=== PATIENT | male | born 1965 | race African-American/Black ===

== ENCOUNTER 2016-07-08 12:35 | Emergency (ER) | payer MEDICARE, MEDICAID ==
[2016-07-08 15:40] LABS: Hematocrit 45 % (42-52); Hemoglobin 14.4 g/dl (14.0-18.0); Mean Corpuscular HGB Conc 32 g/dl (31-36); Mean Corpuscular Hemoglobin 27 pg (27-31); Mean Corpuscular Volume 84 fL (80-94); Mean Platelet Volume 8 um3 (7.4-10.4); Red Blood Count 5.35 10^6/ul (4.0-5.4); Red Cell Distribution Width 15 % (10.5-15); White Blood Count 6.1 10^3/ul (3.5-10.8)
--- NOTE | 2016-07-08 15:45 | RAD ---
HISTORY: Palpitation COMPARISONS: May 09, 2016 VIEWS:1: Single frontal portable view of the chest at 3:21 PM FINDINGS: LINES AND TUBES: None. CARDIOMEDIASTINAL SILHOUETTE: The cardiomediastinal silhouette is normal for portable technique. PLEURA: The costophrenic angles are sharp. No pleural abnormalities are noted. LUNG PARENCHYMA: The lungs are clear. ABDOMEN: The upper abdomen is clear. There is no subphrenic gas. BONES AND SOFT TISSUES: No bone or soft tissue abnormalities are noted. IMPRESSION: NO ACTIVE CARDIOPULMONARY DISEASE.
[2016-07-08] MEDS ORDERED: Ketorolac INJ* 30 MG/ML 1 ML VIAL IV ONE (15:58)
[2016-07-08 16:01] LABS: ALT 31 U/L (7-52); Albumin 4.1 g/dL (3.2-5.2); Alkaline Phosphatase 113 U/L (34-104); BUN/Creatinine Ratio 12.8 (8-20); Blood Urea Nitrogen 15 mg/dL (6-24); C Reactive Protein 5.93 mg/L (< 5.00); CO2 Carbon Dioxide 28 mmol/L (22-32); Calcium 9.4 mg/dL (8.6-10.3); Chloride 106 mmol/L (101-111); Creatine Kinase 224 U/L (10-223); EGFR African American 84.2 (>60); EGFR Non-African American 65.5 (>60); Globulin 3.3 g/dL (2-4); Glucose 70 mg/dL (70-100); Lipase 21 U/L (11.0-82.0); Sodium 138 mmol/L (133-145); Total Protein 7.4 g/dL (6.4-8.9)
[2016-07-08 16:03] LABS: Troponin I 0.01 ng/mL (<0.04)
[2016-07-08 16:23] LABS: TSH (Thyroid Stimulating Horm) 1.97 mcIU/mL (0.34-5.60)
--- NOTE | 2016-07-08 16:24 | RAD ---
CLINICAL HISTORY: Left flank pain COMPARISON: April 16, 2015 TECHNIQUE: Multiple contiguous axial CT scans were obtained of the abdomen and pelvis, without intravenous contrast enhancement. Coronal and sagittal multiplanar reformations are submitted for review. Oral contrast was not administered. FINDINGS: The study is limited by the lack of intravenous contrast. This limits evaluation of the solid organs and vasculature. LUNG BASES: The lung bases are clear. LIVER: The liver is diffusely low in attenuation compared to the spleen. There are no focal hepatic parenchymal masses. The liver is mildly enlarged measuring 19.5 cm. BILE DUCTS: There is no intrahepatic or extrahepatic biliary dilatation. GALLBLADDER: The gallbladder is normal, without pericholecystic inflammatory change. PANCREAS: The pancreas is normal, without mass or ductal dilatation. SPLEEN: Normal in size and appearance. UPPER GI TRACT: Evaluation of the gastrointestinal tract is limited by incomplete gastric distention. The upper GI tract is unremarkable. SMALL BOWEL AND MESENTERY: The small bowel is normal in contour, course, and caliber. There is no obstruction or dilatation. COLON: The colon is normal in contour, course, caliber. There is no pericolonic inflammatory change. ADRENALS: Normal bilaterally. KIDNEYS: Renal cysts are noted. There is no appreciable hydronephrosis or nephrolithiasis. BLADDER: The bladder is smooth in contour. PELVIC ORGANS: The prostate gland is normal. The seminal vesicles are symmetric. AORTA: The aorta is normal. IVC: Unremarkable LYMPH NODES: There is no lymphadenopathy by size criteria. ABDOMINAL WALL: There is a fat-containing umbilical hernia. BONES AND SOFT TISSUES: There are mild diffuse degenerative changes. OTHER: None IMPRESSION: 1. HEPATOMEGALY WITH FATTY INFILTRATION OF LIVER. 2. NO APPRECIABLE HYDRONEPHROSIS OR NEPHROLITHIASIS
[2016-07-08 17:04] VITALS: BP 153/91
--- NOTE | 2016-07-08 22:00 | ED ---
Shemar Kim Matthew, scribed for Zhao Cadet MD on 07/08/16 at 1559 . Abdominal Pain/Male - HPI Summary HPI Summary: A 50 y/o male presents to the ED with diffuse abdominal pain since today. The pain is worse in the LUQ and radiates into the LLQ. Associated symptoms include nausea. The patient denies urinary symptoms and fever. He had normal BM this morning. The pain is unaffected by breathing and worsens when sitting up. He's also c/o of sinus congestion, which he states is secondary to seasonal allergies. No medications [employer]. PMHx includes CAD and 3 stents. - History of Current Complaint Chief Complaint: EDChestPainROMI Stated Complaint: JUST NOT FEELING Time Seen by Provider: 07/08/16 15:15 Hx Obtained From: Patient Onset/Duration: Gradual Onset, Lasting Hours, Still Present Timing: Constant Severity Initially: Moderate Severity Currently: Moderate Pain Intensity: 10 Pain Scale Used: 0-10 Numeric Location: Diffuse - worse in the LUQ Radiates: Yes Radiates to: Other - LLQ Aggravating Factor(s): Movement - Sitting up Alleviating Factor(s): Nothing Associated Signs And Symptoms: Positive: Nausea. Negative: Fever, Urinary Symptoms - Allergies/Home Medications Allergies/Adverse Reactions: Allergies Allergy/AdvReac Type Severity Reaction Status Date / Time Penicillins Allergy Severe Anaphylatic Verified 05/09/16 01:50 Shock Amoxicillin Allergy Unknown Swelling Verified 05/09/16 01:50 [From Augmentin XR] Clavulanic Acid Allergy Unknown Swelling Verified 05/09/16 01:50 [From Augmentin XR] VINEGAR Allergy Intermediate Hives Uncoded 05/09/16 01:50 MUSHROOMS Allergy Unknown Rash Uncoded 05/09/16 01:50 PMH/Surg Hx/FS Hx/Imm Hx Endocrine/Hematology History: Reports: Hx Anticoagulant Therapy - plavix Denies: Hx Diabetes, Hx Sickle Cell Disease, Hx Thyroid Disease Cardiovascular History: Reports: Hx Angina, Hx Coronary Artery Disease - STENTS X3 2011, Hx Hypercholesterolemia, Hx Hypertension, Hx Myocardial Infarction, Other Cardiovascular Problems/Disorders - HEART DISEASE, TIA'S, MORBID OBESITY Denies: Hx Congestive Heart Failure, Hx Pacemaker/ICD, Hx Valvular Heart Disease Respiratory History: Reports: Hx Sleep Apnea Denies: Hx Asthma, Hx Chronic Obstructive Pulmonary Disease (COPD) GI History: Reports: Hx Gastroesophageal Reflux Disease - WELL CONTROLLED Denies: Hx Ulcer History: Reports: Hx Renal Disease - cysts, Other Problems/Disorders - bilat cyst on kidneys Musculoskeletal History: Reports: Hx Arthritis - "all over", Hx Back Problems, Other Musculoskeletal History - RANDEE Denies: Hx Scoliosis Sensory History: Reports: Hx Cataracts - right eye, Hx Contacts or Glasses - glasses, Hx Hearing Aid - RIGHT EAR, Hx Hearing Problem - LEFT EAR HEARING AID Opthamlomology History: Reports: Hx Cataracts - right eye, Hx Contacts or Glasses - glasses Neurological History: Reports: Hx Transient Ischemic Attacks (TIA) Denies: Hx Dementia, Hx Headaches, Hx Seizures, Other Neuro Impairments/ Disorders Psychiatric History: Reports: Hx Depression Denies: Hx Panic Disorder - Cancer History Hx Chemotherapy: No - Surgical History Surgery Procedure, Year, and Place: APR 2004 sinus [facility] [place] ;. 2007 left knee arthroscopy [facility] [place] ;. 2012 left tympanoplasty WITH STAPES IMPLANT ([facility] MALLEOUS HEAD SERIAL # [id number] - PER [employer] INFORMATION SENT TO MRI ON ; IMPLANT IS STAINLESS STEEL STATES SOME DEGREE OF MAGNETISM TESTED MRI SAFE AT 1.5T ONLY - DR ANAYA APPROVED THIS INFORMATION FOR 1.5T ONLY). [facility] [place] ;. 2014 LEFT REVISION TYMPANOPLASTY/ MASTOIDECTOMY [facility] ;. 2011 HEART CATH - NO STENTS ;. 2010 HEART CATH WITH cardiac stents x 4 (PROMUS DRUG-ELUTING STENT OKAY IN NORMAL MODE ONLY, MAX 720 GAUSS/CM @ 1.5T) [facility] ; Hx Anesthesia Reactions: Yes - SEIZURE LIKE ACTIVITY; REINTUBATION AFTER LEFT EAR 2012 - Immunization History Date of Tetanus Vaccine: unknown Date of Influenza Vaccine: Fall 2011 Infectious Disease History: No Infectious Disease History: Denies: Hx Clostridium Difficile, Hx Hepatitis, Hx Human Immunodeficiency Virus (HIV), Hx of Known/Suspected MRSA, Hx Shingles, Hx Tuberculosis, Hx Known/ Suspected VRE, Hx Known/Suspected VRSA, History Other Infectious Disease, Traveled Outside the [place] in Last 30 Days - Family History Known Family History: Positive: Cardiac Disease, Hypertension, Diabetes - Social History Alcohol Use: None Hx Substance Use: No Substance Use Type: Reports: None Hx Tobacco Use: Yes Smoking Status (MU): Former Smoker Type: Cigarettes Length of Time of Smoking/Using Tobacco: 10-12 YRS Have You Smoked in the Last Year: No Review of Systems Constitutional: Negative Negative: Fever Eyes: Negative ENT: Negative Cardiovascular: Negative Respiratory: Negative Positive: Abdominal Pain - Diffuse worse in the LUQ , Nausea Genitourinary: Negative Musculoskeletal: Negative Skin: Negative Neurological: Negative Psychological: Normal All Other Systems Reviewed And Are Negative: Yes Physical Exam Triage Information Reviewed: Yes Vital Signs On Initial Exam: Initial Vitals Temp Pulse Resp BP Pulse Ox 97.8 F 66 20 175/92 100 07/08/16 12:42 07/08/16 12:42 07/08/16 12:42 07/08/16 12:42 07/08/16 12:42 Vital Signs Reviewed: Yes Appearance: Positive: Well-Appearing, No Pain Distress, Obese Skin: Positive: Warm, Skin Color Reflects Adequate Perfusion, Dry Head/Face: Positive: Normal Head/Face Inspection Eyes: Positive: Normal ENT: Positive: Normal ENT inspection Neck: Positive: Supple, Nontender Respiratory/Lung Sounds: Positive: Clear to Auscultation, Breath Sounds Present Cardiovascular: Positive: RRR Abdomen Description: Positive: Nontender, Soft Bowel Sounds: Positive: Present Musculoskeletal: Positive: Normal Neurological: Positive: Normal Psychiatric: Positive: Normal, Affect/Mood Appropriate - [place] Coma Scale Coma Scale Total: 15 Diagnostics - Vital Signs Vital Signs Temp Pulse Resp BP Pulse Ox 07/08/16 14:49 65 99 07/08/16 14:47 165/93 07/08/16 13:39 97.8 F 73 20 140/94 98 07/08/16 12:42 97.8 F 66 20 175/92 100 - Laboratory Lab Results: Lab Results 07/08/16 Range/Units 15:30 WBC 6.1 (3.5-10.8) 10^3/ul RBC 5.35 (4.0-5.4) 10^6/ul Hgb 14.4 (14.0-18.0) g/dl Hct 45 (42-52) % MCV 84 (80-94) fL MCH 27 (27-31) pg MCHC 32 (31-36) g/dl RDW 15 (10.5-15) % Plt Count 195 (150-450) 10^3/ul MPV 8 (7.4-10.4) um3 Neut % (Auto) 55.5 (38-83) % Lymph % (Auto) 30.5 (25-47) % [place] % (Auto) 11.0 H (1-9) % Eos % (Auto) 2.2 (0-6) % Baso % (Auto) 0.8 (0-2) % Absolute Neuts (auto) 3.4 (1.5-7.7) 10^3/ul Absolute Lymphs (auto) 1.9 (1.0-4.8) 10^3/ul Absolute Monos (auto) 0.7 (0-0.8) 10^3/ul Absolute Eos (auto) 0.1 (0-0.6) 10^3/ul Absolute Basos (auto) 0 (0-0.2) 10^3/ul Absolute Nucleated RBC 0.01 10^3/ul Nucleated RBC % 0.1 Result Diagrams: 07/08/16 15:30 07/08/16 15:30 Lab Statement: Any lab studies that have been ordered have been reviewed, and results considered in the medical decision making process. - Radiology CXR Xray Interpretation: No Acute Changes - IMPRESSION: NO ACTIVE CARDIOPULMONARY DISEASE. Radiology Interpretation Completed By: Radiologist - CT Abd/Pelvis CT CT Interpretation: Positive (See Comments) - IMPRESSION: 1. HEPATOMEGALY WITH FATTY INFILTRATION OF LIVER. 2. NO APPRECIABLE HYDRONEPHROSIS OR NEPHROLITHIASIS CT Interpretation Completed By: Radiologist - EKG 12:45 Cardiac Rate: NL - 65 bpm EKG Rhythm: Sinus Rhythm ST Segment: Non-Specific Abdominal Pain Fem Course/Dx - Course Assessment/Plan: A 50 y/o male presents to the ED with diffuse abdominal pain since today. Labs were reviewed. CXR shows no active cardiopulmonary disease. A/ P CT shows hepatomegaly with fatty infiltration of liver. EKG is NSR at 65 bpm with non-specific ST changes. The patient will be discharged home and follow-up with his PCP. - Diagnoses Provider Diagnoses: Abdominal pain Discharge - Discharge Plan Condition: Stable Disposition: HOME Patient Education Materials: Abdominal Pain (ED) Referrals: Carlin Chu MD [Primary Care Provider] - 2 Days Additional Instructions: Please follow-up with your primary care physician. The documentation as recorded by the Shemar brown Matthew accurately reflects the service I personally performed and the decisions made by , Zhao Cadet MD.
== END 2016-07-08 19:37 | disposition home or self-care (01) ==
LOC: ED 12:35
DX: R10.32 Left lower quadrant pain (principal); R10.12 Left upper quadrant pain; K76.0 Fatty (change of) liver, not elsewhere classified; R16.0 Hepatomegaly, not elsewhere classified; Z87.891 Personal history of nicotine dependence; Z79.02 Long term (current) use of antithrombotics/antiplatelets; I25.10 Atherosclerotic heart disease of native coronary artery without angina pectoris; I20.9 Angina pectoris, unspecified; Z88.1 Allergy status to other antibiotic agents; E78.00 Pure hypercholesterolemia, unspecified; I10 Essential (primary) hypertension; I25.2 Old myocardial infarction; Z86.73 Personal history of transient ischemic attack (TIA), and cerebral infarction without residual deficits; K21.9 Gastro-esophageal reflux disease without esophagitis; E66.01 Morbid (severe) obesity due to excess calories; Z88.0 Allergy status to penicillin; Z68.42 Body mass index [BMI] 45.0-49.9, adult
CPT/HCPCS: 36415; 71010; 74176; 80053; 82550; 82553; 83605; 83690; 83880; 84443; 84484; 85025; 85610; 85730; 86140; 93005; 96374; 99284; J1885

== ENCOUNTER 2016-08-10 09:52 | Emergency (ER) | payer MEDICARE, MEDICAID ==
[2016-08-10] MEDS ORDERED: Ondansetron INJ* 2 MG/ML VIAL IV ONE (10:25)
[2016-08-10] MEDS ORDERED: NS 0.9% 1000 ML* 1,000 ML IV ONE (10:25)
[2016-08-10] MEDS ORDERED: HYDROmorphone* 1 MG/ML 1 ML SYR IV ONE (10:25)
[2016-08-10 11:03] LABS: Hematocrit 42 % (42-52); Hemoglobin 13.8 g/dl (14.0-18.0); Mean Corpuscular HGB Conc 33 g/dl (31-36); Mean Corpuscular Hemoglobin 28 pg (27-31); Mean Corpuscular Volume 84 fL (80-94); Mean Platelet Volume 9 um3 (7.4-10.4); Red Cell Distribution Width 15 % (10.5-15); White Blood Count 5.4 10^3/ul (3.5-10.8)
[2016-08-10 11:26] LABS: Albumin 3.9 g/dL (3.2-5.2); BUN/Creatinine Ratio 13.3 (8-20); Calcium 9.3 mg/dL (8.6-10.3); EGFR African American 95.4 (>60); EGFR Non-African American 74.2 (>60); Globulin 2.9 g/dL (2-4); Total Bilirubin 0.4 mg/dL (0.2-1.0); Total Protein 6.8 g/dL (6.4-8.9)
[2016-08-10] MEDS ORDERED: Iohexol 350* (CONTRAST) 500 ML MDV IV ONE (11:33)
[2016-08-10 11:53] LABS: Erythrocyte Sed Rate 21 mm/Hr (0-20)
--- NOTE | 2016-08-10 12:39 | RAD ---
HISTORY: Headache, neck pain COMPARISONS: October 30, 2015 TECHNIQUE: Multiple contiguous axial CT scans were obtained of the head and neck After the administration of nonionic intravenous contrast timed to the systemic arterial phase of contrast enhancement. Coronal and sagittal multiplanar reformations are submitted for review. Multiple 3-D maximum intensity projection reconstructions are also submitted for review. FINDINGS: The study is limited by patient body habitus. CTA NECK: AORTIC ARCH: There is a normal three-vessel branching pattern of the aortic arch. There is no ostial or proximal stenosis of the cephalic great vessels. RIGHT VERTEBRAL ARTERY: The right vertebral artery is patent along its course, without stenosis. LEFT VERTEBRAL ARTERY: The left vertebral artery is patent along its course, without stenosis. DOMINANCE: The vertebral arteries are codominant. RIGHT COMMON CAROTID ARTERY: The right common carotid artery is patent. The right carotid bifurcation occurs at C3-C4 RIGHT INTERNAL CAROTID ARTERY: There is no right internal carotid artery stenosis by NASCET criteria. RIGHT EXTERNAL CAROTID ARTERY: The right external carotid artery is unremarkable. LEFT COMMON CAROTID ARTERY: The left common carotid artery is patent. The left carotid bifurcation occurs at C3-C4 LEFT INTERNAL CAROTID ARTERY: There is no left internal carotid artery stenosis by NASCET criteria. LEFT EXTERNAL CAROTID ARTERY: The left external carotid artery is unremarkable. VENOUS CIRCULATION: The venous system is unremarkable. SALIVARY GLANDS: The parotid glands, submandibular glands, sublingual glands are normal. NASAL CAVITY/NASOPHARYNX: The nasal cavity and nasopharynx are normal. ORAL CAVITY/OROPHARYNX: The oral cavity is obscured by streak artifact from dental amalgam. The visualized oral cavity and oropharynx are unremarkable. LARYNGEAL APPARATUS/HYPOPHARYNX: The laryngeal apparatus and hypopharynx are normal. UPPER AIRWAY/UPPER ESOPHAGUS: The visualized upper airway and esophagus are normal. LUNG APICES: The lung apices are clear. THYROID GLAND: The thyroid gland is normal. LYMPH NODES: There is no lymphadenopathy by size criteria. BONES AND SOFT TISSUES: There is elongation of the styloid processes bilaterally with ossification along the stylohyoid ligament CTA HEAD: INTRACRANIAL CIRCULATION: There is no aneurysm, vascular malformation, occlusion, or stenosis of the visualized intracranial circulation. The anterior communicating artery complex is clear. Bilateral posterior communicating arteries are identified. VENOUS CIRCULATION: The venous system is unremarkable. PERFUSION: There is no obvious parenchymal perfusion deficit. HEMORRHAGE/INFARCT: There is no hemorrhage or acute infarct. MASSES/SHIFT: There is no mass or shift. EXTRA-AXIAL SPACES: There are no extra-axial fluid collections. SULCI AND VENTRICLES: The sulci and ventricles are normal in size and position for the patient's stated age. CEREBRUM: There are no focal parenchymal abnormalities. BRAINSTEM: There are no focal parenchymal abnormalities. CEREBELLUM: There are no focal parenchymal abnormalities. PARANASAL SINUSES: There are-fluid levels within the maxillary sinuses bilaterally. There is mucosal thickening of ethmoid air cells and maxillary sinuses and sphenoid sinus ORBITS: The orbits are unremarkable. BONES AND SOFT TISSUE: Surgical clips are noted in the left infratemporal fossa. OTHER: The pulmonary artery is enlarged compared to the aorta IMPRESSION: 1. NO INTERNAL CAROTID ARTERY STENOSIS BY NASCET CRITERIA. 2. NO ANEURYSM, VASCULAR MALFORMATION, OCCLUSION, OR STENOSIS OF THE VISUALIZED INTRACRANIAL CIRCULATION. ELONGATION OF THE STYLOID PROCESSES BILATERALLY, WHICH CAN BE ASSOCIATED WITH [place] SYNDROME IN THE CORRECT CLINICAL SETTING. 3. MODERATE SINUS MUCOSAL INFLAMMATORY DISEASE, WITH AIR-FLUID LEVELS IN THE MAXILLARY SINUSES BILATERALLY. IN THE CORRECT CLINICAL SETTING, THIS MAY REPRESENT ACUTE SINUSITIS. 4. THERE IS ENLARGEMENT OF THE PULMONARY ARTERY WITH RESPECT TO THE AORTA, SUGGESTIVE OF PULMONARY ARTERIAL HYPERTENSION CPT II Codes: 3100F
[2016-08-10 12:40] LABS: Urine Bacteria Absent (Absent); Urine Bilirubin Negative (Negative); Urine Glucose Negative (Negative); Urine Nitrite Negative (Negative)
--- NOTE | 2016-08-10 13:20 | ED ---
Eunice Kim Anna, scribed for Cynthia Ortiz MD on 08/10/16 at 1022 . Headache - HPI Summary HPI Summary: Patient is a 50 y/o male coming to [facility] presenting with a left-sided GAMING that began two days ago. It became worse yesterday at 1230. He describes the severity of the pain as starting at 9/10 but progressing to 10/10 now. The pain extends from the top of his head on the left side and extends down to the left side of his neck and through his left arm. He states he can feel something move in his arm when he puts his arm down. He could not go back to sleep this morning. He has some left-sided weakness and bilateral leg edema at baseline. Denies difficulty speaking or tenderness on the back of his neck. His history is significant for HTN, STEMI, and a hernia. He doesnt normally get headaches. - History Of Current Complaint Chief Complaint: EDHeadache Stated Complaint: LEFT SIDE HEADACHE, LEFT ARM PAIN Time Seen by Provider: 08/10/16 10:10 Hx Obtained From: Patient - Allergies/Home Medications Allergies/Adverse Reactions: Allergies Allergy/AdvReac Type Severity Reaction Status Date / Time Penicillins Allergy Severe Anaphylatic Verified 08/10/16 09:55 Shock Amoxicillin Allergy Unknown Swelling Verified 08/10/16 09:55 [From Augmentin XR] Clavulanic Acid Allergy Unknown Swelling Verified 08/10/16 09:55 [From Augmentin XR] VINEGAR Allergy Intermediate Hives Uncoded 08/10/16 09:55 MUSHROOMS Allergy Unknown Rash Uncoded 08/10/16 09:55 PMH/Surg Hx/FS Hx/Imm Hx Endocrine/Hematology History: Reports: Hx Anticoagulant Therapy - plavix Denies: Hx Diabetes, Hx Sickle Cell Disease, Hx Thyroid Disease Cardiovascular History: Reports: Hx Angina, Hx Coronary Artery Disease - STENTS X3 2011, Hx Hypercholesterolemia, Hx Hypertension, Hx Myocardial Infarction, Other Cardiovascular Problems/Disorders - HEART DISEASE, TIA'S, MORBID OBESITY Denies: Hx Congestive Heart Failure, Hx Pacemaker/ICD, Hx Valvular Heart Disease Respiratory History: Reports: Hx Sleep Apnea Denies: Hx Asthma, Hx Chronic Obstructive Pulmonary Disease (COPD) GI History: Reports: Hx Gastroesophageal Reflux Disease - WELL CONTROLLED Denies: Hx Ulcer History: Reports: Hx Renal Disease - cysts, Other Problems/Disorders - bilat cyst on kidneys Musculoskeletal History: Reports: Hx Arthritis - "all over", Hx Back Problems, Other Musculoskeletal History - RANDEE Denies: Hx Scoliosis Sensory History: Reports: Hx Cataracts - right eye, Hx Contacts or Glasses - glasses, Hx Hearing Aid - RIGHT EAR, Hx Hearing Problem - LEFT EAR HEARING AID Opthamlomology History: Reports: Hx Cataracts - right eye, Hx Contacts or Glasses - glasses Neurological History: Reports: Hx Transient Ischemic Attacks (TIA) Denies: Hx Dementia, Hx Headaches, Hx Seizures, Other Neuro Impairments/ Disorders Psychiatric History: Reports: Hx Depression Denies: Hx Panic Disorder - Cancer History Hx Chemotherapy: No - Surgical History Surgery Procedure, Year, and Place: APR 2004 sinus [facility] ;. 2007 left knee arthroscopy [facility] ;. 2012 left tympanoplasty WITH STAPES IMPLANT ([employer] MALLEOUS HEAD SERIAL # [id number] - PER [employer] INFORMATION SENT TO MRI ON ; IMPLANT IS STAINLESS STEEL STATES SOME DEGREE OF MAGNETISM TESTED MRI SAFE AT 1.5T ONLY - DR ANAYA APPROVED THIS INFORMATION FOR 1.5T ONLY). [facility] [place] ;. 2014 LEFT REVISION TYMPANOPLASTY/ MASTOIDECTOMY [facility] ;. 2011 HEART CATH - NO STENTS ;. 2010 HEART CATH WITH cardiac stents x 4 (PROMUS DRUG-ELUTING STENT OKAY IN NORMAL MODE ONLY, MAX 720 GAUSS/CM @ 1.5T) [facility] ; Hx Anesthesia Reactions: Yes - SEIZURE LIKE ACTIVITY; REINTUBATION AFTER LEFT EAR 2012 - Immunization History Date of Tetanus Vaccine: unknown Date of Influenza Vaccine: Fall 2011 Infectious Disease History: No Infectious Disease History: Denies: Hx Clostridium Difficile, Hx Hepatitis, Hx Human Immunodeficiency Virus (HIV), Hx of Known/Suspected MRSA, Hx Shingles, Hx Tuberculosis, Hx Known/ Suspected VRE, Hx Known/Suspected VRSA, History Other Infectious Disease, Traveled Outside the [place] in Last 30 Days - Family History Known Family History: Positive: Cardiac Disease, Hypertension, Diabetes - Social History Lives: Alone Alcohol Use: None Hx Substance Use: No Substance Use Type: Reports: None Hx Tobacco Use: Yes Smoking Status (MU): Former Smoker Type: Cigarettes Length of Time of Smoking/Using Tobacco: 10-12 YRS Have You Smoked in the Last Year: No Review of Systems Positive: Arthralgia, Edema - bilateral legs, baseline Positive: Headache, Weakness - left-sided, baseline. Negative: Slurred Speech All Other Systems Reviewed And Are Negative: Yes Physical Exam Triage Information Reviewed: Yes Vital Signs On Initial Exam: Initial Vitals Temp Pulse Resp BP Pulse Ox 97.1 F 70 18 157/102 100 08/10/16 09:55 08/10/16 09:55 08/10/16 09:55 08/10/16 09:55 08/10/16 09:55 Vital Signs Reviewed: Yes Appearance: Positive: Well-Appearing, No Pain Distress Skin: Positive: Warm, Skin Color Reflects Adequate Perfusion, Dry Eyes: Positive: EOMI, SOLO ENT: Positive: Pharynx normal, TMs normal Neck: Positive: Supple, Tenderness @ - left side Respiratory/Lung Sounds: Positive: Clear to Auscultation, Breath Sounds Present Cardiovascular: Positive: RRR. Negative: Murmur, Rub, Other - gallop Abdomen Description: Positive: Nontender, Soft. Negative: Distended, Guarding, Other: - rebound Bowel Sounds: Positive: Present Musculoskeletal: Positive: Strength/ROM Intact, Edema Left - 2+, Edema Right - 2 + Neurological: Positive: Alert, Oriented to Person Place, Time, CN Intact II-III - II-XII Diagnostics - Vital Signs Vital Signs Temp Pulse Resp BP Pulse Ox 08/10/16 09:55 97.1 F 70 18 157/102 100 - Laboratory Lab Results: Lab Results 08/10/16 08/10/16 08/10/16 Range/Units 10:41 10:45 10:45 WBC 5.4 (3.5-10.8) 10^3/ul RBC 5.00 (4.0-5.4) 10^6/ul Hgb 13.8 L (14.0-18.0) g/dl Hct 42 (42-52) % MCV 84 (80-94) fL MCH 28 (27-31) pg MCHC 33 (31-36) g/dl RDW 15 (10.5-15) % Plt Count 177 (150-450) 10^3/ul MPV 9 (7.4-10.4) um3 Neut % (Auto) 63.7 (38-83) % Lymph % (Auto) 22.8 L (25-47) % Todd % (Auto) 9.8 H (1-9) % Eos % (Auto) 2.8 (0-6) % Baso % (Auto) 0.9 (0-2) % Absolute Neuts (auto) 3.5 (1.5-7.7) 10^3/ul Absolute Lymphs (auto) 1.2 (1.0-4.8) 10^3/ul Absolute Monos (auto) 0.5 (0-0.8) 10^3/ul Absolute Eos (auto) 0.1 (0-0.6) 10^3/ul Absolute Basos (auto) 0 (0-0.2) 10^3/ul Absolute Nucleated RBC 0.01 10^3/ul Nucleated RBC % 0.1 ESR 21 H (0-20) mm/Hr Carbon Monoxide Screen (<3.5) % Sodium 138 (133-145) mmol/L Potassium 4.0 (3.5-5.0) mmol/L Chloride 106 (101-111) mmol/L Carbon Dioxide 26 (22-32) mmol/L Anion Gap 6 (2-11) mmol/L BUN 14 (6-24) mg/dL Creatinine 1.05 (0.67-1.17) mg/dL Est GFR ( Amer) 95.4 (>60) Est GFR (Non-Af Amer) 74.2 (>60) BUN/Creatinine Ratio 13.3 (8-20) Glucose 119 H (70-100) mg/dL Lactic Acid 1.3 (0.5-2.0) mmol/L Calcium 9.3 (8.6-10.3) mg/dL Total Bilirubin 0.40 (0.2-1.0) mg/dL AST 16 (13-39) U/L ALT 24 (7-52) U/L Alkaline Phosphatase 100 (34-104) U/L Total Protein 6.8 (6.4-8.9) g/dL Albumin 3.9 (3.2-5.2) g/dL Globulin 2.9 (2-4) g/dL Albumin/Globulin Ratio 1.3 (1-3) Urine Color Urine Appearance Urine pH (5-9) Ur Specific [place] (1.010-1.030) Urine Protein (Negative) Urine Ketones (Negative) Urine Blood (Negative) Urine Nitrate (Negative) Urine Bilirubin (Negative) Urine Urobilinogen (Negative) Ur Leukocyte Esterase (Negative) Urine WBC (Auto) (Absent) Urine RBC (Auto) (Absent) Ur Squamous Epith Cells (Absent) Urine Bacteria (Absent) Urine Glucose (Negative) 08/10/16 08/10/16 Range/Units 11:22 12:15 WBC (3.5-10.8) 10^3/ul RBC (4.0-5.4) 10^6/ul Hgb (14.0-18.0) g/dl Hct (42-52) % MCV (80-94) fL MCH (27-31) pg MCHC (31-36) g/dl RDW (10.5-15) % Plt Count (150-450) 10^3/ul MPV (7.4-10.4) um3 Neut % (Auto) (38-83) % Lymph % (Auto) (25-47) % Todd % (Auto) (1-9) % Eos % (Auto) (0-6) % Baso % (Auto) (0-2) % Absolute Neuts (auto) (1.5-7.7) 10^3/ul Absolute Lymphs (auto) (1.0-4.8) 10^3/ul Absolute Monos (auto) (0-0.8) 10^3/ul Absolute Eos (auto) (0-0.6) 10^3/ul Absolute Basos (auto) (0-0.2) 10^3/ul Absolute Nucleated RBC 10^3/ul Nucleated RBC % ESR (0-20) mm/Hr Carbon Monoxide Screen <3.5 (<3.5) % Sodium (133-145) mmol/L Potassium (3.5-5.0) mmol/L Chloride (101-111) mmol/L Carbon Dioxide (22-32) mmol/L Anion Gap (2-11) mmol/L BUN (6-24) mg/dL Creatinine (0.67-1.17) mg/dL Est GFR ( Amer) (>60) Est GFR (Non-Af Amer) (>60) BUN/Creatinine Ratio (8-20) Glucose (70-100) mg/dL Lactic Acid (0.5-2.0) mmol/L Calcium (8.6-10.3) mg/dL Total Bilirubin (0.2-1.0) mg/dL AST (13-39) U/L ALT (7-52) U/L Alkaline Phosphatase (34-104) U/L Total Protein (6.4-8.9) g/dL Albumin (3.2-5.2) g/dL Globulin (2-4) g/dL Albumin/Globulin Ratio (1-3) Urine Color Yellow Urine Appearance Clear Urine pH 7.0 (5-9) Ur Specific [place] 1.021 (1.010-1.030) Urine Protein Negative (Negative) Urine Ketones Negative (Negative) Urine Blood 1+ H (Negative) Urine Nitrate Negative (Negative) Urine Bilirubin Negative (Negative) Urine Urobilinogen Negative (Negative) Ur Leukocyte Esterase Negative (Negative) Urine WBC (Auto) Trace(0-5/hpf) (Absent) Urine RBC (Auto) 2+(6-10/hpf) H (Absent) Ur Squamous Epith Cells Present H (Absent) Urine Bacteria Absent (Absent) Urine Glucose Negative (Negative) Result Diagrams: 08/10/16 10:41 08/10/16 10:45 Lab Statement: Any lab studies that have been ordered have been reviewed, and results considered in the medical decision making process. - CT Head CTA CT Interpretation: Positive (See Comments) CT Interpretation Completed By: Radiologist - IMPRESSION: 1. NO INTERNAL CAROTID ARTERY STENOSIS BY NASCET CRITERIA. 2. NO ANEURYSM, VASCULAR MALFORMATION, OCCLUSION, OR STENOSIS OF THE VISUALIZED INTRACRANIAL CIRCULATION. ELONGATION OF THE STYLOID PROCESSES BILATERALLY, WHICH CAN BE ASSOCIATED WITH LEVELOCK SYNDROME IN THE CORRECT CLINICAL SETTING. 3. MODERATE SINUS MUCOSAL INFLAMMATORY DISEASE, WITH AIR-FLUID LEVELS IN THE MAXILLARY SINUSES BILATERALLY. IN THE CORRECT CLINICAL SETTING, THIS MAY REPRESENT ACUTE SINUSITIS. 4. THERE IS ENLARGEMENT OF THE PULMONARY ARTERY WITH RESPECT TO THE AORTA, SUGGESTIVE OF PULMONARY ARTERIAL HYPERTENSION - EKG 1013 Cardiac Rate: NL - 66 bpm EKG Rhythm: Sinus Rhythm EKG Interpretation: Non-specific T-wave changes lateral lead National Institutes Of Health - NIH Scale Level of Consciousness: Alert/Keenly Responsive Ask Patient the Month and His/Her Age: Both Correct Ask Pt to Open/Close Eyes and Doctor Of Audiology/Release Non-Paretic Hand: Both Correctly Best Gaze (Only Horizontal Eye Movement): Normal Visual Field Testing: No Visual Loss Facial Paresis-Pt to Smile & Close Eyes or Grimace Symmetry: Normal/Symmetrical Motor Function - Right Arm: No Drift-Holds 10 Seconds Motor Function - Left Arm: No Drift-Holds 10 Seconds Motor Function - Right Leg: No Drift-Holds 10 Seconds Motor Function - Left Leg: No Drift-Holds 10 Seconds Limb Ataxia-Must be out of Proportion to Weakness Present: Absent Sensory (Use Pinprick to Test Arms/Legs/Trunk/Face): Pinprick Less on Affected Best Language (Describe Picture, Name Items): No Aphasia Dysarthria (Read Several Words): Normal Extinction and Inattention: No Abnormality Total Score: 1 Re-Evaluation - Re-Evaluation First Eval Re-Evaluation Time: 13:07 Comment: Discussed results and plan of care with patient. Patient agrees with plan. Headache Course/Dx - Course Course Of Treatment: 50 yo male with multiple medical problems with left sided gaming radiating down neck to arm, cta head and neck neg except for sinusitis. Of note he had a mastoidectomy on that left side. Pt will be treated for sinusitis and given pain meds close f/u pmd. I doubt sah, nih scale negative - Diagnoses Provider Diagnoses: Headache, Sinusitis Discharge - Discharge Plan Condition: Critical Disposition: HOME Prescriptions: Levofloxacin TAB* [Levaquin TAB*] 750 mg PO DAILY #10 tab oxyCODONE/Acetamin 5/325 MG* [Percocet 5/325 TAB*] 1 tab PO Q8H PRN #14 tab MDD 3 PRN Reason: Pain The documentation as recorded by the Eunice brown Anna accurately reflects the service I personally performed and the decisions made by me, Cynthia Ortiz MD.
[2016-08-10 13:47] VITALS: BP 135/85
== END 2016-08-10 13:46 | disposition home or self-care (01) ==
LOC: ED 09:52
DX: J32.9 Chronic sinusitis, unspecified (principal); R51 Headache; Z87.891 Personal history of nicotine dependence
CPT/HCPCS: 36415; 70496; 70498; 80053; 81003; 81015; 82375; 83605; 85025; 85652; 93005; 96374; 96375; 99282; J1170; J2405; Q9967

== ENCOUNTER 2016-09-20 10:20 | Observation (INO) | payer MEDICARE, MEDICAID ==
[2016-09-20] MEDS ORDERED: Nitroglycerin TAB 0.4 MG* 0.4 MG TAB SL ONE (11:16)
[2016-09-20] MEDS ORDERED: Aspirin Low Dose CHEW TAB* 81 MG PO ONE (11:16)
[2016-09-20 11:26] LABS: Hematocrit 47 % (42-52); Mean Corpuscular HGB Conc 32 g/dl (31-36); Mean Corpuscular Hemoglobin 27 pg (27-31); Mean Corpuscular Volume 84 fL (80-94); Mean Platelet Volume 9 um3 (7.4-10.4); Red Blood Count 5.57 10^6/ul (4.0-5.4); Red Cell Distribution Width 15 % (10.5-15); White Blood Count 6.5 10^3/ul (3.5-10.8)
[2016-09-20] MEDS ORDERED: Morphine INJ* 4 MG/ML 1 ML SYRINGE IV ONE (11:33)
[2016-09-20] MEDS ORDERED: Ondansetron INJ* 2 MG/ML VIAL IV ONE (11:33)
[2016-09-20 11:38] LABS: Albumin 4.4 g/dL (3.2-5.2); BUN/Creatinine Ratio 12.5 (8-20); Calcium 9.7 mg/dL (8.6-10.3); EGFR African American 81.8 (>60); EGFR Non-African American 63.6 (>60); Globulin 3.2 g/dL (2-4); Potassium 3.8 mmol/L (3.5-5.0); Total Bilirubin 0.5 mg/dL (0.2-1.0); Total Protein 7.6 g/dL (6.4-8.9)
[2016-09-20 11:40] LABS: Troponin I 0.01 ng/mL (<0.04)
[2016-09-20] MEDS ORDERED: Ondansetron INJ* 2 MG/ML VIAL IV PRN (13:11)
[2016-09-20] MEDS ORDERED: Albuterol 2.5 MG/3 ML NEB.SOL* (0.083%) INH PRN (13:16)
[2016-09-20] MEDS ORDERED: Potassium Chlor TAB* 20 MEQ TAB.ER PO ONE (13:24)
[2016-09-20 13:41] LABS: Magnesium 2.1 mg/dL (1.9-2.7)
[2016-09-20] MEDS: Acetaminophen TAB* 325 MG PO PRN ×2 (14:52→21:29)
[2016-09-20] MEDS: Heparin VIAL(*) 5000 UNITS/ML VIAL (FIVE THOUSAND) SUBCUT SCH ×2 (14:54→21:29)
--- NOTE | 2016-09-20 16:00 | HP ---
HISTORY AND PHYSICAL: DATE OF ADMISSION: 09/20/16 PRIMARY CARE PROVIDER: Carlin Chu MD. ATTENDING PHYSICIAN WHILE IN THE HOSPITAL: Renaldo Pacheco MD * (report dictated by Justin Bains NP). CHIEF COMPLAINT: Chest pain. HISTORY OF PRESENT ILLNESS: Mr. Glaser is a 50-year-old male patient who comes into the ER today with complaints of chest discomfort on the right side described as, in his words, a nudge. He says it does not feel like a sharp pain , but he does state that it gets worse with taking a deep breath in the office and states the pain was going down his right arm. He noticed the pain last night. He did not seek attention for it. He was supposed to go to a primary care provider appointment today. The patient explained to them that he had been having chest pain. He actually woke up again at 5:30 this morning, had right-sided chest pain again, worse with taking a deep breath and also going down the right arm. He said that he felt very warm when he came into the ER and he felt nauseous. He was having this constant right-sided chest discomfort. It got worse with taking a deep breath. He said he also was having some frequent palpitations, he says like when he was having palpitations in his chest. He denied having any recent cough, fevers, chills, no alleviating factors. He took an aspirin, but he has not taken a nitro. He states that he has not had any fevers and there has been no change in medications and no URI-type symptoms. He had associated nausea with this, but no vomiting. He came to the ER, he was evaluated here and there was concern because the patient had a significant cardiac history with history of CAD, MT, PVCs, hypertension, he has had a stroke in the past and he is a former smoker. Because of these risk factors and he has a family history, the hospitalist service was asked to evaluate for admission. PAST MEDICAL HISTORY: Significant for: 1. History of MT. 2. CAD. 3. RANDEE. 4. PVCs. 5. History of a run of V-tach on Holter monitor. 6. Venous insufficiency. 7. Arthritis. 8. Asthma. 9. Hypertension. 10. History of CVA with no residual deficits. PAST SURGICAL HISTORY: He has had a cardiac catheterization. He has had 3 stents. He has had inner ear surgery and he has had knee arthroscopies. HOME MEDICATIONS: According to an office note from his primary benefits coordinator includes: 1. Potassium chloride 80 mEq by mouth alternating with 2 tablets a day. 2. ProAir 2 puffs 4 times a day as needed. 3. Lipitor 40 mg at bedtime. 4. Nitro 0.4 mg sublingual every 5 minutes as needed for chest pain x3 doses. 5. Triamterene with hydrochlorothiazide 1 tablet p.o. daily, but he has been out of this medication for a while and this was in May. 6. Aspirin 325 mg p.o. daily. 7. Plavix 75 mg p.o. daily. 8. Bystolic 5 mg daily. 9. Advair 250/50 mcg 1 inhaler every 12 hours. 10. Albuterol nebulizer 1 neb every 6 hours as needed. ALLERGIES TO MEDICATIONS: INCLUDE PENICILLIN, VINEGAR, and MUSHROOMS. FAMILY HISTORY: Both his parents had CHF. He did have a brother who of a sudden cardiac event. SOCIAL HISTORY: He does not smoke anymore. He use to be a pack a day smoker. He does not drink alcohol. Surrogate decision maker is his sister, Valarie. REVIEW OF SYSTEMS: There is no documented fever. He denied having any significant weight change. There was no double vision. There is no ear discharge. He denies having any rhinorrhea, no sore throat, no thyroid enlargement. Chest pain per my HPI. No orthopnea. No nocturnal dyspnea. There is no abdominal pain. No nausea, no vomiting. No dysuria, no frequency, no seizure. No loss of consciousness. No pruritus. No skin ulcerations. Review of 14 systems completed, all others negative. PHYSICAL EXAMINATION GENERAL: At this time, Mr. Glaser is a 50-year-old male patient. He is morbidly obese. He is sitting in the ER stretcher. He does not appear to be in any acute distress. VITAL SIGNS: Blood pressure 118/89, pulse 63, respirations 18, O2 sat 99%, temperature 96.9. HEENT: Head is atraumatic, normocephalic. Eyes: EOMs are intact. Sclerae anicteric and not pale. Throat: Oral mucosa appears to be moist. No oropharyngeal erythema. NECK: Supple. LUNGS: Clear to auscultation bilaterally. No wheezes, rales, or rhonchi. HEART: Sounds S1, S2. Regular rate and rhythm. No murmurs, rubs, or gallops were appreciated. ABDOMEN: Soft, flat, nontender. Bowel sounds present. EXTREMITIES: Pulses 2+ throughout. He does have chronic venous insufficiency, but no ulcers. He did have +1 pitting edema bilaterally. NEUROLOGICALLY: He is awake. He is alert. He is oriented x3. Tongue midline. Acting Instructor are equal. No gross focal deficits. SKIN: Grossly intact. DIAGNOSTIC STUDIES/LAB DATA: The labs today revealed a WBC of 6.5, RBC of 5.57 , hemoglobin of 15.0, hematocrit of 47, platelet count of 197. Sodium 138, potassium 3.8, chloride 106, bicarb 26, BUN 15, creatinine 1.20, glucose 92, lactate 1.1. AST 18, ALT 29, alk phos 112, troponin 0.01. He had an EKG obtained today, which revealed a normal sinus rhythm with PVC, he had inverted T-waves in lead I and aVL, which he has had in the past. No significant changes with the exception of PVCs. He had a chest x-ray obtained today which on my impression, I do not appreciate any acute infiltrates or effusions. Report is pending. No pulmonary edema. Old medical records were reviewed. ASSESSMENT AND PLAN: Mr. Glaser is a 50-year-old male patient with well- documented history of coronary artery disease and history of MT, coming into the ER today with complaints of chest pain. He will be admitted under observation status for: 1. Chest pain. His symptoms are atypical, but he has significant risk factors for acute coronary syndrome. I would like to go ahead and check a D-dimer, place him on telemetry, cycle his troponins, get a lipid panel and A1c in the morning. He will continue with aspirin, statin, beta-angelo and Plavix for the time being, cycle his troponins, and obtain Cardiology input, but I do think he needs a stress test. He has not had one in a year according to Dr. Alcaraz's notes and that was normal about a year ago, so I think a repeat stress test is appropriate. 2. History of coronary artery disease. Continue medications as prescribed and continue the aspirin, statin, and Plavix. 3. Obstructive sleep apnea. Continue his meds as prescribed. 4. History of premature ventricular contractions. We will try to keep his potassium right around 4 and keep his mag again around 2. His potassium was 3.8 , so I am going to go ahead and give him 20 mEq potassium today. We will add on a magnesium. He does have a history of ventricular tachycardia, again we will try to keep his electrolytes, his mag around 2 and his potassium around 4. 5. Hyperlipidemia. Continue statin therapy. 6. History of asthma. Continue p.r.n. albuterol and Advair. 7. Hypertension. Continue meds as prescribed. 8. History of cerebrovascular accident. Continue secondary prevention. 9. Arthritis. P.r.n. Tylenol as available. Follow up with primary. 10. Venous insufficiency. He will continue with elevating the lower extremities. 11. DVT prophylaxis. He is high risk, we will place him on heparin subcu. 12. Fluids, electrolytes, and nutrition. He can have a heart healthy diet and will be n.p.o. after midnight. 13. Code status is full code. TIME SPENT: On this admission 60 minutes, greater than half the time was spent [id number] with the patient obtaining my history and physical; other half the time was spent going over the plan of care with the patient and implementing the plan of care. I did discuss the plan of care with my attending, Dr. Pacheco. He is in agreement. JUSTIN BAINS NP CC: Carlin Chu MD * [id number]/[facility] #: [id number] MEDHAT
[2016-09-20] MEDS: Mometasone/Formoter 200/5 MDI INH SCH (21:47)
[2016-09-21] MEDS: Heparin VIAL(*) 5000 UNITS/ML VIAL (FIVE THOUSAND) SUBCUT SCH ×3 (05:26→20:16)
[2016-09-21 06:14] LABS: Hematocrit 43 % (42-52); Hemoglobin 13.8 g/dl (14.0-18.0); Mean Corpuscular HGB Conc 32 g/dl (31-36); Mean Corpuscular Hemoglobin 27 pg (27-31); Mean Corpuscular Volume 85 fL (80-94); Mean Platelet Volume 8 um3 (7.4-10.4); Red Blood Count 5.06 10^6/ul (4.0-5.4); Red Cell Distribution Width 15 % (10.5-15); White Blood Count 4.6 10^3/ul (3.5-10.8)
[2016-09-21 06:35] LABS: BUN/Creatinine Ratio 10.3 (8-20); Calcium 9.2 mg/dL (8.6-10.3); EGFR African American 84.2 (>60); EGFR Non-African American 65.5 (>60); HDL Cholesterol 31.1 mg/dL; Potassium 3.6 mmol/L (3.5-5.0)
[2016-09-21] MEDS: Clopidogrel TAB* 75 MG PO SCH (08:16)
[2016-09-21] MEDS: Atorvastatin* 40 MG TAB PO SCH (08:16)
[2016-09-21] MEDS ORDERED: NEBIVOLOL 5 MG PO SCH (09:00)
[2016-09-21] MEDS: Mometasone/Formoter 200/5 MDI INH SCH ×2 (09:01→19:45)
--- NOTE | 2016-09-21 09:21 | RAD ---
INDICATION: Chest pain. COMPARISON: Comparison is made with a prior chest x-ray study from July 08, 2016. TECHNIQUE: A portable view of the chest was obtained. FINDINGS: Cardiac and mediastinal contours appear to be within normal limits. The lungs are clear. No pleural effusion is seen. IMPRESSION: NO EVIDENCE FOR ACUTE DISEASE.
[2016-09-21] MEDS ORDERED: Regadenoson* 0.4 MG/5 ML SYRINGE ONE (10:34)
--- NOTE | 2016-09-21 13:51 | PN ---
Subjective Date of Service: 09/21/16 Interval History: No more chest pain since admission. He wasn't sure if his chest pain yesterday was cardiac, so he didn't take a NTG. No new c/o. Objective Active Medications: Acetaminophen (Tylenol Tab*) 650 mg PO Q4H PRN PRN Reason: FEVER/PAIN Last Admin: 09/20/16 21:29 Dose: 650 mg Albuterol (Ventolin 2.5 Mg/3 Ml Neb.Alem*) 2.5 mg INH Q2H PRN PRN Reason: SOB/WHEEZING Atorvastatin Calcium (Lipitor*) 40 mg PO DAILY [facility] Last Admin: 09/21/16 08:16 Dose: 40 mg Clopidogrel Bisulfate (Plavix Tab*) 75 mg PO DAILY [facility] Last Admin: 09/21/16 08:16 Dose: 75 mg Heparin Sodium (Porcine) (Heparin Vial(*)) 5,000 units SUBCUT Q8HR [facility] Last Admin: 09/21/16 05:26 Dose: 5,000 units Mometasone Furoate/Formoterol Fumar (Dulera 200/5 Mdi*) 2 puff INH BID [facility] Last Admin: 09/21/16 09:01 Dose: 2 puff Nebivolol (Bystolic Tab (Nf)) 5 mg PO DAILY [facility] Ondansetron HCl (Zofran Inj*) 4 mg IV Q6H PRN PRN Reason: NAUSEA Vital Signs 09/20/16 09/20/16 09/20/16 13:56 14:00 14:28 Temperature 97.1 F 97.8 F Pulse Rate 63 58 61 Respiratory 16 15 18 Rate Blood Pressure 149/87 130/83 147/99 (mmHg) O2 Sat by Pulse 96 97 Oximetry 09/20/16 09/20/16 09/20/16 15:27 19:17 20:00 Temperature 97.6 F 97.9 F Pulse Rate 56 57 51 Respiratory 18 18 16 Rate Blood Pressure 136/76 140/86 (mmHg) O2 Sat by Pulse 100 98 97 Oximetry 09/20/16 09/21/16 09/21/16 23:55 03:35 07:31 Temperature 97.5 F 98.4 F Pulse Rate 59 58 58 Respiratory 12 16 16 Rate Blood Pressure 159/111 152/106 135/81 (mmHg) O2 Sat by Pulse 98 98 98 Oximetry 09/21/16 09:02 Temperature Pulse Rate 86 Respiratory Rate Blood Pressure (mmHg) O2 Sat by Pulse 96 Oximetry Oxygen Devices in Use Now: CPAP/BiPAP Appearance: Partly up in bed. He was sleeping with his own CPAP in place. Eyes: No Scleral Icterus Neck: NL Appearance and Movements; NL JVP, No Thyroid Enlargement, Masses Respiratory: Symmetrical Chest Expansion and Respiratory Effort, Clear to Auscultation, Clear to Percussion Cardiovascular: NL Sounds; No Murmurs; No JVD, RRR, No Edema, - Extremities: No Edema, No Clubbing, Cyanosis, - Skin: No Rash or Ulcers, No Nodules or Sclerosis, - Neurological: Alert and Oriented x 3, NL Sensation Result Diagrams: 09/21/16 05:35 09/21/16 05:35 Assess/Plan/Problems-Billing Assessment: - Patient Problems (1) CAD (coronary artery disease) Current Visit: Yes Status: Acute Code(s): I25.10 - ATHSCL HEART DISEASE OF [place] CORONARY ARTERY W/O ANG PCTRS SNOMED Code(s): 93357473 Comment: [place], 3 stents 2010. Second part of chemical nuclear stress 09/22. (2) RANDEE (obstructive sleep apnea) Current Visit: No Status: Chronic Priority: Medium Code(s): G47.33 - OBSTRUCTIVE SLEEP APNEA (ADULT) (PEDIATRIC) SNOMED Code(s): 18109654 Comment: Pt brought his own CPAP, seems to like to use it. (3) HTN (hypertension) Current Visit: No Status: Acute Priority: Medium Code(s): I10 - ESSENTIAL (PRIMARY) HYPERTENSION SNOMED Code(s): 30305884 Comment: Continue nebivolol. (4) Morbid obesity Current Visit: Yes Status: Acute Code(s): E66.01 - MORBID (SEVERE) OBESITY DUE TO EXCESS CALORIES SNOMED Code(s): 314748227 Comment: BMI 49.4. (5) CVA (cerebral vascular accident) Current Visit: No Status: Acute Priority: Medium Code(s): I63.9 - CEREBRAL INFARCTION, UNSPECIFIED SNOMED Code(s): 993003747 Comment: S/p TPA 2016 MRI brain on 10/31/15 unremarkable Echo 10/30/15: EF 55%, mod LVH
[2016-09-22] MEDS: Heparin VIAL(*) 5000 UNITS/ML VIAL (FIVE THOUSAND) SUBCUT SCH (05:51)
[2016-09-22 07:58] VITALS: BP 148/80
[2016-09-22] MEDS: Mometasone/Formoter 200/5 MDI INH SCH (08:02)
[2016-09-22] MEDS: Atorvastatin* 40 MG TAB PO SCH (08:26)
[2016-09-22] MEDS: Clopidogrel TAB* 75 MG PO SCH (08:26)
[2016-09-22] MEDS ORDERED: Nebivolol TAB (NF) 2.5 MG TAB PO SCH (09:00)
--- NOTE | 2016-09-22 10:43 | RAD ---
Edited for charges. INDICATION: Chest pain with multiple risk factors for coronary artery disease. COMPARISON: Most recent similar examination is dated July 14, 2012 that demonstrated a large fixed defect in the inferior lateral left ventricular wall. TECHNIQUE: SPECT imaging was performed. Stress images only were acquired after the injection of 25 millicuries of technetium 99m tetrofosmin. The patient received intravenous Lexiscan prior to the stress image acquisition. FINDINGS: The dynamic images reveal paradoxical wall motion at the anteroseptal left ventricular wall similar in appearance to the previous cardiac scan. Again noted is a fixed defect involving the inferior lateral ventricular wall. This appearance is similar to the previous cardiac scan. The ejection fraction is measured at 54%. IMPRESSION: There is scintigraphic evidence for a fixed defect involving the inferior lateral left ventricular wall similar in appearance to the July 14, 2012 examination. ASSESSMENT: Intermediate to high risk. Based on imaging criteria from ACC/AHA 2002 Guideline Update for the Management of Patients With Chronic Stable Angina Table 23. Noninvasive Risk Stratification. MTDD
--- NOTE | 2016-09-22 11:12 | DCNOTE ---
Subjective Date of Service: 09/22/16 Interval History: No more chest discomforta. No new c/o. Objective Active Medications: Acetaminophen (Tylenol Tab*) 650 mg PO Q4H PRN PRN Reason: FEVER/PAIN Last Admin: 09/20/16 21:29 Dose: 650 mg Albuterol (Ventolin 2.5 Mg/3 Ml Neb.Alem*) 2.5 mg INH Q2H PRN PRN Reason: SOB/WHEEZING Aspirin (Ecotrin Ec Tab*) 325 mg PO DAILY [facility] Atorvastatin Calcium (Lipitor*) 40 mg PO DAILY [facility] Last Admin: 09/22/16 08:26 Dose: 40 mg Clopidogrel Bisulfate (Plavix Tab*) 75 mg PO DAILY [facility] Last Admin: 09/22/16 08:26 Dose: 75 mg Heparin Sodium (Porcine) (Heparin Vial(*)) 5,000 units SUBCUT Q8HR [facility] Last Admin: 09/22/16 05:51 Dose: 5,000 units Mometasone Furoate/Formoterol Fumar (Dulera 200/5 Mdi*) 2 puff INH BID [facility] Last Admin: 09/22/16 08:02 Dose: 2 puff Nebivolol (Bystolic Tab (Nf)) 5 mg PO DAILY [facility] Last Admin: 09/22/16 10:15 Dose: 5 mg Ondansetron HCl (Zofran Inj*) 4 mg IV Q6H PRN PRN Reason: NAUSEA Vital Signs 09/21/16 09/21/16 09/21/16 15:31 19:42 19:48 Temperature 97.3 F 97.8 F Pulse Rate 62 64 68 Respiratory 20 16 18 Rate Blood Pressure 156/110 133/65 (mmHg) O2 Sat by Pulse 99 99 95 Oximetry 09/21/16 09/21/16 09/22/16 23:29 23:40 00:50 Temperature 97.8 F Pulse Rate 58 59 Respiratory 16 Rate Blood Pressure 165/106 139/84 (mmHg) O2 Sat by Pulse 97 96 Oximetry 09/22/16 09/22/16 09/22/16 03:18 07:42 08:00 Temperature 97.3 F 98.4 F Pulse Rate 59 58 Respiratory 16 16 17 Rate Blood Pressure 134/80 148/80 (mmHg) O2 Sat by Pulse 97 99 Oximetry 09/22/16 08:03 Temperature Pulse Rate 59 Respiratory 17 Rate Blood Pressure (mmHg) O2 Sat by Pulse 97 Oximetry Oxygen Devices in Use Now: None Appearance: Alert, sitting on the edge of his bed. In good spirits. Looks comfortable. Eyes: No Scleral Icterus Neurological: Alert and Oriented x 3, NL Sensation Result Diagrams: 09/21/16 05:35 09/21/16 05:35 Assess/Plan/Problems-Billing Assessment: - Patient Problems (1) CAD (coronary artery disease) Current Visit: Yes Status: Acute Code(s): I25.10 - ATHSCL HEART DISEASE OF [place] CORONARY ARTERY W/O ANG PCTRS SNOMED Code(s): 65057980 Comment: [place], 3 stents 2010. Chemical nuclear stress showed old IVMI, nl LVEF , no reversible defects, unchanged c/w 07/14/12. Pt will take his ASA when he gets home. (2) RANDEE (obstructive sleep apnea) Current Visit: No Status: Chronic Priority: Medium Code(s): G47.33 - OBSTRUCTIVE SLEEP APNEA (ADULT) (PEDIATRIC) SNOMED Code(s): 05919802 Comment: Pt brought his own CPAP, seems to like to use it. (3) HTN (hypertension) Current Visit: No Status: Acute Priority: Medium Code(s): I10 - ESSENTIAL (PRIMARY) HYPERTENSION SNOMED Code(s): 92546190 Comment: Continue nebivolol. (4) Morbid obesity Current Visit: Yes Status: Acute Code(s): E66.01 - MORBID (SEVERE) OBESITY DUE TO EXCESS CALORIES SNOMED Code(s): 020548183 Comment: BMI 49.4. (5) CVA (cerebral vascular accident) Current Visit: No Status: Acute Priority: Medium Code(s): I63.9 - CEREBRAL INFARCTION, UNSPECIFIED SNOMED Code(s): 453670704 Comment: S/p TPA 2016 MRI brain on 10/31/15 unremarkable Echo 10/30/15: EF 55%, mod LVH Status and Disposition: Discharge now. Fup Dr. Chu.
--- NOTE | 2016-09-23 02:50 | DS ---
CC: Carlin Chu MD DISCHARGE SUMMARY: DATE OF ADMISSION: DATE OF DISCHARGE: 09/22/16 HOSPITAL COURSE: This 51-year-old man presented with chest pain. It was a right- sided pain, went down his right arm. It is not related to exertion. I note he has had quite a number of evaluations in the emergency room as well as admissions for chest pain, all with normal troponin levels, actual ly over 100 normal troponin levels. He did, however, have an inferior wall MD in 2010 with 3 stents . Rest of the history is detailed in the admission note. The patient was admitted to the telemetry unit. He had 3 troponin levels, all of which were normal. He underwent a chemical stress tests, which showed an LVEF of 54%. There was an old inferior wall MD, unchanged in appearance from 07/14/12. There was no reversible defects. The patient was discharged with no change in his medication. He will take his daily aspirin when he gets home on the day of discharge. FINAL DIAGNOSES: 1. Atypical chest pain. 2. Coronary artery disease. 3. Obstructive sleep apnea. 4. Hypertension. 5. Morbid obesity. 6. History of cerebrovascular accident. DISCHARGE MEDICATIONS: 1. Aspirin 325 mg daily. 2. Calcium carbonate 500 mg p.r.n. 3. Atorvastatin 40 mg daily. 4. Nebivolol 5 mg daily. 5. Clopidogrel 75 mg daily. 6. Fluticasone/salmeterol 250/50 mcg 1 puff b.i.d. 7. Albuterol 2.5 mg by inhalation q.i.d. p.r.n. 8. Nitroglycerin 0.4 mg sublingual every 5 minutes p.r.n. 9. Albuterol inhaler 2 puffs 4 times a day p.r.n. [id number]/[facility] #: [id number]
[2016-09-23] MEDS ORDERED: Aspirin EC TAB* 325 MG PO SCH (09:00)
== END 2016-09-22 12:00 | disposition home or self-care (01) ==
LOC: ED 10:20 → MEDTELE 13:10
PROVIDERS: ADMIT Internal Medicine; ATTEND Internal Medicine
DX: R07.89 Other chest pain (principal); I25.10 Atherosclerotic heart disease of native coronary artery without angina pectoris; I10 Essential (primary) hypertension; G47.33 Obstructive sleep apnea (adult) (pediatric); E66.01 Morbid (severe) obesity due to excess calories; I25.2 Old myocardial infarction; J45.909 Unspecified asthma, uncomplicated; I49.3 Ventricular premature depolarization; R94.31 Abnormal electrocardiogram [ECG] [EKG]; Z86.73 Personal history of transient ischemic attack (TIA), and cerebral infarction without residual deficits; Z79.82 Long term (current) use of aspirin; Z79.899 Other long term (current) drug therapy; Z88.0 Allergy status to penicillin; Z88.8 Allergy status to other drugs, medicaments and biological substances; Z87.891 Personal history of nicotine dependence
CPT/HCPCS: 36415; 71010; 78452; 80048; 80053; 80061; 83036; 83605; 83735; 84484; 85025; 85379; 85610; 93005; 93017; 94640; 94760; 96372; 96374; 96375; 99284; A9270-GY; A9502; G0378; J1644; J2270; J2405; J2785

== ENCOUNTER 2016-10-30 09:38 | Emergency (ER) | payer MEDICARE, MEDICAID ==
[2016-10-30] MEDS ORDERED: Aspirin Low Dose CHEW TAB* 81 MG PO ONE (09:50)
[2016-10-30 10:14] LABS: Hematocrit 42 % (42-52); Hemoglobin 13.6 g/dl (14.0-18.0); Mean Corpuscular HGB Conc 32 g/dl (31-36); Mean Corpuscular Hemoglobin 27 pg (27-31); Mean Corpuscular Volume 85 fL (80-94); Mean Platelet Volume 8 um3 (7.4-10.4); Red Blood Count 5.02 10^6/ul (4.0-5.4); Red Cell Distribution Width 15 % (10.5-15); White Blood Count 5.2 10^3/ul (3.5-10.8)
[2016-10-30 10:31] LABS: Albumin 3.7 g/dL (3.2-5.2); BUN/Creatinine Ratio 12.4 (8-20); Calcium 9.1 mg/dL (8.6-10.3); EGFR African American 87.3 (>60); EGFR Non-African American 67.9 (>60); Globulin 2.8 g/dL (2-4); Potassium 3.6 mmol/L (3.5-5.0); Total Bilirubin 0.5 mg/dL (0.2-1.0); Total Protein 6.5 g/dL (6.4-8.9)
[2016-10-30 10:33] LABS: Troponin I 0.01 ng/mL (<0.04)
--- NOTE | 2016-10-30 11:08 | RAD ---
Indication: Chest pain. Single frontal view of the chest performed at 1038 hours was reviewed. Comparison is made with previous exam dated September 30, 2016. No mediastinal shift is noted. Heart is of normal size and configuration. Lung alves appear clear. IMPRESSION: NO ACTIVE CARDIOPULMONARY DISEASE IS NOTED.
[2016-10-30] MEDS ORDERED: Nitroglycerin TAB 0.4 MG* 0.4 MG TAB SL ONE (11:11)
[2016-10-30 11:12] LABS: T4 6.65 mcg/mL (6.09-12.23)
[2016-10-30 11:13] LABS: TSH (Thyroid Stimulating Horm) 2.27 mcIU/mL (0.34-5.60)
[2016-10-30] MEDS ORDERED: Ketorolac INJ* 30 MG/ML 1 ML VIAL IM ONE (13:58)
[2016-10-30 14:11] VITALS: BP 130/74
--- NOTE | 2016-10-30 18:56 | ED ---
Herrera Kim Thomas, scribed for Carlin Pardo MD on 10/30/16 at 1120 . HPI Chest Pain - HPI Summary HPI Summary: Pt is a 51 y/o male presenting to the ED c/o CP that began this morning when he woke up. The pain is located in the left anterior chest without radiation. Pt reports that pain is severe, ranked 9/10 in the room and moderately severe, 6/10 , at triage. The pain is intermittent and pt reports that it pauses and then starts" with the pain being characterized as sharp. Aggravated and alleviated by nothing. Additionally complains of palpitations, SOB, and diaphoresis. Denies N/V, fevers, chills, cough. - History of Current Complaint Chief Complaint: EDChestPainROMI Time Seen by Provider: 10/30/16 09:51 Hx Obtained From: Patient Onset/Duration: Started Hours Ago - this morning when he woke up, Still Present Timing: Intermittent, Lasting Hours Initial Severity: Severe Current Severity: Severe Pain Intensity: 6 Pain Scale Used: 0-10 Numeric Chest Pain Location: Left Anterior Chest Pain Radiates: No Character: Sharp/Stabbing Aggravating Factor(s): Nothing Alleviating Factor(s): Nothing Associated Signs and Symptoms: Positive: Shortness of Breath, Diaphoresis, Palpitations. Negative: Fever, Chills, Nausea, Cough, Vomiting - Additional Pertinent History Primary Care Physician: [id number] - Allergy/Home Medications Allergies/Adverse Reactions: Allergies Allergy/AdvReac Type Severity Reaction Status Date / Time Penicillins Allergy Severe Anaphylatic Verified 10/30/16 09:47 Shock Amoxicillin Allergy Unknown Swelling Verified 10/30/16 09:47 [From Augmentin XR] Clavulanic Acid Allergy Unknown Swelling Verified 10/30/16 09:47 [From Augmentin XR] VINEGAR Allergy Intermediate Hives Uncoded 10/30/16 09:47 MUSHROOMS Allergy Unknown Rash Uncoded 10/30/16 09:47 PMH/Surg Hx/FS Hx/Imm Hx Endocrine/Hematology History: Reports: Hx Anticoagulant Therapy - plavix Denies: Hx Diabetes, Hx Sickle Cell Disease, Hx Thyroid Disease Cardiovascular History: Reports: Hx Angina, Hx Coronary Artery Disease, Hx Hypercholesterolemia, Hx Hypertension, Hx Myocardial Infarction, Other Cardiovascular Problems/Disorders - HEART DISEASE, CARDIAC EVENT MONITOR IMPLANTED Denies: Hx Congestive Heart Failure, Hx Pacemaker/ICD, Hx Valvular Heart Disease Respiratory History: Reports: Hx Asthma, Hx Sleep Apnea Denies: Hx Chronic Obstructive Pulmonary Disease (COPD) GI History: Reports: Hx Gastroesophageal Reflux Disease Denies: Hx Ulcer History: Reports: Hx Renal Disease - cysts, Other Problems/Disorders - bilat cyst on kidneys Musculoskeletal History: Reports: Hx Arthritis, Hx Back Problems, Other Musculoskeletal History - RANDEE Denies: Hx Scoliosis Sensory History: Reports: Hx Cataracts - right eye, Hx Hearing Problem - LEFT EAR HEARING AID Denies: Hx Contacts or Glasses, Hx Hearing Aid Opthamlomology History: Reports: Hx Cataracts - right eye Denies: Hx Contacts or Glasses Neurological History: Reports: Hx Transient Ischemic Attacks (TIA) Denies: Hx Dementia, Hx Headaches, Hx Seizures, Other Neuro Impairments/ Disorders Psychiatric History: Reports: Hx Depression Denies: Hx Panic Disorder - Cancer History Hx Chemotherapy: No - Surgical History Surgery Procedure, Year, and Place: APR 2004 sinus [facility] ;. 2007 left knee arthroscopy [facility] ;. 2012 left tympanoplasty WITH STAPES IMPLANT (L2C MALLEOUS HEAD SERIAL # [id number] - PER L2C INFORMATION SENT TO MRI ON ; IMPLANT IS STAINLESS STEEL STATES SOME DEGREE OF MAGNETISM TESTED MRI SAFE AT 1.5T ONLY - DR ANAYA APPROVED THIS INFORMATION FOR 1.5T ONLY). [facility] [place] ;. 2014 LEFT REVISION TYMPANOPLASTY/ MASTOIDECTOMY [facility] ;. 2011 HEART CATH - NO STENTS ;. 2010 HEART CATH WITH cardiac stents x 4 (PROMUS DRUG-ELUTING STENT OKAY IN NORMAL MODE ONLY, MAX 720 GAUSS/CM @ 1.5T) [facility] ; Hx Anesthesia Reactions: Yes - SEIZURE LIKE ACTIVITY; REINTUBATION AFTER LEFT EAR 2012 - Immunization History Date of Tetanus Vaccine: unknown Date of Influenza Vaccine: Fall 2011 Infectious Disease History: No Infectious Disease History: Denies: Hx Clostridium Difficile, Hx Hepatitis, Hx Human Immunodeficiency Virus (HIV), Hx of Known/Suspected MRSA, Hx Shingles, Hx Tuberculosis, Hx Known/ Suspected VRE, Hx Known/Suspected VRSA, History Other Infectious Disease, Traveled Outside the [place] in Last 30 Days - Family History Known Family History: Positive: Cardiac Disease, Hypertension, Diabetes - Social History Alcohol Use: None Hx Substance Use: No Substance Use Type: Reports: None Hx Tobacco Use: Yes Smoking Status (MU): Former Smoker Type: Cigarettes Length of Time of Smoking/Using Tobacco: 10-12 YRS Have You Smoked in the Last Year: No Review of Systems Positive: Skin Diaphoresis. Negative: Fever, Chills Positive: Palpitations, Chest Pain Positive: Shortness Of Breath. Negative: Cough Negative: Vomiting, Nausea All Other Systems Reviewed And Are Negative: Yes Physical Exam - Summary Physical Exam Summary: VITAL SIGNS: Reviewed. GENERAL: Patient is an obese male who is lying comfortably in the stretcher. NAD. HEAD AND FACE: No signs of trauma. No ecchymosis, hematomas or skull depressions. No sinus tenderness. EYES: PERRLA, EOMI x 2, No injected conjunctiva, no nystagmus. EARS: Hearing grossly intact. Ear canals and tympanic membranes are within normal limits. MOUTH: Oropharynx within normal limits. NECK: Supple, trachea is midline, no adenopathy, no JVD, no carotid bruit, no c- spine tenderness, neck with full ROM. CHEST: Symmetric, no tenderness at palpation LUNGS: Clear to auscultation bilaterally. No wheezing or crackles. CVS: Regular rate and rhythm, S1 and S2 present, no murmurs or gallops appreciated. ABDOMEN: Soft, non-tender. No signs of distention. No rebound no guarding, and no masses palpated. Bowel sounds are normal. EXTREMITIES: FROM in all major joints, no edema, no cyanosis or clubbing. NEURO: Alert and oriented x 3. No acute neurological deficits. Speech is normal and follows commands. SKIN: Dry and warm Triage Information Reviewed: Yes Vital Signs On Initial Exam: Initial Vitals Temp Pulse Resp BP Pulse Ox 97.3 F 73 20 136/85 96 10/30/16 09:40 10/30/16 09:40 10/30/16 09:40 10/30/16 09:40 10/30/16 09:40 Vital Signs Reviewed: Yes - [place] Coma Scale Coma Scale Total: 15 Diagnostics - Vital Signs Vital Signs Temp Pulse Resp BP Pulse Ox 10/30/16 11:00 60 17 96 10/30/16 10:00 65 17 97 10/30/16 09:53 96 10/30/16 09:45 74 16 95 10/30/16 09:44 97.3 F 69 18 136/85 96 10/30/16 09:40 97.3 F 73 20 136/85 96 - Laboratory Lab Results: Lab Results 10/30/16 10/30/16 10/30/16 Range/Units 09:57 09:57 09:57 WBC 5.2 (3.5-10.8) 10^3/ul RBC 5.02 (4.0-5.4) 10^6/ul Hgb 13.6 L (14.0-18.0) g/dl Hct 42 (42-52) % MCV 85 (80-94) fL MCH 27 (27-31) pg MCHC 32 (31-36) g/dl RDW 15 (10.5-15) % Plt Count 179 (150-450) 10^3/ul MPV 8 (7.4-10.4) um3 Neut % (Auto) 56.9 (38-83) % Lymph % (Auto) 29.3 (25-47) % Elk % (Auto) 9.2 H (1-9) % Eos % (Auto) 3.8 (0-6) % Baso % (Auto) 0.8 (0-2) % Absolute Neuts (auto) 3.0 (1.5-7.7) 10^3/ul Absolute Lymphs (auto) 1.5 (1.0-4.8) 10^3/ul Absolute Monos (auto) 0.5 (0-0.8) 10^3/ul Absolute Eos (auto) 0.2 (0-0.6) 10^3/ul Absolute Basos (auto) 0 (0-0.2) 10^3/ul Absolute Nucleated RBC 0 10^3/ul Nucleated RBC % 0.1 Sodium 139 (133-145) mmol/L Potassium 3.6 (3.5-5.0) mmol/L Chloride 107 (101-111) mmol/L Carbon Dioxide 27 (22-32) mmol/L Anion Gap 5 (2-11) mmol/L BUN 14 (6-24) mg/dL Creatinine 1.13 (0.67-1.17) mg/dL Est GFR ( Amer) 87.3 (>60) Est GFR (Non-Af Amer) 67.9 (>60) BUN/Creatinine Ratio 12.4 (8-20) Glucose 141 H (70-100) mg/dL Lactic Acid 1.5 (0.5-2.0) mmol/L Calcium 9.1 (8.6-10.3) mg/dL Magnesium 2.0 (1.9-2.7) mg/dL Total Bilirubin 0.50 (0.2-1.0) mg/dL AST 22 (13-39) U/L ALT 35 (7-52) U/L Alkaline Phosphatase 99 (34-104) U/L Total Creatine Kinase 179 (10-223) U/L CK-MB (CK-2) 1.8 (0.6-6.3) ng/mL Troponin I 0.01 (<0.04) ng/mL B-Natriuretic Peptide ( - 100) pg/mL Total Protein 6.5 (6.4-8.9) g/dL Albumin 3.7 (3.2-5.2) g/dL Globulin 2.8 (2-4) g/dL Albumin/Globulin Ratio 1.3 (1-3) TSH Pending Thyroxine (T4) 6.65 (6.09-12.23) mcg/mL 10/30/16 Range/Units 09:57 WBC (3.5-10.8) 10^3/ul RBC (4.0-5.4) 10^6/ul Hgb (14.0-18.0) g/dl Hct (42-52) % MCV (80-94) fL MCH (27-31) pg MCHC (31-36) g/dl RDW (10.5-15) % Plt Count (150-450) 10^3/ul MPV (7.4-10.4) um3 Neut % (Auto) (38-83) % Lymph % (Auto) (25-47) % Elk % (Auto) (1-9) % Eos % (Auto) (0-6) % Baso % (Auto) (0-2) % Absolute Neuts (auto) (1.5-7.7) 10^3/ul Absolute Lymphs (auto) (1.0-4.8) 10^3/ul Absolute Monos (auto) (0-0.8) 10^3/ul Absolute Eos (auto) (0-0.6) 10^3/ul Absolute Basos (auto) (0-0.2) 10^3/ul Absolute Nucleated RBC 10^3/ul Nucleated RBC % Sodium (133-145) mmol/L Potassium (3.5-5.0) mmol/L Chloride (101-111) mmol/L Carbon Dioxide (22-32) mmol/L Anion Gap (2-11) mmol/L BUN (6-24) mg/dL Creatinine (0.67-1.17) mg/dL Est GFR ( Amer) (>60) Est GFR (Non-Af Amer) (>60) BUN/Creatinine Ratio (8-20) Glucose (70-100) mg/dL Lactic Acid (0.5-2.0) mmol/L Calcium (8.6-10.3) mg/dL Magnesium (1.9-2.7) mg/dL Total Bilirubin (0.2-1.0) mg/dL AST (13-39) U/L ALT (7-52) U/L Alkaline Phosphatase (34-104) U/L Total Creatine Kinase (10-223) U/L CK-MB (CK-2) (0.6-6.3) ng/mL Troponin I (<0.04) ng/mL B-Natriuretic Peptide 18 ( - 100) pg/mL Total Protein (6.4-8.9) g/dL Albumin (3.2-5.2) g/dL Globulin (2-4) g/dL Albumin/Globulin Ratio (1-3) TSH Thyroxine (T4) (6.09-12.23) mcg/mL Result Diagrams: 10/30/16 09:57 10/30/16 09:57 Lab Statement: Any lab studies that have been ordered have been reviewed, and results considered in the medical decision making process. - Radiology CXR Xray Interpretation: No Acute Changes - NO ACTIVE CARDIOPULMONARY DISEASE IS NOTED. 10:38. Radiology Interpretation Completed By: Radiologist - EKG 09:43 Cardiac Rate: NL - 60 bpm EKG Rhythm: Sinus Rhythm EKG Interpretation: No ST elevation. T-wave inversions on V5, V6, and aVL. EKG Comparison: No Significant Change Chest Pain Course/Dx - Course Course Of Treatment: Pt is a 51 y/o male presenting to the ED c/o CP that began this morning when he woke up. The pain is located in the left anterior chest without radiation. Pt reports that pain is severe, ranked 9/10 in the room and moderately severe, 6/10, at triage. The pain is intermittent and pt reports that it pauses and then starts" with the pain being characterized as sharp. Aggravated and alleviated by nothing. Additionally complains of palpitations, SOB, and diaphoresis. Denies N/V, fevers, chills, cough. Test results were within normal limits. The troponin #1 was 0.01. Four hours later, the troponin # 2 was 0.01. He was given NTG with no symptom improvement. He was given Toradol and symtoms were resolved. At this point, patient is asymptomatic. There is low suspicion for ACS becuase the troponin is negative and the chest pain resolved with Toradol. There is no suspicion of pulmonary embolism because the patient is not tachycardic and not hypoxic. The patient was discharged home to follow up with primary care provider. He was recommended to return if he developes any other chest pain, SOB, N/V. He understands and agrees. He is hemodynamically stable and A&Ox3. - Chest Pain Differential Diagnosis/HQI/PQRI: Acute ID, ACS, Angina, CHF, Chest Wall, GI Disease, Lower Respiratory Infection - Diagnoses Provider Diagnoses: Chest pain Discharge - Discharge Plan Condition: Stable Disposition: HOME Patient Education Materials: Chest Pain (ED) Referrals: Carlin Chu MD [Primary Care Provider] - 3 Days The documentation as recorded by the eHrrera brown Thomas accurately reflects the service I personally performed and the decisions made by , Carlin Pardo MD.
== END 2016-10-30 14:14 | disposition home or self-care (01) ==
LOC: ED 09:38
DX: R07.9 Chest pain, unspecified (principal); R06.02 Shortness of breath; R00.2 Palpitations; Z87.891 Personal history of nicotine dependence
CPT/HCPCS: 36415; 71010; 80053; 82550; 82553; 83605; 83735; 83880; 84436; 84443; 84484; 85025; 93005; 96372; 99283; A9270-GY; J1885

== ENCOUNTER 2016-11-21 08:36 | Emergency (ER) | payer MEDICARE, MEDICAID ==
[2016-11-21] MEDS ORDERED: Ondansetron INJ* 2 MG/ML VIAL IV ONE (10:36)
[2016-11-21] MEDS ORDERED: Ketorolac INJ* 30 MG/ML 1 ML VIAL IV ONE (10:36)
[2016-11-21] MEDS: NS 0.9% 1000 ML* 2,000 ML IV ONE (11:04)
[2016-11-21 11:32] LABS: Hematocrit 45 % (42-52); Hemoglobin 14.7 g/dl (14.0-18.0); Mean Corpuscular HGB Conc 33 g/dl (31-36); Mean Corpuscular Hemoglobin 28 pg (27-31); Mean Corpuscular Volume 85 fL (80-94); Mean Platelet Volume 8 um3 (7.4-10.4); Red Cell Distribution Width 15 % (10.5-15); White Blood Count 4.8 10^3/ul (3.5-10.8)
[2016-11-21 11:54] LABS: Albumin 3.8 g/dL (3.2-5.2); BUN/Creatinine Ratio 10.7 (8-20); C Reactive Protein 8.04 mg/L (< 5.00); Calcium 9.3 mg/dL (8.6-10.3); EGFR African American 79.9 (>60); EGFR Non-African American 62.1 (>60); Globulin 3.2 g/dL (2-4); Potassium 4.1 mmol/L (3.5-5.0)
[2016-11-21] MEDS ORDERED: Iohexol 300* (CONTRAST) 10 ML SDV IV ONE (12:10)
[2016-11-21 12:15] LABS: Total Bilirubin 0.5 mg/dL (0.2-1.0)
[2016-11-21 12:18] LABS: Urine Bacteria Absent (Absent); Urine Bilirubin Negative (Negative); Urine Glucose Negative (Negative); Urine Nitrite Negative (Negative)
--- NOTE | 2016-11-21 13:39 | RAD ---
CLINICAL HISTORY: Left lower quadrant pain, left flank pain COMPARISON: July 08, 2016 TECHNIQUE: Multiple contiguous axial CT scans were obtained of the abdomen and pelvis after the administration of intravenous contrast. Coronal and sagittal multiplanar reformations are submitted for review. Oral contrast was administered. Delayed images were obtained through the abdomen and pelvis. FINDINGS: LUNG BASES: The lung bases are clear. LIVER: The liver is enlarged measuring 20 cm in long axis. The liver is diffusely low in attenuation. BILE DUCTS: There is no intrahepatic or extrahepatic biliary dilatation. GALLBLADDER: The gallbladder is normal, without pericholecystic inflammatory change. PANCREAS: The pancreas is normal, without mass or ductal dilatation. SPLEEN: Normal in size and appearance. UPPER GI TRACT: Evaluation of the gastrointestinal tract is limited by incomplete gastric distention. The upper GI tract is unremarkable. SMALL BOWEL AND MESENTERY: The small bowel is normal in contour, course, and caliber. There is no obstruction or dilatation. COLON: The colon is normal in contour, course, caliber. There is no pericolonic inflammatory change. ADRENALS: Normal bilaterally. KIDNEYS: Bilateral renal cysts are noted. BLADDER: The bladder is smooth in contour. PELVIC ORGANS: The prostate gland is normal. The seminal vesicles are symmetric. AORTA: The aorta is normal. IVC: Unremarkable LYMPH NODES: There is no lymphadenopathy by size criteria. ABDOMINAL WALL: There is no evidence for abdominal wall hernia. BONES AND SOFT TISSUES: There are mild diffuse degenerative changes. OTHER: None IMPRESSION: 1. HEPATOMEGALY WITH FATTY INFILTRATION OF LIVER. 2. NO ACUTE CT PATHOLOGY OF THE VISUALIZED ABDOMEN OR PELVIS
[2016-11-21] MEDS ORDERED: Morphine INJ* 4 MG/ML 1 ML SYRINGE IV ONE (14:39)
--- NOTE | 2016-11-21 15:49 | RAD ---
HISTORY: Left testicular and inguinal pain COMPARISONS: May 01, 2013 TECHNIQUE: Multiple transverse and longitudinal ultrasound images were obtained of the scrotum, using grayscale, color Doppler, and spectral Doppler imaging. FINDINGS: RIGHT: RIGHT TESTICLE: The right testicle measures 3.7 x 2.4 x 2.9 cm. The right testicle is homogeneous in echotexture, without testicular parenchymal mass. A hyperechoic area is felt to represent the rete testis.. Normal arterial and venous waveforms are identified within the right testicle on spectral Doppler imaging. RIGHT EPIDIDYMIS: The right epididymis measures 1.3 cm at the head. An appendix epididymis is noted. RIGHT SCROTUM: There is large right hydrocele with minimal echogenic debris. LEFT: LEFT TESTICLE: The left testicle measures 3.5 x 2.2 x 2.7 cm. The left testicle is homogeneous in echotexture, without testicular parenchymal mass. Normal arterial and venous waveforms are identified within the left testicle on spectral Doppler imaging. LEFT EPIDIDYMIS: The left epididymis measures 1.8 cm at the head. An appendix epididymis is noted. LEFT SCROTUM: There is large left hydrocele with internal echogenic debris. OTHER: Directed images of the left inguinal region in the area of pain demonstrate no sonographic abnormality. IMPRESSION: 1. NO SONOGRAPHIC FEATURES OF TORSION. PLEASE NOTE THAT PARTIAL OR INTERMITTENT TORSION MAY BE SONOGRAPHICALLY NORMAL. 2. NO TESTICULAR PARENCHYMAL MASS. 3. LARGE BILATERAL HYDROCELES. 4. NO SONOGRAPHIC ABNORMALITY IN THE AREA OF PAIN OF THE LEFT INGUINAL REGION.
--- NOTE | 2016-11-21 16:47 | ED ---
Nila Kim Alfonso, scribed for Jeffery John MD on 11/21/16 at 1022 . Abdominal Pain/Male - HPI Summary HPI Summary: This patient is a 51 year old male presenting to [facility] c/o sharp left-sided flank pain since yesterday. The pain has become worse and is now in his back and groin. He reports experiencing a similar pain in the past. Last BM this morning. He rates the pain 8/10 in severity. Sx aggravated and alleviated by nothing. He denies testicular pain, urinary symptoms, fever, chills and melena. No abdominal PSHx reported. - History of Current Complaint Chief Complaint: EDFlankPain Stated Complaint: LT SIDE FLANK PAIN Time Seen by Provider: 11/21/16 10:14 Hx Obtained From: Patient Onset/Duration: Sudden Onset, Lasting Days - Yesterday, Worse Since Timing: Constant Severity Initially: Severe Severity Currently: Severe Pain Intensity: 8 Pain Scale Used: 0-10 Numeric Location: Flank - Left Radiates: Yes Radiates to: Back, Other - Groin Character: Sharp Aggravating Factor(s): Nothing Alleviating Factor(s): Nothing Associated Signs And Symptoms: Positive: Other - Negative testicular pain, urinary symptoms, fever, chills and melena. - Allergies/Home Medications Allergies/Adverse Reactions: Allergies Allergy/AdvReac Type Severity Reaction Status Date / Time Penicillins Allergy Severe Anaphylatic Verified 11/21/16 08:45 Shock Amoxicillin Allergy Unknown Swelling Verified 11/21/16 08:45 [From Augmentin XR] Clavulanic Acid Allergy Unknown Swelling Verified 11/21/16 08:45 [From Augmentin XR] VINEGAR Allergy Intermediate Hives Uncoded 11/21/16 08:45 MUSHROOMS Allergy Unknown Rash Uncoded 11/21/16 08:45 PMH/Surg Hx/FS Hx/Imm Hx Endocrine/Hematology History: Reports: Hx Anticoagulant Therapy - plavix Denies: Hx Diabetes, Hx Sickle Cell Disease, Hx Thyroid Disease Cardiovascular History: Reports: Hx Angina, Hx Coronary Artery Disease, Hx Hypercholesterolemia, Hx Hypertension, Hx Myocardial Infarction, Other Cardiovascular Problems/Disorders - HEART DISEASE, CARDIAC EVENT MONITOR IMPLANTED Denies: Hx Congestive Heart Failure, Hx Pacemaker/ICD, Hx Valvular Heart Disease Respiratory History: Reports: Hx Asthma, Hx Sleep Apnea Denies: Hx Chronic Obstructive Pulmonary Disease (COPD) GI History: Reports: Hx Gastroesophageal Reflux Disease Denies: Hx Ulcer History: Reports: Hx Renal Disease - cysts, Other Problems/Disorders - bilat cyst on kidneys Musculoskeletal History: Reports: Hx Arthritis, Hx Back Problems, Other Musculoskeletal History - RANDEE Denies: Hx Scoliosis Sensory History: Reports: Hx Cataracts - right eye, Hx Hearing Problem - LEFT EAR HEARING AID Denies: Hx Contacts or Glasses, Hx Hearing Aid Opthamlomology History: Reports: Hx Cataracts - right eye Denies: Hx Contacts or Glasses Neurological History: Reports: Hx Transient Ischemic Attacks (TIA) Denies: Hx Dementia, Hx Headaches, Hx Seizures, Other Neuro Impairments/ Disorders Psychiatric History: Reports: Hx Depression Denies: Hx Panic Disorder - Cancer History Hx Chemotherapy: No - Surgical History Surgery Procedure, Year, and Place: APR 2004 sinus [facility] ;. 2007 left knee arthroscopy [facility] ;. 2012 left tympanoplasty WITH STAPES IMPLANT ([facility] MALLEOUS HEAD SERIAL # [id number] - PER [facility] INFORMATION SENT TO MRI ON ; IMPLANT IS STAINLESS STEEL STATES SOME DEGREE OF MAGNETISM TESTED MRI SAFE AT 1.5T ONLY - DR ANAYA APPROVED THIS INFORMATION FOR 1.5T ONLY). [facility] ;. 2014 LEFT REVISION TYMPANOPLASTY/ MASTOIDECTOMY [facility] ;. 2011 HEART CATH - NO STENTS ;. 2010 HEART CATH WITH cardiac stents x 4 (PROMUS DRUG-ELUTING STENT OKAY IN NORMAL MODE ONLY, MAX 720 GAUSS/CM @ 1.5T) [facility] ; Hx Anesthesia Reactions: Yes - SEIZURE LIKE ACTIVITY; REINTUBATION AFTER LEFT EAR 2012 - Immunization History Date of Tetanus Vaccine: unknown Date of Influenza Vaccine: Fall 2011 Infectious Disease History: No Infectious Disease History: Denies: Hx Clostridium Difficile, Hx Hepatitis, Hx Human Immunodeficiency Virus (HIV), Hx of Known/Suspected MRSA, Hx Shingles, Hx Tuberculosis, Hx Known/ Suspected VRE, Hx Known/Suspected VRSA, History Other Infectious Disease, Traveled Outside the [place] in Last 30 Days - Family History Known Family History: Positive: Cardiac Disease, Hypertension, Diabetes - Social History Alcohol Use: None Hx Substance Use: No Substance Use Type: Reports: None Hx Tobacco Use: Yes Smoking Status (MU): Former Smoker Type: Cigarettes Length of Time of Smoking/Using Tobacco: 10-12 YRS Have You Smoked in the Last Year: No Review of Systems Negative: Fever, Chills Positive: Other - Negative melena Positive: flank pain - sharp left-sided flank pain that is now also in his back and groin., other - Negative testicular pain, urinary symptoms All Other Systems Reviewed And Are Negative: Yes Physical Exam Triage Information Reviewed: Yes Vital Signs On Initial Exam: Initial Vitals Temp Pulse Resp BP Pulse Ox 97.1 F 61 18 148/96 98 11/21/16 08:40 11/21/16 08:40 11/21/16 08:40 11/21/16 08:40 11/21/16 08:40 Vital Signs Reviewed: Yes Appearance: Positive: Well-Appearing, Pain Distress - Moderate Skin: Positive: Warm, Skin Color Reflects Adequate Perfusion, Dry Head/Face: Positive: Normal Head/Face Inspection Eyes: Positive: EOMI, SOLO ENT: Positive: Normal ENT inspection Neck: Positive: Supple, Nontender Respiratory/Lung Sounds: Positive: Clear to Auscultation, Breath Sounds Present Cardiovascular: Positive: RRR Abdomen Description: Positive: Soft, Other: - Tender LLQ and left inguinal area Bowel Sounds: Positive: Present Musculoskeletal: Positive: Normal, Strength/ROM Intact Neurological: Positive: Normal, Sensory/Motor Intact, Alert, Oriented to Person Place, Time Psychiatric: Positive: Affect/Mood Appropriate - Sayra Coma Scale Coma Scale Total: 15 Diagnostics - Vital Signs Vital Signs Temp Pulse Resp BP Pulse Ox 11/21/16 10:00 63 13 98 11/21/16 09:58 64 148/85 98 11/21/16 08:40 97.1 F 61 18 148/96 98 - Laboratory Lab Results: Lab Results 11/21/16 11/21/16 11/21/16 Range/Units 11:10 11:10 11:10 WBC 4.8 (3.5-10.8) 10^3/ul RBC 5.30 (4.0-5.4) 10^6/ul Hgb 14.7 (14.0-18.0) g/dl Hct 45 (42-52) % MCV 85 (80-94) fL MCH 28 (27-31) pg MCHC 33 (31-36) g/dl RDW 15 (10.5-15) % Plt Count 179 (150-450) 10^3/ul MPV 8 (7.4-10.4) um3 Neut % (Auto) 59.6 (38-83) % Lymph % (Auto) 27.9 (25-47) % [place] % (Auto) 8.2 (1-9) % Eos % (Auto) 3.7 (0-6) % Baso % (Auto) 0.6 (0-2) % Absolute Neuts (auto) 2.9 (1.5-7.7) 10^3/ul Absolute Lymphs (auto) 1.3 (1.0-4.8) 10^3/ul Absolute Monos (auto) 0.4 (0-0.8) 10^3/ul Absolute Eos (auto) 0.2 (0-0.6) 10^3/ul Absolute Basos (auto) 0 (0-0.2) 10^3/ul Absolute Nucleated RBC 0.01 10^3/ul Nucleated RBC % 0.1 INR (Anticoag Therapy) 0.95 (0.89-1.11) APTT 37.2 H (26.0-36.3) seconds Sodium 138 (133-145) mmol/L Potassium 4.1 (3.5-5.0) mmol/L Chloride 105 (101-111) mmol/L Carbon Dioxide 27 (22-32) mmol/L Anion Gap 6 (2-11) mmol/L BUN 13 (6-24) mg/dL Creatinine 1.22 H (0.67-1.17) mg/dL Est GFR ( Amer) 79.9 (>60) Est GFR (Non-Af Amer) 62.1 (>60) BUN/Creatinine Ratio 10.7 (8-20) Glucose 97 (70-100) mg/dL Lactic Acid (0.5-2.0) mmol/L Calcium 9.3 (8.6-10.3) mg/dL Total Bilirubin 0.50 (0.2-1.0) mg/dL AST 19 (13-39) U/L ALT 26 (7-52) U/L Alkaline Phosphatase 108 H (34-104) U/L C-Reactive Protein 8.04 H (< 5.00) mg/L Total Protein 7.0 (6.4-8.9) g/dL Albumin 3.8 (3.2-5.2) g/dL Globulin 3.2 (2-4) g/dL Albumin/Globulin Ratio 1.2 (1-3) Lipase 23 (11.0-82.0) U/L Urine Color Urine Appearance Urine pH (5-9) Ur Specific [place] (1.010-1.030) Urine Protein (Negative) Urine Ketones (Negative) Urine Blood (Negative) Urine Nitrate (Negative) Urine Bilirubin (Negative) Urine Urobilinogen (Negative) Ur Leukocyte Esterase (Negative) Urine WBC (Auto) (Absent) Urine RBC (Auto) (Absent) Urine Bacteria (Absent) Urine Glucose (Negative) 11/21/16 11/21/16 Range/Units 11:10 11:55 WBC (3.5-10.8) 10^3/ul RBC (4.0-5.4) 10^6/ul Hgb (14.0-18.0) g/dl Hct (42-52) % MCV (80-94) fL MCH (27-31) pg MCHC (31-36) g/dl RDW (10.5-15) % Plt Count (150-450) 10^3/ul MPV (7.4-10.4) um3 Neut % (Auto) (38-83) % Lymph % (Auto) (25-47) % Gentry % (Auto) (1-9) % Eos % (Auto) (0-6) % Baso % (Auto) (0-2) % Absolute Neuts (auto) (1.5-7.7) 10^3/ul Absolute Lymphs (auto) (1.0-4.8) 10^3/ul Absolute Monos (auto) (0-0.8) 10^3/ul Absolute Eos (auto) (0-0.6) 10^3/ul Absolute Basos (auto) (0-0.2) 10^3/ul Absolute Nucleated RBC 10^3/ul Nucleated RBC % INR (Anticoag Therapy) (0.89-1.11) APTT (26.0-36.3) seconds Sodium (133-145) mmol/L Potassium (3.5-5.0) mmol/L Chloride (101-111) mmol/L Carbon Dioxide (22-32) mmol/L Anion Gap (2-11) mmol/L BUN (6-24) mg/dL Creatinine (0.67-1.17) mg/dL Est GFR ( Amer) (>60) Est GFR (Non-Af Amer) (>60) BUN/Creatinine Ratio (8-20) Glucose (70-100) mg/dL Lactic Acid 1.2 (0.5-2.0) mmol/L Calcium (8.6-10.3) mg/dL Total Bilirubin (0.2-1.0) mg/dL AST (13-39) U/L ALT (7-52) U/L Alkaline Phosphatase (34-104) U/L C-Reactive Protein (< 5.00) mg/L Total Protein (6.4-8.9) g/dL Albumin (3.2-5.2) g/dL Globulin (2-4) g/dL Albumin/Globulin Ratio (1-3) Lipase (11.0-82.0) U/L Urine Color Yellow Urine Appearance Clear Urine pH 5.0 (5-9) Ur Specific [place] 1.016 (1.010-1.030) Urine Protein Negative (Negative) Urine Ketones Negative (Negative) Urine Blood 1+ H (Negative) Urine Nitrate Negative (Negative) Urine Bilirubin Negative (Negative) Urine Urobilinogen Negative (Negative) Ur Leukocyte Esterase Negative (Negative) Urine WBC (Auto) Trace(0-5/hpf) (Absent) Urine RBC (Auto) 1+(3-5/hpf) H (Absent) Urine Bacteria Absent (Absent) Urine Glucose Negative (Negative) Result Diagrams: 11/21/16 11:10 11/21/16 11:10 Lab Statement: Any lab studies that have been ordered have been reviewed, and results considered in the medical decision making process. - CT CT A/P CT Interpretation Completed By: Radiologist - 1. HEPATOMEGALY WITH FATTY INFILTRATION OF LIVER. 2. NO ACUTE CT PATHOLOGY OF THE VISUALIZED ABDOMEN OR PELVIS - Additional Comments Diagnostic Additional Comments: Testicular US : 1. NO SONOGRAPHIC FEATURES OF TORSION. PLEASE NOTE THAT PARTIAL OR INTERMITTENT TORSION MAY BE SONOGRAPHICALLY NORMAL. 2. NO TESTICULAR PARENCHYMAL MASS. 3. LARGE BILATERAL HYDROCELES. 4. NO SONOGRAPHIC ABNORMALITY IN THE AREA OF PAIN OF THE LEFT INGUINAL REGION. Abdominal Pain Fem Course/Dx - Course Course Of Treatment: NO CRITICAL CARE TIME. DISCUSSED RESULTS WITH PATIENT. PAIN REMAINS AFTER PAIN MEDICATION IN ED. ADMIT HOSPITALIST STABLE. - Diagnoses Provider Diagnoses: Intractable abdominal pain - Provider Notifications Discussed Care Of Patient With: Nimisha Bates Time Discussed With Above Provider: 16:20 Instructed by Provider To: Other - Consulted Dr. Bates (Hospitalist) who agrees to admit. Discharge - Discharge Plan Condition: Stable Disposition: ADMITTED TO [facility] Referrals: Carlin Chu MD [Primary Care Provider] - The documentation as recorded by the Nila brown Alfonso accurately reflects the service I personally performed and the decisions made by me, Jeffery John MD.
[2016-11-21] MEDS ORDERED: oxyCODONE TAB* 5 MG TAB PO ONE (16:48)
--- NOTE | 2016-11-21 17:43 | RAD ---
Indication: Flank pain, pneumonia. Single frontal view of the chest performed at 1652 hours was reviewed. Comparison is made with previous exam dated October 30, 2016. No mediastinal shift is noted. Cardiomegaly is noted. No pleural fluid, pneumonia or pneumothorax is noted. IMPRESSION: NO ACTIVE CARDIOPULMONARY DISEASE IS NOTED. CARDIOMEGALY.
--- NOTE | 2016-11-21 18:25 | RAD ---
Indication: Left flank pain. Real-time sonography of the left kidney was performed. The left kidney measures 10.9 x 5.2 x 5.3 cm. A cyst is noted in the upper pole of left kidney measuring 5.0 x 4.4 x 6.5 cm. Additional cyst is noted measuring 1.5 x 1.2 x 1.6 cm. No hydronephrosis is noted. IMPRESSION: Left renal cyst. No hydronephrosis is noted.
[2016-11-21 19:03] VITALS: BP 125/69
--- NOTE | 2016-11-21 23:20 | CONS ---
CC: Dr. Chu; Dr. Alcaraz * CONSULTATION REPORT: DATE OF CONSULTATION: 11/21/16 - EMERGENCY DEPT PRIMARY CARE PROVIDER: Dr. Chu. CHIEF COMPLAINT: Left flank pain for 3 days. HISTORY OF PRESENT ILLNESS: Cas Glaser is a 51-year-old morbidly obese male with history of coronary artery disease, who presented to the hospital complaining of left flank pain for the past 3 days. He has no other associated factors. He stated that his appetite had been fine. He denies nausea, vomiting. He denies constipation. He denies urinary symptoms. The pain is localized at the left lung radiating to the front of his left abdomen and to his groin. He did have evaluation with Dr. Villarreal earlier on this year for microscopic hematuria, which was nonconclusive. At that point, he was noted to have small renal cysts and no nephrolithiasis. Here, he had a CT of the abdomen obtained, which was unremarkable. His C-reactive protein is not markedly elevated, but noted at 8. He has no leukocytosis. He denies any fevers. He stated that the pain gets worse when he lies down and when he moves to a sitting position. It is better when he is walking. Consultation was requested for the intractable pain by the ED physician, Dr. John. PAST MEDICAL HISTORY: 1. History of frequent evaluations for chest pains in the past. Most recent evaluation was noted to be an overnight hospitalization in September 2016 when at that point, cardiac stress test was performed and noted an area of known infarct. There were no new changes noted. 2. History of coronary artery disease status post stenting in the past, under the care of Dr. Alcaraz. 3. History of morbid obesity with a BMI of 47. 4. Obstructive sleep apnea, on CPAP. 5. History of palpitations with Holter, noted to have frequent PVCs in 2016. 6. Dyslipidemia. 7. Asthma. 8. History of peripheral venous insufficiency. 9. History of chronic osteoarthritis and pain in the left leg. 10. Hypertension. 11. History of an episode of 7 beats of V-tach during Holter monitoring in May 2015. 12. Status post knee arthroplasty. 13. History of inner ear surgery and sinus surgery. MEDICATIONS AT HOME: Include: 1. Nitroglycerin on a p.r.n. basis. 2. Bystolic 5 mg daily. 3. Advair Diskus 1 puff inhalation b.i.d. 4. Plavix 75 mg daily. 5. TUMS on a p.r.n. basis. 6. Lipitor 40 mg daily. 7. Aspirin 325 mg daily. 8. Albuterol inhaler on a p.r.n. basis. 9. Nebulizers with albuterol on a p.r.n. basis. ALLERGIES: Include PENICILLIN, AMOXICILLIN, CLAVULANIC ACID, VINEGAR, and MUSHROOMS. FAMILY HISTORY: Positive for a brother, who of sudden cardiac at the age of 53. Mother with history of heart and kidney disease. SOCIAL HISTORY: The patient is single, lives alone. His surrogate decision maker is his sister, Valarie Huff. The patient has a history of one pack per day smoking for 10 years including 1995. He denies any alcohol use. He is independent with his activities of daily living. REVIEW OF SYSTEMS: Please see history of present illness. In addition to the above mentioned, the patient stated that he had been trying to lose weight and doing fine with that. He lost approximately 8 pounds in the past month. He has history of chronic bilateral lower extremity edema. He stated that due to his coronary artery disease, he is not supposed to lift too heavy things. He had been ambulating without chest pain or shortness of breath apart from the recent evaluation in September 2016. All the remaining 14 systems were reviewed with the patient and were otherwise negative. PHYSICAL EXAMINATION: Blood pressure of 129/87, heart rate of 58 and regular, respiratory rate 16, oxygen saturation 97% on room air, temperature of 97.1. General: The patient is a pleasant 51-year-old male with a BMI of 47. The patient is in no acute distress. Alert, awake and oriented x3. HEENT: Head atraumatic, normocephalic. Eyes: Pupils are equal, reactive to light and accommodation. Oropharynx clear. Mucosa moist. Neck: Supple. No JVD, no bruits bilaterally. Respiratory: Clear to auscultation bilaterally. Cardiovascular: Regular rate and rhythm. No murmur. Abdomen: Soft, nontender. Bowel sounds present in all 4 quadrants. Back: On evaluation of the patient's back, the patient has point tenderness in the area of the mid left lung. The area is approximately 5 cm in diameter. He is actually very superficially tender in the area. There is no evidence of shingles on skin evaluation. On palpation of the thoracic and lumbar spine, there is no tenderness on palpation of the vertebral bodies. Skin: On evaluation of the patient's skin, patient has multiple scars from what appears to be excoriations about the lower extremities. There are no rashes or active infections noted. On neuro evaluation, the patient is clear. Cranial nerves II through XII are grossly intact. Motor strength is 5/5 bilaterally. Extremities: On evaluation of the lower extremities, there is bilateral known pitting +1 pedal edema. Pulses 2+ bilaterally. There is no clubbing or cyanosis. DIAGNOSTIC STUDIES/LAB DATA: Showed white blood count of 4.8, hemoglobin of 14.7, hematocrit of 45, and platelets of 179. Sodium was 138, potassium 4.1, chloride 105, carbon dioxide 27, BUN 13, creatinine 1.22. Liver function tests were unremarkable. C-reactive protein of 8.04. INR was 0.95, lipase was 23. Urinalysis showed +[address] of the abdomen and pelvis obtained today, impression: "Hepatomegaly and fatty infiltration of the liver, no acute pathology of the visualized abdomen and pelvis." Testicular ultrasound impression: "No sonographic features of torsion. Please note that the partial or intermittent torsion may be sonographically normal. No testicular parenchymal mass. Large bilateral hydroceles. No significant ___ __ abnormality in the area of region." Portable chest x-ray reviewed by myself shows mild vascular congestion. The Radiology report is still pending. ASSESSMENT AND PLAN: A 51-year-old morbidly obese male with history of coronary artery disease who presents with left flank pain. The pain is positional, worse when lying down and sitting up, better when standing up. It appears to be following a dermatome and is most likely radiculopathy and musculoskeletal related. It could also be shingles related, although the patient does not appear to have any shingles eruptions noted on the skin. At this point, since the patient's CT was with IV contrast and that could mask renal stone, I will obtain a limited left kidney ultrasound to rule out hydronephrosis or nephrolithiasis on the left side. If that is negative, the patient most likely has musculoskeletal pain and will be discharged home. He had been using hydrocodone at home and he can continue using it. He is also asked to see his primary care provider with recommendations to follow up with outpatient physical therapy. In regards to his chronic medical problem, there is no indication of acute cardiac problems, respiratory issues, and he is advised to continue to take his outpatient medications. The case was discussed with Dr. John, who agrees with the recommendations. TIME SPENT: Approximately 62 minutes were spent on consultation of this patient. More than half of that time was spent face to face with the patient in counseling and management of care. [id number] #: [id number] MEDHAT
== END 2016-11-21 19:03 | disposition home or self-care (01) ==
LOC: ED 08:36
DX: R10.84 Generalized abdominal pain (principal); Z87.891 Personal history of nicotine dependence
CPT/HCPCS: 36415; 71010; 74177; 76775; 76870; 80053; 81003; 81015; 83605; 83690; 85025; 85610; 85730; 86140; 96374; 96375; 99285; A9270-GY; J1885; J2270; J2405; Q9967

== ENCOUNTER 2016-11-25 01:48 | Emergency (ER) | payer MEDICARE, MEDICAID ==
[2016-11-25] MEDS ORDERED: Ondansetron INJ* 2 MG/ML VIAL IV ONE (02:26)
[2016-11-25] MEDS ORDERED: Morphine INJ* 4 MG/ML 1 ML SYRINGE IV ONE ×2 (02:26→04:59)
[2016-11-25] MEDS ORDERED: NS 0.9% 1000 ML* 1,000 ML IV SCH (02:30)
[2016-11-25 03:09] LABS: Hematocrit 44 % (42-52); Hemoglobin 14.4 g/dl (14.0-18.0); Mean Corpuscular HGB Conc 33 g/dl (31-36); Mean Corpuscular Hemoglobin 28 pg (27-31); Mean Corpuscular Volume 85 fL (80-94); Mean Platelet Volume 8 um3 (7.4-10.4); Red Blood Count 5.17 10^6/ul (4.0-5.4); Red Cell Distribution Width 15 % (10.5-15); White Blood Count 5.5 10^3/ul (3.5-10.8)
[2016-11-25 03:22] LABS: BUN/Creatinine Ratio 12.5 (8-20); C Reactive Protein 7.32 mg/L (< 5.00); Calcium 9.4 mg/dL (8.6-10.3); EGFR African American 81.4 (>60); EGFR Non-African American 63.3 (>60); Globulin 3.3 g/dL (2-4); Potassium 3.5 mmol/L (3.5-5.0); Total Bilirubin 0.5 mg/dL (0.2-1.0); Total Protein 7.3 g/dL (6.4-8.9)
[2016-11-25] MEDS ORDERED: Ketorolac INJ* 30 MG/ML 1 ML VIAL IV ONE (04:59)
--- NOTE | 2016-11-25 06:53 | ED ---
Olivia Kim Rebecca, scribed for Jeffery John MD on 11/25/16 at 0625 . GI/ HPI - HPI Summary HPI Summary: Pt is a 51 y/o M who presents to ED c/o worsening inguinal and testicular pain. Pain began 5 days ago and has been constant since onset, slightly improving 4 days ago, then worsening again. Pain is in the inguinal region and L testicle and is currently severe, ranked 10/10. Pain is characterized as burning and pulling. Sx aggravated by palpation and movement, alleviated by nothing. Additionally notes L testicular swelling and the sensation that there is a "pimple" on the testicle. Denies decreased appetite, constipation, dysuria, fever and chills. No PSHx on the abdomen. Has seen Dr. Villarreal before. "father up on the top it feels like ther eis a pimple" "feels like a head or something there" 3 L groin pain, went away for a little bit, saw seen on 11/21/2016 after wich the pain resolved for a little while, then it returned afterwards, was prescribed pain medication which did not help sx much same pain as before, but it gets worse and the L testicle is swollen and is very sensitive to touch additionally L flank pain with radiaiton to the inguinal region, aggravate dby laying on L side burning/pulling pain sx aggravated by movement c/o urgency yesterday - had a lot of pressure but cannot come out like its supposed to - did ont think much of it denies decreased appetite, constipation, dysuria, fever, chills "felt liek somebody moved" earlier befor ehe came in - History of Current Complaint Chief Complaint: EDUrogenitalProblems Time Seen by Provider: 11/25/16 05:55 Stated Complaint: MIDDLE GROIN PAIN Hx Obtained From: Patient Onset/Duration: Started Days Ago - 5 days ago, Still Present Timing: Constant Pain Intensity: 10 Location of Pain: Groin Additional Locations for Males: Testicles - Left Pain Characteristics: Burning, Other: - Pulling Associated Signs and Symptoms: Positive: Other: - L testicular swelling and a "pimple" on the testicle. Negative: Fever, Dysuria, Change in Appetite, Chills Aggravating Factor(s): Palpation, Movement Alleviating Factor(s): Nothing - Additional Pertinent History Primary Care Physician: [id number] - Allergy/Home Medications Allergies/Adverse Reactions: Allergies Allergy/AdvReac Type Severity Reaction Status Date / Time Penicillins Allergy Severe Anaphylatic Verified 11/25/16 02:26 Shock Amoxicillin Allergy Unknown Swelling Verified 11/25/16 02:26 [From Augmentin XR] Clavulanic Acid Allergy Unknown Swelling Verified 11/25/16 02:26 [From Augmentin XR] VINEGAR Allergy Intermediate Hives Uncoded 11/25/16 02:26 MUSHROOMS Allergy Unknown Rash Uncoded 11/25/16 02:26 PMH/Surg Hx/FS Hx/Imm Hx Endocrine/Hematology History: Reports: Hx Anticoagulant Therapy - plavix Denies: Hx Diabetes, Hx Sickle Cell Disease, Hx Thyroid Disease Cardiovascular History: Reports: Hx Angina, Hx Coronary Artery Disease, Hx Hypercholesterolemia, Hx Hypertension, Hx Myocardial Infarction, Other Cardiovascular Problems/Disorders - HEART DISEASE, CARDIAC EVENT MONITOR IMPLANTED Denies: Hx Congestive Heart Failure, Hx Pacemaker/ICD, Hx Valvular Heart Disease Respiratory History: Reports: Hx Asthma, Hx Sleep Apnea Denies: Hx Chronic Obstructive Pulmonary Disease (COPD) GI History: Reports: Hx Gastroesophageal Reflux Disease Denies: Hx Ulcer History: Reports: Hx Renal Disease - cysts, Other Problems/Disorders - bilat cyst on kidneys Musculoskeletal History: Reports: Hx Arthritis, Hx Back Problems, Other Musculoskeletal History - RANDEE Denies: Hx Scoliosis Sensory History: Reports: Hx Cataracts - right eye, Hx Hearing Problem - LEFT EAR HEARING AID Denies: Hx Contacts or Glasses, Hx Hearing Aid Opthamlomology History: Reports: Hx Cataracts - right eye Denies: Hx Contacts or Glasses Neurological History: Reports: Hx Transient Ischemic Attacks (TIA) Denies: Hx Dementia, Hx Headaches, Hx Seizures, Other Neuro Impairments/ Disorders Psychiatric History: Reports: Hx Depression Denies: Hx Panic Disorder - Cancer History Hx Chemotherapy: No - Surgical History Surgery Procedure, Year, and Place: APR 2004 sinus [facility] ;. 2007 left knee arthroscopy [facility] ;. 2012 left tympanoplasty WITH STAPES IMPLANT ([employer] HEAD SERIAL # [id number] - PER [employer] INFORMATION SENT TO MRI ON ; IMPLANT IS STAINLESS STEEL STATES SOME DEGREE OF MAGNETISM TESTED MRI SAFE AT 1.5T ONLY - DR ANAYA APPROVED THIS INFORMATION FOR 1.5T ONLY). [facility] ;. 2014 LEFT REVISION TYMPANOPLASTY/ MASTOIDECTOMY [facility] ;. 2011 HEART CATH - NO STENTS ;. 2010 HEART CATH WITH cardiac stents x 4 (PROMUS DRUG-ELUTING STENT OKAY IN NORMAL MODE ONLY, MAX 720 GAUSS/CM @ 1.5T) [facility] ; Hx Anesthesia Reactions: Yes - SEIZURE LIKE ACTIVITY; REINTUBATION AFTER LEFT EAR 2012 - Immunization History Date of Tetanus Vaccine: unknown Date of Influenza Vaccine: Fall 2011 Infectious Disease History: No Infectious Disease History: Denies: Hx Clostridium Difficile, Hx Hepatitis, Hx Human Immunodeficiency Virus (HIV), Hx of Known/Suspected MRSA, Hx Shingles, Hx Tuberculosis, Hx Known/ Suspected VRE, Hx Known/Suspected VRSA, History Other Infectious Disease, Traveled Outside the [place] in Last 30 Days - Family History Known Family History: Positive: Cardiac Disease, Hypertension, Diabetes - Social History Alcohol Use: None Hx Substance Use: No Substance Use Type: Reports: None Hx Tobacco Use: Yes Smoking Status (MU): Former Smoker Type: Cigarettes Length of Time of Smoking/Using Tobacco: 10-12 YRS Have You Smoked in the Last Year: No Review of Systems Negative: Fever, Chills Positive: Other - Denies constipation and decreased appetite Positive: pain - L testicular and inguinal pain; L testicular swelling. Negative: dysuria Positive: Other - a "pimple" on the testicle All Other Systems Reviewed And Are Negative: Yes Physical Exam - Summary Physical Exam Summary: General: well-appearing, moderate pain distress with any movement of the L leg Skin: warm, color reflects adequate perfusion, dry Head: normal Eyes: EOMI, SOLO ENT: normal Neck: supple, nontender Respiratory: CTA, breath sounds present Cardiovascular: RRR Abdomen: soft, tender in the L inguinal area and the L testicle, the L testicle does not feel swollen Bowel: present Musculoskeletal: normal, strength/ROM intact Neurological: normal, sensory/motor intact, A&O x3 Psychological: affect/mood appropriate Triage Information Reviewed: Yes Vital Signs On Initial Exam: Initial Vitals Temp Pulse Resp BP Pulse Ox 97.3 F 72 20 161/107 98 11/25/16 01:50 11/25/16 01:50 11/25/16 01:50 11/25/16 01:50 11/25/16 01:50 Vital Signs Reviewed: Yes - Louisa Coma Scale Coma Scale Total: 15 Diagnostics - Vital Signs Vital Signs Temp Pulse Resp BP Pulse Ox 11/25/16 05:10 18 11/25/16 03:01 20 11/25/16 02:21 97.3 F 72 20 161/107 98 11/25/16 01:50 97.3 F 72 20 161/107 98 - Laboratory Lab Results: Lab Results 11/25/16 11/25/16 11/25/16 Range/Units 03:00 03:00 03:00 WBC 5.5 (3.5-10.8) 10^3/ul RBC 5.17 (4.0-5.4) 10^6/ul Hgb 14.4 (14.0-18.0) g/dl Hct 44 (42-52) % MCV 85 (80-94) fL MCH 28 (27-31) pg MCHC 33 (31-36) g/dl RDW 15 (10.5-15) % Plt Count 186 (150-450) 10^3/ul MPV 8 (7.4-10.4) um3 Neut % (Auto) 60.4 (38-83) % Lymph % (Auto) 24.8 L (25-47) % [place] % (Auto) 9.5 H (1-9) % Eos % (Auto) 4.1 (0-6) % Baso % (Auto) 1.2 (0-2) % Absolute Neuts (auto) 3.3 (1.5-7.7) 10^3/ul Absolute Lymphs (auto) 1.4 (1.0-4.8) 10^3/ul Absolute Monos (auto) 0.5 (0-0.8) 10^3/ul Absolute Eos (auto) 0.2 (0-0.6) 10^3/ul Absolute Basos (auto) 0.1 (0-0.2) 10^3/ul Absolute Nucleated RBC 0 10^3/ul Nucleated RBC % 0.1 INR (Anticoag Therapy) 0.97 (0.89-1.11) APTT 41.6 H (26.0-36.3) seconds Sodium 135 (133-145) mmol/L Potassium 3.5 (3.5-5.0) mmol/L Chloride 103 (101-111) mmol/L Carbon Dioxide 26 (22-32) mmol/L Anion Gap 6 (2-11) mmol/L BUN 15 (6-24) mg/dL Creatinine 1.20 H (0.67-1.17) mg/dL Est GFR ( Amer) 81.4 (>60) Est GFR (Non-Af Amer) 63.3 (>60) BUN/Creatinine Ratio 12.5 (8-20) Glucose 116 H (70-100) mg/dL Lactic Acid (0.5-2.0) mmol/L Calcium 9.4 (8.6-10.3) mg/dL Total Bilirubin 0.50 (0.2-1.0) mg/dL AST 26 (13-39) U/L ALT 32 (7-52) U/L Alkaline Phosphatase 105 H (34-104) U/L C-Reactive Protein 7.32 H (< 5.00) mg/L Total Protein 7.3 (6.4-8.9) g/dL Albumin 4.0 (3.2-5.2) g/dL Globulin 3.3 (2-4) g/dL Albumin/Globulin Ratio 1.2 (1-3) Lipase 21 (11.0-82.0) U/L 11/25/16 Range/Units 03:00 WBC (3.5-10.8) 10^3/ul RBC (4.0-5.4) 10^6/ul Hgb (14.0-18.0) g/dl Hct (42-52) % MCV (80-94) fL MCH (27-31) pg MCHC (31-36) g/dl RDW (10.5-15) % Plt Count (150-450) 10^3/ul MPV (7.4-10.4) um3 Neut % (Auto) (38-83) % Lymph % (Auto) (25-47) % [place] % (Auto) (1-9) % Eos % (Auto) (0-6) % Baso % (Auto) (0-2) % Absolute Neuts (auto) (1.5-7.7) 10^3/ul Absolute Lymphs (auto) (1.0-4.8) 10^3/ul Absolute Monos (auto) (0-0.8) 10^3/ul Absolute Eos (auto) (0-0.6) 10^3/ul Absolute Basos (auto) (0-0.2) 10^3/ul Absolute Nucleated RBC 10^3/ul Nucleated RBC % INR (Anticoag Therapy) (0.89-1.11) APTT (26.0-36.3) seconds Sodium (133-145) mmol/L Potassium (3.5-5.0) mmol/L Chloride (101-111) mmol/L Carbon Dioxide (22-32) mmol/L Anion Gap (2-11) mmol/L BUN (6-24) mg/dL Creatinine (0.67-1.17) mg/dL Est GFR ( Amer) (>60) Est GFR (Non-Af Amer) (>60) BUN/Creatinine Ratio (8-20) Glucose (70-100) mg/dL Lactic Acid 1.5 (0.5-2.0) mmol/L Calcium (8.6-10.3) mg/dL Total Bilirubin (0.2-1.0) mg/dL AST (13-39) U/L ALT (7-52) U/L Alkaline Phosphatase (34-104) U/L C-Reactive Protein (< 5.00) mg/L Total Protein (6.4-8.9) g/dL Albumin (3.2-5.2) g/dL Globulin (2-4) g/dL Albumin/Globulin Ratio (1-3) Lipase (11.0-82.0) U/L Result Diagrams: 11/25/16 03:00 11/25/16 03:00 Lab Statement: Any lab studies that have been ordered have been reviewed, and results considered in the medical decision making process. GIGU Course/Dx - Course Course Of Treatment: NO CRITICAL CARE TIME. US/DISPOSITION PENDING AT SHIFT CHANGE. - Diagnoses Provider Diagnoses: Left inguinal pain, Scrotal pain Discharge - Discharge Plan Condition: Stable Disposition: OTHER Discharge Disposition Comment: . Referrals: Carlin Chu MD [Primary Care Provider] - The documentation as recorded by the Olivia brown Rebecca accurately reflects the service I personally performed and the decisions made by me, Jeffery John MD.
[2016-11-25] MEDS ORDERED: NS 0.9% 1000 ML* 1,000 ML IV ONE (07:08)
[2016-11-25 07:48] VITALS: BP 130/68
--- NOTE | 2016-11-25 08:18 | RAD ---
HISTORY: Hematuria, flank pain COMPARISONS: November 21, 2016 TECHNIQUE: Multiple transverse and longitudinal ultrasound images were obtained of the left kidney using grayscale and color Doppler imaging. FINDINGS: RIGHT KIDNEY: No images are submitted of the right kidney LEFT KIDNEY: Again noted is a simple cyst of the upper pole of left kidney measuring 5.9 cm. There is no hydronephrosis or nephrolithiasis. The left kidney measures 17.6 x 6.1 x 5.9 cm. BLADDER: No images are submitted of the bladder. AORTA AND IVC: No images are submitted of the vasculature. RETROPERITONEUM: Unremarkable. OTHER: None. IMPRESSION: LEFT RENAL CYST. NO HYDRONEPHROSIS OR NEPHROLITHIASIS.
--- NOTE | 2016-11-25 08:20 | RAD ---
HISTORY: Left testicular pain COMPARISONS: None TECHNIQUE: Multiple transverse and longitudinal ultrasound images were obtained of the scrotum, using grayscale, color Doppler, and spectral Doppler imaging. FINDINGS: RIGHT: RIGHT TESTICLE: The right testicle measures 3.8 x 2.7 x 2.8 cm. The right testicle is homogeneous in echotexture, without testicular parenchymal mass. Normal arterial and venous waveforms are identified within the right testicle on spectral Doppler imaging. RIGHT EPIDIDYMIS: The right epididymis measures 1.2 cm at the head. There is a moderate right hydrocele. RIGHT SCROTUM: There is no hydrocele or varicocele. LEFT: LEFT TESTICLE: The left testicle measures 3.9 x 2.6 x 2.7 cm. The left testicle is homogeneous in echotexture, without testicular parenchymal mass. Normal arterial and venous waveforms are identified within the left testicle on spectral Doppler imaging. An appendix testis is noted. Flow is noted within the neck of the appendix testis without flow noted in the head. LEFT EPIDIDYMIS: The left epididymis measures 1.6 cm at the head. LEFT SCROTUM: There is a small to moderate left hydrocele. OTHER: None IMPRESSION: 1. NO TESTICULAR PARENCHYMAL MASS. 2. NO SONOGRAPHIC FEATURES OF TESTICULAR TORSION. PLEASE NOTE THAT PARTIAL OR INTERMITTENT TORSION MAY BE SONOGRAPHICALLY NORMAL. 3. BILATERAL HYDROCELES. 4. THERE IS AN APPENDIX TESTIS NOTED ON THE LEFT. THERE IS RELATIVE HYPOPERFUSION OF THE APPENDIX TESTIS CYST MAY INDICATE TORSION OF THE APPENDIX TESTIS..
== END 2016-11-25 09:32 | disposition home or self-care (01) ==
LOC: ED 01:48
DX: R10.30 Lower abdominal pain, unspecified (principal); N50.82 Scrotal pain; I25.119 Atherosclerotic heart disease of native coronary artery with unspecified angina pectoris; I25.2 Old myocardial infarction; I10 Essential (primary) hypertension; Z95.5 Presence of coronary angioplasty implant and graft; E78.00 Pure hypercholesterolemia, unspecified; Z79.01 Long term (current) use of anticoagulants; J45.909 Unspecified asthma, uncomplicated; K21.9 Gastro-esophageal reflux disease without esophagitis; N28.9 Disorder of kidney and ureter, unspecified; F32.9 Major depressive disorder, single episode, unspecified; Z88.1 Allergy status to other antibiotic agents; Z88.0 Allergy status to penicillin; Z87.891 Personal history of nicotine dependence
CPT/HCPCS: 36415; 76775; 76870; 80053; 83605; 83690; 85025; 85610; 85730; 86140; 96361; 96374; 96375; 96376; 99283; J1885; J2270; J2405

== ENCOUNTER 2017-03-12 14:38 | Emergency (ER) | payer MEDICARE, MEDICAID ==
--- NOTE | 2017-03-12 17:48 | RAD ---
INDICATION: Recurrent Left-sided weakness COMPARISON: CT brain October 30, 2015 TECHNIQUE: Noncontrast axial source images were acquired from the skull base to the vertex. FINDINGS: Ventricles/sulci: The ventricles and cisterns are normal in size and configuration for age. Brain parenchyma: There is no focal parenchymal finding, evidence of intracranial mass, or intracranial mass effect. Intracranial hemorrhage:None. Extra-axial spaces: There are no abnormal extra axial fluid collections or evidence of extra-axial mass. Calvarium: There is no calvarial fracture or other calvarial abnormality. Scalp: There is no evidence of scalp or extracalvarial soft tissue abnormality. Paranasal sinuses/mastoid: There is mild left posterior ethmoid sinusitis. Other: None. IMPRESSION: No acute intracranial findings. Findings of mild left ethmoid sinusitis.
[2017-03-12 17:56] LABS: Urine Bacteria Absent (Absent); Urine Bilirubin Negative (Negative); Urine Glucose Negative (Negative); Urine Nitrite Negative (Negative)
[2017-03-12 17:58] LABS: Hematocrit 45 % (42-52); Hemoglobin 14.7 g/dl (14.0-18.0); Mean Corpuscular HGB Conc 33 g/dl (31-36); Mean Corpuscular Hemoglobin 28 pg (27-31); Mean Corpuscular Volume 86 fL (80-94); Mean Platelet Volume 8 um3 (7.4-10.4); Red Blood Count 5.21 10^6/ul (4.0-5.4); Red Cell Distribution Width 15 % (10.5-15); White Blood Count 5.5 10^3/ul (3.5-10.8)
[2017-03-12 18:18] LABS: Troponin I 0.01 ng/mL (<0.04)
[2017-03-12 18:20] LABS: Albumin 4.2 g/dL (3.2-5.2); BUN/Creatinine Ratio 10.7 (8-20); Calcium 9.7 mg/dL (8.6-10.3); EGFR African American 80.7 (>60); EGFR Non-African American 62.7 (>60); Globulin 3.3 g/dL (2-4); Potassium 3.5 mmol/L (3.5-5.0); Total Bilirubin 0.6 mg/dL (0.2-1.0); Total Protein 7.5 g/dL (6.4-8.9)
[2017-03-12 18:45] VITALS: BP 128/71
--- NOTE | 2017-03-14 07:19 | ED ---
Ariel Kim Benjamin, scribed for Carlin Pardo MD on 03/12/17 at 1729 . Neurological HPI - HPI Summary HPI Summary: 51yo male with prior hx of CVA presents to ED today with left anterior sided numbness and dull pain from left head/face to groin. Pt also reports intermittent tingling on his left side as well. Pt states that he wasn't able to move his left side in his prior CVA and that today's symptoms feel different. - History of Current Complaint Chief Complaint: EDGeneral Stated Complaint: LT SIDE HEAD & BODY PAIN Time Seen by Provider: 03/12/17 16:41 Hx Obtained From: Patient Onset/Duration: Gradual Onset, Started days ago, Still Present Timing: Constant Onset Severity: Mild Current Severity: Mild Neurological Deficit Location: Facial - left, LUE Pain Intensity: 0 Character: Numbness/Tingling - left side of his body - Additional Pertinent History Primary Care Physician: [facility] - Allergy/Home Medications Allergies/Adverse Reactions: Allergies Allergy/AdvReac Type Severity Reaction Status Date / Time Penicillins Allergy Severe Anaphylatic Verified 11/25/16 02:26 Shock Amoxicillin Allergy Unknown Swelling Verified 11/25/16 02:26 [From Augmentin XR] Clavulanic Acid Allergy Unknown Swelling Verified 11/25/16 02:26 [From Augmentin XR] VINEGAR Allergy Intermediate Hives Uncoded 11/25/16 02:26 MUSHROOMS Allergy Unknown Rash Uncoded 11/25/16 02:26 PMH/Surg Hx/FS Hx/Imm Hx Endocrine/Hematology History: Reports: Hx Anticoagulant Therapy - plavix Denies: Hx Diabetes, Hx Sickle Cell Disease, Hx Thyroid Disease Cardiovascular History: Reports: Hx Angina, Hx Coronary Artery Disease, Hx Hypercholesterolemia, Hx Hypertension, Hx Myocardial Infarction, Other Cardiovascular Problems/Disorders - HEART DISEASE, CARDIAC EVENT MONITOR IMPLANTED Denies: Hx Congestive Heart Failure, Hx Pacemaker/ICD, Hx Valvular Heart Disease Respiratory History: Reports: Hx Asthma, Hx Sleep Apnea Denies: Hx Chronic Obstructive Pulmonary Disease (COPD) GI History: Reports: Hx Gastroesophageal Reflux Disease Denies: Hx Ulcer History: Reports: Hx Renal Disease - cysts, Other Problems/Disorders - bilat cyst on kidneys Musculoskeletal History: Reports: Hx Arthritis, Hx Back Problems, Other Musculoskeletal History - RANDEE Denies: Hx Scoliosis Sensory History: Reports: Hx Cataracts - right eye, Hx Hearing Problem - LEFT EAR HEARING AID Denies: Hx Contacts or Glasses, Hx Hearing Aid Opthamlomology History: Reports: Hx Cataracts - right eye Denies: Hx Contacts or Glasses Neurological History: Reports: Hx Transient Ischemic Attacks (TIA) Denies: Hx Dementia, Hx Headaches, Hx Seizures, Other Neuro Impairments/ Disorders Psychiatric History: Reports: Hx Depression Denies: Hx Panic Disorder - Cancer History Hx Chemotherapy: No - Surgical History Surgery Procedure, Year, and Place: APR 2004 sinus [facility] [place] ;. 2007 left knee arthroscopy [facility] ;. 2012 left tympanoplasty WITH STAPES IMPLANT ([employer]elks[employer] MALLEOUS HEAD SERIAL # [id number] - PER [employer] INFORMATION SENT TO MRI ON ; IMPLANT IS STAINLESS STEEL STATES SOME DEGREE OF MAGNETISM TESTED MRI SAFE AT 1.5T ONLY - DR ANAYA APPROVED THIS INFORMATION FOR 1.5T ONLY). [facility] [place] ;. 2014 LEFT REVISION TYMPANOPLASTY/ MASTOIDECTOMY [facility] [place] ;. 2011 HEART CATH - NO STENTS ;. 2010 HEART CATH WITH cardiac stents x 4 (PROMUS DRUG-ELUTING STENT OKAY IN NORMAL MODE ONLY, MAX 720 GAUSS/CM @ 1.5T) [facility] ; Hx Anesthesia Reactions: Yes - SEIZURE LIKE ACTIVITY; REINTUBATION AFTER LEFT EAR 2012 - Immunization History Date of Tetanus Vaccine: unknown Date of Influenza Vaccine: Fall 2011 Infectious Disease History: No Infectious Disease History: Denies: Hx Clostridium Difficile, Hx Hepatitis, Hx Human Immunodeficiency Virus (HIV), Hx of Known/Suspected MRSA, Hx Shingles, Hx Tuberculosis, Hx Known/ Suspected VRE, Hx Known/Suspected VRSA, History Other Infectious Disease, Traveled Outside the [place] in Last 30 Days - Family History Known Family History: Positive: Cardiac Disease, Hypertension, Diabetes - Social History Alcohol Use: None Hx Substance Use: No Substance Use Type: Reports: None Hx Tobacco Use: Yes Smoking Status (MU): Former Smoker Type: Cigarettes Length of Time of Smoking/Using Tobacco: 10-12 YRS Have You Smoked in the Last Year: No Review of Systems Constitutional: Negative Eyes: Negative ENT: Negative Cardiovascular: Negative Respiratory: Negative Gastrointestinal: Negative Genitourinary: Negative Musculoskeletal: Negative Skin: Negative Positive: Numbness - left sided Psychological: Normal All Other Systems Reviewed And Are Negative: Yes Physical Exam - Summary Physical Exam Summary: VITAL SIGNS: Reviewed. GENERAL: Patient is a well-developed and nourished male who is lying comfortable in the stretcher. Patient is not in any acute respiratory distress. HEAD AND FACE: No signs of trauma. No ecchymosis, hematomas or skull depressions. No sinus tenderness. EYES: PERRLA, EOMI x 2, No injected conjunctiva, no nystagmus. EARS: Hearing grossly intact. Ear canals and tympanic membranes are within normal limits. MOUTH: Oropharynx within normal limits. NECK: Supple, trachea is midline, no adenopathy, no JVD, no carotid bruit, no c- spine tenderness, neck with full ROM. CHEST: Symmetric, no tenderness at palpation LUNGS: Clear to auscultation bilaterally. No wheezing or crackles. CVS: Regular rate and rhythm, S1 and S2 present, no murmurs or gallops appreciated. ABDOMEN: Soft, non-tender. No signs of distention. No rebound no guarding, and no masses palpated. Bowel sounds are normal. EXTREMITIES: FROM in all major joints, no edema, no cyanosis or clubbing. NEURO: Alert and oriented x 3. No acute neurological deficits. Speech is normal and follows commands. SKIN: Dry and warm Triage Information Reviewed: Yes Vital Signs On Initial Exam: Initial Vitals Temp Pulse Resp BP Pulse Ox 96.6 F 71 20 163/108 97 03/12/17 14:41 03/12/17 14:41 03/12/17 14:41 03/12/17 14:41 03/12/17 14:41 Vital Signs Reviewed: Yes - [place] Coma Scale Coma Scale Total: 15 Diagnostics - Vital Signs Vital Signs Temp Pulse Resp BP Pulse Ox 03/12/17 17:00 63 12 137/77 98 03/12/17 16:42 67 17 96 03/12/17 16:41 135/79 03/12/17 14:41 96.6 F 71 20 163/108 97 - Laboratory Lab Results: Lab Results 03/12/17 03/12/17 03/12/17 Range/Units 17:10 17:48 17:48 WBC 5.5 (3.5-10.8) 10^3/ul RBC 5.21 (4.0-5.4) 10^6/ul Hgb 14.7 (14.0-18.0) g/dl Hct 45 (42-52) % MCV 86 (80-94) fL MCH 28 (27-31) pg MCHC 33 (31-36) g/dl RDW 15 (10.5-15) % Plt Count 217 (150-450) 10^3/ul MPV 8 (7.4-10.4) um3 Neut % (Auto) 58.1 (38-83) % Lymph % (Auto) 29.0 (25-47) % [place] % (Auto) 8.8 (1-9) % Eos % (Auto) 3.2 (0-6) % Baso % (Auto) 0.9 (0-2) % Absolute Neuts (auto) 3.2 (1.5-7.7) 10^3/ul Absolute Lymphs (auto) 1.6 (1.0-4.8) 10^3/ul Absolute Monos (auto) 0.5 (0-0.8) 10^3/ul Absolute Eos (auto) 0.2 (0-0.6) 10^3/ul Absolute Basos (auto) 0.1 (0-0.2) 10^3/ul Absolute Nucleated RBC 0.01 10^3/ul Nucleated RBC % 0.2 INR (Anticoag Therapy) (0.89-1.11) APTT (26.0-36.3) seconds Sodium 141 (133-145) mmol/L Potassium 3.5 (3.5-5.0) mmol/L Chloride 106 (101-111) mmol/L Carbon Dioxide 30 (22-32) mmol/L Anion Gap 5 (2-11) mmol/L BUN 13 (6-24) mg/dL Creatinine 1.21 H (0.67-1.17) mg/dL Est GFR ( Amer) 80.7 (>60) Est GFR (Non-Af Amer) 62.7 (>60) BUN/Creatinine Ratio 10.7 (8-20) Glucose 87 (70-100) mg/dL Lactic Acid (0.5-2.0) mmol/L Calcium 9.7 (8.6-10.3) mg/dL Total Bilirubin 0.60 (0.2-1.0) mg/dL AST 17 (13-39) U/L ALT 29 (7-52) U/L Alkaline Phosphatase 99 (34-104) U/L Troponin I 0.01 (<0.04) ng/mL Total Protein 7.5 (6.4-8.9) g/dL Albumin 4.2 (3.2-5.2) g/dL Globulin 3.3 (2-4) g/dL Albumin/Globulin Ratio 1.3 (1-3) Urine Color Yellow Urine Appearance Clear Urine pH 5.0 (5-9) Ur Specific [place] 1.018 (1.010-1.030) Urine Protein Negative (Negative) Urine Ketones Negative (Negative) Urine Blood 1+ H (Negative) Urine Nitrate Negative (Negative) Urine Bilirubin Negative (Negative) Urine Urobilinogen Negative (Negative) Ur Leukocyte Esterase Negative (Negative) Urine WBC (Auto) Trace(0-5/hpf) (Absent) Urine RBC (Auto) 1+(3-5/hpf) H (Absent) Urine Bacteria Absent (Absent) Urine Glucose Negative (Negative) Urine Ascorbic Acid * H (Negative) Blood Type Antibody Screen 03/12/17 03/12/17 03/12/17 Range/Units 17:48 17:48 17:48 WBC (3.5-10.8) 10^3/ul RBC (4.0-5.4) 10^6/ul Hgb (14.0-18.0) g/dl Hct (42-52) % MCV (80-94) fL MCH (27-31) pg MCHC (31-36) g/dl RDW (10.5-15) % Plt Count (150-450) 10^3/ul MPV (7.4-10.4) um3 Neut % (Auto) (38-83) % Lymph % (Auto) (25-47) % [place] % (Auto) (1-9) % Eos % (Auto) (0-6) % Baso % (Auto) (0-2) % Absolute Neuts (auto) (1.5-7.7) 10^3/ul Absolute Lymphs (auto) (1.0-4.8) 10^3/ul Absolute Monos (auto) (0-0.8) 10^3/ul Absolute Eos (auto) (0-0.6) 10^3/ul Absolute Basos (auto) (0-0.2) 10^3/ul Absolute Nucleated RBC 10^3/ul Nucleated RBC % INR (Anticoag Therapy) 1.03 (0.89-1.11) APTT 40.3 H (26.0-36.3) seconds Sodium (133-145) mmol/L Potassium (3.5-5.0) mmol/L Chloride (101-111) mmol/L Carbon Dioxide (22-32) mmol/L Anion Gap (2-11) mmol/L BUN (6-24) mg/dL Creatinine (0.67-1.17) mg/dL Est GFR ( Amer) (>60) Est GFR (Non-Af Amer) (>60) BUN/Creatinine Ratio (8-20) Glucose (70-100) mg/dL Lactic Acid 1.9 (0.5-2.0) mmol/L Calcium (8.6-10.3) mg/dL Total Bilirubin (0.2-1.0) mg/dL AST (13-39) U/L ALT (7-52) U/L Alkaline Phosphatase (34-104) U/L Troponin I (<0.04) ng/mL Total Protein (6.4-8.9) g/dL Albumin (3.2-5.2) g/dL Globulin (2-4) g/dL Albumin/Globulin Ratio (1-3) Urine Color Urine Appearance Urine pH (5-9) Ur Specific [place] (1.010-1.030) Urine Protein (Negative) Urine Ketones (Negative) Urine Blood (Negative) Urine Nitrate (Negative) Urine Bilirubin (Negative) Urine Urobilinogen (Negative) Ur Leukocyte Esterase (Negative) Urine WBC (Auto) (Absent) Urine RBC (Auto) (Absent) Urine Bacteria (Absent) Urine Glucose (Negative) Urine Ascorbic Acid (Negative) Blood Type O Positive Antibody Screen Negative Result Diagrams: 03/12/17 17:48 03/12/17 17:48 Lab Statement: Any lab studies that have been ordered have been reviewed, and results considered in the medical decision making process. - CT CT Brain CT Interpretation: No Acute Changes - IMPRESSION: No acute intracranial findings. Findings of mild left ethmoid sinusitis. CT Interpretation Completed By: Radiologist - ED physician has reviewed this radiology report and agrees. - EKG 1753. Cardiac Rate: NL - 61bpm EKG Rhythm: Sinus Rhythm ST Segment: Normal Ectopy: None Course/Dx - Course Course Of Treatment: Test results are without any significant abnormalities. CT Brain IMPRESSION: No acute intracranial findings. Findings of mild left ethmoid sinusitis. I believe his symptoms are secondary to neuropathy. Therefore, pt will be discharged with Follow up plans with his PCP. I discussed all the findings and test results with the patient. Patient was instructed to return to the emergency room immediately if any of the symptoms return or worsens. Plan of care was discussed with the patient and understands and agrees. All questions were answered at patient satisfaction. There were no further complaints or concerns. Lung exam before discharge: CTA B/L. Good air exchange. No wheezing or crackles heard. CVS: S1 and S2 present. No murmurs appreciated. Patient is alert and oriented x 3. Patient is hemodynamically stable. Patient will be discharged home with follow up PCP in the next 2-3 days - Diagnoses Provider Diagnoses: Neuropathy Discharge - Discharge Plan Condition: Stable Disposition: HOME Patient Education Materials: Peripheral Neuropathy (ED) Referrals: Carlin Chu MD [Primary Care Provider] - The documentation as recorded by the Ariel brown Benjamin accurately reflects the service I personally performed and the decisions made by me, Carlin Pardo MD.
== END 2017-03-12 18:52 | disposition home or self-care (01) ==
LOC: ED 14:38
DX: R20.0 Anesthesia of skin (principal); Z87.891 Personal history of nicotine dependence; G62.9 Polyneuropathy, unspecified
CPT/HCPCS: 36415; 70450; 80053; 81003; 81015; 83605; 84484; 85025; 85610; 85730; 86850; 86900; 86901; 93005; 99282

== ENCOUNTER 2017-04-05 13:14 | Observation (INO) | payer MEDICARE, MEDICAID ==
[2017-04-05] MEDS ORDERED: Aspirin Low Dose CHEW TAB* 81 MG PO ONE (13:45)
--- NOTE | 2017-04-05 14:13 | RAD ---
INDICATION: Chest pain. COMPARISON: Comparison is made with a prior chest x-ray study from October 30, 2016. TECHNIQUE: A portable view of the chest was obtained. FINDINGS: Cardiac and mediastinal contours appear to be within normal limits. The lungs are clear. No pleural effusion is seen. There is a electronic device which projects overlying the cardiac apex. IMPRESSION: NO EVIDENCE FOR ACUTE DISEASE.
[2017-04-05] MEDS: Nitroglycerin TAB 0.4 MG* 0.4 MG TAB SL ONE ×3 (14:18→14:31)
[2017-04-05 14:30] LABS: Hematocrit 44 % (42-52); Hemoglobin 14.4 g/dl (14.0-18.0); Mean Corpuscular HGB Conc 33 g/dl (31-36); Mean Corpuscular Hemoglobin 28 pg (27-31); Mean Corpuscular Volume 86 fL (80-94); Mean Platelet Volume 8 um3 (7.4-10.4); Red Blood Count 5.14 10^6/ul (4.0-5.4); Red Cell Distribution Width 15 % (10.5-15); White Blood Count 5.7 10^3/ul (3.5-10.8)
[2017-04-05] MEDS ORDERED: Morphine INJ* 4 MG/ML 1 ML CARPUJECT IV ONE ×2 (14:40→15:30)
[2017-04-05] MEDS ORDERED: Ondansetron INJ* 2 MG/ML VIAL IV ONE (14:40)
[2017-04-05 14:41] LABS: Albumin 4.3 g/dL (3.2-5.2); BUN/Creatinine Ratio 16.1 (8-20); Calcium 9.8 mg/dL (8.6-10.3); EGFR African American 88.2 (>60); EGFR Non-African American 68.6 (>60); Globulin 3.1 g/dL (2-4); Potassium 3.9 mmol/L (3.5-5.0); Total Bilirubin 0.5 mg/dL (0.2-1.0); Total Protein 7.4 g/dL (6.4-8.9)
[2017-04-05 14:43] LABS: Troponin I 0.01 ng/mL (<0.04)
[2017-04-05] MEDS ORDERED: Morphine INJ* 4 MG/ML 1 ML CARPUJECT ONE ×2 (15:34→15:38)
[2017-04-05] MEDS ORDERED: Iohexol 350* (CONTRAST) 500 ML MDV IV ONE (16:08)
[2017-04-05] MEDS ORDERED: Ketorolac INJ* 30 MG/ML 1 ML VIAL IV PUSH ONE (17:07)
--- NOTE | 2017-04-05 17:27 | RAD ---
INDICATION: Chest pain, dizziness. Coronary artery disease with stents. COMPARISON: April 05, 2017 chest radiograph and May 19, 2013 CT. TECHNIQUE: Multidetector CT images were obtained from the lung apices to the upper abdomen with 80 mL Omnipaque 350 IV contrast. Pulmonary angiogram protocol. Multiplanar reformation including with maximum intensity projection. REPORT: Respiratory motion artifact degrades image quality. Minimal bibasilar atelectasis. No pulmonary infiltrate, focal pulmonary lesion, pleural effusion, pneumothorax. Negative for thoracic lymphadenopathy. Upper normal heart size. Negative for pericardial effusion. Normal diameter thoracic aorta. Negative for aortic dissection. Prominent main pulmonary artery measuring up to 5.0 cm diameter in the cephalocaudal dimension without gross change compared with the [address] pulmonary angiogram is mildly limited due to respiratory motion artifact. No filling defects are identified from the main to the subsegmental pulmonary arteries to indicate presence of a pulmonary embolism. Images through the upper abdomen are remarkable for partially visualized cortical cyst at the upper poles of the kidneys with interval enlargement compared with the 2013 exam. IMPRESSION: 1. Mildly limited CT pulmonary angiogram due to margin artifact without compelling evidence for pulmonary embolism. 2. Prominent main pulmonary artery measuring up to 5.0 cm diameter in the cephalocaudal dimension without gross change compared with the 2013 exam. This may reflect aneurysm and may be sequela of pulmonary arterial hypertension.
[2017-04-05] MEDS ORDERED: Acetaminophen TAB* 325 MG PO PRN (17:56)
[2017-04-05] MEDS ORDERED: Albuterol HFA INHALER* 8 gm MDI INH PRN (18:00)
--- NOTE | 2017-04-05 18:56 | ED ---
Nicholas Kim Angela, scribed for Osvaldo Daniels MD on 04/05/17 at 1408 . HPI Chest Pain - HPI Summary HPI Summary: This pt is a 51 y/o male presenting to [facility] c/o chest pain today. Pt reports he was supposed to have an appointment today with orthopedics but it was rescheduled for next week. He was supposed to be seen today for a possible full knee replacement. Pt notes both of his legs are always swollen. Today, pt c/o back pain, SOB, and left arm pain and discomfort. Pt notes his chest pain feels like pressure. He denies any PMHc of blood clots. PMHx includes HTN, high cholesterol, MO. Pt has had 3 cardiac stents and his coffee brewer is Dr. Alcaraz. His last stress test was last year. Pt notes his chest pain today feels like a past heart attack. - History of Current Complaint Chief Complaint: EDChestPainROMI Time Seen by Provider: 04/05/17 13:44 Hx Obtained From: Patient Onset/Duration: Started Hours Ago, Still Present Timing: Lasting Hours Current Severity: Severe Pain Intensity: 10 Pain Scale Used: 0-10 Numeric Chest Pain Location: Diffuse Chest Pain Radiates: Yes Chest Pain Radiates To:: Back Character: Pressure/Squeezing Associated Signs and Symptoms: Positive: Chest Pain, Shortness of Breath, Back Pain, Calf Pain/Swelling, Other: - left arm pain - Additional Pertinent History Primary Care Physician: ZURI - Allergy/Home Medications Allergies/Adverse Reactions: Allergies Allergy/AdvReac Type Severity Reaction Status Date / Time Penicillins Allergy Severe Anaphylatic Verified 11/25/16 02:26 Shock Amoxicillin Allergy Unknown Swelling Verified 11/25/16 02:26 [From Augmentin XR] Clavulanic Acid Allergy Unknown Swelling Verified 11/25/16 02:26 [From Augmentin XR] VINEGAR Allergy Intermediate Hives Uncoded 11/25/16 02:26 MUSHROOMS Allergy Unknown Rash Uncoded 11/25/16 02:26 PMH/Surg Hx/FS Hx/Imm Hx Endocrine/Hematology History: Reports: Hx Anticoagulant Therapy - plavix Denies: Hx Diabetes, Hx Sickle Cell Disease, Hx Thyroid Disease Cardiovascular History: Reports: Hx Angina, Hx Coronary Artery Disease, Hx Hypercholesterolemia, Hx Hypertension, Hx Myocardial Infarction, Other Cardiovascular Problems/Disorders - HEART DISEASE, CARDIAC EVENT MONITOR IMPLANTED Denies: Hx Congestive Heart Failure, Hx Pacemaker/ICD, Hx Valvular Heart Disease Respiratory History: Reports: Hx Asthma, Hx Sleep Apnea Denies: Hx Chronic Obstructive Pulmonary Disease (COPD) GI History: Reports: Hx Gastroesophageal Reflux Disease Denies: Hx Ulcer History: Reports: Hx Renal Disease - cysts, Other Problems/Disorders - bilat cyst on kidneys Musculoskeletal History: Reports: Hx Arthritis, Hx Back Problems, Other Musculoskeletal History - RANDEE Denies: Hx Scoliosis Sensory History: Reports: Hx Cataracts - right eye, Hx Hearing Problem - LEFT EAR HEARING AID Denies: Hx Contacts or Glasses, Hx Hearing Aid Opthamlomology History: Reports: Hx Cataracts - right eye Denies: Hx Contacts or Glasses Neurological History: Reports: Hx Transient Ischemic Attacks (TIA) Denies: Hx Dementia, Hx Headaches, Hx Seizures, Other Neuro Impairments/ Disorders Psychiatric History: Reports: Hx Depression Denies: Hx Panic Disorder - Cancer History Hx Chemotherapy: No - Surgical History Surgery Procedure, Year, and Place: APR 2004 [place] [facility] [place]. 2007 [place] knee arthrosc[place] [facility] [place] ;. 2012 left tympanoplasty WITH STAPES IMPLANT ([employer] MALLEOUS HEAD SERIAL # [id number] - PER [employer] INFORMATION SENT TO MRI ON ; IMPLANT IS STAINLESS STEEL STATES SOME DEGREE OF MAGNETISM TESTED MRI SAFE AT 1.5T ONLY - DR ANAYA APPROVED THIS INFORMATION FOR 1.5T ONLY). [facility] [place]. [place] LEFT REVISION TYMPANOPLASTY/ MASTOIDECTOMY [facility] [place] ;. 2011 HEART CATH - NO STENTS ;. 2010 HEART CATH WITH cardiac stents x 4 (PROMUS DRUG-ELUTING STENT OKAY IN NORMAL MODE ONLY, MAX 720 GAUSS/CM @ 1.5T) [facility] [place] ; Hx Anesthesia Reactions: Yes - SEIZURE LIKE ACTIVITY; REINTUBATION AFTER LEFT EAR 2012 - Immunization History Date of Tetanus Vaccine: unknown Date of Influenza Vaccine: Fall 2011 Infectious Disease History: No Infectious Disease History: Denies: Hx Clostridium Difficile, Hx Hepatitis, Hx Human Immunodeficiency Virus (HIV), Hx of Known/Suspected MRSA, Hx Shingles, Hx Tuberculosis, Hx Known/ Suspected VRE, Hx Known/Suspected VRSA, History Other Infectious Disease, Traveled Outside the [place] in Last 30 Days - Family History Known Family History: Positive: Cardiac Disease, Hypertension, Diabetes - Social History Alcohol Use: None Hx Substance Use: No Substance Use Type: Reports: None Hx Tobacco Use: Yes Smoking Status (MU): Former Smoker Type: Cigarettes Length of Time of Smoking/Using Tobacco: 10-12 YRS Have You Smoked in the Last Year: No Review of Systems Negative: Fever, Chills Negative: Erythema Negative: Sore Throat Positive: Chest Pain Positive: Shortness Of Breath. Negative: Cough Negative: Abdominal Pain, Vomiting, Nausea Negative: dysuria, hematuria Musculoskeletal: Other - back pain, left arm pain Positive: Edema - both legs. Negative: Myalgia Negative: Rash Neurological: Negative - dizziness All Other Systems Reviewed And Are Negative: Yes Physical Exam - Summary Physical Exam Summary: Constitutional: Well-developed, Well-nourished, Alert. (-) Distressed Skin: Warm, Dry HENT: Normocephalic; Atraumatic Eyes: Conjunctiva normal Neck: Musculoskeletal ROM normal neck. (-) JVD, (-) Stridor, (-) Tracheal deviation Cardio: Rhythm regular, rate normal, Heart sounds normal; Intact distal pulses; The pedal pulses are 2+ and symmetric. Radial pulses are 2+ and symmetric. (-) Murmur Pulmonary/Chest wall: Effort normal. (-) Respiratory distress, (-) Wheezes, (-) Rales. No reproducible chest pain. Abd: Soft, (-) Tenderness, (-) Distension, (-) Guarding, (-) Rebound Musculoskeletal: (-) Edema Lymph: (-) Cervical adenopathy Neuro: Alert, Oriented x3 Psych: Mood and affect Normal Triage Information Reviewed: Yes Vital Signs On Initial Exam: Initial Vitals Temp Pulse Resp BP Pulse Ox 96.7 F 67 20 134/82 97 04/05/17 13:17 04/05/17 13:17 04/05/17 13:17 04/05/17 13:17 04/05/17 13:17 Vital Signs Reviewed: Yes Diagnostics - Vital Signs Vital Signs Temp Pulse Resp BP Pulse Ox 04/05/17 13:17 96.7 F 67 20 134/82 97 - Laboratory Lab Results: Lab Results 04/05/17 04/05/17 04/05/17 Range/Units 14:16 14:16 14:16 WBC 5.7 (3.5-10.8) 10^3/ul RBC 5.14 (4.0-5.4) 10^6/ul Hgb 14.4 (14.0-18.0) g/dl Hct 44 (42-52) % MCV 86 (80-94) fL MCH 28 (27-31) pg MCHC 33 (31-36) g/dl RDW 15 (10.5-15) % Plt Count 211 (150-450) 10^3/ul MPV 8 (7.4-10.4) um3 Neut % (Auto) 59.4 (38-83) % Lymph % (Auto) 28.5 (25-47) % [place] % (Auto) 9.5 H (1-9) % Eos % (Auto) 1.8 (0-6) % Baso % (Auto) 0.8 (0-2) % Absolute Neuts (auto) 3.4 (1.5-7.7) 10^3/ul Absolute Lymphs (auto) 1.6 (1.0-4.8) 10^3/ul Absolute Monos (auto) 0.5 (0-0.8) 10^3/ul Absolute Eos (auto) 0.1 (0-0.6) 10^3/ul Absolute Basos (auto) 0 (0-0.2) 10^3/ul Absolute Nucleated RBC 0 10^3/ul Nucleated RBC % 0 Sodium 138 (133-145) mmol/L Potassium 3.9 (3.5-5.0) mmol/L Chloride 103 (101-111) mmol/L Carbon Dioxide 30 (22-32) mmol/L Anion Gap 5 (2-11) mmol/L BUN 18 (6-24) mg/dL Creatinine 1.12 (0.67-1.17) mg/dL Est GFR ( Amer) 88.2 (>60) Est GFR (Non-Af Amer) 68.6 (>60) BUN/Creatinine Ratio 16.1 (8-20) Glucose 109 H (70-100) mg/dL Lactic Acid 1.3 (0.5-2.0) mmol/L Calcium 9.8 (8.6-10.3) mg/dL Total Bilirubin 0.50 (0.2-1.0) mg/dL AST 20 (13-39) U/L ALT 33 (7-52) U/L Alkaline Phosphatase 113 H (34-104) U/L Troponin I 0.01 (<0.04) ng/mL Total Protein 7.4 (6.4-8.9) g/dL Albumin 4.3 (3.2-5.2) g/dL Globulin 3.1 (2-4) g/dL Albumin/Globulin Ratio 1.4 (1-3) 04/05/17 Range/Units 16:46 WBC (3.5-10.8) 10^3/ul RBC (4.0-5.4) 10^6/ul Hgb (14.0-18.0) g/dl Hct (42-52) % MCV (80-94) fL MCH (27-31) pg MCHC (31-36) g/dl RDW (10.5-15) % Plt Count (150-450) 10^3/ul MPV (7.4-10.4) um3 Neut % (Auto) (38-83) % Lymph % (Auto) (25-47) % [place] % (Auto) (1-9) % Eos % (Auto) (0-6) % Baso % (Auto) (0-2) % Absolute Neuts (auto) (1.5-7.7) 10^3/ul Absolute Lymphs (auto) (1.0-4.8) 10^3/ul Absolute Monos (auto) (0-0.8) 10^3/ul Absolute Eos (auto) (0-0.6) 10^3/ul Absolute Basos (auto) (0-0.2) 10^3/ul Absolute Nucleated RBC 10^3/ul Nucleated RBC % Sodium (133-145) mmol/L Potassium (3.5-5.0) mmol/L Chloride (101-111) mmol/L Carbon Dioxide (22-32) mmol/L Anion Gap (2-11) mmol/L BUN (6-24) mg/dL Creatinine (0.67-1.17) mg/dL Est GFR ( Amer) (>60) Est GFR (Non-Af Amer) (>60) BUN/Creatinine Ratio (8-20) Glucose (70-100) mg/dL Lactic Acid (0.5-2.0) mmol/L Calcium (8.6-10.3) mg/dL Total Bilirubin (0.2-1.0) mg/dL AST (13-39) U/L ALT (7-52) U/L Alkaline Phosphatase (34-104) U/L Troponin I 0.01 (<0.04) ng/mL Total Protein (6.4-8.9) g/dL Albumin (3.2-5.2) g/dL Globulin (2-4) g/dL Albumin/Globulin Ratio (1-3) Result Diagrams: 04/05/17 14:16 04/05/17 14:16 Lab Statement: Any lab studies that have been ordered have been reviewed, and results considered in the medical decision making process. - Radiology Chest XR Xray Interpretation: No Acute Changes - IMPRESSION: No evidence for acute disease. ED physician has reviewed this radiology report and agrees. Radiology Interpretation Completed By: Radiologist - CT CTA Chest CT Interpretation: Positive (See Comments) - IMPRESSION: 1. Mildly limited CT pulmonary angiogram due to margin artifact without compelling evidence for pulmonary embolism. 2. Prominent main pulmonary artery measuring up to 5.0 cm diameter in the cephalocaudal dimension without gross change compared with the 2013 exam. This may reflect aneurysm and may be sequela of pulmonary arterial hypertension. ED physician has reviewed this radiology report and agrees. CT Interpretation Completed By: Radiologist - EKG 1331 Cardiac Rate: NL EKG Rhythm: Sinus Rhythm - at 63 bpm EKG Interpretation: No STEMI. T wave inversion in V5 and V6. 1539 Cardiac Rate: NL EKG Rhythm: Sinus Rhythm - at 61 bpm EKG Interpretation: No STEMI Chest Pain Course/Dx - Course Assessment/Plan: This pt is a 51 y/o male presenting to [facility] c/o chest pain today. Pt reports he was supposed to have an appointment today with orthopedics but it was rescheduled for next week. He was supposed to be seen today for a possible full knee replacement. Pt notes both of his legs are always swollen. Today, pt c/o back pain, SOB, and left arm pain and discomfort. Pt notes his chest pain feels like pressure. He denies any PMHc of blood clots. PMHx includes HTN, high cholesterol, MO. Pt has had 3 cardiac stents and his coffee brewer is Dr. Alcaraz. His last stress test was last year. Pt notes his chest pain today feels like a past heart attack. Lab work, EKG, chest XR, and CTA chest were ordered. Labs show glucose of 109. Chest XR is negative for acute disease. EKG shows T wave inversions in V5 and V6. CTA chest reveals 1. Mildly limited CT pulmonary angiogram due to margin artifact without compelling evidence for pulmonary embolism. 2. Prominent main pulmonary artery measuring up to 5.0 cm diameter in the cephalocaudal dimension without gross change compared with the 2013 exam. This may reflect aneurysm and may be sequela of pulmonary arterial hypertension. In the ED course, the pt was given aspirin, morphine, nitroglycerin, toradol, and Zofran. I discussed pt care with Dr. Matthews, who has agreed to admit the pt. - Diagnoses Provider Diagnoses: Chest pain - Provider Notifications Discussed Care Of Patient With: Juan Carlos Matthews Time Discussed With Above Provider: 16:30 Instructed by Provider To: Other - I discussed pt care with Dr. Matthews, who has agreed to admit the pt. Discharge - Discharge Plan Condition: Stable Disposition: ADMITTED TO [facility] The documentation as recorded by the Nicholas brown Angela accurately reflects the service I personally performed and the decisions made by , Osvaldo Daniels MD.
[2017-04-05] MEDS ORDERED: Morphine INJ* 4 MG/ML 1 ML CARPUJECT IV PRN (21:15)
[2017-04-05] MEDS: Potassium Chlor TAB* 20 MEQ TAB.ER PO SCH (21:50)
[2017-04-05] MEDS: Heparin VIAL(*) 5000 UNITS/ML VIAL (FIVE THOUSAND) SUBCUT SCH (21:50)
[2017-04-05] MEDS: Mometasone/Formoter 200/5 MDI INH SCH (22:06)
--- NOTE | 2017-04-06 01:35 | HP ---
CC: Dr. Chu HISTORY AND PHYSICAL: DATE OF ADMISSION: 04/05/17 PRIMARY CARE PHYSICIAN: Dr. Chu. CHIEF COMPLAINT: Chest pain. HISTORY OF PRESENT ILLNESS: Mr. Glaser is a 51-year-old male with a past medical history of hypertens ion, hyperlipidemia, RANDEE on CPAP, morbid obesity, CAD status post stent placement, asthma, peripheral vascular disease and repeated trips to the hospital for chest pain who presents to the hospital with chest pain that began earlier today. The patient states he woke up with some slight soreness in the middle of his left back. He states he had a doctor's appointment today, so he began to get ready an d headed down to the bus around 12:45. When he got downstairs, he stated that he had some "flutterin g" associated with some chest soreness that he reports is in the midsternal area. It is nonradiating , not associated with any nausea, vomiting or diaphoresis. He states that these episodes are flutter ing, kind of come and go on throughout the day, lasting for a few minutes and then resolving and then coming back again. The chest soreness/pressure seems to be more persistent. He denies any fever, c hills, URI symptoms, abdominal pain, dysuria, hematuria, blood in the stool. He follows up with Dr. Alcaraz. He cannot recall the last time he saw him, but thinks it was sometime this year. On review of the patient's chart, it seems that he has been worked up for chest pain numerous times i n the past. He was last admitted for this in September of this past year and he underwent a nuclear cardia c stress test that did not show any acute areas of ischemia. He subsequently presented to the ED a m onth later with chest pain and was sent home after he responded to Toradol. Looking back in our syst em, we probably have nearly a 100 troponin draws on the patient, all of which have been negative. PAST MEDICAL HISTORY: 1. CAD, status post stent placement. 2. Morbid obesity. 3. RANDEE, on CPAP. 4. Palpitations. 5. Hyperlipidemia. 6. Asthma. 7. Peripheral vascular disease. 8. Hypertension. PAST SURGICAL HISTORY: 1. Status post TKA. 2. Inner ear surgery. 3. Sinus surgery. HOME MEDICATIONS: 1. Potassium chloride 20 mEq 3 times daily. 2. Plavix 75 mg by mouth daily. 3. Aspirin 325 mg by mouth daily. 4. Advair 1 puff inhaled 2 times daily. 5. Atorvastatin 20 mg by mouth daily. 6. Bystolic 10 mg by mouth daily. 7. Toprol 50 mg by mouth daily. 8. Dyazide 37.5/25 mg by mouth 1 capsule daily. 9. Albuterol 2 puffs inhaled 4 times daily as needed for shortness of breath or wheezing. ALLERGIES: PENICILLIN, AMOXICILLIN, AUGMENTIN, VINEGAR, and MUSHROOMS. FAMILY HISTORY: Significant for mother with CHF, father with CHF, brother with cardiac event who pas sed away. SOCIAL HISTORY: The patient denies tobacco or alcohol abuse. No illicit drug use. REVIEW OF SYSTEMS: A 12-point review of systems is negative except for that as noted in the HPI. PHYSICAL EXAMINATION GENERAL: The patient is a middle aged obese Afrian-[place] man lying in bed, in no apparent distres s. VITAL SIGNS: On admission: Temperature 96.7, heart rate 67, respiratory rate 20, O2 saturation 97% on room air, blood pressure 134/82. HEENT: Head normocephalic, atraumatic. Eyes: Pupils equal, round, reactive to light and accommodat ion. Anicteric sclerae. ENT: Moist mucous membranes. NECK: No cervical adenopathy. LUNGS: Clear to auscultation bilaterally. No wheezes, rales or rhonchi. CARDIOVASCULAR: Regular rate and rhythm. S1, S2 present. No murmurs, gallops, or rubs. ABDOMEN: Soft, nontender, nondistended. Bowel sounds positive. EXTREMITIES: No cyanosis, clubbing or edema. Left knee brace in place. NEUROLOGIC: The patient is alert and oriented x3. No focal neurologic deficits. LABS AND DIAGNOSTICS: White blood cell count 5.7, hematocrit 44, platelets 211,000. Sodium 138, po tassium 3.9, chloride 103, carbon dioxide 30, BUN 18, creatinine 1.12, glucose 109, alk phos of 113. Remainder of LFTs within normal limits. Troponins negative x2. Chest x-ray, impression: Review shows no acute disease. CTA of the chest done shows mildly limited CT angiogram due to margin artifact without compelling evidence for pulmonary embolism. Prominent ma in pulmonary artery measuring up to 5 cm in diameter in the cephalocaudal dimension without gross geovanna nge compared to the 2013 exam. This may reflect aneurysm and may be sequelae of pulmonary arterial h ypertension. EKG personally reviewed shows normal sinus rhythm, first degree AV block, chronic T-wav e changes. ASSESSMENT AND PLAN: Chest pain and palpitations in a 51-year-old male with a past medical history o f hypertension, hyperlipidemia, coronary artery disease, morbid obesity, obstructive sleep apnea on C PAP. 1. Chest pain and palpitations. The patient has presented similarly a number of times. I feel this is most likely not cardiac. I gave a dose of Toradol in the ED as he seemed to respond to this in t he past. We will continue to trend the patient's troponins. We will monitor him on telemetry. If t roponins remain negative, we will likely discharge tomorrow and consider outpatient stress test. 2. Hypertension. Continue home triamterene HCTZ and metoprolol. 3. Coronary artery disease. Continue home aspirin, Plavix, statin, and beta- angelo. 4. Obstructive sleep apnea, CPAP q.h.s. 5. Peripheral vascular disease. Continue aspirin and Plavix. 6. DVT prophylaxis, heparin subcu. 7. Code status. The patient is a full code. TIME SPENT: Total time spent on this admission, 45 minutes with over half the time spent face-to-fac e with the patient in counseling and coordinating care. [id number]/[facility] #: [id number]
[2017-04-06] MEDS: Heparin VIAL(*) 5000 UNITS/ML VIAL (FIVE THOUSAND) SUBCUT SCH (06:01)
[2017-04-06] MEDS: Mometasone/Formoter 200/5 MDI INH SCH (08:29)
[2017-04-06] MEDS: Potassium Chlor TAB* 20 MEQ TAB.ER PO SCH (08:59)
[2017-04-06] MEDS: Atorvastatin* 20 MG TAB PO SCH ×2 (08:59→09:09)
[2017-04-06] MEDS ORDERED: Triamterene/HCTZ 37.5-25 MG* CAP PO SCH (09:00)
[2017-04-06] MEDS ORDERED: Clopidogrel TAB* 75 MG PO SCH (09:00)
[2017-04-06] MEDS ORDERED: Aspirin TAB* 325 MG PO SCH (09:00)
[2017-04-06] MEDS: CMCS Nebivolol TAB (NF) 2.5 MG TAB PO SCH ×2 (09:01→09:57)
[2017-04-06] MEDS: Metoprolol Succinate XL TAB* 50 MG PO SCH ×2 (09:01→09:53)
--- NOTE | 2017-04-06 09:03 | PN ---
Subjective Date of Service: 04/06/17 Interval History: On tele this AM patient noted to have 3 episodes of dropped QRS complexes, appears to be Mobitz Type 1 Patient seen this morning. Continues to complain of chest pain that has been constant overnight but overall seems to be slightly improved, now an 8/10 instead of 9-10. Continues to have intermittent episodes of "fluttering" that has gone on throughout the night as well, reports they last about 3 minutes and then resolve. Does not report any worsening with laying flat or after meals, no worse with deep breathing. States he takes Metoprolol and Bystolic at home, outpatient pharmacist had double checked with Dr. Alcaraz. Family History: Unchanged from Admission Social History: Unchanged from Admission Past Medical History: Unchanged from Admission Objective Active Medications: Acetaminophen (Tylenol Tab*) 650 mg PO Q4H PRN Albuterol (Ventolin Hfa Inhaler*) 2 puff INH QID PRN Aspirin (Aspirin Tab*) 325 mg PO DAILY [facility] Atorvastatin Calcium (Lipitor*) 20 mg PO DAILY [facility] Clopidogrel Bisulfate (Plavix Tab*) 75 mg PO DAILY [facility] Heparin Sodium (Porcine) (Heparin Vial(*)) 5,000 units SUBCUT Q8HR [facility] Metoprolol Succinate (Toprol Xl Tab*) 50 mg PO DAILY [facility] Mometasone Furoate/Formoterol Fumar (Dulera 200/5 Mdi*) 2 puff INH BID [facility] Morphine Sulfate (Morphine Inj (Syringe)*) 4 mg IV Q4H PRN Nebivolol (Bystolic Tab (Nf)) 10 mg PO DAILY [facility] Potassium Chloride (Klor Con Er Tab*) 20 meq PO TID [facility] Triamterene/HCTZ (Dyazide Cap*) 1 cap PO DAILY [facility] Vital Signs 04/05/17 04/05/17 04/05/17 18:00 19:00 19:50 Temperature Pulse Rate 57 56 56 Respiratory 14 20 21 Rate Blood Pressure 135/68 (mmHg) O2 Sat by Pulse 94 96 94 Oximetry 04/05/17 04/06/17 04/06/17 23:08 00:05 03:17 Temperature 97.5 F 98.0 F Pulse Rate 54 55 Respiratory 14 16 16 Rate Blood Pressure 120/60 143/64 (mmHg) O2 Sat by Pulse 97 100 Oximetry 04/06/17 07:28 Temperature 97.5 F Pulse Rate 58 Respiratory 16 Rate Blood Pressure 139/79 (mmHg) O2 Sat by Pulse 98 Oximetry Oxygen Devices in Use Now: None Appearance: Middle-aged, obese, AAM, sitting in bed in NAD Eyes: No Scleral Icterus Ears/Nose/Mouth/Throat: Mucous Membranes Moist Neck: NL Appearance and Movements; NL JVP Respiratory: Symmetrical Chest Expansion and Respiratory Effort, Clear to Auscultation Cardiovascular: NL Sounds; No Murmurs; No JVD, RRR Abdominal: NL Sounds; No Tenderness; No Distention Lymphatic: No Cervical Adenopathy Extremities: No Edema Skin: No Rash or Ulcers Neurological: Alert and Oriented x 3 Result Diagrams: 04/05/17 14:16 04/05/17 14:16 Assess/Plan/Problems-Billing Assessment: Chest pain and "fluttering" in a 51 yo M with hx of HTN, HLD, CAD s/p PCI, hx of VTach, PVD, RANDEE on CPAP - Patient Problems (1) Chest pain Current Visit: No Comment: Troponins have remained negative x 3, unlikely to be cardiac etiology. Continues this morning but slightly improved. Reports Toradol in ED "took the edge off". Has been declining tylenol because it won't work. Will trial H2 angelo.
[2017-04-06] MEDS ORDERED: Al Hydrox/Mg Hydrox/Simet LIQ* 30 ML UDC PO ONE (09:13)
[2017-04-06] MEDS ORDERED: Lidocaine 2% VISCOUS* 15 ML UDC PO ONE (09:13)
[2017-04-06] MEDS ORDERED: Famotidine TAB* 20 MG PO ONE (09:15)
[2017-04-06 10:13] LABS: BUN/Creatinine Ratio 16.7 (8-20); Calcium 9.5 mg/dL (8.6-10.3); EGFR Non-African American 71.5 (>60); Magnesium 1.9 mg/dL (1.9-2.7); Potassium 3.6 mmol/L (3.5-5.0)
[2017-04-06 11:25] VITALS: BP 127/66
[2017-04-06] MEDS ORDERED: Potassium Chlor TAB* 20 MEQ TAB.ER PO ONE (12:18)
[2017-04-06] MEDS ORDERED: Magnesium Oxide TAB* 400 MG PO ONE (12:18)
--- NOTE | 2017-04-06 12:21 | DCNOTE ---
Patient seen this morning. Continued to complain of chest pressure but it is slightly improved. Also reports intermittent "fluttering". On tele patient had 3 episodes of dropped QRS with previous LA prolongation c/w Mobitz type one 2nd degree AV block. Occasional PVCs but nothing persistent. On exam, obese, middle-aged AAM, sitting in bed in NAD, RRR, s1 and s2 present, no m/g/r, abd obese, soft, NTND, BS+, no LE edema Seems that chest pain is unlikely to be cardiac and "fluttering" patient is feeling is not corresponding to tele monitoring. Spoke with Dr. Abdi regarding Mobitz Type I AV Block, she will set up holter monitor for the patient. Will not make any medication changes at this time, will continue on Metoprolol and Bystolic. Patient had some slight improvement with toradol and slight improvement with GI cocktail. Will continue on Ranitidine and prn tylenol, I suspect this pain should resolve over the next days.
[2017-04-06] MEDS ORDERED: Atorvastatin* 20 MG TAB PO SCH (17:00)
== END 2017-04-06 13:35 | disposition home or self-care (01) ==
LOC: ED 13:14 → MEDTELE 17:56
PROVIDERS: ADMIT Hospitalist; ATTEND Hospitalist
DX: R07.9 Chest pain, unspecified (principal); I25.119 Atherosclerotic heart disease of native coronary artery with unspecified angina pectoris; Z95.5 Presence of coronary angioplasty implant and graft; E78.5 Hyperlipidemia, unspecified; I73.9 Peripheral vascular disease, unspecified; I10 Essential (primary) hypertension; E66.01 Morbid (severe) obesity due to excess calories; J45.909 Unspecified asthma, uncomplicated; Z79.899 Other long term (current) drug therapy; Z79.82 Long term (current) use of aspirin; Z88.0 Allergy status to penicillin; Z88.2 Allergy status to sulfonamides; Z79.01 Long term (current) use of anticoagulants; Z87.891 Personal history of nicotine dependence; R94.31 Abnormal electrocardiogram [ECG] [EKG]
CPT/HCPCS: 36415; 71010; 71275; 80048; 80053; 83605; 83735; 84484; 85025; 93005; 94640; 94660; 96374; 96375; 96376; 99285; A9270-GY; G0378; J1644; J1885; J2270; J2405; Q9967

== ENCOUNTER 2017-06-06 13:36 | Inpatient (IN) | payer MEDICARE, MEDICAID ==
[2017-06-06] MEDS ORDERED: LORazepam INJ* 2 MG/ML 1 ML VIAL IV ONE (13:46)
[2017-06-06] MEDS ORDERED: NS 0.9% 1000 ML* 1,000 ML IV ONE (13:48)
[2017-06-06 14:20] LABS: ABS Basophils 0.1 10^3/ul (0-0.2); ABS Eosinophils 0.1 10^3/ul (0-0.6); ABS Lymphocytes 1.3 10^3/ul (1.0-4.8); ABS Monocytes 0.5 10^3/ul (0-0.8); ABS Neutrophils 3.6 10^3/ul (1.5-7.7); ABS Nucleated RBC 0 10^3/ul; Eosinophil % 1.8 % (0-6); Hematocrit 45 % (42-52); Hemoglobin 14.9 g/dl (14.0-18.0); Lymphocyte % 22.9 % (25-47); Mean Corpuscular HGB Conc 33 g/dl (31-36); Mean Corpuscular Hemoglobin 28 pg (27-31); Mean Corpuscular Volume 85 fL (80-94); Mean Platelet Volume 8 um3 (7.4-10.4); Nucleated Red Blood Cells % 0; Platelet Count 196 10^3/ul (150-450); Red Blood Count 5.28 10^6/ul (4.0-5.4); Red Cell Distribution Width 15 % (10.5-15); White Blood Count 5.6 10^3/ul (3.5-10.8)
[2017-06-06 14:32] LABS: EGFR Non-African American 77.3 (>60)
[2017-06-06 14:36] LABS: INR 0.98 (0.77-1.02)
--- NOTE | 2017-06-06 14:44 | RAD ---
HISTORY: Altered mental status COMPARISONS: March 12, 2017 TECHNIQUE: Multiple contiguous axial CT scans were obtained of the head without intravenous contrast. FINDINGS: HEMORRHAGE/INFARCT: There is no hemorrhage or acute infarct. MASSES/SHIFT: There is no mass or shift. EXTRA-AXIAL SPACES: There are no extra-axial fluid collections. SULCI AND VENTRICLES: The sulci and ventricles are normal in size and position for the patient's stated age. CEREBRUM: There are no focal parenchymal abnormalities. BRAINSTEM: There are no focal parenchymal abnormalities. CEREBELLUM: There are no focal parenchymal abnormalities. VESSELS: The vessels are grossly normal. PARANASAL SINUSES: There is a mucous retention cyst of the left maxillary sinus. ORBITS: The orbits are unremarkable. BONES AND SOFT TISSUE: No bone or soft tissue abnormalities are noted. OTHER: None IMPRESSION: NO ACUTE INTRACRANIAL PATHOLOGY.
[2017-06-06] MEDS ORDERED: Acetaminophen TAB* 325 MG PO PRN (16:10)
[2017-06-06] MEDS ORDERED: Ondansetron INJ* 2 MG/ML VIAL IV PRN (16:10)
[2017-06-06] MEDS ORDERED: Albuterol 2.5 MG/3 ML NEB.SOL* (0.083%) INH PRN (16:36)
--- NOTE | 2017-06-06 16:37 | ED ---
Herrera Kim Thomas, scribed for Jeffery John MD on 06/06/17 at 1437 . Altered Mental Status - HPI Summary HPI Summary: LEVEL 5 CAVEAT: HPI LIMITED BY AMS The patient is a 51 year old male who came into the emergency room with body trembling. He did not respond to questioning, but he did nod his head saying that he is in pain. The exam has not been taken yet. - History Of Current Complaint Chief Complaint: EDAltMentalStatus Stated Complaint: CHEST PAIN Time Seen by Provider: 06/06/17 13:42 Hx From Patient Unobtainable Due To: Altered Mental Status Onset/Duration: Unknown - Allergies/Home Medications Allergies/Adverse Reactions: Allergies Allergy/AdvReac Type Severity Reaction Status Date / Time Penicillins Allergy Severe Anaphylatic Verified 11/25/16 02:26 Shock Amoxicillin Allergy Unknown Swelling Verified 11/25/16 02:26 [From Augmentin XR] Clavulanic Acid Allergy Unknown Swelling Verified 11/25/16 02:26 [From Augmentin XR] VINEGAR Allergy Intermediate Hives Uncoded 11/25/16 02:26 MUSHROOMS Allergy Unknown Rash Uncoded 11/25/16 02:26 Home Medications: Home Medications Nitroglycerin TAB 0.4 MG* 0.4 mg SL Q5M PRN 06/06/17 [History Confirmed 06/06/17 ] Potassium Chlor TAB* [Klor Con ER TAB*] 2 tab PO EVERY OTHER DAY 06/06/17 [ History Confirmed 06/06/17] Potassium Chlor TAB* [Klor Con ER TAB*] 4 tab PO EVERY OTHER DAY 06/06/17 [ History Confirmed 06/06/17] PMH/Surg Hx/FS Hx/Imm Hx Previously Healthy: No - LEVEL 5 CAVEAT: PMH LIMITED BY AMS Endocrine/Hematology History: Reports: Hx Anticoagulant Therapy - plavix Denies: Hx Diabetes, Hx Sickle Cell Disease, Hx Thyroid Disease Cardiovascular History: Reports: Hx Angina, Hx Cardiac Arrest, Hx Coronary Artery Disease, Hx Hypercholesterolemia, Hx Hypertension, Hx Myocardial Infarction, Other Cardiovascular Problems/Disorders - HEART DISEASE, CARDIAC EVENT MONITOR IMPLANTED Denies: Hx Congestive Heart Failure, Hx Pacemaker/ICD, Hx Valvular Heart Disease Respiratory History: Reports: Hx Asthma, Hx Sleep Apnea Denies: Hx Chronic Obstructive Pulmonary Disease (COPD) GI History: Reports: Hx Gastroesophageal Reflux Disease Denies: Hx Ulcer History: Reports: Hx Renal Disease - cysts, Other Problems/Disorders - bilat cyst on kidneys Musculoskeletal History: Reports: Hx Arthritis, Hx Back Problems, Other Musculoskeletal History - RANDEE Denies: Hx Scoliosis Sensory History: Reports: Hx Cataracts - right eye, Hx Contacts or Glasses - not with patient Denies: Hx Hearing Aid, Hx Hearing Problem Opthamlomology History: Reports: Hx Cataracts - right eye, Hx Contacts or Glasses - not with patient Neurological History: Reports: Hx Transient Ischemic Attacks (TIA) Denies: Hx Dementia, Hx Headaches, Hx Seizures, Other Neuro Impairments/ Disorders Psychiatric History: Reports: Hx Depression Denies: Hx Panic Disorder - Cancer History Hx Chemotherapy: No - Surgical History Surgery Procedure, Year, and Place[place] [facility] [place] [facility] ;. 2012 left tympanoplasty WITH STAPES IMPLANT ([employer] MALLEOUS HEAD SERIAL # [id number] - PER [employer] INFORMATION SENT TO MRI ON ; IMPLANT IS STAINLESS STEEL STATES SOME DEGREE OF MAGNETISM TESTED MRI SAFE AT 1.5T ONLY - DR ANAYA APPROVED THIS INFORMATION FOR 1.5T ONLY[place] [facility] [place]. [place]ION [place]MPANOPLASTY/ MASTOIDECTOMY [facility] [place]. 2011 HEART CATH - NO STENTS ;. 2010 HEART CATH WITH cardiac stents x 4 ([employer]US DRUG-ELUTING STENT OKAY IN NORMAL MODE ONLY, MAX 720 GAUSS/CM @ 1.5T) [facility] ; Hx Anesthesia Reactions: Yes - SEIZURE LIKE ACTIVITY; REINTUBATION AFTER LEFT EAR 2012 - Immunization History Date of Tetanus Vaccine: unknown Date of Influenza Vaccine: Fall 2011 Infectious Disease History: Denies: Hx Clostridium Difficile, Hx Hepatitis, Hx Human Immunodeficiency Virus (HIV), Hx of Known/Suspected MRSA, Hx Shingles, Hx Tuberculosis, Hx Known/ Suspected VRE, Hx Known/Suspected VRSA, History Other Infectious Disease, Traveled Outside the [place] in Last 30 Days - Family History Known Family History: Positive: Cardiac Disease, Hypertension, Diabetes - Social History Alcohol Use: None Hx Substance Use: No Substance Use Type: Reports: None Hx Tobacco Use: Yes Smoking Status (MU): Former Smoker Type: Cigarettes Length of Time of Smoking/Using Tobacco: 10-12 YRS Have You Smoked in the Last Year: No Review of Systems - ROS Summary Review of Systems Summary: LEVEL 5 CAVEAT: ROS LIMITED BY AMS Positive: Chest Pain Neurological: Other - Unresponsive All Other Systems Reviewed And Are Negative: No Physical Exam - Summary Physical Exam Summary: LEVEL 5 CAVEAT: PHYSICAL EXAM LIMITED BY AMS General: well-appearing, no pain distress Skin: warm, color reflects adequate perfusion, dry Head: normal Eyes: EOMI, SOLO ENT: normal Neck: supple, nontender Respiratory: CTA, breath sounds present Cardiovascular: RRR Abdomen: soft, nontender Bowel: present Musculoskeletal: normal, strength/ROM intact Neurological: normal, sensory/motor intact, A&O x3 Psychological: affect/mood appropriate Triage Information Reviewed: Yes Vital Signs On Initial Exam: Initial Vitals Resp 22 06/06/17 14:09 Vital Signs Reviewed: Yes Diagnostics - Vital Signs Vital Signs Resp 06/06/17 14:09 22 - Laboratory Lab Results: Lab Results 06/06/17 06/06/17 06/06/17 Range/Units 14:07 14:07 14:07 WBC 5.6 (3.5-10.8) 10^3/ul RBC 5.28 (4.0-5.4) 10^6/ul Hgb 14.9 (14.0-18.0) g/dl Hct 45 (42-52) % MCV 85 (80-94) fL MCH 28 (27-31) pg MCHC 33 (31-36) g/dl RDW 15 (10.5-15) % Plt Count 196 (150-450) 10^3/ul MPV 8 (7.4-10.4) um3 Neut % (Auto) 65.2 (38-83) % Lymph % (Auto) 22.9 L (25-47) % Mcpherson % (Auto) 9.2 H (1-9) % Eos % (Auto) 1.8 (0-6) % Baso % (Auto) 0.9 (0-2) % Absolute Neuts (auto) 3.6 (1.5-7.7) 10^3/ul Absolute Lymphs (auto) 1.3 (1.0-4.8) 10^3/ul Absolute Monos (auto) 0.5 (0-0.8) 10^3/ul Absolute Eos (auto) 0.1 (0-0.6) 10^3/ul Absolute Basos (auto) 0.1 (0-0.2) 10^3/ul Absolute Nucleated RBC 0 10^3/ul Nucleated RBC % 0 INR (Anticoag Therapy) 0.98 (0.77-1.02) APTT 38.3 H (26.0-36.3) seconds Sodium 136 (133-145) mmol/L Potassium 3.6 (3.5-5.0) mmol/L Chloride 104 (101-111) mmol/L Carbon Dioxide 25 (22-32) mmol/L Anion Gap 7 (2-11) mmol/L BUN 13 (6-24) mg/dL Creatinine 1.01 (0.67-1.17) mg/dL Est GFR ( Amer) 99.4 (>60) Est GFR (Non-Af Amer) 77.3 (>60) BUN/Creatinine Ratio 12.9 (8-20) Glucose 105 H (70-100) mg/dL Lactic Acid (0.5-2.0) mmol/L Calcium 9.6 (8.6-10.3) mg/dL Magnesium 1.9 (1.9-2.7) mg/dL Total Bilirubin 0.60 (0.2-1.0) mg/dL AST 21 (13-39) U/L ALT 33 (7-52) U/L Alkaline Phosphatase 117 H (34-104) U/L Total Creatine Kinase 324 H (10-223) U/L CK-MB (CK-2) 2.5 (0.6-6.3) ng/mL Troponin I 0.01 (<0.04) ng/mL C-Reactive Protein 5.83 H (< 5.00) mg/L Total Protein 7.2 (6.4-8.9) g/dL Albumin 4.2 (3.2-5.2) g/dL Globulin 3.0 (2-4) g/dL Albumin/Globulin Ratio 1.4 (1-3) Serum Alcohol < 10 (<10) mg/dL 06/06/17 Range/Units 14:07 WBC (3.5-10.8) 10^3/ul RBC (4.0-5.4) 10^6/ul Hgb (14.0-18.0) g/dl Hct (42-52) % MCV (80-94) fL MCH (27-31) pg MCHC (31-36) g/dl RDW (10.5-15) % Plt Count (150-450) 10^3/ul MPV (7.4-10.4) um3 Neut % (Auto) (38-83) % Lymph % (Auto) (25-47) % Mcpherson % (Auto) (1-9) % Eos % (Auto) (0-6) % Baso % (Auto) (0-2) % Absolute Neuts (auto) (1.5-7.7) 10^3/ul Absolute Lymphs (auto) (1.0-4.8) 10^3/ul Absolute Monos (auto) (0-0.8) 10^3/ul Absolute Eos (auto) (0-0.6) 10^3/ul Absolute Basos (auto) (0-0.2) 10^3/ul Absolute Nucleated RBC 10^3/ul Nucleated RBC % INR (Anticoag Therapy) (0.77-1.02) APTT (26.0-36.3) seconds Sodium (133-145) mmol/L Potassium (3.5-5.0) mmol/L Chloride (101-111) mmol/L Carbon Dioxide (22-32) mmol/L Anion Gap (2-11) mmol/L BUN (6-24) mg/dL Creatinine (0.67-1.17) mg/dL Est GFR ( Amer) (>60) Est GFR (Non-Af Amer) (>60) BUN/Creatinine Ratio (8-20) Glucose (70-100) mg/dL Lactic Acid 2.1 H* (0.5-2.0) mmol/L Calcium (8.6-10.3) mg/dL Magnesium (1.9-2.7) mg/dL Total Bilirubin (0.2-1.0) mg/dL AST (13-39) U/L ALT (7-52) U/L Alkaline Phosphatase (34-104) U/L Total Creatine Kinase (10-223) U/L CK-MB (CK-2) (0.6-6.3) ng/mL Troponin I (<0.04) ng/mL C-Reactive Protein (< 5.00) mg/L Total Protein (6.4-8.9) g/dL Albumin (3.2-5.2) g/dL Globulin (2-4) g/dL Albumin/Globulin Ratio (1-3) Serum Alcohol (<10) mg/dL Result Diagrams: 06/06/17 14:07 06/06/17 14:07 Lab Statement: Any lab studies that have been ordered have been reviewed, and results considered in the medical decision making process. - CT CT Brain CT Interpretation: No Acute Changes - No acute intracranial pathology. Dr. John has reviewed this report. CT Interpretation Completed By: Radiologist - EKG 14:01 Cardiac Rate: NL EKG Rhythm: Sinus Rhythm - at 75 BPM EKG Interpretation: Flipped T in lateral leads. No ectopy. Altered Mental Statu Course/Dx - Course Course Of Treatment: ADMIT HOSPITALIST. - Diagnoses Discharge Diagnoses: Altered mental state - Critical Care Time Critical Care Time: 30-74 min Discharge - Discharge Plan Condition: Stable Disposition: ADMITTED TO [facility] Referrals: Carlin Chu MD [Primary Care Provider] - The documentation as recorded by the Herrera brown Thomas accurately reflects the service I personally performed and the decisions made by Alvaro arroyo William, MD.
[2017-06-06 18:08] LABS: Urine Appearance Clear; Urine Blood 1+ (Negative); Urine Color Yellow; Urine Ketones Negative (Negative); Urine Protein Negative (Negative); Urine Specific Gravity 1.015 (1.010-1.030); Urine Urobilinogen Negative (Negative)
--- NOTE | 2017-06-06 19:17 | RAD ---
Indication: Confusion, seizures. Image sequences: Sagittal and axial T1, axial T2, FLAIR, diffusion and susceptibility weighted images of the brain were obtained. Comparison is made with previous exam dated October 31, 2015. Ventricular structures are midline. No midline shift is noted. The extra-axial spaces are unremarkable. There is no evidence of intracranial mass or hemorrhage. No other high or low signal lesions identified. No vasogenic edema is noted. No restriction of diffusion is identified. The FLAIR images demonstrates no evidence of vasogenic edema. The posterior fossa demonstrates no focal masses in the cerebellopontine angle. The brainstem is otherwise unremarkable. There is a fatty lipoma in the scalp. Mucous retention cyst is noted in the maxillary sinuses and ethmoid air cells. IMPRESSION: No intracranial mass or hemorrhage is noted. Chronic sinusitis as described above. Overall no changes noted since October 31, 2015.
[2017-06-06] MEDS ORDERED: LORazepam INJ* 2 MG/ML 1 ML VIAL ONE ×2 (19:52→19:56)
[2017-06-06] MEDS ORDERED: levETIRAcetam IV* 1,000 MG in NS 100 mL IVPB ONE (20:00)
--- NOTE | 2017-06-06 20:07 | HP ---
CC: Dr. Chu; Dr. Loaiza * HISTORY AND PHYSICAL: DATE OF ADMISSION: 06/06/17 PRIMARY CARE PROVIDER: Dr. Chu. ATTENDING PHYSICIAN WHILE IN THE HOSPITAL: Renaldo Pacheco MD * (report dictated by Justin Bains NP). CHIEF COMPLAINT: 1. Altered mental status. 2. Chest pain. HISTORY OF PRESENT ILLNESS: Mr. Glaser is a 51-year-old male patient. He has a history of cryptogenic stroke in the past, history of CAD, obesity, RANDEE, palpitations, hyperlipidemia, asthma, history of MO, hypertension, and peripheral vascular disease. He comes in to our ER today, he says that he just finished the [employer] appointment. He was feeling funny. He was feeling off. He does not really elaborate how he was feeling. He says he thought maybe he was hungry, so he actually went to [email or web address], he sat down, had a meal. He basically ate, felt a little bit better, but then he wanted to go home. He caught the bus, while going to the bus and getting on the bus, he started having chest discomfort, 02/26. He got off the bus at the first stop and went to department of renal social worker. According to the patient, he went in and asked them to call 911 and they called 911. Ambulance reports that when they were hooking up for monitors they noticed that he started shaking, he was having lip smacking. He was moving his right foot and hand. He became unresponsive. They gave him 5 of Versed and he slowly started to come back to his baseline. I guess when he got here into the ER, he had another similar episode like this. The last thing he recalls was the ambulance arriving and then he recalls showing up here in the ER. He does not really remember the ambulance ride according to him. He denied any loss of incontinence. He denies having any chest pain currently. He said he did have a chest pain while getting on the bus. He described it as a sharp stabbing pain that was in both sides of his chest and he says he really could not take a deep breath because it hurt. He denies any recent URI symptoms. He said yesterday, he was feeling well. He denied feeling nauseated. He denied having any abdominal discomfort and he says that he was not vomiting. He again was concerned because of the chest pain and his altered mental status, he came in to the ED, he was evaluated. We were asked to evaluate for admission. PAST MEDICAL HISTORY: Significant for: 1. CAD. 2. Obesity. 3. RANDEE. 4. Palpitations. 5. Hyperlipidemia. 6. Asthma. 7. PVD. 8. History of cryptogenic CVA. 9. Hypertension. 10. History of MO. PAST SURGICAL HISTORY: 1. The patient has had inner ear surgery. 2. He has had sinus surgery. 3. Cardiac catheterization. MEDICATIONS: Home meds according to the list that was provided, includes: 1. Potassium 2 tablets every other day. 2. Nitro 0.4 mg sublingual q.5 minutes x3 for chest pain. 3. Lipitor 20 mg daily. 4. Aspirin 325 mg daily. 5. Dyazide 1 capsule p.o. daily. 6. Bystolic 10 mg daily. 7. Plavix 75 mg daily. 8. Potassium 4 tablets p.o. every other day. ALLERGIES TO MEDICATIONS: Include AUGMENTIN and PENICILLIN. FAMILY HISTORY: Both his parents had a history of heart failure. SOCIAL HISTORY: He does not smoke. Denied alcohol abuse. Surrogate decision maker is his sister, Valarie. REVIEW OF SYSTEMS: There is no documented fever. He denied having any significant weight change. There was no double vision. There was no ear discharge. He denied having any rhinorrhea. There was no sore throat. There was no thyroid enlargement. There was chest pain per my HPI. No orthopnea. No nocturnal dyspnea. There was no abdominal pain. No nausea. No vomiting. No dysuria. No frequency. There was question of a seizure-like activity. Review of 14 systems completed, all others negative. PHYSICAL EXAMINATION GENERAL: At this time, Mr. Glaser is a 51-year-old male patient. He appears to be well nourished, well developed. He does not appear to be in any acute distress. VITAL SIGNS: Blood pressure 123/75, pulse 70, respirations 20, O2 sat 99%, temperature 97.5. HEENT: Head is atraumatic. Eyes: Sclerae anicteric, not pale. Throat: Oral mucosa appears to be dry. No oropharyngeal erythema. NECK: Supple. LUNGS: Clear to auscultation. No wheezes, rales, or rhonchi. HEART: Sounds S1, S2. Regular rate and rhythm. No murmurs, rubs, or gallops. ABDOMEN: Soft, it was flat, nontender. Bowel sounds were present. EXTREMITIES: Pulses were 2+ throughout. He can move all 4 extremities. He had no peripheral edema. NEUROLOGICAL: He is drowsy, but he does awaken to his name. He follows commands. [id number] intact bilaterally. Yxkw-os-[id number] intact bilaterally. He had no double vision reported now, he did report this to the nurses earlier. His visual acuity was intact. Cranial nerves II through XII were intact. He had no gross focal deficits. He did certainly appear to be overall drowsy, but no focal neurological deficits were noted on my exam. SKIN: Intact. DIAGNOSTIC STUDIES/LAB DATA: WBC of 5.6, RBC of 5.28, hemoglobin of 14.9, hematocrit of 45, platelet count 196,000. His INR was 0.98. PTT was 38.3. His sodium was 136, potassium 3.6, chloride of 104, bicarb 25, BUN 13, creatinine 1.01, glucose 105, lactate 2.1, calcium 9.6, mag 1.9, total bili 0.6. AST 21, ALT 33, alk phos 117. CK 324, CK-MB 2.5. Troponin 0.01. Albumin of 4.2. He had a brain CT obtained today, impression: No acute intracranial pathology. He had an EKG obtained today, which showed sinus rhythm, inverted T-waves in lead I and aVL, which he has had previously. No ST elevations were noted. Old medical records were reviewed. ASSESSMENT AND PLAN: Mr. Glaser is a 51-year-old male patient with multiple medical problems, coming in to the ED today with complaints of altered mental status and chest discomfort. He will be admitted under observation status for: 1. Altered mental status. At this point, I am concerned that he may have had a seizure. I did discuss the case with Dr. Loaiza, who evaluated the patient. We will order seizure precautions and EEG has been ordered. We will get an MRI of the brain. CT of the brain was negative and we will follow him closely with frequent neuro checks. I am not starting antiepileptics at this point. I will wait to see if he has any other event, if he does then we will load him with Keppra. We will continue to follow. 2. Coronary artery disease. We will continue his aspirin, statin, and beta- angelo therapy. He is also on Plavix. 3. Obstructive sleep apnea. I did order a CPAP. 4. History of palpitations. He will be placed on telemetry. 5. Hyperlipidemia. Continue statin therapy. 6. History of asthma. I will order p.r.n. albuterol. 7. History of cerebrovascular accident. Continue with secondary prevention. 8. Hypertension. Continue meds as prescribed. 9. Chest pain. At this point, until I know for sure the patient had seizure- like activity, I would like to go ahead and hold off on doing a stress test, but I will cycle his troponins. He had a stress test in September of last year, which was read as no changes from the 2013 exam, but we will follow him closely. 10. DVT prophylaxis. He will be placed on heparin subcu. 11. Code status. Full code. 12. Fluids, electrolytes, and nutrition. He can have a heart-healthy diet. TIME SPENT: On this admission was 60 minutes, greater than half the time was spent [id number] with the patient obtaining my history and physical; other half the time was spent going over the plan of care with the patient and implementing the plan of care. I did discuss the plan of care with my attending , Dr. Pacheco, he is in agreement. JUSTIN BAINS NP [id number]/CPS #: [id number] MED[facility]AT
[2017-06-06] MEDS ORDERED: levETIRAcetam IV* 1,000 MG in NS 0.9% 100 ML* 100 ML IVPB ONE (20:11)
[2017-06-06] MEDS: Heparin VIAL(*) 5000 UNITS/ML VIAL (FIVE THOUSAND) SUBCUT SCH (21:52)
[2017-06-06] MEDS: Atorvastatin* 20 MG TAB PO SCH (21:57)
--- NOTE | 2017-06-06 22:30 | CONS ---
CC: Carlin Chu MD * CONSULTATION REPORT: DATE OF CONSULTATION: 06/06/17 LOCATION: Currently in the ED bed 14. PRIMARY CARE PROVIDER: Carlin Chu MD REASON FOR CONSULTATION: Seizure-like activity. HISTORY OF PRESENT ILLNESS: Mr. Glaser is a 51-year-old gentleman who has a history of a prior stroke, a history of a prior KS, status post stenting, history of V-tach in the past, coronary artery disease, obstructive sleep apnea , arthritis, asthma, hypertension. Per the patient, he had a stroke several years ago in 2016, but did not have any residual from that. I did review the notes at the time of his stroke. He came in to the hospital in October 2015 and at that time was complaining of some chest pain and subsequent left leg and arm numbness and weakness. He had a NIH stroke scale of 5 at the time and was given tPA. Subsequent MRI showed no evidence of any lasting effect from the stroke and stroke workup indicated a 33% stenosis involving left internal carotid artery, diminutive middle cerebral arteries. Apparently, he did well, was sent home on Lipitor, aspirin, blood pressure medications. He has been seen in the hospital several times since that time for chest pain symptoms. Review of prior notes also showed that he has had a temporal artery biopsy in the past. Most recently he was admitted on 04/05/17, at that time he came in with chest pain Mobitz type I second degree AV block. He was to be scheduled for a Holter monitor as an outpatient. It was thought that the chest pain could possibly be GI or musculoskeletal in origin. He was discharged home on ranitidine in addition to his other medications. Today, he was not feeling well when he got up, he walked to [employer] to get something to eat. Afterwards, he states that he felt started to feel worse, started to have some chest pain described as substernal, severe in nature, 02/26. He got on the bus and initially got off at the [employer], but the door was locked, so he got back on the bus and subsequently he was let off at the [facility] [employer] where an ambulance was eventually called. The ambulance was called. The ambulance came and the EMS reported that he was having chest pain. He did take a nitroglycerin. He started to develop shaking in his upper extremities. The patient does not have much recall of this event. The EMS felt that he was having seizure-like activity, he had a blank stare. There was no bladder or bowel incontinence per the patient. No tongue biting. He was given Versed 5 mg in the field and subsequently had more shaking in the ER and given Ativan, was somnolent afterwards, but at the time that I saw him, he was more awake and answering questions. He denies any prior history of seizures. No family history of seizures. No history of head trauma or surgery. No history of meningitis. No febrile seizures as a child. When asked about a stroke, he said that he did not have any residual from the stroke. He does have significant disability, has morbid obesity and has a history of repeated chest pain with workups in the past. Since he was brought to the ER and received Ativan, he has had no further episodes of shaking. He is somewhat of a poor historian. I was able to get some information from the EMS records from his admitting provider. Currently he denies any pain. He does have some baseline shortness of breath. He is not having any chest pain currently. He denies any nausea, vomiting, diarrhea, constipation. He does note "feeling bad." No reported fevers or chills. No recent illnesses. PAST MEDICAL HISTORY: Extensive and includes as noted above, also peripheral vascular disease. PAST SURGICAL HISTORY: Includes TKA, inner ear surgery and sinus surgery as well as stenting. CURRENT MEDICATIONS: Include: 1. Dyazide 1 cap p.o. daily. 2. Potassium chloride. 3. Nitroglycerin p.r.n. 4. Nebivolol 10 mg daily. 5. Plavix 75 mg daily. 6. Lipitor 20 mg q.p.m. 7. Aspirin 325 mg daily. ALLERGIES: PENICILLIN, AMOXICILLIN, AUGMENTIN, VINEGAR and MUSHROOMS. FAMILY HISTORY: Significant for mother with CHF, father CHF, brother with KS. SOCIAL HISTORY: Denies tobacco, alcohol or drug use. REVIEW OF SYSTEMS: A 14 organ systems was attempted. It is difficult to get complete answers, but as noted in the HPI, otherwise negative. PHYSICAL EXAMINATION: Vital Signs: Blood pressure 161/96 to 123/75, pulse 70, respiratory rate in the 20s, pulse ox 98% to 99%. In general, he is a well- nourished, well-developed obese gentleman lying in his hospital bed. EEG is currently being performed, but was paused. HEENT: Normocephalic, atraumatic. Sclerae anicteric. Mucous membranes are moist. Oropharynx is clear. Poor dentition. Neck is . No obvious carotid bruits. Chest: Clear to auscultation bilaterally. Cardiovascular: Regular rate and rhythm without murmurs. Abdomen is obese, nontender. Extremities: No clubbing. No obvious cyanosis. He does have changes of vascular disease in his legs to his knees with significant nonpitting edema bilaterally. Neurologic exam, he is somnolent , but awakens, he does answer questions appropriately. His speech is soft, but fluent. No dysarthria. Cranial Nerves: Pupils are equal round and reactive to light. Extraocular muscles are intact. Visual alves are full. Face is symmetric. Sensation is intact. Tongue is midline. Palate raises symmetrically. Hearing is intact bilaterally grossly. He spontaneously moves all extremities antigravity, but has poor effort. There is no obvious drift in the upper and lower extremities. Sensation is diminished to light touch and pinprick in the feet to the knees and bilaterally preserved in the hands and arms. DTRs were 1+ and symmetric at the patella, trace at the ankles, downgoing Babinski's, 1+ at the biceps, brachioradialis and triceps. Finger-to- nose and rapid alternating movements were slow. There was no dysdiadochokinesia. No obvious tremors. No resting tremors noted. Gait was not tested at this time. DIAGNOSTIC STUDIES/LAB DATA: He did have a CT scan, I reviewed the images, shows no acute abnormalities. Lab work includes a CBC with diff, this was essentially normal. Lymphocyte percent of 22.9, monocyte percent of 9.2. INR of 0.98, PTT of 38.3. Complete metabolic profile significant for glucose of 105, lactic acid of 2.1, alk phos of 117, creatine kinase of 324, CK-MB of 2.5, troponin I of 0.01, C-reactive protein of 5.83. Serum alcohol is less than 10. ASSESSMENT AND PLAN: Mr. Glaser is a 51-year-old gentleman who has a history of multiple medical issues as noted above, history of prior stroke with no residual , status post tPA in the past, history of coronary artery disease with myocardial infarction, status post stenting, a history of obstructive sleep apnea, hypertension and hyperlipidemia. Denies any history of seizures and has no seizure risk factors that we are aware of. He presents to the hospital with acute onset of chest pain and subsequently some shaking, possible loss of consciousness. No bladder or bowel incontinence, no tongue biting. Versed was given in the field and he subsequently received 2 more of Ativan in the ER with no further seizure-like activity. He is somnolent likely related to the medication, possibly postictal. The plan is to admit him for observation. I would not start him on any medication at this point as the semiology is very unclear. I am not convinced that this was a seizure. We will get an MRI of his brain to look for any intracranial abnormalities, get an EEG to look for underlying seizure epileptogenic activity, which could change coordinator, put him on seizure precautions and monitor him closely on telemetry as well. He will also be worked up for any cardiac ischemia, although his first set of enzymes is negative. I will continue to follow him closely and make further recommendations as necessary. Thank you for the opportunity to participate in the care of this very interesting patient. [id number]/[facility] #: [id number] MEDHAT
[2017-06-07 05:38] LABS: ABS Basophils 0 10^3/ul (0-0.2); ABS Eosinophils 0.1 10^3/ul (0-0.6); ABS Lymphocytes 1.5 10^3/ul (1.0-4.8); ABS Monocytes 0.5 10^3/ul (0-0.8); ABS Nucleated RBC 0 10^3/ul; Eosinophil % 2.5 % (0-6); Hematocrit 41 % (42-52); Hemoglobin 13.7 g/dl (14.0-18.0); Lymphocyte % 29.6 % (25-47); Mean Corpuscular HGB Conc 33 g/dl (31-36); Mean Corpuscular Hemoglobin 28 pg (27-31); Mean Corpuscular Volume 85 fL (80-94); Mean Platelet Volume 8 um3 (7.4-10.4); Nucleated Red Blood Cells % 0.1; Platelet Count 182 10^3/ul (150-450); Red Blood Count 4.87 10^6/ul (4.0-5.4); Red Cell Distribution Width 14 % (10.5-15); White Blood Count 5.2 10^3/ul (3.5-10.8)
[2017-06-07 05:52] LABS: EGFR Non-African American 79.1 (>60)
--- NOTE | 2017-06-07 08:33 | PN ---
Subjective Date of Service: 06/07/17 Interval History: I received a call last night from hospitalist around 7:30. The patient had another event. He was complaining of chest pain when he suddenly started shaking, some reported tonic-clonic movements, unresponsive during episode. Received a total of 5mg Ativan and activity resolved after several minutes. He was post-ictal/sedated afterwards. I had the hospitalist load him on Keppra 1000mg IV and start 750mg IV q 12 hours. I did speak with Dr. Loredo and from earlier showed no seizure like activity. Since last night, he has had no further seizure like activity. I spoke with nurse who got report from the night nurse. The patient was awake and appropriately responsive this am although sleepy. When I saw him this am, he was sleeping but aroused easily and appropriately responsive. Denies an current pain, denies remembering the seizure. Poor historian states that he has had shaking spells for some time but unclear how long and cannot remember the last one prior to admission yesterday. No risk factors for seizures, no family history of seizures. Objective Active Medications: Acetaminophen (Tylenol Tab*) 650 mg PO Q4H PRN PRN Reason: FEVER/PAIN Albuterol (Ventolin 2.5 Mg/3 Ml Neb.Alem*) 2.5 mg INH Q2H PRN PRN Reason: SOB/WHEEZING Aspirin (Aspirin Tab*) 325 mg PO DAILY [facility] Atorvastatin Calcium (Lipitor*) 20 mg PO QPM [facility] Last Admin: 06/06/17 21:57 Dose: 20 mg Clopidogrel Bisulfate (Plavix Tab*) 75 mg PO DAILY [facility] Heparin Sodium (Porcine) (Heparin Vial(*)) 5,000 units SUBCUT Q12HR [facility] Last Admin: 06/06/17 21:52 Dose: 5,000 units Levetiracetam (Keppra Iv Premix*) 750 mg in 150 mls @ 600 mls/hr IVPB Q12H [facility] Nebivolol (Bystolic Tab (Nf)) 10 mg PO DAILY [facility] Ondansetron HCl (Zofran Inj*) 4 mg IV Q6H PRN PRN Reason: NAUSEA Triamterene/HCTZ (Dyazide Cap*) 1 cap PO DAILY [facility] Vital Signs 06/06/17 06/06/17 06/06/17 16:30 17:00 17:25 Temperature Pulse Rate 67 67 71 Respiratory 15 15 16 Rate Blood Pressure 147/69 (mmHg) O2 Sat by Pulse 99 99 100 Oximetry 06/06/17 06/06/17 06/06/17 17:30 19:00 19:15 Temperature 98.2 F Pulse Rate 67 68 66 Respiratory 16 21 Rate Blood Pressure 140/90 176/112 (mmHg) O2 Sat by Pulse 100 100 99 Oximetry 06/06/17 06/06/17 06/06/17 19:44 19:55 20:00 Temperature 98.0 F Pulse Rate 99 78 74 Respiratory 22 22 Rate Blood Pressure 147/69 152/98 137/92 (mmHg) O2 Sat by Pulse 96 100 100 Oximetry 06/06/17 06/06/17 06/06/17 20:08 20:09 20:11 Temperature Pulse Rate 72 Respiratory 22 21 21 Rate Blood Pressure 148/90 (mmHg) O2 Sat by Pulse 100 Oximetry 06/06/17 06/06/17 06/07/17 22:29 23:42 00:00 Temperature 98.0 F Pulse Rate 70 Respiratory 18 20 Rate Blood Pressure 151/77 (mmHg) O2 Sat by Pulse 97 97 Oximetry 06/07/17 06/07/17 03:13 07:18 Temperature 98.2 F 98.4 F Pulse Rate 68 59 Respiratory 20 20 Rate Blood Pressure 150/78 143/87 (mmHg) O2 Sat by Pulse 100 100 Oximetry Oxygen Devices in Use Now: Nasal Cannula Neurology Exam: General: HEENT: Normocephelic/atraumstic, sclera anicteric, mucous membranes moist Habitus: Morbidly obses Neck: Supple Chest: Clear to auscultation bilaterally Cardiovascular: Regular rate and rhythm without murmurs, rubs, gallops Abdomen: Obese, NT Extremities: Changes of chronic vascular disease in the legs bilaterally Neurological Findings: Awakens, somnolent but appropriate, oriented X 3 Speech: fluent without dysarthria Cranial Nerve: PEERL, EOM intact, VFF, no nystagmus, face symmetric bilaterally , facial sensation intact, hearing intact to finger rub bilaterally, palate elevates symmetrically, tongue midline Motor: Moving all extremities, good effort and resistance 5/5 throughout, normal tone Sensation: Reduced to all modalities in the legs bilaterally Deep Tendon Reflex: 2+ symmetric in the upper/lower extremities, Babinski - upgoing No tremors, finger to nose intact Gait: was able to ambulate with assist this am Result Diagrams: 06/07/17 05:33 06/07/17 05:33 Additional Lab and Data: Lab Results 06/06/17 06/06/17 06/06/17 Range/Units 14:07 14:07 14:07 WBC 5.6 (3.5-10.8) 10^3/ul RBC 5.28 (4.0-5.4) 10^6/ul Hgb 14.9 (14.0-18.0) g/dl Hct 45 (42-52) % MCV 85 (80-94) fL MCH 28 (27-31) pg MCHC 33 (31-36) g/dl RDW 15 (10.5-15) % Plt Count 196 (150-450) 10^3/ul MPV 8 (7.4-10.4) um3 Neut % (Auto) 65.2 (38-83) % Lymph % (Auto) 22.9 L (25-47) % [place] % (Auto) 9.2 H (1-9) % Eos % (Auto) 1.8 (0-6) % Baso % (Auto) 0.9 (0-2) % Absolute Neuts (auto) 3.6 (1.5-7.7) 10^3/ul Absolute Lymphs (auto) 1.3 (1.0-4.8) 10^3/ul Absolute Monos (auto) 0.5 (0-0.8) 10^3/ul Absolute Eos (auto) 0.1 (0-0.6) 10^3/ul Absolute Basos (auto) 0.1 (0-0.2) 10^3/ul Absolute Nucleated RBC 0 10^3/ul Nucleated RBC % 0 INR (Anticoag Therapy) 0.98 (0.77-1.02) APTT 38.3 H (26.0-36.3) seconds Sodium 136 (133-145) mmol/L Potassium 3.6 (3.5-5.0) mmol/L Chloride 104 (101-111) mmol/L Carbon Dioxide 25 (22-32) mmol/L Anion Gap 7 (2-11) mmol/L BUN 13 (6-24) mg/dL Creatinine 1.01 (0.67-1.17) mg/dL Est GFR ( Amer) 99.4 (>60) Est GFR (Non-Af Amer) 77.3 (>60) BUN/Creatinine Ratio 12.9 (8-20) Glucose 105 H (70-100) mg/dL Lactic Acid (0.5-2.0) mmol/L Calcium 9.6 (8.6-10.3) mg/dL Magnesium 1.9 (1.9-2.7) mg/dL Total Bilirubin 0.60 (0.2-1.0) mg/dL AST 21 (13-39) U/L ALT 33 (7-52) U/L Alkaline Phosphatase 117 H (34-104) U/L Total Creatine Kinase 324 H (10-223) U/L CK-MB (CK-2) 2.5 (0.6-6.3) ng/mL Troponin I 0.01 (<0.04) ng/mL C-Reactive Protein 5.83 H (< 5.00) mg/L Total Protein 7.2 (6.4-8.9) g/dL Albumin 4.2 (3.2-5.2) g/dL Globulin 3.0 (2-4) g/dL Albumin/Globulin Ratio 1.4 (1-3) Serum Alcohol < 10 (<10) mg/dL 06/06/17 Range/Units 14:07 WBC (3.5-10.8) 10^3/ul RBC (4.0-5.4) 10^6/ul Hgb (14.0-18.0) g/dl Hct (42-52) % MCV (80-94) fL MCH (27-31) pg MCHC (31-36) g/dl RDW (10.5-15) % Plt Count (150-450) 10^3/ul MPV (7.4-10.4) um3 Neut % (Auto) (38-83) % Lymph % (Auto) (25-47) % [place] % (Auto) (1-9) % Eos % (Auto) (0-6) % Baso % (Auto) (0-2) % Absolute Neuts (auto) (1.5-7.7) 10^3/ul Absolute Lymphs (auto) (1.0-4.8) 10^3/ul Absolute Monos (auto) (0-0.8) 10^3/ul Absolute Eos (auto) (0-0.6) 10^3/ul Absolute Basos (auto) (0-0.2) 10^3/ul Absolute Nucleated RBC 10^3/ul Nucleated RBC % INR (Anticoag Therapy) (0.77-1.02) APTT (26.0-36.3) seconds Sodium (133-145) mmol/L Potassium (3.5-5.0) mmol/L Chloride (101-111) mmol/L Carbon Dioxide (22-32) mmol/L Anion Gap (2-11) mmol/L BUN (6-24) mg/dL Creatinine (0.67-1.17) mg/dL Est GFR ( Amer) (>60) Est GFR (Non-Af Amer) (>60) BUN/Creatinine Ratio (8-20) Glucose (70-100) mg/dL Lactic Acid 2.1 H* (0.5-2.0) mmol/L Calcium (8.6-10.3) mg/dL Magnesium (1.9-2.7) mg/dL Total Bilirubin (0.2-1.0) mg/dL AST (13-39) U/L ALT (7-52) U/L Alkaline Phosphatase (34-104) U/L Total Creatine Kinase (10-223) U/L CK-MB (CK-2) (0.6-6.3) ng/mL Troponin I (<0.04) ng/mL C-Reactive Protein (< 5.00) mg/L Total Protein (6.4-8.9) g/dL Albumin (3.2-5.2) g/dL Globulin (2-4) g/dL Albumin/Globulin Ratio (1-3) Serum Alcohol (<10) mg/dL Assessment/Plan 51 year old with a history of HTN, CAD with reported stroke in past, no deficits , PVD, RANDEE, mobid obesity, presented yesterday after developing chest pain, subsequent "shaking" and seizure like activity receiving Versed in the field and Ativan in ER, post-ictal/sedated afterwards. EEG in ER showed no epileptiform activity. MRI was personally reviewed and showed no acute changes. Had another event last night on the floor, received Ativan and was started on Keppra, loaded with 1000mg and started 750mg BID. No risk factors for seizures. Has a history of "shaking" spells but poor historian and cannot give specific information. 1. New onset seizures. Unclear etiology but he may have been having these for quite some time given his history. EEG and MRI showed no obvious abnormalities although he does report a history of stroke in the past. His events seem to be associated with chest pain as well, which raises the possibility of a non- epileptic type events. 2. While the semiology is atypical, given the nature of the events, history of CAD (do not want to stress his heart) and now multiple episodes with possible episodes in the past, I am inclined to continue him on Keppra: 750mg BID. Can switch to PO once he is stable and taking PO safely. 3. Should he have another event in house, will consider continuous monitoring, otherwise, I would like to see him back as an outpatient and consider 5 day video EEG in the hopes we can capture an episode. 4. Continue Seizure precautions in house, with Ativan as necessary for seizure activity 5. Needs continued monitoring as an outpatient for his RANDEE, CPAP 6. Cardiac workup per hospitalist. PVCs on tele but no major events. Troponins are negative. 7. If he improves to baseline and is stable today, I am ok with discharge later today or tomorrow on Keppra 750mg po bid. Please arrange follow up in my clinic in 4 weeks 8. Patient should be instructed not to drive for now, avoid heights, heavy machinery, open flames, swimming alone and should take only showers and no baths.
[2017-06-07] MEDS: IVPREMIX IVPB SCH ×2 (09:03→21:43)
[2017-06-07] MEDS: Heparin VIAL(*) 5000 UNITS/ML VIAL (FIVE THOUSAND) SUBCUT SCH ×2 (09:03→21:33)
[2017-06-07] MEDS: Aspirin TAB* 325 MG PO SCH (09:03)
[2017-06-07] MEDS: Clopidogrel TAB* 75 MG PO SCH (09:03)
[2017-06-07] MEDS: Triamterene/HCTZ 37.5-25 MG* CAP PO SCH (09:03)
[2017-06-07] MEDS: CMCS Nebivolol TAB (NF) 2.5 MG TAB PO SCH (09:03)
[2017-06-07] MEDS: LEVETIRACETAM 500 MG IVPB SCH ×2 (09:03→21:43)
--- NOTE | 2017-06-07 15:09 | PN ---
Subjective Date of Service: 06/07/17 Interval History: C/O weak legs. He denies loosing concoiousness during his shaking spells. Objective Active Medications: Acetaminophen (Tylenol Tab*) 650 mg PO Q4H PRN PRN Reason: FEVER/PAIN Albuterol (Ventolin 2.5 Mg/3 Ml Neb.Alem*) 2.5 mg INH Q2H PRN PRN Reason: SOB/WHEEZING Aspirin (Aspirin Tab*) 325 mg PO DAILY [facility] Last Admin: 06/07/17 09:03 Dose: 325 mg Atorvastatin Calcium (Lipitor*) 20 mg PO QPM [facility] Last Admin: 06/06/17 21:57 Dose: 20 mg Clopidogrel Bisulfate (Plavix Tab*) 75 mg PO DAILY [facility] Last Admin: 06/07/17 09:03 Dose: 75 mg Heparin Sodium (Porcine) (Heparin Vial(*)) 5,000 units SUBCUT Q12HR [facility] Last Admin: 06/07/17 09:03 Dose: 5,000 units Levetiracetam (Keppra Iv Premix*) 750 mg in 150 mls @ 600 mls/hr IVPB Q12H [facility] Last Admin: 06/07/17 09:03 Dose: 600 mls/hr Nebivolol (Bystolic Tab (Nf)) 10 mg PO DAILY [facility] Last Admin: 06/07/17 09:03 Dose: 10 mg Ondansetron HCl (Zofran Inj*) 4 mg IV Q6H PRN PRN Reason: NAUSEA Triamterene/HCTZ (Dyazide Cap*) 1 cap PO DAILY [facility] Last Admin: 06/07/17 09:03 Dose: 1 cap Vital Signs - 8 hr 06/07/17 06/07/17 06/07/17 07:18 10:37 10:54 Temperature 98.4 F 98.1 F Pulse Rate 59 68 64 Respiratory 20 18 20 Rate Blood Pressure 143/87 141/79 (mmHg) O2 Sat by Pulse 100 100 98 Oximetry Oxygen Devices in Use Now: Nasal Cannula Appearance: Alert, partly up in bed. Neutral affect. Looks comfortable. Eyes: No Scleral Icterus Ears/Nose/Mouth/Throat: Clear Oropharnyx, Mucous Membranes Moist, - - His uvula is slightly prominent, sl red, not clearly abnormal. Neck: NL Appearance and Movements; NL JVP, No Thyroid Enlargement, Masses Respiratory: Symmetrical Chest Expansion and Respiratory Effort, Clear to Auscultation, Clear to Percussion Cardiovascular: NL Sounds; No Murmurs; No JVD, RRR, No Edema, - Extremities: No Clubbing, Cyanosis, - - Tr to 1+ edema BL Skin: No Rash or Ulcers, No Nodules or Sclerosis, - Neurological: Alert and Oriented x 3, NL Sensation Result Diagrams: 06/07/17 05:33 06/07/17 05:33 Additional Lab and Data: Lab Results 06/06/17 06/06/17 06/06/17 Range/Units 14:07 14:07 14:07 WBC 5.6 (3.5-10.8) 10^3/ul RBC 5.28 (4.0-5.4) 10^6/ul Hgb 14.9 (14.0-18.0) g/dl Hct 45 (42-52) % MCV 85 (80-94) fL MCH 28 (27-31) pg MCHC 33 (31-36) g/dl RDW 15 (10.5-15) % Plt Count 196 (150-450) 10^3/ul MPV 8 (7.4-10.4) um3 Neut % (Auto) 65.2 (38-83) % Lymph % (Auto) 22.9 L (25-47) % [place] % (Auto) 9.2 H (1-9) % Eos % (Auto) 1.8 (0-6) % Baso % (Auto) 0.9 (0-2) % Absolute Neuts (auto) 3.6 (1.5-7.7) 10^3/ul Absolute Lymphs (auto) 1.3 (1.0-4.8) 10^3/ul Absolute Monos (auto) 0.5 (0-0.8) 10^3/ul Absolute Eos (auto) 0.1 (0-0.6) 10^3/ul Absolute Basos (auto) 0.1 (0-0.2) 10^3/ul Absolute Nucleated RBC 0 10^3/ul Nucleated RBC % 0 INR (Anticoag Therapy) 0.98 (0.77-1.02) APTT 38.3 H (26.0-36.3) seconds Sodium 136 (133-145) mmol/L Potassium 3.6 (3.5-5.0) mmol/L Chloride 104 (101-111) mmol/L Carbon Dioxide 25 (22-32) mmol/L Anion Gap 7 (2-11) mmol/L BUN 13 (6-24) mg/dL Creatinine 1.01 (0.67-1.17) mg/dL Est GFR ( Amer) 99.4 (>60) Est GFR (Non-Af Amer) 77.3 (>60) BUN/Creatinine Ratio 12.9 (8-20) Glucose 105 H (70-100) mg/dL Lactic Acid (0.5-2.0) mmol/L Calcium 9.6 (8.6-10.3) mg/dL Magnesium 1.9 (1.9-2.7) mg/dL Total Bilirubin 0.60 (0.2-1.0) mg/dL AST 21 (13-39) U/L ALT 33 (7-52) U/L Alkaline Phosphatase 117 H (34-104) U/L Total Creatine Kinase 324 H (10-223) U/L CK-MB (CK-2) 2.5 (0.6-6.3) ng/mL Troponin I 0.01 (<0.04) ng/mL C-Reactive Protein 5.83 H (< 5.00) mg/L Total Protein 7.2 (6.4-8.9) g/dL Albumin 4.2 (3.2-5.2) g/dL Globulin 3.0 (2-4) g/dL Albumin/Globulin Ratio 1.4 (1-3) Serum Alcohol < 10 (<10) mg/dL 06/06/17 Range/Units 14:07 WBC (3.5-10.8) 10^3/ul RBC (4.0-5.4) 10^6/ul Hgb (14.0-18.0) g/dl Hct (42-52) % MCV (80-94) fL MCH (27-31) pg MCHC (31-36) g/dl RDW (10.5-15) % Plt Count (150-450) 10^3/ul MPV (7.4-10.4) um3 Neut % (Auto) (38-83) % Lymph % (Auto) (25-47) % [place] % (Auto) (1-9) % Eos % (Auto) (0-6) % Baso % (Auto) (0-2) % Absolute Neuts (auto) (1.5-7.7) 10^3/ul Absolute Lymphs (auto) (1.0-4.8) 10^3/ul Absolute Monos (auto) (0-0.8) 10^3/ul Absolute Eos (auto) (0-0.6) 10^3/ul Absolute Basos (auto) (0-0.2) 10^3/ul Absolute Nucleated RBC 10^3/ul Nucleated RBC % INR (Anticoag Therapy) (0.77-1.02) APTT (26.0-36.3) seconds Sodium (133-145) mmol/L Potassium (3.5-5.0) mmol/L Chloride (101-111) mmol/L Carbon Dioxide (22-32) mmol/L Anion Gap (2-11) mmol/L BUN (6-24) mg/dL Creatinine (0.67-1.17) mg/dL Est GFR ( Amer) (>60) Est GFR (Non-Af Amer) (>60) BUN/Creatinine Ratio (8-20) Glucose (70-100) mg/dL Lactic Acid 2.1 H* (0.5-2.0) mmol/L Calcium (8.6-10.3) mg/dL Magnesium (1.9-2.7) mg/dL Total Bilirubin (0.2-1.0) mg/dL AST (13-39) U/L ALT (7-52) U/L Alkaline Phosphatase (34-104) U/L Total Creatine Kinase (10-223) U/L CK-MB (CK-2) (0.6-6.3) ng/mL Troponin I (<0.04) ng/mL C-Reactive Protein (< 5.00) mg/L Total Protein (6.4-8.9) g/dL Albumin (3.2-5.2) g/dL Globulin (2-4) g/dL Albumin/Globulin Ratio (1-3) Serum Alcohol (<10) mg/dL Assess/Plan/Problems-Billing 51 year old with a history of HTN, CAD with reported stroke in past, no deficits , PVD, RANDEE, mobid obesity, presented yesterday after developing chest pain, subsequent "shaking" and seizure like activity receiving Versed in the field and Ativan in ER, post-ictal/sedated afterwards. EEG in ER showed no epileptiform activity. MRI was personally reviewed and showed no acute changes. Had another event last night on the floor, received Ativan and was started on Keppra, loaded with 1000mg and started 750mg BID. No risk factors for seizures. Has a history of "shaking" spells but poor historian and cannot give specific information. 1. New onset seizures. Unclear etiology but he may have been having these for quite some time given his history. EEG and MRI showed no obvious abnormalities although he does report a history of stroke in the past. His events seem to be associated with chest pain as well, which raises the possibility of a non- epileptic type events. 2. While the semiology is atypical, given the nature of the events, history of CAD (do not want to stress his heart) and now multiple episodes with possible episodes in the past, I am inclined to continue him on Keppra: 750mg BID. Can switch to PO once he is stable and taking PO safely. 3. Should he have another event in house, will consider continuous monitoring, otherwise, I would like to see him back as an outpatient and consider 5 day video EEG in the hopes we can capture an episode. 4. Continue Seizure precautions in house, with Ativan as necessary for seizure activity 5. Needs continued monitoring as an outpatient for his RANDEE, CPAP 6. Cardiac workup per hospitalist. PVCs on tele but no major events. Troponins are negative. 7. If he improves to baseline and is stable today, I am ok with discharge later today or tomorrow on Keppra 750mg po bid. Please arrange follow up in my clinic in 4 weeks 8. Patient should be instructed not to drive for now, avoid heights, heavy machinery, open flames, swimming alone and should take only showers and no baths. - Patient Problems (1) Chest pain Current Visit: No Status: Acute Priority: Medium Onset Date: 01/31/14 Code(s): R07.9 - CHEST PAIN, UNSPECIFIED SNOMED Code(s): 30924215 Comment: Atypical chest pain, some residual "pressure" 06/07/17. Doubt cardiac etiology. Continue ASA, clopidogrel, BB, statin. History of [place]. (2) Sleep apnea Current Visit: Yes Status: Acute Code(s): G47.30 - SLEEP APNEA, UNSPECIFIED SNOMED Code(s): 78151112 Comment: O2 sat 96% on RA by me. I asked family to bring in his CPAP. (3) Episode of shaking Current Visit: Yes Status: Acute Code(s): R25.1 - TREMOR, UNSPECIFIED SNOMED Code(s): 30546702 Comment: Multiple episodes. Doubt seizure as no LOC. EEG report pending. MRI unremarkable. (4) Morbid obesity Current Visit: No Status: Acute Code(s): E66.01 - MORBID (SEVERE) OBESITY DUE TO EXCESS CALORIES SNOMED Code(s): 832868536 Comment: BMI 49.5.
[2017-06-07] MEDS: Atorvastatin* 20 MG TAB PO SCH (17:32)
[2017-06-07] MEDS ORDERED: LORazepam INJ* 2 MG/ML 1 ML VIAL IV PUSH ONE ×3 (21:16→22:00)
[2017-06-07] MEDS ORDERED: LORazepam INJ* 2 MG/ML 1 ML VIAL ONE (21:18)
[2017-06-07] MEDS ORDERED: levETIRAcetam IV* 250 MG in NS 0.9% 100 ML* 100 ML IVPB ONE (22:00)
--- NOTE | 2017-06-07 23:51 | EEG ---
ELECTROENCEPHALOGRAPHY: DATE OF STUDY: 06/06/17 LOCATION: The patient was in the emergency room. ORDERING PROVIDER: Justin Bains NP CLINICAL PROBLEM: This is a 51-year-old man, who came into the ER after an episode of 10/10 chest pa in associated with difficulty breathing. EMS was called and upon their arrival, he apparently had an episode of seizure-like activity with his eyes open associated with jaw, head, arm, and leg jerking movements. He would inconsistently follow EMS commands during this. On arrival to the hospital, he had additional seizure-like activity. He was reportedly not able to speak, but was able to follow so me simple commands. He received 2 mg of Ativan prior to this recording. Just prior to the start of this recording, he apparently had another episode witnessed by the nurse in the emergency department. EEG is requested to evaluate for epileptiform abnormalities. MEDICATIONS: Only recently acutely given medications were listed including Ativan 2 mg and Versed 5 mg. REPORT: The waking background showed appropriate organization with clearly defined anterior to poste rior voltage and frequency gradients. There was a well-defined posterior dominant rhythm of 10 Hz, w hich was symmetrical and showed normal reactivity. Anteriorly, there is an expected pattern of lower voltage, irregular, mixed faster frequencies. Hyperventilation and photic stimulation were not performed. Attenuation of the occipital rhythm accompanied drowsiness, but there were no well- developed sleep s pindles to indicate the transition to stage 2 sleep. There was excess beta activity noted, consisten t with recently administered medications. Throughout the recording, there were no epileptiform discharges, focal features, paroxysmal features, or a significant interhemispheric asymmetries. I note that the technologist made mention of brief r ight facial twitching as well as some head twitching, which lasted for approximately 20 seconds durin g the recording. These movements were not associated with any changes in the EEG. IMPRESSION: This is a normal waking and drowsy EEG. There are no epileptiform abnormalities. Exces s beta activity is an expected finding in the setting of recent benzodiazepine use. [id number]/[facility] #: [id number]
--- NOTE | 2017-06-08 08:56 | PN ---
Subjective Date of Service: 06/08/17 Interval History: C/O chest pain, same as before. Objective Active Medications: Acetaminophen (Tylenol Tab*) 650 mg PO Q4H PRN PRN Reason: FEVER/PAIN Albuterol (Ventolin 2.5 Mg/3 Ml Neb.Alem*) 2.5 mg INH Q2H PRN PRN Reason: SOB/WHEEZING Aspirin (Aspirin Tab*) 325 mg PO DAILY [facility] Last Admin: 06/07/17 09:03 Dose: 325 mg Atorvastatin Calcium (Lipitor*) 20 mg PO QPM [facility] Last Admin: 06/07/17 17:32 Dose: 20 mg Clopidogrel Bisulfate (Plavix Tab*) 75 mg PO DAILY [facility] Last Admin: 06/07/17 09:03 Dose: 75 mg Heparin Sodium (Porcine) (Heparin Vial(*)) 5,000 units SUBCUT Q12HR [facility] Last Admin: 06/07/17 21:33 Dose: 5,000 units Levetiracetam 1,000 mg/ Sodium (Chloride) 110 mls @ 440 mls/hr IVPB Q12H [facility] Last Admin: 06/08/17 08:42 Dose: 440 mls/hr Nebivolol (Bystolic Tab (Nf)) 10 mg PO DAILY [facility] Last Admin: 06/07/17 09:03 Dose: 10 mg Ondansetron HCl (Zofran Inj*) 4 mg IV Q6H PRN PRN Reason: NAUSEA Triamterene/HCTZ (Dyazide Cap*) 1 cap PO DAILY [facility] Last Admin: 06/07/17 09:03 Dose: 1 cap Vital Signs - 8 hr 06/08/17 06/08/17 06/08/17 01:00 01:01 01:30 Pulse Rate 61 61 58 Respiratory 13 20 17 Rate Blood Pressure 124/84 (mmHg) O2 Sat by Pulse 98 98 98 Oximetry 06/08/17 06/08/17 06/08/17 02:00 02:01 02:30 Pulse Rate 67 68 62 Respiratory 18 18 21 Rate Blood Pressure 130/91 (mmHg) O2 Sat by Pulse 96 94 97 Oximetry 06/08/17 06/08/17 06/08/17 03:00 03:13 03:30 Pulse Rate 61 60 61 Respiratory 23 18 15 Rate Blood Pressure 140/94 (mmHg) O2 Sat by Pulse 96 97 98 Oximetry 06/08/17 06/08/17 06/08/17 04:00 04:30 05:00 Pulse Rate 62 60 59 Respiratory 24 20 15 Rate Blood Pressure 124/91 137/100 (mmHg) O2 Sat by Pulse 96 98 98 Oximetry 06/08/17 06/08/17 06/08/17 05:30 06:00 08:00 Pulse Rate 58 Respiratory 25 25 15 Rate Blood Pressure (mmHg) O2 Sat by Pulse 97 Oximetry Oxygen Devices in Use Now: Nasal Cannula Appearance: Alert, supine on ICU bed. Neutral affect. Looks comfortable. Eyes: No Scleral Icterus Neck: NL Appearance and Movements; NL JVP, No Thyroid Enlargement, Masses Respiratory: Symmetrical Chest Expansion and Respiratory Effort, Clear to Auscultation, Clear to Percussion Cardiovascular: NL Sounds; No Murmurs; No JVD, RRR, No Edema, - Extremities: No Edema, No Clubbing, Cyanosis, - Skin: No Rash or Ulcers, No Nodules or Sclerosis, - Neurological: Alert and Oriented x 3, NL Sensation Result Diagrams: 06/07/17 05:33 06/07/17 05:33 Additional Lab and Data: Lab Results 06/06/17 06/06/17 06/06/17 Range/Units 14:07 14:07 14:07 WBC 5.6 (3.5-10.8) 10^3/ul RBC 5.28 (4.0-5.4) 10^6/ul Hgb 14.9 (14.0-18.0) g/dl Hct 45 (42-52) % MCV 85 (80-94) fL MCH 28 (27-31) pg MCHC 33 (31-36) g/dl RDW 15 (10.5-15) % Plt Count 196 (150-450) 10^3/ul MPV 8 (7.4-10.4) um3 Neut % (Auto) 65.2 (38-83) % Lymph % (Auto) 22.9 L (25-47) % [place] % (Auto) 9.2 H (1-9) % Eos % (Auto) 1.8 (0-6) % Baso % (Auto) 0.9 (0-2) % Absolute Neuts (auto) 3.6 (1.5-7.7) 10^3/ul Absolute Lymphs (auto) 1.3 (1.0-4.8) 10^3/ul Absolute Monos (auto) 0.5 (0-0.8) 10^3/ul Absolute Eos (auto) 0.1 (0-0.6) 10^3/ul Absolute Basos (auto) 0.1 (0-0.2) 10^3/ul Absolute Nucleated RBC 0 10^3/ul Nucleated RBC % 0 INR (Anticoag Therapy) 0.98 (0.77-1.02) APTT 38.3 H (26.0-36.3) seconds Sodium 136 (133-145) mmol/L Potassium 3.6 (3.5-5.0) mmol/L Chloride 104 (101-111) mmol/L Carbon Dioxide 25 (22-32) mmol/L Anion Gap 7 (2-11) mmol/L BUN 13 (6-24) mg/dL Creatinine 1.01 (0.67-1.17) mg/dL Est GFR ( Amer) 99.4 (>60) Est GFR (Non-Af Amer) 77.3 (>60) BUN/Creatinine Ratio 12.9 (8-20) Glucose 105 H (70-100) mg/dL Lactic Acid (0.5-2.0) mmol/L Calcium 9.6 (8.6-10.3) mg/dL Magnesium 1.9 (1.9-2.7) mg/dL Total Bilirubin 0.60 (0.2-1.0) mg/dL AST 21 (13-39) U/L ALT 33 (7-52) U/L Alkaline Phosphatase 117 H (34-104) U/L Total Creatine Kinase 324 H (10-223) U/L CK-MB (CK-2) 2.5 (0.6-6.3) ng/mL Troponin I 0.01 (<0.04) ng/mL C-Reactive Protein 5.83 H (< 5.00) mg/L Total Protein 7.2 (6.4-8.9) g/dL Albumin 4.2 (3.2-5.2) g/dL Globulin 3.0 (2-4) g/dL Albumin/Globulin Ratio 1.4 (1-3) Serum Alcohol < 10 (<10) mg/dL 06/06/17 Range/Units 14:07 WBC (3.5-10.8) 10^3/ul RBC (4.0-5.4) 10^6/ul Hgb (14.0-18.0) g/dl Hct (42-52) % MCV (80-94) fL MCH (27-31) pg MCHC (31-36) g/dl RDW (10.5-15) % Plt Count (150-450) 10^3/ul MPV (7.4-10.4) um3 Neut % (Auto) (38-83) % Lymph % (Auto) (25-47) % [place] % (Auto) (1-9) % Eos % (Auto) (0-6) % Baso % (Auto) (0-2) % Absolute Neuts (auto) (1.5-7.7) 10^3/ul Absolute Lymphs (auto) (1.0-4.8) 10^3/ul Absolute Monos (auto) (0-0.8) 10^3/ul Absolute Eos (auto) (0-0.6) 10^3/ul Absolute Basos (auto) (0-0.2) 10^3/ul Absolute Nucleated RBC 10^3/ul Nucleated RBC % INR (Anticoag Therapy) (0.77-1.02) APTT (26.0-36.3) seconds Sodium (133-145) mmol/L Potassium (3.5-5.0) mmol/L Chloride (101-111) mmol/L Carbon Dioxide (22-32) mmol/L Anion Gap (2-11) mmol/L BUN (6-24) mg/dL Creatinine (0.67-1.17) mg/dL Est GFR ( Amer) (>60) Est GFR (Non-Af Amer) (>60) BUN/Creatinine Ratio (8-20) Glucose (70-100) mg/dL Lactic Acid 2.1 H* (0.5-2.0) mmol/L Calcium (8.6-10.3) mg/dL Magnesium (1.9-2.7) mg/dL Total Bilirubin (0.2-1.0) mg/dL AST (13-39) U/L ALT (7-52) U/L Alkaline Phosphatase (34-104) U/L Total Creatine Kinase (10-223) U/L CK-MB (CK-2) (0.6-6.3) ng/mL Troponin I (<0.04) ng/mL C-Reactive Protein (< 5.00) mg/L Total Protein (6.4-8.9) g/dL Albumin (3.2-5.2) g/dL Globulin (2-4) g/dL Albumin/Globulin Ratio (1-3) Serum Alcohol (<10) mg/dL Microbiology and Other Data: Microbiology 06/07/17 22:31 Nasal Screen MRSA (PCR)([facility]) - Final Nasal Mrsa Negative Assess/Plan/Problems-Billing 51 year old with a history of HTN, CAD with reported stroke in past, no deficits , PVD, RANDEE, mobid obesity, presented yesterday after developing chest pain, subsequent "shaking" and seizure like activity receiving Versed in the field and Ativan in ER, post-ictal/sedated afterwards. EEG in ER showed no epileptiform activity. MRI was personally reviewed and showed no acute changes. Had another event last night on the floor, received Ativan and was started on Keppra, loaded with 1000mg and started 750mg BID. No risk factors for seizures. Has a history of "shaking" spells but poor historian and cannot give specific information. 1. New onset seizures. Unclear etiology but he may have been having these for quite some time given his history. EEG and MRI showed no obvious abnormalities although he does report a history of stroke in the past. His events seem to be associated with chest pain as well, which raises the possibility of a non- epileptic type events. 2. While the semiology is atypical, given the nature of the events, history of CAD (do not want to stress his heart) and now multiple episodes with possible episodes in the past, I am inclined to continue him on Keppra: 750mg BID. Can switch to PO once he is stable and taking PO safely. 3. Should he have another event in house, will consider continuous monitoring, otherwise, I would like to see him back as an outpatient and consider 5 day video EEG in the hopes we can capture an episode. 4. Continue Seizure precautions in house, with Ativan as necessary for seizure activity 5. Needs continued monitoring as an outpatient for his RANDEE, CPAP 6. Cardiac workup per hospitalist. PVCs on tele but no major events. Troponins are negative. 7. If he improves to baseline and is stable today, I am ok with discharge later today or tomorrow on Keppra 750mg po bid. Please arrange follow up in my clinic in 4 weeks 8. Patient should be instructed not to drive for now, avoid heights, heavy machinery, open flames, swimming alone and should take only showers and no baths. - Patient Problems (1) Chest pain Current Visit: No Status: Acute Priority: Medium Onset Date: 01/31/14 Code(s): R07.9 - CHEST PAIN, UNSPECIFIED SNOMED Code(s): 34822100 Comment: Atypical chest pain, some residual "pressure" 06/07/17. Doubt cardiac etiology. Continue ASA, clopidogrel, BB, statin. History of [place], stent. Discussed with Dr. Ocampo, his primary breaker layer. Chest pain is a very frequent c/o for this patient. (2) Sleep apnea Current Visit: Yes Status: Acute Code(s): G47.30 - SLEEP APNEA, UNSPECIFIED SNOMED Code(s): 90031270 Comment: O2 sat 96% on RA by me. I asked family to bring in his CPAP. Pt tolerated hospital CPAP night of 06/07. (3) Episode of shaking Current Visit: Yes Status: Acute Code(s): R25.1 - TREMOR, UNSPECIFIED SNOMED Code(s): 96043556 Comment: Multiple episodes. Doubt seizure as no LOC. EEG report pending. MRI unremarkable. Another episode of unresponsiveness noted on 4S, pt transferred to ICU and levetiracetam started. I will discuss with the neurologist. (4) Morbid obesity Current Visit: No Status: Acute Code(s): E66.01 - MORBID (SEVERE) OBESITY DUE TO EXCESS CALORIES SNOMED Code(s): 573403284 Comment: BMI 49.5.
[2017-06-08] MEDS ORDERED: levETIRAcetam IV* 1,000 MG in NS 0.9% 100 ML* 100 ML IVPB SCH (09:00)
[2017-06-08] MEDS: Clopidogrel TAB* 75 MG PO SCH (09:05)
[2017-06-08] MEDS: Aspirin TAB* 325 MG PO SCH (09:05)
[2017-06-08] MEDS: CMCS Nebivolol TAB (NF) 2.5 MG TAB PO SCH (09:05)
[2017-06-08] MEDS: Heparin VIAL(*) 5000 UNITS/ML VIAL (FIVE THOUSAND) SUBCUT SCH ×2 (09:05→20:08)
[2017-06-08] MEDS: Triamterene/HCTZ 37.5-25 MG* CAP PO SCH (09:39)
[2017-06-08] MEDS ORDERED: Benzocaine/Menthol LOZ* 1 LOZENGE PO PRN (12:22)
[2017-06-08] MEDS: Atorvastatin* 20 MG TAB PO SCH (16:53)
[2017-06-08] MEDS: levETIRAcetam TAB* 500 MG PO SCH (20:08)
--- NOTE | 2017-06-09 01:28 | PN ---
NEUROLOGICAL FOLLOWUP NOTE: DATE OF SERVICE: 06/08/17 PATIENT OF: Dr. Pacheco. HISTORY: Cas is a 51-year-old man who I was called last night about for a brief seizure. We increased his Keppra at that time to 1000 mg and increased his dose to 1000 mg twice a day. He has had no further spells or seizures since then. This spell was described as a staring spell with bilateral leg jerking. Some of these events seem to be associated with chest pain. He also denies any history of depression. MEDICATIONS: 1. Keppra 1000 mg b.i.d. 2. Dyazide 1 cap a day. 3. Ventolin 2.5 mg inhaler p.r.n. 4. Aspirin 325 mg daily. 5. Lipitor 20 mg daily. 6. Plavix 75 mg daily. 7. Bystolic 10 mg daily. PHYSICAL EXAMINATION: Temp 97.7, pulse 58, respirations 18, blood pressure 137/ 100. He is alert and oriented with normal speech and comprehension. Cranial nerves II through XII are intact. Motor exam revealed normal tone and strength. Chest: Clear. Cardiovascular: Regular rate and rhythm. Abdomen: Soft, positive bowel sounds. He is obese. ASSESSMENT AND PLAN: Mr. Glaser had another event which was witnessed and thought to be a seizure. We have increased his Keppra, which should be within therapeutic range and he is a big man. I reviewed with him the side effects of Keppra including depression. I discussed with the hospitalist that if he has further events in house, we will consider video EEG monitoring to determine whether they are truly secondary to epileptiform discharges or whether these would represent a pseudoseizure picture. If he has no further spells, then he can go home in the near future. He will need followup with Dr. Loaiza in 4 to 6 weeks with the Keppra level before that. Thank you for sharing his case. [id number]/[facility] #: [id number] [facility]
[2017-06-09] MEDS: Triamterene/HCTZ 37.5-25 MG* CAP PO SCH (08:48)
[2017-06-09] MEDS: levETIRAcetam TAB* 500 MG PO SCH ×2 (08:48→20:57)
[2017-06-09] MEDS: CMCS Nebivolol TAB (NF) 2.5 MG TAB PO SCH (08:48)
[2017-06-09] MEDS: Aspirin TAB* 325 MG PO SCH (08:48)
[2017-06-09] MEDS: Clopidogrel TAB* 75 MG PO SCH (08:48)
[2017-06-09] MEDS: Heparin VIAL(*) 5000 UNITS/ML VIAL (FIVE THOUSAND) SUBCUT SCH ×2 (08:49→20:56)
--- NOTE | 2017-06-09 12:04 | PN ---
Subjective Date of Service: 06/09/17 Interval History: No more episodes of LOC. No new c/o. Pt uncertain how well he could walk today. Objective Active Medications: Acetaminophen (Tylenol Tab*) 650 mg PO Q4H PRN PRN Reason: FEVER/PAIN Last Admin: 06/08/17 17:34 Dose: 650 mg Albuterol (Ventolin 2.5 Mg/3 Ml Neb.Alem*) 2.5 mg INH Q2H PRN PRN Reason: SOB/WHEEZING Aspirin (Aspirin Tab*) 325 mg PO DAILY [facility] Last Admin: 06/09/17 08:48 Dose: 325 mg Atorvastatin Calcium (Lipitor*) 20 mg PO QPM [facility] Last Admin: 06/08/17 16:53 Dose: 20 mg Clopidogrel Bisulfate (Plavix Tab*) 75 mg PO DAILY [facility] Last Admin: 06/09/17 08:48 Dose: 75 mg Heparin Sodium (Porcine) (Heparin Vial(*)) 5,000 units SUBCUT Q12HR [facility] Last Admin: 06/09/17 08:49 Dose: 5,000 units Levetiracetam (Keppra Tab*) 1,000 mg PO BID [facility] Last Admin: 06/09/17 08:48 Dose: 1,000 mg Nebivolol (Bystolic Tab (Nf)) 10 mg PO DAILY [facility] Last Admin: 06/09/17 08:48 Dose: 10 mg Ondansetron HCl (Zofran Inj*) 4 mg IV Q6H PRN PRN Reason: NAUSEA Throat Lozenges (Chloraseptic Letha*) 1 letha PO Q6H PRN PRN Reason: SORE THROAT Last Admin: 06/08/17 13:09 Dose: 1 letha Triamterene/HCTZ (Dyazide Cap*) 1 cap PO DAILY [facility] Last Admin: 06/09/17 08:48 Dose: 1 cap Vital Signs - 8 hr 06/09/17 06/09/17 06/09/17 08:00 08:04 08:43 Temperature 98.0 F Pulse Rate 65 62 Respiratory 18 16 16 Rate Blood Pressure 155/67 (mmHg) O2 Sat by Pulse 97 97 Oximetry Oxygen Devices in Use Now: None Appearance: Alert, sitting on the edge o f his bed. In good spirits. Looks comfortable. Eyes: No Scleral Icterus Respiratory: Symmetrical Chest Expansion and Respiratory Effort, Clear to Auscultation, Clear to Percussion Cardiovascular: NL Sounds; No Murmurs; No JVD, RRR, No Edema, - Extremities: No Edema, No Clubbing, Cyanosis, - Skin: No Rash or Ulcers, No Nodules or Sclerosis, - Neurological: Alert and Oriented x 3, NL Sensation Result Diagrams: 06/07/17 05:33 06/07/17 05:33 Additional Lab and Data: Lab Results 06/06/17 06/06/17 06/06/17 Range/Units 14:07 14:07 14:07 WBC 5.6 (3.5-10.8) 10^3/ul RBC 5.28 (4.0-5.4) 10^6/ul Hgb 14.9 (14.0-18.0) g/dl Hct 45 (42-52) % MCV 85 (80-94) fL MCH 28 (27-31) pg MCHC 33 (31-36) g/dl RDW 15 (10.5-15) % Plt Count 196 (150-450) 10^3/ul MPV 8 (7.4-10.4) um3 Neut % (Auto) 65.2 (38-83) % Lymph % (Auto) 22.9 L (25-47) % [place] % (Auto) 9.2 H (1-9) % Eos % (Auto) 1.8 (0-6) % Baso % (Auto) 0.9 (0-2) % Absolute Neuts (auto) 3.6 (1.5-7.7) 10^3/ul Absolute Lymphs (auto) 1.3 (1.0-4.8) 10^3/ul Absolute Monos (auto) 0.5 (0-0.8) 10^3/ul Absolute Eos (auto) 0.1 (0-0.6) 10^3/ul Absolute Basos (auto) 0.1 (0-0.2) 10^3/ul Absolute Nucleated RBC 0 10^3/ul Nucleated RBC % 0 INR (Anticoag Therapy) 0.98 (0.77-1.02) APTT 38.3 H (26.0-36.3) seconds Sodium 136 (133-145) mmol/L Potassium 3.6 (3.5-5.0) mmol/L Chloride 104 (101-111) mmol/L Carbon Dioxide 25 (22-32) mmol/L Anion Gap 7 (2-11) mmol/L BUN 13 (6-24) mg/dL Creatinine 1.01 (0.67-1.17) mg/dL Est GFR ( Amer) 99.4 (>60) Est GFR (Non-Af Amer) 77.3 (>60) BUN/Creatinine Ratio 12.9 (8-20) Glucose 105 H (70-100) mg/dL Lactic Acid (0.5-2.0) mmol/L Calcium 9.6 (8.6-10.3) mg/dL Magnesium 1.9 (1.9-2.7) mg/dL Total Bilirubin 0.60 (0.2-1.0) mg/dL AST 21 (13-39) U/L ALT 33 (7-52) U/L Alkaline Phosphatase 117 H (34-104) U/L Total Creatine Kinase 324 H (10-223) U/L CK-MB (CK-2) 2.5 (0.6-6.3) ng/mL Troponin I 0.01 (<0.04) ng/mL C-Reactive Protein 5.83 H (< 5.00) mg/L Total Protein 7.2 (6.4-8.9) g/dL Albumin 4.2 (3.2-5.2) g/dL Globulin 3.0 (2-4) g/dL Albumin/Globulin Ratio 1.4 (1-3) Serum Alcohol < 10 (<10) mg/dL 06/06/17 Range/Units 14:07 WBC (3.5-10.8) 10^3/ul RBC (4.0-5.4) 10^6/ul Hgb (14.0-18.0) g/dl Hct (42-52) % MCV (80-94) fL MCH (27-31) pg MCHC (31-36) g/dl RDW (10.5-15) % Plt Count (150-450) 10^3/ul MPV (7.4-10.4) um3 Neut % (Auto) (38-83) % Lymph % (Auto) (25-47) % [place] % (Auto) (1-9) % Eos % (Auto) (0-6) % Baso % (Auto) (0-2) % Absolute Neuts (auto) (1.5-7.7) 10^3/ul Absolute Lymphs (auto) (1.0-4.8) 10^3/ul Absolute Monos (auto) (0-0.8) 10^3/ul Absolute Eos (auto) (0-0.6) 10^3/ul Absolute Basos (auto) (0-0.2) 10^3/ul Absolute Nucleated RBC 10^3/ul Nucleated RBC % INR (Anticoag Therapy) (0.77-1.02) APTT (26.0-36.3) seconds Sodium (133-145) mmol/L Potassium (3.5-5.0) mmol/L Chloride (101-111) mmol/L Carbon Dioxide (22-32) mmol/L Anion Gap (2-11) mmol/L BUN (6-24) mg/dL Creatinine (0.67-1.17) mg/dL Est GFR ( Amer) (>60) Est GFR (Non-Af Amer) (>60) BUN/Creatinine Ratio (8-20) Glucose (70-100) mg/dL Lactic Acid 2.1 H* (0.5-2.0) mmol/L Calcium (8.6-10.3) mg/dL Magnesium (1.9-2.7) mg/dL Total Bilirubin (0.2-1.0) mg/dL AST (13-39) U/L ALT (7-52) U/L Alkaline Phosphatase (34-104) U/L Total Creatine Kinase (10-223) U/L CK-MB (CK-2) (0.6-6.3) ng/mL Troponin I (<0.04) ng/mL C-Reactive Protein (< 5.00) mg/L Total Protein (6.4-8.9) g/dL Albumin (3.2-5.2) g/dL Globulin (2-4) g/dL Albumin/Globulin Ratio (1-3) Serum Alcohol (<10) mg/dL Microbiology and Other Data: Microbiology 06/07/17 22:31 Nasal Screen MRSA (PCR)(ALEXYS) - Final Nasal Mrsa Negative Assess/Plan/Problems-Billing 51 year old with a history of HTN, CAD with reported stroke in past, no deficits , PVD, RANDEE, mobid obesity, presented yesterday after developing chest pain, subsequent "shaking" and seizure like activity receiving Versed in the field and Ativan in ER, post-ictal/sedated afterwards. EEG in ER showed no epileptiform activity. MRI was personally reviewed and showed no acute changes. Had another event last night on the floor, received Ativan and was started on Keppra, loaded with 1000mg and started 750mg BID. No risk factors for seizures. Has a history of "shaking" spells but poor historian and cannot give specific information. 1. New onset seizures. Unclear etiology but he may have been having these for quite some time given his history. EEG and MRI showed no obvious abnormalities although he does report a history of stroke in the past. His events seem to be associated with chest pain as well, which raises the possibility of a non- epileptic type events. 2. While the semiology is atypical, given the nature of the events, history of CAD (do not want to stress his heart) and now multiple episodes with possible episodes in the past, I am inclined to continue him on Keppra: 750mg BID. Can switch to PO once he is stable and taking PO safely. 3. Should he have another event in house, will consider continuous monitoring, otherwise, I would like to see him back as an outpatient and consider 5 day video EEG in the hopes we can capture an episode. 4. Continue Seizure precautions in house, with Ativan as necessary for seizure activity 5. Needs continued monitoring as an outpatient for his RANDEE, CPAP 6. Cardiac workup per hospitalist. PVCs on tele but no major events. Troponins are negative. 7. If he improves to baseline and is stable today, I am ok with discharge later today or tomorrow on Keppra 750mg po bid. Please arrange follow up in my clinic in 4 weeks 8. Patient should be instructed not to drive for now, avoid heights, heavy machinery, open flames, swimming alone and should take only showers and no baths. - Patient Problems (1) Chest pain Current Visit: No Status: Acute Priority: Medium Onset Date: 01/31/14 Code(s): R07.9 - CHEST PAIN, UNSPECIFIED SNOMED Code(s): 61914605 Comment: Atypical chest pain, some residual "pressure" 06/07/17. Doubt cardiac etiology. Continue ASA, clopidogrel, BB, statin. History of CO, stent. Discussed with Dr. Ocampo, his primary land leasing examiner. Chest pain is a very frequent c/o for this patient. (2) Sleep apnea Current Visit: Yes Status: Acute Code(s): G47.30 - SLEEP APNEA, UNSPECIFIED SNOMED Code(s): 72875454 Comment: O2 sat 96% on RA by me. I asked family to bring in his CPAP. Pt tolerated hospital CPAP night of 06/07. (3) Episode of shaking Current Visit: Yes Status: Acute Code(s): R25.1 - TREMOR, UNSPECIFIED SNOMED Code(s): 48432849 Comment: Multiple episodes. Doubt seizure as no LOC. EEG report pending. MRI unremarkable. Another episode of unresponsiveness noted on 4S, pt transferred to ICU and levetiracetam started. Plan is to continue levetiracetam 1000 mg bid, fup with Dr. Loaiza in 4-6 weeks with a levetiracetam level before his visit. (4) Morbid obesity Current Visit: No Status: Acute Code(s): E66.01 - MORBID (SEVERE) OBESITY DUE TO EXCESS CALORIES SNOMED Code(s): 197984174 Comment: BMI 49.5.
[2017-06-09] MEDS: Atorvastatin* 20 MG TAB PO SCH (16:42)
--- NOTE | 2017-06-10 05:33 | PN ---
NEUROLOGICAL FOLLOWUP NOTE: DATE OF SERVICE: 06/09/17 PATIENT OF: Dr. Pacheco HISTORY: This is a 51-year-old man who was started on Keppra for possible seizures. He has had no further events since Saturday night. He has no complaints. He has been up and out of bed to go to bathroom. He is walking without trouble. He will get lightheaded when he gets up too quickly, but that happens to him at home as well. MEDICATIONS: His medications are unchanged. 1. Albuterol 2.5 mg q.2 hours p.r.n. 2. Aspirin 325 mg daily. 3. Lipitor 20 mg daily. 4. Plavix 75 daily. 5. Heparin subcu. 6. Keppra 1000 mg b.i.d. 7. Bystolic 10 mg daily. 8. Zofran p.r.n. 9. Dyazide 1 cap daily. PHYSICAL EXAMINATION: Temp 98, pulse 63, respirations 20, blood pressure 136/ 68. He is alert and oriented, with normal speech and comprehension. Cranial nerves II through XII are intact. Motor exam revealed normal tone and strength. Coordination and gait, sensation intact grossly to the light touch. Chest: Clear. Cardiovascular: Regular rate and rhythm. Abdomen: Soft. ASSESSMENT AND PLAN: Mr. Glaser has had no further spells of seizures and he is on Keppra. Followup would be through Dr. Loaiza from a neurological point of view and he should see him in the next 4 to 6 weeks' time and have a Keppra level checked before. If he continues to have frequent spells, we will need to monitor him to see if these are functional versus electrographic seizures from what the hospitalist witnessed. He thought it was most likely seizures and he is being treated for that at this point. Thank you for sharing his case. [id number]/[facility] #: [id number] [facility]
[2017-06-10] MEDS: Clopidogrel TAB* 75 MG PO SCH (08:41)
[2017-06-10] MEDS: CMCS Nebivolol TAB (NF) 2.5 MG TAB PO SCH (08:41)
[2017-06-10] MEDS: levETIRAcetam TAB* 500 MG PO SCH (08:41)
[2017-06-10] MEDS: Triamterene/HCTZ 37.5-25 MG* CAP PO SCH (08:41)
[2017-06-10] MEDS: Heparin VIAL(*) 5000 UNITS/ML VIAL (FIVE THOUSAND) SUBCUT SCH (08:41)
[2017-06-10] MEDS: Aspirin TAB* 325 MG PO SCH (08:41)
--- NOTE | 2017-06-10 08:44 | PN ---
Progress Note - Progress Note Date of Service: 06/10/17 Note: Time spent on discharge 50 minutes.
[2017-06-10 09:03] VITALS: BP 130/71
--- NOTE | 2017-06-10 11:41 | DS ---
CC: Dr. Chu; Dr. Alcaraz; Dr. Loaiza * DATE OF ADMISSION: 06/07/2017. DATE OF DISCHARGE: 06/10/2017. HISTORY: This 51-year-old man initially complained of chest pain. He has some odd spells with shaking, lip smacking, unresponsiveness. The patient says he was not really completely unconscious during any of these spells. He had some episodes at home, some in the emergency room, and a number during his hospital stay. He was seen in consultation by Dr. Loaiza. He had an EEG which was unremarkable. He had a CT scan and an MRI of the brain which also did not show any significant findings. He was started on Levetiracetam. Following that, I do not think he had any more episodes. He tolerated it well up until now. The patient will have a Levetiracetam level in two weeks and follow-up with Dr. Loaiza in four weeks. FINAL DIAGNOSES: 1. Possible seizure disorder. 2. Chronic chest pain, known coronary artery disease. 3. Sleep apnea. 4. Morbid obesity. DISCHARGE MEDICATIONS: 1. Levetiracetam 1,000 mg b.i.d. 2. Nebivolol 10 mg daily. 3. Clopidogrel 75 mg daily. 4. Aspirin 325 mg daily. 5. Atorvastatin 20 mg at bedtime. 6. Triamterene Hydrochlorothiazide 37.5/25 one daily. 7. Nitroglycerin 0.4 mg sublingual every 5 minutes prn. 8. Potassium Chloride two tablets every other day alternating with four tablets every other day. [id number]/[facility] #: [id number] [facility]
== END 2017-06-10 12:15 | disposition home or self-care (01) | DRG 101 ==
LOC: ED 13:36 → MEDTELE 16:19 → OBSVTOIN 06-07 14:59 → ICU 06-07 22:04 → MEDTELE 06-08 15:13
PROVIDERS: ADMIT Internal Medicine; ATTEND Internal Medicine
PROC: 5A09357 Assistance with Respiratory Ventilation, Less than 24 Consecutive Hours, Continuous Positive Airway Pressure (ICD-10-PCS; principal; 2017-06-07)
DX: G40.909 Epilepsy, unspecified, not intractable, without status epilepticus (principal); E66.01 Morbid (severe) obesity due to excess calories; I11.9 Hypertensive heart disease without heart failure; Z68.42 Body mass index [BMI] 45.0-49.9, adult; R07.9 Chest pain, unspecified; I25.10 Atherosclerotic heart disease of native coronary artery without angina pectoris; G47.33 Obstructive sleep apnea (adult) (pediatric); E78.5 Hyperlipidemia, unspecified; J45.909 Unspecified asthma, uncomplicated; I73.9 Peripheral vascular disease, unspecified; I44.1 Atrioventricular block, second degree; I25.2 Old myocardial infarction; Z79.82 Long term (current) use of aspirin; Z79.899 Other long term (current) drug therapy; Z88.0 Allergy status to penicillin; Z88.8 Allergy status to other drugs, medicaments and biological substances; Z82.49 Family history of ischemic heart disease and other diseases of the circulatory system; Z86.73 Personal history of transient ischemic attack (TIA), and cerebral infarction without residual deficits
CPT/HCPCS: 36415; 70450; 70551; 80048; 80053; 80061; 80307; 80320; 81003; 81015; 82550; 82553; 83036; 83605; 83735; 84484; 85025; 85610; 85730; 86140; 87641; 93005; 94660; 94760; 95816; A9270-GY; G0378; G0480; G8978-GP-CI; G8979-GP-CH; G8980-GP-CH; J1644; J2060

== ENCOUNTER 2017-06-27 11:20 | Emergency (ER) | payer MEDICARE, MEDICAID ==
[2017-06-27] MEDS ORDERED: Albuterol HFA INHALER* 8 gm MDI INH ONE ×2 (11:53→13:00)
--- NOTE | 2017-06-27 11:55 | ED ---
Shortness of Breath - HPI Summary HPI Summary: Patient is an obese 51-year-old male with a history of CAD, hypertension, seizures, and hyperlipidemia presents to the ED with chief complaint of "body aches all over." He also endorses shortness of breath. Denies any recent illness or sick contacts. Denies travel. Nonsmoker. Symptoms began 1 week ago and have remained persistent. Denies any previous history of shortness of breath or any pulmonary diagnoses. Significant cardiac history and continues to take daily medications. Recently diagnosed with seizures and began taking Keppra. He also had a CVA last year. Denies fevers, sweats, chills. Denies chest pain. Endorses generalized weakness. Endorses sinus congestion and mild cough without production. He has not taken any medications for relief. Chief complaint is "pain all over." - History of Current Complaint Chief Complaint: EDGeneral Time Seen by Provider: 06/27/17 11:37 Hx Obtained From: Patient Onset/Duration: Gradual Onset Timing: Constant Current Severity: Mild Dyspnea At: Rest Associated Signs & Symptoms: Cough (Nonproductive), Nasal Congestion Related History: Obesity - Risk Factors Pulmonary Embolism: Negative Cardiac: CAD, Elevated lipids, Hypertension, Family History Pseudomonas: Negative Tuberculosis: Negative - Allergy/Home Medications Allergies/Adverse Reactions: Allergies Allergy/AdvReac Type Severity Reaction Status Date / Time MS Penicillins [Penicillins] Allergy Severe Anaphylatic Verified 11/25/16 02:26 Shock MS Amoxicillin Allergy Unknown Swelling Verified 11/25/16 02:26 [From Augmentin XR] MS Clavulanic Acid Allergy Unknown Swelling Verified 11/25/16 02:26 [From Augmentin XR] VINEGAR Allergy Intermediate Hives Uncoded 11/25/16 02:26 MUSHROOMS Allergy Unknown Rash Uncoded 11/25/16 02:26 PMH/Surg Hx/FS Hx/Imm Hx Previously Healthy: No - see below Endocrine/Hematology History: Reports: Hx Anticoagulant Therapy - plavix Denies: Hx Diabetes, Hx Sickle Cell Disease, Hx Thyroid Disease Cardiovascular History: Reports: Hx Angina, Hx Cardiac Arrest, Hx Coronary Artery Disease, Hx Hypercholesterolemia, Hx Hypertension, Hx Myocardial Infarction, Other Cardiovascular Problems/Disorders - HEART DISEASE, CARDIAC EVENT MONITOR IMPLANTED Denies: Hx Congestive Heart Failure, Hx Pacemaker/ICD, Hx Valvular Heart Disease Respiratory History: Reports: Hx Asthma, Hx Sleep Apnea Denies: Hx Chronic Obstructive Pulmonary Disease (COPD) GI History: Reports: Hx Gastroesophageal Reflux Disease Denies: Hx Ulcer History: Reports: Hx Renal Disease - cysts, Other Problems/Disorders - bilat cyst on kidneys Musculoskeletal History: Reports: Hx Arthritis, Hx Back Problems, Other Musculoskeletal History - RANDEE Denies: Hx Scoliosis Sensory History: Reports: Hx Cataracts - right eye, Hx Contacts or Glasses, Hx Hearing Aid Denies: Hx Hearing Problem Opthamlomology History: Reports: Hx Cataracts - right eye, Hx Contacts or Glasses Neurological History: Reports: Hx Seizures, Hx Transient Ischemic Attacks (TIA) Denies: Hx Dementia, Hx Headaches, Other Neuro Impairments/Disorders Psychiatric History: Reports: Hx Depression Denies: Hx Panic Disorder - Cancer History Hx Chemotherapy: No - Surgical History Surgery Procedure, Year, and Place: APR 2004 sinus [facility] [place] ;. 2007 left knee arthroscopy [facility] [place] ;. 2012 left tympanoplasty WITH STAPES IMPLANT ([employer] MALLEOUS HEAD SERIAL # [id number] - PER [employer] INFORMATION SENT TO MRI ON ; IMPLANT IS STAINLESS STEEL STATES SOME DEGREE OF MAGNETISM TESTED MRI SAFE AT 1.5T ONLY - DR ANAYA APPROVED THIS INFORMATION FOR 1.5T ONLY). [facility] [place] ;. 2014 LEFT REVISION TYMPANOPLASTY/ MASTOIDECTOMY [facility] [place] ;. 2011 HEART CATH - NO STENTS ;. 2010 HEART CATH WITH cardiac stents x 4 ([employer] DRUG-ELUTING STENT OKAY IN NORMAL MODE ONLY, MAX 720 GAUSS/CM @ 1.5T) [facility] [place] ;. REVEAL LINQ EVENT MONITOR PLACED- 12/15/15- ED CAME OVER W/ [employer] MACHINE & DID A DOWNLOAD SO THAT NOTHING WOULD BE ERASED Hx Anesthesia Reactions: Yes - SEIZURE LIKE ACTIVITY; REINTUBATION AFTER LEFT EAR 2012 - Immunization History Date of Tetanus Vaccine: UTD Date of Influenza Vaccine: UTD Infectious Disease History: No Infectious Disease History: Denies: Hx Clostridium Difficile, Hx Hepatitis, Hx Human Immunodeficiency Virus (HIV), Hx of Known/Suspected MRSA, Hx Shingles, Hx Tuberculosis, Hx Known/ Suspected VRE, Hx Known/Suspected VRSA, History Other Infectious Disease, Traveled Outside the [place] in Last 30 Days - Family History Known Family History: Positive: Cardiac Disease, Hypertension, Diabetes - Social History Occupation: Unemployed Lives: With Family Alcohol Use: Occasionally Hx Substance Use: No Substance Use Type: Reports: None Hx Tobacco Use: Yes Smoking Status (MU): Former Smoker Type: Cigarettes Length of Time of Smoking/Using Tobacco: 10-12 YRS Have You Smoked in the Last Year: No Review of Systems - ROS Summary Review of Systems Summary: Constitutional: The patient denies fever, GAMING, sweats or chills. HEENT: Head: The patient denies headaches or dizziness. Eyes: The patient denies diplopia, blurry vision, eye pain, eye discharge, photophobia. Throat: The patient denies sore throats or hoarseness. Cardiovascular: The patient denies chest pain, palpitations, syncope, night cramps, or orthostasis. Respiratory: The patient denies cough, sputum production, hemoptysis, or wheezing. Endorses dyspnea at rest. Gastrointestinal: The patient denies odynophagia, dysphagia, hematemesis, melenemesis. Denies abdominal pain, nausea or vomiting. Denies constipation or diarrhea. Genitourinary: Patient denies dysuria, hematuria, or pyuria. Patient denies back pain. Muscles: The patient endorses diffuse myalgias. Joints: The patient denies arthralgia and/or arthritis. Neurologic: The patient denies headache, loss of consciousness, or seizure. Constitutional: Negative Negative: Fever, Chills, Fatigue Eyes: Negative Positive: Other - nasal congestion Cardiovascular: Negative Negative: Palpitations, Chest Pain Positive: Shortness Of Breath, Cough Negative: Abdominal Pain, Vomiting, Diarrhea, Nausea Genitourinary: Negative Positive: no symptoms reported, see HPI Positive: Myalgia - diffuse Negative: Rash, Bruising Positive: Weakness Psychological: Normal All Other Systems Reviewed And Are Negative: Yes Physical Exam - Summary Physical Exam Summary: Appearance: WDW, comfortable, Patient appears very fatigued. Skin: Soft dry skin, no lesions. Nailbeds pink with no cyanosis or clubbing. No petechia noted. Eyes: Conjunctiva pink with no redness or exudates. Myosis, nonreactive to light. Mouth: Dentition without lesions. Moist mucosa Neck: Full range of motion. Palpable thyroid. Trachea at midline. No lymphadenopathy. Pulm: Chest symmetrical expansion. No deformities on posterior chest wall. Lungs clear to auscultation and percussion, without adventitious sounds. Breath sounds decreased bilaterally. Likely due to body habitus. CV: No JVD. No deformities on anterior chest wall. Heart sounds. RRR. Normal S1 and single S2. No S3, S4, rubs, or murmurs. Carotids 2+ bilaterally without bruits. . exam not performed GI: Bowel sounds WNL in all 4 quadrants. No pain on deep palpation of all 4 quadrants. Musculoskeletal: Flexion and extension of neck without limitations. ROM WNL in all extremities. No deformities noted. Pulses +2 bilaterally. Neuro: Motor strength is 5/5 in upper and lower extremities bilaterally. A&OX3 Psych: Logical, coherent Triage Information Reviewed: Yes Vital Signs On Initial Exam: Initial Vitals Temp Pulse Resp BP Pulse Ox 97.1 F 68 20 158/92 97 06/27/17 11:26 06/27/17 11:26 06/27/17 11:26 06/27/17 11:26 06/27/17 11:26 Vital Signs Reviewed: Yes Appearance: Positive: Well-Appearing, No Pain Distress, Well-Nourished Skin: Positive: Warm, Skin Color Reflects Adequate Perfusion Head/Face: Positive: Normal Head/Face Inspection Eyes: Positive: Other: - Myosis, nonreactive to light Neck: Positive: Supple, Nontender, No Lymphadenopathy Respiratory/Lung Sounds: Positive: Clear to Auscultation, Decreased Breath Sounds Cardiovascular: Positive: RRR, Pulses are Symmetrical in both Upper and Lower Extremities Musculoskeletal: Positive: Normal, Strength/ROM Intact Neurological: Positive: Speech Normal Psychiatric: Positive: Normal, Affect/Mood Appropriate AVPU Assessment: Alert Diagnostics - Vital Signs Vital Signs Temp Pulse Resp BP Pulse Ox 06/27/17 11:26 97.1 F 68 20 158/92 97 - Laboratory Result Diagrams: 06/27/17 12:20 06/27/17 12:20 Lab Statement: Any lab studies that have been ordered have been reviewed, and results considered in the medical decision making process. Course/Dx - Course Course Of Treatment: During the course of treatment the patient was evaluated for shortness of breath and possible upper respiratory infection due to sinus congestion and body aches. Influenza swab obtained. Chest x-ray obtained. Labs obtained including a BNP. BNP 18. Other labs unremarkable. On physical exam, bilateral maxillary sinus tenderness on light palpation, frontal sinuses without pain. Endorses nasal discharge, although nothing on physical exam. He is prescribed doxycycline 100 mg twice a day 5 days for sinusitis. No other findings on chest x-ray. Influenza negative. He is okay for discharge at this time. I have encouraged the rescue inhaler as well as his nebulizer treatments at home for any shortness of breath and he will follow up with his PCP regarding any shortness of breath. He will return to the ED for any worsening or changing symptoms and he voices no concerns at this time. - Diagnoses Differential Diagnosis/HQI/PQRI: Positive: Other - Upper respiratory infection, diffuse myalgias, viral illness Provider Diagnoses: Sinusitis Discharge - Discharge Plan Condition: Stable Disposition: HOME Prescriptions: DOXYcycline CAP(*) [DOXYcycline 100MG CAP(*)] 100 mg PO BID #10 cap Patient Education Materials: Sinusitis (ED) Referrals: Carlin Chu MD [Primary Care Provider] - Additional Instructions: Doxycycline twice daily for 5 days Drink plenty of fluids Humidifier in the home will help Albuterol inhaler or nebulizer treatment for any shortness of breath Please follow up with your PCP within 5 days If you develop any worsening shortness of breath, or worsening symptoms including fever, sweats, chills, please return to the ED immediately
[2017-06-27 12:37] LABS: ABS Basophils 0.1 10^3/ul (0-0.2); ABS Eosinophils 0.2 10^3/ul (0-0.6); ABS Lymphocytes 1.4 10^3/ul (1.0-4.8); ABS Monocytes 0.5 10^3/ul (0-0.8); ABS Nucleated RBC 0 10^3/ul; Eosinophil % 3.3 % (0-6); Hematocrit 44 % (42-52); Hemoglobin 14.7 g/dl (14.0-18.0); Lymphocyte % 26.9 % (25-47); Mean Corpuscular HGB Conc 34 g/dl (31-36); Mean Corpuscular Hemoglobin 28 pg (27-31); Mean Corpuscular Volume 84 fL (80-94); Mean Platelet Volume 8 um3 (7.4-10.4); Nucleated Red Blood Cells % 0.1; Platelet Count 189 10^3/ul (150-450); Red Blood Count 5.22 10^6/ul (4.0-5.4); Red Cell Distribution Width 15 % (10.5-15); White Blood Count 5.2 10^3/ul (3.5-10.8)
[2017-06-27 12:59] LABS: EGFR Non-African American 67.2 (>60)
--- NOTE | 2017-06-27 13:41 | RAD ---
HISTORY: Shortness of breath COMPARISONS: April 05, 2017 VIEWS: 2: Frontal and lateral views of the chest. FINDINGS: CARDIOMEDIASTINAL SILHOUETTE: The cardiomediastinal silhouette is normal. MIGUE: The migue are normal. PLEURA: The costophrenic angles are sharp. No pleural abnormalities are noted. LUNG PARENCHYMA: The lungs are clear. ABDOMEN: The upper abdomen is clear. There is no subphrenic gas. BONES AND SOFT TISSUES: Degenerative changes are noted. OTHER: An implantable cardiac monitoring device is noted. IMPRESSION: NO ACTIVE CARDIOPULMONARY DISEASE.
[2017-06-27 14:27] VITALS: BP 146/79
== END 2017-06-27 14:20 | disposition home or self-care (01) ==
LOC: ED 11:20
DX: J32.9 Chronic sinusitis, unspecified (principal); G40.909 Epilepsy, unspecified, not intractable, without status epilepticus; Z87.891 Personal history of nicotine dependence; Z79.02 Long term (current) use of antithrombotics/antiplatelets; Z86.73 Personal history of transient ischemic attack (TIA), and cerebral infarction without residual deficits
CPT/HCPCS: 36415; 71046; 80053; 83605; 83880; 85025; 87502; 94640; 99282; A9270-GY

== ENCOUNTER 2017-07-03 13:31 | Emergency (ER) | payer MEDICARE, MEDICAID ==
--- OUTSIDE RECORDS SUMMARY | 2017-07-03 14:30 | XMS REPORT ---
:1965 External Reference #:[id number] Author Organization [facility] Address [address] [place] [address] Phone [phone] Care Team Providers Name Role Phone Carlin Chu MD Care Team Information Tag Stringer Unavailable Carlin Chu MD Primary Care Physician Unavailable Payers Type Date Identification Numbers Payment Provider Subscriber Medicare Primary Effective: Policy Number: [place] 1997 [id number] Govn SRVS PayID: [id number] [address] [place] [address] Medigap Part B Policy Number: [id number] Medicaid/[place] Group Number: [id number] Medicare Primary Group Name: [id number] PayID: [id number] [place] [address] Problems Date Description Provider Status Onset: 02/23/2011 Acute pharyngitis Cezar Guerra MD Active Onset: 02/23/2011 Perforation of tympanic membrane Cezar Guerra MD Active Onset: 02/23/2011 Dysfunction of eustachian tube Cezar Guerra MD Active Onset: 02/23/2011 Middle ear conductive hearing loss Cezar Guerra MD Active Onset: 02/23/2011 Sensorineural hearing loss Cezar Guerra MD Active Onset: 02/23/2011 Disorder of nasal cavity Mikala Cordova [employer]ISH CLE[employer]ER Active Onset: 02/23/2011 Gastroesophageal reflux disease Mikala Cordova [employer] Active Onset: 02/23/2011 Extrinsic asthma without status Mikala Cordova [employer] Active asthmaticus Onset: 02/23/2011 Peptic reflux disease Mikala Cordova [employer] Active Onset: 02/23/2011 Allergic rhinitis Mikala Cordova [employer] Active Family History Date Family Member(s) Problem(s) Comments Mother Non Insulin Dependent Diabetes Social History Type Date Description Comments 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 Cigarette Use Former Cigarette Smoker Packs Daily 1 for 25 years Cigars has never smoked cigars Pipe has never smoked a pipe Smokeless Tobacco has never used smokeless tobacco ETOH Use Current Alcohol Use Occasionally Recreational Drug Use denies drug use Smoking Patient is a former smoker Allergies, Adverse Reactions, Alerts Date Description Reaction Status Severity Comments 05/04/2008 Augmentin XR active 07/23/2012 Penicillins neck, tongue swells active 09/13/2004 NKDA inactive Medications Medication Date Status Form Strength Qnty SIG Indications Ordering Provider Mupirocin 04/26 Active Ointment 2% 22gm apply to both nostril Eddie Guerra twice a day Triamcinolone 05/25 Active Cream 0.1% 15gm Apply to Cezar Acetonide left ear Eddie Guerra twice daily for 1 week Percocet 05/04 Active Tablets 5-325mg 30tab 1-2 tabs by s mouth every Eddie Guerra, 4-6 hours as MD needed for pain Levofloxacin 05/04 Active Tablets 500mg 10tab 1 by mouth s every day Eddie Guerra MD Ciprodex 09/11 Active Suspension 0.3-0.1% 1Bott 4 drops to le left ears Eddie Guerra twice a day MD apply rebate rx bin: [id number] rxpcn: alberto rxgrp:[id number] 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 needed for pain Ipratropium 11/18 Active Solution 0.06% 6unit 2 to 4 J31.0 Julio Swift [place] s sprays in Strominge each nostril r, M.D. 4 times a day as needed for rhinitis Omeprazole 11/[address] 40mg 60cap 40mg po bid 530.81 Julio Ernst. s for 1 month Tani akbar M.D. esophagitis Fluticasone 09/20 Active 50mcg 1unit 2 sprays Cezar Nasal [place] /2010 s each side vanita Fernando MD Astbubba Nasal 09/16 Active 0.15% 205 1unit 2 sprays Julio N. [place] /2009 mcg s once a day Tani akbar M.D. Singulair 11/21 Active Tabs 10mg 30tab 1qd - Take 477.0 Cezar s One Tablet Eddie Guerra By Mouth Every Day Advair Hfa 10/22 Active Aerosol 115/21 1unit 2 Puffs bid 478.19 Julio NSandie s With Spacer Tani akbar M.D. Please Provide Spacer Albuterol Active Aerosol 90mcg/Dos 2unit 2 Puffs Q4H Cezar Inhalation / e s prn Eddie Guerra MD Clopidrogel Active Tablets 75mg Unknown Isosorbide Active 60mg 1 po qd Unknown Dinitrate Bystolic Active 5mg qd Simvastatin Active ?mg oen po qd Kimberley, Carlin SANTIAGO Sertraline HCL Active ?mg one po qd Kimberley, Carlin SANTIAGO Aspirin Active Tablets DR 325mg Triamterene/Hyd Active Unknown rochlorothiazid e Nitroglycerin Active ?mg prn Only Kimberley, Carlin SANTIAGO Ranexa Active Tablets ER 500mg 1 po bid Unknown 12HR Atorvastatin Active Tablets 40mg 1 po qd Unknown Calcium Klor-Con M20 Active Tablets ER 20Meq Stefek,Pa / ul M.D. Metoprolol Active Tablets ER 50mg Unknown Succinate ER 24HR Clopidogrel Active Tablets 75mg Stefek,Pa Bisulfate ul M.D. Triamterene/Hyd Active Capsules 37.5-25mg jaelyn Chulorothiazid Carlin SANTIAGO e Advair Diskus Active Aerosol 250-50mcg Kimberley, /0000 /Dose Carlin SANTIAGO Proair HFA Active Aerosol 108(90Bas Kimberley, /0000 e) Carlin SANTIAGO mcg/Act Fluticasone Active Suspension 50mcg/Act Unknown Propionate Atorvastatin Active Tablets 20mg StefeshermanPa Calcium / ul MSandieDSandie Famotidine Active Tablets 20mg Unknown Ofloxacin 12/17 Hx Solution 0.3% 1unit 4 drops to Julio N. s affected ear Strominge - daily Jacobo akbar 03/12 Ciprodex 12/15 Hx Suspension 0.3-0.1% 2unit 4 drops Julio N. s infected ear Strominge - bid apply Jacobo akbar 03/12 rxbin: [id number] rxpcn: loyalty rxgrp: [id number] shoe lay out planner: ([id number]) id: [id number] Ciprodex 08/28 Hx Suspension 0.3-0.1% 2unit 4 drops 385.32 Julio N. s infected ear Strominge - bid apply Jacobo akbar 12/02ate rxbin: [id number] rxpcn: loyalty rxgrp: [id number] shoe lay out planner: ([id number]) id: [id number] Levofloxacin 07/23 Hx Tablets 500mg 10tab 1 po qd s Eddie Guerra, - 12/02 Oxycodone/Aceta 07/23 Hx Tablets 5-325mg 30tab 1-2 tabs by Cezar s mouth every Eddie Guerra, - 4-6 hours as 12/02 needed for pain Ciprodex 03/04 Hx Suspension 0.3-0.1% 2unit 4 drops 381.3 s infected ear Eddie Guerra, - bid x 14 07/23 days apply rebate rxbin: [id number] rxpcn: loyalty rxgrp: [id number] shoe lay out planner: ([id number]) id: [id number] Bacitracin 11/18 Hx 1Tube apply to rim 472.0 Julio NSandie Ointment of nose both Strominge - sides in the Jacobo akbar 12/02 am and pm. Flovent HFA 09/17 Hx Aerosol 110mcg/Ac 1unit 2 puff bid 493.01 Julio Swift t zeferino akbar M.D. 12/02 Omnaris 09/19 Hx Suspension 50mcg/Act 90day 2 sprays Julio Swift s each nostril Tani - debora akbar M.D. 09/17 Percocet 06/30 Hx Tablets 5-325mg 30tab 1-2 tabs by Cezar s mouth every Eddie Guerra - 4-6 hours as 01/07 needed pain Ciprofloxacin 06/30 Hx Tablets 500mg 14tab 1 tablet Cezar BOWSER s twice a day Eddie Guerra, - for 7 days 10/10 Aciphex 04/[address] 20mg 30tab 1 po Daily Julio Swift s Tani akbar M.D. 05/24 Mucinex DM 03/10 Hx Tablets ER 60-1200 5Days 1 op qd 478.1-4 Cezar Maximum 12HR Eddie Guerra, Strength - 09/30 Fexofenadine 12/28 Hx Tabs 180mg 30tab 1qd - Take Cezar BOWSER s One Tablet Eddie Guerra - By Mouth 05/24 Every Medrol Dosepak 07/28 Hx Tablets 4mg 1Pack Take as 350.2 Directed Pipe Fernando MD 05/24 Prednisone 05/04 Hx Tablets 20mg 5Days 3 PO qd With Julio Swift Jade akbar M.D. 12/28 Augmentin 04/26 Hx Tablets 875mg 14Day 1 po bid 473.0 Julio Swift s with jade akbar M.D. 05/04 Aciphex 12/[address] 20mg 60tab 1 po bid 530.81 Cezar s Pipe Fernando MD 09/30 Fexofenadine 12/03 Hx Tablets 180mg 30tab 1 po qd 477.8 Julio BOWSER s Tani akbar M.D. 12/28 Zyrtec 11/03 Hx Tablets 10mg 30tab 1 PO qd Julio NSandie /2007 zeferino akbar M.D. 12/28 Fluticasone 04/02 Hx Suspension 50mcg/Act 1mont 2 sprays 471.8 Cezar Propionate h each nostril Eddie Guerra - daily 05/04 Prednisone 01/31 Hx Tablets 10mg 40tab 4 Tabs PO 471.8 Cezar /2006 s Every Day X4 ESandie Guerra - D, Then 3 MD 03/03 Tabs PO /2006 Every Day X 4D, Then 2 Tab PO Daily X4D, Then 1 Tab PO Daily X4D Nasacort Aq 04/24 Hx Suspension 55mcg/Act 1unit 2 Sprays 471.8 Cezar Intranasal /2005 uation s Each Nostril Jeffy Fernando - qd 05/04 Levaquin 04/24 Hx Tablets 500mg 10tab 1 Tablet By 471.8 Cezar s Mouth Daily ESandie Guerra - Until 03/03 Finished Nexium 10/24 Hx Unknown /2005 - 05/04 Singulair 07/11 Hx Tablets 10mg 30tab 1 PO qd 471.8 Cezar /2005 s Pipe Fernando MD 11/03 Nasacort Aq 09/13 Hx Suspension 55McG/Act 1unit 2 sprays 473.2 Cezar Intranasal /2004 uation s each nostril Jeffy Fernando - qd 12/02 Lisinopril Hx Unknown /0000 - 12/02 Pepcid ac Ez Hx Unknown Chews Maximum /0000 Strength - 12/02 Immunizations CPT Code Status Date Vaccine Lot # [id number] Ordered 02/17/2015 Influenza Virus Vaccine, 3 Years Of Age And Above, Intramuscular 74980 Given Unknown Influenza Virus Vaccine, 3 Years Of Age And Above, Intramuscular Vital Signs Date Vital Result Comment 06/06/2017 BP Systolic 159 mmHg BP Diastolic 94 mmHg Heart Rate 74 /min Respiratory Rate 17 /min Weight 335.00 lb Weight in kg's 151.956 Height 68.50 inches 5'8.50" Height in cm's 174.0 cm BMI (Body Mass Index) 50.2 kg/m2 08/28/2016 BP Systolic 155 mmHg BP Diastolic 88 mmHg Heart Rate 77 /min Weight 335.00 lb Weight in kg's 151.956 Height 68.50 inches 5'8.50" Height in cm's 174.0 cm BMI (Body Mass Index) 50.2 kg/m2 04/26/2016 BP Systolic 165 mmHg BP Diastolic 99 mmHg Heart Rate 78 /min Respiratory Rate 16 /min Weight 335.00 lb Weight in kg's 151.956 Height 68.50 inches 5'8.50" Height in cm's 174.0 cm BMI (Body Mass Index) 50.2 kg/m2 12/30/2015 BP Systolic 114 mmHg BP Diastolic 89 mmHg Heart Rate 64 /min Respiratory Rate 17 /min Weight 335.00 lb Weight in kg's 151.956 Height 68.50 inches 5'8.50" Height in cm's 174.0 cm BMI (Body Mass Index) 50.2 kg/m2 06/02/2015 BP Systolic 107 mmHg BP Diastolic 82 mmHg Heart Rate 78 /min Respiratory Rate 17 /min Weight 335.00 lb Weight in kg's 151.956 Height 68.50 inches 5'8.50" Height in cm's 174.0 cm BMI (Body Mass Index) 50.2 kg/m2 05/04/2015 BP Systolic 142 mmHg BP Diastolic 105 mmHg Heart Rate 76 /min Respiratory Rate 17 /min Weight 335.00 lb Weight in kg's 151.956 Height 68.50 inches 5'8.50" Height in cm's 174.0 cm BMI (Body Mass Index) 50.2 kg/m2 03/24/2015 BP Systolic 134 mmHg BP Diastolic 86 mmHg Heart Rate 72 /min Respiratory Rate 17 /min Weight 335.00 lb Weight in kg's 151.956 Height 68.50 inches 5'8.50" Height in cm's 174.0 cm BMI (Body Mass Index) 50.2 kg/m2 03/17/2015 BP Systolic 132 mmHg BP Diastolic 92 mmHg Heart Rate 91 /min Respiratory Rate 18 /min Weight 335.00 lb Weight in kg's 151.956 Height 68.50 inches 5'8.50" Height in cm's 174.0 cm BMI (Body Mass Index) 50.2 kg/m2 12/31/2014 Respiratory Rate 17 /min Weight 335.00 lb Weight in kg's 151.956 Height 68.50 inches 5'8.50" Height in cm's 174.0 cm BMI (Body Mass Index) 50.2 kg/m2 10/28/2014 BP Systolic 97 mmHg BP Diastolic 61 mmHg Heart Rate 78 /min Respiratory Rate 16 /min Weight 335.00 lb Weight in kg's 151.956 Height 68.50 inches 5'8.50" Height in cm's 174.0 cm BMI (Body Mass Index) 50.2 kg/m2 04/01/2014 BP Systolic 131 mmHg BP Diastolic 84 mmHg Heart Rate 67 /min Respiratory Rate 18 /min Weight 335.00 lb Weight in kg's 151.956 Height 68.50 inches 5'8.50" Height in cm's 174.0 cm BMI (Body Mass Index) 50.2 kg/m2 01/28/2014 BP Systolic 109 mmHg BP Diastolic 68 mmHg Heart Rate 68 /min Respiratory Rate 17 /min Weight 328.00 lb Weight in kg's 148.781 Height 68.50 inches 5'8.50" Height in cm's 174.0 cm BMI (Body Mass Index) 49.1 kg/m2 11/04/2013 BP Systolic 121 mmHg BP Diastolic 79 mmHg Heart Rate 77 /min Respiratory Rate 16 /min Weight 325.00 lb Weight in kg's 147.420 Height 68.50 inches 5'8.50" Height in cm's 174.0 cm BMI (Body Mass Index) 48.7 kg/m2 09/29/2013 BP Systolic 138 mmHg BP Diastolic 76 mmHg Heart Rate 73 /min Respiratory Rate 16 /min Weight 325.00 lb Weight in kg's 147.420 Height 68.50 inches 5'8.50" Height in cm's 174.0 cm BMI (Body Mass Index) 48.7 kg/m2 09/17/2013 BP Systolic 128 mmHg BP Diastolic 80 mmHg Heart Rate 65 /min Respiratory Rate 16 /min Weight 325.00 lb Weight in kg's 147.420 Height 68.50 inches 5'8.50" Height in cm's 174.0 cm BMI (Body Mass Index) 48.7 kg/m2 09/11/2013 Respiratory Rate 17 /min Weight 325.00 lb Weight in kg's 147.420 Height 68.50 inches 5'8.50" Height in cm's 174.0 cm BMI (Body Mass Index) 48.7 kg/m2 07/23/2013 BP Systolic 129 mmHg BP Diastolic 82 mmHg Heart Rate 87 /min Respiratory Rate 17 /min Weight 325.00 lb Weight in kg's 147.420 Height 68.50 inches 5'8.50" Height in cm's 174.0 cm BMI (Body Mass Index) 48.7 kg/m2 04/09/2013 BP Systolic 131 mmHg BP Diastolic 83 mmHg Heart Rate 75 /min Respiratory Rate 16 /min Weight 325.00 lb Weight in kg's 147.420 Height 68.50 inches 5'8.50" Height in cm's 174.0 cm BMI (Body Mass Index) 48.7 kg/m2 03/12/2013 BP Systolic 132 mmHg BP Diastolic 84 mmHg Heart Rate 61 /min Respiratory Rate 17 /min Weight 325.00 lb Weight in kg's 147.420 Height 68.50 inches 5'8.50" Height in cm's 174.0 cm BMI (Body Mass Index) 48.7 kg/m2 01/29/2013 BP Systolic 126 mmHg BP Diastolic 81 mmHg Heart Rate 73 /min Respiratory Rate 17 /min Weight 325.00 lb Weight in kg's 147.420 Height 68.50 inches 5'8.50" Height in cm's 174.0 cm BMI (Body Mass Index) 48.7 kg/m2 01/21/2013 Weight 325.00 lb Weight in kg's 147.420 Height 68.50 inches 5'8.50" Height in cm's 174.0 cm BMI (Body Mass Index) 48.7 kg/m2 01/07/2013 Weight 325.00 lb Weight in kg's 147.420 Height 68.50 inches 5'8.50" Height in cm's 174.0 cm BMI (Body Mass Index) 48.7 kg/m2 12/17/2012 BP Systolic 108 mmHg BP Diastolic 73 mmHg Heart Rate 77 /min Respiratory Rate 16 /min Weight 325.00 lb Weight in kg's 147.420 Height 68.50 inches 5'8.50" Height in cm's 174.0 cm BMI (Body Mass Index) 48.7 kg/m2 12/15/2012 BP Systolic 99 mmHg BP Diastolic 72 mmHg Heart Rate 62 /min Respiratory Rate 16 /min Weight 325.00 lb Weight in kg's 147.420 Height 68.50 inches 5'8.50" Height in cm's 174.0 cm BMI (Body Mass Index) 48.7 kg/m2 12/03/2012 BP Systolic 123 mmHg BP Diastolic 88 mmHg Heart Rate 66 /min Respiratory Rate 16 /min Weight 325.94 lb Weight in kg's 147.84 Height 68.50 inches 5'8.50" Height in cm's 174.0 cm BMI (Body Mass Index) 48.8 kg/m2 07/23/2012 BP Systolic 122 mmHg BP Diastolic 84 mmHg Heart Rate 64 /min Respiratory Rate 16 /min Weight 305.00 lb Weight in kg's 138.348 Height 69.02 inches 5'9.02" Height in cm's 175.3 cm BMI (Body Mass Index) 45.0 kg/m2 03/13/2012 Weight 288.00 lb Weight in kg's 130.637 Height 69.02 inches 5'9" Height in cm's 175.3 cm BMI (Body Mass Index) 42.5 kg/m2 03/04/2012 BP Systolic 150 mmHg BP Diastolic 90 mmHg Heart Rate 66 /min Respiratory Rate 20 /min Weight 208.00 lb Weight in kg's 94.349 Height 69 inches 5'9" Height in cm's 175.3 cm BMI (Body Mass Index) 30.7 kg/m2 02/22/2011 BP Systolic 152 mmHg BP Diastolic 100 mmHg Heart Rate 62 /min Respiratory Rate 16 /min Weight 280.00 lb Weight in kg's 127.008 Height 69 inches 5'9" Height in cm's 175.3 cm BMI (Body Mass Index) 41.3 kg/m2 06/30/2010 BP Systolic 143 mmHg BP Diastolic 95 mmHg Heart Rate 75 /min Respiratory Rate 17 /min 07/28/2008 Heart Rate 64 /min Respiratory Rate 16 /min Weight 321.00 lb Weight in kg's 145.606 05/04/2008 BP Systolic 170 mmHg Taken with LG BP cuff BP Diastolic 106 mmHg Taken with LG BP cuff Heart Rate 79 /min Respiratory Rate 18 /min 04/26/2008 BP Systolic 159 mmHg BP Diastolic 114 mmHg Heart Rate 79 /min Respiratory Rate 16 /min 03/11/2008 BP Systolic 157 mmHg BP Diastolic 107 mmHg Heart Rate 77 /min Respiratory Rate 16 /min 02/16/2008 BP Systolic 133 mmHg BP Diastolic 100 mmHg Heart Rate 75 /min Respiratory Rate 16 /min 01/15/2008 BP Systolic 160 mmHg BP Diastolic 109 mmHg Heart Rate 74 /min Respiratory Rate 16 /min 12/04/2007 BP Systolic 137 mmHg BP Diastolic 85 mmHg Heart Rate 75 /min Respiratory Rate 16 /min 11/04/2007 BP Systolic 139 mmHg BP Diastolic 88 mmHg Heart Rate 85 /min Respiratory Rate 12 /min 10/23/2007 BP Systolic 138 mmHg BP Diastolic 87 mmHg Heart Rate 82 /min Respiratory Rate 16 /min 07/31/2007 BP Systolic 148 mmHg BP Diastolic 86 mmHg 07/11/2007 BP Systolic 148 mmHg BP Diastolic 92 mmHg Heart Rate 80 /min Respiratory Rate 14 /min 12/02/2006 BP Systolic 119 mmHg BP Diastolic 76 mmHg Heart Rate 75 /min Respiratory Rate 16 /min 04/24/2006 BP Systolic 176 mmHg BP Diastolic 73 mmHg Heart Rate 80 /min Respiratory Rate 16 /min 04/06/2005 BP Systolic 146 mmHg BP Diastolic 82 mmHg Heart Rate 80 /min Respiratory Rate 16 /min Results Test Date Test Result H/L Range Note CBC No Diff 05/04/2015 White Blood Count 5.2 10^3/uL 3.5-10.8 1 Red Blood Count 5.43 10^6/uL High 4.0-5.4 1 Hemoglobin 15.1 g/dL 14.0-18.0 1 Hematocrit 47 % 42-52 1 Mean Corpuscular Volume 87 fL 80-94 1 Mean Corpuscular Hemoglobin 28 pg 27-31 1 Mean Corpuscular HGB Conc 32 g/dL 31-36 1 Red Cell Distribution Width 15 % 10.5-15 1 Platelet Count 232 10^3/uL 150-450 1 Mean Platelet Volume 8 um3 7.4-10.4 1 Inr/Protime 05/04/2015 Inr 1.05 0.89-1.11 1 Laboratory test finding 05/04/2015 Partial Thrombo 45.0 seconds High 26.0- 36.3 1, 2 Time PTT Basic Metabolic Panel 05/04/2015 Sodium 141 mmol/L 133-145 1 Potassium 3.8 mmol/L 3.5-5.0 1 Chloride 106 mmol/L 101-111 1 Co2 Carbon Dioxide 28 mmol/L 22-32 1 Anion Gap 7 mmol/L 2-11 1 Glucose 91 mg/dL 70-100 1 Blood Urea Nitrogen 14 mg/dL 6-24 1 Creatinine 1.15 mg/dL 0.67-1.17 1 BUN/Creatinine Ratio 12.2 8-20 1 Calcium 9.9 mg/dL 8.6-10.3 1 Egfr Non- 67.0 >60 1 Egfr 86.2 >60 1, 3 Laboratory test finding 12/06/2012 Inr 0.96 0.87-0.97 4 Activated Partial Thrombo Time 44.1 seconds High 22.18-37.18 5 Basic Metabolic Panel 12/02/2012 Sodium 140 mmol/L 133-145 Potassium 4.3 mmol/L 3.5-5.0 Chloride 104 mmol/L 101-111 Co2 Carbon Dioxide 30.0 mmol/L 22-32 Anion Gap 6.0 mmol/L 2-11 Glucose 111 mg/dL High 70-100 Blood Urea Nitrogen 14 mg/dL 6-24 Creatinine 1.30 mg/dL 0.50-1.40 BUN/Creatinine Ratio 10.8 8-20 Calcium 9.7 mg/dL 8.1-9.9 Egfr Non- 58.7 >60 Egfr 75.5 >60 6 CBC Auto Diff 07/23/2012 White Blood Count 4.0 10^3/uL Low 4.8-10.8 Red Blood Count 4.93 10^6/uL 4.0-5.4 Hemoglobin 14.3 g/dL 14.0-18.0 Hematocrit 43 % 42-52 Mean Corpuscular Volume 87 fL 80-94 Mean Corpuscular Hemoglobin 29 pg 27-31 Mean Corpuscular HGB Conc 33 g/dL 31-36 Red Cell Distribution Width 14 % 10.5-15 Platelet Count 184 10^3/uL 150-450 Mean Platelet Volume 8 um3 7.4-10.4 Abs Neutrophils 2.2 10^3/uL 1.5-7.7 Abs Lymphocytes 1.3 10^3/uL 1.0-4.8 Abs Monocytes 0.4 10^3/uL 0-0.8 Abs Eosinophils 0.1 10^3/uL 0-0.6 Abs Basophils 0 10^3/uL 0-0.2 Abs Nucleated RBC 0.01 10^3/uL Granulocyte % 54.0 % 38-83 Lymphocyte % 32.6 % 25-47 Monocyte % 9.7 % High 1-9 Eosinophil % 3.1 % 0-6 Basophil % 0.6 % 0-2 Nucleated Red Blood Cells % 0.2 Basic Metabolic Panel 07/23/2012 Sodium 135 mmol/L 133-145 Potassium 3.6 mmol/L 3.5-5.0 Chloride 102 mmol/L 101-111 Co2 Carbon Dioxide 30.0 mmol/L 22-32 Anion Gap 3.0 mmol/L 2-11 Glucose 80 mg/dL 70-100 Blood Urea Nitrogen 11 mg/dL 6-24 Creatinine 1.10 mg/dL 0.50-1.40 BUN/Creatinine Ratio 10.0 8-20 Calcium 9.0 mg/dL 8.1-9.9 Egfr Non- 71.4 >60 Egfr 91.9 >60 7 Laboratory test finding 04/28/2008 Troponin-I (TnI) 0.04 NG/ML 0-0.06 8 Stat CMP 04/28/2008 Sodium 136 mmol/L 135-145 Potassium 3.9 mmol/L 3.5-5.0 Chloride 104 mmol/L 101-111 Co2 (Carbon Dioxide) 25.0 mmol/L 22-32 Anion Gap 7.0 mmol/L 2-11 9 Glucose 98 mg/dL 70-100 10 BUN 15 mg/dL 6-24 Creatinine 1.20 mg/dL 0.50-1.40 One Over Creatinine 0.80 BUN/Creatinine Ratio 12.5 8-20 Calcium 9.3 mg/dL 8.1-9.9 11 Total Protein 6.9 GM/DL 6.2-8.1 Albumin 3.9 GM/DL 3.6-5.4 Globulin 3.0 GM/DL 2-4 Albumin/Globulin Ratio 1.3 1-3 Bilirubin Total 0.5 mg/dL 0.4-1.5 Alkaline Phosphatase 112 U/L 39-117 Alt (SGPT) 53 U/L 17-63 Ast (Sgot) 31 U/L 12-42 CBC With Electronic Diff Stat 04/28/2008 White Blood Count 6.7 CUMM 4.8- 10.8 Red Cell Count 5.28 CUMM 4.6-6.2 Hemoglobin 15.2 g/dL 14.0-18.0 Hematocrit 44 % 42-52 Mean Corpuscular Volume 83 um3 80-94 Mean Corpuscular Hemoglob 29 pg 27-31 Mean Corpuscular HGB Cone 35 g/dL 32-36 Redcell Distribution WDTH 14 % 10.5-15 Platelet Count 254 CUMM 150-450 Mean Platelet Volume 7.6 um3 7.4-10.4 Gran % 60.3 % 38-83 Lymph % 28.8 % 25-47 Mononuclear % 7.4 % 1-9 Eosinophil % 3.0 % 0-6 Basophil % 0.5 % 0-2 Abs Lymphs 1.9 1.0-4.8 Abs Mononuclear 0.5 0-0.8 Absolute Neutrophil Count 4.0 1.5-7.7 Abs Eosinophils 0.2 0-0.6 Abs Basophils 0 0-0.2 Laboratory test finding 04/26/2008 Culture Sensitivity FEW COLONIES OF 12 <SEE NOTE> 1 SDS 05/11 2 SDS 05/11 3 Because ethnic data is not always readily available, this report includes an eGFR for both -Americans and non- Americans. The National Kidney Disease Education Program (NKDEP) does not endorse the use of the MDRD equation for patients that are not between the ages of 18 and 70, are , have extremes of body size, muscle mass, or nutritional status, or are non- or non-. According to the National Kidney Foundation, irrespective of diagnosis, the stage of the disease is based on the level of kidney function: Stage Description GFR(mL/min/1.73 m(2)) 1 Kidney damage with normal or decreased GFR 90 2 Kidney damage with mild decrease in GFR 60-89 3 Moderate decrease in GFR 30-59 4 Severe decrease in GFR 15-29 5 Kidney failure <15 (or dialysis) 4 SDS 12/09/12 5 SDS 12/09/12 6 Because ethnic data is not always readily available, this report includes an eGFR for both -Americans and non- Americans. The National Kidney Disease Education Program (NKDEP) does not endorse the use of the MDRD equation for patients that are not between the ages of 18 and 70, are , have extremes of body size, muscle mass, or nutritional status, or are non- or non-. According to the National Kidney Foundation, irrespective of diagnosis, the stage of the disease is based on the level of kidney function: Stage Description GFR(mL/min/1.73 m(2)) 1 Kidney damage with normal or decreased GFR 90 2 Kidney damage with mild decrease in GFR 60-89 3 Moderate decrease in GFR 30-59 4 Severe decrease in GFR 15-29 5 Kidney failure <15 (or dialysis) 7 Because ethnic data is not always readily available, this report includes an eGFR for both -Americans and non- Americans. The National Kidney Disease Education Program (NKDEP) does not endorse the use of the MDRD equation for patients that are not between the ages of 18 and 70, are , have extremes of body size, muscle mass, or nutritional status, or are non- or non-. According to the National Kidney Foundation, irrespective of diagnosis, the stage of the disease is based on the level of kidney function: Stage Description GFR(mL/min/1.73 m(2)) 1 Kidney damage with normal or decreased GFR 90 2 Kidney damage with mild decrease in GFR 60-89 3 Moderate decrease in GFR 30-59 4 Severe decrease in GFR 15-29 5 Kidney failure <15 (or dialysis) 8 New Reference Range and Interpretation effective 02/20/02 TnI (ng/ml) INTERPRETATION <0.06 ng/ml NOT SUPPORTIVE OF DIAGNOSIS OF NM 0.06 - 0.50 ng/ml INDETERMINATE: SUGGEST SERIAL STUDIES IF CLINICALLY INDICATED. > 0.5 ng/ml CONSISTENT WITH DIAGNOSIS OF NM . 9 Anion gap measurement may be of limited value in the presence of any alkalosis, especially in a combined acid base disorder. . 10 Note change in reference range as of 01/08/08. The change was based on recommendations from the [place] [employer]. 11 Please note change in reference range effective 07 . 12 FEW COLONIES OF NORMAL RESPIRATORY MARY BETH Procedures Date CPT Code Description Status 03/21/2016 97980 Nasal Endoscopy, Diagnostic Completed 05/11/2015 68277 Revision Mastoidectomy Resulting In Modified Radical Completed Mastoidctomy 01/28/2014 85121 Fiberoptic Laryngoscopy Completed 09/29/2013 36135 Tympanometry Completed 09/29/2013 22723 Comprehensive Audiogram Completed 03/12/2013 13965 Tympanometry Completed 03/12/2013 73240 Comprehensive Audiogram Completed 01/21/2013 45516 Binocular Microscopy Completed 12/09/2012 55083 Tympanomastoidectomy W/Ossicular Chain Completed 09/25/2012 41679 Medical Records Completed 08/28/2012 03424 Tympanometry Completed 08/28/2012 17950 Comprehensive Audiogram Completed 06/05/2012 18924 Tympanometry Completed 06/05/2012 23903 Comprehensive Audiogram Completed 03/04/2012 68578 Binocular Microscopy Completed 11/19/2011 06699 Nasal Endoscopy, Diagnostic Completed 07/06/2011 78070 Tympanometry Completed 07/06/2011 66336 Comprehensive Audiogram Completed 07/03/2011 26825 Tympanometry Completed 07/03/2011 13253 Binocular Microscopy Completed 11/03/2010 67315 Fiberoptic Laryngoscopy Completed 09/19/2010 67979 Tympanometry Completed 05/24/2010 80984 Tympanometry Completed 05/24/2010 12872 Comprehensive Audiogram Completed 11/09/2009 47178 Tympanometry Completed 04/07/2009 24064 Tympanometry Completed 03/30/2009 83305 Binocular Microscopy Completed 03/10/2009 02352 Tympanometry Completed 03/10/2009 37130 Comprehensive Audiogram Completed 04/26/2008 06450 Nasal Endoscopy, Diagnostic Completed 01/15/2008 65892 Fiberoptic Laryngoscopy Completed 01/05/2008 41964 No Show Fee Completed 11/04/2007 64621 Demonstration/Eval. Of Patient Utilization Of Completed Spacer/Nebulizer 11/04/2007 96599 Respiratory Flow Volume Loop Completed 11/04/2007 90294 Bronchospasm Evaluation Completed 07/24/2007 60682 Prick Test Completed 07/24/2007 37474 Prick Test Completed 07/11/2007 61592 Nasal Endoscopy, Diagnostic Completed 04/02/2007 32394 Nasopharyngoscopy Completed 01/31/2007 08381 Tympanometry Completed 01/31/2007 31761 Tympanometry Completed 01/31/2007 15822 Comprehensive Audiogram Completed 01/31/2007 76979 Comprehensive Audiogram Completed 01/31/2007 79365 Nasal Endoscopy, Diagnostic Completed 12/24/2006 75500 Tympanostomy W/Tube Local Or Topical Anes. Completed 12/02/2006 02581 Tympanometry Completed 12/02/2006 10318 Tympanometry Completed 12/02/2006 01046 Comprehensive Audiogram Completed 12/02/2006 13206 Comprehensive Audiogram Completed 10/26/2005 67361 Nasal Endoscopy, Diagnostic Completed 04/06/2005 42412 Nasal Endoscopy, Diagnostic Completed 09/13/2004 31395 Nasal Endoscopy W/ Debridement Completed 05/24/2004 98882 Nasal Endoscopy W/ Debridement Completed 05/02/2004 74232 Nasal Endoscopy W/Maxllary Antrostomy W/Excision Of Completed Poylp 05/02/2004 13332 Nasal Endoscopy With Ethmoidectomy, Partial Completed 04/28/2004 95736 Nasal Endoscopy, Diagnostic Completed 03/27/2004 67101 Nasal Endoscopy, Diagnostic Completed 03/01/2004 58258 Nasal Endoscopy, Diagnostic Completed 07/01/2003 60757 No Show Fee Completed Encounters Type Date Location Provider CPT E/M Dx Office Visit 06/06/2017 11:15a [place] 05/20/07 Cezar Guerra 56636 H71.12 MD Office Visit 02/15/2017 11:00a [place],After 05/20/07 Cezar Guerra 73585 H71.12 H72.2x1 Office Visit 08/28/2016 10:30a [place],After 05/20/07 [place] [address] H71.12 Office Visit 04/26/2016 2:45p [place],After 05/20/07 [place] [address] J31.0 H71.12 Office Visit 12/30/2015 11:00a [place],After 05/20/07 [place] [address] H71.12 H60.11 Office Visit 09/29/2015 11:00a [place],After 05/20/07 [place] [address] H71.12 Office Visit 05/25/2015 3:45p [place],After 05/20/07 [place] [address] L23.3 Office Visit 03/24/2015 11:30a [place],After 05/20/07 [place] [address] H71.12 Office Visit 03/17/2015 10:30a [place],After 05/20/07 [place] [address] H71.12 Office Visit 03/03/2015 11:00a [place],After 05/20/07 [place] [address] H65.32 H71.12 Office Visit 12/31/2014 10:15a [place],After 05/20/07 [place] [address] 381.29 385.32 Office Visit 10/28/2014 3:45p [place],After 05/20/07 [place] [address] 381.29 385.32 Office Visit 04/01/2014 9:45a [place],After 05/20/07 [place] [address] 381.29 Office Visit 01/28/2014 10:45a [place],After 05/20/07 [place] [address] 381.29 787.20 Office Visit 11/04/2013 10:15a [place],After 05/20/07 [place] [address] 786.2 787.20 493.00 Office Visit 09/29/2013 10:00a [place],After 05/20/07 [place] [address] 389.03 389.10 462-2 Office Visit 09/17/2013 10:30a [place],After 05/20/07 [place] [address] 380.10 389.03 Office Visit 09/11/2013 10:30a [place],After 05/20/07 [place] [address] 380.10 381.29 Office Visit 07/23/2013 9:45a [place],After 05/20/07 [place] [address] 385.32 Office Visit 04/09/2013 11:00a [place],After 05/20/07 [place] [address] 472.0 385.32 Office Visit 03/12/2013 10:30a [place],After 05/20/07 [place] [address] 385.32 389.03 389.10 477.8 Office Visit 01/21/2013 4:00p [place],After 05/20/07 [place] [address] 385.32 381.29 Office Visit 12/03/2012 1:45p [place],After 05/20/07 [place] [address] 385.32 381.29 389.03 Office Visit 08/28/2012 2:15p [place],After 05/20/07 Mikala Cordova [employer] 34485 385.32 381.29 Office Visit 06/05/2012 1:30p [place],After 05/20/07 [place] [address] 385.32 381.29 389.03 389.10 Office Visit 05/21/2012 11:30a [place],After 05/20/07 [place] [address] 385.32 Office Visit 05/07/2012 11:15a [place],After 05/20/07 [place] [address] 381.29 Office Visit 03/13/2012 3:15p [place],After 05/20/07 [place] [address] 381.29 Office Visit 03/04/2012 9:30a [place]After 05/20/07 Mikala Cordova [employer] 33406 381.3 Office Visit 11/19/2011 2:45p [place],After 05/20/07 Mikala Cordova [employer] 74858 350.2 472.0 Office Visit 09/18/2011 3:30p [place],After 05/20/07 Mikala Cordova [employer] 87199 477.8 493.01 Office Visit 09/05/2011 11:15a [place],After 05/20/07 [place] [address] 389.03 389.10 384.82 Office Visit 07/03/2011 4:00p [place],After 05/20/07 Mikala Cordova [employer] 29979 384.82 Office Visit 02/22/2011 1:45p [place],After 05/20/07 [place] [address] 462 384.20 381.81 389.03 389.10 Office Visit 11/03/2010 9:30a [place],After 05/20/07 Mikala Cordova [employer] 48437 478.19 530.81 493.00 530.11 Office Visit 10/10/2010 2:00p [place],After 05/20/07 Mikala Cordova [employer] 27515 384.20 477.8 493.00 Office Visit 09/19/2010 1:30p [place],After 05/20/07 Mikala Cordova [employer] 14891 384.20 381.81 Office Visit 05/24/2010 2:00p [place],After 05/20/07 [place] [address] 389.03 389.10 381.81 384.20 Office Visit 11/09/2009 11:30a [place],After 05/20/07 Mikala Cordova [employer] 35925 384.20 381.81 350.2 Office Visit 10/19/2009 1:30p [place],After 05/20/07 [place] [address] 477.8 384.20 381.81 Office Visit 09/30/2009 10:00a [place],After 05/20/07 [place] [address] 477.8 493.00 384.20 389.03 Office Visit 04/07/2009 3:45p [place],After 05/20/07 [place] [address] 384.20 388.71 381.81 Office Visit 03/30/2009 2:30p [place],After 05/20/07 [place] [address] 384.20 388.71 Office Visit 03/10/2009 1:45p [place],After 05/20/07 [place] [address] 388.31 478.1-4 Office Visit 12/28/2008 4:00p [place],After 05/20/07 [place] [address] 478.19 478.1-4 477.8 493.00 Office Visit 07/28/2008 3:15p [place],After 05/20/07 [place] [address] 350.2 473.0 473.2 471.8 Office Visit 05/04/2008 2:45p [place],After 05/20/07 Julio Arreola, 31394 493.01 M.D. 530.81 780.57 278.01 429.3 Office Visit 04/28/2008 1:48p [place],After 05/20/07 Julio Arreola, 16329 493.00 M.D. Office Visit 04/26/2008 9:30a [place],After 05/20/07 [place] [address] 473.0 530.81 Office Visit 03/11/2008 4:00p [place],After 05/20/07 [place] [address] 780.57 381.81 389.03 Office Visit 02/16/2008 10:15a [place],After 05/20/07 [place] [address] 780.57 530.11 Office Visit 12/04/2007 3:30p [place],After 05/20/07 Mikala Cordova [employer] 82204 530.81 477.8 493.90 Office Visit 11/04/2007 10:15a [place],After 05/20/07 Mikala Cordova [employer] 33457 478.19 478.1-4 477.8 Office Visit 10/23/2007 3:00p [place],After 05/20/07 Mikala Cordova FIN[employer] 61824 478.1-4 381.3 493.00 477.0 477.8 Office Visit 07/31/2007 10:00a [place],After 05/20/07 Mikala Cordova [employer] 84210 477.8 477.0 Office Visit 07/11/2007 3:30p [place],After 05/20/07 [place] [address] 477.8 478.19 478.1-4 Office Visit 05/15/2007 9:00a [place],After 05/20/07 [place] [address] 477.8 Office Visit 04/02/2007 2:15p [place],After 05/20/07 [place] [address] 477.8 471.8 389.2 381.81 474.12 Office Visit 03/03/2007 2:45p [place],After 05/20/07 [place] [address] 473.0 474.12 381.81 Office Visit 01/31/2007 3:15p [place],After 05/20/07 [place] [address] 381.81 389.2 471.8 474.12 Office Visit 12/02/2006 2:30p [place],After 05/20/07 [place] [address] 381.81 389.2 Office Visit 04/24/2006 9:45a [place],After 05/20/07 [place] [address] 471.8 473.0 461.0 Office Visit 07/11/2005 1:30p [place],After 05/20/07 [place] [address] 471.8 780.57 493.0 Office Visit 04/06/2005 1:30p [place],After 05/20/07 [place] [address] 473.2 471.8 389.03 Office Visit 05/09/2004 9:30a [place],After 05/20/07 Julio Arreola, 29027 473.2 M.D. 471.8 Office Visit 02/04/2004 9:45a [place],After 05/20/07 Dank Pat, 85875 780.57 M.D. Office Visit 05/28/2003 11:15a [place]After 05/20/07 Dank Pat, 86118 478.1 M.D. 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
--- NOTE | 2017-07-03 15:20 | RAD ---
INDICATION: Chest pain and shortness of breath COMPARISON: Chest x-ray dated June 27, 2017 TECHNIQUE: PA and lateral views of the chest were obtained. FINDINGS: Again seen is an implantable monitor tech device. The heart and mediastinum are normal in size and contour. The lungs are grossly clear. There is no evidence of large pleural effusion. Visualized bones are normal for the patient's age. There is no radiographic evidence of free air beneath the diaphragm IMPRESSION: No radiographic evidence of acute cardiopulmonary disease.
[2017-07-03 15:22] LABS: ABS Basophils 0 10^3/ul (0-0.2); ABS Eosinophils 0.2 10^3/ul (0-0.6); ABS Lymphocytes 1.7 10^3/ul (1.0-4.8); ABS Monocytes 0.7 10^3/ul (0-0.8); ABS Neutrophils 3.7 10^3/ul (1.5-7.7); ABS Nucleated RBC 0 10^3/ul; Eosinophil % 3.2 % (0-6); Hematocrit 45 % (42-52); Lymphocyte % 27.2 % (25-47); Mean Corpuscular HGB Conc 33 g/dl (31-36); Mean Corpuscular Hemoglobin 28 pg (27-31); Mean Corpuscular Volume 85 fL (80-94); Mean Platelet Volume 8 um3 (7.4-10.4); Nucleated Red Blood Cells % 0.1; Platelet Count 208 10^3/ul (150-450); Red Cell Distribution Width 15 % (10.5-15); White Blood Count 6.3 10^3/ul (3.5-10.8)
[2017-07-03 15:30] LABS: INR 0.98 (0.77-1.02)
[2017-07-03 15:38] LABS: EGFR Non-African American 64.6 (>60)
[2017-07-03 18:19] VITALS: BP 130/78
--- NOTE | 2017-07-03 21:08 | ED ---
Anais Kim Gabriel, scribed for Zhao Cadet MD on 07/03/17 at 1420 . Complex/Multi-Sys Presentation - HPI Summary HPI Summary: This patient is a 51 year old M presenting to [facility] with a chief complaint of a general illness that began 3 weeks ago. The patient rates the pain 10/10 in severity. Patient reports decreased appetite, asthma exacerbation, CP, upper extremity pain, and SOB. Symptoms aggravated by breathing. Pt has a sinus infection and he believes that this is causing the pain that radiates from his head to his waist. Pt just finished abx for sinus infection - History Of Current Complaint Chief Complaint: EDShortnessOfBreath Time Seen by Provider: 07/03/17 13:46 Hx Obtained From: Patient Onset/Duration: Lasting Weeks, Still Present Timing: Constant Severity Currently: Severe Severity Initially: Severe Associated Signs And Symptoms: Positive: Other - decreased appetite, asthma exacerbation, CP, upper extremity pain, and SOB - Allergies/Home Medications Allergies/Adverse Reactions: Allergies Allergy/AdvReac Type Severity Reaction Status Date / Time MS Penicillins [Penicillins] Allergy Severe Anaphylatic Verified 07/03/17 13:39 Shock MS Amoxicillin Allergy Unknown Swelling Verified 07/03/17 13:39 [From Augmentin XR] MS Clavulanic Acid Allergy Unknown Swelling Verified 07/03/17 13:39 [From Augmentin XR] VINEGAR Allergy Intermediate Hives Uncoded 07/03/17 13:39 MUSHROOMS Allergy Unknown Rash Uncoded 07/03/17 13:39 PMH/Surg Hx/FS Hx/Imm Hx Endocrine/Hematology History: Reports: Hx Anticoagulant Therapy - plavix Denies: Hx Diabetes, Hx Sickle Cell Disease, Hx Thyroid Disease Cardiovascular History: Reports: Hx Angina, Hx Cardiac Arrest, Hx Coronary Artery Disease, Hx Hypercholesterolemia, Hx Hypertension, Hx Myocardial Infarction, Other Cardiovascular Problems/Disorders - HEART DISEASE, CARDIAC EVENT MONITOR IMPLANTED Denies: Hx Congestive Heart Failure, Hx Pacemaker/ICD, Hx Valvular Heart Disease Respiratory History: Reports: Hx Asthma, Hx Sleep Apnea Denies: Hx Chronic Obstructive Pulmonary Disease (COPD) GI History: Reports: Hx Gastroesophageal Reflux Disease Denies: Hx Ulcer History: Reports: Hx Renal Disease - cysts, Other Problems/Disorders - bilat cyst on kidneys Musculoskeletal History: Reports: Hx Arthritis, Hx Back Problems, Other Musculoskeletal History - RANDEE Denies: Hx Scoliosis Sensory History: Reports: Hx Cataracts - right eye, Hx Contacts or Glasses, Hx Hearing Aid Denies: Hx Hearing Problem Opthamlomology History: Reports: Hx Cataracts - right eye, Hx Contacts or Glasses Neurological History: Reports: Hx Seizures, Hx Transient Ischemic Attacks (TIA) Denies: Hx Dementia, Hx Headaches, Other Neuro Impairments/Disorders Psychiatric History: Reports: Hx Depression Denies: Hx Panic Disorder - Cancer History Hx Chemotherapy: No - Surgical History Surgery Procedure, Year, and Place[place] [facility] [place] [facility] [place]. [place] left tympanoplasty WITH STAPES IMPLANT ([employer] MALLEOUS HEAD SERIAL # [id number] - PER [employer] INFORMATION SENT TO MRI ON ; IMPLANT IS STAINLESS STEEL STATES SOME DEGREE OF MAGNETISM TESTED MRI SAFE AT 1.5T ONLY - DR ANAYA APPROVED THIS INFORMATION FOR 1.5T ONLY). [facility] [place]. [place]VISION TYMPANOPLASTY/ MASTOIDECTOMY [facility] [place] ;. 2011 HEART CATH - NO STENTS ;. 2010 HEART CATH WITH cardiac stents x 4 (PROMUS DRUG-ELUTING STENT OKAY IN NORMAL MODE ONLY, MAX 720 GAUSS/CM @ 1.5T) [facility] [place] ;. REVEAL LINQ EVENT MONITOR PLACED- 12/15/15- ED CAME OVER W/ [employer] MACHINE & DID A DOWNLOAD SO THAT NOTHING WOULD BE ERASED Hx Anesthesia Reactions: Yes - SEIZURE LIKE ACTIVITY; REINTUBATION AFTER LEFT EAR 2012 - Immunization History Date of Tetanus Vaccine: UTD Date of Influenza Vaccine: 03/05 Infectious Disease History: No Infectious Disease History: Denies: Hx Clostridium Difficile, Hx Hepatitis, Hx Human Immunodeficiency Virus (HIV), Hx of Known/Suspected MRSA, Hx Shingles, Hx Tuberculosis, Hx Known/ Suspected VRE, Hx Known/Suspected VRSA, History Other Infectious Disease, Traveled Outside the [place] in Last 30 Days - Family History Known Family History: Positive: Cardiac Disease, Hypertension, Diabetes - Social History Alcohol Use: Occasionally Hx Substance Use: No Substance Use Type: Reports: None Hx Tobacco Use: Yes Smoking Status (MU): Former Smoker Type: Cigarettes Length of Time of Smoking/Using Tobacco: 10-12 YRS Have You Smoked in the Last Year: No Review of Systems Positive: Other - decreased appetite Positive: Chest Pain Positive: Shortness Of Breath, Other - asthma exacerbation Positive: Other - torso pain All Other Systems Reviewed And Are Negative: Yes Physical Exam - Summary Physical Exam Summary: Appearance: The patient is an obese male in no acute distress and in no acute pain. Skin: The skin is warm and dry and skin color reflects adequate perfusion. HEENT: The head is normocephalic and atraumatic. The pupils are equal and reactive. The conjunctivae are clear and without drainage. Nares are patent and without drainage. Mouth reveals moist mucous membranes and the throat is without erythema and exudate. The external ears are intact. The ear canals are patent and without drainage. The tympanic membranes are intact. Neck: the neck is supple with full range of motion and non-tender. There are no carotid bruits. There is no neck vein distension. Respiratory: Chest is non-tender. Lungs are clear to auscultation and breath sounds are symmetrical and equal. Cardiovascular: Heart is regular rate and rhythm. There is no murmur or rub auscultated. There is no peripheral edema and pulses are symmetrical and equal. Abdomen: The abdomen is soft and non-tender. There are normal bowel sounds heard in all four quadrants and there is no organomegaly palpated. Musculoskeletal: There is no back tenderness noted. Extremities are non-tender with full range of motion. There is good capillary refill. There is no peripheral edema or calf tenderness elicited. Neurological: Patient is alert and oriented to person, place and time. The patient has symmetrical motor strength in all four extremities. Cranial nerves are grossly intact. Deep tendon reflexes are symmetrical and equal in all four extremities. Psychiatric: The patient has an appropriate affect and does not exhibit any anxiety or depression. Triage Information Reviewed: Yes Vital Signs On Initial Exam: Initial Vitals Temp Pulse Resp BP Pulse Ox 97.3 F 68 20 134/74 99 07/03/17 13:32 07/03/17 13:32 07/03/17 13:32 07/03/17 13:32 07/03/17 13:32 Vital Signs Reviewed: Yes Diagnostics - Vital Signs Vital Signs Temp Pulse Resp BP Pulse Ox 07/03/17 14:00 66 14 98 07/03/17 13:54 67 16 97 07/03/17 13:51 97 F 66 15 133/77 97 07/03/17 13:32 97.3 F 68 20 134/74 99 - Laboratory Lab Results: Lab Results 02/14/18 02/14/18 02/14/18 Range/Units 14:55 14:55 14:55 WBC 6.3 (3.5-10.8) 10^3/ul RBC 5.30 (4.0-5.4) 10^6/ul Hgb 15.0 (14.0-18.0) g/dl Hct 45 (42-52) % MCV 85 (80-94) fL MCH 28 (27-31) pg MCHC 33 (31-36) g/dl RDW 15 (10.5-15) % Plt Count 208 (150-450) 10^3/ul MPV 8 (7.4-10.4) um3 Neut % (Auto) 57.8 (38-83) % Lymph % (Auto) 27.2 (25-47) % [place] % (Auto) 11.0 H (1-9) % Eos % (Auto) 3.2 (0-6) % Baso % (Auto) 0.8 (0-2) % Absolute Neuts (auto) 3.7 (1.5-7.7) 10^3/ul Absolute Lymphs (auto) 1.7 (1.0-4.8) 10^3/ul Absolute Monos (auto) 0.7 (0-0.8) 10^3/ul Absolute Eos (auto) 0.2 (0-0.6) 10^3/ul Absolute Basos (auto) 0 (0-0.2) 10^3/ul Absolute Nucleated RBC 0 10^3/ul Nucleated RBC % 0.1 INR (Anticoag Therapy) 0.98 (0.77-1.02) D-Dimer, Quantitative < 200 (Less Than 230) ng/mL Sodium 136 (133-145) mmol/L Potassium 3.7 (3.5-5.0) mmol/L Chloride 101 (101-111) mmol/L Carbon Dioxide 29 (22-32) mmol/L Anion Gap 6 (2-11) mmol/L BUN 10 (6-24) mg/dL Creatinine 1.18 H (0.67-1.17) mg/dL Est GFR ( Amer) 83.0 (>60) Est GFR (Non-Af Amer) 64.6 (>60) BUN/Creatinine Ratio 8.5 (8-20) Glucose 81 (70-100) mg/dL Lactic Acid (0.5-2.0) mmol/L Calcium 9.7 (8.6-10.3) mg/dL Total Bilirubin 0.60 (0.2-1.0) mg/dL AST 30 (13-39) U/L ALT 51 (7-52) U/L Alkaline Phosphatase 116 H (34-104) U/L Troponin I 0.00 (<0.04) ng/mL Total Protein 7.5 (6.4-8.9) g/dL Albumin 4.2 (3.2-5.2) g/dL Globulin 3.3 (2-4) g/dL Albumin/Globulin Ratio 1.3 (1-3) 07/03/17 07/03/17 Range/Units 14:55 17:20 WBC (3.5-10.8) 10^3/ul RBC (4.0-5.4) 10^6/ul Hgb (14.0-18.0) g/dl Hct (42-52) % MCV (80-94) fL MCH (27-31) pg MCHC (31-36) g/dl RDW (10.5-15) % Plt Count (150-450) 10^3/ul MPV (7.4-10.4) um3 Neut % (Auto) (38-83) % Lymph % (Auto) (25-47) % [place] % (Auto) (1-9) % Eos % (Auto) (0-6) % Baso % (Auto) (0-2) % Absolute Neuts (auto) (1.5-7.7) 10^3/ul Absolute Lymphs (auto) (1.0-4.8) 10^3/ul Absolute Monos (auto) (0-0.8) 10^3/ul Absolute Eos (auto) (0-0.6) 10^3/ul Absolute Basos (auto) (0-0.2) 10^3/ul Absolute Nucleated RBC 10^3/ul Nucleated RBC % INR (Anticoag Therapy) (0.77-1.02) D-Dimer, Quantitative (Less Than 230) ng/mL Sodium (133-145) mmol/L Potassium (3.5-5.0) mmol/L Chloride (101-111) mmol/L Carbon Dioxide (22-32) mmol/L Anion Gap (2-11) mmol/L BUN (6-24) mg/dL Creatinine (0.67-1.17) mg/dL Est GFR ( Amer) (>60) Est GFR (Non-Af Amer) (>60) BUN/Creatinine Ratio (8-20) Glucose (70-100) mg/dL Lactic Acid 1.7 (0.5-2.0) mmol/L Calcium (8.6-10.3) mg/dL Total Bilirubin (0.2-1.0) mg/dL AST (13-39) U/L ALT (7-52) U/L Alkaline Phosphatase (34-104) U/L Troponin I 0.00 (<0.04) ng/mL Total Protein (6.4-8.9) g/dL Albumin (3.2-5.2) g/dL Globulin (2-4) g/dL Albumin/Globulin Ratio (1-3) Result Diagrams: 07/03/17 14:55 07/03/17 14:55 Lab Statement: Any lab studies that have been ordered have been reviewed, and results considered in the medical decision making process. - Radiology CXR Radiology Interpretation Completed By: Radiologist - No radiographic evidence of acute cardiopulmonary disease. ED physician has reviewed this radiology report. - EKG 14:43 Cardiac Rate: NL EKG Rhythm: Sinus Rhythm - at 65 BPM EKG Comparison: No Significant Change - in comparison to EKG from 06/07/17 Complex Multi-Symp Course/Dx Course Of Treatment: Mr. Glaser presented with a myriad of complaints which seemed to boil down to pleuritic CP that he has continued to have since being treated with an antibiotic for bronchitis about a week ago. He wasn't visibly SOB and his W/U was normal. I'm not sure what more to do for him except time. - Diagnoses Provider Diagnoses: Chest pain, Viral URI Discharge - Discharge Plan Condition: Stable Disposition: HOME Patient Education Materials: Chest Pain (ED), Viral Syndrome (ED) Referrals: Carlin Chu MD [Primary Care Provider] - 4 Days Additional Instructions: RETURN TO EMERGENCY DEPARTMENT FOR ANY NEW OR WORSENING SYMPTOMS The documentation as recorded by the Anais brown Gabriel accurately reflects the service I personally performed and the decisions made by me, Zhao Cadet MD.
== END 2017-07-03 18:16 | disposition home or self-care (01) ==
LOC: ED 13:31
DX: R07.9 Chest pain, unspecified (principal); J06.9 Acute upper respiratory infection, unspecified; Z88.3 Allergy status to other anti-infective agents; Z88.0 Allergy status to penicillin
CPT/HCPCS: 36415; 71046; 80053; 83605; 84484; 85025; 85379; 85610; 93005; 99283

== ENCOUNTER 2017-07-22 14:08 | Emergency (ER) | payer MEDICARE, MEDICAID ==
--- NOTE | 2017-07-22 17:02 | RAD ---
Indication: Nasal obstruction. CT of the sinuses was obtained in the axial plane. Coronal and sagittal reconstructed images were obtained. There is mucosal thickening of the maxillary sinuses with air-fluid levels in the left maxillary sinus. There appears to BE postoperative changes with antrectomy in the right maxillary sinus. There is mucosal thickening of the ethmoid air cells. Mucus retention cyst is noted in the sphenoid sinus. No evidence of nasal obstruction is noted. The frontal sinuses are clear. No evidence of paradoxical turbinates are noted. IMPRESSION: Mucosal thickening of the maxillary sinuses with air-fluid level. Ethmoid sinusitis is noted. Patient is status post right medial antrectomy. No evidence of nasal obstruction is identified.
[2017-07-22 17:51] VITALS: BP 153/66
--- NOTE | 2017-07-22 18:40 | ED ---
Throat Pain/Nasal Congestion - HPI Summary HPI Summary: Patient presents for the third time with a chief complaint of tenderness to the sinuses. He states he has been on 2 rounds of antibiotics and continues to have a difficult time breathing. He states the majority had this pain and what he considers occlusive symptoms is directly between the eyes and also affecting the bilateral maxillary sinuses. History of sinus infections. Recently placed on 2 courses of doxycycline. He states this continues to become worse. Endorses postnasal drip and nasal drainage. Endorses 8 out of 10 pain to the area between the eyes most notably over the ethmoid sinuses and a 3 out of 10 pain over the maxillary sinuses. Denies any fevers, sweats, chills. Denies any other recent illness. Denies flu or other sick contacts. - History of Current Complaint Chief Complaint: EDGeneral Time Seen by Provider: 07/22/17 15:01 Hx Obtained From: Patient Onset/Duration: Gradual Onset Severity: Moderate Associated Signs And Symptoms: Positive: Dysphagia - Epiglottits Risk Factors Epiglottis Risk Factors: Negative - Allergies/Home Medications Allergies/Adverse Reactions: Allergies Allergy/AdvReac Type Severity Reaction Status Date / Time amoxicillin [From Augmentin] Allergy Swelling Verified 07/22/17 14:56 clavulanic acid Allergy Swelling Verified 07/22/17 14:56 [From Augmentin] Penicillins Allergy Anaphylatic Verified 07/22/17 14:56 Shock VINEGAR Allergy Intermediate Hives Uncoded 07/22/17 14:56 MUSHROOMS Allergy Unknown Rash Uncoded 07/22/17 14:56 PMH/Surg Hx/FS Hx/Imm Hx Previously Healthy: Yes Endocrine/Hematology History: Reports: Hx Anticoagulant Therapy - plavix Denies: Hx Diabetes, Hx Sickle Cell Disease, Hx Thyroid Disease Cardiovascular History: Reports: Hx Angina, Hx Cardiac Arrest, Hx Coronary Artery Disease, Hx Hypercholesterolemia, Hx Hypertension, Hx Myocardial Infarction, Other Cardiovascular Problems/Disorders - HEART DISEASE, CARDIAC EVENT MONITOR IMPLANTED Denies: Hx Congestive Heart Failure, Hx Pacemaker/ICD, Hx Valvular Heart Disease Respiratory History: Reports: Hx Asthma, Hx Sleep Apnea Denies: Hx Chronic Obstructive Pulmonary Disease (COPD) GI History: Reports: Hx Gastroesophageal Reflux Disease Denies: Hx Ulcer History: Reports: Hx Renal Disease - cysts, Other Problems/Disorders - bilat cyst on kidneys Musculoskeletal History: Reports: Hx Arthritis, Hx Back Problems, Other Musculoskeletal History - RANDEE Denies: Hx Scoliosis Sensory History: Reports: Hx Cataracts - right eye, Hx Contacts or Glasses, Hx Hearing Aid Denies: Hx Hearing Problem Opthamlomology History: Reports: Hx Cataracts - right eye, Hx Contacts or Glasses Neurological History: Reports: Hx Seizures, Hx Transient Ischemic Attacks (TIA) Denies: Hx Dementia, Hx Headaches, Other Neuro Impairments/Disorders Psychiatric History: Reports: Hx Depression Denies: Hx Panic Disorder - Cancer History Hx Chemotherapy: No - Surgical History Surgery Procedure, Year, and Place: APR 2004 sinus [facility] [place] [facility] [place] ;. 2007 [place] knee arthrosc[place] [facility] [place] [facility] [place] ;. 2012 left tympanoplasty WITH STAPES IMPLANT ([employer] MALLEOUS HEAD SERIAL # [id number] - PER [facility] INFORMATION SENT TO MRI ON ; IMPLANT IS STAINLESS STEEL STATES SOME DEGREE OF MAGNETISM TESTED MRI SAFE AT 1.5T ONLY - DR ANAYA APPROVED THIS INFORMATION FOR 1.5T ONLY). [facility] [facility] [place] ;. 2014 LEFT REVISION TYMPANOPLASTY/ MASTOIDECTOMY [facility] [place] ;. 2011 HEART CATH - NO STENTS ;. 2010 HEART CATH WITH cardiac stents x 4 (PROMUS DRUG-ELUTING STENT OKAY IN NORMAL MODE ONLY, MAX 720 GAUSS/CM @ 1.5T) [facility] [place] ;. REVEAL LINQ EVENT MONITOR PLACED- 12/15/15- ED CAME OVER [employer]/ [facility] MACHINE & DID A DOWNLOAD SO THAT NOTHING WOULD BE ERASED Hx Anesthesia Reactions: Yes - SEIZURE LIKE ACTIVITY; REINTUBATION AFTER LEFT EAR 2012 - Immunization History Date of Tetanus Vaccine: UTD Date of Influenza Vaccine: 03/05 Infectious Disease History: No Infectious Disease History: Denies: Hx Clostridium Difficile, Hx Hepatitis, Hx Human Immunodeficiency Virus (HIV), Hx of Known/Suspected MRSA, Hx Shingles, Hx Tuberculosis, Hx Known/ Suspected VRE, Hx Known/Suspected VRSA, History Other Infectious Disease, Traveled Outside the [place] in Last 30 Days - Family History Known Family History: Positive: Cardiac Disease, Hypertension, Diabetes - Social History Occupation: Unemployed Lives: With Family Alcohol Use: Occasionally Hx Substance Use: No Substance Use Type: Reports: None Hx Tobacco Use: Yes Smoking Status (MU): Former Smoker Type: Cigarettes Length of Time of Smoking/Using Tobacco: 10-12 YRS Have You Smoked in the Last Year: No Review of Systems Constitutional: Negative Negative: Fever, Chills, Fatigue, Skin Diaphoresis Eyes: Negative Positive: Nasal Discharge, Other - frontal, ethmoid, maxillary sinus tenderness Cardiovascular: Negative Respiratory: Negative Negative: Abdominal Pain, Vomiting, Diarrhea, Nausea Genitourinary: Negative Positive: no symptoms reported, see HPI Skin: Negative Neurological: Negative Psychological: Normal All Other Systems Reviewed And Are Negative: Yes Physical Exam Triage Information Reviewed: Yes Vital Signs On Initial Exam: Initial Vitals Temp Pulse Resp BP Pulse Ox 98.3 F 63 16 158/71 98 07/22/17 14:24 07/22/17 14:24 07/22/17 14:24 07/22/17 14:24 07/22/17 14:24 Vital Signs Reviewed: Yes Appearance: Positive: Well-Appearing, Well-Nourished Skin: Positive: Warm, Skin Color Reflects Adequate Perfusion Head/Face: Positive: Normal Head/Face Inspection Eyes: Positive: EOMI, SOLO, Conjunctiva Clear ENT: Positive: Nasal congestion, Nasal drainage, Sinus tenderness - Most notably over the ethmoid sinus cavities Neck: Positive: Supple, No Lymphadenopathy Respiratory/Lung Sounds: Positive: Clear to Auscultation, Breath Sounds Present Cardiovascular: Positive: RRR, Pulses are Symmetrical in both Upper and Lower Extremities Musculoskeletal: Positive: Normal, Strength/ROM Intact Neurological: Positive: Speech Normal Psychiatric: Positive: Normal, Affect/Mood Appropriate AVPU Assessment: Alert Diagnostics - Vital Signs Vital Signs Temp Pulse Resp BP Pulse Ox 07/22/17 17:50 98.3 F 61 15 153/66 98 07/22/17 14:24 98.3 F 63 16 158/71 98 - Laboratory Lab Statement: Any lab studies that have been ordered have been reviewed, and results considered in the medical decision making process. EENT Course/Dx - Course Course Of Treatment: During the course treatment, the patient is evaluated for sinus pressure and possible infection. He has been treated here for similar symptoms 2. He's been treated with doxycycline without good effect. CT maxillary sinus obtained which show mucosal thickening of the maxillary sinuses with air-fluid levels. Ethmoid sinusitis is noted. Patient is status post right medial antrectomy. No evidence of nasal obstruction is identified. I have given him Levaquin for antibiotic resistant bacterial sinusitis and referral to Dr. Guerra. He states he is seen Dr. Guerra in the past. - Diagnoses Provider Diagnoses: Sinusitis Discharge - Discharge Plan Condition: Stable Disposition: HOME Prescriptions: Levofloxacin TAB* [Levaquin TAB*] 500 mg PO DAILY #7 tab Patient Education Materials: Sinusitis (ED) Referrals: Cezar Guerra MD [Medical Doctor] - Carlin Chu MD [Primary Care Provider] - Additional Instructions: Take 1 tab Levaquin daily 7 days Please follow-up with Dr. Guerra regarding your chronic sinusitis
== END 2017-07-22 17:50 | disposition home or self-care (01) ==
LOC: ED 14:08
DX: J32.2 Chronic ethmoidal sinusitis (principal); Z87.891 Personal history of nicotine dependence; Z98.890 Other specified postprocedural states; Z88.1 Allergy status to other antibiotic agents; Z88.0 Allergy status to penicillin
CPT/HCPCS: 70486; 99282

== ENCOUNTER 2017-10-20 11:48 | Emergency (ER) | payer MEDICARE, MEDICAID ==
--- OUTSIDE RECORDS SUMMARY | 2017-10-20 12:12 | XMS REPORT ---
:1965 External Reference #:[id number] Author Organization [facility] Address [address] [place] [address] Phone [phone] Care Team Providers Name Role Phone Carlin Chu MD Care Team Information Ice Bag Assembler Unavailable Carlin Chu MD Primary Care Physician Unavailable Payers Type Date Identification Numbers Payment Provider Subscriber Medicare Primary Effective: Policy Number: Medicare-[place] 1997 [id number] Govn SRVS PayID: [id number] [address] [place] [address] Medigap Part B Policy Number: [id number] Medicaid/C Cas [place] Group Number: [id number] Medicare Primary Group Name: [id number] [address] PayID: [id number] [place] [address] Problems Date Description Provider Status Onset: 02/23/2011 Acute pharyngitis Cezar Guerra MD Active Onset: 02/23/2011 Perforation of tympanic membrane Cezar Guerra MD Active Onset: 02/23/2011 Dysfunction of eustachian tube Cezar Guerra MD Active Onset: 02/23/2011 Middle ear conductive hearing loss Cezar Guerra MD Active Onset: 02/23/2011 Sensorineural hearing loss Cezar Guerra MD Active Onset: 02/23/2011 Disorder of nasal cavity Mikala Cordova ELECTRICAL ENGINEER MEP Active Onset: 02/23/2011 Gastroesophageal reflux disease Mikala Cordova ELECTRICAL ENGINEER MEP Active Onset: 02/23/2011 Extrinsic asthma without status Mikala Cordova ELECTRICAL ENGINEER MEP Active asthmaticus Onset: 02/23/2011 Peptic reflux disease Mikala Cordova ELECTRICAL ENGINEER MEP Active Onset: 02/23/2011 Allergic rhinitis Mikala Cordova ELECTRICAL ENGINEER MEP Active Family History Date Family Member(s) Problem(s) [...] Form Strength Qnty SIG Indications Ordering Provider Ciprodex 09/05 Active Suspension 0.3-0.1% 7.500 4 drops ml left ear Eddie Guerra twice a MD day for 10 days Methylprednisolon 08/13 Active TBPK 4mg 1pack take as directed Eddie Guerra MD Mupirocin 04/26 Active Ointment 2% 22gm apply to both Eddie Guerra nostril twice a day Triamcinolone 05/25 Active Cream 0.1% 15gm Apply to left ear Eddie Guerra twice MD daily for 1 week Percocet 05/04 Active Tablets 5-325mg 30tab 1-2 tabs s by mouth Eddie Guerra every 4-6 MD hours as needed for pain Levofloxacin 05/04 Active Tablets 500mg 10tab 1 by mouth s every day Eddie Guerra MD Ciprodex 09/11 Active Suspension 0.3-0.1% 1Bott 4 drops to le left ears Eddie Guerra, twice a MD day apply rebate rx bin: [id number] rxpcn: loyalty rxgrp:[id number] front services agent: ([id number]) id#[id number] 25 Oxycodone/Acetami 12/03 Active Tablets 5-325mg 30tab 1-2 tabs Julio chacon s by mouth Strominge every 4-6 r, M.D. hours as needed for pain Ipratropium 11/18 Active Solution 0.06% 6unit 2 to 4 J31.0 Julio N. Lemitar s sprays in [facility] each Jacobo akbar nostril 4 times a day as needed for rhinitis Omeprazole 11/[address] 40mg 60cap 40mg po 530.81 Julio N. /2010 s bid for 1 Stromcardinal [facility] month for Jacobo akbar esophagiti s Fluticasone Nasal 09/20 Active 50mcg 1unit 2 sprays Cezar [place] /2010 s each side Eddie Guerra, bid Astepromie Nasal 09/16 Active 0.15% 205 1unit 2 sprays Julio N. [place] /2009 mcg s once a day [facility] Jacobo akbar Singulair 11/21 Active Tabs 10mg 30tab 1qd - Take 477.0 Cezar s One Tablet Eddie Guerra By Mouth Every Day Advair Hfa 10/22 Active Aerosol 115/21 1unit 2 Puffs 478.19 Julio NSandie s bid With [facility] Spacer Jacobo akbar Please Provide Spacer Albuterol Active Aerosol 90mcg/Dos 2unit 2 Puffs Cezar Inhalation e s Q4H prn Eddie Guerra MD Clopidrogel Active Tablets 75mg Isosorbide Active 60mg 1 po qd Unknown Dinitrate Bystolic Active 5mg qd Simvastatin Active ?mg oen po qd Kimberley Carlin SANTIAGO Sertraline HCL Active ?mg one po qd Kimberley, Cariln SANTIAGO Aspirin Active Tablets DR 325mg Triamterene/Savanna Active Unknown chlorothiazide Nitroglycerin Active ?mg prn Only Kimberley Carlin SANTIAGO Ranexa Active Tablets ER 500mg 1 po bid 12HR Atorvastatin Active Tablets 40mg 1 po qd Unknown Calcium Klor-Con M20 Active Tablets ER 20Meq Stefek,Pa john Centeno Metoprolol Active Tablets ER 50mg Unknown Succinate 24HR Clopidogrel Active Tablets 75mg Stefek,Pa Bisulfate /0000 ul M.DSandie Triamterene/Savanna Active Capsules 37.5-25mg Kimberley, chlorothiazide /0000 Carlin SANTIAGO Advair Diskus Active Aerosol 250-50mcg Kimberley, /0000 /Dose Carlin SANTIAGO Proair HFA Active Aerosol 108(90Bas Kimberley, /0000 e) Carlin SANTIAGO mcg/Act Fluticasone Active Suspension 50mcg/Act Unknown Propionate Atorvastatin Active Tablets 20mg StefekPa Calcium /0000 ul M.DSandie Famotidine Active Tablets 20mg Unknown /0000 Ofloxacin 12/17 Hx Solution 0.3% 1unit 4 drops to Julio Swift s affected Strominge - ear daily Jacobo akbar 03/12 Ciprodex 12/15 Hx Suspension 0.3-0.1% 2unit 4 drops Julio Swift s infected Strominge - ear bid Jacobo akbar 03/12 rebate rxbin: [id number] rxpcn: loyalty rxgrp: [id number] front services agent: ([id number]) id: [id number] Ciprodex 08/28 Hx Suspension 0.3-0.1% 2unit 4 drops 385.32 Julio NSandie s infected Strominge - ear bid Jacobo akbar 12/02 rebate rxbin: [id number] rxpcn: loyalty rxgrp: [id number] front services agent: ([id number]) id: [id number] Levofloxacin 07/23 Hx Tablets 500mg 10tab 1 po qd s Eddie Guerra, - 12/02 Oxycodone/Acetami 07/23 Hx Tablets 5-325mg 30tab 1-2 tabs Cezar s by mouth Eddie Guerra, - every 4-6 12/02 hours needed for pain Ciprodex 03/04 Hx Suspension 0.3-0.1% 2unit 4 drops 381.3 s infected Eddie Guerra - ear bid x 07/23 14 days /2012 apply rebate rxbin: [id number] rxpcn: loyalty rxgrp: [id number] front services agent: [id number]) id: [id number] Bacitracin 11/18 Hx 1Tube apply to 472.0 Julio Swift Oint rim of Tani - nose both Jacobo akbar 12/02 sides in the am and the pm. Flovent HFA 09/17 Hx Aerosol 110mcg/Ac 1unit 2 puff bid 493.01 Julio Swift t s Tani akbar M.D. 12/02 Omnaris 09/19 Hx Suspension 50mcg/Act 90day 2 sprays Julio Swift s each Tani - nostril Jacobo akbar 09/17 Percocet 06/30 Hx Tablets 5-325mg 30tab 1-2 tabs s by mouth Pipe Fernando every 4-6 01/07 hours needed for pain Ciprofloxacin HCL 06/30 Hx Tablets 500mg 14tab 1 tablet s twice a Pipe Fernando day for 7 Aciphex 04/[address] 20mg 30tab 1 po Daily Julio Jamison s Tani akbar M.D. 05/24 Mucinex DM 03/10 Hx Tablets ER 60-1200 5Days 1 op qd 478.1-[facility] Fernando MD 09/30 Fexofenadine HCL 12/28 Hx Tabs 180mg 30tab 1qd - Take s One Tablet Pipe Fernando By Mouth 05/24 Every Medrol Dosepak 07/28 Hx Tablets 4mg 1Pack Take as 350.2 Directed Pipe Fernando MD 05/24 Prednisone 05/04 Hx Tablets 20mg 5Days 3 PO qd Julio Swift With Food Tani akbar M.D. 12/28 Augmentin 04/26 Hx Tablets 875mg 14Day 1 po bid 473.0 Julio Swift s with food Tani akbar M.D. 05/04 Aciphex 12/[address] 20mg 60tab 1 po bid 530.81 s Eddie Guerra, - 09/30 Fexofenadine HCL 12/03 Hx Tablets 180mg 30tab 1 po qd 477.8 Julio N. zeferino akbar M.D. 12/28 Zyrtec 11/03 Hx Tablets 10mg 30tab 1 PO qd Julio N. zeferino akbar M.D. 12/28 Fluticasone 04/02 Hx Suspension 50mcg/Act 1mont 2 sprays 471.8 Cezar h each Eddie Guerra - nostril 05/04 daily /2007 Prednisone 01/31 Hx Tablets 10mg 40tab 4 Tabs PO 471.8 s Every Day Eddie Guerra - X4 D, Then 03/03 3 Tabs PO /2006 Every Day X 4D, Then 2 Tab PO Daily X4D, Then 1 Tab PO Daily X4D Nasacort Aq 04/24 Hx Suspension 55mcg/Act 1unit 2 Sprays 471.8 Cezar Intranasal [place] /2005 uation s Each Eddie Guerra, - Nostril qd 05/04 Levaquin 04/24 Hx Tablets 500mg 10tab 1 Tablet 471.8 Cezar s By Mouth Eddie Guerra, - Daily 03/03 Until Finished Nexium 10/24 Hx Unknown /2005 - 05/04 Singulair 07/11 Hx Tablets 10mg 30tab 1 PO qd 471.8 Cezar s Pipe Fernando MD 11/03 Nasacort Aq 09/13 Hx Suspension 55McG/Act 1unit 2 sprays 473.2 Cezar Intranasal [place] /2004 uation s each Eddie Guerra - nostril qd 12/02 Lisinopril 00 Hx Unknown /0000 - 12/02 Pepcid ac Ez Hx Unknown Chews Maximum /0000 Strength - 12/02 Immunizations CPT Code Status Date Vaccine Lot # [id number] Ordered 02/17/2015 Influenza Virus Vaccine, 3 Years Of Age And Above, Intramuscular 07147 Given Unknown Influenza Virus Vaccine, 3 Years Of Age And Above, Intramuscular Vital Signs Date Vital Result Comment 08/13/2017 Weight 335.00 lb Weight in kg's 151.956 Height 68.50 inches 5'8.50" Height in cm's 174.0 cm BMI (Body Mass Index) 50.2 kg/m2 06/06/2017 BP Systolic 159 mmHg BP Diastolic [...] <0.06 ng/ml NOT SUPPORTIVE OF DIAGNOSIS OF [place] 0.06 - 0.50 ng/ml INDETERMINATE: SUGGEST SERIAL STUDIES IF CLINICALLY INDICATED. > 0.5 ng/ml CONSISTENT WITH DIAGNOSIS OF [place] . 9 Anion gap measurement may be of limited value in the presence of any alkalosis, especially in a combined acid base disorder. . 10 Note change in reference range as of 01/08/08. The change was based on recommendations from the [place] [employer]. 11 Please note change in reference range effective 07 . 12 FEW COLONIES OF NORMAL RESPIRATORY MARY BETH Procedures Date CPT Code Description Status 08/13/2017 10090 Nasal Endoscopy, Diagnostic Completed 03/21/2016 97435 Nasal Endoscopy, Diagnostic Completed 05/11/2015 57030 Revision Mastoidectomy Resulting In Modified Radical Completed Mastoidctomy 01/28/2014 88266 Fiberoptic Laryngoscopy Completed 09/29/2013 47461 Tympanometry Completed 09/29/2013 87596 Comprehensive Audiogram Completed 03/12/2013 37097 Tympanometry Completed 03/12/2013 67268 Comprehensive Audiogram Completed 01/21/2013 61688 Binocular Microscopy Completed 12/09/2012 30447 Tympanomastoidectomy W/Ossicular Chain Completed 09/25/2012 80211 Medical Records Completed 08/28/2012 88722 Tympanometry Completed 08/28/2012 16003 Comprehensive Audiogram Completed 06/05/2012 27812 Tympanometry Completed 06/05/2012 65712 Comprehensive Audiogram Completed 03/04/2012 40480 Binocular Microscopy Completed 11/19/2011 89039 Nasal Endoscopy, Diagnostic Completed 07/06/2011 74862 Tympanometry Completed 07/06/2011 45268 Comprehensive Audiogram Completed 07/03/2011 82506 Tympanometry Completed 07/03/2011 02511 Binocular Microscopy Completed 11/03/2010 22813 Fiberoptic Laryngoscopy Completed 09/19/2010 09317 Tympanometry Completed 05/24/2010 12631 Tympanometry Completed 05/24/2010 38042 Comprehensive Audiogram Completed 11/09/2009 55829 Tympanometry Completed 04/07/2009 61778 Tympanometry Completed 03/30/2009 70019 Binocular Microscopy Completed 03/10/2009 58807 Tympanometry Completed 03/10/2009 74167 Comprehensive Audiogram Completed 04/26/2008 96170 Nasal Endoscopy, Diagnostic Completed 01/15/2008 62274 Fiberoptic Laryngoscopy Completed 01/05/2008 35283 No Show Fee Completed 11/04/2007 68869 Demonstration/Eval. Of Patient Utilization Of Completed Spacer/Nebulizer 11/04/2007 74378 Respiratory Flow Volume Loop Completed 11/04/2007 54755 Bronchospasm Evaluation Completed 07/24/2007 79003 Prick Test Completed 07/24/2007 56510 Prick Test Completed 07/11/2007 72329 Nasal Endoscopy, Diagnostic Completed 04/02/2007 41609 Nasopharyngoscopy Completed 01/31/2007 25851 Tympanometry Completed 01/31/2007 92121 Tympanometry Completed 01/31/2007 02775 Comprehensive Audiogram Completed 01/31/2007 17779 Comprehensive Audiogram Completed 01/31/2007 24875 Nasal Endoscopy, Diagnostic Completed 12/24/2006 57945 Tympanostomy W/Tube Local Or Topical Anes. Completed 12/02/2006 17374 Tympanometry Completed 12/02/2006 88815 Tympanometry Completed 12/02/2006 97758 Comprehensive Audiogram Completed 12/02/2006 91405 Comprehensive Audiogram Completed 10/26/2005 99885 Nasal Endoscopy, Diagnostic Completed 04/06/2005 50424 Nasal Endoscopy, Diagnostic Completed 09/13/2004 31032 Nasal Endoscopy W/ Debridement Completed 05/24/2004 80991 Nasal Endoscopy W/ Debridement Completed 05/02/2004 52177 Nasal Endoscopy W/Maxllary Antrostomy W/Excision Of Completed Poylp 05/02/2004 79981 Nasal Endoscopy With Ethmoidectomy, Partial Completed 04/28/2004 56053 Nasal Endoscopy, Diagnostic Completed 03/27/2004 68187 Nasal Endoscopy, Diagnostic Completed 03/01/2004 03403 Nasal Endoscopy, Diagnostic Completed 07/01/2003 34297 No Show Fee Completed Encounters Type Date Location Provider CPT E/M Dx Office Visit 10/04/2017 10:00a [place],After 05/20/07 Cezar Guerra 54206 H71.12 Office Visit 06/06/2017 11:15a [place],After 05/20/07 Cezar Guerra 57541 H71.12 Office Visit 02/15/2017 11:00a [place],After 05/20/07 Cezar Guerra 84181 H71.12 H72.2x1 Office Visit 08/28/2016 10:30a [place],After 05/20/07 [place] [address] H71.12 Office Visit 04/26/2016 2:45p [place],After 05/20/07 [place] [address] J31.0 H71.12 Office Visit 12/30/2015 11:00a [place],After 05/20/07 [place] [address] H71.12 H60.11 Office Visit 09/29/2015 11:00a [place],After 05/20/07 [place] [address] H71.12 Office Visit 05/25/2015 3:45p [place],After 05/20/07 [place] [address] L23.3 Office Visit 03/24/2015 11:30a [place],After 05/20/07 [place] [address] H71.12 Office Visit 03/17/2015 10:30a [place],After 05/20/07 [place] [address] H71.12 Office Visit 03/03/2015 11:00a [place],After 05/20/07 [place] [address] H65.32 H71.12 Office Visit 12/31/2014 10:15a [place],After 05/20/07 [place] [address] 381.29 385.32 Office Visit 10/28/2014 3:45p [place],After 05/20/07 [place] [address] 381.29 385.32 Office Visit 04/01/2014 9:45a [place],After 05/20/07 [place] [address] 381.29 Office Visit 01/28/2014 10:45a [place],After 05/20/07 [place] [address] 381.29 787.20 Office Visit 11/04/2013 10:15a [place],After 05/20/07 [place] [address] 786.2 787.20 493.00 Office Visit 09/29/2013 10:00a [place],After 05/20/07 [place] [address] 389.03 389.10 462-2 Office Visit 09/17/2013 10:30a [place],After 05/20/07 [place] [address] 380.10 389.03 Office Visit 09/11/2013 10:30a [place],After 05/20/07 [place] [address] 380.10 381.29 Office Visit 07/23/2013 9:45a [place],After 05/20/07 [place] [address] 385.32 Office Visit 04/09/2013 11:00a [place],After 05/20/07 [place] [address] 472.0 385.32 Office Visit 03/12/2013 10:30a [place],After 05/20/07 [place] [address] 385.32 389.03 389.10 477.8 Office Visit 01/21/2013 4:00p [place],After 05/20/07 Mikala Cordova ELECTRICAL ENGINEER MEP 15139 385.32 381.29 Office Visit 12/03/2012 1:45p [place],After 05/20/07 [place] [address] 385.32 381.29 389.03 Office Visit 08/28/2012 2:15p [place],After 05/20/07 Mikala Cordova ELECTRICAL ENGINEER MEP 38036 385.32 381.29 Office Visit 06/05/2012 1:30p [place],After 05/20/07 [place] [address] 385.32 381.29 389.03 389.10 Office Visit 05/21/2012 11:30a [place],After 05/20/07 [place] [address] 385.32 Office Visit 05/07/2012 11:15a [place],After 05/20/07 [place] [address] 381.29 Office Visit 03/13/2012 3:15p [place],After 05/20/07 [place] [address] 381.29 Office Visit 03/04/2012 9:30a [place],After 05/20/07 Mikala Cordova ELECTRICAL ENGINEER MEP 31643 381.3 Office Visit 11/19/2011 2:45p [place],After 05/20/07 Mikala Cordova ELECTRICAL ENGINEER MEP 45153 350.2 472.0 Office Visit 09/18/2011 3:30p [place],After 05/20/07 Mikala Cordova ELECTRICAL ENGINEER MEP 34643 477.8 493.01 Office Visit 09/05/2011 11:15a [place],After 05/20/07 [place] [address] 389.03 389.10 384.82 Office Visit 07/03/2011 4:00p [place],After 05/20/07 Mikala Cordova ELECTRICAL ENGINEER MEP 26784 384.82 Office Visit 02/22/2011 1:45p [place],After 05/20/07 [place] [address] 462 384.20 381.81 389.03 389.10 Office Visit 11/03/2010 9:30a [place],After 05/20/07 Mikala Cordova ELECTRICAL ENGINEER MEP 17368 478.19 530.81 493.00 530.11 Office Visit 10/10/2010 2:00p [place],After 05/20/07 Mikala Cordova ELECTRICAL ENGINEER MEP 19679 384.20 477.8 493.00 Office Visit 09/19/2010 1:30p [place],After 05/20/07 Mikala Cordova ELECTRICAL ENGINEER MEP 28767 384.20 381.81 Office Visit 05/24/2010 2:00p [place],After 05/20/07 [place] [address] 389.03 389.10 381.81 384.20 Office Visit 11/09/2009 11:30a [place],After 05/20/07 Mikala Cordova ELECTRICAL ENGINEER MEP 25675 384.20 381.81 350.2 Office Visit 10/19/2009 1:30p [place],After 05/20/07 [place] [address] 477.8 384.20 381.81 Office Visit 09/30/2009 10:00a [place],After 05/20/07 [place] [address] 477.8 493.00 384.20 389.03 Office Visit 04/07/2009 3:45p [place],After 05/20/07 [place] [address] 384.20 388.71 381.81 Office Visit 03/30/2009 2:30p [place],After 05/20/07 [place] [address] 384.20 388.71 Office Visit 03/10/2009 1:45p [place],After 05/20/07 [place] [address] 388.31 478.1-4 Office Visit 12/28/2008 4:00p [place],After 05/20/07 [place] [address] 478.19 478.1-4 477.8 493.00 Office Visit 07/28/2008 3:15p [place],After 05/20/07 [place] [address] 350.2 473.0 473.2 471.8 Office Visit 05/04/2008 2:45p [place],After 05/20/07 Julio Arreola, 60932 493.01 M.D. 530.81 780.57 278.01 429.3 Office Visit 04/28/2008 1:48p [place],After 05/20/07 Julio Arreola, 63644 493.00 M.D. Office Visit 04/26/2008 9:30a [place],After 05/20/07 [place] [address] 473.0 530.81 Office Visit 03/11/2008 4:00p [place],After 05/20/07 [place] [address] 780.57 381.81 389.03 Office Visit 02/16/2008 10:15a [place],After 05/20/07 [place] [address] 780.57 530.11 Office Visit 12/04/2007 3:30p [place],After 05/20/07 [place] [address] 530.81 477.8 493.90 Office Visit 11/04/2007 10:15a [place],After 05/20/07 [place] [address] 478.19 478.1-4 477.8 Office Visit 10/23/2007 3:00p [place],After 05/20/07 [place] [address] 478.1-4 381.3 493.00 477.0 477.8 Office Visit 07/31/2007 10:00a [place],After 05/20/07 [place] [address] 477.8 477.0 Office Visit 07/11/2007 3:30p [place],After 05/20/07 [place] [address] 477.8 478.19 478.1-4 Office Visit 05/15/2007 9:00a [place],After 05/20/07 [place] [address] 477.8 Office Visit 04/02/2007 2:15p [place],After 05/20/07 [place] [address] 477.8 471.8 389.2 381.81 474.12 Office Visit 03/03/2007 2:45p [place],After 05/20/07 [place] [address] 473.0 474.12 381.81 Office Visit 01/31/2007 3:15p [place],After 05/20/07 [place] [address] 381.81 389.2 471.8 474.12 Office Visit 12/02/2006 2:30p [place],After 05/20/07 [place] [address] 381.81 389.2 Office Visit 04/24/2006 9:45a [place],After 05/20/07 [place] [address] 471.8 473.0 461.0 Office Visit 07/11/2005 1:30p [place],After 05/20/07 [place] [address] 471.8 780.57 493.0 Office Visit 04/06/2005 1:30p [place],After 05/20/07 [place] [address] 473.2 471.8 389.03 Office Visit 05/09/2004 9:30a [place],After 05/20/07 Julio Arreola 96651 473.2 M.D. 471.8 Office Visit 02/04/2004 9:45a [place],After 05/20/07 Dank Pat, 37525 780.57 M.D. Office Visit 05/28/2003 11:15a [place],After 05/20/07 Dank Pat, 89126 478.1 M.D. Plan of Care Future Appointment(s):01/07/2018 10:30 am - Cezar Guerra MD at [place], After 05/20/804 - Cezar Guerra 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
[2017-10-20 14:18] LABS: ABS Basophils 0.1 10^3/ul (0-0.2); ABS Eosinophils 0.1 10^3/ul (0-0.6); ABS Lymphocytes 1.3 10^3/ul (1.0-4.8); ABS Monocytes 0.5 10^3/ul (0-0.8); ABS Neutrophils 2.5 10^3/ul (1.5-7.7); ABS Nucleated RBC 0 10^3/ul; Eosinophil % 2.4 % (0-6); Hematocrit 42 % (42-52); Hemoglobin 14.2 g/dl (14.0-18.0); Lymphocyte % 28.7 % (25-47); Mean Corpuscular HGB Conc 34 g/dl (31-36); Mean Corpuscular Hemoglobin 29 pg (27-31); Mean Corpuscular Volume 85 fL (80-94); Mean Platelet Volume 7.5 um3 (7.4-10.4); Nucleated Red Blood Cells % 0.1; Platelet Count 195 10^3/ul (150-450); Red Blood Count 4.95 10^6/ul (4.0-5.4); Red Cell Distribution Width 14 % (10.5-15); White Blood Count 4.4 10^3/ul (3.5-10.8)
[2017-10-20 14:26] LABS: INR 0.99 (0.77-1.02)
[2017-10-20 14:37] LABS: EGFR Non-African American 60.2 (>60)
--- NOTE | 2017-10-20 14:40 | RAD ---
Indication: Dizziness. Comparison: June 06, 2017 and July 22, 2017 CT exam. Technique: Noncontrast CT vertex of skull through foramen magnum. Report: The sulci, ventricles, and basal cisterns are normal for age. Hartman matter white matter differentiation is preserved without evidence for edema. No intra or extra axial hemorrhage, mass, or fluid collection detected. Unremarkable visualized orbital contents. Unremarkable calvarium and skull base. Unremarkable scalp. Fluid level at the RIGHT maxillary sinus. Small volume of retained secretions/mucous retention cyst or polyps at the partially visualized LEFT maxillary and LEFT ethmoid and sphenoid sinuses. Clear hypoplastic mastoid air spaces. IMPRESSION: 1. No acute intracranial abnormality. Negative unenhanced CT of the brain. 2. Paranasal sinus disease. Fluid level at the partially visualized RIGHT maxillary sinus which may reflect acute sinusitis. Interval resolution of previous fluid level at the LEFT maxillary sinus.
[2017-10-20] MEDS ORDERED: NS 0.9% 1000 ML* 1,000 ML IV ONE (14:51)
[2017-10-20 15:17] LABS: Urine Appearance Clear; Urine Blood 2+ (Negative); Urine Color Yellow; Urine Ketones Negative (Negative); Urine Protein Negative (Negative); Urine Specific Gravity 1.018 (1.010-1.030); Urine Urobilinogen Negative (Negative)
[2017-10-20 17:15] VITALS: BP 130/87
--- NOTE | 2017-10-20 19:52 | ED ---
Chi Kim Natalie, scribed for Zhao Cadet MD on 10/20/17 at 1354 . Dizziness - HPI Summary HPI Summary: The patient is a 52 y/o M presenting to the ED c/o dizziness, lightheadedness, and blurred vision starting this morning and worsening until arrival. He was not having these symptoms yesterday, and he woke up this morning and felt alright, but his symptoms started as he was getting ready for [employer]. While at [employer], his symptoms worsened. He denies nausea and vomiting. He also states that he felt like he hasn't eaten anything, but he ate breakfast and doesn't feel hungry. This is a similar episode to one he had in May 2017, where he was admitted to [facility] [place], and it was found that he had a seizure. During this time, his glucose levels were high, but he has not been diagnosed with diabetes. The patient did not check his blood sugar [employer] EXEC[employer]. He additionally c/o edema in his bilateral lower extremities that has caused tenderness, which started when he "started having leg problems." - History Of Current Complaint Chief Complaint: EDGeneral Stated Complaint: DIZZINESS Time Seen by Provider: 10/20/17 12:49 Hx Obtained From: Patient Onset/Duration: Still Present, Suddenly Timing: Hours Severity Initially: Mild Severity Currently: Moderate Character: Lightheaded, Dizzy Aggravating Factor(s): Nothing Alleviating Factor(s): Nothing Associated Signs And Symptoms: Positive: Visual Changes - blurred vision. Negative: Nausea, Vomiting - Allergies/Home Medications Allergies/Adverse Reactions: Allergies Allergy/AdvReac Type Severity Reaction Status Date / Time amoxicillin [From Augmentin] Allergy Swelling Verified 10/20/17 12:03 clavulanic acid Allergy Swelling Verified 10/20/17 12:03 [From Augmentin] Penicillins Allergy Anaphylatic Verified 10/20/17 12:03 Shock VINEGAR Allergy Intermediate Hives Uncoded 10/20/17 12:03 MUSHROOMS Allergy Unknown Rash Uncoded 10/20/17 12:03 Home Medications: Home Medications Famotidine TAB* [Pepcid 20 MG TAB*] 20 mg PO BID 10/20/17 [History Confirmed 08/04] PMH/Surg Hx/FS Hx/Imm Hx Endocrine/Hematology History: Reports: Hx Anticoagulant Therapy - plavix Denies: Hx Diabetes, Hx Sickle Cell Disease, Hx Thyroid Disease Cardiovascular History: Reports: Hx Angina, Hx Cardiac Arrest, Hx Coronary Artery Disease, Hx Hypercholesterolemia, Hx Hypertension, Hx Myocardial Infarction, Other Cardiovascular Problems/Disorders - HEART DISEASE, CARDIAC EVENT MONITOR IMPLANTED Denies: Hx Congestive Heart Failure, Hx Pacemaker/ICD, Hx Valvular Heart Disease Respiratory History: Reports: Hx Asthma, Hx Sleep Apnea Denies: Hx Chronic Obstructive Pulmonary Disease (COPD) GI History: Reports: Hx Gastroesophageal Reflux Disease Denies: Hx Ulcer History: Reports: Hx Renal Disease - cysts, Other Problems/Disorders - bilat cyst on kidneys Musculoskeletal History: Reports: Hx Arthritis, Hx Back Problems, Other Musculoskeletal History - RANDEE Denies: Hx Scoliosis Sensory History: Reports: Hx Cataracts - right eye, Hx Contacts or Glasses Opthamlomology History: Reports: Hx Cataracts - right eye, Hx Contacts or Glasses Neurological History: Reports: Hx Seizures, Hx Transient Ischemic Attacks (TIA) Denies: Hx Dementia, Hx Headaches, Other Neuro Impairments/Disorders Psychiatric History: Reports: Hx Depression Denies: Hx Panic Disorder - Cancer History Hx Chemotherapy: No - Surgical History Surgery Procedure, Year, and Place: APR 2004 sinus [facility] [place] ;. 2007 left knee arthroscopy [facility] [place] ;. 2012 left tympanoplasty WITH STAPES IMPLANT ([facility] MALLEOUS HEAD SERIAL # [id number] - PER [facility] INFORMATION SENT TO MRI ON ; IMPLANT IS STAINLESS STEEL STATES SOME DEGREE OF MAGNETISM TESTED MRI SAFE AT 1.5T ONLY - DR ANAYA APPROVED THIS INFORMATION FOR 1.5T ONLY). [facility] [place] ;. 2014 LEFT REVISION TYMPANOPLASTY/ MASTOIDECTOMY [facility] [place] ;. 2011 HEART CATH - NO STENTS ;. 2010 HEART CATH WITH cardiac stents x 4 (PROMUS DRUG-ELUTING STENT OKAY IN NORMAL MODE ONLY, MAX 720 GAUSS/CM @ 1.5T) [facility] [place] ;. REVEAL LINQ EVENT MONITOR PLACED- 12/15/15- ED CAME OVER [employer]/ [facility] MACHINE & DID A DOWNLOAD SO THAT NOTHING WOULD BE ERASED Hx Anesthesia Reactions: Yes - SEIZURE LIKE ACTIVITY; REINTUBATION AFTER LEFT EAR 2012 - Immunization History Date of Tetanus Vaccine: UTD Date of Influenza Vaccine: 03/05 Infectious Disease History: No Infectious Disease History: Denies: Hx Clostridium Difficile, Hx Hepatitis, Hx Human Immunodeficiency Virus (HIV), Hx of Known/Suspected MRSA, Hx Shingles, Hx Tuberculosis, Hx Known/ Suspected VRE, Hx Known/Suspected VRSA, History Other Infectious Disease, Traveled Outside the [place] in Last 30 Days - Family History Known Family History: Positive: Cardiac Disease, Hypertension, Diabetes - Social History Alcohol Use: Occasionally Hx Substance Use: No Substance Use Type: Reports: None Hx Tobacco Use: Yes Smoking Status (MU): Former Smoker Type: Cigarettes Length of Time of Smoking/Using Tobacco: 10-12 YRS Have You Smoked in the Last Year: No Review of Systems Positive: Other - dizzy, lightheaded Positive: Blurred Vision All Other Systems Reviewed And Are Negative: Yes Physical Exam - Summary Physical Exam Summary: Appearance: The patient is morbidly obses in no acute distress and in no acute pain. Skin: The skin is warm and dry and skin color reflects adequate perfusion. HEENT: The head is normocephalic and atraumatic. The pupils are equal and reactive. The conjunctivae are clear and without drainage. No nystagmus. Nares are patent and without drainage. Mouth reveals moist mucous membranes and the throat is without erythema and exudate. The external ears are intact. The ear canals are patent and without drainage. The tympanic membranes are intact. Neck: The neck is supple with full range of motion and non-tender. There are no carotid bruits. There is no neck vein distension. Respiratory: Chest is non-tender. Lungs are clear to auscultation and breath sounds are symmetrical and equal. Cardiovascular: Heart is regular rate and rhythm. There is no murmur or rub auscultated. There is very slight pitting edema and pulses are symmetrical and equal. Abdomen: The abdomen is soft and non-tender. There are normal bowel sounds heard in all four quadrants and there is no organomegaly palpated. Musculoskeletal: There is no back tenderness noted. Extremities are non-tender with full range of motion. There is good capillary refill. There is very slight pitting edema and mild calf tenderness elicited. Neurological: Patient is alert and oriented to person, place and time. The patient has symmetrical motor strength in all four extremities. Cranial nerves are grossly intact. Deep tendon reflexes are symmetrical and equal in all four extremities. Psychiatric: The patient has an appropriate affect and does not exhibit any anxiety or depression. Triage Information Reviewed: Yes Vital Signs On Initial Exam: Initial Vitals Temp Pulse Resp BP Pulse Ox 97.4 F 62 22 146/86 97 10/20/17 11:59 10/20/17 11:59 10/20/17 11:59 10/20/17 11:59 10/20/17 11:59 Vital Signs Reviewed: Yes Diagnostics - Vital Signs Vital Signs Temp Pulse Resp BP Pulse Ox 10/20/17 12:35 64 15 148/92 98 10/20/17 11:59 97.4 F 62 22 146/86 97 - Laboratory Lab Results: Lab Results 10/20/17 10/20/17 10/20/17 Range/Units 14:08 14:08 14:08 WBC 4.4 (3.5-10.8) 10^3/ul RBC 4.95 (4.0-5.4) 10^6/ul Hgb 14.2 (14.0-18.0) g/dl Hct 42 (42-52) % MCV 85 (80-94) fL MCH 29 (27-31) pg MCHC 34 (31-36) g/dl RDW 14 (10.5-15) % Plt Count 195 (150-450) 10^3/ul MPV 7.5 (7.4-10.4) um3 Neut % (Auto) 56.5 (38-83) % Lymph % (Auto) 28.7 (25-47) % Gilmer % (Auto) 11.1 H (0-7) % Eos % (Auto) 2.4 (0-6) % Baso % (Auto) 1.3 (0-2) % Absolute Neuts (auto) 2.5 (1.5-7.7) 10^3/ul Absolute Lymphs (auto) 1.3 (1.0-4.8) 10^3/ul Absolute Monos (auto) 0.5 (0-0.8) 10^3/ul Absolute Eos (auto) 0.1 (0-0.6) 10^3/ul Absolute Basos (auto) 0.1 (0-0.2) 10^3/ul Absolute Nucleated RBC 0 10^3/ul Nucleated RBC % 0.1 INR (Anticoag Therapy) 0.99 (0.77-1.02) Sodium 137 L (139-145) mmol/L Potassium 3.9 (3.5-5.0) mmol/L Chloride 103 (101-111) mmol/L Carbon Dioxide 28 (22-32) mmol/L Anion Gap 6 (2-11) mmol/L BUN 13 (6-24) mg/dL Creatinine 1.25 H (0.67-1.17) mg/dL Est GFR ( Amer) 77.4 (>60) Est GFR (Non-Af Amer) 60.2 (>60) BUN/Creatinine Ratio 10.4 (8-20) Glucose 89 (70-100) mg/dL Lactic Acid (0.5-2.0) mmol/L Calcium 9.3 (8.6-10.3) mg/dL Magnesium 1.9 (1.9-2.7) mg/dL Total Bilirubin 0.70 (0.2-1.0) mg/dL AST 16 (13-39) U/L ALT 23 (7-52) U/L Alkaline Phosphatase 86 (34-104) U/L Troponin I 0.01 (<0.04) ng/mL C-Reactive Protein 8.84 H (< 5.00) mg/L B-Natriuretic Peptide ( - 100) pg/mL Total Protein 6.6 (6.4-8.9) g/dL Albumin 3.9 (3.2-5.2) g/dL Globulin 2.7 (2-4) g/dL Albumin/Globulin Ratio 1.4 (1-3) TSH 1.78 (0.34-5.60) mcIU/mL Urine Color Urine Appearance Urine pH (5-9) Ur Specific [place] (1.010-1.030) Urine Protein (Negative) Urine Ketones (Negative) Urine Blood (Negative) Urine Nitrate (Negative) Urine Bilirubin (Negative) Urine Urobilinogen (Negative) Ur Leukocyte Esterase (Negative) Urine WBC (Auto) (Absent) Urine RBC (Auto) (Absent) Urine Bacteria (Absent) Urine Glucose (Negative) 10/20/17 10/20/17 10/20/17 Range/Units 14:08 14:08 15:02 WBC (3.5-10.8) 10^3/ul RBC (4.0-5.4) 10^6/ul Hgb (14.0-18.0) g/dl Hct (42-52) % MCV (80-94) fL MCH (27-31) pg MCHC (31-36) g/dl RDW (10.5-15) % Plt Count (150-450) 10^3/ul MPV (7.4-10.4) um3 Neut % (Auto) (38-83) % Lymph % (Auto) (25-47) % Gilmer % (Auto) (0-7) % Eos % (Auto) (0-6) % Baso % (Auto) (0-2) % Absolute Neuts (auto) (1.5-7.7) 10^3/ul Absolute Lymphs (auto) (1.0-4.8) 10^3/ul Absolute Monos (auto) (0-0.8) 10^3/ul Absolute Eos (auto) (0-0.6) 10^3/ul Absolute Basos (auto) (0-0.2) 10^3/ul Absolute Nucleated RBC 10^3/ul Nucleated RBC % INR (Anticoag Therapy) (0.77-1.02) Sodium (139-145) mmol/L Potassium (3.5-5.0) mmol/L Chloride (101-111) mmol/L Carbon Dioxide (22-32) mmol/L Anion Gap (2-11) mmol/L BUN (6-24) mg/dL Creatinine (0.67-1.17) mg/dL Est GFR ( Amer) (>60) Est GFR (Non-Af Amer) (>60) BUN/Creatinine Ratio (8-20) Glucose (70-100) mg/dL Lactic Acid 1.0 (0.5-2.0) mmol/L Calcium (8.6-10.3) mg/dL Magnesium (1.9-2.7) mg/dL Total Bilirubin (0.2-1.0) mg/dL AST (13-39) U/L ALT (7-52) U/L Alkaline Phosphatase (34-104) U/L Troponin I (<0.04) ng/mL C-Reactive Protein (< 5.00) mg/L B-Natriuretic Peptide 34 ( - 100) pg/mL Total Protein (6.4-8.9) g/dL Albumin (3.2-5.2) g/dL Globulin (2-4) g/dL Albumin/Globulin Ratio (1-3) TSH (0.34-5.60) mcIU/mL Urine Color Yellow Urine Appearance Clear Urine pH 5.0 (5-9) Ur Specific [place] 1.018 (1.010-1.030) Urine Protein Negative (Negative) Urine Ketones Negative (Negative) Urine Blood 2+ A (Negative) Urine Nitrate Negative (Negative) Urine Bilirubin Negative (Negative) Urine Urobilinogen Negative (Negative) Ur Leukocyte Esterase Negative (Negative) Urine WBC (Auto) Absent (Absent) Urine RBC (Auto) 2+(6-10/hpf) A (Absent) Urine Bacteria Absent (Absent) Urine Glucose Negative (Negative) Result Diagrams: 10/20/17 14:08 10/20/17 14:08 Lab Statement: Any lab studies that have been ordered have been reviewed, and results considered in the medical decision making process. - CT Brain CT CT Interpretation: Positive (See Comments) - 1. No acute intracranial abnormality. Negative unenhanced CT of the brain. 2. Paranasal sinus disease. Fluid level at the partially visualized RIGHT maxillary sinus which may reflect acute sinusitis. Interval resolution of previous fluid level at the LEFT maxillary sinus. ED physician has reviewed this report. CT Interpretation Completed By: Radiologist - EKG 14:27 Cardiac Rate: Bradycardia EKG Rhythm: Sinus Bradycardia - 58 BPM EKG Interpretation: Prolonged PA interval. Re-Evaluation - Re-Evaluation First Eval Re-Evaluation Time: 17:00 Change: Unchanged Comment: I spoke with the patient about his imaging results. The patient will walk around to see if he's feeling better. Second Eval Re-Evaluation Time: 17:30 Change: Improved Comment: The patient is able to walk around. He will be discharged home. Dizzy Course/Dx - Course Course Of Treatment: Mr. Glaser presented with multiple vague complaints including blurred vision, not feeling right and dizziness. His workup was unremarkable and he was able to ambulate around the department without any difficulty. I recommended close follow-up with his PMD. - Diagnoses Provider Diagnoses: Weakness Discharge - Sign-Out/Discharge Documenting (check all that apply): Discharge/Admit/Transfer - Discharge Plan Condition: Stable Disposition: HOME Patient Education Materials: Weakness (ED) Referrals: Carlin Chu MD [Primary Care Provider] - 3 Days Additional Instructions: Follow up with your primary care provider in 2-3 days. Return to the emergency department for any new or worsening symptoms. - Billing Disposition and Condition Condition: STABLE Disposition: HOME The documentation as recorded by the Chi brown Natalie accurately reflects the service I personally performed and the decisions made by me, Zhao Cadet MD.
== END 2017-10-20 17:40 | disposition home or self-care (01) ==
LOC: ED 11:48
DX: R53.1 Weakness (principal); R42 Dizziness and giddiness; H53.8 Other visual disturbances; J32.9 Chronic sinusitis, unspecified; Z87.891 Personal history of nicotine dependence; Z88.3 Allergy status to other anti-infective agents; Z88.0 Allergy status to penicillin
CPT/HCPCS: 36415; 70450; 80053; 81003; 81015; 83605; 83735; 83880; 84443; 84484; 85025; 85610; 86140; 93005; 99283

== ENCOUNTER 2017-11-25 12:35 | Emergency (ER) | payer MEDICARE, MEDICAID ==
[2017-11-25 13:10] LABS: ABS Basophils 0 10^3/ul (0-0.2); ABS Eosinophils 0.1 10^3/ul (0-0.6); ABS Lymphocytes 1.4 10^3/ul (1.0-4.8); ABS Monocytes 0.6 10^3/ul (0-0.8); ABS Neutrophils 3.8 10^3/ul (1.5-7.7); ABS Nucleated RBC 0 10^3/ul; Eosinophil % 2.5 % (0-6); Hematocrit 43 % (42-52); Hemoglobin 14.1 g/dl (14.0-18.0); Lymphocyte % 23.5 % (25-47); Mean Corpuscular HGB Conc 33 g/dl (31-36); Mean Corpuscular Hemoglobin 28 pg (27-31); Mean Corpuscular Volume 85 fL (80-94); Mean Platelet Volume 7.7 um3 (7.4-10.4); Nucleated Red Blood Cells % 0.2; Platelet Count 213 10^3/ul (150-450); Red Blood Count 5.03 10^6/ul (4.00-5.40); Red Cell Distribution Width 15 % (10.5-15); White Blood Count 5.9 10^3/ul (3.5-10.8)
[2017-11-25 13:15] LABS: INR 0.93 (0.77-1.02)
[2017-11-25 13:30] LABS: EGFR Non-African American 71.3 (>60)
--- NOTE | 2017-11-25 13:56 | RAD ---
HISTORY: chest pain COMPARISONS: July 03, 2017 VIEWS: 1: frontal portable view of the chest at 1:55 PM FINDINGS: LINES AND TUBES: None. CARDIOMEDIASTINAL SILHOUETTE: The cardiomediastinal silhouette is normal for portable technique. PLEURA: The costophrenic angles are sharp. No pleural abnormalities are noted. LUNG PARENCHYMA: The lungs are clear. ABDOMEN: The upper abdomen is clear. There is no subphrenic gas. BONES AND SOFT TISSUES: No bone or soft tissue abnormalities are noted. IMPRESSION: NO ACTIVE CARDIOPULMONARY DISEASE.
[2017-11-25 16:34] VITALS: BP 128/89
--- NOTE | 2017-11-25 17:58 | ED ---
Nicholas Kim Angela, scribed for Zhao Cadet MD on 11/25/17 at 1308 . HPI Chest Pain - HPI Summary HPI Summary: This pt is a 52 y/o male presenting to [facility] c/o chset pain since this morning. Pt reports he woke up this morning with chest pain. He describes chest pain as "someone is standing on it." His pain is unchanged with movement or position change. Chest pain is aggravated with ambulation. Additionally notes arm and leg pain, headache. Headache is described as throbbing on the left side of his head. Denies neck pain. Pt is unsure if his symptoms are secondary to the heat. He states he just bought an AC a couple of days ago for his apartment. - History of Current Complaint Chief Complaint: EDChestPainROMI Time Seen by Provider: 11/25/17 12:46 Hx Obtained From: Patient Onset/Duration: Started Hours Ago, Still Present Timing: Lasting Hours Current Severity: Severe Pain Intensity: 10 Pain Scale Used: 0-10 Numeric Chest Pain Location: Diffuse Chest Pain Radiates: No Character: Heaviness Aggravating Factor(s): Other: - ambulation Alleviating Factor(s): Nothing Associated Signs and Symptoms: Positive: Chest Pain, Headaches - left side, Other: - arm and leg pain. Negative: Fever - Additional Pertinent History Primary Care Physician: ZURI - Allergy/Home Medications Allergies/Adverse Reactions: Allergies Allergy/AdvReac Type Severity Reaction Status Date / Time amoxicillin [From Augmentin] Allergy Swelling Verified 11/25/17 12:52 clavulanic acid Allergy Swelling Verified 11/25/17 12:52 [From Augmentin] Penicillins Allergy Anaphylatic Verified 11/25/17 12:52 Shock VINEGAR Allergy Intermediate Hives Uncoded 11/25/17 12:52 MUSHROOMS Allergy Unknown Rash Uncoded 11/25/17 12:52 PMH/Surg Hx/FS Hx/Imm Hx Endocrine/Hematology History: Reports: Hx Anticoagulant Therapy - plavix Denies: Hx Diabetes, Hx Sickle Cell Disease, Hx Thyroid Disease Cardiovascular History: Reports: Hx Angina, Hx Cardiac Arrest, Hx Coronary Artery Disease, Hx Hypercholesterolemia, Hx Hypertension, Hx Myocardial Infarction, Other Cardiovascular Problems/Disorders - HEART DISEASE, CARDIAC EVENT MONITOR IMPLANTED Denies: Hx Congestive Heart Failure, Hx Pacemaker/ICD, Hx Valvular Heart Disease Respiratory History: Reports: Hx Asthma, Hx Sleep Apnea Denies: Hx Chronic Obstructive Pulmonary Disease (COPD) GI History: Reports: Hx Gastroesophageal Reflux Disease Denies: Hx Ulcer History: Reports: Hx Renal Disease - cysts, Other Problems/Disorders - bilat cyst on kidneys Musculoskeletal History: Reports: Hx Arthritis, Hx Back Problems, Other Musculoskeletal History - RANDEE Denies: Hx Scoliosis Sensory History: Reports: Hx Cataracts - right eye, Hx Contacts or Glasses Opthamlomology History: Reports: Hx Cataracts - right eye, Hx Contacts or Glasses Neurological History: Reports: Hx Seizures, Hx Transient Ischemic Attacks (TIA) Denies: Hx Dementia, Hx Headaches, Other Neuro Impairments/Disorders Psychiatric History: Reports: Hx Depression Denies: Hx Panic Disorder - Cancer History Hx Chemotherapy: No - Surgical History Surgery Procedure, Year, and Place: [place] [facility] [place] [facility] [place]. [place] left tympanoplasty WITH STAPES IMPLANT ([employer] MALLEOUS HEAD SERIAL # [id number] - PER [employer] INFORMATION SENT TO MRI ON ; IMPLANT IS STAINLESS STEEL STATES SOME DEGREE OF MAGNETISM TESTED MRI SAFE AT 1.5T ONLY - DR ANAYA APPROVED THIS INFORMATION FOR 1.5T ONLY). [facility] [place]. [place]MPANOP[place] [facility] [place]. 2011 HEART CATH - NO STENTS ;. 2010 HEART CATH WITH cardiac stents x 4 (PROMUS DRUG-ELUTING STENT OKAY IN NORMAL MODE ONLY, MAX 720 GAUSS/CM @ 1.5T) [facility] [place] ;. REVEAL LINQ EVENT MONITOR PLACED- 12/15/15- ED CAME OVER W/ [employer] MACHINE & DID A DOWNLOAD SO THAT NOTHING WOULD BE ERASED Hx Anesthesia Reactions: Yes - SEIZURE LIKE ACTIVITY; REINTUBATION AFTER LEFT EAR 2012 - Immunization History Date of Tetanus Vaccine: UTD Date of Influenza Vaccine: 03/05 Infectious Disease History: No Infectious Disease History: Denies: Hx Clostridium Difficile, Hx Hepatitis, Hx Human Immunodeficiency Virus (HIV), Hx of Known/Suspected MRSA, Hx Shingles, Hx Tuberculosis, Hx Known/ Suspected VRE, Hx Known/Suspected VRSA, History Other Infectious Disease, Traveled Outside the [place] in Last 30 Days - Family History Known Family History: Positive: Cardiac Disease, Hypertension, Diabetes - Social History Alcohol Use: Occasionally Hx Substance Use: No Substance Use Type: Reports: None Hx Tobacco Use: Yes Smoking Status (MU): Former Smoker Type: Cigarettes Length of Time of Smoking/Using Tobacco: 10-12 YRS Have You Smoked in the Last Year: No Review of Systems Negative: Fever, Chills Positive: Chest Pain Musculoskeletal: Other - arm and leg pain Negative: Other - neck pain Positive: Headache All Other Systems Reviewed And Are Negative: Yes Physical Exam - Summary Physical Exam Summary: Appearance: The patient is obese. Skin: The skin is warm and dry and skin color reflects adequate perfusion. HEENT: The head is normocephalic and atraumatic. The pupils are equal and reactive. The conjunctivae are clear and without drainage. Nares are patent and without drainage. Mouth reveals moist mucous membranes and the throat is without erythema and exudate. The external ears are intact. The ear canals are patent and without drainage. The tympanic membranes are intact. Neck: the neck is supple with full range of motion and non-tender. There are no carotid bruits. There is no neck vein distension. Respiratory: Chest wall tenderness. Lungs are clear to auscultation and breath sounds are symmetrical and equal. Cardiovascular: Heart is regular rate and rhythm. There is no murmur or rub auscultated. There is a little bit of pitting edema and pulses are symmetrical and equal. Abdomen: The abdomen is soft and non-tender. There are normal bowel sounds heard in all four quadrants and there is no organomegaly palpated. Musculoskeletal: There is no back tenderness noted. Extremities are non-tender with full range of motion. There is good capillary refill. There is a little bit of pitting edema. No calf tenderness elicited. Neurological: Patient is alert and oriented to person, place and time. Psychiatric: The patient has an appropriate affect and does not exhibit any anxiety or depression. Triage Information Reviewed: Yes Vital Signs On Initial Exam: Initial Vitals Temp Pulse Resp BP Pulse Ox 96.4 F 63 18 165/144 98 11/25/17 12:35 11/25/17 12:35 11/25/17 12:35 11/25/17 12:35 11/25/17 12:35 Vital Signs Reviewed: Yes Diagnostics - Vital Signs Vital Signs Temp Pulse Resp BP Pulse Ox 11/25/17 12:35 96.4 F 63 18 165/144 98 - Laboratory Lab Results: Lab Results 11/25/17 11/25/17 11/25/17 Range/Units 12:57 12:57 12:57 WBC 5.9 (3.5-10.8) 10^3/ul RBC 5.03 (4.00-5.40) 10^6/ul Hgb 14.1 (14.0-18.0) g/dl Hct 43 (42-52) % MCV 85 (80-94) fL MCH 28 (27-31) pg MCHC 33 (31-36) g/dl RDW 15 (10.5-15) % Plt Count 213 (150-450) 10^3/ul MPV 7.7 (7.4-10.4) um3 Neut % (Auto) 63.7 (38-83) % Lymph % (Auto) 23.5 L (25-47) % Boyd % (Auto) 9.6 H (0-7) % Eos % (Auto) 2.5 (0-6) % Baso % (Auto) 0.7 (0-2) % Absolute Neuts (auto) 3.8 (1.5-7.7) 10^3/ul Absolute Lymphs (auto) 1.4 (1.0-4.8) 10^3/ul Absolute Monos (auto) 0.6 (0-0.8) 10^3/ul Absolute Eos (auto) 0.1 (0-0.6) 10^3/ul Absolute Basos (auto) 0 (0-0.2) 10^3/ul Absolute Nucleated RBC 0 10^3/ul Nucleated RBC % 0.2 INR (Anticoag Therapy) (0.77-1.02) Sodium 140 (135-145) mmol/L Potassium 3.7 (3.5-5.0) mmol/L Chloride 106 (101-111) mmol/L Carbon Dioxide 28 (22-32) mmol/L Anion Gap 6 (2-11) mmol/L BUN 12 (6-24) mg/dL Creatinine 1.08 (0.67-1.17) mg/dL Est GFR ( Amer) 86.2 (>60) Est GFR (Non-Af Amer) 71.3 (>60) BUN/Creatinine Ratio 11.1 (8-20) Glucose 124 H (70-100) mg/dL Lactic Acid 1.3 (0.5-2.0) mmol/L Calcium 9.3 (8.6-10.3) mg/dL Total Bilirubin 0.40 (0.2-1.0) mg/dL AST 18 (13-39) U/L ALT 24 (7-52) U/L Alkaline Phosphatase 111 H (34-104) U/L Troponin I 0.00 (<0.04) ng/mL B-Natriuretic Peptide ( - 100) pg/mL Total Protein 7.1 (6.4-8.9) g/dL Albumin 4.0 (3.2-5.2) g/dL Globulin 3.1 (2-4) g/dL Albumin/Globulin Ratio 1.3 (1-3) 11/25/17 11/25/17 11/25/17 Range/Units 12:57 12:57 15:22 WBC (3.5-10.8) 10^3/ul RBC (4.00-5.40) 10^6/ul Hgb (14.0-18.0) g/dl Hct (42-52) % MCV (80-94) fL MCH (27-31) pg MCHC (31-36) g/dl RDW (10.5-15) % Plt Count (150-450) 10^3/ul MPV (7.4-10.4) um3 Neut % (Auto) (38-83) % Lymph % (Auto) (25-47) % Boyd % (Auto) (0-7) % Eos % (Auto) (0-6) % Baso % (Auto) (0-2) % Absolute Neuts (auto) (1.5-7.7) 10^3/ul Absolute Lymphs (auto) (1.0-4.8) 10^3/ul Absolute Monos (auto) (0-0.8) 10^3/ul Absolute Eos (auto) (0-0.6) 10^3/ul Absolute Basos (auto) (0-0.2) 10^3/ul Absolute Nucleated RBC 10^3/ul Nucleated RBC % INR (Anticoag Therapy) 0.93 (0.77-1.02) Sodium (135-145) mmol/L Potassium (3.5-5.0) mmol/L Chloride (101-111) mmol/L Carbon Dioxide (22-32) mmol/L Anion Gap (2-11) mmol/L BUN (6-24) mg/dL Creatinine (0.67-1.17) mg/dL Est GFR ( Amer) (>60) Est GFR (Non-Af Amer) (>60) BUN/Creatinine Ratio (8-20) Glucose (70-100) mg/dL Lactic Acid (0.5-2.0) mmol/L Calcium (8.6-10.3) mg/dL Total Bilirubin (0.2-1.0) mg/dL AST (13-39) U/L ALT (7-52) U/L Alkaline Phosphatase (34-104) U/L Troponin I 0.01 (<0.04) ng/mL B-Natriuretic Peptide 82 ( - 100) pg/mL Total Protein (6.4-8.9) g/dL Albumin (3.2-5.2) g/dL Globulin (2-4) g/dL Albumin/Globulin Ratio (1-3) Result Diagrams: 11/25/17 12:57 11/25/17 12:57 Lab Statement: Any lab studies that have been ordered have been reviewed, and results considered in the medical decision making process. - Radiology Chest XR Xray Interpretation: No Acute Changes - IMPRESSION: No active cardiopulmonary disease. Dr. Cadet has reviewed this report. Radiology Interpretation Completed By: Radiologist - EKG 12:43 Cardiac Rate: NL - at 63 bpm EKG Rhythm: Sinus Rhythm EKG Interpretation: Lateral T wave inversions consistent with 10/20/17. Re-Evaluation - Re-Evaluation First Eval Re-Evaluation Time: 16:21 Comment: I reviewed lab and XR results with the pt. He will be discharged home. Chest Pain Course/Dx - Course Course Of Treatment: Mr. Glaser presented with a myriad of complaints most salient of which was chest pain. He pointed to his left upper chest where he was tender to palpation. He was fairly vague about accompanying symptoms or exacerbating/relieving factors. His workup was negative including a delayed troponin and he was discharged for symptomatic treatment. - Diagnoses Provider Diagnoses: Chest pain Discharge - Sign-Out/Discharge Documenting (check all that apply): Discharge/Admit/Transfer - Discharge - Discharge Plan Condition: Stable Disposition: HOME Prescriptions: traMADol TAB* [Ultram*] 50 mg PO Q6HR PRN #[id number] tab MDD 4 PRN Reason: Pain Patient Education Materials: Chest Pain (ED) Referrals: Carlin Chu MD [Primary Care Provider] - Additional Instructions: Please follow up with your primary care provider in 2-3 days. RETURN TO THE ED FOR ANY WORSENING SYMPTOMS. - Billing Disposition and Condition Condition: STABLE Disposition: Home The documentation as recorded by the Nicholas brown Angela accurately reflects the service I personally performed and the decisions made by me, Zhao Cadet MD.
== END 2017-11-25 16:33 | disposition home or self-care (01) ==
LOC: ED 12:35
DX: R07.9 Chest pain, unspecified (principal); R51 Headache; Z88.0 Allergy status to penicillin; Z87.891 Personal history of nicotine dependence
CPT/HCPCS: 36415; 71045; 80053; 83605; 83880; 84484; 85025; 85610; 93005; 99283

== ENCOUNTER 2018-02-02 07:56 | Observation (INO) | payer MEDICARE, MEDICAID ==
--- NOTE | 2018-02-02 08:13 | ED ---
HPI Chest Pain - HPI Summary HPI Summary: This patient is a 52 year old M BIBA to [facility] with a chief complaint of R-sided CP radiating to mid-back that woke him up, beginning at approximately 0700 today. The patient rates the pain 10/10 in severity. Symptoms aggravated by nothing. Symptoms alleviated by nothing. Patient reports edema (chronic), SOB, and headache. Patient denies nausea, vomiting, diarrhea, skin diaphoresis, double vision, blurred vision, ear ache, sore throat, abd pain, dysuria, and bruising. Pt received nitro and [employer]. Pt reports a history of cardiac stents in 2010. - History of Current Complaint Chief Complaint: EDChestPainROMI Hx Obtained From: Patient Onset/Duration: Started Hours Ago, Atraumatic, Still Present Timing: Constant, Lasting Hours Initial Severity: Severe Current Severity: Severe Pain Intensity: 10 Pain Scale Used: 0-10 Numeric Chest Pain Location: Right Lateral Chest Pain Radiates: Yes Chest Pain Radiates To:: Back Aggravating Factor(s): Nothing Alleviating Factor(s): Nothing Associated Signs and Symptoms: Positive: Other: - Positive edema (chronic), SOB , and headache. Negative nausea, vomiting, diarrhea, skin diaphoresis, double vision, blurred vision, ear ache, sore throat, abd pain, dysuria, and bruising - Additional Pertinent History Primary Care Physician: ZURI - Allergy/Home Medications Allergies/Adverse Reactions: Allergies Allergy/AdvReac Type Severity Reaction Status Date / Time amoxicillin [From Augmentin] Allergy Swelling Verified 02/02/18 08:40 clavulanic acid Allergy Swelling Verified 02/02/18 08:40 [From Augmentin] mushroom Allergy Rash Verified 02/02/18 08:41 Penicillins Allergy Anaphylatic Verified 02/02/18 08:40 Shock VINEGAR Allergy Intermediate Hives Uncoded 02/02/18 08:41 Home Medications: Home Medications Atorvastatin* [Lipitor 20 MG*] 20 mg PO DAILY 02/02/18 [History Confirmed ] Fluticasone-Salmeterol 250-50* [Advair Diskus 250-50*] 1 dose INH BID 02/02/18 [ History Confirmed 02/02/18] PMH/Surg Hx/FS Hx/Imm Hx Previously Healthy: No Endocrine/Hematology History: Reports: Hx Anticoagulant Therapy - plavix Denies: Hx Diabetes, Hx Sickle Cell Disease, Hx Thyroid Disease Cardiovascular History: Reports: Hx Angina, Hx Cardiac Arrest, Hx Coronary Artery Disease, Hx Hypercholesterolemia, Hx Hypertension, Hx Myocardial Infarction, Other Cardiovascular Problems/Disorders - HEART DISEASE, CARDIAC EVENT MONITOR IMPLANTED Denies: Hx Congestive Heart Failure, Hx Pacemaker/ICD, Hx Valvular Heart Disease Respiratory History: Reports: Hx Asthma, Hx Sleep Apnea Denies: Hx Chronic Obstructive Pulmonary Disease (COPD) GI History: Reports: Hx Gastroesophageal Reflux Disease Denies: Hx Ulcer History: Reports: Hx Renal Disease - cysts, Other Problems/Disorders - bilat cyst on kidneys Musculoskeletal History: Reports: Hx Arthritis, Hx Back Problems, Other Musculoskeletal History - RANDEE Denies: Hx Scoliosis Sensory History: Reports: Hx Cataracts - right eye, Hx Contacts or Glasses Opthamlomology History: Reports: Hx Cataracts - right eye, Hx Contacts or Glasses Neurological History: Reports: Hx Seizures, Hx Transient Ischemic Attacks (TIA) Denies: Hx Dementia, Hx Headaches, Other Neuro Impairments/Disorders Psychiatric History: Reports: Hx Depression Denies: Hx Panic Disorder - Cancer History Hx Chemotherapy: No - Surgical History Surgery Procedure, Year, and Place: APR 2004 sinus [facility] [place] ;. 2007 left knee arthroscopy [facility] ;. 2012 left tympanoplasty WITH STAPES IMPLANT ([email or web address] MALLEOUS HEAD SERIAL # [id number] - PER [email or web address] INFORMATION SENT TO MRI ON ; IMPLANT IS STAINLESS STEEL STATES SOME DEGREE OF MAGNETISM TESTED MRI SAFE AT 1.5T ONLY - DR ANAYA APPROVED THIS INFORMATION FOR 1.5T ONLY). [facility] [place] ;. 2014 LEFT REVISION TYMPANOPLASTY/ MASTOIDECTOMY [place] ;. 2011 HEART CATH - NO STENTS ;. 2010 HEART CATH WITH cardiac stents x 4 (PROMUS DRUG-ELUTING STENT OKAY IN NORMAL MODE ONLY, MAX 720 GAUSS/CM @ 1.5T) [place] ;. REVEAL LINQ EVENT MONITOR PLACED- 12/15/15- ED CAME OVER [employer]/ [email or web address] MACHINE & DID A DOWNLOAD SO THAT NOTHING WOULD BE ERASED Hx Anesthesia Reactions: Yes - SEIZURE LIKE ACTIVITY; REINTUBATION AFTER LEFT EAR 2012 - Immunization History Date of Tetanus Vaccine: UTD Date of Influenza Vaccine: 03/05 Infectious Disease History: No Infectious Disease History: Denies: Hx Clostridium Difficile, Hx Hepatitis, Hx Human Immunodeficiency Virus (HIV), Hx of Known/Suspected MRSA, Hx Shingles, Hx Tuberculosis, Hx Known/ Suspected VRE, Hx Known/Suspected VRSA, History Other Infectious Disease, Traveled Outside the [place] in Last 30 Days - Family History Known Family History: Positive: Cardiac Disease, Hypertension, Diabetes - Social History Occupation: Disabled Lives: Alone Alcohol Use: Occasionally Hx Substance Use: No Substance Use Type: Reports: None Hx Tobacco Use: Yes Smoking Status (MU): Former Smoker Type: Cigarettes Length of Time of Smoking/Using Tobacco: 10-12 YRS Have You Smoked in the Last Year: No Review of Systems Negative: Skin Diaphoresis Negative: Blurred Vision, Diplopia Negative: Sore Throat, Ear Ache Positive: Chest Pain Positive: Shortness Of Breath Negative: Abdominal Pain, Vomiting, Diarrhea, Nausea Negative: dysuria Positive: Edema Negative: Bruising Positive: Headache All Other Systems Reviewed And Are Negative: No Physical Exam - Summary Physical Exam Summary: Appearance: Alert, conversive, nontoxic appearing Skin: Warm, no mottling, no rashes, no contusions. Dry, scaly skin HEENT: EOMI, PERRL, moist mucous membranes. Partially edentulous. Neck: No masses on the neck, supple Respiratory: Clear to auscultation, no rales, no rhonchi. Diminished breath sounds. Mild wheezing throughout all lung alves. Cardiovascular: RRR, pulses are symmetrical in both lower and upper extremities Abdomen: Soft, non-tender Bowel Sounds: Present Musculoskeletal: No CVA tenderness, no obvious deformity, moving all extremities in a grossly normal manner. Mild pitting edema to bilateral lower extremities Neurological: A&Ox3, CN II-XII Intact, moving all extremities symmetrically Psychiatric: Normal affect and mood Triage Information Reviewed: Yes Vital Signs On Initial Exam: Initial Vitals Temp Pulse Resp BP Pulse Ox 97.7 F 57 15 131/85 96 02/02/18 08:02 02/02/18 08:02 02/02/18 08:02 02/02/18 08:02 02/02/18 08:02 Vital Signs Reviewed: Yes Diagnostics - Vital Signs Vital Signs Temp Pulse Resp BP Pulse Ox 02/02/18 08:02 97.7 F 57 15 131/85 96 - Laboratory Result Diagrams: 02/02/18 08:17 02/02/18 08:17 Lab Statement: Any lab studies that have been ordered have been reviewed, and results considered in the medical decision making process. - Radiology CXR Radiology Interpretation Completed By: Radiologist - CXR reveals, per radiologist, no radiographic evidence for acute cardiopulmonary abnormality on this portable chest x-ray. ED physician has reviewed this radiology report. - CT CTA Chest and Thorax CT Interpretation Completed By: Radiologist - CTA chest and thorax reveals, per radiologist, 1. Image quality is limited by suboptimal bolus timing, but there appear to be nonobstructing filling defects in segment branches of the left lower lobe pulmonary arteries consistent with a small pulmonary emboli. 2. Additional chronic and degenerative changes described in the body of the report. ED physician has reviewed this radiology report. - EKG 0758 Cardiac Rate: Bradycardia EKG Rhythm: Sinus Rhythm - 57 BPM EKG Interpretation: Slightly prolonged QRS. T wave inversion in V4, V5, V6, I, and AVL. EKG Comparison: Other - Findings are new since EKG taken on 11/22/2017 Chest Pain Course/Dx - Course Course Of Treatment: This patient is a 52 year old M BIBA to [facility] with a chief complaint of R-sided CP radiating to mid-back that woke him up, beginning at approximately 0700 today. Pt reports a history of cardiac stents in 2010. Physical Exam Findings: Mild pitting edema to bilateral lower extremities. Morbidly obese. Diminished breath sounds. Mild wheezing throughout all lung alves. Dry, scaly skin. Partially edentulous. An EKG taken at 0758 reveals sinus bradycardia at 57 BPM, slightly prolonged QRS, and T wave inversion in V4 , V5, V6, I, and AVL. CXR reveals, per radiologist, no radiographic evidence for acute cardiopulmonary abnormality on this portable chest x-ray. CTA chest and thorax reveals, per radiologist, 1. Image quality is limited by suboptimal bolus timing, but there appear to be nonobstructing filling defects in segment branches of the left lower lobe pulmonary arteries consistent with a small pulmonary emboli. 2. Additional chronic and degenerative changes described in the body of the report. Blood work UA obtained. In the ED course the patient was given morphine, contrast, and Duoneb. Consult with Dr. Michael (hospitalist) at 1118. She agrees to admit pt for further evaluation. The patient is agreeable with this plan. - Diagnoses Provider Diagnoses: Chest pain, Pulmonary embolism - Provider Notifications Discussed Care Of Patient With: Jhoana Michael Time Discussed With Above Provider: 11:18 Instructed by Provider To: Other - Consult with Dr. Michael (hospitalist) at 1118. She agrees to admit pt for further evaluation. Discharge - Sign-Out/Discharge Documenting (check all that apply): Patient Departure - Admit to [facility] - Discharge Plan Condition: Stable Disposition: ADMITTED TO [facility] - Attestation Statements Document Initiated by Scribe: Yes Documenting Scribe: Cary Harris Provider For Whom Scribe is Documenting (Include Credential): Tiffanie Easton MD Scribe Attestation: ICary, scribed for Tiffanie Easton MD on 02/02/18 at 1115.
--- OUTSIDE RECORDS SUMMARY | 2018-02-02 08:17 | XMS REPORT ---
:1965 External Reference #:[id number] Author Organization [facility] Address [address] [place] [address] Phone [phone] Care Team Providers Name Role Phone Carlin Chu MD Care Team Information Sifter And Miller Unavailable Carlin Chu MD Primary Care Physician Unavailable Payers Type Date Identification Numbers Payment Provider Subscriber Medicare Primary Effective: Policy Number: Medicare-[place] 1997 [id number] Govn SRVS PayID: [id number] [address] [place] [address] Medigap Part B Policy Number: [id number] Medicaid/[place] Group Number: [id number] Medicare Primary Group Name: [id number] [address] PayID: [id number] [place] [address] Problems Date Description Provider Status Onset: 02/23/2011 Acute pharyngitis Cezar Guerra MD Active Onset: 02/23/2011 Perforation of tympanic membrane Cezar Guerra MD Active Onset: 02/23/2011 Dysfunction of eustachian tube Cezar Guerra MD Active Onset: 02/23/2011 Middle ear conductive hearing loss Cezar Guerra MD Active Onset: 02/23/2011 Sensorineural hearing loss Cezar Guerra MD Active Onset: 02/23/2011 Disorder of nasal cavity Mikala Cordova [employer] Active Onset: 02/23/2011 Gastroesophageal reflux disease Mikala Cordova [employer] Active Onset: 02/23/2011 Extrinsic asthma without status Mikala Cordova [employer] Active asthmaticus Onset: 02/23/2011 Peptic reflux disease Mikala Cordova NP Active Onset: 02/23/2011 Allergic rhinitis Mikala Cordova [employer] Active Family History Date Family Member(s) Problem(s) [...] Form Strength Qnty SIG Indications Ordering Provider Percocet 05/04 Active Tablets 5-325mg 30tab 1-2 tabs Cezar s by mouth Eddie Guerra every 4-6 MD hours as needed for pain Oxycodone/Acetami 12/03 Active Tablets 5-325mg 30tab 1-2 tabs Julio chacon s by mouth Strominge every 4-6 r M.DSandie hours as needed for pain Ipratropium 11/18 Active Solution 0.06% 6unit 2 to 4 J31.0 Julio Swift [place] s sprays in [facility] each Tomeka akbarDSandie nostril 4 times a day as needed for rhinitis Omeprazole 11/[address] 40mg 60cap 40mg po 530.81 Julio Swift /2010 [facility] r M.DSandie esophagiti s Fluticasone Nasal 09/20 Active 50mcg 1unit 2 sprays Cezar [place] /2010 s each side Eddie Guerra, bid Astepro Nasal 09/16 Active 0.15% 205 1unit 2 sprays Julio Swift [place] mcg s once a day Tani akbar M.D. Singulair 11/21 Active Tabs 10mg 30tab 1qd - Take 477.0 Cezar s One Tablet Eddie Guerra, By Mouth Every Day Advair Hfa 10/22 Active Aerosol 115/21 1unit 2 Puffs 478.19 Julio [place] /2007 [facility] r[facility]obo Please Provide Spacer Albuterol Active Aerosol 90mcg/Dos 2unit 2 Puffs Cezar Inhalation e s Q4H prn Eddie Guerra MD Clopidrogel Active Tablets 75mg Unknown Isosorbide Active 60mg 1 po qd Unknown Dinitrate SA Bystolic Active 5mg qd Unknown Simvastatin Active ?mg oen po qd Kimberley, Carlin SANTIAGO Sertraline HCL Active ?mg one po qd Kimberley, Carlin SANTIAGO Aspirin Active Tablets DR 325mg Unknown Triamterene/[place] Active Unknown chlorothiazide Nitroglycerin Active ?mg prn Only Kimberley, Carlin SANTIAGO Ranexa Active Tablets ER 500mg 1 po bid Unknown 12HR Atorvastatin Active Tablets 40mg 1 po qd Unknown Calcium Klor-Con M20 Active Tablets ER 20Meq Stefek,Pa / ul M.D. Metoprolol Active Tablets ER 50mg Unknown Succinate ER 24HR Clopidogrel Active Tablets 75mg Stefek,Pa Bisulfate ul M.D. Triamterene/[place] Active Capsules 37.5-25mg Kimberley, chlorothiazide Carlin SANTIAGO Advair Diskus Active Aerosol 250-50mcg Kimberley, /Dose Carlin SANTIAGO Proair HFA Active Aerosol 108(90Bas Kimberley, e) Carlin SANTIAGO mcg/Act Fluticasone Active Suspension 50mcg/Act Unknown Propionate Atorvastatin Active Tablets 20mg Stefek,Pa Calcium /0000 ul M.D. Famotidine Active Tablets 20mg Unknown Ciprodex 09/05 Hx Suspension 0.3-0.1% 7.500 4 drops ml left ear Pipe Fernando twice a 01/07 day for days Methylprednisolon 08/13 Hx TBPK 4mg 1pack take as Cezar directed Pipe Fernando MD 01/07 Mupirocin 04/26 Hx Ointment 2% 22gm apply to both Eddie Guerra, - nostril 01/07 twice a day Triamcinolone 05/25 Hx Cream 0.1% 15gm Apply to left ear Eddie Guerra, - twice 01/07 daily for 1 week Levofloxacin 05/04 Hx Tablets 500mg 10tab 1 by mouth s every day Eddie Guerra - 01/07 Ciprodex 09/11 Hx Suspension 0.3-0.1% 1Bott 4 drops to le left ears Eddie Guerra, - twice a 01/07 day apply rebate rx bin: [id number] rxpcn: loyalty rxgrp:[id number] folder machine adjuster: [id number]) id#[id number] 25 Ofloxacin 12/17 Hx Solution 0.3% 1unit 4 drops to Julio N. s affected Strominge - ear daily rJacobo 03/12 Ciprodex 12/15 Hx Suspension 0.3-0.1% 2unit 4 drops Julio N. s infected Strominge - ear bid rJacobo 03/12 rebate rxbin: [id number] rxpcn: loyalty rxgrp: [id number] folder machine adjuster: ([id number]) id: [id number] Ciprodex 08/28 Hx Suspension 0.3-0.1% 2unit 4 drops 385.32 Julio N. s infected Strominge - ear bid Jacobo akbar 12/02 rebate rxbin: [id number] rxpcn: loyalty rxgrp: [id number] folder machine adjuster: ([id number]) id: [id number] Levofloxacin 07/23 Hx Tablets 500mg 10tab 1 po qd s Eddie Guerra, - 12/02 Oxycodone/Acetami 07/23 Hx Tablets 5-325mg 30tab 1-2 tabs Cezar s by mouth Eddie Guerra, - every 4-6 12/02 hours needed for pain Ciprodex 03/04 Hx Suspension 0.3-0.1% 2unit 4 drops 381.3 s infected Pipe Fernando ear bid x 07/23 14 apply areli rxbin: [id number] rxpcn: alberto rxgrp: [id number] folder machine adjuster: ([id number]) id: [id number] Bacitracin 11/18 Hx 1Tube apply to 472.0 [...] 14tab 1 tablet s twice a Pipe eFrnando day for 7 Aciphex 04/[address] 20mg 30tab 1 po Daily Julio NSandie s Tani akbar M.D. 05/24 Mucinex DM 03/10 Hx Tablets ER 60-1200 5Days 1 op qd 478.1-4 Cezar Maximum 12HR Pipe Fernando MD 09/30 Fexofenadine HCL 12/28 Hx Tabs 180mg 30tab 1qd - Take s One Tablet Pipe Fernando By Mouth 05/24 Every Day Medrol Dosepak 07/28 Hx Tablets 4mg 1Pack Take as 350.2 Directed Pipe Fernando MD 05/24 Prednisone 05/04 Hx Tablets 20mg 5Days 3 PO qd Julio Swift With Food Tani akbar M.D. 12/28 Augmentin 04/26 Hx Tablets 875mg 14Day 1 po bid 473.0 Julio Ernst. s with food Tani akbar M.D. 05/04 Aciphex 12/[address] 20mg 60tab 1 po bid 530.81 s Eddie Guerra - 09/30 Fexofenadine HCL 12/03 Hx Tablets 180mg 30tab 1 po qd 477.8 . zeferino akbar M.D. 12/28 Zyrtec 11/03 Hx Tablets 10mg 30tab 1 PO qd . zeferino akbar M.D. 12/28 Fluticasone 04/02 Hx Suspension 50mcg/Act 1mont 2 sprays 471.8 Cezar h each Eddie Guerra - nostril 05/04 Prednisone 01/31 Hx Tablets 10mg 40tab 4 Tabs PO 471.8 s Every Day Eddie Guerra - X4 D, Then 03/03 3 Tabs PO /2006 Every Day X 4D, Then 2 Tab PO Daily X4D, Then 1 Tab PO Daily X4D Nasacort Aq 04/24 Hx Suspension 55mcg/Act 1unit 2 Sprays 471.8 Cezar Intranasal [place] /2005 uation s Each Eddie Guerra, - Nostril qd 05/04 Levaquin 04/24 Hx Tablets 500mg 10tab 1 Tablet 471.8 Cezar s By Mouth Eddie Guerra - Daily 03/03 Until Finished Nexium 10/24 Hx Unknown /2005 - 05/04 Singulair 07/11 Hx Tablets 10mg 30tab 1 PO qd 471.8 Cezar s Pipe Fernando MD 11/03 Nasacort Aq 09/13 Hx Suspension 55McG/Act 1unit 2 sprays 473.2 Cezar Intranasal [place] /2004 uation s each Eddie Guerra - nostril qd 12/02 Lisinopril 00 Hx Unknown /0000 - 12/02 Pepcid ac Ez Hx Unknown Chews Maximum /0000 Strength - 12/02 Immunizations CPT Code Status Date Vaccine Lot # [id number] Ordered 02/17/2015 Influenza Virus Vaccine, 3 Years Of Age And Above, Intramuscular 78460 Given Unknown Influenza Virus Vaccine, 3 Years Of Age And Above, Intramuscular Vital Signs Date Vital Result Comment 01/07/2018 Weight 338.00 lb Weight in kg's 153.317 Height 68.50 inches 5'8.50" Height in cm's 174.0 cm BMI (Body Mass Index) 50.6 kg/m2 08/13/2017 Weight 335.00 lb Weight in kg's [...] finding 04/26/2008 Culture Sensitivity FEW COLONIES OF < SEE 12 NOTE> 1 SDS 05/11 2 SDS 05/11 [...] <0.06 ng/ml NOT SUPPORTIVE OF DIAGNOSIS OF MT 0.06 - 0.50 ng/ml INDETERMINATE: SUGGEST SERIAL STUDIES IF CLINICALLY INDICATED. > 0.5 ng/ml CONSISTENT WITH DIAGNOSIS OF MT . 9 Anion gap measurement may be of limited value in the presence of any alkalosis, especially in a combined acid base disorder. . 10 Note change in reference range as of 01/08/08. The change was based on recommendations from the [place] [employer]. 11 Please note change in reference range effective 07 . 12 FEW COLONIES OF NORMAL RESPIRATORY MARY BETH Procedures Date CPT Code Description Status 08/13/2017 72286 Nasal Endoscopy, Diagnostic Completed 03/21/2016 93746 Nasal Endoscopy, Diagnostic Completed 05/11/2015 50174 Revision Mastoidectomy Resulting In Modified Radical Completed Mastoidctomy 01/28/2014 98630 Fiberoptic Laryngoscopy Completed 09/29/2013 09423 Tympanometry Completed 09/29/2013 35048 Comprehensive Audiogram Completed 03/12/2013 05000 Tympanometry Completed 03/12/2013 29511 Comprehensive Audiogram Completed 01/21/2013 99972 Binocular Microscopy Completed 12/09/2012 24594 Tympanomastoidectomy W/Ossicular Chain Completed 09/25/2012 17808 Medical Records Completed 08/28/2012 71552 Tympanometry Completed 08/28/2012 75217 Comprehensive Audiogram Completed 06/05/2012 28672 Tympanometry Completed 06/05/2012 49346 Comprehensive Audiogram Completed 03/04/2012 67013 Binocular Microscopy Completed 11/19/2011 66819 Nasal Endoscopy, Diagnostic Completed 07/06/2011 25534 Tympanometry Completed 07/06/2011 68832 Comprehensive Audiogram Completed 07/03/2011 67037 Tympanometry Completed 07/03/2011 73517 Binocular Microscopy Completed 11/03/2010 28047 Fiberoptic Laryngoscopy Completed 09/19/2010 58407 Tympanometry Completed 05/24/2010 38049 Tympanometry Completed 05/24/2010 72328 Comprehensive Audiogram Completed 11/09/2009 21057 Tympanometry Completed 04/07/2009 84732 Tympanometry Completed 03/30/2009 56690 Binocular Microscopy Completed 03/10/2009 65953 Tympanometry Completed 03/10/2009 72115 Comprehensive Audiogram Completed 04/26/2008 83543 Nasal Endoscopy, Diagnostic Completed 01/15/2008 04207 Fiberoptic Laryngoscopy Completed 01/05/2008 27755 No Show Fee Completed 11/04/2007 32566 Demonstration/Eval. Of Patient Utilization Of Completed Spacer/Nebulizer 11/04/2007 04888 Respiratory Flow Volume Loop Completed 11/04/2007 37922 Bronchospasm Evaluation Completed 07/24/2007 74625 Prick Test Completed 07/24/2007 05772 Prick Test Completed 07/11/2007 26361 Nasal Endoscopy, Diagnostic Completed 04/02/2007 16196 Nasopharyngoscopy Completed 01/31/2007 64333 Tympanometry Completed 01/31/2007 70897 Tympanometry Completed 01/31/2007 35488 Comprehensive Audiogram Completed 01/31/2007 06689 Comprehensive Audiogram Completed 01/31/2007 63850 Nasal Endoscopy, Diagnostic Completed 12/24/2006 98604 Tympanostomy W/Tube Local Or Topical Anes. Completed 12/02/2006 51766 Tympanometry Completed 12/02/2006 14422 Tympanometry Completed 12/02/2006 46195 Comprehensive Audiogram Completed 12/02/2006 39816 Comprehensive Audiogram Completed 10/26/2005 45222 Nasal Endoscopy, Diagnostic Completed 04/06/2005 65335 Nasal Endoscopy, Diagnostic Completed 09/13/2004 78331 Nasal Endoscopy W/ Debridement Completed 05/24/2004 10679 Nasal Endoscopy W/ Debridement Completed 05/02/2004 74114 Nasal Endoscopy W/Maxllary Antrostomy W/Excision Of Completed Poylp 05/02/2004 05263 Nasal Endoscopy With Ethmoidectomy, Partial Completed 04/28/2004 84858 Nasal Endoscopy, Diagnostic Completed 03/27/2004 41557 Nasal Endoscopy, Diagnostic Completed 03/01/2004 14708 Nasal Endoscopy, Diagnostic Completed 07/01/2003 88387 No Show Fee Completed Encounters Type Date Location Provider CPT E/M Dx Office Visit 01/07/2018 10:30a [place],After 05/20/07 Cezar Guerra, 07727 H71.12 J31.0 G50.1 Office Visit 10/04/2017 10:00a [place],After 05/20/07 [place] [address] H71.12 Office Visit 06/06/2017 11:15a [place],After 05/20/07 [place] [address] H71.12 Office Visit 02/15/2017 11:00a [place],After 05/20/07 [place] [address] H71.12 H72.2x1 Office Visit 08/28/2016 10:30a [place],After 05/20/07 [place] [address] H71.12 Office Visit 04/26/2016 2:45p [place],After 05/20/07 [place] [address] J31.0 H71.12 Office Visit 12/30/2015 11:00a [place],After 05/20/07 [place] [address] H71.12 H60.11 Office Visit 09/29/2015 11:00a [place],After 05/20/07 [place] [address] H71.12 Office Visit 05/25/2015 3:45p [place],After 05/20/07 [place] [address] L23.3 Office Visit 03/24/2015 11:30a [place],After 05/20/07 [place] [address] H71.12 Office Visit 03/17/2015 10:30a [place],After 05/20/07 [place] [address] H71.12 Office Visit 03/03/2015 11:00a [place],After 05/20/07 [place] [address] H65.32 H71.12 Office Visit 12/31/2014 10:15a [place],After 05/20/07 [place] [address] 381.29 385.32 Office Visit 10/28/2014 3:45p [place],After 05/20/07 [place] [address] 381.29 385.32 Office Visit 04/01/2014 9:45a [place],After 05/20/07 [place] [address] 381.29 Office Visit 01/28/2014 10:45a [place],After 05/20/07 [place] [address] 381.29 787.20 Office Visit 11/04/2013 10:15a [place],After 05/20/07 [place] [address] 786.2 787.20 493.00 Office Visit 09/29/2013 10:00a [place],After 05/20/07 [place] [address] 389.03 389.10 462-2 Office Visit 09/17/2013 10:30a [place],After 05/20/07 [place] [address] 380.10 389.03 Office Visit 09/11/2013 10:30a [place],After 05/20/07 [place] [address] 380.10 381.29 Office Visit 07/23/2013 9:45a [place],After 05/20/07 [place] [address] 385.32 Office Visit 04/09/2013 11:00a [place],After 05/20/07 [place] [address] 472.0 385.32 Office Visit 03/12/2013 10:30a [place],After 05/20/07 [place] [address] 385.32 389.03 389.10 477.8 Office Visit 01/21/2013 4:00p [place],After 05/20/07 Mikala Cordova [employer] 42440 385.32 381.29 Office Visit 12/03/2012 1:45p [place],After 05/20/07 [place] [address] 385.32 381.29 389.03 Office Visit 08/28/2012 2:15p [place],After 05/20/07 Mikala Cordova [employer] 24650 385.32 381.29 Office Visit 06/05/2012 1:30p [place],After 05/20/07 [place] [address] 385.32 381.29 389.03 389.10 Office Visit 05/21/2012 11:30a [place],After 05/20/07 [place] [address] 385.32 Office Visit 05/07/2012 11:15a [place],After 05/20/07 [place] [address] 381.29 Office Visit 03/13/2012 3:15p [place],After 05/20/07 [place] [address] 381.29 Office Visit 03/04/2012 9:30a [place],After 05/20/07 Hillirdre [employer] 60251 381.3 Office Visit 11/19/2011 2:45p [place],After 05/20/07 Hillirdre [employer] 42401 350.2 472.0 Office Visit 09/18/2011 3:30p [place],After 05/20/07 Hillirdre [employer] 39495 477.8 493.01 Office Visit 09/05/2011 11:15a [place],After 05/20/07 [place] [address] 389.03 389.10 384.82 Office Visit 07/03/2011 4:00p [place],After 05/20/07 Hillirdre [employer] 25049 384.82 Office Visit 02/22/2011 1:45p [place],After 05/20/07 [place] [address] 462 384.20 381.81 389.03 389.10 Office Visit 11/03/2010 9:30a [place],After 05/20/07 Hillirdre [employer] 20379 478.19 530.81 493.00 530.11 Office Visit 10/10/2010 2:00p [place],After 05/20/07 Hillirdre [employer] 24611 384.20 477.8 493.00 Office Visit 09/19/2010 1:30p [place],After 05/20/07 Hillirdre [employer] 14475 384.20 381.81 Office Visit 05/24/2010 2:00p [place],After 05/20/07 [place] [address] 389.03 389.10 381.81 384.20 Office Visit 11/09/2009 11:30a [place],After 05/20/07 Hillirdre [employer] 16603 384.20 381.81 350.2 Office Visit 10/19/2009 1:30p [place],After 05/20/07 [place] [address] 477.8 384.20 381.81 Office Visit 09/30/2009 10:00a [place],After 05/20/07 [place] [address] 477.8 493.00 384.20 389.03 Office Visit 04/07/2009 3:45p [place],After 05/20/07 [place] [address] 384.20 388.71 381.81 Office Visit 03/30/2009 2:30p [place],After 05/20/07 [place] [address] 384.20 388.71 Office Visit 03/10/2009 1:45p [place],After 05/20/07 [place] [address] 388.31 478.1-4 Office Visit 12/28/2008 4:00p [place],After 05/20/07 [place] [address] 478.19 478.1-4 477.8 493.00 Office Visit 07/28/2008 3:15p [place],After 05/20/07 [place] [address] 350.2 473.0 473.2 471.8 Office Visit 05/04/2008 2:45p [place],After 05/20/07 Julio Arreola, 37748 493.01 M.D. 530.81 780.57 278.01 429.3 Office Visit 04/28/2008 1:48p [place],After 05/20/07 Julio Arreola, 26524 493.00 M.D. Office Visit 04/26/2008 9:30a [place],After 05/20/07 Mikala Cordova [employer] 02559 473.0 530.81 Office Visit 03/11/2008 4:00p [place],After 05/20/07 [place] [address] 780.57 381.81 389.03 Office Visit 02/16/2008 10:15a [place],After 05/20/07 [place] [address] 780.57 530.11 Office Visit 12/04/2007 3:30p [place],After 05/20/07 Mikala Cordova [employer] 59544 530.81 477.8 493.90 Office Visit 11/04/2007 10:15a [place],After 05/20/07 Mikala Cordova [employer] 72725 478.19 478.1-4 477.8 Office Visit 10/23/2007 3:00p [place],After 05/20/07 Mikala Cordova [employer] 61488 478.1-4 381.3 493.00 477.0 477.8 Office Visit 07/31/2007 10:00a [place]After 05/20/07 Mikala Cordova [employer] 10520 477.8 477.0 Office Visit 07/11/2007 3:30p [place],After 05/20/07 [place] [address] 477.8 478.19 478.1-4 Office Visit 05/15/2007 9:00a [place],After 05/20/07 [place] [address] 477.8 Office Visit 04/02/2007 2:15p [place],After 05/20/07 [place] [address] 477.8 471.8 389.2 381.81 474.12 Office Visit 03/03/2007 2:45p [place],After 05/20/07 [place] [address] 473.0 474.12 381.81 Office Visit 01/31/2007 3:15p [place],After 05/20/07 [place] [address] 381.81 389.2 471.8 474.12 Office Visit 12/02/2006 2:30p [place],After 05/20/07 [place] [address] 381.81 389.2 Office Visit 04/24/2006 9:45a [place],After 05/20/07 [place] [address] 471.8 473.0 461.0 Office Visit 07/11/2005 1:30p [place],After 05/20/07 [place] [address] 471.8 780.57 493.0 Office Visit 04/06/2005 1:30p [place],After 05/20/07 [place] [address] 473.2 471.8 389.03 Office Visit 05/09/2004 9:30a [place],After 05/20/07 Julio Arreola, 10359 473.2 M.DSandie 471.8 Office Visit 02/04/2004 9:45a [place],After 05/20/07 Dank Pat, 56772 780.57 MSandieD. Office Visit 05/28/2003 11:15a [place],After 05/20/07 Dank Pat, 68271 478.1 MSandieD. 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
[2018-02-02 08:28] LABS: ABS Basophils 0.1 10^3/ul (0-0.2); ABS Eosinophils 0.2 10^3/ul (0-0.6); ABS Lymphocytes 1.6 10^3/ul (1.0-4.8); ABS Monocytes 0.5 10^3/ul (0-0.8); ABS Neutrophils 2.4 10^3/ul (1.5-7.7); ABS Nucleated RBC 0 10^3/ul; Eosinophil % 3.6 % (0-6); Hematocrit 41 % (42-52); Hemoglobin 13.4 g/dl (14.0-18.0); Lymphocyte % 33.4 % (25-47); Mean Corpuscular HGB Conc 33 g/dl (31-36); Mean Corpuscular Hemoglobin 28 pg (27-31); Mean Corpuscular Volume 84 fL (80-94); Mean Platelet Volume 7.5 um3 (7.4-10.4); Nucleated Red Blood Cells % 0; Platelet Count 185 10^3/ul (150-450); Red Blood Count 4.82 10^6/ul (4.00-5.40); Red Cell Distribution Width 15 % (10.5-15); White Blood Count 4.7 10^3/ul (3.5-10.8)
[2018-02-02 08:41] LABS: INR 1.01 (0.77-1.02)
[2018-02-02] MEDS ORDERED: Morphine INJ* 2 MG/ML 1 ML SYRINGE (TWO MG - NEW SYRINGE VERSION) IV ONE (08:45)
[2018-02-02 08:46] LABS: EGFR Non-African American 64.3 (>60)
[2018-02-02] MEDS ORDERED: Albuterol/Ipratropium NEB.SOL* Albuterol 2.5 MG/Ipratropium 0.5 MG 3 ML INH ONE (08:46)
[2018-02-02] MEDS ORDERED: Iohexol 350* (CONTRAST) 500 ML MDV IV ONE (09:00)
--- NOTE | 2018-02-02 09:14 | RAD ---
INDICATION: Chest pain COMPARISON: Most recent comparison chest x-rays dated November 25, 2017 TECHNIQUE: Single AP portable view of the chest was obtained. FINDINGS: Image quality is compromised due to the relative inferiority of a portable chest x-ray. Again noted over the left chest is an implantable cardiac monitoring device. The heart and mediastinum exhibit normal size and contour. The lungs are grossly clear. There is no evidence of a large pleural effusion. Visualized bones are normal for the patient's age. IMPRESSION: No radiographic evidence for acute cardiopulmonary abnormality on this portable chest x-ray.
--- NOTE | 2018-02-02 09:59 | RAD ---
INDICATION: Chest pain radiating to the back COMPARISON: Similar CTA dated April 05, 2017 TECHNIQUE: Axial source images were acquired following the administration of 80 mL Omnipaque [address] angiographic technique. Coronal and sagittal reconstructed images were constructed and reviewed. FINDINGS: Image quality is limited by suboptimal bolus timing. The Hounsfield units overlying the right left mainstem pulmonary arteries measure 230 Hounsfield units. Only the central, lobar and proximal segmental branches are reliably evaluated. At the left lower lobe there are nonobstructing filling defects in the segmental branches (image 134 and 140 for example). There are no focal infiltrates or effusions. There are no pulmonary parenchymal masses. The heart is normal in size. There is no evidence of pericardial effusion. There is no evidence of aortic aneurysm or dissection. There is no mediastinal, hilar, or axillary lymphadenopathy. Degenerative changes of the thoracic spine includes loss of intervertebral disc height and anterior marginal osteophyte formation. Fluid density renal cysts are noted in the bilateral kidneys. IMPRESSION: 1. Image quality is limited by suboptimal bolus timing, but there appear to be nonobstructing filling defects in segmental branches of the left lower lobe pulmonary arteries consistent with small pulmonary emboli. 2. Additional chronic and degenerative changes described in the body the report.
[2018-02-02] MEDS ORDERED: Enoxaparin(*) 150 MG/ML 1 ML SYRINGE SUBCUT SCH (12:00)
[2018-02-02] MEDS ORDERED: traMADol TAB* 50 MG PO PRN (12:16)
[2018-02-02] MEDS ORDERED: Nitroglycerin TAB 0.4 MG* 0.4 MG TAB SL PRN (12:16)
[2018-02-02] MEDS ORDERED: Enoxaparin(*) 150 MG/ML 1 ML SYRINGE SUBCUT ONE (12:28)
[2018-02-02] MEDS: Morphine VIAL* 4 MG/ML VIAL (1 ml vial) IV PRN (14:55)
--- NOTE | 2018-02-02 17:23 | RAD ---
HISTORY: Bilateral lower extremity swelling TECHNIQUE: Multiple transverse and longitudinal ultrasound images were obtained of the veins of the right lower extremity using grayscale, color Doppler, and spectral Doppler imaging with and without compression and with augmentation. FINDINGS: VEINS: The common femoral vein, deep femoral vein, femoral vein and popliteal vein are compressible throughout their course, with normal flow on color Doppler imaging and normal response to augmentation on spectral Doppler imaging. SOFT TISSUES: Grossly normal. No large popliteal fossa cyst was identified. IMPRESSION: No sonographic evidence of deep vein thrombosis.
[2018-02-02] MEDS: Mometasone/Formoter 200/5 MDI INH SCH (19:29)
--- NOTE | 2018-02-02 20:11 | HP ---
CC: Dr. Chu * [facility] MEDICINE HISTORY AND PHYSICAL: DATE OF ADMISSION: 02/02/18 PRIMARY CARE PROVIDER: Dr. Chu. ATTENDING PHYSICIAN: Dr. Jhoana Luna * (dictation provided by Marguerite Grewal, VIVI ). CHIEF COMPLAINT: Chest pain. HISTORY OF PRESENT ILLNESS: Mr. Glaser is a 52-year-old male with frequent admissions and visits to emergency room for chest pain, who has a history of coronary artery disease with posterior wall CO and stent placement in 2010 as well as obstructive sleep apnea, on CPAP, morbid obesity, hypertension, hyperlipidemia, and asthma. He presents today to the hospital with concern for 10/10 chest pain. Mr. Glaser states he was feeling in his normal state of health yesterday, he had no complaints. Mr. Glaser states he was in his normal state of health yesterday, he went out to his adventism where he had a fish sanchez dinner. He was feeling well and he went to bed last night. He was awoken in the early hours this morning with 10/10 chest pain. He states that this pain is similar to his history of chest pain except this pain now is associated with radiation into the back. He states the chest feels a little bit tight, but he is not short of breath. He denies diaphoresis or nausea. He denies any recent history of pain in his calf. He has chronic bilateral lower extremity edema. He denied any fever, any cough, any nausea, vomiting, diarrhea, abdominal pain. In the emergency room, Mr. Glaser had labs, which showed a normal troponin, rest of his labs were unremarkable. His BNP was 31. He went on for chest x-ray that showed no acute process, but then a chest thorax CTA was a poor quality study that showed suggestion of small filling defects in the segmental branches of the left lower lobe consistent with a small pulmonary emboli. His vital signs are stable. He is not hypoxic. He is not tachycardiac. PAST MEDICAL HISTORY: 1. Coronary artery disease with posterior wall CO in 2010 with stent placement. 2. Question of seizure disorder earlier this year, but now off medication, managed by Dr. Loaiza. 3. Obstructive sleep apnea, with CPAP. 4. Morbid obesity. 5. Hyperlipidemia. 6. Hypertension. 7. Peripheral vascular disease. 8. Asthma. 9. History of total knee arthroplasty. 10. History of Mobitz type 1 second-degree AV block. 11. Chronic chest pain. 12. History of CVA "cryptogenic." 13. History of inner ear surgery. 14. History of sinus surgery. MEDICATIONS: Outpatient are confirmed with the patient to be: 1. Advair 250/50, 1 dose inhaled b.i.d. 2. Atorvastatin 20 mg p.o. daily. 3. Aspirin 325 mg p.o. daily. 4. Triamterene/hydrochlorothiazide 37.5/25 one cap p.o. daily. 5. Potassium chloride 20 mEq 1 tab p.o. daily. 6. Famotidine 20 mg p.o. b.i.d. 7. Tramadol 50 mg p.o. q.6 hours p.r.n. 8. Nitroglycerin tab 0.4 mg sublingually q.5 minutes p.r.n. 9. Nebivolol 10 mg p.o. daily. ALLERGIES: AMOXICILLIN, CLAVULANIC ACID, MUSHROOMS, and PENICILLIN. FAMILY HISTORY: Both his mother and father related to heart failure. SOCIAL HISTORY: The patient states he smoked briefly a very long time ago. No report of alcohol or drug use. He lives alone. He is on disability, is not currently working. He states that his sister, Camilla, will be his healthcare proxy. REVIEW OF SYSTEMS: A 14-point review of systems was completed with Mr. Glaser and all those not mentioned above were negative. PHYSICAL EXAMINATION GENERAL: Mr. Glaser is lying in the bed. He is in no acute distress. He states is in 9/10 chest pain. VITAL SIGNS: Blood pressure 138/75, heart rate 58, temperature 97.7, respiratory rate 12, O2 saturation 97% on room air. LUNGS: Clear to auscultation bilaterally today. There is no wheezing, or rhonchi appreciated. There is good aeration. No accessory muscle use. HEART: S1, S2. No murmur, rub, or gallop and regular. ABDOMEN: Soft, nontender, with bowel sounds positive x4. EXTREMITIES: No cyanosis. Positive for trace to 1+ edema. NEUROLOGIC: He is alert. He is oriented x3. He moves all extremities equally. There is no facial asymmetry or focal weakness. Extraocular movements are intact. SKIN: Intact. LABORATORY DATA: Sodium 140, potassium 3.6, chloride 107, serum bicarbonate 28 , BUN 15, creatinine 1.18, glucose 108. Magnesium 2.0. Troponin 0.01. BNP is 31. TSH 3.53. WBC 4.7, hemoglobin 13.4, hematocrit 41, platelet count 185. INR 1.01. IMAGING: Chest x-ray is as follows: "No radiographic evidence for acute cardiopulmonary abnormality on this portable chest x-ray." The chest thorax CTA is as follows: "Image quality is limited by suboptimal bolus timing, but there appeared to be nonobstructing filling defects in the segmental branches of the left lower lobe, pulmonary artery is consistent with small pulmonary emboli. Additional chronic and degenerative changes described in the body of the report." ASSESSMENT: Mr. Glaser is a 52-year-old male with a past medical history of coronary artery disease with stent placement in 2010, as well as obstructive sleep apnea, on CPAP, morbid obesity, and asthma, who presents today to the hospital with concern for chest pain, found to have small pulmonary emboli on the left lower lobe. Our plans are for observation in the hospital for the followin. Chest pain: The patient has had a chronic history of intermittent severe chest pain. He has had multiple levels of workup including a repeat cardiac catheterization since 2010, stent placement that failed to show any significant coronary artery disease, though certainly he is at high risk. The fact that he has had negative workups repeatedly makes me question whether or not his symptoms are actually related to the pulmonary emboli discovered on the CTA of the chest today. Regardless, these pulmonary emboli are present and require treatment. The patient has been started on Lovenox in the emergency room. I reviewed the case with Dr. Luna and with the patient, and given him the opportunity to decide between using injections of Lovenox with warfarin and frequent monitoring versus using Xarelto, and at this time our plan is to use Xarelto. The patient will be on 15 mg p.o. b.i.d. and then transition over to 20 mg after the first 21 days. Our recommendation would be that Dr. Chu could consider monitoring the factor Xa level given that the patient is morbidly obese. I plan to check a transthoracic echocardiogram to evaluate for cardiac changes that would suggest that there is pressure overload, although at this time I think there is a low likelihood of this. I also plan to Doppler the bilateral lower extremities given that they are both edematous. I think if there was significant clot burden found in the lower extremities, then we will ask to switch from Xarelto to Lovenox with warfarin, but if those are negative, I think Xarelto would continue to be a good choice. 2. Asthma. No evidence of acute exacerbation. Continue his Advair. 3. Hyperlipidemia. Continue atorvastatin. 4. Coronary artery disease. Plan to just use the aspirin 81 mg instead of 325 mg while the patient is on anticoagulation. He will continue on his home Nebivolol. 5. Hypertension. Continue Nebivolol and Dyazide. 6. Code status is full code. 7. Gastroesophageal reflux disease. Continue Pepcid. 8. Disposition: To the medical floor or telemetry floor. TIME SPENT: Approximately 60 minutes was spent on the admission of this patient , more than half of the time was spent with the patient at the bedside reviewing the events leading up to this hospitalization, performing a physical examination, and reviewing my plan of care. MARGUERITE GREWAL NP [id number]/CPS #: [id number] MEDHAT
[2018-02-02] MEDS: Famotidine TAB* 20 MG PO SCH (21:14)
[2018-02-02] MEDS: Rivaroxaban TAB(*) 15 MG PO SCH (23:32)
[2018-02-03] MEDS ORDERED: Perflutren Lipid Microsphere* 3 ML VIAL ONE (08:00)
[2018-02-03] MEDS: Mometasone/Formoter 200/5 MDI INH SCH ×2 (08:01→21:39)
[2018-02-03] MEDS: Famotidine TAB* 20 MG PO SCH ×2 (09:55→20:59)
[2018-02-03] MEDS: NEBIVOLOL 2.5 MG PO SCH (09:55)
[2018-02-03] MEDS: Morphine VIAL* 4 MG/ML VIAL (1 ml vial) IV PRN ×2 (09:55→14:39)
[2018-02-03] MEDS: Potassium Chlor TAB* 20 MEQ TAB.ER PO SCH (09:55)
[2018-02-03] MEDS: Aspirin 81 mg CHEW TAB* 81 MG TAB.CHEW PO SCH (09:55)
[2018-02-03] MEDS: Triamterene/HCTZ 37.5-25 MG* CAP PO SCH (09:55)
[2018-02-03] MEDS: Atorvastatin* 20 MG TAB PO SCH (09:55)
--- NOTE | 2018-02-03 10:38 | ECHO ---
Patient: BRIANA VELEZ [facility] Rec#: [id number] : 1965 Date: 02/03/2018 Age: 52y Height: 175 cm / 68.9 in Weight: 157.27 kg / 346.6 lbs Sex: M BSA: 2.61 Room#: 432 Admit Date#: 02/02/2018 Type: Inpatient Referring: Marguerite Grewal NP Reading: Augusto Willis MD Case Planner: Virginia Joy RDCS CC: Carlin Chu MD Transthoracic Echocardiogram Indication: Pulmonary embolism BP: 124/69 HR: 56 Rhythm: Bradycardia Findings History: CAD, VT, s/p PCI, RANDEE w/ CPAP, VT, HTN, HLD, PVD, mobitz type 1 second degree heart block. Technical Comments: The study is technically limited due to poor apical windows. Completed at 0900. Left Ventricle: The left ventricular chamber size is moderately dilated. Mild concentric left ventricular hypertrophy is observed. There is a focal wall motion abnormality present. There is mildly decreased left ventricular systolic function. The estimated ejection fraction is 45-50%. There is no consistent Doppler evidence of clinically significant diastolic dysfunction. The mid inferolateral, mid inferior, and apical inferior wall segments are hypokinetic (score 2). Overall wallmotion score index is 2.00 Left Atrium: The left atrium is moderate to severely dilated. Right Ventricle: The right ventricle is mildly dilated. The right ventricular global systolic function is mildly reduced. Right Atrium: The right atrium is moderate to severely dilated. Aortic Valve: The aortic valve is trileaflet. There is mild thickening of the right coronary cusp. There is no evidence of aortic regurgitation. There is no evidence of aortic stenosis. Mitral Valve: The mitral valve leaflets are mildly thickened. There is a trace of mitral regurgitation. There is no evidence of mitral stenosis. Tricuspid Valve: The tricuspid valve leaflets are normal. There is trace tricuspid regurgitation. Unable to estimate the right ventricular systolic pressure. There is no tricuspid stenosis. Pulmonic Valve: The pulmonic valve appears normal. There is a trace pulmonic regurgitation. There is no pulmonic stenosis. Pericardium: There is no significant pericardial effusion. A pericardial fat pad is visualized. Aorta: There is borderline dilatation of the ascending aorta. There is no dilatation of the aortic arch. There is mild dilatation of the aortic root. Pulmonary Artery: The main pulmonary artery is not well visualized. Venous: The inferior vena cava appears normal in size. There is a greater than 50% respiratory change in the inferior vena cava dimension. Contrast: Definity was used to optimize study. 5 mL of dilute Definity were utilized. Intravenous contrast was used to enhance endocardial border definition. Conclusions Mild concentric left ventricular hypertrophy is observed. There is mildly decreased left ventricular systolic function. The estimated ejection fraction is 45-50%. The mid inferolateral, mid inferior, and apical inferior wall segments are hypokinetic (score 2). The left atrium is moderate to severely dilated. There is no evidence of aortic stenosis. There is a trace of mitral regurgitation. There is trace tricuspid regurgitation. Unable to estimate the right ventricular systolic pressure. There is no significant pericardial effusion. Compared to study of 10/31/15, the LV function is slightly lower. Valve function is the same. No dilation of the RV Measurements Name Value Normal Range RVIDd (AP) 2D 3.3 cm (0.9 - 2.6) RVDdMajor (2D) 4.9 cm (2.2 - 4.4) RAd ISD 4CH 6.7 cm (3.4 - 4.9) RA (A4C)W 5.2 cm (2.9 - 4.6) IVSd (2D) 1.1 cm (0.6 - 1) LVPWd (2D) 1.1 cm (0.6 - 1) LVIDd (2D) 6.2 cm (3.6 - 5.4) LVIDs (2D) 5.1 cm - LV FS (2D) 18 % (25 - 45) Aortic Annulus 2.3 cm (1.4 - 2.6) Ao root diameter (2D) 3.6 cm (2.1 - 3.5) Ascending Ao 3.4 cm (2.1 - 3.4) Aortic arch 2.8 cm (1.8 - 3.4) LA dimension (AP) 2D 5.6 cm (2.3 - 3.8) LAd ISD 4CH 7.1 cm (2.9 - 5.3) LA ISD 4CH W 5.7 cm (2.5 - 4.5) Name Value Normal Range LA ESV BP (A/L) index 43 ml/m2 - Name Value Normal Range MV E-wave Vmax 0.7 m/sec - MV deceleration time 219 msec - MV A-wave Vmax 0.58 m/sec - MV E:A ratio 1.3 ratio - LV septal e' Vmax 0.1 m/sec - LV lateral e' Vmax 0.1 m/sec - LV E:e' septal ratio 7 ratio - LV E:e' lateral ratio 7 ratio - Name Value Normal Range AV Vmax 1.4 m/sec - AV VTI 29.7 cm - AV peak gradient 8 mmHg - AV mean gradient 5 mmHg - LVOT Vmax 1.1 m/sec - LVOT VTI 23.6 cm - LVOT peak gradient 4 mmHg - LVOT mean gradient 2 mmHg - HORACE Vmax 1 m/sec - Name Value Normal Range IVC diameter 1.3 cm - Wallmotion BAS Not Seen BA Not Seen BAL Not Seen ASHLIE Not Seen BI Not Seen BIS Not Seen MAS Not Seen MA Not Seen MAL Not Seen MIL Hypokinetic VT Hypokinetic MIS Not Seen Not Seen AA Not Seen AL Not Seen AI Hypokinetic APEX Not Seen
[2018-02-03] MEDS: Rivaroxaban TAB(*) 15 MG PO SCH ×2 (12:21→23:56)
--- NOTE | 2018-02-03 15:39 | PN ---
Subjective Date of Service: 02/03/18 Interval History: c/o pain to right side of his chest consistent radiating to his back below his shoulder blades, c/o lower back pain as well, Denies shortness of breath. Denies abd pain n/v/d. Denies fever or chills. walking o2 saturation 100 on RA. Family History: Unchanged from Admission Social History: Unchanged from Admission Past Medical History: Unchanged from Admission Objective Active Medications: Aspirin (Aspirin 81 Mg Chew Tab*) 81 mg PO DAILY [facility] Last Admin: 02/03/18 09:55 Dose: 81 mg Atorvastatin Calcium (Lipitor*) 20 mg PO DAILY [facility] Last Admin: 02/03/18 09:55 Dose: 20 mg Famotidine (Pepcid Tab*) 20 mg PO BID [facility] Last Admin: 02/03/18 09:55 Dose: 20 mg Mometasone Furoate/Formoterol Fumar (Dulera 200/5 Mdi*) 2 puff INH BID [facility] Last Admin: 02/03/18 08:01 Dose: 2 puff Morphine Sulfate (Morphine Vial*) 4 mg IV Q4H PRN PRN Reason: PAIN Last Admin: 02/03/18 14:39 Dose: 4 mg Nebivolol (Bystolic Tab (Nf)) 10 mg PO DAILY [facility] Last Admin: 02/03/18 09:55 Dose: 10 mg Nitroglycerin (Nitroglycerin Tab 0.4 Mg*) 0.4 mg SL Q5M PRN PRN Reason: PAIN - CHEST Potassium Chloride (Klor Con Er Tab*) 20 meq PO DAILY [facility] Last Admin: 02/03/18 09:55 Dose: 20 meq Rivaroxaban (Xarelto(*)) 15 mg PO 0000,1200 [facility] Last Admin: 02/03/18 12:21 Dose: 15 mg Tramadol HCl (Ultram*) 50 mg PO Q6HR PRN PRN Reason: PAIN Triamterene/HCTZ (Dyazide Cap*) 1 cap PO DAILY [facility] Last Admin: 02/03/18 09:55 Dose: 1 cap Vital Signs - 8 hr 02/03/18 02/03/18 02/03/18 08:05 09:48 09:50 Temperature 97.7 F Pulse Rate 57 67 Respiratory 20 20 Rate Blood Pressure 126/102 141/80 (mmHg) O2 Sat by Pulse 95 100 Oximetry 02/03/18 02/03/18 02/03/18 09:55 10:47 11:10 Temperature 97.6 F Pulse Rate 57 Respiratory 18 18 18 Rate Blood Pressure 149/91 (mmHg) O2 Sat by Pulse 100 Oximetry 02/03/18 02/03/18 14:29 14:39 Temperature 97.9 F Pulse Rate 59 Respiratory 18 18 Rate Blood Pressure 120/75 (mmHg) O2 Sat by Pulse 97 Oximetry Oxygen Devices in Use Now: None Appearance: appears comfortable at rest, mild discomfort with movement. no acute distress Eyes: No Scleral Icterus Ears/Nose/Mouth/Throat: Clear Oropharnyx, Mucous Membranes Moist Neck: NL Appearance and Movements; NL JVP, Trachea Midline Respiratory: Symmetrical Chest Expansion and Respiratory Effort, Clear to Auscultation Cardiovascular: NL Sounds; No Murmurs; No JVD Abdominal: NL Sounds; No Tenderness; No Distention Extremities: No Clubbing, Cyanosis, - - lower ext with edema + 1 Skin: No Rash or Ulcers Neurological: Alert and Oriented x 3 Nutrition: Taking PO's Result Diagrams: 02/02/18 08:17 02/02/18 08:17 Assess/Plan/Problems-Billing Assessment: Mr. Glaser is a 52 y.o male with a PMhx significant for CAD with stenting, obesity, htn ,hld, and asthma that presented to the emergency room with chest pain that woke him from a sleep. Was found to have PE . - Patient Problems (1) Pulmonary embolism Current Visit: Yes Status: Acute Code(s): I26.99 - OTHER PULMONARY EMBOLISM WITHOUT ACUTE COR PULMONALE SNOMED Code(s): 63623485 Comment: - Started on Xarelto 15mg BID - Echo - shows mild decrease in LV function when compared to 10/31/15; EF today 45-50% - chest pain that radiated to back below shoulder blades, - suspect this is related to his PE - will given tramadol as needed for pain (2) CAD (coronary artery disease) Current Visit: No Status: Acute Code(s): I25.10 - ATHSCL HEART DISEASE OF [place] CORONARY ARTERY W/O ANG PCTRS SNOMED Code(s): 45083708 Comment: [place], 3 stents 2010. - continue home medications- bystolic -Echo today showed slight decreased LV function when compared to 10/31/15 echo. (3) Chest pain Current Visit: No Status: Acute Priority: Medium Onset Date: 01/31/14 Code(s): R07.9 - CHEST PAIN, UNSPECIFIED SNOMED Code(s): 44562653 Comment: Atypical chest pain, states that itis pressure that radiatd to back , constant pressure, improves with tramadol. Troponin negative Doubt cardiac etiology. Ekg without changes Spoke to Dr. Willis in regards to Chest pain and needing further work up- not recommending further work up at this time. suspect pain is likely related to his PE. (4) HTN (hypertension) Current Visit: No Status: Acute Priority: Medium Code(s): I10 - ESSENTIAL (PRIMARY) HYPERTENSION SNOMED Code(s): 48349440 Comment: Continue nebivolol. (5) Morbid obesity Current Visit: No Status: Acute Code(s): E66.01 - MORBID (SEVERE) OBESITY DUE TO EXCESS CALORIES SNOMED Code(s): 287968112 Comment: BMI 49.5. (6) Sleep apnea Current Visit: No Status: Acute Code(s): G47.30 - SLEEP APNEA, UNSPECIFIED SNOMED Code(s): 17552895 Comment: will need CPAP at night (7) Dyslipidemia Current Visit: No Status: Chronic Priority: Medium Code(s): E78.5 - HYPERLIPIDEMIA, UNSPECIFIED SNOMED Code(s): 458614188 Comment: continue statin - lipitor (8) DVT prophylaxis Current Visit: No Status: Acute Priority: Medium Code(s): DNP2496 - SNOMED Code(s): 099632931 Comment: rohan Status and Disposition: obv - poss discharge tomorrow
[2018-02-04] MEDS: Mometasone/Formoter 200/5 MDI INH SCH (07:23)
[2018-02-04] MEDS: Atorvastatin* 20 MG TAB PO SCH (09:46)
[2018-02-04] MEDS: Famotidine TAB* 20 MG PO SCH (09:46)
[2018-02-04] MEDS: Potassium Chlor TAB* 20 MEQ TAB.ER PO SCH (09:46)
[2018-02-04] MEDS: Triamterene/HCTZ 37.5-25 MG* CAP PO SCH (09:46)
[2018-02-04] MEDS: Aspirin 81 mg CHEW TAB* 81 MG TAB.CHEW PO SCH (09:47)
[2018-02-04] MEDS: NEBIVOLOL 2.5 MG PO SCH (09:52)
[2018-02-04 13:04] VITALS: BP 144/79
[2018-02-04] MEDS: Rivaroxaban TAB(*) 15 MG PO SCH (13:11)
--- NOTE | 2018-02-04 17:26 | PN ---
Subjective Date of Service: 02/04/18 Interval History: Reports that pain is improved. States that he slept well. States that pain is controlled with tramadol. Denies abd pain ,n/v/d. Denies shortness of breath. Family History: Unchanged from Admission Social History: Unchanged from Admission Past Medical History: Unchanged from Admission Objective Vital Signs - 8 hr 02/04/18 02/04/18 02/04/18 10:06 11:41 13:12 Temperature 98.0 F Pulse Rate 56 Respiratory 20 18 16 Rate Blood Pressure 144/79 (mmHg) O2 Sat by Pulse 98 Oximetry Oxygen Devices in Use Now: None Appearance: appears comfortable sitting in on the edge of the bed. Eyes: No Scleral Icterus Ears/Nose/Mouth/Throat: Clear Oropharnyx, Mucous Membranes Moist Neck: NL Appearance and Movements; NL JVP, Trachea Midline Respiratory: Symmetrical Chest Expansion and Respiratory Effort, Clear to Auscultation, - - diminshed at the bases bialt Cardiovascular: NL Sounds; No Murmurs; No JVD, No Edema Abdominal: NL Sounds; No Tenderness; No Distention Extremities: No Edema, No Clubbing, Cyanosis Skin: No Rash or Ulcers Neurological: Alert and Oriented x 3 Nutrition: Taking PO's Result Diagrams: 02/02/18 08:17 02/02/18 08:17 Assess/Plan/Problems-Billing Assessment: Mr. Glaser is a 52 y.o male with a PMhx significant for CAD with stenting, obesity, htn ,hld, and asthma that presented to the emergency room with chest pain that woke him from a sleep. Was found to have PE . - Patient Problems (1) Pulmonary embolism Status: Acute Code(s): I26.99 - OTHER PULMONARY EMBOLISM WITHOUT ACUTE COR PULMONALE SNOMED Code(s): 66742484 Comment: - Started on Xarelto 15mg BID day 2 of 20 - Echo - shows mild decrease in LV function when compared to 10/31/15; EF today 45-50% - chest pain that radiated to back below shoulder blades, - suspect this is related to his PE - will given tramadol as needed for pain (2) CAD (coronary artery disease) Status: Acute Code(s): I25.10 - ATHSCL HEART DISEASE OF [place] CORONARY ARTERY W/O ANG PCTRS SNOMED Code(s): 96571582 Comment: [place] 3 stents 2010. - continue home medications- bystolic -Echo today showed slight decreased LV function when compared to 10/31/15 echo. (3) Chest pain Status: Acute Priority: Medium Onset Date: 01/31/14 Code(s): R07.9 - CHEST PAIN, UNSPECIFIED SNOMED Code(s): 58654253 Comment: Atypical chest pain, states that itis pressure that radiatd to back , constant pressure, improves with tramadol. Troponin negative Doubt cardiac etiology. Ekg without changes Spoke to Dr. Willis in regards to Chest pain and needing further work up- not recommending further work up at this time. suspect pain is likely related to his PE. Patient is stents in 2010 on plavix and ASA at home - will decrease ASA to 81 mg and d/c plavix as per cardiology recommendations (4) HTN (hypertension) Status: Acute Priority: Medium Code(s): I10 - ESSENTIAL (PRIMARY) HYPERTENSION SNOMED Code(s): 51084004 Comment: Continue nebivolol. (5) Morbid obesity Status: Acute Code(s): E66.01 - MORBID (SEVERE) OBESITY DUE TO EXCESS CALORIES SNOMED Code(s): 641474574 Comment: BMI 49.5. (6) Sleep apnea Status: Acute Code(s): G47.30 - SLEEP APNEA, UNSPECIFIED SNOMED Code(s): 24278793 Comment: will need CPAP at night (7) Dyslipidemia Status: Chronic Priority: Medium Code(s): E78.5 - HYPERLIPIDEMIA, UNSPECIFIED SNOMED Code(s): 975339591 Comment: continue statin - lipitor (8) DVT prophylaxis Status: Acute Priority: Medium Code(s): NAO9193 - SNOMED Code(s): 550391471 Comment: xarelto Status and Disposition: discharge
--- NOTE | 2018-02-05 10:31 | DS ---
CC: Dr. Flores; Dr. Chu * DISCHARGE SUMMARY: DATE OF ADMISSION: 02/02/18 DATE OF DISCHARGE: 02/04/18 PROVIDER: Maria G Schultz NP. ATTENDING PHYSICIAN: Dr. Jhoana Luna * (dictated by Maria G Schultz NP). PRIMARY CARE PROVIDER: Dr. Carlin Chu. PRIMARY DIAGNOSES: 1. Pulmonary embolism. 2. Chest pain. SECONDARY DIAGNOSES: 1. Coronary artery disease with stenting in 2010. 2. Questionable seizure disorder. 3. Obstructive sleep apnea. 4. Morbid obesity. 5. Hyperlipidemia. 6. Hypertension. 7. Peripheral vascular disease. 8. Asthma. 9. History of Mobitz type 1 second-degree heart block. STUDIES COMPLETED WHILE IN THE HOSPITAL: The patient had a chest x-ray on 02/02. Radiologist Impression: No radiographic evidence of cardiopulmonary abnormality on a portable chest x-ray. He had a CTA of the chest and thorax. Radiologist Impression: 1. Imaging was limited by suboptimal bolusing time, but there appears to be nonobstructing filling defects in the submental branches of the left lower lobe pulmonary arteries consistent with small pulmonary emboli. 2. Chronic and degenerative changes in the thoracic spine with loss of disk height. DISCHARGE MEDICATIONS: Discontinued medications: 1. Plavix 75 mg p.o. daily. 2. Aspirin 325 mg daily. New home medications: 1. Xarelto 15 mg p.o. b.i.d. day 2 to be completed on 02/23/18 and then will need to start Xarelto 20 mg p.o. daily. 2. Tramadol 50 mg p.o. q.8 hours as needed for pain. Continued home medications: 1. Advair Diskus 250/50 one inhaled b.i.d. 2. Atorvastatin 20 mg p.o. daily. 3. Dyazide 1 cap p.o. daily. 4. Potassium chloride 20 mEq 1 tab p.o. daily. 5. Pepcid 20 mg p.o. b.i.d. 6. Nitroglycerin 0.4 mg sublingual q.5 minutes as needed for pain. 7. Bystolic 10 mg p.o. daily. HISTORY OF PRESENT ILLNESS AND HOSPITAL COURSE: Mr. Glaser is a 52-year-old gentleman with a past medical history significant for coronary artery disease with stenting in 2010; obstructive sleep apnea, on CPAP; morbid obesity; hypertension; hyperlipidemia; and asthma who presented to the emergency room with concerns of chest pain 10/10. Mr. Glaser states that he was feeling in his normal state of health yesterday and had no complaints. Mr. Glaser said he had fish fried dinner, he was feeling well, and went to bed last night. He awoke in the morning with 10/10 chest pain. He states the pain is similar to his history of chest pain except for now the pain is associated with radiation to the back. The patient feels a little bit tight, but not shortness of breath. He denies any diaphoresis or nausea. Denies any recent history of pain in his calf. He has chronic bilateral lower extremity edema. Denies any fever or any cough, any nausea or vomiting. Denies any diarrhea or abdominal pain. While in the emergency room, Mr. Glaser had lab work, which showed normal troponins. The rest of his labs were unremarkable. His BNP was 31. On chest x- ray, there was no acute process. He did have a CTA of the chest, which was of poor quality, but did show some filling defects in the segmental branches of the left lower lobe consistent with pulmonary emboli. He was not hypoxic and he was not tachycardic. Given the new findings of pulmonary embolism, we were asked to see and evaluate him for admission. The patient was monitored on telemetry throughout his hospitalization. He was started on Xarelto 15 mg b.i.d. This should be continued for 20 days. He is on day 2. This should be completed on 02/23/18. The patient had no further complaints. He had venous Dopplers of his lower extremities, which were negative. I did discuss with Cardiology during this admission about the patient' s chest pain and pulmonary embolism. At this time, I did not feel any further cardiac workup was needed and that he should follow up for an outpatient cardiac workup with his primary daytime caregiver. Mr. Glaser is stable for discharge home. Vital Signs are as follows: Blood pressure was 144/79, temperature 98.0, heart rate was 56, respirations 18, and O2 saturation 98% on room air. DISCHARGE PLAN: Mr. Glaser will be discharged back home. Activity as tolerated. He should continue on a heart-healthy low-sodium diet. 1. Pulmonary embolism. I suspect that his chest pain is related to the pulmonary embolism that he has. He should continue on Xarelto 15 mg p.o. b.i.d. for 20 days. This needs to be completed on 02/23/18. This medication was discussed fully with the patient including the risks and benefits of the medication. The patient was advised of the risk of bleeding associated with the medication and the risk of not taking the medication including more pulmonary embolism, the possibility of stroke. The patient at this time wishes to proceed with continuing on Xarelto. He understands the risk of bleeding and he was instructed not to take any ibuprofen with this medication. He verbalized understanding. 2. Chest pain. I suspect that his chest pain is related to his pulmonary embolism. He did have negative troponins throughout his hospitalization. I recommend that he follow up with his daytime caregiver for possible need for outpatient stress test, but given the event he has an acute pulmonary embolism, it was deemed the patient should not proceed with a stress test at this time during this hospitalization. 3. Coronary artery disease. The patient should continue on his home medications. His Plavix was discontinued during this hospitalization as he has been started on Xarelto. He should continue on an aspirin at 81 mg. Continue his Bystolic as previously prescribed. 4. Hypertension. He should continue on his home medications as previously prescribed. 5. Sleep apnea. He should continue wearing his CPAP at night. 6. The patient should follow up with his primary care provider in 4 to 7 days. He should follow up with Dr. Flores from Cardiology in 4 to 7 days for further management of his chest pain. The patient was instructed to return to the emergency room for any severe shortness of breath, coughing, or severe hemoptysis or severe chest pain or any other concerning symptoms. The patient verbalized understanding. The patient was also instructed to return to the emergency room for any vomiting of blood or rectal bleeding or severe abdominal pain. The patient again verbalized understanding. He was also instructed to stop his Plavix 75 mg and decrease his aspirin to 81 mg p.o. daily. This is a summarization of his hospitalization. If you need complete details, please obtain the entire medical record. TIME SPENT: Time spent on this discharge was approximately 60 minutes, greater than half that time was spent with the patient discussing discharge plans and instructions. CONDITION ON DISCHARGE: Stable. MARIA G SCHULTZ, HOME AND SCHOOL VISITOR [id number]/[facility] #: [id number] [facility]ES[facility]
== END 2018-02-04 15:24 | disposition home or self-care (01) ==
LOC: ED 07:56 → MEDTELE 12:14 → ED 12:58
PROVIDERS: ADMIT Internal Medicine; ATTEND Internal Medicine
DX: I26.99 Other pulmonary embolism without acute cor pulmonale (principal); R07.9 Chest pain, unspecified; I25.10 Atherosclerotic heart disease of native coronary artery without angina pectoris; Z95.5 Presence of coronary angioplasty implant and graft; G47.33 Obstructive sleep apnea (adult) (pediatric); E66.01 Morbid (severe) obesity due to excess calories; E78.5 Hyperlipidemia, unspecified; I73.9 Peripheral vascular disease, unspecified; J45.909 Unspecified asthma, uncomplicated; Z86.79 Personal history of other diseases of the circulatory system; I10 Essential (primary) hypertension; I25.2 Old myocardial infarction; R60.0 Localized edema; Z79.82 Long term (current) use of aspirin
CPT/HCPCS: 36415; 71045; 71275; 80053; 83735; 83880; 84443; 84484; 85025; 85610; 85730; 93306; 93970; 94640; 96374; 96375; 96376; 99284; A9270-GY; C8929; G0378; J1650; J2270; Q9967

== ENCOUNTER → 2018-03-21 10:43 | Emergency (ER) | payer MEDICARE, MEDICAID ==
[~2018-03-21 10:43] MED LIST: Iohexol 350* (CONTRAST) 500 ML MDV IV ONE; Morphine VIAL* 4 MG/ML VIAL (1 ml vial) IV ONE; Ondansetron INJ* 2 MG/ML VIAL IV ONE
[2018-03-21 12:16] LABS: ABS Basophils 0 10^3/ul (0-0.2); ABS Eosinophils 0.2 10^3/ul (0-0.6); ABS Lymphocytes 1.2 10^3/ul (1.0-4.8); ABS Monocytes 0.5 10^3/ul (0-0.8); ABS Neutrophils 2.7 10^3/ul (1.5-7.7); ABS Nucleated RBC 0 10^3/ul; Eosinophil % 3.4 % (0-6); Hematocrit 41 % (42-52); Hemoglobin 13.6 g/dl (14.0-18.0); Mean Corpuscular HGB Conc 33 g/dl (31-36); Mean Corpuscular Hemoglobin 28 pg (27-31); Mean Corpuscular Volume 84 fL (80-94); Mean Platelet Volume 7.9 um3 (7.4-10.4); Nucleated Red Blood Cells % 0.1; Platelet Count 189 10^3/ul (150-450); Red Cell Distribution Width 15 % (10.5-15); White Blood Count 4.6 10^3/ul (3.5-10.8)
[2018-03-21 12:26] LABS: INR 1.44 (0.77-1.02)
[2018-03-21 12:33] LABS: EGFR Non-African American 63.7 (>60)
--- NOTE | 2018-03-21 12:33 | ED ---
Complex/Multi-Sys Presentation - HPI Summary HPI Summary: Patient is a 52 y/o M w/ c/o lower back pain, bilateral flank pain, and taste of blood in mouth since last night. He states Sx onset while he was sitting in front on computer. Patient denies spitting/coughing up blood. Patient was seen this past January and diagnosed with left lower lobe pulmonary embolism, no DVT. He does note that he has been experiencing episodes of pain since his PE. PMHx of HTN, no diabetes. Patient is on Xarelto, first 21 days 15 mg twice a day , afterwards 20 mg once a day until PCP takes him off of this medication. He denies other Hx of blood clots, recent trauma/fall. On triage, pain is rated 10/ 10, nothing is reported to aggravate/alleviate Sx. Home medications and allergies are reviewed. - History Of Current Complaint Chief Complaint: EDBackInjuryPain Time Seen by Provider: 03/21/18 11:00 Hx Obtained From: Patient Onset/Duration: Lasting Days - onset last night, Still Present Timing: Constant, Days - onset last night, does note previous episodes Severity Currently: Severe - 10/10 Aggravating Factor(s): nothing Alleviating Factor(s): nothing Associated Signs And Symptoms: Positive: Back Pain - lower, Other - bilateral flank pain, taste of blood in mouth - Allergies/Home Medications Allergies/Adverse Reactions: Allergies Allergy/AdvReac Type Severity Reaction Status Date / Time amoxicillin [From Augmentin] Allergy Swelling Verified 03/21/18 10:50 clavulanic acid Allergy Swelling Verified 03/21/18 10:50 [From Augmentin] mushroom Allergy Rash Verified 03/21/18 10:50 Penicillins Allergy Anaphylatic Verified 03/21/18 10:50 Shock VINEGAR Allergy Intermediate Hives Uncoded 03/21/18 10:50 Home Medications: Home Medications Potassium Chlor TAB* [Klor Con ER TAB*] 20 meq PO DAILY 03/21/18 [History Confirmed 03/21/18] Rivaroxaban TAB(*) [Xarelto 20 mg] 20 mg PO DAILY 03/21/18 [History Confirmed ] Spironolactone TAB* [Aldactone TAB*] 25 mg PO DAILY 03/21/18 [History Confirmed 03/21/18] PMH/Surg Hx/FS Hx/Imm Hx Endocrine/Hematology History: Reports: Hx Anticoagulant Therapy - plavix Denies: Hx Diabetes, Hx Sickle Cell Disease, Hx Thyroid Disease Cardiovascular History: Reports: Hx Angina, Hx Cardiac Arrest, Hx Coronary Artery Disease, Hx Hypercholesterolemia, Hx Hypertension, Hx Myocardial Infarction, Other Cardiovascular Problems/Disorders - HEART DISEASE, CARDIAC EVENT MONITOR IMPLANTED Denies: Hx Congestive Heart Failure, Hx Pacemaker/ICD, Hx Valvular Heart Disease Respiratory History: Reports: Hx Asthma, Hx Sleep Apnea Denies: Hx Chronic Obstructive Pulmonary Disease (COPD) GI History: Reports: Hx Gastroesophageal Reflux Disease Denies: Hx Ulcer History: Reports: Hx Renal Disease - cysts, Other Problems/Disorders - bilat cyst on kidneys Musculoskeletal History: Reports: Hx Arthritis, Hx Back Problems, Other Musculoskeletal History - RANDEE Denies: Hx Scoliosis Sensory History: Reports: Hx Cataracts - right eye, Hx Contacts or Glasses, Hx Hearing Aid, Hx Hearing Problem Opthamlomology History: Reports: Hx Cataracts - right eye, Hx Contacts or Glasses Neurological History: Reports: Hx Seizures, Hx Transient Ischemic Attacks (TIA) Denies: Hx Dementia, Hx Headaches, Other Neuro Impairments/Disorders Psychiatric History: Reports: Hx Depression Denies: Hx Panic Disorder - Cancer History Hx Chemotherapy: No - Surgical History Surgery Procedure, Year, and Place: APR 2004 sinus [place] ;. 2007 left knee arthroscopy [place] ;. 2012 left tympanoplasty WITH STAPES IMPLANT ([employer] MAL[employer]OUS HEAD SERIAL # [id number] - PER [employer] INFORMATION SENT TO MRI ON ; IMPLANT IS STAINLESS STEEL STATES SOME DEGREE OF MAGNETISM TESTED MRI SAFE AT 1.5T ONLY - DR ANAYA APPROVED THIS INFORMATION FOR 1.5T ONLY). [place] ;. 2014 LEFT REVISION TYMPANOPLASTY/ MASTOIDECTOMY [facility] [place] ;. 2011 HEART CATH - NO STENTS ;. 2010 HEART CATH WITH cardiac stents x 4 (PROMUS DRUG-ELUTING STENT OKAY IN NORMAL MODE ONLY, MAX 720 GAUSS/CM @ 1.5T) [facility] [place] ;. REVEAL LINQ EVENT MONITOR PLACED- 12/15/15- ED CAME OVER [employer]/ [employer] MACHINE & DID A DOWNLOAD SO THAT NOTHING WOULD BE ERASED Hx Anesthesia Reactions: Yes - SEIZURE LIKE ACTIVITY; REINTUBATION AFTER LEFT EAR 2012 - Immunization History Date of Tetanus Vaccine: UTD Date of Influenza Vaccine: 03/05 Infectious Disease History: No Infectious Disease History: Denies: Hx Clostridium Difficile, Hx Hepatitis, Hx Human Immunodeficiency Virus (HIV), Hx of Known/Suspected MRSA, Hx Shingles, Hx Tuberculosis, Hx Known/ Suspected VRE, Hx Known/Suspected VRSA, History Other Infectious Disease, Traveled Outside the [place] in Last 30 Days - Family History Known Family History: Positive: Cardiac Disease, Hypertension, Diabetes - Social History Alcohol Use: None Hx Substance Use: No Substance Use Type: Reports: None Hx Tobacco Use: Yes Smoking Status (MU): Former Smoker Type: Cigarettes Length of Time of Smoking/Using Tobacco: 10-12 YRS Have You Smoked in the Last Year: No Review of Systems Positive: Other - taste of blood in mouth, no coughing/spitting up blood Positive: flank pain - bilateral Positive: Other - lower back pain All Other Systems Reviewed And Are Negative: Yes Physical Exam - Summary Physical Exam Summary: Appearance: Well appearing, no pain distress Skin: warm, dry, reflects adequate perfusion Head/face: normal Eyes: EOMI, SOLO ENT: mucous membranes moist Neck: supple, non-tender Respiratory: CTA, breath sounds present Cardiovascular: RRR, pulses symmetrical Abdomen: non-tender, soft Bowel Sounds: present Musculoskeletal: normal, strength/ROM intact, no tenderness/edema at LE bilaterally Neuro: normal, sensory motor intact, A&Ox3 Triage Information Reviewed: Yes Vital Signs On Initial Exam: Initial Vitals Temp Pulse Resp BP Pulse Ox 96.5 F 58 20 146/83 97 03/21/18 10:45 03/21/18 10:45 03/21/18 10:45 03/21/18 10:45 03/21/18 10:45 Vital Signs Reviewed: Yes Diagnostics - Vital Signs Vital Signs Temp Pulse Resp BP Pulse Ox 03/21/18 12:00 13 03/21/18 11:43 17 174/86 03/21/18 11:13 62 11 155/84 97 03/21/18 11:12 9 03/21/18 10:45 96.5 F 58 20 146/83 97 - Laboratory Lab Results: Lab Results 03/21/18 03/21/18 Range/Units 12:06 12:06 WBC 4.6 (3.5-10.8) 10^3/ul RBC 4.90 (4.00-5.40) 10^6/ul Hgb 13.6 L (14.0-18.0) g/dl Hct 41 L (42-52) % MCV 84 (80-94) fL MCH 28 (27-31) pg MCHC 33 (31-36) g/dl RDW 15 (10.5-15) % Plt Count 189 (150-450) 10^3/ul MPV 7.9 (7.4-10.4) um3 Neut % (Auto) 59.8 (38-83) % Lymph % (Auto) 26.0 (25-47) % [place] % (Auto) 10.0 H (0-7) % Eos % (Auto) 3.4 (0-6) % Baso % (Auto) 0.8 (0-2) % Absolute Neuts (auto) 2.7 (1.5-7.7) 10^3/ul Absolute Lymphs (auto) 1.2 (1.0-4.8) 10^3/ul Absolute Monos (auto) 0.5 (0-0.8) 10^3/ul Absolute Eos (auto) 0.2 (0-0.6) 10^3/ul Absolute Basos (auto) 0 (0-0.2) 10^3/ul Absolute Nucleated RBC 0 10^3/ul Nucleated RBC % 0.1 INR (Anticoag Therapy) 1.44 H (0.77-1.02) APTT 49.3 H (26.0-36.3) seconds Result Diagrams: 03/21/18 12:06 03/21/18 12:06 Lab Statement: Any lab studies that have been ordered have been reviewed, and results considered in the medical decision making process. - EKG 1137 Cardiac Rate: Bradycardia - rate of 59 BPM EKG Rhythm: Sinus Bradycardia Summary of EKG Findings: 1st degree AV block, lateral flipped T-waves, normal axis Complex Multi-Symp Course/Dx Course Of Treatment: Patient stable with back pain and feeling of blood in the mouth. No blood was evident. Pending CT given that he is on anticoagulant to evaluate for possible retroperitoneal or abdominal bleeding. - Diagnoses Provider Diagnoses: Back pain Discharge - Sign-Out/Discharge Documenting (check all that apply): Sign-Out Patient Signing out patient TO: Tiffanie Easton Receiving patient FROM: Rich Mathew - Discharge Plan Condition: Stable Disposition: HOME Patient Education Materials: Back Pain (ED) Referrals: Carlin Chu MD [Primary Care Provider] - Additional Instructions: Please follow up with your primary care physician. return if worse or any new symptoms. Take all medications as previously instructed. - Billing Disposition and Condition Condition: STABLE Disposition: Home - Attestation Statements Document Initiated by Katelynn: Yes Documenting Scribe: Daquan Laughlin Provider For Whom Katelynn is Documenting (Include Credential): Rich Mathew MD Scribe Attestation: I, Daquan Laughlin , scribed for Rich Mathew MD on 03/21/18 at 1859. Scribe Documentation Reviewed: Yes Provider Attestation: The documentation as recorded by the Daquan brown accurately reflects the service I personally performed and the decisions made by me, Rich Mathew MD
--- NOTE | 2018-03-21 12:39 | ED ---
Progress - Progress Note Progress Note: Patient signed out from Dr. Mathew pending CTA chest/abdomen/pelvis. The results are as follows: Chest: #. No definitive pulmonary arterial filling defects identified to indicate pulmonary embolism at this time. Motion artifact limits image quality of the pulmonary angiogram. #. Stigmata of probable pulmonary arterial hypertension. Abdomen/pelvis:No abdominal Pelvic pathologic process evident This report has been reviewed by the ED physician. The pt will be discharged with a diagnosis of back pain. Course/Dx - Course Course Of Treatment: Patient signed out from Dr. Mathew pending CTA chest/ abdomen/pelvis. The results are as follows: Chest: #. No definitive pulmonary arterial filling defects identified to indicate pulmonary. embolism at this time. Motion artifact limits image quality of the pulmonary angiogram. #. Stigmata of probable pulmonary arterial hypertension. Abdomen/pelvis:No abdominal Pelvic pathologic process evident. The pt will be discharged with a diagnosis of back pain and is agreeable to this plan. - Diagnoses Provider Diagnoses: Back pain Discharge - Sign-Out/Discharge Documenting (check all that apply): Patient Departure - DC - Discharge Plan Condition: Stable Disposition: HOME Patient Education Materials: Back Pain (ED) Referrals: Carlin Chu MD [Primary Care Provider] - Additional Instructions: Please follow up with your primary care physician. return if worse or any new symptoms. Take all medications as previously instructed. - Billing Disposition and Condition Condition: STABLE Disposition: Home - Attestation Statements Document Initiated by Swatiibe: Yes Documenting Scribe: Nguyễn Bassett Provider For Whom Katelynn is Documenting (Include Credential): Tiffanie Easton MD Scribe Attestation: Nguyễn Kim, scribed for Tiffanie Easton MD on 03/21/18 at 2033. Scribe Documentation Reviewed: Yes Provider Attestation: The documentation as recorded by the Nguyễn brown accurately reflects the service I personally performed and the decisions made by , Tiffanie Easton MD
[2018-03-21 12:54] VITALS: BP 144/87
[2018-03-21 13:39] LABS: Urine Appearance Cloudy; Urine Blood 2+ (Negative); Urine Color Yellow; Urine Ketones Negative (Negative); Urine Protein Negative (Negative); Urine Red Blood Cell 2+(6-10/hpf) (Absent); Urine Specific Gravity 1.016 (1.010-1.030); Urine Urobilinogen Negative (Negative); Urine White Blood Cell Trace(0-5/hpf) (Absent)
--- NOTE | 2018-03-21 13:39 | RAD ---
INDICATION: Thoracic and lumbar pain. Sensation of taste of blood. Anticoagulated. COMPARISON: No relevant prior exams available on the [facility] [place] PACS for comparison. TECHNIQUE: Multidetector CT images were obtained from the lung apices to the ischial tuberosities with 150 mL Omnipaque 350 IV contrast and oral. Pulmonary angiogram protocol the chest. Multiplanar reformation including maximum intensity projection images of the thorax. CHEST REPORT: Obese body habitus and motion artifact degrades image quality. The lungs and pleural spaces are grossly clear. Negative for pneumothorax. Negative for thoracic lymphadenopathy. Unchanged cardiomegaly. Negative for pericardial effusion. Normal diameter thoracic aorta. Negative for dissection of the aorta. Assessment of the pulmonary arteries is limited due to motion artifact. No compelling filling defects are identified within the main to segmental and subsegmental pulmonary arteries. Significant enlargement of the main and LEFT main pulmonary arteries as on the prior exam and peripheral attenuation of the pulmonary arteries strongly favoring pulmonary arterial hypertension. Negative for suspicious thoracic osseous lesions. CHEST IMPRESSION: #. No definitive pulmonary arterial filling defects identified to indicate pulmonary embolism at this time. Motion artifact limits image quality of the pulmonary angiogram. #. Stigmata of probable pulmonary arterial hypertension. ABDOMEN PELVIS REPORT: LIVER / GALLBLADDER / PANCREAS / SPLEEN: Unremarkable liver, gallbladder, pancreas, spleen. ALIMENTARY TRACT: No CT abnormality of the upper GI, small bowel, appendix visualized medial to the cecum, or colon. Negative for ascites or free air. Small fat-containing umbilical hernia without inflammatory change. MESENTERIC: Unremarkable. ADRENAL / GENITOURINARY: Normal adrenal glands. Bilateral renal cortical cysts with dominant 5 cm cyst at the upper pole of the RIGHT kidney. No suspicious focal renal lesions or hydronephrosis. Symmetric nephrograms and pyelograms. Unremarkable nondilated ureters and largely decompressed urinary bladder limiting assessment without gross abnormality. Symmetric seminal vesicles. RETROPERITONEAL: Negative for retroperitoneal hematoma. Negative for lymphadenopathy by short axis size criteria. VASCULAR: Normal diameter abdominal aorta and iliac arteries. Physiologic distention of the IVC. BONES: Negative for suspicious osseous lesions. SOFT TISSUE: Unremarkable. ABDOMEN PELVIS IMPRESSION: No abdominal pelvic pathologic process evident.
== END | disposition home or self-care (01) ==
LOC: ED 10:43
DX: M54.9 Dorsalgia, unspecified (principal); Z88.0 Allergy status to penicillin; M54.5 Low back pain; Z79.01 Long term (current) use of anticoagulants; Z87.891 Personal history of nicotine dependence
CPT/HCPCS: 36415; 71275; 74177; 80053; 81003; 81015; 83605; 83690; 84484; 85025; 85610; 85730; 86140; 87086; 93005; 96374; 96375; 99283; J2270; J2405; Q9967

== ENCOUNTER 2018-04-18 15:43 | Emergency (ER) | payer MEDICARE, MEDICAID ==
--- OUTSIDE RECORDS SUMMARY | 2018-04-18 16:04 | XMS REPORT | Continuity of Care Document ---
:1965 External Reference #:[id number] Author Name Marguerite Muller PA-C Address [address] [place] [address] Care Team Providers Name Role Phone Carlin Chu MD Care Team Information Customer Specialist Unavailable Carlin Chu MD Primary Care Physician Unavailable Payers Type Date Identification Numbers Payment Provider Subscriber Effective: Policy Number: [id number] Medicare-[facility] Gov[employer] [place] 1997 SRVS PayID: [id number] [address] [place] [address] Policy Number: [id number] Medicaid/C Casvíctor Villasenorne Group Number: [id number] Medicare Primary Group Name: [id number] PayID: [id number] [place] [address] Advance Directives Description No Information Available Problems Date Description Provider Status Onset: 02/23/2011 Acute pharyngitis Cezar Guerra MD Active Onset: 02/23/2011 Perforation of tympanic membrane Cezar Guerra MD Active Onset: 02/23/2011 Dysfunction of eustachian tube Cezar Guerra MD Active Onset: 02/23/2011 Middle ear conductive hearing loss Cezar Guerra MD Active Onset: 02/23/2011 Sensorineural hearing loss Cezar Guerra MD Active Onset: 02/23/2011 Disorder of nasal cavity Mikala Cordova NP Active Onset: 02/23/2011 Gastroesophageal reflux disease Mikala Cordova [employer] Active Onset: 02/23/2011 Extrinsic asthma without status Mikala Cordova [employer] Active asthmaticus Onset: 02/23/2011 Peptic reflux disease Mikala Cordova [employer] Active Onset: 02/23/2011 Allergic rhinitis Mikala Cordova NP Active Onset: 04/15/2018 Chronic tympanitis Marguerite Muller PA-C Active Onset: 04/15/2018 Impacted cerumen Marguerite Muller PA-C Active Family History Date Family Member(s) Problem(s) Comments Mother Non Insulin Dependent Diabetes Social History Type Date Description Comments Sex Unknown 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 Tobacco Use Start: Unknown End: Former Cigarette Smoker for 25 years Unknown Packs Daily 1 Tobacco Use Start: Unknown has never smoked cigars Tobacco Use Start: Unknown has never smoked a pipe Smokeless Tobacco has never used smokeless tobacco ETOH Use Current Alcohol Use Occasionally Recreational Drug Use denies drug use Tobacco Use Start: Unknown End: Patient is a former smoker Unknown Smoking Status Reviewed: 08/13/17 Patient is a former smoker Allergies, Adverse Reactions, Alerts Date Description Reaction Status Severity Comments 05/04/2008 Augmentin XR Active 07/23/2012 Penicillins neck, tongue swells Active 09/13/2004 NKDA Inactive Medications Medication Date Status Form Strength Qnty SIG Indications Ordering Provider Omeprazole 11/[address] 40mg 60cap 40mg po 530.81 Julio Swift /2010 s bid for 1 Strominge month for Jacobo akbar esophagiti s Advair Hfa 10/22 Active Aerosol 115/21 1unit 2 Puffs 478.19 Julio Swift /2007 s bid With Strominge Spacer Jacobo akbar Please Provide Spacer Albuterol Active Aerosol 90mcg/Dos 2unit 2 Puffs Cezar Inhalation / e s Q4H prn Eddie Guerra MD Bystolic Active 5mg qd Unknown Aspirin Active Tablets DR 81mg Unknown Triamterene/[place] Active Unknown chlorothiazide Nitroglycerin Active ?mg prn Only Kimberley, Carlin SANTIAGO Ranexa Active Tablets ER 500mg 1 po bid Unknown 12HR Atorvastatin Active Tablets 40mg 1 po qd Unknown Calcium Klor-Con M20 Active Tablets ER 20Meq Stefek,Pa john Centeno Metoprolol Active Tablets ER 50mg Unknown Succinate ER 24HR Triamterene/[place] Active Capsules 37.5-25mg Kimberley, chlorothiazide Carlin SANTIAGO Advair Diskus Active Aerosol 250-50mcg Kimberley, /0000 /Dose Carlin SANTIAGO Proair HFA Active Aerosol 108(90Bas Kimberley, /0000 e) Carlin SANTIAGO mcg/Act Atorvastatin Active Tablets 20mg Stefe[place],Pa Calcium / ul M.DSandie Clopidogrel Active Tablets 75mg Kimberley, Bisulfate Carlin SANTIAGO Xarelto Active Tablets 20mg Kimberley, Carlin SANTIAGO Famotidine Active Tablets 20mg Kimberley, Carlin SANTIAGO Ciprodex 09/05 Hx Suspension 0.3-0.1% 7.500 4 drops ml left ear Eddie Guerra, - twice a 01/07 day for days Methylprednisolon 08/13 Hx TBPK 4mg 1pack take as directed Eddie Guerra - 01/07 Mupirocin 04/26 Hx Ointment 2% 22gm apply to both Pipe Fernando nostril 01/07 twice a day Triamcinolone 05/25 Hx Cream 0.1% 15gm Apply to left ear Eddie Guerra, - twice 01/07 daily for 1 week Percocet 05/04 Hx Tablets 5-325mg 30tab 1-2 tabs s by mouth Eddie Guerra - every 4-6 04/15 hours needed for pain Levofloxacin 05/04 Hx Tablets 500mg 10tab 1 by mouth s every day Pipe Fernando MD 01/07 Ciprodex 09/11 Hx Suspension 0.3-0.1% 1Bott 4 drops to le left ears Eddie Guerra - twice a 01/07 day rebate rx bin: [id number] rxpcn: loyalty rxgrp:[id number] 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: ([id number]) id#[id number] Ofloxacin 12/17 Hx Solution 0.3% 1unit 4 drops to Julio Swift s affected Strominge - ear daily r, MWillySandie 03/12 Ciprodex 12/15 Hx Suspension 0.3-0.1% 2unit 4 drops Julio Swift s infected Strominge - ear bid r, Jacobo 03/12 rebate rxbin: [id number] rxpcn: loyalty rxgrp: [id number] 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: ([id number]) id: [id number] Oxycodone/Acetami 12/03 Hx Tablets 5-325mg 30tab 1-2 tabs Julio chacon s by mouth Strominge - every 4-6 r, M.DSandie 04/15 hours needed for pain Ciprodex 08/28 Hx Suspension 0.3-0.1% 2unit 4 drops 385.32 Julio Swift s infected Strominge - ear bid r, MCarlos 12/02 apply rebate rxbin: [id number] rxpcn: loyalty rxgrp: [id number] 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 [place] /2011 s sprays in Strominge - each r, M.DSandie 04/15 nostril times a day as needed for rhinitis Bacitracin 11/18 Hx 1Tube apply to 472.0 Julio N. Ointment /2011 rim of Strominge - nose both r, M.DSandie 12/02 sides in the am and the pm. Flovent HFA 09/17 Hx Aerosol 110mcg/Ac 1unit 2 puff bid 493.01 Julio Swift t s Tani akbar M.D. 12/02 Fluticasone Nasal 09/20 Hx 50mcg 1unit 2 sprays Cezar [place] s each side Pipe Fernando bid 04/15 Omnaris 09/19 Hx Suspension 50mcg/Act 2 sprays Julio Swift s each Tani - nostril Jacobo akbar 09/17 daily Percocet 06/30 Hx Tablets 5-325mg 30tab 1-2 tabs s by mouth Pipe Fernando every 4-6 01/07 hours needed for pain Ciprofloxacin HCL 06/30 Hx Tablets 500mg 14tab 1 tablet s twice a Pipe Fernando day for 7 Astepro Nasal 09/16 Hx 0.15% 205 1unit 2 sprays Julio Swift [place] mcg s once a day Tani akbar M.D. 04/15 Aciphex 04/[address] 20mg 30tab 1 po Daily Sandie s Tani akbar M.D. 05/24 Mucinex DM 03/10 Hx Tablets ER 60-1200 5Days 1 op qd 478.1-4 Cezar Maximum 12HR Pipe Fernando MD 09/30 Fexofenadine HCL 12/28 Hx Tabs 180mg 30tab 1qd - Take s One Tablet Pipe Fernando By Mouth 05/24 Singulair 11/21 Hx Tabs 10mg 30tab 1qd - Take 477.0 s One Tablet Pipe Fernando By Mouth 04/15 Medrol Dosepak 07/28 Hx Tablets 4mg 1Pack Take as 350.2 Directed Pipe Fernando MD 05/24 Prednisone 05/04 Hx Tablets 20mg 5Days 3 PO qd Julio Swift With Jade akbar M.D. 12/28 Augmentin 04/26 Hx Tablets 875mg 14Day 1 po bid 473.0 Julio Ernst. s with food Tani akbar M.D. 05/04 Aciphex 12/[address] 20mg 60tab 1 po bid 530.81 s Pipe Fernando MD 09/30 Fexofenadine HCL 12/03 Hx Tablets 180mg 30tab 1 po qd 477.8 Julio Ernst. zeferino akbar M.D. 12/28 Zyrtec 11/03 Hx Tablets 10mg 30tab 1 PO qd Julio Ernst. zeferino akbar M.D. 12/28 Fluticasone 04/02 Hx Suspension 50mcg/Act 1mont 2 sprays 471.8 Cezar h each Eddie Guerra, - nostril 05/04 daily /2007 Prednisone 01/31 Hx Tablets 10mg 40tab 4 Tabs PO 471.8 Cezar s Every Day Eddie Guerra - X4 D, Then 03/03 3 Tabs PO /2006 Every Day X 4D, Then 2 Tab PO Daily X4D, Then 1 Tab PO Daily X4D Nasacort Aq 04/24 Hx Suspension 55mcg/Act 1unit 2 Sprays 471.8 Cezar Intranasal [place] uation s Each Eddie Guerra, - Nostril qd 05/04 Levaquin 04/24 Hx Tablets 500mg 10tab 1 Tablet 471.8 Cezar s By Mouth ESandie Guerra, - Daily 03/03 Until Finished Nexium 10/24 Hx Unknown /2005 - 05/04 Singulair 07/11 Hx Tablets 10mg 30tab 1 PO qd 471.8 Cezar s Pipe Fernando MD 11/03 Nasacort Aq 09/13 Hx Suspension 55McG/Act 1unit 2 sprays 473.2 Cezar Intranasal [place] /2004 uation s each Eddie Guerra - nostril qd 12/02 Clopidrogel Hx Tablets 75mg Unknown /0000 - 04/15 Isosorbide Hx 60mg 1 po qd Unknown Dinitrate SA / - 04/15 Simvastatin Hx ?mg oen po qd Kimberley, Carlin SANTIAGO - 04/15 Lisinopril Hx Unknown /0000 - 12/02 Pepcid ac Ez Hx Unknown Chews Maximum / Strength - 12/02 Sertraline HCL Hx ?mg one po qd Kimberley, Carlin SANTIAGO - 04/15 Clopidogrel Hx Tablets 75mg Luis M Alcaraz Bisulfate / john M.DSandie - 04/15 Fluticasone Hx Suspension 50mcg/Act Unknown Propionate / - 04/15 Famotidine Hx Tablets 20mg Unknown / - 04/15 Immunizations CPT Code Status Date Vaccine Lot # [id number] Ordered 02/17/2015 Influenza Virus Vaccine, 3 Years Of Age And Above, Intramuscular 19570 Given Unknown Influenza Virus Vaccine, 3 Years Of Age And Above, Intramuscular Vital Signs Date Vital Result Comment 04/15/2018 10:50am Weight 347.00 lb Weight 157.399 kg Height 69 inches 5'9" Height in cm's 175.3 cm BMI (Body Mass Index) 51.2 kg/m2 01/07/2018 10:08am Weight 338.00 lb Weight 153.317 kg Height 68.50 inches 5'8.50" Height in cm's 174.0 cm BMI (Body Mass Index) 50.6 kg/m2 08/13/2017 9:06am Weight 335.00 lb Weight 151.956 kg Height 68.50 inches 5'8.50" Height in cm's 174.0 cm BMI (Body Mass Index) 50.2 kg/m2 06/06/2017 10:49am BP Systolic 159 mmHg BP Diastolic 94 mmHg Heart Rate 74 /min Respiratory Rate 17 /min Weight 335.00 lb Weight 151.956 kg Height 68.50 inches 5'8.50" Height in cm's 174.0 cm BMI (Body Mass Index) 50.2 kg/m2 08/28/2016 9:47am BP Systolic 155 mmHg BP Diastolic 88 mmHg Heart Rate 77 /min Weight 335.00 lb Weight 151.956 kg Height 68.50 inches 5'8.50" Height in cm's 174.0 cm BMI (Body Mass Index) 50.2 kg/m2 04/26/2016 2:46pm BP Systolic 165 mmHg BP Diastolic 99 mmHg Heart Rate 78 /min Respiratory Rate 16 /min Weight 335.00 lb Weight 151.956 kg Height 68.50 inches 5'8.50" Height in cm's 174.0 cm BMI (Body Mass Index) 50.2 kg/m2 12/30/2015 11:17am BP Systolic 114 mmHg BP Diastolic 89 mmHg Heart Rate 64 /min Respiratory Rate 17 /min Weight 335.00 lb Weight 151.956 kg Height 68.50 inches 5'8.50" Height in cm's 174.0 cm BMI (Body Mass Index) 50.2 kg/m2 06/02/2015 9:57am BP Systolic 107 mmHg BP Diastolic 82 mmHg Heart Rate 78 /min Respiratory Rate 17 /min Weight 335.00 lb Weight 151.956 kg Height 68.50 inches 5'8.50" Height in cm's 174.0 cm BMI (Body Mass Index) 50.2 kg/m2 05/04/2015 10:02am BP Systolic 142 mmHg BP Diastolic 105 mmHg Heart Rate 76 /min Respiratory Rate 17 /min Weight 335.00 lb Weight 151.956 kg Height 68.50 inches 5'8.50" Height in cm's 174.0 cm BMI (Body Mass Index) 50.2 kg/m2 03/24/2015 10:35am BP Systolic 134 mmHg BP Diastolic 86 mmHg Heart Rate 72 /min Respiratory Rate 17 /min Weight 335.00 lb Weight 151.956 kg Height 68.50 inches 5'8.50" Height in cm's 174.0 cm BMI (Body Mass Index) 50.2 kg/m2 03/17/2015 9:50am BP Systolic 132 mmHg BP Diastolic 92 mmHg Heart Rate 91 /min Respiratory Rate 18 /min Weight 335.00 lb Weight 151.956 kg Height 68.50 inches 5'8.50" Height in cm's 174.0 cm BMI (Body Mass Index) 50.2 kg/m2 12/31/2014 10:38am Respiratory Rate 17 /min Weight 335.00 lb Weight 151.956 kg Height 68.50 inches 5'8.50" Height in cm's 174.0 cm BMI (Body Mass Index) 50.2 kg/m2 10/28/2014 3:25pm BP Systolic 97 mmHg BP Diastolic 61 mmHg Heart Rate 78 /min Respiratory Rate 16 /min Weight 335.00 lb Weight 151.956 kg Height 68.50 inches 5'8.50" Height in cm's 174.0 cm BMI (Body Mass Index) 50.2 kg/m2 04/01/2014 9:12am BP Systolic 131 mmHg BP Diastolic 84 mmHg Heart Rate 67 /min Respiratory Rate 18 /min Weight 335.00 lb Weight 151.956 kg Height 68.50 inches 5'8.50" Height in cm's 174.0 cm BMI (Body Mass Index) 50.2 kg/m2 01/28/2014 10:15am BP Systolic 109 mmHg BP Diastolic 68 mmHg Heart Rate 68 /min Respiratory Rate 17 /min Weight 328.00 lb Weight 148.781 kg Height 68.50 inches 5'8.50" Height in cm's 174.0 cm BMI (Body Mass Index) 49.1 kg/m2 11/04/2013 9:02am BP Systolic 121 mmHg BP Diastolic 79 mmHg Heart Rate 77 /min Respiratory Rate 16 /min Weight 325.00 lb Weight 147.420 kg Height 68.50 inches 5'8.50" Height in cm's 174.0 cm BMI (Body Mass Index) 48.7 kg/m2 09/29/2013 10:13am BP Systolic 138 mmHg BP Diastolic 76 mmHg Heart Rate 73 /min Respiratory Rate 16 /min Weight 325.00 lb Weight 147.420 kg Height 68.50 inches 5'8.50" Height in cm's 174.0 cm BMI (Body Mass Index) 48.7 kg/m2 09/17/2013 9:38am BP Systolic 128 mmHg BP Diastolic 80 mmHg Heart Rate 65 /min Respiratory Rate 16 /min Weight 325.00 lb Weight 147.420 kg Height 68.50 inches 5'8.50" Height in cm's 174.0 cm BMI (Body Mass Index) 48.7 kg/m2 09/11/2013 9:28am Respiratory Rate 17 /min Weight 325.00 lb Weight 147.420 kg Height 68.50 inches 5'8.50" Height in cm's 174.0 cm BMI (Body Mass Index) 48.7 kg/m2 07/23/2013 10:01am BP Systolic 129 mmHg BP Diastolic 82 mmHg Heart Rate 87 /min Respiratory Rate 17 /min Weight 325.00 lb Weight 147.420 kg Height 68.50 inches 5'8.50" Height in cm's 174.0 cm BMI (Body Mass Index) 48.7 kg/m2 04/09/2013 10:59am BP Systolic 131 mmHg BP Diastolic 83 mmHg Heart Rate 75 /min Respiratory Rate 16 /min Weight 325.00 lb Weight 147.420 kg Height 68.50 inches 5'8.50" Height in cm's 174.0 cm BMI (Body Mass Index) 48.7 kg/m2 03/12/2013 9:31am BP Systolic 132 mmHg BP Diastolic 84 mmHg Heart Rate 61 /min Respiratory Rate 17 /min Weight 325.00 lb Weight 147.420 kg Height 68.50 inches 5'8.50" Height in cm's 174.0 cm BMI (Body Mass Index) 48.7 kg/m2 01/29/2013 9:15am BP Systolic 126 mmHg BP Diastolic 81 mmHg Heart Rate 73 /min Respiratory Rate 17 /min Weight 325.00 lb Weight 147.420 kg Height 68.50 inches 5'8.50" Height in cm's 174.0 cm BMI (Body Mass Index) 48.7 kg/m2 01/21/2013 2:36pm Weight 325.00 lb Weight 147.420 kg Height 68.50 inches 5'8.50" Height in cm's 174.0 cm BMI (Body Mass Index) 48.7 kg/m2 01/07/2013 9:05am Weight 325.00 lb Weight 147.420 kg Height 68.50 inches 5'8.50" Height in cm's 174.0 cm BMI (Body Mass Index) 48.7 kg/m2 12/17/2012 10:00am BP Systolic 108 mmHg BP Diastolic 73 mmHg Heart Rate 77 /min Respiratory Rate 16 /min Weight 325.00 lb Weight 147.420 kg Height 68.50 inches 5'8.50" Height in cm's 174.0 cm BMI (Body Mass Index) 48.7 kg/m2 12/15/2012 2:49pm BP Systolic 99 mmHg BP Diastolic 72 mmHg Heart Rate 62 /min Respiratory Rate 16 /min Weight 325.00 lb Weight 147.420 kg Height 68.50 inches 5'8.50" Height in cm's 174.0 cm BMI (Body Mass Index) 48.7 kg/m2 12/03/2012 2:04pm BP Systolic 123 mmHg BP Diastolic 88 mmHg Heart Rate 66 /min Respiratory Rate 16 /min Weight 325.94 lb Weight 147.840 kg Height 68.50 inches 5'8.50" Height in cm's 174.0 cm BMI (Body Mass Index) 48.8 kg/m2 07/23/2012 11:43am BP Systolic 122 mmHg BP Diastolic 84 mmHg Heart Rate 64 /min Respiratory Rate 16 /min Weight 305.00 lb Weight 138.348 kg Height 69.02 inches 5'9.02" Height in cm's 175.3 cm BMI (Body Mass Index) 45.0 kg/m2 03/13/2012 3:08pm Weight 288.00 lb Weight 130.637 kg Height 69.02 inches 5'9" Height in cm's 175.3 cm BMI (Body Mass Index) 42.5 kg/m2 03/04/2012 9:18am BP Systolic 150 mmHg BP Diastolic 90 mmHg Heart Rate 66 /min Respiratory Rate 20 /min Weight 208.00 lb Weight 94.349 kg Height 69 inches 5'9" Height in cm's 175.3 cm BMI (Body Mass Index) 30.7 kg/m2 02/22/2011 2:00pm BP Systolic 152 mmHg BP Diastolic 100 mmHg Heart Rate 62 /min Respiratory Rate 16 /min Weight 280.00 lb Weight 127.008 kg Height 69 inches 5'9" Height in cm's 175.3 cm BMI (Body Mass Index) 41.3 kg/m2 06/30/2010 11:16am BP Systolic 143 mmHg BP Diastolic 95 mmHg Heart Rate 75 /min Respiratory Rate 17 /min 07/28/2008 3:28pm Heart Rate 64 /min Respiratory Rate 16 /min Weight 321.00 lb Weight 145.606 kg 05/04/2008 3:08pm BP Systolic 170 mmHg Taken with LG BP cuff BP Diastolic 106 mmHg Taken with LG BP cuff Heart Rate 79 /min Respiratory Rate 18 /min 04/26/2008 9:33am BP Systolic 159 mmHg BP Diastolic 114 mmHg Heart Rate 79 /min Respiratory Rate 16 /min 03/11/2008 3:55pm BP Systolic 157 mmHg BP Diastolic 107 mmHg Heart Rate 77 /min Respiratory Rate 16 /min 02/16/2008 10:06am BP Systolic 133 mmHg BP Diastolic 100 mmHg Heart Rate 75 /min Respiratory Rate 16 /min 01/15/2008 11:44am BP Systolic 160 mmHg BP Diastolic 109 mmHg Heart Rate 74 /min Respiratory Rate 16 /min 12/04/2007 3:25pm BP Systolic 137 mmHg BP Diastolic 85 mmHg Heart Rate 75 /min Respiratory Rate 16 /min 11/04/2007 10:15am BP Systolic 139 mmHg BP Diastolic 88 mmHg Heart Rate 85 /min Respiratory Rate 12 /min 10/23/2007 3:17pm BP Systolic 138 mmHg BP Diastolic 87 mmHg Heart Rate 82 /min Respiratory Rate 16 /min 07/31/2007 9:50am BP Systolic 148 mmHg BP Diastolic 86 mmHg 07/11/2007 3:43pm BP Systolic 148 mmHg BP Diastolic 92 mmHg Heart Rate 80 /min Respiratory Rate 14 /min 12/02/2006 1:52pm BP Systolic 119 mmHg BP Diastolic 76 mmHg Heart Rate 75 /min Respiratory Rate 16 /min 04/24/2006 9:11am BP Systolic 176 mmHg BP Diastolic 73 mmHg Heart Rate 80 /min Respiratory Rate 16 /min 04/06/2005 1:10pm BP Systolic 146 mmHg BP Diastolic 82 mmHg Heart Rate 80 /min Respiratory Rate 16 /min Results Test Date Facility Test Result H/L Range Note CBC No Diff 05/04/2015 [facility] White Blood 5.2 10^3 /uL N 3.5-10.8 1 c/o [facility] [place] [address] [phone] Red Blood Count 5.43 10^6/uL High 4.0-5.4 Hemoglobin 15.1 g/dL N 14.0-18.0 Hematocrit 47 % N 42-52 Mean Corpuscular Volume 87 fL N 80-94 Mean Corpuscular Hemoglobin 28 pg N 27-31 Mean Corpuscular HGB Conc 32 g/dL N 31-36 Red Cell Distribution Width 15 % N 10.5-15 Platelet Count 232 10^3/uL N 150-450 Mean Platelet Volume 8 um3 N 7.4-10.4 Inr/Protime 05/04/2015 [facility] Inr 1.05 N 0.89- 1.11 c/o Department [place] [address] [phone] Laboratory test 05/04/2015 [facility] Partial 45.0 High 26.0-36.3 2 finding c/o Department of [place] [address] Time PTT [phone] Basic Metabolic 05/04/2015 [facility] Sodium 141 mmol/ L N 133-145 Panel c/o Department [place] [address] [phone] Potassium 3.8 mmol/L N 3.5-5.0 Chloride 106 mmol/L N 101-111 Co2 Carbon Dioxide 28 mmol/L N 22-32 Anion Gap 7 mmol/L N 2-11 Glucose 91 mg/dL N 70-100 Blood Urea Nitrogen 14 mg/dL N 6-24 Creatinine 1.15 mg/dL N 0.67-1.17 BUN/Creatinine Ratio 12.2 N 8-20 Calcium 9.9 mg/dL N 8.6-10.3 Egfr Non- 67.0 N >60 Egfr 86.2 N >60 3 Laboratory test finding 12/06/2012 [facility] Inr 0.96 0.87-0.97 4 c/o [facility] [place] [address] [phone] Activated Partial Thrombo Time 44.1 seconds High 22.18-37.18 5 Basic Metabolic 12/02/2012 [facility] Sodium 140 mmol/ L 133-145 Panel c/o Department [place] [address] [phone] Potassium 4.3 mmol/L 3.5-5.0 Chloride 104 mmol/L 101-111 Co2 Carbon Dioxide 30.0 mmol/L 22-32 Anion Gap 6.0 mmol/L 2-11 Glucose 111 mg/dL High 70-100 Blood Urea Nitrogen 14 mg/dL 6-24 Creatinine 1.30 mg/dL 0.50-1.40 BUN/Creatinine Ratio 10.8 8-20 Calcium 9.7 mg/dL 8.1-9.9 Egfr Non- 58.7 >60 Egfr 75.5 >60 6 CBC Auto 07/23/2012 [facility] White Blood 4.0 10^3/ uL Low 4.8-10.8 Diff c/o Department [place] [address] [phone] Red Blood Count 4.93 10^6/uL 4.0-5.4 Hemoglobin [...] Red Blood Cells % 0.2 Basic Metabolic 07/23/2012 [facility] Sodium 135 mmol/ L 133-145 Panel c/o Department [place] [address] [phone] Potassium 3.6 mmol/L 3.5-5.0 Chloride 102 mmol/L 101-111 Co2 Carbon Dioxide 30.0 mmol/L 22-32 Anion Gap 3.0 mmol/L 2-11 Glucose 80 mg/dL 70-100 Blood Urea Nitrogen 11 mg/dL 6-24 Creatinine 1.10 mg/dL 0.50-1.40 BUN/Creatinine Ratio 10.0 8-20 Calcium 9.0 mg/dL 8.1-9.9 Egfr Non- 71.4 >60 Egfr 91.9 >60 7 Laboratory test 04/28/2008 [facility] Troponin-I (TnI) 0.04 NG/ML 0-0.06 8 finding c/o Department [place] [address] [phone] Stat CMP 04/28/2008 [facility] Sodium 136 mmol/L 135-145 c/o Department [place] [address] [phone] Potassium 3.9 mmol/L 3.5-5.0 Chloride 104 mmol/L [...] Ast (Sgot) 31 U/L 12-42 CBC With 04/28/2008 [facility] White Blood 6.7 CUMM 4.8-10.8 Electronic Diff c/o [facility] of Laboratories Count Stat [place], [place] [id number] [phone] Red Cell Count 5.28 CUMM 4.6-6.2 Hemoglobin [...] 0-0.6 Abs Basophils 0 0-0.2 Laboratory test 04/26/2008 [facility] Culture FEW COLONIES 12 finding c/o Department of Laboratories Sensitivity OF <SEE NOTE> ILA Fragoso [address] [phone] 1 SDS 05/11 2 SDS 05/11 3 [...] <0.06 ng/ml NOT SUPPORTIVE OF DIAGNOSIS OF ME 0.06 - 0.50 ng/ml INDETERMINATE: SUGGEST SERIAL STUDIES IF CLINICALLY INDICATED. > 0.5 ng/ml CONSISTENT WITH DIAGNOSIS OF ME . 9 Anion gap measurement may be of limited value in the presence of any alkalosis, especially in a combined acid base disorder. . 10 Note change in reference range as of 01/08/08. The change was based on recommendations from the [place] [employer]. 11 Please note change in reference range effective 07 . 12 FEW COLONIES OF NORMAL RESPIRATORY MARY BETH Procedures Date Code Description Status 04/15/2018 14051 Debridement Of Mastoid Cavity, Simple Completed 08/13/2017 66379 Nasal Endoscopy, Diagnostic Completed 03/21/2016 09047 Nasal Endoscopy, Diagnostic Completed 05/11/2015 45294 Revision Mastoidectomy Resulting In Modified Radical Completed Mastoidctomy 01/28/2014 30423 Fiberoptic Laryngoscopy Completed 09/29/2013 29334 Tympanometry Completed 09/29/2013 20887 Comprehensive Audiogram Completed 03/12/2013 10164 Tympanometry Completed 03/12/2013 43007 Comprehensive Audiogram Completed 01/21/2013 41186 Binocular Microscopy Completed 12/09/2012 25569 Tympanomastoidectomy W/Ossicular Chain Completed 09/25/2012 40515 Medical Records Completed 08/28/2012 62085 Tympanometry Completed 08/28/2012 63126 Comprehensive Audiogram Completed 06/05/2012 86506 Comprehensive Audiogram Completed 06/05/2012 05723 Tympanometry Completed 03/04/2012 59820 Binocular Microscopy Completed 11/19/2011 01498 Nasal Endoscopy, Diagnostic Completed 07/06/2011 90826 Tympanometry Completed 07/06/2011 72889 Comprehensive Audiogram Completed 07/03/2011 95846 Tympanometry Completed 07/03/2011 09503 Binocular Microscopy Completed 11/03/2010 68110 Fiberoptic Laryngoscopy Completed 09/19/2010 89423 Tympanometry Completed 05/24/2010 76098 Tympanometry Completed 05/24/2010 01555 Comprehensive Audiogram Completed 11/09/2009 39637 Tympanometry Completed 04/07/2009 55593 Tympanometry Completed 03/30/2009 95737 Binocular Microscopy Completed 03/10/2009 78299 Comprehensive Audiogram Completed 03/10/2009 89051 Tympanometry Completed 04/26/2008 72934 Nasal Endoscopy, Diagnostic Completed 01/15/2008 15818 Fiberoptic Laryngoscopy Completed 01/05/2008 54752 No Show Fee Completed 11/04/2007 70082 Demonstration/Eval. Of Patient Utilization Of Completed Spacer/Nebulizer 11/04/2007 91055 Respiratory Flow Volume Loop Completed 11/04/2007 74763 Bronchospasm Evaluation Completed 07/24/2007 85798 Prick Test Completed 07/24/2007 01357 Prick Test Completed 07/11/2007 89708 Nasal Endoscopy, Diagnostic Completed 04/02/2007 02794 Nasopharyngoscopy Completed 01/31/2007 54818 Nasal Endoscopy, Diagnostic Completed 01/31/2007 34102 Comprehensive Audiogram Completed 01/31/2007 55477 Comprehensive Audiogram Completed 01/31/2007 10489 Tympanometry Completed 01/31/2007 65903 Tympanometry Completed 12/24/2006 45449 Tympanostomy W/Tube Local Or Topical Anes. Completed 12/02/2006 71525 Tympanometry Completed 12/02/2006 07085 Tympanometry Completed 12/02/2006 21843 Comprehensive Audiogram Completed 12/02/2006 24175 Comprehensive Audiogram Completed 10/26/2005 [id number] Nasal Endoscopy, Diagnostic Completed 04/06/2005 50483 Nasal Endoscopy, Diagnostic Completed 09/13/2004 24712 Nasal Endoscopy W/ Debridement Completed 05/24/2004 58283 Nasal Endoscopy W/ Debridement Completed 05/02/2004 05205 Nasal Endoscopy W/Maxllary Antrostomy W/Excision Of Poylp Completed 05/02/2004 09520 Nasal Endoscopy With Ethmoidectomy, Partial Completed 04/28/2004 47820 Nasal Endoscopy, Diagnostic Completed 03/27/2004 58531 Nasal Endoscopy, Diagnostic Completed 03/01/2004 07885 Nasal Endoscopy, Diagnostic Completed 07/01/2003 90625 No Show Fee Completed Encounters Type Date Location Provider Dx Diagnosis Office Visit 01/07/2018 [place] Cezar Carpio1.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 of 10:30a 05/20/07 MD bryce Guerraum, left ear J31.0 Chronic rhinitis G50.1 Atypical facial pain Office Visit 10/04/2017 [place] Cezar Morgan H71.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 of 10:00a 05/20/07 MD Mari tympanum, left ear Office Visit 06/06/2017 [place] Cezar Morgan H71.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 of 11:15a 05/20/07 MD bryce Guerraum, left ear Office Visit 02/15/2017 [place] Cezar Morgan H71.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 of 11:00a 05/20/07 MD Mari tympanum, left ear H72.2x1 Other marginal perforations of tympanic membrane, right ear Office Visit 08/28/2016 [place],[facility] Cezar Morgan H71.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 of 10:30a 05/20/07 MD Mari tympanum, left ear Office Visit 04/26/2016 [place] Cezar Morgan J31.0 Chronic rhinitis 2:45p 05/20/07 MD Mari 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, left ear Office Visit 12/30/2015 [place] Cezar Morgan H71.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 of 11:00a 05/20/07 MD bryce Guerraum, left ear H60.11 Cellulitis of right external ear Office Visit 09/29/2015 [place] Cezar Morgan H71.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 of 11:00a 05/20/07 MD bryce Guerraum, left ear Office Visit 05/25/2015 [place] Cezar Morgan L23.3 Allergic contact 3:45p 05/20/07 MD Mari dermatitis due to drugs in contact w skin Office Visit 03/24/2015 [place] Cezar Morgan H71.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 05/20/07 MD Mari tympanum, left ear Office Visit 03/17/2015 [place] Cezar Morgan H71.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 of 10:30a 05/20/07 MD Mari tympanum, left ear Office Visit 03/03/2015 [place] Cezar Morgan 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, 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, left ear Office Visit 12/31/2014 10:15a [place],After 05/20/07 Cezar Morgan 381.29 Otitis Media MD Mari Chronic Media Other 385.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 Office Visit 10/28/2014 3:45p [place],After 05/20/07 Cezar Morgan 381.29 Otitis Media MD Mari Chronic Media Other 385.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 Office Visit 04/01/2014 9:45a [place],After 05/20/07 Cezar Morgan 381.29 Sonal Media MD Mari Chronic Media Other Office Visit 01/28/2014 10:45a [place],[facility] 05/20/07 Cezar Morgan 381.29 Otitis Media MD Mari Chronic Media Other 787.20 Dysphagia, Unspecified Office Visit 11/04/2013 10:15a [place],After 05/20/07 Cezar Guerra MD 786.2 Cough 787.20 Dysphagia, Unspecified 493.00 Asthma, Extrinsic/Atopic Office 09/29/2013 [place],After Cezar Morgan 389.03 Hearing Loss, Visit 10:00a 05/20/07 MD Mari Conductive/Middle Ear 389.10 Hearing Loss, Sensorineural/Unspecified 462-2 Sore Throat Office Visit 09/17/2013 10:30a [place],After 05/20/07 Cezar Morgan 380.10 Otitis Externa MD Mari Acute 389.03 Hearing Loss, Conductive/Middle Ear Office Visit 09/11/2013 10:30a [place],After 05/20/07 Cezar Morgan 380.10 Otitis Externa MD Mari Acute 381.29 Otitis Media Chronic Media Other Office Visit 07/23/2013 [place],After Cezar Morgan 385.32 Cholesteatoma Of 9:45a 05/20/07 MD Mari Middle Ear Office Visit 04/09/2013 [place]After Cezar Morgan 472.0 Rhinitis, Chronic 11:00a 05/20/07 MD Mari 385.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 Office Visit 03/12/2013 [place],After Cezar Morgan 385.32 Cholesteatoma Of 10:30a 05/20/07 MD Mari Middle Ear 389.03 Hearing Loss, Conductive/Middle Ear 389.10 Hearing Loss, Sensorineural/Unspecified 477.8 Rhinitis, Perennial, Allergy Office Visit 01/21/2013 [place],After Rosa Cordova.32 Cholesteatoma Of 4:00p 05/20/07 Mikala [employer] Middle Ear 381.29 Otitis Media Chronic Media Other Office Visit 12/03/2012 [place],After Cezar Morgan 385.32 Cholesteatoma Of 1:45p 05/20/07 MD Mari Middle Ear 381.29 Otitis Media Chronic Media Other 389.03 Hearing Loss, Conductive/Middle Ear Office Visit 08/28/2012 [place],After Dmitry Cordova32 Cholesteatoma Of 2:15p 05/20/07 Mikala [employer] Middle Ear 381.29 Otitis Media Chronic Media Other Office Visit 06/05/2012 [place],After Cezar Morgan 385.32 Cholesteatoma Of 1:30p 05/20/07 MD Mari Middle Ear 381.29 Otitis Media Chronic Media Other 389.03 Hearing Loss, Conductive/Middle Ear 389.10 Hearing Loss, Sensorineural/Unspecified Office Visit 05/21/2012 [place],After Cezar Morgan 385.32 Cholesteatoma Of 11:30a 05/20/07 MD Mari Middle Ear Office Visit 05/07/2012 [place],After Cezar Morgan 381.29 Otitis Media 11:15a 05/20/07 MD Mari Chronic Media Other Office Visit 03/13/2012 [place],After Cezar Morgan 381.29 Otitis Media 3:15p 05/20/07 MD Mari Chronic Media Other Office Visit 03/04/2012 [place],After Art 381.3 Otitis Media, 9:30a 05/20/07 Mikala [employer] Chronic Allergic/Unspecifi ed Office Visit 11/19/2011 [place],After Art, 350.2 Facial Pain, 2:45p 05/20/07 Miklaa [employer] Atypical 472.0 Rhinitis, Chronic Office Visit 09/18/2011 3:30p [place],After 05/20/07 Art, 477.8 Rhinitis , Mikala [employer] Perennial, Allergy 493.01 Asthma Extrinsic W/ Status Asthmaticus Office 09/05/2011 [place],After Cezar Morgan 389.03 Hearing Loss, Visit 11:15a 05/20/07 MD Mari Conductive/Middle Ear 389.10 Hearing Loss, Sensorineural/Unspecified 384.82 Tympanic Membrane, Atrophic Nonflaccid Office Visit 07/03/2011 4:00p [place],After Art 384.82 Tympanic 05/20/07 Mikala [employer] Membrane, Atrophic Nonflaccid Office Visit 02/22/2011 1:45p [place],After Cezar Morgan 462 Pharyngitis, 05/20/07 MD Mari Acute 384.20 Perforation Of Tympanic Membrane/Unspecified 381.81 Dysfunction Of Eustachian Tube 389.03 Hearing Loss, Conductive/Middle Ear 389.10 Hearing Loss, Sensorineural/Unspecified Office Visit 11/03/2010 9:30a [place],After Art, 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 Mikala [employer] Sinus/Perf Nasal Septum 530.81 Reflux, Gastroesophageal 493.00 Asthma, Extrinsic/Atopic 530.11 Reflux, Esophagitis Office 10/10/2010 [place],After Art, 384.20 Perforation Of Tympanic Visit 2:00p 05/20/07 Mikala [employer] Membrane/Unspecified 477.8 Rhinitis, Perennial, Allergy 493.00 Asthma, Extrinsic/Atopic Office 09/19/2010 [place],After Art, 384.20 Perforation Of Tympanic Visit 1:30p 05/20/07 Mikala [employer] Membrane/Unspecified 381.81 Dysfunction Of Eustachian Tube Office 05/24/2010 [place],After Cezar Morgan 389.03 Hearing Loss, Visit 2:00p 05/20/07 MD Mari Conductive/Middle Ear 389.10 Hearing Loss, Sensorineural/Unspecified 381.81 Dysfunction Of Eustachian Tube 384.20 Perforation Of Tympanic Membrane/Unspecified Office 11/09/2009 [place],After Art 384.20 Perforation Of Tympanic Visit 11:30a 05/20/07 Mikala [employer] Membrane/Unspecified 381.81 Dysfunction Of Eustachian Tube 350.2 Facial Pain, Atypical Office Visit 10/19/2009 1:30p [place],After 05/20/07 Cezar Morgan 477.8 RhinitisMari MD Perennial, Allergy 384.20 Perforation Of Tympanic Membrane/Unspecified 381.81 Dysfunction Of Eustachian Tube Office Visit 09/30/2009 10:00a [place],After 05/20/07 Cezar Morgan 477.8 RhinitisMari MD Perennial, Allergy 493.00 Asthma, Extrinsic/Atopic 384.20 Perforation Of Tympanic Membrane/Unspecified 389.03 Hearing Loss, Conductive/Middle Ear Office 04/07/2009 [place],After Cezar Morgan 384.20 Perforation Of Tympanic Visit 3:45p 05/20/07 MD Mari Membrane/Unspecified 388.71 Otalgia Otogenic Pain 381.81 Dysfunction Of Eustachian Tube Office 03/30/2009 [place],After Cezar Morgan 384.20 Perforation Of Tympanic Visit 2:30p 05/20/07 MD Mari Membrane/Unspecified 388.71 Otalgia Otogenic Pain Office Visit 03/10/2009 1:45p [place],After Cezar Morgan 388.31 Tinnitus, 05/20/07 MD Mari Subjective 478.1-4 Obstruction Of Nasal Airway Office Visit 12/28/2008 4:00p [place],After Cezar Morgan 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 MD Mari Sinus/Perf Nasal Septum 478.1-4 Obstruction Of Nasal Airway 477.8 Rhinitis, Perennial, Allergy 493.00 Asthma, Extrinsic/Atopic Office Visit 07/28/2008 3:15p [place],After 05/20/07 Cezar Morgan 350.2 Facial Pain, MD Mari Atypical 473.0 Sinusitis, Chronic Maxillary 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, Chronic Ethmoidal 471.8 Polyps, Nasal/Sinus Office Visit 05/04/2008 [place],After Julio Swift 493.01 Asthma Extrinsic 2:45p 05/20/07 Jacobo Arreola W/ Status Asthmaticus 530.81 Reflux, Gastroesophageal 780.57 Apnea, Sleep Not Elsewhere Classified /Unspecified 278.01 Obesity Morbid 429.3 Cardiomegaly Office 04/28/2008 [place],After Julio Swift 493.00 Asthma, Visit 1:48p 05/20/07 Reji Arreola/Atopic Jacobo Office 04/26/2008 [place],After Art, 473.0 Sinusitis, Chronic Visit 9:30a 05/20/07 Mikala [employer] Maxillary 530.81 Reflux, Gastroesophageal Office Visit 03/11/2008 [place],After Cezar Morgan 780.57 Apnea, Sleep Not 4:00p 05/20/07 MD Mari Elsewhere Classified /Unspecified 381.81 Dysfunction Of Eustachian Tube 389.03 Hearing Loss, Conductive/Middle Ear Office Visit 02/16/2008 [place],After Cezar Morgan 780.57 Apnea, Sleep Not 10:15a 05/20/07 MD Mari Elsewhere Classified /Unspecified 530.11 Reflux, Esophagitis Office Visit 12/04/2007 [place],After Art 530.81 Reflux, 3:30p 05/20/07 Mikala [employer] Gastroesophageal 477.8 Rhinitis, Perennial, Allergy 493.90 Asthma, Allergic/Unspecified Office Visit 11/04/2007 10:15a [place],After Art, 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 Mikala [employer] Sinus/Perf Nasal Septum 478.1-4 Obstruction Of Nasal Airway 477.8 Rhinitis, Perennial, Allergy Office Visit 10/23/2007 [place],After Art, 478.1-4 Obstruction Of 3:00p 05/20/07 Mikala [employer] Nasal Airway 381.3 Otitis Media, Chronic Allergic/Unspecified 493.00 Asthma, Extrinsic/Atopic 477.0 Rhinitis, Seasonal -Allergic Due To Pollen 477.8 Rhinitis, Perennial, Allergy Office Visit 07/31/2007 10:00a [place],After 05/20/07 Art 477.8 Rhinitis , Mikala [employer] Perennial, Allergy 477.0 Rhinitis, Seasonal -Allergic Due To Pollen Office Visit 07/11/2007 3:30p [place],After 05/20/07 Cezar Morgan 477.8 RhinitisMari MD Perennial, Allergy 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 478.1-4 Obstruction Of Nasal Airway Office Visit 05/15/2007 9:00a [place],After 05/20/07 Cezar Morgan 477.8 RhinitisMari MD Perennial, Allergy Office Visit 04/02/2007 2:15p [place],After 05/20/07 Cezar Morgan 477.8 RhinitisMari MD Perennial, Allergy 471.8 Polyps, Nasal/Sinus 389.2 Hearing Loss, Mixed/Conductive & Sensorineural 381.81 Dysfunction Of Eustachian Tube 474.12 Hypertrophy, Adenoids Office Visit 03/03/2007 2:45p [place],After 05/20/07 Cezar Morgan 473.0 SinusitisMari MD Chronic Maxillary 474.12 Hypertrophy, Adenoids 381.81 Dysfunction Of Eustachian Tube Office Visit 01/31/2007 [place],After Cezar Morgan 381.81 Dysfunction Of 3:15p 05/20/07 MD Mari Eustachian Tube 389.2 Hearing Loss, Mixed/Conductive & Sensorineural 471.8 Polyps, Nasal/Sinus 474.12 Hypertrophy, Adenoids Office Visit 12/02/2006 [place],After Cezar Morgan 381.81 Dysfunction Of 2:30p 05/20/07 MD Mari Eustachian Tube 389.2 Hearing Loss, Mixed/Conductive & Sensorineural Office Visit 04/24/2006 9:45a [place],After Cezar Morgan 471.8 Polyps, 05/20/07 MD Mari Nasal/Sinus 473.0 Sinusitis, Chronic Maxillary 461.0 Sinusitis, Acute Maxillary Office Visit 07/11/2005 1:30p [place],After Cezar Morgan 471.8 Polyps, 05/20/07 MD Mari Nasal/Sinus 780.57 Apnea, Sleep Not Elsewhere Classified /Unspecified 493.0 Code Needs 5TH Digit Office Visit 04/06/2005 1:30p [place],After 05/20/07 Cezar Morgan 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Mari MD Chronic Ethmoidal 471.8 Polyps, Nasal/Sinus 389.03 Hearing Loss, Conductive/Middle Ear Office Visit 05/09/2004 [place],After Julio Swift 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, 9:30a 05/20/07 Jacobo Arreola Chronic Ethmoidal 471.8 Polyps, Nasal/Sinus Office Visit 02/04/2004 [place],After Dank Rose 780.57 Apnea, Sleep Not 9:45a 05/20/07 Jacobo Pat Elsewhere Classified /Unspecified Office Visit 05/28/2003 [place],After Dank Rose 478.1 Ulcer Of Nasal 11:15a 05/20/07 Jacobo Pat Septum Plan of Treatment Future Appointment(s):05/01/2018 11:30 am - Cezar Guerra MD at [place], After 05/20/810 - LUIS M Fuentes-C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, left earH61.23 Impacted cerumen, dzapqjvdhE62.12 Chronic myringitis, left earNew Medication: -
--- NOTE | 2018-04-18 21:15 | ED ---
Lower Extremity - HPI Summary HPI Summary: Patient is a 52 y/o M w/ c/o chest pain, back pain, and right leg pain. PMHx of PE is reported. Patient was seen at [facility] in january for PE. He was seen at for similar Sx, CTA chest/pelvis/abdomen was done and determined to be negative. However, when asked about this visit, he denies any memory of this visit. Patient states that he did not have chest pain yesterday, reports that it onset this morning. He states that the combination of back pain, chest pain, and right leg pain prompted today's ED visit. N/V denied, SOB is endorsed but he states he is not more SOB at present compared to yesterday. He notes bump on right leg, patient believes that he has not been bitten by an insect recently. An open area is noted at this leg as well, patient reports that he bumped his leg against a coffee table some time ago. Patient is on Xarelto, patient states that he has been taking his medications daily. Patient has cotton in left ear, reports he had surgery at this ear recently, notes he cannot ear from this ear without hearing aid. Patient lives alone, took bus here. On triage, pain is rated 10/10, nothing is noted to alleviate Sx, palpation is reported to aggravate Sx. Home medications and allergies are reviewed. - History of Current Complaint Chief Complaint: EDExtremityLower Stated Complaint: CHEST/BACK/RT LEG PAIN Time Seen by Provider: 04/18/18 21:01 Pain Intensity: 10 - Allergies/Home Medications Allergies/Adverse Reactions: Allergies Allergy/AdvReac Type Severity Reaction Status Date / Time amoxicillin [From Augmentin] Allergy Swelling Verified 03/21/18 10:50 clavulanic acid Allergy Swelling Verified 03/21/18 10:50 [From Augmentin] mushroom Allergy Rash Verified 03/21/18 10:50 Penicillins Allergy Anaphylatic Verified 03/21/18 10:50 Shock VINEGAR Allergy Intermediate Hives Uncoded 03/21/18 10:50 PMH/Surg Hx/FS Hx/Imm Hx Endocrine/Hematology History: Reports: Hx Anticoagulant Therapy - plavix Denies: Hx Diabetes, Hx Sickle Cell Disease, Hx Thyroid Disease Cardiovascular History: Reports: Hx Angina, Hx Cardiac Arrest, Hx Coronary Artery Disease, Hx Hypercholesterolemia, Hx Hypertension, Hx Myocardial Infarction, Other Cardiovascular Problems/Disorders - HEART DISEASE, CARDIAC EVENT MONITOR IMPLANTED Denies: Hx Congestive Heart Failure, Hx Pacemaker/ICD, Hx Valvular Heart Disease Respiratory History: Reports: Hx Asthma, Hx Sleep Apnea Denies: Hx Chronic Obstructive Pulmonary Disease (COPD) GI History: Reports: Hx Gastroesophageal Reflux Disease Denies: Hx Ulcer History: Reports: Hx Renal Disease - cysts, Other Problems/Disorders - bilat cyst on kidneys Musculoskeletal History: Reports: Hx Arthritis, Hx Back Problems, Other Musculoskeletal History - RANDEE Denies: Hx Scoliosis Sensory History: Reports: Hx Cataracts - right eye, Hx Contacts or Glasses, Hx Hearing Aid, Hx Hearing Problem Opthamlomology History: Reports: Hx Cataracts - right eye, Hx Contacts or Glasses Neurological History: Reports: Hx Seizures, Hx Transient Ischemic Attacks (TIA) Denies: Hx Dementia, Hx Headaches, Other Neuro Impairments/Disorders Psychiatric History: Reports: Hx Depression Denies: Hx Panic Disorder - Cancer History Hx Chemotherapy: No - Surgical History Surgery Procedure, Year, and Place[place] [facility] [place] [facility] [place]. [place] left tympanoplasty WITH STAPES IMPLANT ([employer] MALLEOUS HEAD SERIAL # [id number] - PER [employer] INFORMATION SENT TO MRI ON ; IMPLANT IS STAINLESS STEEL STATES SOME DEGREE OF MAGNETISM TESTED MRI SAFE AT 1.5T ONLY - DR ANAYA APPROVED THIS INFORMATION FOR 1.5T ONLY). [facility] [place]. [place]VISION TYMPANOPLASTY/ MASTOIDECTOMY [facility] [place] ;. 2011 HEART CATH - NO STENTS ;. 2010 HEART CATH WITH cardiac stents x 4 ([employer]US DRUG-ELUTING STENT OKAY IN NORMAL MODE ONLY, MAX 720 GAUSS/CM @ 1.5T) [facility] [place] ;. REVEAL LINQ EVENT MONITOR PLACED- 12/15/15- ED CAME OVER [employer]/ [employer] MACHINE & DID A DOWNLOAD SO THAT NOTHING WOULD BE ERASED Hx Anesthesia Reactions: Yes - SEIZURE LIKE ACTIVITY; REINTUBATION AFTER LEFT EAR 2012 - Immunization History Date of Tetanus Vaccine: UTD Date of Influenza Vaccine: 03/05 Infectious Disease History: No Infectious Disease History: Denies: Hx Clostridium Difficile, Hx Hepatitis, Hx Human Immunodeficiency Virus (HIV), Hx of Known/Suspected MRSA, Hx Shingles, Hx Tuberculosis, Hx Known/ Suspected VRE, Hx Known/Suspected VRSA, History Other Infectious Disease, Traveled Outside the [place] in Last 30 Days - Family History Known Family History: Positive: Cardiac Disease, Hypertension, Diabetes - Social History Alcohol Use: None Hx Substance Use: No Substance Use Type: Reports: None Hx Tobacco Use: Yes Smoking Status (MU): Former Smoker Type: Cigarettes Length of Time of Smoking/Using Tobacco: 10-12 YRS Have You Smoked in the Last Year: No Physical Exam - Summary Physical Exam Summary: Appearance: Well-appearing, moderate pain distress, obese Skin: Warm, color reflects adequate perfusion, dry; discretely tender 1 cm raised lesion on the right medial upper calf, 1 cm open abrasion that is dry and at the right mid medial calf; darkened skin bilaterally from ankles to upper calves Head: Normal Head/Face inspection, atraumatic Eyes: Conjunctiva clear ENT: Normal inspection Neck: Supple, no nodes, no JVD Respiratory: decreased breath sounds throughout, no respiratory distress Cardio: RRR, No murmur, pulses normal, brisk capillary refill Abdomen: Soft, nontender Bowel sounds: Present Musculoskeletal: Strength Intact/ROM intact, no deep calf tenderness, no edema. Tender lesion as above. Psychological: Normal Neuro: Alert, muscle tone normal, no focal deficit Triage Information Reviewed: Yes Vital Signs On Initial Exam: Initial Vitals Temp Pulse Resp BP Pulse Ox 96.6 F 74 18 168/102 97 04/18/18 15:49 04/18/18 15:49 04/18/18 15:49 04/18/18 15:49 04/18/18 15:49 Vital Signs Reviewed: Yes Diagnostics - Vital Signs Vital Signs Temp Pulse Resp BP Pulse Ox 04/18/18 20:12 97.5 F 68 20 182/100 99 04/18/18 18:34 99.2 F 62 18 187/117 100 04/18/18 15:49 96.6 F 74 18 168/102 97 - Laboratory Lab Statement: Any lab studies that have been ordered have been reviewed, and results considered in the medical decision making process. Lower Extremity Course/Dx - Course Course Of Treatment: ASA not given due to patient being on Xeralto. Discharge - Discharge Plan Referrals: Carlin Chu MD [Primary Care Provider] - - Attestation Statements Document Initiated by Scribe: Yes
[2018-04-18] MEDS ORDERED: HYDROmorphone INJ1* 1 MG/ML SYRINGE IV SLOW PU ONE (21:22)
--- NOTE | 2018-04-18 22:04 | ED ---
Complex/Multi-Sys Presentation - HPI Summary HPI Summary: Patient is a 52 y/o M w/ c/o chest pain, back pain, and right leg pain. PMHx of PE is reported and pt is on xarelto. Patient was seen at [facility] in January 2018 for PE. He was seen on 03/21 for similar Sx, CTA chest/pelvis/abdomen was done and determined to be negative. However, when asked about this visit, he denies any memory of this visit. Patient states that he did not have chest pain yesterday, reports that it onset this morning. Patient rates chest pain and right leg pain 10/10 in the room. Patient reports chest pain is located at mid right-side, radiates to back. Back pain is reported to be located at mid upper region. Patient reports that he does not take pain medication daily, notes he cannot take ibuprofen due to Xarelto, patient states that he has been taking his medications daily. He states that the combination of back pain, chest pain, and right leg pain prompted today's ED visit. N/V denied, SOB is endorsed but he states he is not more SOB at present compared to yesterday. He notes bump on right leg, patient believes that he has not been bitten by an insect recently. An open area is noted at this leg as well, patient reports that he bumped his leg against a coffee table some time ago. Patient has cotton in left ear, reports he had surgery at this ear recently, notes he cannot hear from this ear without hearing aid. Patient lives alone, took bus here. On triage, pain is rated 10/10, nothing is noted to alleviate Sx, palpation is reported to aggravate Sx. Home medications and allergies are reviewed. In room, pulse 60, BP 170/97, o2 98. Allergies Allergy/AdvReac Type Severity Reaction Status Date / Time amoxicillin [From Augmentin] Allergy Swelling Verified 03/21/18 10:50 clavulanic acid Allergy Swelling Verified 03/21/18 10:50 [From Augmentin] mushroom Allergy Rash Verified 03/21/18 10:50 Penicillins Allergy Anaphylatic Verified 03/21/18 10:50 Shock VINEGAR Allergy Intermediate Hives Uncoded 03/21/18 10:50 - History Of Current Complaint Chief Complaint: EDExtremityLower Time Seen by Provider: 04/18/18 21:01 Hx Obtained From: Patient, Medical Records Onset/Duration: Lasting Hours - chest pain reported to onset this morning, Still Present Timing: Constant Severity Currently: Severe - 02/26 Severity Initially: Moderate Location: Pain At: - right mid chest, mid upper back, right leg Character: Dull Aggravating Factor(s): palpation Alleviating Factor(s): nothing Associated Signs And Symptoms: Positive: SOB, Chest Pain, Back Pain, Anticoagulation Therapy - xarelto, Other - POSITIVE - RIGHT LEG PAIN, BUMP AT RIGHT LEG, OPEN ABRASION AT RIGHT LEG. Negative: Nausea, Vomiting - Allergies/Home Medications Allergies/Adverse Reactions: Allergies Allergy/AdvReac Type Severity Reaction Status Date / Time amoxicillin [From Augmentin] Allergy Swelling Verified 03/21/18 10:50 clavulanic acid Allergy Swelling Verified 03/21/18 10:50 [From Augmentin] mushroom Allergy Rash Verified 03/21/18 10:50 Penicillins Allergy Anaphylatic Verified 03/21/18 10:50 Shock VINEGAR Allergy Intermediate Hives Uncoded 03/21/18 10:50 PMH/Surg Hx/FS Hx/Imm Hx Previously Healthy: No Endocrine/Hematology History: Reports: Hx Anticoagulant Therapy - xarelto Denies: Hx Diabetes, Hx Sickle Cell Disease, Hx Thyroid Disease Cardiovascular History: Reports: Hx Angina, Hx Cardiac Arrest, Hx Coronary Artery Disease, Hx Hypercholesterolemia, Hx Hypertension, Hx Myocardial Infarction Denies: Hx Congestive Heart Failure, Hx Pacemaker/ICD, Hx Valvular Heart Disease Respiratory History: Reports: Hx Asthma, Hx Sleep Apnea Denies: Hx Chronic Obstructive Pulmonary Disease (COPD) GI History: Reports: Hx Gastroesophageal Reflux Disease Denies: Hx Ulcer History: Reports: Hx Renal Disease - cysts bilateral kidneys Musculoskeletal History: Reports: Hx Arthritis, Hx Back Problems Denies: Hx Scoliosis Sensory History: Reports: Hx Cataracts - right eye, Hx Contacts or Glasses, Hx Hearing Aid, Hx Hearing Problem Opthamlomology History: Reports: Hx Cataracts - right eye, Hx Contacts or Glasses Neurological History: Reports: Hx Seizures, Hx Transient Ischemic Attacks (TIA) Denies: Hx Dementia, Hx Headaches, Other Neuro Impairments/Disorders Psychiatric History: Reports: Hx Depression Denies: Hx Panic Disorder - Cancer History Hx Chemotherapy: No - Surgical History Surgery Procedure, Year, and Place: APR 2004 sinus [facility] ;. 2007 left knee arthroscopy [facility] ;. 2012 left tympanoplasty WITH STAPES IMPLANT ([employer] MALLEOUS HEAD SERIAL # [id number] - PER [employer] INFORMATION SENT TO MRI ON ; IMPLANT IS STAINLESS STEEL STATES SOME DEGREE OF MAGNETISM TESTED MRI SAFE AT 1.5T ONLY - DR ANAYA APPROVED THIS INFORMATION FOR 1.5T ONLY). [facility] ;. 2014 LEFT REVISION TYMPANOPLASTY/ MASTOIDECTOMY [facility] ;. 2011 HEART CATH - NO STENTS ;. 2010 HEART CATH WITH cardiac stents x 4 (PROMUS DRUG-ELUTING STENT OKAY IN NORMAL MODE ONLY, MAX 720 GAUSS/CM @ 1.5T) [facility] ;. REVEAL LINQ EVENT MONITOR PLACED- 12/15/15- ED CAME OVER W/ [employer] MACHINE & DID A DOWNLOAD SO THAT NOTHING WOULD BE ERASED Hx Anesthesia Reactions: Yes - SEIZURE LIKE ACTIVITY; REINTUBATION AFTER LEFT EAR 2012 - Immunization History Date of Tetanus Vaccine: UTD Date of Influenza Vaccine: 03/05 Infectious Disease History: No Infectious Disease History: Denies: Hx Clostridium Difficile, Hx Hepatitis, Hx Human Immunodeficiency Virus (HIV), Hx of Known/Suspected MRSA, Hx Shingles, Hx Tuberculosis, Hx Known/ Suspected VRE, Hx Known/Suspected VRSA, History Other Infectious Disease, Traveled Outside the [place] in Last 30 Days - Family History Known Family History: Positive: Cardiac Disease, Hypertension, Diabetes - Social History Lives: Alone Alcohol Use: None Hx Substance Use: No Substance Use Type: Reports: None Hx Tobacco Use: Yes Smoking Status (MU): Former Smoker Type: Cigarettes Length of Time of Smoking/Using Tobacco: 10-12 YRS Have You Smoked in the Last Year: No Review of Systems Constitutional: Negative Positive: Chest Pain Positive: Shortness Of Breath Negative: Vomiting, Nausea Positive: no symptoms reported Positive: Other - POSITIVE - BACK PAIN, RIGHT LEG PAIN Positive: Other - POSITIVE - BUMP AT RIGHT LEG, OPEN ABRASION AT RIGHT LEG Neurological: Negative Psychological: Normal All Other Systems Reviewed And Are Negative: Yes Physical Exam - Summary Physical Exam Summary: Appearance: Well-appearing, moderate pain distress, obese Skin: Warm, color reflects adequate perfusion, dry; there is a 1 cm raised discretely tender lesion at right upper medial calf; there is a dry superficial abrasion of 1 cm at right mid medial calf. Darkened skin bilaterally from ankles to calves. Head: Normal Head/Face inspection, atraumatic Eyes: Conjunctiva clear ENT: Normal inspection Neck: Supple, no nodes, no JVD Respiratory: decreased breath sounds throughout, no respiratory distress Cardio: RRR, No murmur, pulses normal, brisk capillary refill Abdomen: Soft, nontender Bowel sounds: Present Musculoskeletal: Strength Intact/ROM intact, no deep calf tenderness, no edema. Lesion noted as above. Psychological: Normal Neuro: Alert, muscle tone normal, no focal deficit Triage Information Reviewed: Yes Vital Signs On Initial Exam: Initial Vitals Temp Pulse Resp BP Pulse Ox 96.6 F 74 18 168/102 97 04/18/18 15:49 04/18/18 15:49 04/18/18 15:49 04/18/18 15:49 04/18/18 15:49 Vital Signs Reviewed: Yes Diagnostics - Vital Signs Vital Signs Temp Pulse Resp BP Pulse Ox 04/18/18 20:12 97.5 F 68 20 182/100 99 04/18/18 18:34 99.2 F 62 18 187/117 100 04/18/18 15:49 96.6 F 74 18 168/102 97 - Laboratory Lab Statement: Any lab studies that have been ordered have been reviewed, and results considered in the medical decision making process. - Radiology CXR Radiology Interpretation Completed By: ED Physician Summary of Radiographic Findings: NAD - EKG 2139 Cardiac Rate: Bradycardia - rate of 57 bpm EKG Rhythm: Sinus Bradycardia ST Segment: Non-Specific Ectopy: None EKG Comparison: No Significant Change - Compared to 03/21/18, no significant changes. Summary of EKG Findings: EKG showed sinus bradycardia with rate of 57 BPM, first degree AV block (232), normal IVCT, normal AVCT, normal axis, nonspecific changes especially in v4-v6. Compared to 03/21/18, no significant changes. Re-Evaluation - Re-Evaluation First Eval Re-Evaluation Time: 21:24 Change: Unchanged Comment: Discussed patient's case with Kraig from [place], recommends soft tissue US for leg. Complex Multi-Symp Course/Dx Assessment/Plan: Patient is a 52 y/o M w/ c/o chest pain, back pain, and right leg pain. PMHx of PE is reported. Patient was seen at [facility] in January for PE. He was seen on 03/21 for similar Sx, CTA chest/pelvis/abdomen was done and determined to be negative. However, when asked about this visit, he denies any memory of this visit. Patient states that he did not have chest pain yesterday, reports that it onset this morning. Patient rates chest pain and right leg pain 10/10 in the room. Patient reports chest pain is located at mid right-side, radiates to back. Back pain is reported to be located at mid upper region. Patient reports that he does not take pain medication daily, notes he cannot take ibuprofen due to Xarelto, patient states that he has been taking his medications daily. He states that the combination of back pain, chest pain, and right leg pain prompted today's ED visit. N/V denied, SOB is endorsed but he states he is not more SOB at present compared to yesterday. He notes bump on right leg, patient believes that he has not been bitten by an insect recently. An open area is noted at this leg as well, patient reports that he bumped his leg against a coffee table some time ago. On physical exam, discretely tender 1 cm raised lesion on the right medial upper calf, 1 cm open abrasion that is dry and at the right mid medial calf; darkened skin bilaterally from ankles to upper calves. Patient is obese. No deep calf tenderness noted. Decreased breath sounds throughout. EKG showed sinus bradycardia with rate of 57 BPM, first degree AV block (232), normal IVCT, normal AVCT, normal axis, nonspecific changes especially in v4-v6. Compared to 03/21/18, no significant changes. CXR showed NAD. Discussed patient's case with Kraig from [place], recommends soft tissue US for leg. During ED course, patient was given dilaudid 1 mg IV SLOW PUSH ED ONCE ONE. Patient is signed out to Dr. Wang pending CTA, US and labs. - Diagnoses Provider Diagnoses: Right calf pain, Chest pain Discharge - Sign-Out/Discharge Documenting (check all that apply): Sign-Out Patient Signing out patient TO: Leandro Wang - 04/18/182229 Receiving patient FROM: Beartiz Marquez - Discharge Plan Referrals: Carlin Chu MD [Primary Care Provider] - - Attestation Statements Document Initiated by Scribe: Yes Documenting Scribe: KATERIN BROOKS Provider For Whom Scribe is Documenting (Include Credential): BEATRIZ MARQUEZ MD Scribe Attestation: KATERIN Kim , scribed for BEATRIZ MARQUEZ MD on 04/18/18 at 2223. Scribe Documentation Reviewed: Yes Provider Attestation: The documentation as recorded by the scribeKATERIN accurately reflects the service I personally performed and the decisions made by me, BEATRIZ MARQUEZ MD Status of Scribe Document: Viewed
[2018-04-18 22:42] LABS: ABS Basophils 0.1 10^3/ul (0-0.2); ABS Eosinophils 0.2 10^3/ul (0-0.6); ABS Lymphocytes 1.6 10^3/ul (1.0-4.8); ABS Monocytes 0.7 10^3/ul (0-0.8); ABS Neutrophils 3.5 10^3/ul (1.5-7.7); ABS Nucleated RBC 0 10^3/ul; Eosinophil % 2.9 %; Hematocrit 45 % (42-52); Hemoglobin 14.6 g/dl (14.0-18.0); Mean Corpuscular HGB Conc 33 g/dl (31-36); Mean Corpuscular Hemoglobin 28 pg (27-31); Mean Corpuscular Volume 85 fL (80-94); Mean Platelet Volume 8.2 fL (7.4-10.4); Nucleated Red Blood Cells % 0.1; Platelet Count 206 10^3/ul (150-450); Red Blood Count 5.28 10^6/ul (4.00-5.40); Red Cell Distribution Width 15 % (10.5-15)
[2018-04-18 22:53] LABS: INR 0.98 (0.77-1.02)
[2018-04-18 23:00] LABS: EGFR Non-African American 67.6 (>60)
[2018-04-19] MEDS ORDERED: Iohexol 300* (CONTRAST) 10 ML SDV IV ONE (00:02)
--- NOTE | 2018-04-19 00:24 | ED ---
Progress - Progress Note Progress Note: The patient is a sign-out from Dr. Beatriz Fenton MD, at change of shift at [22 :00] to Dr. Leandro Wang MD, pending US, CTA, and disposition. Soft Tissue US reveals small nonspecific subcutaneous mass or collection possibly a granuloma. Chest/Thorax CTA reveals no acute pathology, although a Bosniak type I renal cyst was found. Patient is diagnosed with right leg pain and chest pain. He will be discharged home with instructions for dx and follow up with PCP. Patient agrees with this plan and understands the need for return to the ED if symptoms worsen. - Results/Orders Results/Orders: Soft Tissue US: FINDINGS: Soft tissues: Small hypoechoic nonvascular collections subcutaneous fat measures 0.7 x 0.6 x 0.2 cm. IMPRESSION: Small nonspecific subcutaneous mass or collection possibly a granuloma. ED physician has reviewed this report. Chest/Thorax CTA: FINDINGS: Pulmonary arteries: Pulmonary arteries are wellopacified to the subsegmental branches. Dilated main pulmonary artery measuring 3.5 cm. No filling defects throughout the pulmonary artery tree. Aorta: Normal caliber aorta with no evidence of dissection or rupture. Thyroid: No thyroid nodules. Lungs: No pulmonary nodules, masses, or consolidations. No bronchiectasis, peribronchial thickening, or luminal defects. Pleural space: Normal. No pneumothorax. No pleural effusion. Heart: Normal. No cardiomegaly. No pericardial effusion. Kidneys and ureters: Partially visualized left renal cyst measuring 5.4 cm ( series 2, image 121). Lymph nodes: Normal. No enlarged lymph nodes. Bones/joints: The thoracic spine demonstrates mild degenerative changes at multiple levels. No fractures. No suspicious bone lesions. Soft tissues: Normal. IMPRESSION: 1. No pulmonary emboli. No additional findings to correlate with patient's symptomatology. Findings which in the proper clinical setting can be seen in pulmonary hypertension. 2. Bosniak type I renal cyst. No followup indicated. ED physician has reviewed this report. Re-Evaluation - Re-Evaluation First Eval Re-Evaluation Time: 21:24 Change: Unchanged Comment: Discussed patient's case with Kraig from [facility], recommends soft tissue US for leg. Second Eval Re-Evaluation Time: 00:25 Change: Unchanged Comment: I spoke with patient about imaging results and disposition home. Course/Dx - Diagnoses Provider Diagnoses: Right calf pain, Chest pain Discharge - Sign-Out/Discharge Documenting (check all that apply): Patient Departure - Patient will be discharged home., Receiving Sign-Out Receiving patient FROM: Beatriz Fenton - Patient is a sign-out from Dr. Beatriz Fenton MD, at change of shift at [22:00] pending US, CTA, and disposition. - Discharge Plan Condition: Stable Disposition: HOME Patient Education Materials: Chest Pain (ED), Leg Pain (ED) Referrals: Carlin Chu MD [Primary Care Provider] - 3 Days Additional Instructions: Follow up with your primary care provider in 2-3 days. Return to the emergency department for any new or worsening symptoms. - Billing Disposition and Condition Condition: STABLE Disposition: Home - Attestation Statements Document Initiated by Katelynn: Yes Documenting Scribe: Carleen Mireles Provider For Whom Katelynn is Documenting (Include Credential): Dr. Leandro Wang MD Scribe Attestation: Carleen Kim scribed for Dr. Leandro Wang MD on 04/19/18 at 0033. Scribe Documentation Reviewed: Yes Provider Attestation: The documentation as recorded by the Carleen brown accurately reflects the service I personally performed and the decisions made by me, Dr. Leandro Wang MD Status of Scribe Document: Ready
[2018-04-19 01:10] VITALS: BP 133/74
== END 2018-04-19 00:45 | disposition home or self-care (01) ==
LOC: ED 15:43
DX: R07.9 Chest pain, unspecified (principal); M79.661 Pain in right lower leg; Z79.01 Long term (current) use of anticoagulants
CPT/HCPCS: 36415; 71045; 71275; 80053; 82550; 82553; 83605; 83735; 83880; 84484; 85025; 85379; 85610; 85730; 93005; 96374; 96375; 99282; J1170; Q9967

== ENCOUNTER 2018-04-23 16:53 | Emergency (ER) | payer MEDICARE, MEDICAID ==
[2018-04-23 17:03] VITALS: BP 177/94
[2018-04-23] MEDS ORDERED: DOXYcycline CAP(*) 100 MG PO ONE (17:13)
--- NOTE | 2018-04-23 17:17 | ED ---
Skin Complaint - HPI Summary HPI Summary: 52 year old male presents with lesion on right leg. He states that he was seen here this week and had a negative ultrasound. He states he developed a cyst on the area the next couple days. He popped it with a pin. He states some whitest discharge came out. He denies any fevers. Denies any spreading redness. he admits to some pain on the area. He denies any further drainage from the area. He states he is concerned it is infected. - History of Current Complaint Chief Complaint: EDRashSkinAbscess Time Seen by Provider: 04/23/18 17:07 Stated Complaint: POSS INFECTION ON RT LEG Pain Intensity: 10 - Additional Pertinent History Primary Care Physician: ZURI - Allergy/Home Medications Allergies/Adverse Reactions: Allergies Allergy/AdvReac Type Severity Reaction Status Date / Time amoxicillin [From Augmentin] Allergy Swelling Verified 04/23/18 17:15 clavulanic acid Allergy Swelling Verified 04/23/18 17:15 [From Augmentin] mushroom Allergy Rash Verified 04/23/18 17:15 Penicillins Allergy Anaphylatic Verified 04/23/18 17:15 Shock VINEGAR Allergy Intermediate Hives Uncoded 04/23/18 17:15 PMH/Surg Hx/FS Hx/Imm Hx Endocrine/Hematology History: Reports: Hx Anticoagulant Therapy - xarelto Denies: Hx Diabetes, Hx Sickle Cell Disease, Hx Thyroid Disease Cardiovascular History: Reports: Hx Angina, Hx Cardiac Arrest, Hx Coronary Artery Disease, Hx Hypercholesterolemia, Hx Hypertension, Hx Myocardial Infarction, Other Cardiovascular Problems/Disorders - HEART DISEASE, CARDIAC EVENT MONITOR IMPLANTED Denies: Hx Congestive Heart Failure, Hx Pacemaker/ICD, Hx Valvular Heart Disease Respiratory History: Reports: Hx Asthma, Hx Sleep Apnea Denies: Hx Chronic Obstructive Pulmonary Disease (COPD) GI History: Reports: Hx Gastroesophageal Reflux Disease Denies: Hx Ulcer History: Reports: Hx Renal Disease - cysts bilateral kidneys , Other Problems/Disorders - bilat cyst on kidneys Musculoskeletal History: Reports: Hx Arthritis, Hx Back Problems, Other Musculoskeletal History - RANDEE Denies: Hx Scoliosis Sensory History: Reports: Hx Cataracts - right eye, Hx Contacts or Glasses, Hx Hearing Aid, Hx Hearing Problem Opthamlomology History: Reports: Hx Cataracts - right eye, Hx Contacts or Glasses Neurological History: Reports: Hx Seizures, Hx Transient Ischemic Attacks (TIA) Denies: Hx Dementia, Hx Headaches, Other Neuro Impairments/Disorders Psychiatric History: Reports: Hx Depression Denies: Hx Panic Disorder - Cancer History Hx Chemotherapy: No - Surgical History Surgery Procedure, Year, and Place: APR 2004 sinus [facility] ;. 2007 left knee arthroscopy [facility] ;. 2012 left tympanoplasty WITH STAPES IMPLANT ([employer] MALLEOUS HEAD SERIAL # [id number] - PER [employer] INFORMATION SENT TO MRI ON ; IMPLANT IS STAINLESS STEEL STATES SOME DEGREE OF MAGNETISM TESTED MRI SAFE AT 1.5T ONLY - DR ANAYA APPROVED THIS INFORMATION FOR 1.5T ONLY). [facility] ;. 2014 [place] [facility] [place]. 2011 [place] - NO STENTS ;. 2010 HEART CATH WITH cardiac stents x 4 ([employer]US DRUG-ELUTING STENT OKAY IN NORMAL MODE ONLY, MAX 720 GAUSS/CM @ 1.5T[place] [facility] [place] REVEAL LINQ EVENT MONITOR PLACED- 12/15/15- ED CAME OVER W/ [employer] MACHINE & DID A DOWNLOAD SO THAT NOTHING WOULD BE ERASED Hx Anesthesia Reactions: Yes - SEIZURE LIKE ACTIVITY; REINTUBATION AFTER LEFT EAR 2012 - Immunization History Date of Tetanus Vaccine: UTD Date of Influenza Vaccine: 03/05 Infectious Disease History: No Infectious Disease History: Denies: Hx Clostridium Difficile, Hx Hepatitis, Hx Human Immunodeficiency Virus (HIV), Hx of Known/Suspected MRSA, Hx Shingles, Hx Tuberculosis, Hx Known/ Suspected VRE, Hx Known/Suspected VRSA, History Other Infectious Disease, Traveled Outside the [place] in Last 30 Days - Family History Known Family History: Positive: Cardiac Disease, Hypertension, Diabetes - Social History Alcohol Use: None Hx Substance Use: No Substance Use Type: Reports: None Hx Tobacco Use: Yes Smoking Status (MU): Former Smoker Type: Cigarettes Length of Time of Smoking/Using Tobacco: 10-12 YRS Have You Smoked in the Last Year: No Review of Systems Negative: Fever Negative: Chest Pain Negative: Shortness Of Breath Positive: Rash All Other Systems Reviewed And Are Negative: Yes Physical Exam Triage Information Reviewed: Yes Vital Signs On Initial Exam: Initial Vitals Temp Pulse Resp BP Pulse Ox 97 F 64 20 177/94 100 04/23/18 16:59 04/23/18 16:59 04/23/18 16:59 04/23/18 16:59 04/23/18 16:59 Vital Signs Reviewed: Yes Appearance: Positive: Well-Appearing Skin: Positive: Warm, Dry, Other - 2cm scabbed over lesion on right leg some induration felt underneath, no erythema or flutance present, tenderness over area Head/Face: Positive: Normal Head/Face Inspection Eyes: Positive: Normal, Conjunctiva Clear ENT: Positive: Pharynx normal Respiratory/Lung Sounds: Positive: Clear to Auscultation, Breath Sounds Present Cardiovascular: Positive: Normal, RRR Musculoskeletal: Positive: Normal Neurological: Positive: Normal Psychiatric: Positive: Normal Diagnostics - Vital Signs Vital Signs Temp Pulse Resp BP Pulse Ox 04/23/18 16:59 97 F 64 20 177/94 100 - Laboratory Lab Statement: Any lab studies that have been ordered have been reviewed, and results considered in the medical decision making process. Course/Dx - Course Course Of Treatment: 52 year old male presents with lesion on right leg. He states that he was seen here this week and had a negative ultrasound. He states he developed a cyst on the area the next couple days. He popped it with a pin. He states some whitest discharge came out. He denies any fevers. Denies any spreading redness. he admits to some pain on the area. He denies any further drainage from the area. He states he is concerned it is infected. On exam has 2 cm x 1 tenderness Area on right ortiz. Some induration present but no erythema or fluctuation. Does not appear like anything Can be drained. We'll treat as a potential healing abscess with doxycycline. Told to follow with primary to ensure that is resolving. Patient understands agrees the plan. - Differential Diagnoses - Skin Complaint Differential Diagnoses: Abscess, Cellulitis, Contact Dermatitis - Diagnoses Provider Diagnoses: Abscess of right leg Discharge - Sign-Out/Discharge Documenting (check all that apply): Patient Departure - Discharge Plan Condition: Good Disposition: HOME Prescriptions: DOXYcycline CAP(*) [DOXYcycline 100MG CAP(*)] 100 mg PO BID #[id number] cap Patient Education Materials: Abscess (ED) Referrals: Carlin Chu MD [Primary Care Provider] - Additional Instructions: Take antibiotic twice a day for 10 days, first dose given in ED Apply warm compresses to area Take Tylenol for pain every 6 hours Follow up with primary within 3 days Return to ED if develop fever, area of redness spreads, or any new or worsening symptoms - Billing Disposition and Condition Condition: GOOD Disposition: Home
== END 2018-04-23 17:27 | disposition home or self-care (01) ==
LOC: ED 16:53
DX: L02.415 Cutaneous abscess of right lower limb (principal); R21 Rash and other nonspecific skin eruption; Z87.891 Personal history of nicotine dependence
CPT/HCPCS: 99282; A9270-GY

== ENCOUNTER 2018-05-16 21:09 | Emergency (ER) | payer MEDICARE, MEDICAID ==
--- NOTE | 2018-05-16 21:32 | ED ---
HPI Chest Pain - HPI Summary HPI Summary: A 52 y/o male presents to [facility] with a chief complaint of chest pain since 19: 00 05/16/18. The patient claims that he was at voodoo when he felt his pain. He denies N/V but admits to diaphoresis. He reports that his CP was worse in voodoo than it is in the ED. He describes the pain as sharp. He rates his pain as 10/10. He also c/o left arm pain, SOB and left ear pain. Deep breaths aggravate his pain. He reports his left ear has been bothering him for a long time, stating that ear drops have not alleviated his pain. He saw an ENT MD and claims that his ear was fine. The patient is obese. He reports that he does not have a job and most of the time is laying or sitting down. The patient is on disability. He admits a Hx of cardiac disease, HTN and asthma. He denies a Hx of DM. He had three stents in 2010. He states that a month after his stents he felt his heart fluttering. He denies smoking or drug use although he is a former smoker. - History of Current Complaint Chief Complaint: EDChestPainROMI Time Seen by Provider: 05/16/18 21:23 Hx Obtained From: Patient Onset/Duration: Started Hours Ago, Still Present Timing: Constant Initial Severity: Severe Current Severity: Severe Pain Intensity: 10 Pain Scale Used: 0-10 Numeric Chest Pain Location: Diffuse Chest Pain Radiates: Yes Chest Pain Radiates To:: Arm Character: Sharp/Stabbing Aggravating Factor(s): Deep Breaths Alleviating Factor(s): Nothing Associated Signs and Symptoms: Positive: Shortness of Breath, Diaphoresis, Other : - positive: left arm pain, left ear pain. Negative: Nausea, Vomiting - Additional Pertinent History Primary Care Physician: [id number] - Allergy/Home Medications Allergies/Adverse Reactions: Allergies Allergy/AdvReac Type Severity Reaction Status Date / Time amoxicillin [From Augmentin] Allergy Swelling Verified 04/23/18 17:15 clavulanic acid Allergy Swelling Verified 04/23/18 17:15 [From Augmentin] mushroom Allergy Rash Verified 04/23/18 17:15 Penicillins Allergy Anaphylatic Verified 04/23/18 17:15 Shock VINEGAR Allergy Intermediate Hives Uncoded 04/23/18 17:15 PMH/Surg Hx/FS Hx/Imm Hx Endocrine/Hematology History: Reports: Hx Anticoagulant Therapy - xarelto Denies: Hx Diabetes, Hx Sickle Cell Disease, Hx Thyroid Disease Cardiovascular History: Reports: Hx Angina, Hx Cardiac Arrest, Hx Coronary Artery Disease, Hx Hypercholesterolemia, Hx Hypertension, Hx Myocardial Infarction, Other Cardiovascular Problems/Disorders - HEART DISEASE, CARDIAC EVENT MONITOR IMPLANTED Denies: Hx Congestive Heart Failure, Hx Pacemaker/ICD, Hx Valvular Heart Disease Respiratory History: Reports: Hx Asthma, Hx Sleep Apnea Denies: Hx Chronic Obstructive Pulmonary Disease (COPD) GI History: Reports: Hx Gastroesophageal Reflux Disease Denies: Hx Ulcer History: Reports: Hx Renal Disease - cysts bilateral kidneys , Other Problems/Disorders - bilat cyst on kidneys Musculoskeletal History: Reports: Hx Arthritis, Hx Back Problems, Other Musculoskeletal History - RANDEE Denies: Hx Scoliosis Sensory History: Reports: Hx Cataracts - right eye, Hx Contacts or Glasses, Hx Hearing Aid, Hx Hearing Problem Opthamlomology History: Reports: Hx Cataracts - right eye, Hx Contacts or Glasses Neurological History: Reports: Hx Seizures, Hx Transient Ischemic Attacks (TIA) Denies: Hx Dementia, Hx Headaches, Other Neuro Impairments/Disorders Psychiatric History: Reports: Hx Depression Denies: Hx Panic Disorder - Cancer History Hx Chemotherapy: No - Surgical History Surgery Procedure, Year, and Place: APR 2004 [place] [facility] [place] ;. 2007 [place] arthrosc[place] [facility] [place] ;. 2012 left tympanoplasty WITH STAPES IMPLANT ([employer] MALLEOUS HEAD SERIAL # [id number] - PER [employer] INFORMATION SENT TO MRI ON ; IMPLANT IS STAINLESS STEEL STATES SOME DEGREE OF MAGNETISM TESTED MRI SAFE AT 1.5T ONLY - DR ANAYA APPROVED THIS INFORMATION FOR 1.5T ONLY). [facility] [place] ;. [place] [facility] [place] 2011 [place] C[place] - NO STENTS ;. 2010 HEART CATH WITH cardiac stents x 4 (PROMUS DRUG-ELUTING STENT OKAY IN NORMAL MODE ONLY, MAX 720 GAUSS/CM @ 1.5T) [facility] [place] REVEAL LINQ EVENT MONITOR PLACED- 12/15/15- ED CAME OVER W/ [employer] MACHINE & DID A DOWNLOAD SO THAT NOTHING WOULD BE ERASED Hx Anesthesia Reactions: Yes - SEIZURE LIKE ACTIVITY; REINTUBATION AFTER LEFT EAR 2012 - Immunization History Date of Tetanus Vaccine: UTD Date of Influenza Vaccine: 03/05 Infectious Disease History: No Infectious Disease History: Denies: Hx Clostridium Difficile, Hx Hepatitis, Hx Human Immunodeficiency Virus (HIV), Hx of Known/Suspected MRSA, Hx Shingles, Hx Tuberculosis, Hx Known/ Suspected VRE, Hx Known/Suspected VRSA, History Other Infectious Disease, Traveled Outside the [place] in Last 30 Days - Family History Known Family History: Positive: Cardiac Disease, Hypertension, Diabetes - Social History Alcohol Use: None Hx Substance Use: No Substance Use Type: Reports: None Hx Tobacco Use: Yes Smoking Status (MU): Former Smoker Type: Cigarettes Length of Time of Smoking/Using Tobacco: 10-12 YRS Have You Smoked in the Last Year: No Review of Systems Positive: Skin Diaphoresis. Negative: Fever Positive: Ear Ache - left ear pain Positive: Chest Pain Positive: Shortness Of Breath Negative: Vomiting, Nausea Positive: Myalgia - left arm pain All Other Systems Reviewed And Are Negative: Yes Physical Exam - Summary Physical Exam Summary: Appearance: Morbidly obese, appears uncomfortable. Skin: Warm, dry, no obvious rash Eyes: sclera anicteric, no conjunctival pallor ENT: mucous membranes moist, pharynx appears normal Neck: Supple, nontender Respiratory: Clear to auscultation, no signs of respiratory distress Cardiovascular: Normal S1, S2. No murmurs. Normal distal pulses in tibial and radial bilaterally. Abdomen: Soft, nontender, normal active bowel sounds present Musculoskeletal: Normal, Strength/ROM Intact Neurological: A&Ox3, awake and alert, mentation is normal, speech is fluent and appropriate Psychiatric: affect is normal, does not appear anxious or depressed Triage Information Reviewed: Yes Vital Signs On Initial Exam: Initial Vitals Temp Pulse Resp BP Pulse Ox 97.7 F 66 22 162/90 99 05/16/18 21:12 05/16/18 21:12 05/16/18 21:12 05/16/18 21:12 05/16/18 21:12 Vital Signs Reviewed: Yes Diagnostics - Vital Signs Vital Signs Temp Pulse Resp BP Pulse Ox 05/16/18 21:12 97.7 F 66 22 162/90 99 - Laboratory Result Diagrams: 05/16/18 21:56 05/16/18 21:56 Lab Statement: Any lab studies that have been ordered have been reviewed, and results considered in the medical decision making process. - Radiology CXR Radiology Interpretation Completed By: ED Physician Summary of Radiographic Findings: No acute disease. Pending official radiology report. - EKG 21:18 Cardiac Rate: NL - 69 bpm EKG Rhythm: Sinus Rhythm Summary of EKG Findings: NSR at 69 BPM, P waves, QRS complex, and T waves are within normal limits, T waves and intervals are normal, no ischemic changes. This is a normal EKG Re-Evaluation - Re-Evaluation First Eval Re-Evaluation Time: 23:23 Comment: Lab work so far is coming back negative. Troponin is flat and d-dimer is normal. Chest Pain Course/Dx - Course Course Of Treatment: A 52 y/o male presents to [facility] with a chief complaint of chest pain since 19:00 05/16/18. The patient claims that he was at voodoo when he felt his pain. He denies N/V but admits to diaphoresis. He reports that his CP was worse in voodoo than it is in the ED. He describes the pain as sharp. He rates his pain as 10/10. He also c/o left arm pain, SOB and left ear pain. Deep breaths aggravate his pain. He reports his left ear has been bothering him for a long time, stating that ear drops have not alleviated his pain. He saw an ENT MD and claims that his ear was fine. The patient is obese. He reports that he does not have a job and most of the time is laying or sitting down. The patient is on disability. He admits a Hx of cardiac disease, HTN and asthma. He denies a Hx of DM. He had three stents in 2010. He states that a month after his stents he felt his heart fluttering. He denies smoking or drug use although he is a former smoker. His EKG showed NSR at 69 BPM, P waves, QRS complex, and T waves are within normal limits, T waves and intervals are normal, no ischemic changes. This is a normal EKG. His CXR showed no acute disease. Review of his chart shows that he has had many prior ED visits for similar symptoms. On one occasion he was diagnosed with a pulmonary embolism and admitted, although it appears that was a fairly small embolus, nonobstructive and subsegmental. His last cardiac catheterization showed coronary artery disease but no lesions amenable to revascularization he was treated medically. Subsequent stress tests appear unremarkable. He does not appear to have suffered any neck or infarction, with a number of negative troponins in the record. We will rule him out for MN with serial troponins, check a d-dimer, and I will order some medication for his pain. Lab work obtained and WNL. Troponin 0.01. Repeat troponin 0.01. In the ED course the patient was given Maalox Plus PO and Lidocaine PO. The patient will be discharged and is agreeable with this plan. - Chest Pain Differential Diagnosis/HQI/PQRI: Acute MN, ACS, Angina, GI Disease, Pulmonary Embolism - Diagnoses Provider Diagnoses: Chest pain, History of tympanomastoidectomy, HTN (hypertension), Morbid obesity Provider Diagnoses: (Ruled Out): Pulmonary embolism Discharge - Sign-Out/Discharge Documenting (check all that apply): Patient Departure - DC - Discharge Plan Condition: Good Disposition: HOME Patient Education Materials: Chest Pain (ED) Referrals: Carlin Chu MD [Primary Care Provider] - Additional Instructions: Call your organic section technical lead tomorrow to let them know you were here. Your blood tests and EKG did not show any sign of trouble with your heart. We also did a blood test to rule out a recurrent embolus in your lung, which was also normal. - Billing Disposition and Condition Condition: GOOD Disposition: Home - Attestation Statements Document Initiated by Katelynn: Yes Documenting Swatiibe: Nguyễn Bassett Provider For Whom Katelynn is Documenting (Include Credential): Zhao Crenshaw MD Scribe Attestation: Nguyễn Kim scribed for Zhao Crenshaw MD on 05/17/18 at 0537. Scribe Documentation Reviewed: Yes Provider Attestation: The documentation as recorded by the Nguyễn brown accurately reflects the service I personally performed and the decisions made by me, Zhao Crenshaw MD Status of Scryue Document: Viewed
--- OUTSIDE RECORDS SUMMARY | 2018-05-16 21:48 | XMS REPORT | Continuity of Care Document ---
:1965 External Reference #:[id number] Author Name Cezar Guerra MD Address [address] [place] [address] Care Team Providers Name Role Phone Carlin Chu MD Care Team Information Home Care Manager Rn Unavailable Carlin Chu MD Primary Care Physician Unavailable Payers Type Date Identification Numbers Payment Provider Subscriber Effective: Policy Number: [id number] Medicare-[facility] Govn Cas Glaser 1999 [employer]VS PayID: [id number] [address] [place] [address] Policy Number: [id number] Medicaid/C Cas Glaser Group Number: [id number] Medicare Primary Group Name: [id number] [address] PayID: [id number] [place] [address] Advance Directives Description No Information Available Problems [...] Onset: 02/23/2011 Gastroesophageal reflux disease Mikala Cordova [employer] Active Onset: 02/23/2011 Extrinsic asthma without status Mikala Cordova NP Active asthmaticus Onset: 02/23/2011 Peptic reflux disease Mikala Cordova [employer] Active Onset: 02/23/2011 Allergic rhinitis Mikala Cordova [employer] Active Onset: 04/15/2018 Chronic tympanitis Marguerite Muller [...] DR 40mg 60cap 40mg po 530.81 Julio NSandie s bid for 1 Strominge month for rJacobo esophagiti s Advair Hfa 10/22 Active Aerosol 115/21 1unit 2 Puffs 478.19 Julio Swift /2007 s bid With Strominge Spacer Jacobo akbar Please Provide Spacer Albuterol Active Aerosol 90mcg/Dos 2unit 2 Puffs Cezar Inhalation / e s Q4H prn Eddie Guerra MD Bystolic Active 5mg qd Unknown Aspirin Active Tablets DR 81mg Unknown Nitroglycerin Active ?mg prn Only Kimberley, / Carlin SANTIAGO Ranexa Active Tablets ER 500mg 1 po bid Unknown 12HR Atorvastatin Active Tablets 40mg 1 po qd Unknown Calcium Klor-Con M20 Active Tablets ER 20Meq Stefek,Pa john EckertDSandie Metoprolol Active Tablets ER 50mg Unknown Succinate ER 24HR Triamterene/[place] Active Capsules 37.5-25mg Kimberley chlorothiazide / Carlin Fish Diskus Active Aerosol 250-50mcg Kimberley, /0000 /Dose Carlin SANTIAGO Proair HFA Active Aerosol 108(90Bas Kimberley, / e) Carlin SANTIAGO mcg/Act Atorvastatin Active Tablets 20mg Stefek,Pa Calcium / ul M.D. Clopidogrel Active Tablets 75mg Kimberley, Bisulfate Carlin SANTIAGO Xarelto Active Tablets 20mg Kimberley, Carlin SANTIAGO Famotidine Active Tablets 20mg Kimberley, Carlin SANTIAGO Cipro HC 04/15 Hx Suspension 0.2-1% 10ml Instill H73.12 Julio N. 5-8 drops Strominge - into the r, M.D. 04/30 left ear times a day for 10 days Tobradex 04/15 Hx Suspension 0.3-0.1% 10ml Instill Julio N. 5-8 drops Strominge - in the r, M.D. 04/30 left ear times a day for 10 days. Ciprodex 09/05 Hx Suspension 0.3-0.1% 7.500 4 drops ml left ear Eddie Guerra, - twice a 01/07 day for days Methylprednisolon 08/13 Hx TBPK 4mg 1pack take as directed Pipe Fernando MD 01/07 Mupirocin 04/26 Hx Ointment 2% 22gm apply to both Pipe Fernando nostril 01/07 twice a day Triamcinolone 05/25 Hx Cream 0.1% 15gm Apply to Cezar Acetonide left ear Eddie Guerra - twice 01/07 daily for 1 week Percocet 05/04 Hx Tablets 5-325mg 30tab 1-2 tabs Cezar s by mouth Eddie Guerra - every 4-6 04/15 hours needed for pain Levofloxacin 05/04 Hx Tablets 500mg 10tab 1 by mouth Cezar s every day Pipe Fernando MD 01/07 Ciprodex 09/11 Hx Suspension 0.3-0.1% 1Bott 4 drops to le left ears E. Mari, - twice a 01/07 day apply rebate rx bin: [id number] rxpcn: loyalty rxgrp:[id number] structures assembler: ([id number]) id#[id number] 25 Ofloxacin 12/17 Hx Solution 0.3% 1unit 4 drops to Julio N. s affected Strominge - ear daily r, Jacobo 03/12 Ciprodex 12/15 Hx Suspension 0.3-0.1% 2unit 4 drops Julio N. s infected Strominge - ear bid r, M.DSandie 03/12 rebate rxbin: [id number] rxpcn: loyalty rxgrp: [id number] structures assembler: ([id number]) id: [id number] Oxycodone/Acetami 12/03 Hx Tablets 5-325mg 30tab 1-2 tabs Julio chacon s by mouth Strominge - every 4-6 r, Jacobo 04/15 hours needed for pain Ciprodex 08/28 Hx Suspension 0.3-0.1% 2unit 4 drops 385.32 Julio Swift s infected Strominge - ear bid rJacobo 12/02 rebate rxbin: [id number] rxpcn: loyalty rxgrp: [id number] structures assembler: ([id number]) id: [id number] Levofloxacin 07/23 Hx Tablets 500mg 10tab 1 po qd s ESandie Mari, - MD 12/02 Oxycodone/Acetami 07/23 Hx Tablets 5-325mg 30tab 1-2 tabs Cezar saleh s by mouth ESandie Guerra, - every 4-6 MD 12/02 hours needed for pain Ciprodex 03/04 Hx Suspension 0.3-0.1% 2unit 4 drops 381.3 s infected ESandie Guerra, - ear bid x 07/23 14 days /2012 apply rebate rxbin: [id number] rxpcn: loyalty rxgrp: [id number] structures assembler: ([id number]) id: [id number] Ipratropium 11/18 Hx Solution 0.06% 6unit 2 to 4 J31.0 Julio N. [place] s sprays in [facility] - each Jacobo akbar 04/15 nostril times a day as needed for rhinitis Bacitracin 11/18 Hx 1Tube apply to 472.0 Julio N. Ointment rim of [facility] - nose both r, MCarlos 12/02 sides in the am and the pm. Flovent HFA 09/17 Hx Aerosol 110mcg/Ac 1unit 2 puff bid 493.01 Julio NSandie /2011 t s Tani akbar M.D. 12/02 Fluticasone Nasal 09/20 Hx 50mcg 1unit 2 sprays Cezar s each side Eddie Guerra - bid 04/15 Omnaris 09/19 Hx Suspension 50mcg/Act 2 sprays Julio Swift s each Strominge - nostril Jacobo akbar 09/17 Percocet 06/30 Hx Tablets 5-325mg 30tab 1-2 tabs s by mouth Pipe Fernando every 4-6 01/07 hours needed for pain Ciprofloxacin HCL 06/30 Hx Tablets 500mg 14tab 1 tablet s twice a Pipe Fernando day for 7 Astepro Nasal 09/16 Hx 0.15% 205 1unit 2 sprays Julio Swift [place] mcg s once a day Tani akbar M.D. 04/15 Aciphex 04/[address] 20mg 30tab 1 po Daily Julio Swift s Tani akbar M.D. 05/24 Mucinex DM 03/10 Hx Tablets ER 60-1200 5Days 1 op qd 478.1-4 Cezar Maximum Strength 12HR Pipe Fernando MD 09/30 Fexofenadine HCL 12/28 Hx Tabs 180mg 30tab 1qd - Take Cezar s One Tablet Eddie Guerra - By Mouth 05/24 Every Singulair 11/21 Hx Tabs 10mg 30tab 1qd - Take 477.0 s One Tablet Pipe Fernando By Mouth 04/15 Every Day Medrol Dosepak 07/28 Hx Tablets 4mg 1Pack Take as 350.2 Directed Pipe Fernando MD 05/24 Prednisone 05/04 Hx Tablets 20mg 5Days 3 PO qd Julio N. With Food Tani akbar M.D. 12/28 Augmentin 04/26 Hx Tablets 875mg 14Day 1 po bid 473.0 N. s with food Tani akbar M.D. 05/04 Aciphex 12/[address] 20mg 60tab 1 po bid 530.81 s Pipe Fernando MD 09/30 Fexofenadine HCL 12/03 Hx Tablets 180mg 30tab 1 po qd 477.8 N. zeferino akbar M.D. 12/28 Zyrtec 11/03 Hx Tablets 10mg 30tab 1 PO qd N. zeferino akbar M.D. 12/28 Fluticasone 04/02 Hx Suspension 50mcg/Act 1mont 2 sprays 471.8 Cezar Propionate /2006 h each Pipe Fernando nostril 05/04 daily /2007 Prednisone 01/31 Hx Tablets 10mg 40tab 4 Tabs PO 471.8 Cezar s Every Day Eddie Guerra - X4 D, Then 03/03 3 Tabs PO /2006 Every Day X 4D, Then 2 Tab PO Daily X4D, Then 1 Tab PO Daily X4D Nasacort Aq 04/24 Hx Suspension 55mcg/Act 1unit 2 Sprays 471.8 Cezar Intranasal [place] /2005 uation s Each Eddie Guerra - Nostril qd 05/04 Levaquin 04/24 Hx Tablets 500mg 10tab 1 Tablet 471.8 s By Mouth Eddie Guerra - Daily 03/03 Until Finished Nexium 10/24 Hx Unknown /2005 - 05/04 Singulair 07/11 Hx Tablets 10mg 30tab 1 PO qd 471.8 Cezar /2005 Pipe Waller MD 11/03 Nasacort Aq 09/13 Hx Suspension 55McG/Act 1unit 2 sprays 473.2 Cezar Intranasal [place] /2004 uation s Pipe Swanson nostril qd 12/02 Clopidrogel Hx Tablets 75mg Unknown / - 04/15 Isosorbide Hx 60mg 1 po qd Unknown Dinitrate SA / - 04/15 Simvastatin Hx ?mg oen po qd Kimberley, / Carlin SANTIAGO - 04/15 Lisinopril / Hx Unknown /0000 - 12/02 Pepcid ac Ez Hx Unknown Chews Maximum / Strength - 12/02 Sertraline HCL Hx ?mg one po qd Kimberley, / Carlin SANTIAGO - 04/15 Triamterene/[place] Hx Unknown chlorothiazide / - 04/30 Clopidogrel Hx Tablets 75mg StefekPa Bisulfate / ul M.D. - 04/15 Fluticasone Hx Suspension 50mcg/Act Unknown Propionate / - 04/15 Famotidine Hx Tablets 20mg Unknown / - 04/15 Immunizations CPT Code Status Date Vaccine Lot # [id number] Ordered 02/17/2015 Influenza Virus Vaccine, 3 Years Of Age And Above, Intramuscular 49884 Given Unknown Influenza Virus Vaccine, 3 Years Of Age And Above, Intramuscular Vital Signs Date Vital Result Comment 05/01/2018 11:34am Weight 347.00 lb Weight 157.399 kg Height 69 inches 5'9" Height in cm's 175.3 cm BMI (Body Mass Index) 51.2 kg/m2 04/15/2018 10:50am Weight 347.00 lb Weight 157.399 [...] H/L Range Note CBC No Diff 05/04/2015 [facility] White Blood 5.2 10^3 /uL N 3.5-10.8 1 c/o Department [place] [address] [phone] Red Blood Count 5.43 10^6/uL High 4.0-5.4 Hemoglobin 15.1 g/dL N 14.0-18.0 Hematocrit 47 % N 42-52 Mean Corpuscular Volume 87 fL N 80-94 Mean Corpuscular Hemoglobin 28 pg N 27-31 Mean Corpuscular HGB Conc 32 g/dL N 31-36 Red Cell Distribution Width 15 % N 10.5-15 Platelet Count 232 10^3/uL N 150-450 Mean Platelet Volume 8 um3 N 7.4-10.4 Inr/Protime 05/04/2015 [facility] Inr 1.05 N 0.89- 1.11 c/o Department [place] [address] [phone] Laboratory test 05/04/2015 [facility] Partial 45.0 High 26.0-36.3 2 finding c/o Department [place] [address] Time PTT [phone] Basic Metabolic 05/04/2015 [facility] Sodium 141 mmol/ L N 133-145 Panel c/o [place] [address] [phone] Potassium 3.8 mmol/L N 3.5-5.0 Chloride 106 [...] N >60 3 Laboratory test finding 12/06/2012 [facility] Inr 0.96 0.87-0.97 4 c/o [place] [address] [phone] Activated Partial Thrombo Time 44.1 seconds High 22.18-37.18 5 Basic Metabolic 12/02/2012 [facility] Sodium 140 mmol/ L 133-145 Panel c/o [place] [address] [phone] Potassium 4.3 mmol/L 3.5-5.0 Chloride 104 mmol/L 101-111 Co2 Carbon Dioxide 30.0 mmol/L 22-32 Anion Gap 6.0 mmol/L 2-11 Glucose 111 mg/dL High 70-100 Blood Urea Nitrogen 14 mg/dL 6-24 Creatinine 1.30 mg/dL 0.50-1.40 BUN/Creatinine Ratio 10.8 8-20 Calcium 9.7 mg/dL 8.1-9.9 Egfr Non- 58.7 >60 Egfr 75.5 >60 6 CBC Auto 07/23/2012 [facility] White Blood 4.0 10^3/ uL Low 4.8-10.8 Diff c/o Department [place] [address] [phone] Red Blood Count 4.93 10^6/uL 4.0-5.4 Hemoglobin [...] Blood Cells % 0.2 Basic Metabolic 07/23/2012 [facility] Sodium 135 mmol/ L 133-145 Panel c/o Department [place] [address] [phone] Potassium 3.6 mmol/L 3.5-5.0 Chloride 102 mmol/L 101-111 Co2 Carbon Dioxide 30.0 mmol/L 22-32 Anion Gap 3.0 mmol/L 2-11 Glucose 80 mg/dL 70-100 Blood Urea Nitrogen 11 mg/dL 6-24 Creatinine 1.10 mg/dL 0.50-1.40 BUN/Creatinine Ratio 10.0 8-20 Calcium 9.0 mg/dL 8.1-9.9 Egfr Non- 71.4 >60 Egfr 91.9 >60 7 Laboratory test 04/28/2008 [facility] Troponin-I (TnI) 0.04 NG/ML 0-0.06 8 finding c/o [place] [address] [phone] Stat CMP 04/28/2008 [facility] Sodium 136 mmol/L 135-145 c/o Department [place] [address] [phone] Potassium 3.9 mmol/L 3.5-5.0 Chloride 104 mmol/L [...] (Sgot) 31 U/L 12-42 CBC With 04/28/2008 [facility] White Blood 6.7 CUMM 4.8-10.8 Electronic Diff c/o Department [place] [address] [phone] Red Cell Count 5.28 CUMM 4.6-6.2 Hemoglobin [...] Abs Basophils 0 0-0.2 Laboratory test 04/26/2008 [facility] Culture FEW COLONIES 12 finding c/o Department of Laboratories Sensitivity OF <SEE NOTE> [place] [address] [phone] 1 SDS 05/11 2 SDS 05/11 3 [...] <0.06 ng/ml NOT SUPPORTIVE OF DIAGNOSIS OF GA 0.06 - 0.50 ng/ml INDETERMINATE: SUGGEST SERIAL STUDIES IF CLINICALLY INDICATED. > 0.5 ng/ml CONSISTENT WITH DIAGNOSIS OF GA . 9 Anion gap measurement may be of limited value in the presence of any alkalosis, especially in a combined acid base disorder. . 10 Note change in reference range as of 01/08/08. The change was based on recommendations from the [place] [employer]. 11 Please note change in reference range effective 07 . 12 FEW COLONIES OF NORMAL RESPIRATORY MARY BETH Procedures Date Code Description Status 04/15/2018 35495 Debridement Of Mastoid Cavity, Simple Completed 08/13/2017 05183 Nasal Endoscopy, Diagnostic Completed 03/21/2016 84004 Nasal Endoscopy, Diagnostic Completed 05/11/2015 33712 Revision Mastoidectomy Resulting In Modified Radical Completed Mastoidctomy 01/28/2014 47499 Fiberoptic Laryngoscopy Completed 09/29/2013 31332 Tympanometry Completed 09/29/2013 70578 Comprehensive Audiogram Completed 03/12/2013 98348 Tympanometry Completed 03/12/2013 45853 Comprehensive Audiogram Completed 01/21/2013 52090 Binocular Microscopy Completed 12/09/2012 00709 Tympanomastoidectomy W/Ossicular Chain Completed 09/25/2012 14551 Medical Records Completed 08/28/2012 82310 Tympanometry Completed 08/28/2012 79678 Comprehensive Audiogram Completed 06/05/2012 51927 Comprehensive Audiogram Completed 06/05/2012 33047 Tympanometry Completed 03/04/2012 29556 Binocular Microscopy Completed 11/19/2011 94145 Nasal Endoscopy, Diagnostic Completed 07/06/2011 42736 Tympanometry Completed 07/06/2011 96095 Comprehensive Audiogram Completed 07/03/2011 88855 Tympanometry Completed 07/03/2011 03859 Binocular Microscopy Completed 11/03/2010 96553 Fiberoptic Laryngoscopy Completed 09/19/2010 22550 Tympanometry Completed 05/24/2010 98269 Tympanometry Completed 05/24/2010 88760 Comprehensive Audiogram Completed 11/09/2009 40813 Tympanometry Completed 04/07/2009 03092 Tympanometry Completed 03/30/2009 10729 Binocular Microscopy Completed 03/10/2009 36732 Comprehensive Audiogram Completed 03/10/2009 19710 Tympanometry Completed 04/26/2008 66146 Nasal Endoscopy, Diagnostic Completed 01/15/2008 03763 Fiberoptic Laryngoscopy Completed 01/05/2008 65008 No Show Fee Completed 11/04/2007 28815 Demonstration/Eval. Of Patient Utilization Of Completed Spacer/Nebulizer 11/04/2007 46697 Respiratory Flow Volume Loop Completed 11/04/2007 86561 Bronchospasm Evaluation Completed 07/24/2007 42459 Prick Test Completed 07/24/2007 57933 Prick Test Completed 07/11/2007 81783 Nasal Endoscopy, Diagnostic Completed 04/02/2007 16157 Nasopharyngoscopy Completed 01/31/2007 98717 Nasal Endoscopy, Diagnostic Completed 01/31/2007 82238 Comprehensive Audiogram Completed 01/31/2007 87214 Comprehensive Audiogram Completed 01/31/2007 46806 Tympanometry Completed 01/31/2007 73651 Tympanometry Completed 12/24/2006 17555 Tympanostomy W/Tube Local Or Topical Anes. Completed 12/02/2006 49097 Tympanometry Completed 12/02/2006 88012 Tympanometry Completed 12/02/2006 14240 Comprehensive Audiogram Completed 12/02/2006 38993 Comprehensive Audiogram Completed 10/26/2005 56236 Nasal Endoscopy, Diagnostic Completed 04/06/2005 41664 Nasal Endoscopy, Diagnostic Completed 09/13/2004 49706 Nasal Endoscopy W/ Debridement Completed 05/24/2004 64534 Nasal Endoscopy W/ Debridement Completed 05/02/2004 02886 Nasal Endoscopy W/Maxllary Antrostomy W/Excision Of Poylp Completed 05/02/2004 06835 Nasal Endoscopy With Ethmoidectomy, Partial Completed 04/28/2004 11636 Nasal Endoscopy, Diagnostic Completed 03/27/2004 96647 Nasal Endoscopy, Diagnostic Completed 03/01/2004 30271 Nasal Endoscopy, Diagnostic Completed 07/01/2003 64339 No Show Fee Completed Encounters Type Date Location Provider Dx Diagnosis Office Visit 05/01/2018 [place],After Cezar Carpio1.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 05/20/07 MD Mari tympanum, left ear Office Visit 01/07/2018 [place],After Cezar Carpio1.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 of 10:30a 05/20/07 MD bryce Guerraum, left ear J31.0 Chronic rhinitis G50.1 Atypical facial pain Office Visit 10/04/2017 [place],After Cezar Carpio1.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 of 10:00a 05/20/07 MD Mari tympanum, left ear Office Visit 06/06/2017 [place],After Cezar Carpio1.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 of 11:15a 05/20/07 MD Mari tympanum, left ear Office Visit 02/15/2017 [place],After Cezar Carpio1.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 of 11:00a 05/20/07 MD bryce Guerraum, left ear H72.2x1 Other marginal perforations of tympanic membrane, right ear Office Visit 08/28/2016 [place],After Cezar Carpio1.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 of 10:30a 05/20/07 MD Mari tympanum, left ear Office Visit 04/26/2016 [place],After Cezar Morgan J31.0 Chronic rhinitis 2:45p 05/20/07 MD Mari 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, left ear Office Visit 12/30/2015 [place],[facility] Cezar Morgan H71.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 of 11:00a 05/20/07 MD Mari tympanum, left ear H60.11 Cellulitis of right external ear Office Visit 09/29/2015 [place],[facility] Cezar Morgan H71.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 of 11:00a 05/20/07 MD Mari tympanum, left ear Office Visit 05/25/2015 [place],After Cezar Morgan L23.3 Allergic contact 3:45p 05/20/07 MD Mari dermatitis due to drugs in contact w skin Office Visit 03/24/2015 [place],[facility] Cezar Morgan 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.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 05/20/07 MD Mari tympanum, left ear Office Visit 03/17/2015 [place],After Cezar Morgan H71.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 of 10:30a 05/20/07 MD Mari tympanum, left ear Office Visit 03/03/2015 [place],After Cezar Morgan 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, 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, left ear Office Visit 12/31/2014 10:15a [place],After 05/20/07 Cezar Morgan 381.29 Otitis Media MD Mari Chronic Media Other 385.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 Office Visit 10/28/2014 3:45p [place],After 05/20/07 Cezar Morgan 381.29 Otitis Media MD Mari Chronic Media Other 385.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 Office Visit 04/01/2014 9:45a [place],After 05/20/07 Cezar Morgan 381.29 Otitis Media MD Mari Chronic Media Other Office Visit 01/28/2014 10:45a [place],After 05/20/07 Cezar Morgan 381.29 Otitis Media MD Mari Chronic Media Other 787.20 Dysphagia, Unspecified Office Visit 11/04/2013 10:15a [place],After 05/20/07 Cezar Guerra MD 786.2 Cough 787.20 Dysphagia, Unspecified 493.00 Asthma, Extrinsic/Atopic Office 09/29/2013 [place],After Cezar Morgan 389.03 Hearing Loss, Visit 10:00a 05/20/07 MD Mari Conductive/Middle Ear 389.10 Hearing Loss, Sensorineural/Unspecified 462-2 Sore Throat Office Visit 09/17/2013 10:30a [place],After 05/20/07 Cezar Morgan 380.10 Otitis Externa MD Mari Acute 389.03 Hearing Loss, Conductive/Middle Ear Office Visit 09/11/2013 10:30a [place],After 05/20/07 Cezar Morgan 380.10 Otitis Externa MD Mari Acute 381.29 Otitis Media Chronic Media Other Office Visit 07/23/2013 [place],After Cezar Morgan 385.32 Cholesteatoma Of 9:45a 05/20/07 MD Mari Middle Ear Office Visit 04/09/2013 [place],After Cezar Morgan 472.0 Rhinitis, Chronic 11:00a 05/20/07 MD Mari 385.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 Office Visit 03/12/2013 [place],After Cezar Morgan 385.32 Cholesteatoma Of 10:30a 05/20/07 MD Mari Middle Ear 389.03 Hearing Loss, Conductive/Middle Ear 389.10 Hearing Loss, Sensorineural/Unspecified 477.8 Rhinitis, Perennial, Allergy Office Visit 01/21/2013 [place],After Rosa Cordova.32 Cholesteatoma Of 4:00p 05/20/07 Mikala [employer] Middle Ear 381.29 Otitis Media Chronic Media Other Office Visit 12/03/2012 [place],After Cezar Morgan 385.32 Cholesteatoma Of 1:45p 05/20/07 MD Mari Middle Ear 381.29 Otitis Media Chronic Media Other 389.03 Hearing Loss, Conductive/Middle Ear Office Visit 08/28/2012 [place],After Rosa Cordova.32 Cholesteatoma Of 2:15p 05/20/07 Mikala [employer] Middle Ear 381.29 Otitis Media Chronic Media Other Office Visit 06/05/2012 [place],After Cezar Morgan 385.32 Cholesteatoma Of 1:30p 05/20/07 MD Mari Middle Ear 381.29 Otitis Media Chronic Media Other 389.03 Hearing Loss, Conductive/Middle Ear 389.10 Hearing Loss, Sensorineural/Unspecified Office Visit 05/21/2012 [place],After Cezar Morgan 385.32 Cholesteatoma Of 11:30a 05/20/07 MD Mari Middle Ear Office Visit 05/07/2012 [place],After Cezar Morgan 381.29 Otitis Media 11:15a 05/20/07 MD Mari Chronic Media Other Office Visit 03/13/2012 [place],After Cezar Morgan 381.29 Otitis Media 3:15p 05/20/07 MD Mari Chronic Media Other Office Visit 03/04/2012 [place],After Art 381.3 Otitis Media, 9:30a 05/20/07 Mikala [employer] Chronic Allergic/Unspecifi ed Office Visit 11/19/2011 [place],After Art, 350.2 Facial Pain, 2:45p 05/20/07 Mikala [employer] Atypical 472.0 Rhinitis, Chronic Office Visit 09/18/2011 3:30p [place],After 05/20/07 Art 477.8 Rhinitis , Mikala [employer] Perennial, Allergy 493.01 Asthma Extrinsic W/ Status Asthmaticus Office 09/05/2011 [place],After Cezar Morgan 389.03 Hearing Loss, Visit 11:15a 05/20/07 MD Mari Conductive/Middle Ear 389.10 Hearing Loss, Sensorineural/Unspecified 384.82 Tympanic Membrane, Atrophic Nonflaccid Office Visit 07/03/2011 4:00p [place],After Art 384.82 Tympanic 05/20/07 Mikala [employer] Membrane, Atrophic Nonflaccid Office Visit 02/22/2011 1:45p [place],After Cezar Morgan 462 Pharyngitis, 05/20/07 MD Mari Acute 384.20 Perforation Of Tympanic Membrane/Unspecified 381.81 Dysfunction Of Eustachian Tube 389.03 Hearing Loss, Conductive/Middle Ear 389.10 Hearing Loss, Sensorineural/Unspecified Office Visit 11/03/2010 9:30a [place],After Art, 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 Mikala [employer] Sinus/Perf Nasal Septum 530.81 Reflux, Gastroesophageal 493.00 Asthma, Extrinsic/Atopic 530.11 Reflux, Esophagitis Office 10/10/2010 [place],After Art, 384.20 Perforation Of Tympanic Visit 2:00p 05/20/07 Mikala [employer] Membrane/Unspecified 477.8 Rhinitis, Perennial, Allergy 493.00 Asthma, Extrinsic/Atopic Office 09/19/2010 [place],After Art, 384.20 Perforation Of Tympanic Visit 1:30p 05/20/07 Mikala [employer] Membrane/Unspecified 381.81 Dysfunction Of Eustachian Tube Office 05/24/2010 [place],After Cezar Morgan 389.03 Hearing Loss, Visit 2:00p 05/20/07 MD Mari Conductive/Middle Ear 389.10 Hearing Loss, Sensorineural/Unspecified 381.81 Dysfunction Of Eustachian Tube 384.20 Perforation Of Tympanic Membrane/Unspecified Office 11/09/2009 [place],After Art, 384.20 Perforation Of Tympanic Visit 11:30a 05/20/07 Mikala [employer] Membrane/Unspecified 381.81 Dysfunction Of Eustachian Tube 350.2 Facial Pain, Atypical Office Visit 10/19/2009 1:30p [place],After 05/20/07 Cezar Morgan 477.8 RhinitisMari MD Perennial, Allergy 384.20 Perforation Of Tympanic Membrane/Unspecified 381.81 Dysfunction Of Eustachian Tube Office Visit 09/30/2009 10:00a [place],After 05/20/07 Cezar Morgan 477.8 RhinitisMari MD Perennial, Allergy 493.00 Asthma, Extrinsic/Atopic 384.20 Perforation Of Tympanic Membrane/Unspecified 389.03 Hearing Loss, Conductive/Middle Ear Office 04/07/2009 [place],After Cezar Morgan 384.20 Perforation Of Tympanic Visit 3:45p 05/20/07 MD Mari Membrane/Unspecified 388.71 Otalgia Otogenic Pain 381.81 Dysfunction Of Eustachian Tube Office 03/30/2009 [place],After Cezar Morgan 384.20 Perforation Of Tympanic Visit 2:30p 05/20/07 MD Mari Membrane/Unspecified 388.71 Otalgia Otogenic Pain Office Visit 03/10/2009 1:45p [place],After Cezar Morgan 388.31 Tinnitus, 05/20/07 MD Mari Subjective 478.1-4 Obstruction Of Nasal Airway Office Visit 12/28/2008 4:00p [place],After Cezar Morgan 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 MD Mari Sinus/Perf Nasal Septum 478.1-4 Obstruction Of Nasal Airway 477.8 Rhinitis, Perennial, Allergy 493.00 Asthma, Extrinsic/Atopic Office Visit 07/28/2008 3:15p [place],After 05/20/07 Cezar Morgan 350.2 Facial Pain, MD Mari Atypical 473.0 Sinusitis, Chronic Maxillary 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, Chronic Ethmoidal 471.8 Polyps, Nasal/Sinus Office Visit 05/04/2008 [place],After Julio Swift 493.01 Asthma Extrinsic 2:45p 05/20/07 Jacobo Arreola W/ Status Asthmaticus 530.81 Reflux, Gastroesophageal 780.57 Apnea, Sleep Not Elsewhere Classified /Unspecified 278.01 Obesity Morbid 429.3 Cardiomegaly Office 04/28/2008 [place],After Julio Swift 493.00 Asthma, Visit 1:48p 05/20/07 Reji Arreola/Atopic Jacobo Office 04/26/2008 [place],After Art 473.0 Sinusitis, Chronic Visit 9:30a 05/20/07 Mikala [employer] Maxillary 530.81 Reflux, Gastroesophageal Office Visit 03/11/2008 [place],After Cezar Morgan 780.57 Apnea, Sleep Not 4:00p 05/20/07 MD Mari Elsewhere Classified /Unspecified 381.81 Dysfunction Of Eustachian Tube 389.03 Hearing Loss, Conductive/Middle Ear Office Visit 02/16/2008 [place],After Cezar Morgan 780.57 Apnea, Sleep Not 10:15a 05/20/07 MD Mari Elsewhere Classified /Unspecified 530.11 Reflux, Esophagitis Office Visit 12/04/2007 [place],After Art 530.81 Reflux, 3:30p 05/20/07 Mikala [employer] Gastroesophageal 477.8 Rhinitis, Perennial, Allergy 493.90 Asthma, Allergic/Unspecified Office Visit 11/04/2007 10:15a [place],After Art, 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 Mikala [employer] Sinus/Perf Nasal Septum 478.1-4 Obstruction Of Nasal Airway 477.8 Rhinitis, Perennial, Allergy Office Visit 10/23/2007 [place],After Art, 478.1-4 Obstruction Of 3:00p 05/20/07 Mikala [employer] Nasal Airway 381.3 Otitis Media, Chronic Allergic/Unspecified 493.00 Asthma, Extrinsic/Atopic 477.0 Rhinitis, Seasonal -Allergic Due To Pollen 477.8 Rhinitis, Perennial, Allergy Office Visit 07/31/2007 10:00a [place],After 05/20/07 Art 477.8 Rhinitis , Mikala [employer] Perennial, Allergy 477.0 Rhinitis, Seasonal -Allergic Due To Pollen Office Visit 07/11/2007 3:30p [place],After 05/20/07 Cezar Morgan 477.8 RhinitisMari MD Perennial, Allergy 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 478.1-4 Obstruction Of Nasal Airway Office Visit 05/15/2007 9:00a [place],After 05/20/07 Cezar Morgan 477.8 RhinitisMari MD Perennial, Allergy Office Visit 04/02/2007 2:15p [place],After 05/20/07 Cezar Morgan 477.8 Mari Leonard MD Perennial, Allergy 471.8 Polyps, Nasal/Sinus 389.2 Hearing Loss, Mixed/Conductive & Sensorineural 381.81 Dysfunction Of Eustachian Tube 474.12 Hypertrophy, Adenoids Office Visit 03/03/2007 2:45p [place],After 05/20/07 Cezar Morgan 473.0 SinusitisMari MD Chronic Maxillary 474.12 Hypertrophy, Adenoids 381.81 Dysfunction Of Eustachian Tube Office Visit 01/31/2007 [place],After Cezar Morgan 381.81 Dysfunction Of 3:15p 05/20/07 MD Mari Eustachian Tube 389.2 Hearing Loss, Mixed/Conductive & Sensorineural 471.8 Polyps, Nasal/Sinus 474.12 Hypertrophy, Adenoids Office Visit 12/02/2006 [place],After Cezar Morgan 381.81 Dysfunction Of 2:30p 05/20/07 MD Mari Eustachian Tube 389.2 Hearing Loss, Mixed/Conductive & Sensorineural Office Visit 04/24/2006 9:45a [place],After Cezar Morgan 471.8 Polyps, 05/20/07 MD Mari Nasal/Sinus 473.0 Sinusitis, Chronic Maxillary 461.0 Sinusitis, Acute Maxillary Office Visit 07/11/2005 1:30p [place],After Cezar Morgan 471.8 Polyps, 05/20/07 MD Mari Nasal/Sinus 780.57 Apnea, Sleep Not Elsewhere Classified /Unspecified 493.0 Code Needs 5TH Digit Office Visit 04/06/2005 1:30p [place],After 05/20/07 Cezar Morgan 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, MD Mari Chronic Ethmoidal 471.8 Polyps, Nasal/Sinus 389.03 Hearing Loss, Conductive/Middle Ear Office Visit 05/09/2004 [place],After Julio Swift 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, 9:30a 05/20/07 Jacobo Arreola Chronic Ethmoidal 471.8 Polyps, Nasal/Sinus Office Visit 02/04/2004 [place],After Dank Rose 780.57 Apnea, Sleep Not 9:45a 05/20/07 Jacobo Pat Elsewhere Classified /Unspecified Office Visit 05/28/2003 [place],After Dank Rose 478.1 Ulcer Of Nasal 11:15a 05/20/07 Jacobo Pat Septum Plan of Treatment Future Appointment(s):07/31/2018 10:30 am - Cezar Guerra MD at [place], After 05/20/811 - Cezar Guerra 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
[2018-05-16 22:05] LABS: ABS Basophils 0 10^3/ul (0-0.2); ABS Eosinophils 0.2 10^3/ul (0-0.6); ABS Lymphocytes 1.6 10^3/ul (1.0-4.8); ABS Monocytes 0.6 10^3/ul (0-0.8); ABS Neutrophils 3.5 10^3/ul (1.5-7.7); ABS Nucleated RBC 0 10^3/ul; Eosinophil % 3.3 %; Hematocrit 41 % (42-52); Hemoglobin 13.8 g/dl (14.0-18.0); Lymphocyte % 27.2 %; Mean Corpuscular HGB Conc 33 g/dl (31-36); Mean Corpuscular Hemoglobin 28 pg (27-31); Mean Corpuscular Volume 85 fL (80-94); Mean Platelet Volume 8.1 fL (7.4-10.4); Nucleated Red Blood Cells % 0.1; Platelet Count 205 10^3/ul (150-450); Red Blood Count 4.89 10^6/ul (4.00-5.40); Red Cell Distribution Width 15 % (10.5-15)
[2018-05-16] MEDS ORDERED: Lidocaine 2% VISCOUS* 15 ML UDC PO ONE (22:08)
[2018-05-16] MEDS ORDERED: Al Hydrox/Mg Hydrox/Simet LIQ* 30 ML UDC PO ONE (22:08)
[2018-05-16 22:21] LABS: Albumin 3.9 g/dL (3.2-5.2); Albumin/Globulin Ratio 1.4 (1-3); BUN/Creatinine Ratio 10.3 (8-20); Calcium 8.9 mg/dL (8.6-10.3); EGFR Non-African American 59.6 (>60); Globulin 2.7 g/dL (2-4); Potassium 3.8 mmol/L (3.5-5.0); Total Bilirubin 0.4 mg/dL (0.2-1.0); Total Protein 6.6 g/dL (6.4-8.9)
[2018-05-17 02:04] VITALS: BP 148/93
== END 2018-05-17 02:05 | disposition home or self-care (01) ==
LOC: ED 21:09
DX: R07.9 Chest pain, unspecified (principal); I10 Essential (primary) hypertension; E66.01 Morbid (severe) obesity due to excess calories; H95.199 Other disorders following mastoidectomy, unspecified ear; Z87.891 Personal history of nicotine dependence; H92.02 Otalgia, left ear; R06.02 Shortness of breath; Z79.01 Long term (current) use of anticoagulants; Z88.0 Allergy status to penicillin
CPT/HCPCS: 36415; 71045; 80053; 83605; 84484; 85025; 85379; 93005; 99284; A9270-GY

== ENCOUNTER 2018-06-26 16:33 | Emergency (ER) | payer MEDICARE, MEDICAID ==
--- NOTE | 2018-06-26 17:06 | ED ---
HPI Chest Pain - HPI Summary HPI Summary: This patient is a 52 year old male brought in by EMS to [facility] with a CC of CP that began today. Along with pain he had diaphoresis, dizziness, and nausea. The patient rates the pain 10/10 in severity. He took 324 ASA TOUR GUIDE. Yesterday the patient had general malaise. Hx TN and CVA, patient does have three stents. He is on xarelto. - History of Current Complaint Chief Complaint: EDChestPainROMI Time Seen by Provider: 06/26/18 16:45 Hx Obtained From: Patient Onset/Duration: Started Hours Ago, Still Present Timing: Constant Initial Severity: Severe Current Severity: Severe Pain Intensity: 10 Pain Scale Used: 0-10 Numeric Chest Pain Location: Diffuse Chest Pain Radiates: No Associated Signs and Symptoms: Positive: Other: - diaphoresis, dizziness, and nausea. - Additional Pertinent History Primary Care Physician: ZURI - Allergy/Home Medications Allergies/Adverse Reactions: Allergies Allergy/AdvReac Type Severity Reaction Status Date / Time amoxicillin [From Augmentin] Allergy Swelling Verified 04/23/18 17:15 clavulanic acid Allergy Swelling Verified 04/23/18 17:15 [From Augmentin] mushroom Allergy Rash Verified 04/23/18 17:15 Penicillins Allergy Anaphylatic Verified 04/23/18 17:15 Shock VINEGAR Allergy Intermediate Hives Uncoded 04/23/18 17:15 PMH/Surg Hx/FS Hx/Imm Hx Endocrine/Hematology History: Reports: Hx Anticoagulant Therapy - xarelto Denies: Hx Diabetes, Hx Sickle Cell Disease, Hx Thyroid Disease Cardiovascular History: Reports: Hx Angina, Hx Cardiac Arrest, Hx Coronary Artery Disease, Hx Hypercholesterolemia, Hx Hypertension, Hx Myocardial Infarction, Other Cardiovascular Problems/Disorders - HEART DISEASE, CARDIAC EVENT MONITOR IMPLANTED Denies: Hx Congestive Heart Failure, Hx Pacemaker/ICD, Hx Valvular Heart Disease Respiratory History: Reports: Hx Asthma, Hx Sleep Apnea Denies: Hx Chronic Obstructive Pulmonary Disease (COPD) GI History: Reports: Hx Gastroesophageal Reflux Disease Denies: Hx Ulcer History: Reports: Hx Renal Disease - cysts bilateral kidneys , Other Problems/Disorders - bilat cyst on kidneys Musculoskeletal History: Reports: Hx Arthritis, Hx Back Problems, Other Musculoskeletal History - RANDEE Denies: Hx Scoliosis Sensory History: Reports: Hx Cataracts - right eye, Hx Contacts or Glasses, Hx Hearing Aid, Hx Hearing Problem Opthamlomology History: Reports: Hx Cataracts - right eye, Hx Contacts or Glasses Neurological History: Reports: Hx Seizures, Hx Transient Ischemic Attacks (TIA) Denies: Hx Dementia, Hx Headaches, Other Neuro Impairments/Disorders Psychiatric History: Reports: Hx Depression Denies: Hx Panic Disorder - Cancer History Hx Chemotherapy: No - Surgical History Surgery Procedure, Year, and Place: APR 2004 sinus [facility] [place] ;. 2007 [place] knee arthroscopy [facility] [place] ;. 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 [facility] [place]. 2014 LEFT REVISION TYMPANOPLASTY/ MAST[place]ECTOMY [facility] [place]. 2011 HEART CATH - NO STENTS ;. 2010 HEART CATH WITH cardiac stents x 4 (PROMUS DRUG-ELUTING STENT OKAY IN NORMAL MODE ONLY, MAX 720 GAUSS/CM @ 1.5T) [facility] [place]. REVEAL LINQ EVENT MONITOR PLACED- 12/15/15- ED CAME OVER W/ FOLUP MACHINE & DID A DOWNLOAD SO THAT NOTHING WOULD BE ERASED Hx Anesthesia Reactions: Yes - SEIZURE LIKE ACTIVITY; REINTUBATION AFTER LEFT EAR 2012 - Immunization History Date of Tetanus Vaccine: UTD Date of Influenza Vaccine: 03/05 Infectious Disease History: No Infectious Disease History: Denies: Hx Clostridium Difficile, Hx Hepatitis, Hx Human Immunodeficiency Virus (HIV), Hx of Known/Suspected MRSA, Hx Shingles, Hx Tuberculosis, Hx Known/ Suspected VRE, Hx Known/Suspected VRSA, History Other Infectious Disease, Traveled Outside the [place] in Last 30 Days - Family History Known Family History: Positive: Cardiac Disease, Hypertension, Diabetes - Social History Alcohol Use: None Hx Substance Use: No Substance Use Type: Reports: None Hx Tobacco Use: Yes Smoking Status (MU): Former Smoker Type: Cigarettes Length of Time of Smoking/Using Tobacco: 10-12 YRS Have You Smoked in the Last Year: No Review of Systems Positive: Skin Diaphoresis, Other - general malaise. Positive: Nausea Neurological: Other - dizziness All Other Systems Reviewed And Are Negative: Yes Physical Exam - Summary Physical Exam Summary: VITAL SIGNS: Reviewed. GENERAL: Patient is a well-developed and obese male who is lying comfortable in the stretcher. Patient is not in any acute respiratory distress. HEAD AND FACE: No signs of trauma. No ecchymosis, hematomas or skull depressions. No sinus tenderness. EYES: PERRLA, EOMI x 2, No injected conjunctiva, no nystagmus. EARS: Hearing grossly intact. Ear canals and tympanic membranes are within normal limits. MOUTH: Oropharynx within normal limits. NECK: Supple, trachea is midline, no adenopathy, no JVD, no carotid bruit, no c- spine tenderness, neck with full ROM. CHEST: Symmetric, no tenderness at palpation LUNGS: Clear to auscultation bilaterally. No wheezing or crackles. CVS: Regular rate and rhythm, S1 and S2 present, no murmurs or gallops appreciated. ABDOMEN: Soft, non-tender. No signs of distention. No rebound no guarding, and no masses palpated. Bowel sounds are normal. EXTREMITIES: FROM in all major joints. One plus LE edema NEURO: Alert and oriented x 3. No acute neurological deficits. Speech is normal and follows commands. SKIN: Dry and warm Triage Information Reviewed: Yes Vital Signs On Initial Exam: Initial Vitals Temp Pulse Resp BP Pulse Ox 97.9 F 64 16 140/73 99 06/26/18 16:39 06/26/18 16:39 06/26/18 16:39 06/26/18 16:39 06/26/18 16:39 Vital Signs Reviewed: Yes - Sayra Coma Scale Best Eye Response: 4 - Spontaneous Best Motor Response: 6 - Obeys Commands Best Verbal Response: 5 - Oriented Coma Scale Total: 15 Diagnostics - Vital Signs Vital Signs Temp Pulse Resp BP Pulse Ox 06/26/18 16:39 97.9 F 64 16 140/73 99 - Laboratory Result Diagrams: 06/26/18 17:01 06/26/18 17:01 Lab Statement: Any lab studies that have been ordered have been reviewed, and results considered in the medical decision making process. - Radiology CXR Radiology Interpretation Completed By: Radiologist Summary of Radiographic Findings: no active cardiopulmonary disease. ED physician has reviewed this report. - CT CT Head CT Interpretation Completed By: Radiologist Summary of CT Findings: No acute intracranial abnormality. Mild ethmoid and sphenoid sinus disease. Dr Pardo has reviewed this report - EKG 1634 Cardiac Rate: NL EKG Rhythm: Sinus Rhythm - at 62 bpm Summary of EKG Findings: no st elevations, multiple PVC s Chest Pain Course/Dx - Course Assessment/Plan: Blood work without any significant abnormality, except for CPK of 305. 2 troponins 4 hours apart as 0.00. Chest x-ray impression: No active cuddy pulmonary disease. Head CT impression: No acute intracranial abnormality. Mild erythema and assessment and sinus disease. In the ED course the patient was given oral hydration. Patient was given Tylenol for the pain. I have low suspicion for an acute coronary syndrome and no suspicion for PE since the patient is taking Xarelto. Heart score is 3 , low suspicion for an acute coronary syndrome. I discussed all the findings and test results with the patient. Patient was instructed to return to the emergency room immediately if any of the symptoms return or worsens. Plan of care was discussed with the patient and understands and agrees. All questions were answered at patient satisfaction. There were no further complaints or concerns. Lung exam before discharge: CTA B/L. Good air exchange. No wheezing or crackles heard. CVS: S1 and S2 present. No murmurs appreciated. Patient is alert and oriented x 3. Patient is hemodynamically stable. Patient will be discharged home with follow up PCP in the next 2-3 days - Chest Pain Differential Diagnosis/HQI/PQRI: Acute TN, ACS, Angina, Aortic Aneurysm, CHF, Chest Wall, GI Disease, Lower Respiratory Infection, Pulmonary Edema - Diagnoses Provider Diagnoses: Atypical chest pain Discharge - Sign-Out/Discharge Documenting (check all that apply): Patient Departure Patient Received Moderate/Deep Sedation with Procedure: No - Discharge Plan Condition: Stable Disposition: HOME Patient Education Materials: Chest Pain (ED) Referrals: Carlin Chu MD [Primary Care Provider] - Additional Instructions: Follow up with your primary care physician in 1-3 days. RETURN TO THE EMERGENCY DEPARTMENT FOR CHANGING OR WORSENING SYMPTOMS. - Billing Disposition and Condition Condition: STABLE Disposition: Home - Attestation Statements Document Initiated by Katelynn: Yes Documenting Scribe: Martin Manzo Provider For Whom Katelynn is Documenting (Include Credential): Carlin Pardo MD Scribe Attestation: Martin Kim scribed for Carlin Pardo MD on 06/27/18 at 2056. Scribe Documentation Reviewed: Yes Provider Attestation: The documentation as recorded by the Martin brown Manzo accurately reflects the service I personally performed and the decisions made by me, Carlin Pardo MD Status of Katelynn Document: Viewed
[2018-06-26 17:10] LABS: ABS Basophils 0 10^3/ul (0-0.2); ABS Eosinophils 0.2 10^3/ul (0-0.6); ABS Lymphocytes 1.5 10^3/ul (1.0-4.8); ABS Monocytes 0.6 10^3/ul (0-0.8); ABS Neutrophils 3.6 10^3/ul (1.5-7.7); ABS Nucleated RBC 0 10^3/ul; Eosinophil % 2.7 %; Hematocrit 44 % (42-52); Hemoglobin 14.5 g/dl (14.0-18.0); Lymphocyte % 25.5 %; Mean Corpuscular HGB Conc 33 g/dl (31-36); Mean Corpuscular Hemoglobin 28 pg (27-31); Mean Corpuscular Volume 84 fL (80-94); Mean Platelet Volume 8.4 fL (7.4-10.4); Nucleated Red Blood Cells % 0; Platelet Count 197 10^3/ul (150-450); Red Blood Count 5.22 10^6/ul (4.00-5.40); Red Cell Distribution Width 15 % (10.5-15)
--- OUTSIDE RECORDS SUMMARY | 2018-06-26 17:24 | XMS REPORT | Continuity of Care Document ---
:1965 External Reference #:[id number] Author Name Cezar Guerra MD Address [address] [place] [address] Care Team Providers Name Role Phone Carlin Chu MD Care Team Information Thoracic Surgeon Unavailable Carlin Chu MD Primary Care Physician Unavailable Payers Type Date Identification Numbers Payment Provider Subscriber Effective: Policy Number: [id number] Medicare-[facility] Govn Cas Glaser 1997 SRVS PayID: [id number] 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 asthmaticus Onset: 02/23/2011 Peptic reflux disease Mikala Cordova 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 Onset: 02/23/2011 Allergic rhinitis AntonioGrant forddre 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 Onset: 04/15/2018 Impacted cerumen Marguerite Muller PA-C Active Onset: 04/15/2018 Chronic tympanitis Marguerite Muller PA-C Active Family History Date [...] Form Strength Qnty SIG Indications Ordering Provider Clotrimazole 05/29 Active Solution 1% 30ml 4 drops to left ear Eddie Guerra, twice a day for 14 days Ciprofloxacin HCL 05/29 Active Tablets 500mg 20tab 1 tablet s twice a Eddie Guerra, day for 10 MD days Omeprazole 11/[address] 40mg 60cap [...] Unknown Nitroglycerin Active ?mg prn Only Kimberley, Carlin SANTIAGO Ranexa Active Tablets ER 500mg 1 po bid Unknown 12HR Atorvastatin Active Tablets 40mg 1 po qd Unknown Calcium Klor-Con M20 Active Tablets ER 20Meq Stefek,Pa / ul M.D. Metoprolol Active Tablets ER 50mg Unknown Succinate ER 24HR Triamterene/Bristow Active Capsules 37.5-25mg Kimberley, chlorothiazide Carlin SANTIAGO Advair Diskus Active Aerosol 250-50mcg Kimberley, /0000 /Dose Carlin SANTIAGO Proair HFA Active Aerosol 108(90Bas Kimberley, / e) Carlin SANTIAGO mcg/Act Atorvastatin Active Tablets 20mg Stefek,Pa Calcium ul M.D. Clopidogrel Active Tablets 75mg Kimberley, Bisulfate aCrlin SANTIAGO Xarelto Active Tablets 20mg Kimberley, Carlin [...] 4 drops ml left ear Eddie Guerra - twice a 01/07 day for days Methylprednisolon 08/13 Hx TBPK 4mg 1pack take as Cezar directed Pipe Fernando MD 01/07 Mupirocin 04/26 Hx Ointment 2% 22gm apply to both Pipe Fernando nostril 01/07 twice a day Triamcinolone 05/25 Hx Cream 0.1% 15gm Apply to Cezar Acet left ear Pipe Fernando twice 01/07 daily for 1 week Percocet 05/04 Hx Tablets 5-325mg 30tab 1-2 tabs s by mouth Eddie Guerra, - every 4-6 04/15 hours needed for pain Levofloxacin 05/04 Hx Tablets 500mg 10tab 1 by mouth Cezar s every day Eddie Guerra, - 01/07 Ciprodex 09/11 Hx Suspension 0.3-0.1% 1Bott 4 drops to le left ears Eddie Guerra, - twice a rebate rx bin: [id number] rxpcn: loyalty rxgrp:[id number] 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: ([id number]) id#[id number] 25 Ofloxacin 12/17 Hx Solution 0.3% 1unit 4 drops to Julio Swift s affected Strominge - ear daily r, Jacobo 03/12 Ciprodex 12/15 Hx Suspension 0.3-0.1% 2unit 4 drops Julio Swift s infected Strominge - ear bid rJacobo 03/12 rebate rxbin: [id number] rxpcn: loyalty rxgrp: [id number] 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: (17331) id: [id number] Oxycodone/Acetami 12/03 Hx Tablets 5-325mg 30tab 1-2 tabs Julio chacon s by mouth Strominge - every 4-6 Jacobo akbar 04/15 hours needed for pain Ciprodex 08/28 Hx Suspension 0.3-0.1% 2unit 4 drops 385.32 Julio Swift s infected Strominge - ear bid rJacobo 12/02 rebate rxbin: [id number] rxpcn: loyalty rxgrp: [id number] 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 Orlando s sprays in Strominge - each Jacobo akbar 04/15 nostril times a day as needed for rhinitis Bacitracin 11/18 Hx 1Tube apply to 472.0 Julio N. Ointment rim of Tani - nose both Jacobo akbar 12/02 sides in the am and the pm. Flovent HFA 09/17 Hx Aerosol 110mcg/Ac 1unit 2 puff bid 493.01 Julio Swift t s Tani akbar M.D. 12/02 Fluticasone Nasal 09/20 Hx 50mcg 1unit 2 sprays Cezar s each side Eddie Guerra, - bid 04/15 Omnaris 09/19 Hx Suspension 50mcg/Act 2 sprays Julio Swift s each Strominge - nostril Jacobo akbar 09/17 Percocet 06/30 Hx Tablets 5-325mg 30tab 1-2 tabs s by mouth Eddie Guerra, - every 4-6 01/07 hours needed for pain Ciprofloxacin HCL 06/30 Hx Tablets 500mg 14tab 1 tablet s twice a Eddie Guerra, - day for 7 Astepro Nasal 09/16 Hx 0.15% 205 1unit 2 sprays Julio Bardales mcg s once a day Tani akbar M.D. 04/15 Aciphex 04/[address] 20mg 30tab 1 po Daily Julio Swift /2008 s Tani akbar M.D. 05/24 Mucinex DM 03/10 Hx Tablets ER 60-1200 5Days 1 op qd 478.1-4 Cezar Maximum Strength /2008 12HR Pipe Fernando MD 09/30 Fexofenadine HCL [...] 875mg 14Day 1 po bid 473.0 Julio Sujata. s with food Tani akbar M.D. 05/04 [...] Tabs PO 471.8 Cezar s Every Day Pipe Fernando X4 D, Then 03/03 3 Tabs PO /2006 Every Day X 4D, Then 2 Tab PO Daily X4D, Then 1 Tab PO Daily X4D Nasacort Aq 04/24 Hx Suspension 55mcg/Act 1unit 2 Sprays 471.8 Cezar Intranasal [place] /2005 uation s Each E. Mari, - Nostril qd 05/04 Levaquin 04/24 Hx Tablets 500mg 10tab 1 Tablet 471.8 s By Mouth Eddie Guerra - Daily 03/03 Finished Nexium 10/24 Hx Unknown /2005 - 05/04 Singulair 07/11 Hx Tablets 10mg 30tab 1 PO qd 471.8 Cezar s Eddie Guerra - 11/03 Nasacort Aq 09/13 Hx Suspension 55McG/Act 1unit 2 sprays 473.2 Cezar Intranasal [place] /2004 uation s each ESandie Guerra, - nostril qd 12/02 Clopidrogel Hx Tablets 75mg Unknown / - 04/15 Isosorbide Hx 60mg 1 po qd Unknown Dinitrate SA / - 04/15 Simvastatin Hx ?mg oen po qd Kimberley, / Carlin SANTIAGO - 04/15 Lisinopril Hx Unknown /0000 - 12/02 Pepcid ac Ez Hx Unknown Chews Maximum /0000 Strength - 12/02 Sertraline HCL Hx ?mg one po qd Kimberley, / Carlin SANTIAGO - 04/15 Triamterene/Bristow Hx Unknown chlorothiazide /04/30 Clopidogrel Hx Tablets 75mg StefeshermanPa Bisulfate / ul M.D. - 04/15 Fluticasone Hx Suspension 50mcg/Act Unknown Propionate / - 04/15 Famotidine Hx Tablets 20mg Unknown / - 04/15 Immunizations CPT Code Status Date Vaccine Lot # [id number] Ordered 02/17/2015 Influenza Virus Vaccine, 3 Years Of Age And Above, Intramuscular 30021 Given Unknown Influenza Virus Vaccine, 3 Years Of Age And Above, Intramuscular Vital Signs Date Vital Result Comment 06/06/2018 10:13am Weight 347.00 lb Weight 157.399 kg Height 69 inches 5'9" Height in cm's 175.3 cm BMI (Body Mass Index) 51.2 kg/m2 05/29/2018 9:23am Weight 347.00 lb Weight 157.399 kg Height 69 inches 5'9" Height in cm's 175.3 cm BMI (Body Mass Index) 51.2 kg/m2 05/23/2018 11:07am Weight 347.00 lb Weight 157.399 kg Height 69 inches 5'9" Height in cm's 175.3 cm BMI (Body Mass Index) 51.2 kg/m2 05/01/2018 11:34am Weight 347.00 lb Weight 157.399 [...] H/L Range Note CBC No Diff 05/04/2015 [facility] White Blood 5.2 10^3 /uL N 3.5-10.8 1 c/o Department [place] [address] [phone] Red Blood Count 5.43 10^6/uL High 4.0-5.4 Hemoglobin 15.1 g/dL N 14.0-18.0 Hematocrit 47 % N 42-52 Mean Corpuscular Volume 87 fL N 80-94 Mean Corpuscular Hemoglobin 28 pg N 27-31 Mean Corpuscular HGB Conc 32 g/dL N 31-36 Red Cell Distribution Width 15 % N 10.5-15 Platelet Count 232 10^3/uL N 150-450 Mean Platelet Volume 8 um3 N 7.4-10.4 Inr/Protime 05/04/2015 [facility] Inr 1.05 N 0.89- 1.11 c/o Department of Laboratories [place], [place] [id number] [phone] Laboratory test 05/04/2015 [facility] Partial 45.0 High 26.0-36.3 2 finding c/o Department of Laboratories [place] [address] Time PTT [phone] Basic Metabolic 05/04/2015 [facility] Sodium 141 mmol/ L N 133-145 Panel c/o Department [place] [address] [phone] Potassium 3.8 mmol/L N 3.5-5.0 Chloride 106 [...] N >60 3 Laboratory test finding 12/06/2012 [facility] Inr 0.96 0.87-0.97 4 c/o Department of Laboratories [place] [id number] [phone] Activated Partial Thrombo Time 44.1 seconds High 22.18-37.18 5 Basic Metabolic 12/02/2012 [facility] Sodium 140 mmol/ L 133-145 Panel c/o Department [place] [address] [phone] Potassium 4.3 mmol/L 3.5-5.0 Chloride 104 mmol/L 101-111 Co2 Carbon Dioxide 30.0 mmol/L 22-32 Anion Gap 6.0 mmol/L 2-11 Glucose 111 mg/dL High 70-100 Blood Urea Nitrogen 14 mg/dL 6-24 Creatinine 1.30 mg/dL 0.50-1.40 BUN/Creatinine Ratio 10.8 8-20 Calcium 9.7 mg/dL 8.1-9.9 Egfr Non- 58.7 >60 Egfr 75.5 >60 6 CBC Auto 07/23/2012 [facility] White Blood 4.0 10^3/ uL Low 4.8-10.8 Diff c/o Department [place] [address] [phone] Red Blood Count 4.93 10^6/uL 4.0-5.4 Hemoglobin [...] Blood Cells % 0.2 Basic Metabolic 07/23/2012 [facility] Sodium 135 mmol/ L 133-145 Panel c/o Department [place] [address] [phone] Potassium 3.6 mmol/L 3.5-5.0 Chloride 102 mmol/L 101-111 Co2 Carbon Dioxide 30.0 mmol/L 22-32 Anion Gap 3.0 mmol/L 2-11 Glucose 80 mg/dL 70-100 Blood Urea Nitrogen 11 mg/dL 6-24 Creatinine 1.10 mg/dL 0.50-1.40 BUN/Creatinine Ratio 10.0 8-20 Calcium 9.0 mg/dL 8.1-9.9 Egfr Non- 71.4 >60 Egfr 91.9 >60 7 Laboratory test 04/28/2008 [facility] Troponin-I (TnI) 0.04 NG/ML 0-0.06 8 finding c/o Department [place] [address] [phone] Stat CMP 04/28/2008 [facility] Sodium 136 mmol/L 135-145 c/o Department [place] [address] [phone] Potassium 3.9 mmol/L 3.5-5.0 Chloride 104 mmol/L [...] (Sgot) 31 U/L 12-42 CBC With 04/28/2008 [facility] White Blood 6.7 CUMM 4.8-10.8 Electronic Diff c/o Department of [place] [address] [phone] Red Cell Count 5.28 CUMM 4.6-6.2 Hemoglobin [...] Abs Basophils 0 0-0.2 Laboratory test 04/26/2008 [facility] Culture FEW COLONIES 12 finding c/o Department of Laboratories Sensitivity OF <SEE NOTE> [place] [address] [phone] 1 SDS 05/11 2 SDS 05/11 3 [...] <0.06 ng/ml NOT SUPPORTIVE OF DIAGNOSIS OF NE 0.06 - 0.50 ng/ml INDETERMINATE: SUGGEST SERIAL STUDIES IF CLINICALLY INDICATED. > 0.5 ng/ml CONSISTENT WITH DIAGNOSIS OF NE . 9 Anion gap measurement may be of limited value in the presence of any alkalosis, especially in a combined acid base disorder. . 10 Note change in reference range as of 01/08/08. The change was based on recommendations from the [place] [employer]. 11 Please note change in reference range effective 07 . 12 FEW COLONIES OF NORMAL RESPIRATORY MARY BETH Procedures Date Code Description Status 05/23/2018 91350 Binocular Microscopy Completed 04/15/2018 60937 Debridement Of Mastoid Cavity, Simple Completed 08/13/2017 05686 Nasal Endoscopy, Diagnostic Completed 03/21/2016 19500 Nasal Endoscopy, Diagnostic Completed 05/11/2015 16449 Revision Mastoidectomy Resulting In Modified Radical Completed Mastoidctomy 01/28/2014 45722 Fiberoptic Laryngoscopy Completed 09/29/2013 67103 Tympanometry Completed 09/29/2013 18270 Comprehensive Audiogram Completed 03/12/2013 05458 Tympanometry Completed 03/12/2013 31864 Comprehensive Audiogram Completed 01/21/2013 77747 Binocular Microscopy Completed 12/09/2012 05983 Tympanomastoidectomy W/Ossicular Chain Completed 09/25/2012 20618 Medical Records Completed 08/28/2012 34079 Tympanometry Completed 08/28/2012 08688 Comprehensive Audiogram Completed 06/05/2012 04262 Comprehensive Audiogram Completed 06/05/2012 08995 Tympanometry Completed 03/04/2012 13340 Binocular Microscopy Completed 11/19/2011 93435 Nasal Endoscopy, Diagnostic Completed 07/06/2011 05065 Tympanometry Completed 07/06/2011 83256 Comprehensive Audiogram Completed 07/03/2011 95832 Tympanometry Completed 07/03/2011 01515 Binocular Microscopy Completed 11/03/2010 70471 Fiberoptic Laryngoscopy Completed 09/19/2010 92950 Tympanometry Completed 05/24/2010 18203 Tympanometry Completed 05/24/2010 35428 Comprehensive Audiogram Completed 11/09/2009 84825 Tympanometry Completed 04/07/2009 22793 Tympanometry Completed 03/30/2009 03760 Binocular Microscopy Completed 03/10/2009 40328 Comprehensive Audiogram Completed 03/10/2009 87028 Tympanometry Completed 04/26/2008 00656 Nasal Endoscopy, Diagnostic Completed 01/15/2008 75068 Fiberoptic Laryngoscopy Completed 01/05/2008 18059 No Show Fee Completed 11/04/2007 11774 Demonstration/Eval. Of Patient Utilization Of Completed Spacer/Nebulizer 11/04/2007 22957 Respiratory Flow Volume Loop Completed 11/04/2007 99675 Bronchospasm Evaluation Completed 07/24/2007 62208 Prick Test Completed 07/24/2007 73851 Prick Test Completed 07/11/2007 25295 Nasal Endoscopy, Diagnostic Completed 04/02/2007 91247 Nasopharyngoscopy Completed 01/31/2007 04574 Nasal Endoscopy, Diagnostic Completed 01/31/2007 12224 Comprehensive Audiogram Completed 01/31/2007 27863 Comprehensive Audiogram Completed 01/31/2007 25480 Tympanometry Completed 01/31/2007 70821 Tympanometry Completed 12/24/2006 93489 Tympanostomy W/Tube Local Or Topical Anes. Completed 12/02/2006 60387 Tympanometry Completed 12/02/2006 46038 Tympanometry Completed 12/02/2006 22275 Comprehensive Audiogram Completed 12/02/2006 71275 Comprehensive Audiogram Completed 10/26/2005 78137 Nasal Endoscopy, Diagnostic Completed 04/06/2005 89857 Nasal Endoscopy, Diagnostic Completed 09/13/2004 21778 Nasal Endoscopy W/ Debridement Completed 05/24/2004 66775 Nasal Endoscopy W/ Debridement Completed 05/02/2004 97860 Nasal Endoscopy W/Maxllary Antrostomy W/Excision Of Poylp Completed 05/02/2004 79175 Nasal Endoscopy With Ethmoidectomy, Partial Completed 04/28/2004 42187 Nasal Endoscopy, Diagnostic Completed 03/27/2004 32866 Nasal Endoscopy, Diagnostic Completed 03/01/2004 87303 Nasal Endoscopy, Diagnostic Completed 07/01/2003 96865 No Show Fee Completed Encounters Type Date Location Provider Dx Diagnosis Office Visit 06/12/2018 Cassie Fragoso H70.92 Unspecified 11:30a 05/20/07 MD Mari mastoiditis, left ear Office Visit 06/06/2018 Cassie Fragoso H70.92 Unspecified 10:15a 05/20/07 MD Mari mastoiditis, left ear Office Visit 06/02/2018 [place] Cezar Morgan H70.92 Unspecified 1:30p 05/20/07 MD Mari mastoiditis, left ear Office Visit 05/29/2018 [place] Cezar Carpio. Cholesteatoma of 9:45a 05/20/07 MD Mari tympanum, left ear Office Visit 05/23/2018 [facility] Shirin Fuentes.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 of 10:30a 05/20/07 PA-C tympanum, left ear Office Visit 05/01/2018 [place] Cezar Carpio. Cholesteatoma of 11:30a 05/20/07 MD Mari tympanum, left ear Office Visit 01/07/2018 [place] Cezar Carpio. Cholesteatoma of 10:30a 05/20/07 MD Mari tympanum, left ear J31.0 Chronic rhinitis G50.1 Atypical facial pain Office Visit 10/04/2017 [place] Cezar Carpio. Cholesteatoma of 10:00a 05/20/07 MD Mari tympanum, left ear Office Visit 06/06/2017 [place] Cezar Carpio. Cholesteatoma of 11:15a 05/20/07 MD Mari tympanum, left ear Office Visit 02/15/2017 [place] Cezar Carpio. Cholesteatoma of 11:00a 05/20/07 MD Mari tympanum, left ear H72.2x1 Other marginal perforations of tympanic membrane, right ear Office Visit 08/28/2016 [place],[facility] Cezar Carpio. Cholesteatoma of 10:30a 05/20/07 MD Mari tympanum, left ear Office Visit 04/26/2016 [place] Cezar Morgan J31.0 Chronic rhinitis 2:45p 05/20/07 MD Mari 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, left ear Office Visit 12/30/2015 [place] Cezar Carpio. Cholesteatoma of 11:00a 05/20/07 MD Mari tympanum, left ear H60.11 Cellulitis of right external ear Office Visit 09/29/2015 [place] Cezar Morgan H71.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 of 11:00a 05/20/07 MD Mari tympanum, left ear Office Visit 05/25/2015 [place] Cezar Morgan L23.3 Allergic contact 3:45p 05/20/07 MD Mari dermatitis due to drugs in contact w skin Office Visit 03/24/2015 [place] Cezar Morgan H71.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 05/20/07 MD Mari tympanum, left ear Office Visit 03/17/2015 [place] Cezar Morgan H71.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 of 10:30a 05/20/07 MD Mari tympanum, left ear Office Visit 03/03/2015 [place] Cezar Morgan 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, 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, left ear Office Visit 12/31/2014 10:15a [place] 05/20/07 Cezar Morgan 381.29 Otitis Media MD Mari Chronic Media Other 385.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 Office Visit 10/28/2014 3:45p [place],[facility] 05/20/07 Cezar Morgan 381.29 Otitis Media MD Mari Chronic Media Other 385.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 Office Visit 04/01/2014 9:45a [place],After 05/20/07 Cezar Morgan 381.29 Otitis Media MD Mari Chronic Media Other Office Visit 01/28/2014 10:45a [place],After 05/20/07 Cezar Morgan 381.29 Otitis Media MD Mari Chronic Media Other 787.20 Dysphagia, Unspecified Office Visit 11/04/2013 10:15a [place],After 05/20/07 Cezar Guerra MD 786.2 Cough 787.20 Dysphagia, Unspecified 493.00 Asthma, Extrinsic/Atopic Office 09/29/2013 [place] Cezar Morgan 389.03 Hearing Loss, Visit 10:00a 05/20/07 MD Mari Conductive/Middle Ear 389.10 Hearing Loss, Sensorineural/Unspecified 462-2 Sore Throat Office Visit 09/17/2013 10:30a [place],After 05/20/07 Cezar Morgan 380.10 Otitis Externa MD Mari Acute 389.03 Hearing Loss, Conductive/Middle Ear Office Visit 09/11/2013 10:30a [place],After 05/20/07 Cezar Morgan 380.10 Otitis Externa MD Mari Acute 381.29 Otitis Media Chronic Media Other Office Visit 07/23/2013 [place],[facility] Cezar Morgan 385.32 Cholesteatoma Of 9:45a 05/20/07 MD Mari Middle Ear Office Visit 04/09/2013 [place],After Cezar Morgna 472.0 Rhinitis, Chronic 11:00a 05/20/07 MD Mari 385.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 Office Visit 03/12/2013 [place],After Cezar Morgan 385.32 Cholesteatoma Of 10:30a 05/20/07 MD Mari Middle Ear 389.03 Hearing Loss, Conductive/Middle Ear 389.10 Hearing Loss, Sensorineural/Unspecified 477.8 Rhinitis, Perennial, Allergy Office Visit 01/21/2013 [place],After Rosa Cordova.32 Cholesteatoma Of 4:00p 05/20/07 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 Middle Ear 381.29 Otitis Media Chronic Media Other Office Visit 12/03/2012 [place] Cezar Morgan 385.32 Cholesteatoma Of 1:45p 05/20/07 MD Mari Middle Ear 381.29 Otitis Media Chronic Media Other 389.03 Hearing Loss, Conductive/Middle Ear Office Visit 08/28/2012 [place],After Rosa Cordova.32 Cholesteatoma Of 2:15p 05/20/07 Mikala 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 Middle Ear 381.29 Otitis Media Chronic Media Other Office Visit 06/05/2012 [place],After Cezar Morgan 385.32 Cholesteatoma Of 1:30p 05/20/07 MD Mari Middle Ear 381.29 Otitis Media Chronic Media Other 389.03 Hearing Loss, Conductive/Middle Ear 389.10 Hearing Loss, Sensorineural/Unspecified Office Visit 05/21/2012 [place],[facility] Cezar Morgan 385.32 Cholesteatoma Of 11:30a 05/20/07 MD Mari Middle Ear Office Visit 05/07/2012 [place],[facility] Cezar Morgan 381.29 Otitis Media 11:15a 05/20/07 MD Mari Chronic Media Other Office Visit 03/13/2012 [place],After Cezar Morgan 381.29 Otitis Media 3:15p 05/20/07 MD Mari Chronic Media Other Office Visit 03/04/2012 [place],After Atr 381.3 Otitis Media, 9:30a 05/20/07 Mikala 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 Chronic Allergic/Unspecifi ed Office Visit 11/19/2011 [place],After Art 350.2 Facial Pain, 2:45p 05/20/07 Mikala 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 Atypical 472.0 Rhinitis, Chronic Office Visit 09/18/2011 3:30p [place],After 05/20/07 Art 477.8 Rhinitis , Mikala 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 Perennial, Allergy 493.01 Asthma Extrinsic W/ Status Asthmaticus Office 09/05/2011 [place] Cezar Morgan 389.03 Hearing Loss, Visit 11:15a 05/20/07 MD Mari Conductive/Middle Ear 389.10 Hearing Loss, Sensorineural/Unspecified 384.82 Tympanic Membrane, Atrophic Nonflaccid Office Visit 07/03/2011 4:00p [place],After Art 384.82 Tympanic 05/20/07 Mikala 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 Membrane, Atrophic Nonflaccid Office Visit 02/22/2011 1:45p [place],After Cezar Morgan 462 Pharyngitis, 05/20/07 MD Mari Acute 384.20 Perforation Of Tympanic Membrane/Unspecified 381.81 Dysfunction Of Eustachian Tube 389.03 Hearing Loss, Conductive/Middle Ear 389.10 Hearing Loss, Sensorineural/Unspecified Office Visit 11/03/2010 9:30a [place],After Art 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 Mikala 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 Sinus/Perf Nasal Septum 530.81 Reflux, Gastroesophageal 493.00 Asthma, Extrinsic/Atopic 530.11 Reflux, Esophagitis Office 10/10/2010 [place],After Art 384.20 Perforation Of Tympanic Visit 2:00p 05/20/07 Mikala 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 Membrane/Unspecified 477.8 Rhinitis, Perennial, Allergy 493.00 Asthma, Extrinsic/Atopic Office 09/19/2010 [place],After Art 384.20 Perforation Of Tympanic Visit 1:30p 05/20/07 Mikala 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 Membrane/Unspecified 381.81 Dysfunction Of Eustachian Tube Office 05/24/2010 [place],After Cezar Morgan 389.03 Hearing Loss, Visit 2:00p 05/20/07 MD Mari Conductive/Middle Ear 389.10 Hearing Loss, Sensorineural/Unspecified 381.81 Dysfunction Of Eustachian Tube 384.20 Perforation Of Tympanic Membrane/Unspecified Office 11/09/2009 [place],After Art 384.20 Perforation Of Tympanic Visit 11:30a 05/20/07 Mikala 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 Membrane/Unspecified 381.81 Dysfunction Of Eustachian Tube 350.2 Facial Pain, Atypical Office Visit 10/19/2009 1:30p [place],After 05/20/07 Cezar Morgan 477.8 RhinitisMari MD Perennial, Allergy 384.20 Perforation Of Tympanic Membrane/Unspecified 381.81 Dysfunction Of Eustachian Tube Office Visit 09/30/2009 10:00a [place],After 05/20/07 Cezar Morgan 477.8 RhinitisMari MD Perennial, Allergy 493.00 Asthma, Extrinsic/Atopic 384.20 Perforation Of Tympanic Membrane/Unspecified 389.03 Hearing Loss, Conductive/Middle Ear Office 04/07/2009 [place],After Cezar Morgan 384.20 Perforation Of Tympanic Visit 3:45p 05/20/07 MD Mari Membrane/Unspecified 388.71 Otalgia Otogenic Pain 381.81 Dysfunction Of Eustachian Tube Office 03/30/2009 [place],After Cezar Morgan 384.20 Perforation Of Tympanic Visit 2:30p 05/20/07 MD Mari Membrane/Unspecified 388.71 Otalgia Otogenic Pain Office Visit 03/10/2009 1:45p [place],After Cezar Morgan 388.31 Tinnitus, 05/20/07 MD Mari Subjective 478.1-4 Obstruction Of Nasal Airway Office Visit 12/28/2008 4:00p [place],After Cezar Morgan 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 MD Mari Sinus/Perf Nasal Septum 478.1-4 Obstruction Of Nasal Airway 477.8 Rhinitis, Perennial, Allergy 493.00 Asthma, Extrinsic/Atopic Office Visit 07/28/2008 3:15p [place],After 05/20/07 Cezar Morgan 350.2 Facial Pain, MD Mari Atypical 473.0 Sinusitis, Chronic Maxillary 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, Chronic Ethmoidal 471.8 Polyps, Nasal/Sinus Office Visit 05/04/2008 [place],After Julio Swift 493.01 Asthma Extrinsic 2:45p 05/20/07 Jacobo Arreola W/ Status Asthmaticus 530.81 Reflux, Gastroesophageal 780.57 Apnea, Sleep Not Elsewhere Classified /Unspecified 278.01 Obesity Morbid 429.3 Cardiomegaly Office 04/28/2008 [place],After Julio Swift 493.00 Asthma, Visit 1:48p 05/20/07 Reji Arreola/Ponce Centeno Office 04/26/2008 [place],After Art 473.0 Sinusitis, Chronic Visit 9:30a 05/20/07 Mikala 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 Maxillary 530.81 Reflux, Gastroesophageal Office Visit 03/11/2008 [place],After Cezar Morgan 780.57 Apnea, Sleep Not 4:00p 05/20/07 MD Mari Elsewhere Classified /Unspecified 381.81 Dysfunction Of Eustachian Tube 389.03 Hearing Loss, Conductive/Middle Ear Office Visit 02/16/2008 [place],After Cezar Morgan 780.57 Apnea, Sleep Not 10:15a 05/20/07 MD Mari Elsewhere Classified /Unspecified 530.11 Reflux, Esophagitis Office Visit 12/04/2007 [facility],After Art 530.81 Reflux, 3:30p 05/20/07 Mikala 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 Gastroesophageal 477.8 Rhinitis, Perennial, Allergy 493.90 Asthma, Allergic/Unspecified Office Visit 11/04/2007 10:15a [facility],After Art 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 Mikala 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 Sinus/Perf Nasal Septum 478.1-4 Obstruction Of Nasal Airway 477.8 Rhinitis, Perennial, Allergy Office Visit 10/23/2007 [facility],After Tripp Cordova8.1-4 Obstruction Of 3:00p 05/20/07 Mikala 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 Nasal Airway 381.3 Otitis Media, Chronic Allergic/Unspecified 493.00 Asthma, Extrinsic/Atopic 477.0 Rhinitis, Seasonal -Allergic Due To Pollen 477.8 Rhinitis, Perennial, Allergy Office Visit 07/31/2007 10:00a [facility],After 05/20/07 Art 477.8 Rhinitis , Mikala 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 Perennial, Allergy 477.0 Rhinitis, Seasonal -Allergic Due To Pollen Office Visit 07/11/2007 3:30p [facility],After 05/20/07 Cezar Morgan 477.8 RhinitisMari MD Perennial, Allergy 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 478.1-4 Obstruction Of Nasal Airway Office Visit 05/15/2007 9:00a [facility],After 05/20/07 Cezar Morgan 477.8 RhinitisMari MD Perennial, Allergy Office Visit 04/02/2007 2:15p [facility],After 05/20/07 Cezar Morgan 477.8 RhinitisMari MD Perennial, Allergy 471.8 Polyps, Nasal/Sinus 389.2 Hearing Loss, Mixed/Conductive & Sensorineural 381.81 Dysfunction Of Eustachian Tube 474.12 Hypertrophy, Adenoids Office Visit 03/03/2007 2:45p [facility],After 05/20/07 Cezar Morgan 473.0 Sinusitis, MD Mari Chronic Maxillary 474.12 Hypertrophy, Adenoids 381.81 Dysfunction Of Eustachian Tube Office Visit 01/31/2007 [facility],After Cezar Morgan 381.81 Dysfunction Of 3:15p 05/20/07 MD Mari Eustachian Tube 389.2 Hearing Loss, Mixed/Conductive & Sensorineural 471.8 Polyps, Nasal/Sinus 474.12 Hypertrophy, Adenoids Office Visit 12/02/2006 [facility],After Cezar Morgan 381.81 Dysfunction Of 2:30p 05/20/07 MD Mari Eustachian Tube 389.2 Hearing Loss, Mixed/Conductive & Sensorineural Office Visit 04/24/2006 9:45a [facility],After Cezar E. 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 Chronic Ethmoidal 471.8 Polyps, Nasal/Sinus Office Visit 02/04/2004 [facility],After Dank Rose 780.57 Apnea, Sleep Not 9:45a 05/20/07 Jacobo Pat Elsewhere Classified /Unspecified Office Visit 05/28/2003 [facility],After Dank Rose 478.1 Ulcer Of Nasal 11:15a 05/20/07 Jacobo Pat Septum Plan of Treatment Future Appointment(s):08/12/2018 10:30 am - Cezar Guerra MD at [facility], After 05/20/802 10:30 am - Cezar Guerra MD at [facility],After 05/20/800 - Cezar Guerra MDH70.92 Unspecified mastoiditis, left ear
--- OUTSIDE RECORDS SUMMARY | 2018-06-26 17:27 | XMS REPORT | Continuity of Care Document ---
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 [place] [address] Policy Number: [id number] Medicaid/C Cas Glaser Group Number: [id number] Medicare Primary Group Name: [id number] PayID: [id number] [place] [address] Advance Directives Description No Information Available Problems [...] 02/23/2011 Disorder of nasal cavity Mikala Cordova [employer] Active Onset: 02/23/2011 Gastroesophageal reflux disease Mikala Cordova [employer] Active Onset: 02/23/2011 Extrinsic asthma without status Mikala Cordova [employer] Active asthmaticus Onset: 02/23/2011 Peptic reflux disease Mikala Cordova [employer] Active Onset: 02/23/2011 Allergic rhinitis AntonioGrant forddre [employer] Active Onset: 04/15/2018 Impacted cerumen Marguerite Muller [...] bid for 1 Strominge month for Jacobo akabr esophagiti s Advair Hfa 10/22 Active Aerosol [...] Tablets ER 50mg Unknown Succinate ER 24HR Triamterene/Lena Active Capsules 37.5-25mg Kimberley, chlorothiazide Carlin SANTIAGO [...] TBPK 4mg 1pack take as Cezar directed Ppie Fernando MD 01/07 Mupirocin 04/26 Hx Ointment [...] Guerra, - twice a rebate rx bin: [id number] rxpcn: loyalty rxgrp:[id number] 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: (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) id#[id number] 25 Ofloxacin 12/17 Hx Solution 0.3% 1unit 4 drops to Julio Swift s affected Strominge - ear daily r, Jacobo 03/12 Ciprodex 12/15 Hx Suspension 0.3-0.1% 2unit 4 drops Julio Swift s infected Strominge - ear bid rJacobo 03/12 rebate rxbin: [id number] rxpcn: loyalty rxgrp: [id number] 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: ([id number]) id: [id number] Oxycodone/Acetami 12/03 Hx Tablets 5-325mg 30tab 1-2 tabs Julio chacon s by mouth Strominge - every 4-6 Jacobo akbar 04/15 hours needed for pain Ciprodex 08/28 Hx Suspension 0.3-0.1% 2unit 4 drops 385.32 Julio Swift s infected Strominge - ear bid rJacobo 12/02 rebate rxbin: [id number] rxpcn: loyalty rxgrp: [id number] 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 Covelo s sprays in Strominge - each Jacobo [...] 30tab 1-2 tabs s by mouth Eddie Geurra, - every 4-6 01/07 hours needed for [...] 55mcg/Act 1unit 2 Sprays 471.8 Cezar Intranasal [place] /2005 uation s Each E. Mari, - Nostril qd 05/04 Levaquin 04/24 Hx Tablets 500mg 10tab 1 Tablet 471.8 s By Mouth Eddie Guerra - Daily 03/03 Finished Nexium 10/24 Hx Unknown /2005 - 05/04 Singulair 07/11 Hx Tablets 10mg 30tab 1 PO qd 471.8 Cezar s Eddie Guerra - 11/03 Nasacort Aq 09/13 Hx Suspension 55McG/Act 1unit 2 sprays 473.2 Cezar Intranasal [place] /2004 uation s each ESandie Guerra, - [...] qd Kimberley, / Carlin SANTIAGO - 04/15 Triamterene/Lena Hx Unknown chlorothiazide /04/30 Clopidogrel Hx Tablets 75mg StefeshermanPa Bisulfate / ul M.D. - 04/15 Fluticasone Hx Suspension 50mcg/Act Unknown Propionate / - 04/15 Famotidine Hx Tablets 20mg Unknown / - 04/15 Immunizations CPT Code Status Date Vaccine Lot # [id number] Ordered 02/17/2015 Influenza Virus Vaccine, 3 Years Of Age And Above, Intramuscular 86900 Given Unknown Influenza Virus Vaccine, 3 Years [...] H/L Range Note CBC No Diff 05/04/2015 [facility] White Blood 5.2 10^3 /uL N 3.5-10.8 1 c/o Department [place] [address] [phone] Red Blood Count 5.43 10^6/uL High 4.0-5.4 Hemoglobin 15.1 g/dL N 14.0-18.0 Hematocrit 47 % N 42-52 Mean Corpuscular Volume 87 fL N 80-94 Mean Corpuscular Hemoglobin 28 pg N 27-31 Mean Corpuscular HGB Conc 32 g/dL N 31-36 Red Cell Distribution Width 15 % N 10.5-15 Platelet Count 232 10^3/uL N 150-450 Mean Platelet Volume 8 um3 N 7.4-10.4 Inr/Protime 05/04/2015 [facility] Inr 1.05 N 0.89- 1.11 c/o Department of Laboratories [place], [place] [id number] [phone] Laboratory test 05/04/2015 [facility] Partial 45.0 High 26.0-36.3 2 finding c/o Department of Laboratories [place] [address] Time PTT [phone] Basic Metabolic 05/04/2015 [facility] Sodium 141 mmol/ L N 133-145 Panel c/o Department [place] [address] [phone] Potassium 3.8 mmol/L N 3.5-5.0 Chloride 106 [...] N >60 3 Laboratory test finding 12/06/2012 [facility] Inr 0.96 0.87-0.97 4 c/o Department of Laboratories [place] [id number] [phone] Activated Partial Thrombo Time 44.1 seconds High 22.18-37.18 5 Basic Metabolic 12/02/2012 [facility] Sodium 140 mmol/ L 133-145 Panel c/o Department [place] [address] [phone] Potassium 4.3 mmol/L 3.5-5.0 Chloride 104 mmol/L 101-111 Co2 Carbon Dioxide 30.0 mmol/L 22-32 Anion Gap 6.0 mmol/L 2-11 Glucose 111 mg/dL High 70-100 Blood Urea Nitrogen 14 mg/dL 6-24 Creatinine 1.30 mg/dL 0.50-1.40 BUN/Creatinine Ratio 10.8 8-20 Calcium 9.7 mg/dL 8.1-9.9 Egfr Non- 58.7 >60 Egfr 75.5 >60 6 CBC Auto 07/23/2012 [facility] White Blood 4.0 10^3/ uL Low 4.8-10.8 Diff c/o Department [place] [address] [phone] Red Blood Count 4.93 10^6/uL 4.0-5.4 Hemoglobin [...] Blood Cells % 0.2 Basic Metabolic 07/23/2012 [facility] Sodium 135 mmol/ L 133-145 Panel c/o Department [place] [address] [phone] Potassium 3.6 mmol/L 3.5-5.0 Chloride 102 mmol/L 101-111 Co2 Carbon Dioxide 30.0 mmol/L 22-32 Anion Gap 3.0 mmol/L 2-11 Glucose 80 mg/dL 70-100 Blood Urea Nitrogen 11 mg/dL 6-24 Creatinine 1.10 mg/dL 0.50-1.40 BUN/Creatinine Ratio 10.0 8-20 Calcium 9.0 mg/dL 8.1-9.9 Egfr Non- 71.4 >60 Egfr 91.9 >60 7 Laboratory test 04/28/2008 [facility] Troponin-I (TnI) 0.04 NG/ML 0-0.06 8 finding c/o Department [place] [address] [phone] Stat CMP 04/28/2008 [facility] Sodium 136 mmol/L 135-145 c/o Department [place] [address] [phone] Potassium 3.9 mmol/L 3.5-5.0 Chloride 104 mmol/L [...] (Sgot) 31 U/L 12-42 CBC With 04/28/2008 [facility] White Blood 6.7 CUMM 4.8-10.8 Electronic Diff c/o Department of [place] [address] [phone] Red Cell Count 5.28 CUMM 4.6-6.2 Hemoglobin [...] Abs Basophils 0 0-0.2 Laboratory test 04/26/2008 [facility] Culture FEW COLONIES 12 finding c/o Department of Laboratories Sensitivity OF <SEE NOTE> [place] [address] [phone] 1 SDS 05/11 2 SDS 05/11 3 [...] change was based on recommendations from the [employer]. 11 Please note change in reference range effective 07 . 12 FEW COLONIES OF NORMAL RESPIRATORY MARY BETH Procedures Date Code Description Status 05/23/2018 24247 Binocular Microscopy Completed 04/15/2018 21880 Debridement Of Mastoid Cavity, Simple Completed 08/13/2017 29478 Nasal Endoscopy, Diagnostic Completed 03/21/2016 43938 Nasal Endoscopy, Diagnostic Completed 05/11/2015 53816 Revision Mastoidectomy Resulting In Modified Radical Completed Mastoidctomy 01/28/2014 82153 Fiberoptic Laryngoscopy Completed 09/29/2013 05984 Tympanometry Completed 09/29/2013 47381 Comprehensive Audiogram Completed 03/12/2013 10575 Tympanometry Completed 03/12/2013 40784 Comprehensive Audiogram Completed 01/21/2013 43701 Binocular Microscopy Completed 12/09/2012 26830 Tympanomastoidectomy W/Ossicular Chain Completed 09/25/2012 10889 Medical Records Completed 08/28/2012 57391 Tympanometry Completed 08/28/2012 30723 Comprehensive Audiogram Completed 06/05/2012 56798 Comprehensive Audiogram Completed 06/05/2012 73865 Tympanometry Completed 03/04/2012 13561 Binocular Microscopy Completed 11/19/2011 24154 Nasal Endoscopy, Diagnostic Completed 07/06/2011 29525 Tympanometry Completed 07/06/2011 19021 Comprehensive Audiogram Completed 07/03/2011 28835 Tympanometry Completed 07/03/2011 61127 Binocular Microscopy Completed 11/03/2010 51079 Fiberoptic Laryngoscopy Completed 09/19/2010 36055 Tympanometry Completed 05/24/2010 64993 Tympanometry Completed 05/24/2010 66825 Comprehensive Audiogram Completed 11/09/2009 83710 Tympanometry Completed 04/07/2009 37864 Tympanometry Completed 03/30/2009 44892 Binocular Microscopy Completed 03/10/2009 20327 Comprehensive Audiogram Completed 03/10/2009 67597 Tympanometry Completed 04/26/2008 30025 Nasal Endoscopy, Diagnostic Completed 01/15/2008 89275 Fiberoptic Laryngoscopy Completed 01/05/2008 40928 No Show Fee Completed 11/04/2007 52448 Demonstration/Eval. Of Patient Utilization Of Completed Spacer/Nebulizer 11/04/2007 89517 Respiratory Flow Volume Loop Completed 11/04/2007 26398 Bronchospasm Evaluation Completed 07/24/2007 82423 Prick Test Completed 07/24/2007 53380 Prick Test Completed 07/11/2007 15533 Nasal Endoscopy, Diagnostic Completed 04/02/2007 26728 Nasopharyngoscopy Completed 01/31/2007 91669 Nasal Endoscopy, Diagnostic Completed 01/31/2007 57624 Comprehensive Audiogram Completed 01/31/2007 96309 Comprehensive Audiogram Completed 01/31/2007 11623 Tympanometry Completed 01/31/2007 08033 Tympanometry Completed 12/24/2006 82228 Tympanostomy W/Tube Local Or Topical Anes. Completed 12/02/2006 25597 Tympanometry Completed 12/02/2006 14665 Tympanometry Completed 12/02/2006 62426 Comprehensive Audiogram Completed 12/02/2006 03768 Comprehensive Audiogram Completed 10/26/2005 25464 Nasal Endoscopy, Diagnostic Completed 04/06/2005 88985 Nasal Endoscopy, Diagnostic Completed 09/13/2004 92170 Nasal Endoscopy W/ Debridement Completed 05/24/2004 06623 Nasal Endoscopy W/ Debridement Completed 05/02/2004 47418 Nasal Endoscopy W/Maxllary Antrostomy W/Excision Of Poylp Completed 05/02/2004 59110 Nasal Endoscopy With Ethmoidectomy, Partial Completed 04/28/2004 25552 Nasal Endoscopy, Diagnostic Completed 03/27/2004 05810 Nasal Endoscopy, Diagnostic Completed 03/01/2004 36113 Nasal Endoscopy, Diagnostic Completed 07/01/2003 10304 No Show Fee Completed Encounters Type Date Location Provider Dx Diagnosis Office Visit 06/06/2018 Cassie Fragoso H70.92 Unspecified 10:15a 05/20/07 MD Mari mastoiditis, left ear Office Visit 06/02/2018 Cassie Fragoso H70.92 Unspecified 1:30p 05/20/07 MD Mari mastoiditis, left ear Office Visit 05/29/2018 [place] Cezar Carpio. Cholesteatoma of 9:45a 05/20/07 MD Mari tympanum, left ear Office Visit 05/23/2018 [facility] Shirin Fuentes. Cholesteatoma of 10:30a 05/20/07 CONSTANTINO tympanum, left ear Office Visit 05/01/2018 [facility] Cezar Carpio. Cholesteatoma of 11:30a 05/20/07 MD Mari tympanum, left ear Office Visit 01/07/2018 [facility] Cezar Carpio. Cholesteatoma of 10:30a 05/20/07 MD jinny Guerra, left ear J31.0 Chronic rhinitis G50.1 Atypical facial pain Office Visit 10/04/2017 [facility] Cezar Carpio. Cholesteatoma of 10:00a 05/20/07 MD Mari tympanum, left ear Office Visit 06/06/2017 [facility] Cezar Carpio. Cholesteatoma of 11:15a 05/20/07 MD Mari tympanum, left ear Office Visit 02/15/2017 [facility] Cezar Carpio. Cholesteatoma of 11:00a 05/20/07 MD Mari tympanum, left ear H72.2x1 Other marginal perforations of tympanic membrane, right ear Office Visit 08/28/2016 [facility] Cezar Carpio. 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 Cholesteatoma of 11:00a 05/20/07 MD bryce Guerraum, left ear H60.11 Cellulitis of right external ear Office Visit 09/29/2015 [facility] Cezar Carpoi. 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, left ear Office Visit 12/31/2014 10:15a [facility] 05/20/07 Cezar Morgan 381.29 Otitis Media MD Mari Chronic Media Other 385.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 Office Visit 10/28/2014 3:45p [facility] 05/20/07 Cezar Morgan 381.29 Otitis Media MD Mari Chronic Media Other 385.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 Office Visit 04/01/2014 9:45a [facility] 05/20/07 Cezar Morgan 381.29 Otitis Media MD Mari Chronic Media Other Office Visit 01/28/2014 10:45a [facility] 05/20/07 Cezar Morgan 381.29 Otitis Media MD Mari Chronic Media Other 787.20 Dysphagia, Unspecified Office Visit 11/04/2013 10:15a [facility] 05/20/07 Cezar Guerra MD 786.2 Cough 787.20 Dysphagia, Unspecified 493.00 Asthma, Extrinsic/Atopic Office 09/29/2013 [facility] Cezar Morgan 389.03 Hearing Loss, Visit 10:00a 05/20/07 MD Mari Conductive/Middle Ear 389.10 Hearing Loss, Sensorineural/Unspecified 462-2 Sore Throat Office Visit 09/17/2013 10:30a [place] 05/20/07 Cezar Morgan 380.10 Otitis Externa MD Mari Acute 389.03 Hearing Loss, Conductive/Middle Ear Office Visit 09/11/2013 10:30a [facility] 05/20/07 Cezar Morgan 380.10 Otitis Externa MD Mari Acute 381.29 Otitis Media Chronic Media Other Office Visit 07/23/2013 [facility] Cezar Morgan 385.32 Cholesteatoma Of 9:45a 05/20/07 MD Mari Middle Ear Office Visit 04/09/2013 [facility] Cezar Morgan 472.0 Rhinitis, Chronic 11:00a 05/20/07 MD Mari 385.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 Office Visit 03/12/2013 [facility] Cezar Morgan 385.32 Cholesteatoma Of 10:30a 05/20/07 MD Mari Middle Ear 389.03 Hearing Loss, Conductive/Middle Ear 389.10 Hearing Loss, Sensorineural/Unspecified 477.8 Rhinitis, Perennial, Allergy Office Visit 01/21/2013 [facility] Dmitry Cordova32 Cholesteatoma Of 4:00p 05/20/07 Mikala [employer] Middle Ear 381.29 Otitis Media Chronic Media Other Office Visit 12/03/2012 [facility] Cezar Morgan 385.32 Cholesteatoma Of 1:45p 05/20/07 MD Mari Middle Ear 381.29 Otitis Media Chronic Media Other 389.03 Hearing Loss, Conductive/Middle Ear Office Visit 08/28/2012 [facility] Rosa Cordova.32 Cholesteatoma Of 2:15p 05/20/07 Mikala [employer] Middle Ear 381.29 Otitis Media Chronic Media Other Office Visit 06/05/2012 [facility] Cezar Morgan 385.32 Cholesteatoma Of 1:30p 05/20/07 MD Mari Middle Ear 381.29 Otitis Media Chronic Media Other 389.03 Hearing Loss, Conductive/Middle Ear 389.10 Hearing Loss, Sensorineural/Unspecified Office Visit 05/21/2012 [facility] Cezar Morgan 385.32 Cholesteatoma Of 11:30a 05/20/07 MD Mari Middle Ear Office Visit 05/07/2012 [facility] Cezar Morgan 381.29 Otitis Media 11:15a 05/20/07 MD Mari Chronic Media Other Office Visit 03/13/2012 [facility] Cezar Morgan 381.29 Otitis Media 3:15p 05/20/07 MD Mari Chronic Media Other Office Visit 03/04/2012 [facility] Art, 381.3 Otitis Media, 9:30a 05/20/07 Mikala [employer] Chronic Allergic/Unspecifi ed Office Visit 11/19/2011 [place] Art, 350.2 Facial Pain, 2:45p 05/20/07 Mikala [employer] Atypical 472.0 Rhinitis, Chronic Office Visit 09/18/2011 3:30p [facility] 05/20/07 [place], 477.8 Rhinitis , Mikala [employer] Perennial, Allergy 493.01 Asthma Extrinsic W/ Status Asthmaticus Office 09/05/2011 [facility] Cezar Morgan 389.03 Hearing Loss, Visit 11:15a 05/20/07 MD Mari Conductive/Middle Ear 389.10 Hearing Loss, Sensorineural/Unspecified 384.82 Tympanic Membrane, Atrophic Nonflaccid Office Visit 07/03/2011 4:00p [place] Art 384.82 Tympanic 05/20/07 Mikala [employer] Membrane, Atrophic Nonflaccid Office Visit 02/22/2011 1:45p [place] Cezar Morgan 462 Pharyngitis, 05/20/07 MD Mari Acute 384.20 Perforation Of Tympanic Membrane/Unspecified 381.81 Dysfunction Of Eustachian Tube 389.03 Hearing Loss, Conductive/Middle Ear 389.10 Hearing Loss, Sensorineural/Unspecified Office Visit 11/03/2010 9:30a [place] [place], 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 Mikala [employer] Sinus/Perf Nasal Septum 530.81 Reflux, Gastroesophageal 493.00 Asthma, Extrinsic/Atopic 530.11 Reflux, Esophagitis Office 10/10/2010 [place] [place], 384.20 Perforation Of Tympanic Visit 2:00p 05/20/07 Mikala [employer] Membrane/Unspecified 477.8 Rhinitis, Perennial, Allergy 493.00 Asthma, Extrinsic/Atopic Office 09/19/2010 [facility] Art 384.20 Perforation Of Tympanic Visit 1:30p 05/20/07 Mikala [employer] Membrane/Unspecified 381.81 Dysfunction Of Eustachian Tube Office 05/24/2010 [facility] Cezar Morgan 389.03 Hearing Loss, Visit 2:00p 05/20/07 MD Mari Conductive/Middle Ear 389.10 Hearing Loss, Sensorineural/Unspecified 381.81 Dysfunction Of Eustachian Tube 384.20 Perforation Of Tympanic Membrane/Unspecified Office 11/09/2009 [facility] Art 384.20 Perforation Of Tympanic Visit 11:30a 05/20/07 Mikala [employer] Membrane/Unspecified 381.81 Dysfunction Of Eustachian Tube 350.2 Facial Pain, Atypical Office Visit 10/19/2009 1:30p [facility] 05/20/07 Cezar Morgan 477.8 RhinitisMari MD Perennial, Allergy 384.20 Perforation Of Tympanic Membrane/Unspecified 381.81 Dysfunction Of Eustachian Tube Office Visit 09/30/2009 10:00a [facility]After 05/20/07 Cezar Morgan 477.8 RhinitisMari MD Perennial, Allergy 493.00 Asthma, Extrinsic/Atopic 384.20 Perforation Of Tympanic Membrane/Unspecified 389.03 Hearing Loss, Conductive/Middle Ear Office 04/07/2009 [facility] Cezar Morgan 384.20 Perforation Of Tympanic Visit 3:45p 05/20/07 MD Mari Membrane/Unspecified 388.71 Otalgia Otogenic Pain 381.81 Dysfunction Of Eustachian Tube Office 03/30/2009 [facility] Cezar Morgan 384.20 Perforation Of Tympanic Visit 2:30p 05/20/07 MD Mari Membrane/Unspecified 388.71 Otalgia Otogenic Pain Office Visit 03/10/2009 1:45p [facility] Cezar Morgan 388.31 Tinnitus, 05/20/07 MD Mari Subjective 478.1-4 Obstruction Of Nasal Airway Office Visit 12/28/2008 4:00p [place],After Cezar Morgan 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 MD Mari Sinus/Perf Nasal Septum 478.1-4 Obstruction Of Nasal Airway 477.8 Rhinitis, Perennial, Allergy 493.00 Asthma, Extrinsic/Atopic Office Visit 07/28/2008 3:15p [facility] 05/20/07 Cezar Morgan 350.2 Facial Pain, MD Mari Atypical 473.0 Sinusitis, Chronic Maxillary 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, Chronic Ethmoidal 471.8 Polyps, Nasal/Sinus Office Visit 05/04/2008 [facility] Julio Swfit 493.01 Asthma Extrinsic 2:45p 05/20/07 Jacobo Arreola W/ Status Asthmaticus 530.81 Reflux, Gastroesophageal 780.57 Apnea, Sleep Not Elsewhere Classified /Unspecified 278.01 Obesity Morbid 429.3 Cardiomegaly Office 04/28/2008 [facility] Julio Swift 493.00 Asthma, Visit 1:48p 05/20/07 Reji Arreola/Atopic Jacobo Office 04/26/2008 [facility]After Art 473.0 Sinusitis, Chronic Visit 9:30a 05/20/07 Mikala [employer] Maxillary 530.81 Reflux, Gastroesophageal Office Visit 03/11/2008 [facility] Cezar Morgan 780.57 Apnea, Sleep Not 4:00p 05/20/07 MD Mari Elsewhere Classified /Unspecified 381.81 Dysfunction Of Eustachian Tube 389.03 Hearing Loss, Conductive/Middle Ear Office Visit 02/16/2008 [facility] Cezar Morgan 780.57 Apnea, Sleep Not 10:15a 05/20/07 MD Mari Elsewhere Classified /Unspecified 530.11 Reflux, Esophagitis Office Visit 12/04/2007 [facility]After Art 530.81 Reflux, 3:30p 05/20/07 Mikala [employer] Gastroesophageal 477.8 Rhinitis, Perennial, Allergy 493.90 Asthma, Allergic/Unspecified Office Visit 11/04/2007 10:15a [facility] Art 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 Mikala [employer] Sinus/Perf Nasal Septum 478.1-4 Obstruction Of Nasal Airway 477.8 Rhinitis, Perennial, Allergy Office Visit 10/23/2007 [facility]After Art 478.1-4 Obstruction Of 3:00p 05/20/07 Mikala [employer] Nasal Airway 381.3 Otitis Media, Chronic Allergic/Unspecified 493.00 Asthma, Extrinsic/Atopic 477.0 Rhinitis, Seasonal -Allergic Due To Pollen 477.8 Rhinitis, Perennial, Allergy Office Visit 07/31/2007 10:00a [place]After 05/20/07 [place], 477.8 Rhinitis , Mikala [employer] Perennial, Allergy 477.0 Rhinitis, Seasonal -Allergic Due To Pollen Office Visit 07/11/2007 3:30p [facility]After 05/20/07 Cezar Morgan 477.8 RhinitisMari MD Perennial, Allergy 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 478.1-4 Obstruction Of Nasal Airway Office Visit 05/15/2007 9:00a [facility],After 05/20/07 Cezar Morgan 477.8 RhinitisMari MD Perennial, Allergy Office Visit 04/02/2007 2:15p [facility] 05/20/07 Cezar Morgan 477.8 RhinitisMari MD Perennial, Allergy 471.8 Polyps, Nasal/Sinus 389.2 Hearing Loss, Mixed/Conductive & Sensorineural 381.81 Dysfunction Of Eustachian Tube 474.12 Hypertrophy, Adenoids Office Visit 03/03/2007 2:45p [facility] 05/20/07 Cezar Morgan 473.0 Sinusitis, MD Mari Chronic Maxillary 474.12 Hypertrophy, Adenoids 381.81 Dysfunction Of Eustachian Tube Office Visit 01/31/2007 [facility] Cezar Morgan 381.81 Dysfunction Of 3:15p 05/20/07 MD Mari Eustachian Tube 389.2 Hearing Loss, Mixed/Conductive & Sensorineural 471.8 Polyps, Nasal/Sinus 474.12 Hypertrophy, Adenoids Office Visit 12/02/2006 [facility] Cezar Morgan 381.81 Dysfunction Of 2:30p 05/20/07 MD Mari Eustachian Tube 389.2 Hearing Loss, Mixed/Conductive & Sensorineural Office Visit 04/24/2006 9:45a [facility] Cezar Morgan 471.8 Polyps, 05/20/07 MD Mari Nasal/Sinus 473.0 Sinusitis, Chronic Maxillary 461.0 Sinusitis, Acute Maxillary Office Visit 07/11/2005 1:30p [facility] Cezar Morgan 471.8 Polyps, 05/20/07 MD Mari Nasal/Sinus 780.57 Apnea, Sleep Not Elsewhere Classified /Unspecified 493.0 Code Needs 5TH Digit Office Visit 04/06/2005 1:30p [facility] 05/20/07 Cezar Morgan 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, MD Mari Chronic Ethmoidal 471.8 Polyps, Nasal/Sinus 389.03 Hearing Loss, Conductive/Middle Ear Office Visit 05/09/2004 [facility],After Julio Swift 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, 9:30a 05/20/07 Jacobo Arreola Chronic Ethmoidal 471.8 Polyps, Nasal/Sinus Office Visit 02/04/2004 [facility],After Dank Rose 780.57 Apnea, Sleep Not 9:45a 05/20/07 Jacobo Pat Elsewhere Classified /Unspecified Office Visit 05/28/2003 [facility] Dank Rose 478.1 Ulcer Of Nasal 11:15a 05/20/07 Jacobo Pat Septum Plan of Treatment Future Appointment(s):06/12/2018 11:30 am - Cezar Guerra MD at [facility], After 05/20/802 10:30 am - Cezar Guerra MD at [facility],After 05/20/800 - Cezar Guerra MDH70.92 Unspecified mastoiditis, left ear
[2018-06-26 17:30] LABS: Albumin 4.4 g/dL (3.2-5.2); Albumin/Globulin Ratio 1.5 (1-3); BUN/Creatinine Ratio 12.8 (8-20); Calcium 9.6 mg/dL (8.6-10.3); EGFR African American 85.3 (>60); EGFR Non-African American 70.5 (>60); Total Bilirubin 0.5 mg/dL (0.2-1.0); Total Protein 7.4 g/dL (6.4-8.9)
--- OUTSIDE RECORDS SUMMARY | 2018-06-26 17:30 | XMS REPORT | Continuity of Care Document ---
:1965 External Reference #:[id number] Author Name Cezar Guerra MD Address [address] [place] [address] Care Team Providers Name Role Phone Carlin Chu MD Care Team Information Painter Plate Unavailable Carlin Chu MD Primary Care Physician Unavailable Payers Type Date Identification Numbers Payment Provider Subscriber Effective: Policy Number: [id number] Medicare-[facility] Govn Cas Glaser 1999 SRVS PayID: [id number] [address] [place] [address] Policy Number: [id number] Medicaid/C Cas Glaser Group Number: [id number] Medicare Primary Group Name: [id number] PayID: [id number] [place] [address] Advance Directives Description No Information Available Problems [...] Onset: 02/23/2011 Gastroesophageal reflux disease Mikala Cordova OLAP DEVELOPER Active Onset: 02/23/2011 Extrinsic asthma without status Mikala Cordova NP Active asthmaticus Onset: 02/23/2011 Peptic reflux disease Mikala Cordova OLAP DEVELOPER Active Onset: 02/23/2011 Allergic rhinitis Mikala Cordova OLAP DEVELOPER Active Onset: 04/15/2018 Impacted cerumen Marguerite Muller [...] 1 po qd Unknown Calcium Klor-Con M20 00/00 Active Tablets ER 20Meq Stefek,Pa / ul M.D. Metoprolol Active Tablets ER 50mg Unknown Succinate ER 24HR Triamterene/[place] Active Capsules 37.5-25mg Kimberley, chlorothiazide Carlin [...] 05/25 Hx Cream 0.1% 15gm Apply to Acet left ear Pipe Fernando twice 01/07 daily for 1 week Percocet 05/04 Hx Tablets 5-325mg 30tab 1-2 tabs s by mouth E. Mari, - every 4-6 04/15 hours needed for pain Levofloxacin 05/04 Hx Tablets 500mg 10tab 1 by mouth s every day Eddie Guerra, - 01/07 Ciprodex 09/11 Hx Suspension 0.3-0.1% 1Bott 4 drops to le left ears Eddie Guerra, - twice a 01/07 day rebate rx bin: [id number] rxpcn: loyalty rxgrp:[id number] cattle inspector: [id number]) id#[id number] 25 Ofloxacin 12/17 Hx Solution 0.3% 1unit 4 drops to Julio Swift s affected Strominge - ear daily rJacobo 03/12 Ciprodex 12/15 Hx Suspension 0.3-0.1% 2unit 4 drops Julio Swift s infected Strominge - ear bid Jacobo akbar 03/12 rebate rxbin: [id number] rxpcn: loyalty rxgrp: [id number] cattle inspector: [id number]) id: [id number] Oxycodone/Acetami 12/03 Hx Tablets 5-325mg 30tab 1-2 tabs Julio chacon s by mouth Strominge - every 4-6 Jacobo akbar 04/15 hours needed for pain Ciprodex 08/28 Hx Suspension 0.3-0.1% 2unit 4 drops 385.32 Julio Swift s infected Strominge - ear bid Jacobo akbar 12/02 rebate rxbin: [id number] rxpcn: loyalty rxgrp: [id number] cattle inspector: ([id number]) id: [id number] Levofloxacin 07/23 Hx Tablets 500mg 10tab 1 po qd s Eddie Guerra, - 12/02 Oxycodone/Acetami 07/23 Hx Tablets 5-325mg 30tab 1-2 tabs Cezar chacon s by mouth Eddie Guerra, - every 4-6 12/02 hours needed for pain Ciprodex 03/04 Hx Suspension 0.3-0.1% 2unit 4 drops 381.3 s infected ESandie Guerra, - ear bid x 07/23 14 apply areli rxbin: [id number] rxpcn: alberto rxgrp: [id number] cattle inspector: ([id number]) id: [id number] Ipratropium 11/18 Hx Solution 0.06% 6unit 2 to 4 J31.0 Julio [place]. [place] s sprays in Strominge - each Jacobo [...] Tablets 10mg 30tab 1 PO qd Julio Swift zeferino akbar M.D. 12/28 Fluticasone 04/02 Hx [...] 55mcg/Act 1unit 2 Sprays 471.8 Cezar Intranasal [place] /2005 uation s Each Pipe Fernando Nostril qd 05/04 Levaquin 04/24 Hx Tablets 500mg 10tab 1 Tablet 471.8 s By Mouth Eddie Guerra - Daily 03/03 Finished Nexium 10/24 Hx Unknown /2005 - 05/04 Singulair 07/11 Hx Tablets 10mg 30tab 1 PO qd 471.8 Cezar s Eddie Guerra - 11/03 Nasacort Aq 09/13 Hx Suspension 55McG/Act 1unit 2 sprays 473.2 Cezar Intranasal [place] /2004 uation s each Eddie Guerra, - nostril qd 12/02 Clopidrogel Hx [...] qd Kimberley, / Carlin SANTIAGO - 04/15 Triamterene/[place] Hx Unknown chlorothiazide /04/30 Clopidogrel Hx Tablets 75mg StefeshermanPa Bisulfate / ul M.D. - 04/15 Fluticasone Hx Suspension 50mcg/Act Unknown Propionate / - 04/15 Famotidine Hx Tablets 20mg Unknown / - 04/15 Immunizations CPT Code Status Date Vaccine Lot # [id number] Ordered 02/17/2015 Influenza Virus Vaccine, 3 Years Of Age And Above, Intramuscular 10998 Given Unknown Influenza Virus Vaccine, 3 Years Of Age And Above, Intramuscular Vital Signs Date Vital Result Comment 05/29/2018 9:23am Weight 347.00 lb Weight 157.399 [...] H/L Range Note CBC No Diff 05/04/2015 [facility] White Blood 5.2 10^3 /uL N 3.5-10.8 1 c/o Department of Laboratories Count [place], [place] [id number] [phone] Red Blood Count 5.43 10^6/uL High 4.0-5.4 Hemoglobin 15.1 g/dL N 14.0-18.0 Hematocrit 47 % N 42-52 Mean Corpuscular Volume 87 fL N 80-94 Mean Corpuscular Hemoglobin 28 pg N 27-31 Mean Corpuscular HGB Conc 32 g/dL N 31-36 Red Cell Distribution Width 15 % N 10.5-15 Platelet Count 232 10^3/uL N 150-450 Mean Platelet Volume 8 um3 N 7.4-10.4 Inr/Protime 05/04/2015 [facility] Inr 1.05 N 0.89- 1.11 c/o [place] [address] [phone] Laboratory test 05/04/2015 [facility] Partial 45.0 High 26.0-36.3 2 finding c/o Department of [place] [address] Time PTT [phone] Basic Metabolic 05/04/2015 [facility] Sodium 141 mmol/ L N 133-145 Panel c/o Department of Laboratories [place], [place] [id number] [phone] Potassium 3.8 mmol/L N 3.5-5.0 Chloride 106 [...] N >60 3 Laboratory test finding 12/06/2012 [facility] Inr 0.96 0.87-0.97 4 c/o [place] [address] [phone] Activated Partial Thrombo Time 44.1 seconds High 22.18-37.18 5 Basic Metabolic 12/02/2012 [facility] Sodium 140 mmol/ L 133-145 Panel c/o [place] [address] [phone] Potassium 4.3 mmol/L 3.5-5.0 Chloride 104 mmol/L 101-111 Co2 Carbon Dioxide 30.0 mmol/L 22-32 Anion Gap 6.0 mmol/L 2-11 Glucose 111 mg/dL High 70-100 Blood Urea Nitrogen 14 mg/dL 6-24 Creatinine 1.30 mg/dL 0.50-1.40 BUN/Creatinine Ratio 10.8 8-20 Calcium 9.7 mg/dL 8.1-9.9 Egfr Non- 58.7 >60 Egfr 75.5 >60 6 CBC Auto 07/23/2012 [facility] White Blood 4.0 10^3/ uL Low 4.8-10.8 Diff c/o Department [place] [address] [phone] Red Blood Count 4.93 10^6/uL 4.0-5.4 Hemoglobin [...] Blood Cells % 0.2 Basic Metabolic 07/23/2012 [facility] Sodium 135 mmol/ L 133-145 Panel c/o [place] [address] [phone] Potassium 3.6 mmol/L 3.5-5.0 Chloride 102 mmol/L 101-111 Co2 Carbon Dioxide 30.0 mmol/L 22-32 Anion Gap 3.0 mmol/L 2-11 Glucose 80 mg/dL 70-100 Blood Urea Nitrogen 11 mg/dL 6-24 Creatinine 1.10 mg/dL 0.50-1.40 BUN/Creatinine Ratio 10.0 8-20 Calcium 9.0 mg/dL 8.1-9.9 Egfr Non- 71.4 >60 Egfr 91.9 >60 7 Laboratory test 04/28/2008 [facility] Troponin-I (TnI) 0.04 NG/ML 0-0.06 8 finding c/o Department of Laboratories [place], [place] [id number] [phone] Stat CMP 04/28/2008 [facility] Sodium 136 mmol/L 135-145 c/o [place] [address] [phone] Potassium 3.9 mmol/L 3.5-5.0 Chloride 104 mmol/L [...] (Sgot) 31 U/L 12-42 CBC With 04/28/2008 [facility] White Blood 6.7 CUMM 4.8-10.8 Electronic Diff c/o Department [place] [address] [phone] Red Cell Count 5.28 CUMM 4.6-6.2 Hemoglobin [...] Abs Basophils 0 0-0.2 Laboratory test 04/26/2008 [facility] Culture FEW COLONIES 12 finding c/o Department of Laboratories Sensitivity OF <SEE NOTE> [place] [address] [phone] 1 SDS 05/11 2 SDS 05/11 3 [...] <0.06 ng/ml NOT SUPPORTIVE OF DIAGNOSIS OF MD 0.06 - 0.50 ng/ml INDETERMINATE: SUGGEST SERIAL STUDIES IF CLINICALLY INDICATED. > 0.5 ng/ml CONSISTENT WITH DIAGNOSIS OF MD . 9 Anion gap measurement may be of limited value in the presence of any alkalosis, especially in a combined acid base disorder. . 10 Note change in reference range as of 01/08/08. The change was based on recommendations from the [place] [employer]. 11 Please note change in reference range effective 07 . 12 FEW COLONIES OF NORMAL RESPIRATORY MARY BETH Procedures Date Code Description Status 05/23/2018 63848 Binocular Microscopy Completed 04/15/2018 64986 Debridement Of Mastoid Cavity, Simple Completed 08/13/2017 61359 Nasal Endoscopy, Diagnostic Completed 03/21/2016 74664 Nasal Endoscopy, Diagnostic Completed 05/11/2015 28296 Revision Mastoidectomy Resulting In Modified Radical Completed Mastoidctomy 01/28/2014 25072 Fiberoptic Laryngoscopy Completed 09/29/2013 64247 Tympanometry Completed 09/29/2013 41844 Comprehensive Audiogram Completed 03/12/2013 07920 Tympanometry Completed 03/12/2013 22456 Comprehensive Audiogram Completed 01/21/2013 20621 Binocular Microscopy Completed 12/09/2012 95287 Tympanomastoidectomy W/Ossicular Chain Completed 09/25/2012 25678 Medical Records Completed 08/28/2012 24533 Tympanometry Completed 08/28/2012 33295 Comprehensive Audiogram Completed 06/05/2012 50737 Comprehensive Audiogram Completed 06/05/2012 85213 Tympanometry Completed 03/04/2012 13596 Binocular Microscopy Completed 11/19/2011 64959 Nasal Endoscopy, Diagnostic Completed 07/06/2011 85569 Tympanometry Completed 07/06/2011 55067 Comprehensive Audiogram Completed 07/03/2011 81501 Tympanometry Completed 07/03/2011 84669 Binocular Microscopy Completed 11/03/2010 89097 Fiberoptic Laryngoscopy Completed 09/19/2010 70994 Tympanometry Completed 05/24/2010 88649 Tympanometry Completed 05/24/2010 92703 Comprehensive Audiogram Completed 11/09/2009 85032 Tympanometry Completed 04/07/2009 30594 Tympanometry Completed 03/30/2009 79654 Binocular Microscopy Completed 03/10/2009 47328 Comprehensive Audiogram Completed 03/10/2009 89951 Tympanometry Completed 04/26/2008 88071 Nasal Endoscopy, Diagnostic Completed 01/15/2008 13011 Fiberoptic Laryngoscopy Completed 01/05/2008 08895 No Show Fee Completed 11/04/2007 34974 Demonstration/Eval. Of Patient Utilization Of Completed Spacer/Nebulizer 11/04/2007 15144 Respiratory Flow Volume Loop Completed 11/04/2007 97242 Bronchospasm Evaluation Completed 07/24/2007 03307 Prick Test Completed 07/24/2007 22685 Prick Test Completed 07/11/2007 46930 Nasal Endoscopy, Diagnostic Completed 04/02/2007 15437 Nasopharyngoscopy Completed 01/31/2007 40968 Nasal Endoscopy, Diagnostic Completed 01/31/2007 24400 Comprehensive Audiogram Completed 01/31/2007 23727 Comprehensive Audiogram Completed 01/31/2007 52774 Tympanometry Completed 01/31/2007 76997 Tympanometry Completed 12/24/2006 02810 Tympanostomy W/Tube Local Or Topical Anes. Completed 12/02/2006 03721 Tympanometry Completed 12/02/2006 12738 Tympanometry Completed 12/02/2006 08773 Comprehensive Audiogram Completed 12/02/2006 06073 Comprehensive Audiogram Completed 10/26/2005 36710 Nasal Endoscopy, Diagnostic Completed 04/06/2005 29936 Nasal Endoscopy, Diagnostic Completed 09/13/2004 09936 Nasal Endoscopy W/ Debridement Completed 05/24/2004 15666 Nasal Endoscopy W/ Debridement Completed 05/02/2004 11596 Nasal Endoscopy W/Maxllary Antrostomy W/Excision Of Poylp Completed 05/02/2004 85168 Nasal Endoscopy With Ethmoidectomy, Partial Completed 04/28/2004 57012 Nasal Endoscopy, Diagnostic Completed 03/27/2004 32167 Nasal Endoscopy, Diagnostic Completed 03/01/2004 43759 Nasal Endoscopy, Diagnostic Completed 07/01/2003 54703 No Show Fee Completed Encounters Type Date Location Provider Dx Diagnosis Office Visit 05/29/2018 [place],After Cezar Morgan H71.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 of 9:45a 05/20/07 MD Mari tympanum, left ear Office Visit 05/23/2018 [place] Marguerite Muller H71.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 of 10:30a 05/20/07 CONSTANTINO tympanum, left ear Office Visit 05/01/2018 [place] Cezar Morgan H71.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 05/20/07 MD Mari tympanum, left ear Office Visit 01/07/2018 [place] Cezar Morgan H71.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 of 10:30a 05/20/07 MD Mari tympanum, left ear J31.0 Chronic rhinitis G50.1 Atypical facial pain Office Visit 10/04/2017 [place] Cezar Morgan H71.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 of 10:00a 08 MD Mari tympanum, left ear Office Visit 06/06/2017 [place] Cezar Morgan H71.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 of 11:15a 05/20/07 MD Mari tympanum, left ear Office Visit 02/15/2017 [place] Cezar Morgan H7.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 of 11:00a 05/20/07 MD Mari tympanum, left ear H72.2x1 Other marginal perforations of tympanic membrane, right ear Office Visit 08/28/2016 [place] Cezar Morgan H71.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 of 10:30a 05/20/07 MD Mari tympanum, left ear Office Visit 04/26/2016 [place] Cezar Morgan J31.0 Chronic rhinitis 2:45p 05/20/07 MD Mari 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, left ear Office Visit 12/30/2015 [place],After Cezar Morgan H7.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 of 11:00a 05/20/07 MD Mari tympanum, left ear H60.11 Cellulitis of right external ear Office Visit 09/29/2015 [place] Cezar Morgan H71.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 of 11:00a 05/20/07 MD Mari tympanum, left ear Office Visit 05/25/2015 [place],After Cezar Morgan L23.3 Allergic contact 3:45p 05/20/07 MD Mari dermatitis due to drugs in contact w skin Office Visit 03/24/2015 [place] Cezar Morgan H71.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 05/20/07 MD Mari tympanum, left ear Office Visit 03/17/2015 [place] Cezar Morgan H71.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 of 10:30a 05/20/07 MD Mari tympanum, left ear Office Visit 03/03/2015 [place],After Cezar Morgan 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, 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, left ear Office Visit 12/31/2014 10:15a [place],After 05/20/07 Cezar Morgan 381.29 Otitis Media MD Mari Chronic Media Other 385.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 Office Visit 10/28/2014 3:45p [place],After 05/20/07 Cezar Morgan 381.29 Otitis Media MD Mari Chronic Media Other 385.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 Office Visit 04/01/2014 9:45a [place],After 05/20/07 Cezar Morgan 381.29 Otitis Media MD Mari Chronic Media Other Office Visit 01/28/2014 10:45a [place],After 05/20/07 Cezar Morgan 381.29 Otitis Media MD Mari Chronic Media Other 787.20 Dysphagia, Unspecified Office Visit 11/04/2013 10:15a [place],After 05/20/07 Cezar Guerra MD 786.2 Cough 787.20 Dysphagia, Unspecified 493.00 Asthma, Extrinsic/Atopic Office 09/29/2013 [place],After Cezar Morgan 389.03 Hearing Loss, Visit 10:00a 05/20/07 MD Mari Conductive/Middle Ear 389.10 Hearing Loss, Sensorineural/Unspecified 462-2 Sore Throat Office Visit 09/17/2013 10:30a [place],After 05/20/07 Cezar Morgan 380.10 Otitis Externa MD Mari Acute 389.03 Hearing Loss, Conductive/Middle Ear Office Visit 09/11/2013 10:30a [place],After 05/20/07 Cezar Morgan 380.10 Otitis Externa MD Mari Acute 381.29 Otitis Media Chronic Media Other Office Visit 07/23/2013 [place],After Cezar Morgan 385.32 Cholesteatoma Of 9:45a 05/20/07 MD Mari Middle Ear Office Visit 04/09/2013 [place],After Cezar Morgan 472.0 Rhinitis, Chronic 11:00a 05/20/07 MD Mari 385.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 Office Visit 03/12/2013 [place],After Cezar Morgan 385.32 Cholesteatoma Of 10:30a 05/20/07 MD Mari Middle Ear 389.03 Hearing Loss, Conductive/Middle Ear 389.10 Hearing Loss, Sensorineural/Unspecified 477.8 Rhinitis, Perennial, Allergy Office Visit 01/21/2013 [place],After Art 385.32 Cholesteatoma Of 4:00p 05/20/07 Mikala OLAP DEVELOPER Middle Ear 381.29 Otitis Media Chronic Media Other Office Visit 12/03/2012 [place],After Cezar Morgan 385.32 Cholesteatoma Of 1:45p 05/20/07 MD Mari Middle Ear 381.29 Otitis Media Chronic Media Other 389.03 Hearing Loss, Conductive/Middle Ear Office Visit 08/28/2012 [place],After Rosa Cordova.32 Cholesteatoma Of 2:15p 05/20/07 Mikala OLAP DEVELOPER Middle Ear 381.29 Otitis Media Chronic Media Other Office Visit 06/05/2012 [place],After Cezar Morgan 385.32 Cholesteatoma Of 1:30p 05/20/07 MD Mari Middle Ear 381.29 Otitis Media Chronic Media Other 389.03 Hearing Loss, Conductive/Middle Ear 389.10 Hearing Loss, Sensorineural/Unspecified Office Visit 05/21/2012 [place],After Cezar Morgan 385.32 Cholesteatoma Of 11:30a 05/20/07 MD Mari Middle Ear Office Visit 05/07/2012 [place],After Cezar Morgan 381.29 Otitis Media 11:15a 05/20/07 MD Mari Chronic Media Other Office Visit 03/13/2012 [place],After Cezar Morgan 381.29 Otitis Media 3:15p 05/20/07 MD Mari Chronic Media Other Office Visit 03/04/2012 [place],After Art 381.3 Otitis Media, 9:30a 05/20/07 Mikala OLAP DEVELOPER Chronic Allergic/Unspecifi ed Office Visit 11/19/2011 [place],After Art 350.2 Facial Pain, 2:45p 05/20/07 Mikala OLAP DEVELOPER Atypical 472.0 Rhinitis, Chronic Office Visit 09/18/2011 3:30p [place],After 05/20/07 Art 477.8 Rhinitis , Mikala OLAP DEVELOPER Perennial, Allergy 493.01 Asthma Extrinsic W/ Status Asthmaticus Office 09/05/2011 [place],After Cezar Morgan 389.03 Hearing Loss, Visit 11:15a 05/20/07 MD Mari Conductive/Middle Ear 389.10 Hearing Loss, Sensorineural/Unspecified 384.82 Tympanic Membrane, Atrophic Nonflaccid Office Visit 07/03/2011 4:00p [place],After Art 384.82 Tympanic 05/20/07 Mikala OLAP DEVELOPER Membrane, Atrophic Nonflaccid Office Visit 02/22/2011 1:45p [place],After Cezar Morgan 462 Pharyngitis, 05/20/07 MD Mari Acute 384.20 Perforation Of Tympanic Membrane/Unspecified 381.81 Dysfunction Of Eustachian Tube 389.03 Hearing Loss, Conductive/Middle Ear 389.10 Hearing Loss, Sensorineural/Unspecified Office Visit 11/03/2010 9:30a [place],After Art, 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 Mikala OLAP DEVELOPER Sinus/Perf Nasal Septum 530.81 Reflux, Gastroesophageal 493.00 Asthma, Extrinsic/Atopic 530.11 Reflux, Esophagitis Office 10/10/2010 [place],After Art, 384.20 Perforation Of Tympanic Visit 2:00p 05/20/07 Mikala OLAP DEVELOPER Membrane/Unspecified 477.8 Rhinitis, Perennial, Allergy 493.00 Asthma, Extrinsic/Atopic Office 09/19/2010 [place],After Art, 384.20 Perforation Of Tympanic Visit 1:30p 05/20/07 Mikala OLAP DEVELOPER Membrane/Unspecified 381.81 Dysfunction Of Eustachian Tube Office 05/24/2010 [place],After Cezar Morgan 389.03 Hearing Loss, Visit 2:00p 05/20/07 MD Mari Conductive/Middle Ear 389.10 Hearing Loss, Sensorineural/Unspecified 381.81 Dysfunction Of Eustachian Tube 384.20 Perforation Of Tympanic Membrane/Unspecified Office 11/09/2009 [place],After Art, 384.20 Perforation Of Tympanic Visit 11:30a 05/20/07 Mikala OLAP DEVELOPER Membrane/Unspecified 381.81 Dysfunction Of Eustachian Tube 350.2 Facial Pain, Atypical Office Visit 10/19/2009 1:30p [place],After 05/20/07 Czear Morgan 477.8 RhinitisMari MD Perennial, Allergy 384.20 Perforation Of Tympanic Membrane/Unspecified 381.81 Dysfunction Of Eustachian Tube Office Visit 09/30/2009 10:00a [place],After 05/20/07 Cezar Morgan 477.8 RhinitisMari MD Perennial, Allergy 493.00 Asthma, Extrinsic/Atopic 384.20 Perforation Of Tympanic Membrane/Unspecified 389.03 Hearing Loss, Conductive/Middle Ear Office 04/07/2009 [place],After Cezar Morgan 384.20 Perforation Of Tympanic Visit 3:45p 05/20/07 MD Mari Membrane/Unspecified 388.71 Otalgia Otogenic Pain 381.81 Dysfunction Of Eustachian Tube Office 03/30/2009 [place],After Cezar Morgan 384.20 Perforation Of Tympanic Visit 2:30p 05/20/07 MD Mari Membrane/Unspecified 388.71 Otalgia Otogenic Pain Office Visit 03/10/2009 1:45p [place],After Cezar Morgan 388.31 Tinnitus, 05/20/07 MD Mari Subjective 478.1-4 Obstruction Of Nasal Airway Office Visit 12/28/2008 4:00p [place],After Cezar Morgan 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 MD Mari Sinus/Perf Nasal Septum 478.1-4 Obstruction Of Nasal Airway 477.8 Rhinitis, Perennial, Allergy 493.00 Asthma, Extrinsic/Atopic Office Visit 07/28/2008 3:15p [place],After 05/20/07 Cezar Morgan 350.2 Facial Pain, MD Mari Atypical 473.0 Sinusitis, Chronic Maxillary 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, Chronic Ethmoidal 471.8 Polyps, Nasal/Sinus Office Visit 05/04/2008 [place],After Julio Swift 493.01 Asthma Extrinsic 2:45p 05/20/07 Jacobo Arreola W/ Status Asthmaticus 530.81 Reflux, Gastroesophageal 780.57 Apnea, Sleep Not Elsewhere Classified /Unspecified 278.01 Obesity Morbid 429.3 Cardiomegaly Office 04/28/2008 [place],After Julio Swift 493.00 Asthma, Visit 1:48p 05/20/07 [place], Extrinsic/Atopic Jacobo Office 04/26/2008 [place],After Art 473.0 Sinusitis, Chronic Visit 9:30a 05/20/07 Mikala OLAP DEVELOPER Maxillary 530.81 Reflux, Gastroesophageal Office Visit 03/11/2008 [place],After Cezar Morgan 780.57 Apnea, Sleep Not 4:00p 05/20/07 MD Mari Elsewhere Classified /Unspecified 381.81 Dysfunction Of Eustachian Tube 389.03 Hearing Loss, Conductive/Middle Ear Office Visit 02/16/2008 [place],After Cezar Morgan 780.57 Apnea, Sleep Not 10:15a 05/20/07 MD Mari Elsewhere Classified /Unspecified 530.11 Reflux, Esophagitis Office Visit 12/04/2007 [place],After Art 530.81 Reflux, 3:30p 05/20/07 Mikala OLAP DEVELOPER Gastroesophageal 477.8 Rhinitis, Perennial, Allergy 493.90 Asthma, Allergic/Unspecified Office Visit 11/04/2007 10:15a [place],After Art 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 Mikala OLAP DEVELOPER Sinus/Perf Nasal Septum 478.1-4 Obstruction Of Nasal Airway 477.8 Rhinitis, Perennial, Allergy Office Visit 10/23/2007 [place],After Art 478.1-4 Obstruction Of 3:00p 05/20/07 Mikala OLAP DEVELOPER Nasal Airway 381.3 Otitis Media, Chronic Allergic/Unspecified 493.00 Asthma, Extrinsic/Atopic 477.0 Rhinitis, Seasonal -Allergic Due To Pollen 477.8 Rhinitis, Perennial, Allergy Office Visit 07/31/2007 10:00a [place],After 05/20/07 Art 477.8 Rhinitis , Mikala OLAP DEVELOPER Perennial, Allergy 477.0 Rhinitis, Seasonal -Allergic Due To Pollen Office Visit 07/11/2007 3:30p [place],After 05/20/07 Cezar Morgan 477.8 Rhinitis, MD Mari Perennial, Allergy 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 478.1-4 Obstruction Of Nasal Airway Office Visit 05/15/2007 9:00a [place],After 05/20/07 Cezar Morgan 477.8 RhinitisMari MD Perennial, Allergy Office Visit 04/02/2007 2:15p [place],After 05/20/07 Cezar Morgan 477.8 RhinitisMari MD Perennial, Allergy 471.8 Polyps, Nasal/Sinus 389.2 Hearing Loss, Mixed/Conductive & Sensorineural 381.81 Dysfunction Of Eustachian Tube 474.12 Hypertrophy, Adenoids Office Visit 03/03/2007 2:45p [place],After 05/20/07 Cezar Morgan 473.0 SinusitisMari MD Chronic Maxillary 474.12 Hypertrophy, Adenoids 381.81 Dysfunction Of Eustachian Tube Office Visit 01/31/2007 [place],After Cezar Morgan 381.81 Dysfunction Of 3:15p 05/20/07 MD Mari Eustachian Tube 389.2 Hearing Loss, Mixed/Conductive & Sensorineural 471.8 Polyps, Nasal/Sinus 474.12 Hypertrophy, Adenoids Office Visit 12/02/2006 [place],After Cezar Morgan 381.81 Dysfunction Of 2:30p 05/20/07 MD Mari Eustachian Tube 389.2 Hearing Loss, Mixed/Conductive & Sensorineural Office Visit 04/24/2006 9:45a [place],After Cezar Morgan 471.8 Polyps, 05/20/07 MD Mari Nasal/Sinus 473.0 Sinusitis, Chronic Maxillary 461.0 Sinusitis, Acute Maxillary Office Visit 07/11/2005 1:30p [place],After Cezar Morgan 471.8 Polyps, 05/20/07 MD Mari Nasal/Sinus 780.57 Apnea, Sleep Not Elsewhere Classified /Unspecified 493.0 Code Needs 5TH Digit Office Visit 04/06/2005 1:30p [place],After 05/20/07 Cezar Morgan 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Mari MD Chronic Ethmoidal 471.8 Polyps, Nasal/Sinus 389.03 Hearing Loss, Conductive/Middle Ear Office Visit 05/09/2004 [place],After Julio Swift 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, 9:30a 05/20/07 Jacobo Arreola Chronic Ethmoidal 471.8 Polyps, Nasal/Sinus Office Visit 02/04/2004 [place],After Dank Rose 780.57 Apnea, Sleep Not 9:45a 05/20/07 Jacobo Pat Elsewhere Classified /Unspecified Office Visit 05/28/2003 [place],After Dank Rose 478.1 Ulcer Of Nasal 11:15a 05/20/07 Jacobo Pat Septum Plan of Treatment Future Appointment(s):06/02/2018 1:30 pm - Cezar Guerra MD at [place], After 05/20/802 10:30 am - Cezar Guerra MD at [place],After 05/20/07
[2018-06-26 17:34] LABS: CKMB ng/mL 2.5 ng/mL (0.6-6.3)
[2018-06-26 18:31] LABS: TSH (Thyroid Stimulating Horm) 2.78 mcIU/mL (0.34-5.60)
[2018-06-26] MEDS ORDERED: Acetaminophen TAB* 325 MG PO ONE (20:22)
[2018-06-26 21:13] VITALS: BP 137/71
== END 2018-06-26 21:13 | disposition home or self-care (01) ==
LOC: ED 16:33
DX: R07.89 Other chest pain (principal); R00.1 Bradycardia, unspecified; R61 Generalized hyperhidrosis; R42 Dizziness and giddiness; R11.0 Nausea; I25.119 Atherosclerotic heart disease of native coronary artery with unspecified angina pectoris; I10 Essential (primary) hypertension; Z95.5 Presence of coronary angioplasty implant and graft; Z79.01 Long term (current) use of anticoagulants; Z88.1 Allergy status to other antibiotic agents; Z88.0 Allergy status to penicillin; Z87.891 Personal history of nicotine dependence
CPT/HCPCS: 36415; 70450; 71045; 80053; 82550; 82553; 83605; 83735; 83880; 84443; 84484; 85025; 93005; 99284; A9270-GY

== ENCOUNTER 2018-10-26 10:28 | Emergency (ER) | payer MEDICARE, MEDICAID ==
--- NOTE | 2018-10-26 10:52 | ED ---
Back Pain - HPI Summary HPI Summary: A 53 y/o M presents to ED c/o lower bilateral back pain radiating to groin onset three days ago that worsened yesterday. Aggravating factors: movement. The pain is constant. He states it "feels like everything is shutting down." Associated sx: dysuria, dizziness, SOB. Denies bowel changes. - History of Current Complaint Chief Complaint: EDChestPainROMI Stated Complaint: CHEST PAIN PER EMS Time Seen by Provider: 10/26/18 10:44 Hx Obtained From: Patient Onset/Duration: Gradual Onset, Lasting Days, Still Present Timing: Constant Back Pain Location: Is Discrete @ - low back, Radiates To - groin Severity Initially: Moderate Severity Currently: Severe Pain Intensity: 10 Pain Scale Used: 0-10 Numeric Aggravating Symptom(s): Movement Associated Signs And Symptoms: Positive: Other - pos: dizziness, SOB, dysuria - Allergies/Home Medications Allergies/Adverse Reactions: Allergies Allergy/AdvReac Type Severity Reaction Status Date / Time amoxicillin [From Augmentin] Allergy Swelling Verified 04/23/18 17:15 clavulanic acid Allergy Swelling Verified 04/23/18 17:15 [From Augmentin] mushroom Allergy Rash Verified 04/23/18 17:15 Penicillins Allergy Anaphylatic Verified 04/23/18 17:15 Shock VINEGAR Allergy Intermediate Hives Uncoded 04/23/18 17:15 PMH/Surg Hx/FS Hx/Imm Hx Previously Healthy: No Endocrine/Hematology History: Reports: Hx Anticoagulant Therapy - xarelto Denies: Hx Diabetes, Hx Sickle Cell Disease, Hx Thyroid Disease Cardiovascular History: Reports: Hx Angina, Hx Cardiac Arrest, Hx Coronary Artery Disease, Hx Hypercholesterolemia, Hx Hypertension, Hx Myocardial Infarction, Other Cardiovascular Problems/Disorders - HEART DISEASE, CARDIAC EVENT MONITOR IMPLANTED Denies: Hx Congestive Heart Failure, Hx Pacemaker/ICD, Hx Valvular Heart Disease Respiratory History: Reports: Hx Asthma, Hx Sleep Apnea Denies: Hx Chronic Obstructive Pulmonary Disease (COPD) GI History: Reports: Hx Gastroesophageal Reflux Disease Denies: Hx Ulcer History: Reports: Hx Renal Disease - cysts bilateral kidneys , Other Problems/Disorders - bilat cyst on kidneys Musculoskeletal History: Reports: Hx Arthritis, Hx Back Problems, Other Musculoskeletal History - RANDEE Denies: Hx Scoliosis Sensory History: Reports: Hx Cataracts - right eye, Hx Contacts or Glasses, Hx Hearing Aid, Hx Hearing Problem Opthamlomology History: Reports: Hx Cataracts - right eye, Hx Contacts or Glasses Neurological History: Reports: Hx Seizures, Hx Transient Ischemic Attacks (TIA) Denies: Hx Dementia, Hx Headaches, Other Neuro Impairments/Disorders Psychiatric History: Reports: Hx Depression Denies: Hx Panic Disorder - Cancer History Hx Chemotherapy: No - Surgical History Surgery Procedure, Year, and Place: APR 2004 sinus [facility] [place] ;. 2007 left knee arthroscopy [facility] [place] ;. 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 [facility] [place] ;. 2014 LEFT REVISION TYMPANOPLASTY/ MASTOIDECTOMY [facility] [place] ;. 2011 HEART CATH - NO STENTS ;. 2010 HEART CATH WITH cardiac stents x 4 (PROMUS DRUG-ELUTING STENT OKAY IN NORMAL MODE ONLY, MAX 720 GAUSS/CM @ 1.5T) [facility] [place] ;. REVEAL LINQ EVENT MONITOR PLACED- 12/15/15- ED CAME OVER W/ [employer] MACHINE & DID A DOWNLOAD SO THAT NOTHING WOULD BE ERASED Hx Anesthesia Reactions: Yes - SEIZURE LIKE ACTIVITY; REINTUBATION AFTER LEFT EAR 2012 - Immunization History Date of Tetanus Vaccine: UTD Date of Influenza Vaccine: 03/05 Infectious Disease History: No Infectious Disease History: Denies: Hx Clostridium Difficile, Hx Hepatitis, Hx Human Immunodeficiency Virus (HIV), Hx of Known/Suspected MRSA, Hx Shingles, Hx Tuberculosis, Hx Known/ Suspected VRE, Hx Known/Suspected VRSA, History Other Infectious Disease, Traveled Outside the [place] in Last 30 Days - Family History Known Family History: Positive: Cardiac Disease, Hypertension, Diabetes - Social History Occupation: Disabled Lives: Alone Alcohol Use: None Hx Substance Use: No Substance Use Type: Reports: None Hx Tobacco Use: Yes Smoking Status (MU): Former Smoker Type: Cigarettes Length of Time of Smoking/Using Tobacco: 10-12 YRS Have You Smoked in the Last Year: No Review of Systems Positive: Shortness Of Breath Positive: dysuria Musculoskeletal: Other - pos: back pain Psychological: Other - pos: dizziness All Other Systems Reviewed And Are Negative: Yes Physical Exam - Summary Physical Exam Summary: Appearance: The patient is well-nourished in no acute distress and in no acute pain. Skin: The skin is warm and dry and skin color reflects adequate perfusion. HEENT: The head is normocephalic and atraumatic. The pupils are equal and reactive. The conjunctivae are clear and without drainage. Nares are patent and without drainage. Mouth reveals moist mucous membranes and the throat is without erythema and exudate. The external ears are intact. The ear canals are patent and without drainage. The tympanic membranes are intact. Neck: the neck is supple with full range of motion and non-tender. There are no carotid bruits. There is no neck vein distension. Respiratory: Chest is non-tender. Lungs are clear to auscultation and breath sounds are symmetrical and equal. Cardiovascular: Heart is regular rate and rhythm. There is no murmur or rub auscultated. There is no peripheral edema and pulses are symmetrical and equal. Abdomen: The abdomen is soft and non-tender. There are normal bowel sounds heard in all four quadrants and there is no organomegaly palpated. Musculoskeletal: There is no back tenderness noted. Extremities are non-tender with full range of motion. There is good capillary refill. There is no peripheral edema or calf tenderness elicited. Positive straight leg at 5 degrees. Neurological: Patient is alert and oriented to person, place and time. The patient has symmetrical motor strength in all four extremities. Cranial nerves are grossly intact. Deep tendon reflexes are symmetrical and equal in all four extremities. Psychiatric: The patient has an appropriate affect and does not exhibit any anxiety or depression. Triage Information Reviewed: Yes Vital Signs On Initial Exam: Initial Vitals Temp Pulse Resp BP Pulse Ox 96.6 F 58 20 158/97 98 10/26/18 10:35 10/26/18 10:35 10/26/18 10:35 10/26/18 10:35 10/26/18 10:35 Vital Signs Reviewed: Yes Diagnostics - Vital Signs Vital Signs Temp Pulse Resp BP Pulse Ox 10/26/18 10:35 96.6 F 58 20 158/97 98 - Laboratory Result Diagrams: 10/26/18 11:05 10/26/18 11:05 Lab Statement: Any lab studies that have been ordered have been reviewed, and results considered in the medical decision making process. - Radiology CXR Radiology Interpretation Completed By: Radiologist Summary of Radiographic Findings: IMPRESSION: No radiographic evidence for acute cardiopulmonary abnormality on this portable chest x-ray. ED provider has reviewed this report. - CT ABD/PEL CT CT Interpretation Completed By: Radiologist Summary of CT Findings: IMPRESSION: 1. There are no renal calculi or signs of hydronephrosis bilaterally. 2. There is no CT apparent acute inflammatory change of the gastrointestinal tract within the limitations of a CT without IV or oral contrast. 3. Mild splenomegaly similar to prior CT examinations. ED provider has reviewed this report. - EKG 1037 Cardiac Rate: Bradycardia - 58 EKG Rhythm: Sinus Bradycardia ST Segment: Normal - No STEMI Ectopy: None 1410 Cardiac Rate: Bradycardia - at 51 bpm EKG Rhythm: Sinus Bradycardia ST Segment: Normal - no STEMI Ectopy: None EKG Comparison: No Significant Change - from prior EKG on this date. Re-Evaluation - Re-Evaluation 1 Re-Evaluation Time: 16:11 Change: Improved Comment: Discussing results with patient and plans for discharge. Back Pain Course/Dx - Course Course Of Treatment: Mr. Glaser presented with low back pain radiating around the bilateral flanks into his groin. Initially this seemed to be musculoskeletal issue however he has multiple medical problems and is a very, very vague historian. His exam was remarkable for a positive straight leg raise bilaterally. He essentially would not sit up for me to do further exam. His workup was negative and my final impression was that this was musculoskeletal. I recommended a short course of Tramadol and follow-up with his PCP - Diagnoses Provider Diagnoses: Low back strain Discharge - Sign-Out/Discharge Documenting (check all that apply): Patient Departure - D/C Patient Received Moderate/Deep Sedation with Procedure: No - Discharge Plan Condition: Stable Disposition: HOME Prescriptions: traMADol TAB* [Ultram*] 50 mg PO Q6HR PRN #20 tab MDD 4 PRN Reason: Pain Patient Education Materials: Tramadol (By mouth), Low Back Strain (ED) Referrals: Carlin Chu MD [Primary Care Provider] - 3 Days Additional Instructions: Please return to the ED if you experience new or worsening symptoms. Follow up with your primary care provider in 2-3 days. - Billing Disposition and Condition Condition: STABLE Disposition: Home - Attestation Statements Document Initiated by Scribe: Yes Documenting Scribe: SooYmollyg Tyler Provider For Whom Scribe is Documenting (Include Credential): Dr. Zhao Cadet MD Scribe Attestation: I, Damián Scott, scribed for Dr. Zhao Cadet MD on 10/26/18 at 1828. Scribe Documentation Reviewed: Yes Provider Attestation: The documentation as recorded by the scribe, Damián Scott accurately reflects the service I personally performed and the decisions made by me, Dr. Zhao Cadet MD Status of Scribe Document: Viewed
[2018-10-26] MEDS ORDERED: Morphine 4 MG/ML VIAL (1 ml) 4 MG/ML VIAL IV ONE (10:55)
[2018-10-26 11:11] LABS: ABS Eosinophils 0.2 10^3/ul (0-0.6); ABS Lymphocytes 1.4 10^3/ul (1.0-4.8); ABS Monocytes 0.4 10^3/ul (0-0.8); ABS Neutrophils 2.9 10^3/ul (1.5-7.7); Hematocrit 44 % (42-52); Hemoglobin 14.2 g/dL (14.0-18.0); Mean Corpuscular HGB Conc 33 g/dL (31-36); Mean Corpuscular Hemoglobin 28 pg (27-31); Mean Corpuscular Volume 86 fL (80-94); Mean Platelet Volume 7.7 fL (7.4-10.4); Platelet Count 195 10^3/uL (150-450); Red Blood Count 5.07 10^6 /uL (4.18-5.48); Red Cell Distribution Width 15 % (10-15); White Blood Count 4.9 10^3/uL (3.5-10.8)
[2018-10-26 11:12] LABS: Eosinophil % 3.7 %; Nucleated Red Blood Cells % 0.1
[2018-10-26 11:17] LABS: INR 1.53 (0.82-1.09)
[2018-10-26 11:28] LABS: Albumin/Globulin Ratio 1.5 (1-3); BUN/Creatinine Ratio 9.9 (8-20); Calcium 9.3 mg/dL (8.6-10.3); EGFR African American 75.3 (>60); EGFR Non-African American 62.3 (>60); Globulin 2.7 g/dL (2-4); Total Bilirubin 0.5 mg/dL (0.2-1.0); Total Protein 6.7 g/dL (6.4-8.9)
[2018-10-26 13:53] LABS: Urine Appearance Clear; Urine Bacteria Absent (Absent); Urine Bilirubin Negative (Negative); Urine Blood 2+ (Negative); Urine Color Yellow; Urine Glucose Negative (Negative); Urine Ketones Negative (Negative); Urine Nitrite Negative (Negative); Urine Protein Negative (Negative); Urine Red Blood Cell 1+(3-5/hpf) (Absent); Urine Specific Gravity 1.014 (1.010-1.030); Urine Squamous Epithelial Cell Present (Absent); Urine Urobilinogen Negative (Negative); Urine White Blood Cell Trace(0-5/hpf) (Absent)
[2018-10-26 16:16] VITALS: BP 157/105
== END 2018-10-26 16:28 | disposition home or self-care (01) ==
LOC: ED 10:28
DX: S39.012A Strain of muscle, fascia and tendon of lower back, initial encounter (principal); X58.XXXA Exposure to other specified factors, initial encounter; R16.1 Splenomegaly, not elsewhere classified; I25.10 Atherosclerotic heart disease of native coronary artery without angina pectoris; I10 Essential (primary) hypertension; Z87.891 Personal history of nicotine dependence; Z79.02 Long term (current) use of antithrombotics/antiplatelets
CPT/HCPCS: 36415; 71045; 74176; 80053; 81003; 81015; 83605; 84484; 85025; 85610; 87086; 93005; 96374; 99284; J2270

== ENCOUNTER 2019-02-22 11:02 | Emergency (ER) | payer MEDICARE, MEDICAID ==
--- OUTSIDE RECORDS SUMMARY | 2019-02-22 11:21 | XMS REPORT | Continuity of Care Document ---
:1965 External Reference #:[id number] Author Name Carlin Chu M.D. (transmitted by agent of provider Antonia Pérez ) Address [address] [facility] [address] [facility], [place] [address] Care Team Providers Name Role Phone Nguyễn Alcaraz MD - Cardiovascular Care Team Information [place] Hand Disease Conor Flores MD - Care Team Information [place] Hand [phone] Cardiovascular Disease Zaki Gonzalez MD - Hematology Care Team Information [place] Problems Active Problems Provider Date Benign essential hypertension Carlin Chu M.D. Onset: 03/26/2011 Coronary arteriosclerosis Carlin Chu M.D. Onset: 03/26/2011 Pain in limb Carlin Chu M.D. Onset: 06/26/2011 Asthma without status asthmaticus Carlin Chu M.D. Onset: 07/25/2011 Peripheral venous insufficiency Carlin Chu M.D. Onset: 08/20/2011 Allergic asthma without status Carlin Chu M.D. Onset: 12/13/2011 asthmaticus Chronic ischemic heart disease Carlin Chu M.D. Onset: 07/16/2012 Hyperlipidemia Carlin Chu M.D. Onset: 07/16/2012 Palpitations Nguyễn Alcaraz M.D., [facility] Onset: 02/24/2013 Chronic ischemic heart disease Nguyễn Alcaraz M.D., [facility] Onset: 2012 Obstructive sleep apnea syndrome Carlin Chu M.D. Onset: 06/18/2013 Morbid obesity Carlin Chu M.D. Onset: 06/18/2013 Obesity Nguyễn Alcaraz M.D., [facility] Onset: 12/22/2013 Myalgia & Myositis Unspecified Nguyễn Alcaraz M.D., [facility] Onset: 2013 Premature beats Nguyễn Alcaraz M.D., [facility] Onset: 11/14/2015 Transient cerebral ischemia Nguyễn Alcaraz M.D., [facility] Onset: 11/14/2015 Cerebral artery occlusion Nguyễn Alcaraz M.D., [facility] Onset: 11/14/2015 Localized, primary osteoarthritis Charlene Fernandes M.D. Onset: 06/18/2016 Impaired fasting glycaemia Carlin Chu M.D. Onset: 07/26/2016 Chest pain Nguyễn Alcaraz M.D., [facility] Onset: 11/19/2016 Mild intermittent asthma Carlin Chu M.D. Onset: 01/29/2017 Seizure Bo Loaiza M.D. Onset: 07/05/2017 Altered mental status Bo Loaiza M.D. Onset: 09/19/2017 Pulmonary embolism Maria G Schultz, [facility] Onset: 02/04/2018 Sleep apnea Bo Loaiza M.D. Onset: 05/12/2018 Social History Type Date Description Comments Sex Unknown Cigarette Use Quit - Age 25 ETOH Use Denies alcohol use Tobacco Use Start: Unknown Patient is a former quit smoking End: Unknown smoker cigarettes 1989; 1ppd max, began age 14 Recreational Drug Use Denies Drug Use Smoking Status Reviewed: 01/13/19 Patient is a former quit smoking smoker cigarettes 1989; 1ppd max, began age 14 Exercise Type/Frequency Exercises sporadically walks on occ Allergies, Adverse Reactions, Alerts Active Allergies Reaction Severity Comments Date Augmentin 06/02/2008 Penicillin swollen tongue 03/26/2011 Mushroom swelling, hives 02/24/2013 Vinegar swelling 02/24/2013 Medications Active Medications SIG Qnty Indications Ordering Date Provider Xarelto 1 by mouth every 30tabs Carlin Morgan 03/06/2018 20mg Tablets day Jacobo Chu Klor-Con M20 1 tablet PO daily 90tabs Nguyễn Alcaraz, 12/31/2016 20Meq Jacobo, FACC, Tablets ER FSCAI Bystolic 1 by mouth once a 90tabs Nguyễn Alcaraz, 12/04/2016 10mg Tablets day MCarlos, FACC, FSCAI Cpap Mask And cpap supplies - un Carlin Morgan 05/15/2016 Supplies Kimberley roche M.D. Device cushion, tubing, filters, for sleep apnea dx g47.33 Metoprolol Succinate 1 by mouth every 90tabs Nguyễn Alcaraz, 01/27/2016 ER day MCarlos, DONALDC, 50mg Tablets ER 24HR [facility] Proair HFA inhale two puffs 8.500gm Carlin Moragn 03/09/2015 108(90Base) by mouth 4 times Jacobo Chu mcg/Act Aerosol daily as needed Compression Stockings use on both legs 1Pair 782.3 Carlin Morgan 09/30/2014 for chronic edema Jacobo Chu Misc Triamterene/Hydrochlo Take 1 Capsule By 90caps Carlin Morgan 06/26/2013 rothiazide Mouth Once Daily Jacobo Chu 37.5-25mg Capsules Cpap Machine With 1un Carlin Morgan 02/13/2013 Setting 16 CM Water Jacobo Chu Nitrostat Dissolve One 25tabs Rica Lucy, 07/11/2012 0.4mg Tablets Tablet Under The M.DSandie Sub Tongue Every 5 Minutes as Needed For Chest Pain. DO Not Exceed A Total Of 3 Doses In 15 Minute Famotidine Take One Tablet 60tabs Carlin ESandie 20mg Tablets By Mouth Twice Jacobo Chu Daily Albuterol Sulfate 1 vial via Carlin E. nebulizer 4 times Jacobo Chu (2.5mg/3ML) 0.083% daily as needed Nebulizer Atorvastatin Calcium 1 by mouth every 90tabs Carlin E. day Jacobo Chu 20mg Tablets Advair Diskus inhale 1 dose by 60units Carlin E. mouth twice daily Jacobo Chu 250-50mcg/Dose Aerosol Aspirin 81 Low Dose 1 by mouth every Unknown day 81mg Chewtabs Immunizations CPT Code Status Date Vaccine Lot # [id number] Given 01/29/2017 Influenza Virus Vaccine, Quadrivalent, Split, [id number] Preservative Free 91713 Given 05/15/2016 Influ Virus Vaccine, Quadrivalent, Split Virus, [id number] [address] Given 03/31/2015 Influenza Virus Vaccine, Quadrivalent, Split, [id number] Preservative Free 60361 Given 09/30/2014 Tdap - Tetanus/Diptheria/Acellular Pertussis [id number] 59954 Given 02/05/2014 Influenza Virus Vaccine, Quadrivalent, Split, [id number] Preservative Free [id number] Given 06/18/2013 Fluvirin Im 3Yrs And Older [id number] Q2038 Given 02/07/2012 Fluzone Vaccine [id number] 01162 Given 12/13/2011 Pneumonia Vaccine [id number] 78672 Given 03/07/2010 Influenza Virus 3Yrs & Over [id number] 35317 Given 04/22/2009 Influenza Virus Vaccine, Pandemic Formulation 57498 Given 04/22/2009 Administration Swine Flu Shot 12018 Given Unknown Tetanus And Diptheria (Td) For Adult Use Preservative Free Vital Signs Date Vital Result Comment 01/13/2019 1:05pm Height 69 inches 5'9" Weight 345.00 lb Heart Rate 63 /min BP Systolic Sitting 138 mmHg BP Diastolic Sitting 75 mmHg O2 % BldC Oximetry 97 % BMI (Body Mass Index) 50.9 kg/m2 11/10/2018 10:24am Height 69 inches 5'9" Weight 341.00 lb Heart Rate 58 /min BP Systolic 138 mmHg BP Diastolic 88 mmHg BMI (Body Mass Index) 50.4 kg/m2 Results Test Date Facility Test Result H/L Range Note Laboratory test 01/10/2019 [facility] Troponin-I 0.00 ng/mL < 0.04 [address] (TnI) [place] [address] [phone] CBC Auto Diff 01/10/2019 [facility] White Blood 5.2 10^3/uL Normal 3.5-10.[address] [place] [place] [address] [phone] Red Blood Count 5.26 10^6/uL Normal 4.18-5.48 Hemoglobin 14.8 g/dL Normal 14.0-18.0 Hematocrit 45 % Normal 42-52 Mean Corpuscular Volume 85 fL Normal 80-94 Mean Corpuscular Hemoglobin 28 pg Normal 27-31 Mean Corpuscular HGB Conc 33 g/dL Normal 31-36 Red Cell Distribution Width 15 % Normal 10-15 Platelet Count 215 10^3/uL Normal 150-450 Mean Platelet Volume 7.9 fL Normal 7.4-10.4 Abs Neutrophils 3.3 10^3/uL Normal 1.5-7.7 Abs Lymphocytes 1.2 10^3/uL Normal 1.0-4.8 Abs Monocytes 0.5 10^3/uL Normal 0-0.8 Abs Eosinophils 0.2 10^3/uL Normal 0-0.6 Abs Basophils 0.1 10^3/uL Normal 0-0.2 Abs Nucleated RBC 0.0 10^3/uL Granulocyte % 63.3 % Lymphocyte % 23.0 % Monocyte % 9.3 % Eosinophil % 3.0 % Basophil % 1.4 % Nucleated Red Blood Cells % 0.0 Laboratory test 01/10/2019 [facility] Partial 55.0 High 26.0- 38.[address] [place] [address] PTT [phone] Lactic Acid 1.3 mmol/L Normal 0.5-2.0 2 B-Type Natriuretic Peptide BNP 95 pg/mL <=100 Comp Metabolic 01/10/2019 [facility] Sodium 139 mmol/L Normal 135-[address] [place], [place] [id number] [phone] Potassium 3.9 mmol/L Normal 3.5-5.0 Chloride 107 mmol/L Normal 101-111 Co2 Carbon Dioxide 27 mmol/L Normal 22-32 Anion Gap 5 mmol/L Normal 2-11 Glucose 107 mg/dL High 70-100 Blood Urea Nitrogen 11 mg/dL Normal 6-24 Creatinine 1.16 mg/dL Normal 0.67-1.17 BUN/Creatinine Ratio 9.5 Normal 8-20 Calcium 9.6 mg/dL Normal 8.6-10.3 Total Protein 7.0 g/dL Normal 6.4-8.9 Albumin 4.2 g/dL Normal 3.2-5.2 Globulin 2.8 g/dL Normal 2-4 Albumin/Globulin Ratio 1.5 Normal 1-3 Total Bilirubin 0.50 mg/dL Normal 0.2-1.0 Alkaline Phosphatase 111 U/L High 34-104 Alt 28 U/L Normal 7-52 Ast 17 U/L Normal 13-39 Egfr Non- 65.4 >60 Egfr 79.1 >60 3 Laboratory test 01/10/2019 [facility] Magnesium 2.0 mg/dL Normal 1.9-2.[address] [place] [address] [phone] Creatine Kinase(CK) 335 U/L High 10-223 Troponin-I (TnI) 0.01 ng/mL <0.04 4 CKMB 01/10/2019 [facility] CKMB 3.1 ng/mL Normal 0.6-6.[address] ng/mL [place], [place] [id number] [phone] Laboratory test 01/10/2019 [facility] TSH 3.10 Normal 0.34- 5.60 finding [address] [facility] (Thyroid mcIU/[place] [address] Stim Rnqz) [phone] Urinalysis 01/10/2019 [facility] Urine Yellow Profile [address] [facility] [place] [place] [address] [phone] Urine Appearance Clear Urine Specific [place] 1.012 Normal 1.010-1.030 Urine pH 6.0 Normal 5-9 Urine Urobilinogen Negative Negative Urine Ketones Negative Negative Urine Protein Negative Negative Urine Leukocytes Negative Negative Urine Blood 2+ Abnormal Negative Urine Nitrite Negative Negative Urine Bilirubin Negative Negative Urine Glucose Negative Negative Urine White Blood Cell Absent Absent Urine Red Blood Cell 2+(6-10/hpf) Abnormal Absent Urine Bacteria Absent Absent Laboratory test 10/26/2018 [facility] Troponin-I (TnI) 0.00 ng/ mL <0.[address] [place] [address] [phone] Urinalysis 10/26/2018 [facility] Urine Color Yellow Profile [address] [place] [address] [phone] Urine Appearance Clear Urine Specific [place] 1.014 Normal 1.010-1.030 Urine pH 5.0 Normal 5-9 Urine Urobilinogen Negative Negative Urine Ketones Negative Negative Urine Protein Negative Negative Urine Leukocytes Negative Negative Urine Blood 2+ Abnormal Negative Urine Nitrite Negative Negative Urine Bilirubin Negative Negative Urine Glucose Negative Negative Urine White Blood Cell Trace(0-5/hpf) Absent Urine Red Blood Cell 1+(3-5/hpf) Abnormal Absent Urine Bacteria Absent Absent Urine Squamous Epithelial Cell Present Abnormal Absent Urine Culture And 10/26/2018 [facility] Urine SEE RESULT [address] [place] [address] [phone] Inr/Protime 10/26/2018 [facility] Inr 1.53 High 0.82- [address] 1.09 [place] [id number] [phone] CBC Auto Diff 10/26/2018 [facility] White Blood 4.9 10^3/uL Normal 3.5-[address] Count 0.8 [place] [address] [phone] Red Blood Count 5.07 10^6/uL Normal 4.18-5.48 Hemoglobin 14.2 g/dL Normal 14.0-18.0 Hematocrit 44 % Normal 42-52 Mean Corpuscular Volume 86 fL Normal 80-94 Mean Corpuscular Hemoglobin 28 pg Normal 27-31 Mean Corpuscular HGB Conc 33 g/dL Normal 31-36 Red Cell Distribution Width 15 % Normal 10-15 Platelet Count 195 10^3/uL Normal 150-450 Mean Platelet Volume 7.7 fL Normal 7.4-10.4 Abs Neutrophils 2.9 10^3/uL Normal 1.5-7.7 Abs Lymphocytes 1.4 10^3/uL Normal 1.0-4.8 Abs Monocytes 0.4 10^3/uL Normal 0-0.8 Abs Eosinophils 0.2 10^3/uL Normal 0-0.6 Abs Basophils 0.0 10^3/uL Normal 0-0.2 Abs Nucleated RBC 0.0 10^3/uL Granulocyte % 59.0 % Lymphocyte % 28.0 % Monocyte % 8.6 % Eosinophil % 3.7 % Basophil % 0.7 % Nucleated Red Blood Cells % 0.1 Comp Metabolic 10/26/2018 [facility] Sodium 139 mmol/L Normal 135-[address] [place] [address] [phone] Potassium 4.0 mmol/L Normal 3.5-5.0 Chloride 108 mmol/L Normal 101-111 Co2 Carbon Dioxide 27 mmol/L Normal 22-32 Anion Gap 4 mmol/L Normal 2-11 Glucose 109 mg/dL High 70-100 Blood Urea Nitrogen 12 mg/dL Normal 6-24 Creatinine 1.21 mg/dL High 0.67-1.17 BUN/Creatinine Ratio 9.9 Normal 8-20 Calcium 9.3 mg/dL Normal 8.6-10.3 Total Protein 6.7 g/dL Normal 6.4-8.9 Albumin 4.0 g/dL Normal 3.2-5.2 Globulin 2.7 g/dL Normal 2-4 Albumin/Globulin Ratio 1.5 Normal 1-3 Total Bilirubin 0.50 mg/dL Normal 0.2-1.0 Alkaline Phosphatase 96 U/L Normal 34-104 Alt 24 U/L Normal 7-52 Ast 16 U/L Normal 13-39 Egfr Non- 62.3 >60 Egfr 75.3 >60 8 Laboratory test 10/26/2018 [facility] Troponin-I (TnI) 0.00 ng/ mL <0.04 9 finding [address] [place] [address] [phone] Lactic Acid 1.4 mmol/L Normal 0.5-2.0 10 Lipid Profile 10/22/2018 [facility] Triglycerides 169 mg/dL 11 (Trig/Chol/HDL) [address] [place] [address] [phone] Cholesterol 131 mg/dL 12 HDL Cholesterol 32.2 mg/dL 13 LDL Cholesterol 65 mg/dL 14 1 Troponin-I testing on Plasma Separator Tubes (PST) has a known false positive rate of 0.20-0.40%. All positive troponins reflex immediately to secondary confirmatory testing. Using the Scrip-t DxI 800 Access Immunoassay systems, the 99th percentile upper reference limit was demonstrated to be < 0.03 ng/mL. 2 [facility] Severe Sepsis and Septic Shock Management Bundle Measure requires all lactic acids initially measuring >2.0 mmol/L be repeated. 3 Because ethnic data is not always [...] 5 Kidney failure <15 (or dialysis) 4 Troponin-I testing on Plasma Separator Tubes (PST) has a known false positive rate of 0.20-0.40%. All positive troponins reflex immediately to secondary confirmatory testing. Using the Scrip-t DxI 800 Access Immunoassay systems, the 99th percentile upper reference limit was demonstrated to be < 0.03 ng/mL. 5 Troponin-I testing on Plasma Separator Tubes (PST) has a known false positive rate of 0.20-0.40%. All positive troponins reflex immediately to secondary confirmatory testing. Using the Unicel DxI 800 Access Immunoassay systems, the 99th percentile upper reference limit was demonstrated to be < 0.03 ng/mL. 6 SEE RESULT BELOW Name: CAS GLASER : [address]: Zhao Cadet MD Acct: [id number] Unit: [id number] AGE: 53 Location: ED Re10/26/18 SEX: M Status: DEP ER SPEC: [id number] DAPHNE: 10/26/[address] [facility] [address]: Zhao Cadet MD REQ: [id number] RECD: 10/26/18 STATUS: GABE GALVAN DR: Carlin Chu III, MD _ [facility] ORDERED: Urine Culture Procedure Result Reported Site Urine Culture Final 10/27/18- 1227 ML No growth of clinically significant organisms * ML - Main Lab . END OF REPORT DEPARTMENT OF PATHOLOGY, [address] [place] [address] Eliud Carson M.D. Director [facility] # [id number] 7 Standard intensity warfarin therapeutic range: 2.0-3.0 High intensity warfarin therapeutic range: 2.5-3.5 8 Because ethnic data is not always readily [...] 15-29 5 Kidney failure <15 (or dialysis) 9 Troponin-I testing on Plasma Separator Tubes (PST) has a known false positive rate of 0.20-0.40%. All positive troponins reflex immediately to secondary confirmatory testing. Using the Scrip-t DxI 800 Access Immunoassay systems, the 99th percentile upper reference limit was demonstrated to be < 0.03 ng/mL. 10 [facility] Severe Sepsis and Septic Shock Management Bundle Measure requires all lactic acids initially measuring >2.0 mmol/L be repeated. 11 Desirable: <150 Borderline High: 150-199 High: 200-499 Very High: >500 12 Desirable: <200 Borderline High: 200-239 High: >239 13 Low: <40 Desirable: 40-60 High: >60 14 Desirable: <100 Near Optimal: 100-129 Borderline High: 130-159 High: 160-189 Very High: >189 Procedures Date Code Description Status 10/05/2015 341097328 Diabetic Retinal Eye Exam Completed 02/08/2015 29066581 Colonoscopy Completed Medical Devices Description No Information Available Encounters Type Date Location Provider Dx Diagnosis Office Visit 11/10/2018 [facility] Bo Loaiza R51 Headache 10:45a [facility] Office Visit 10/21/2018 [facility] Carlin Chu, I10 Essential ( primary) 10:00a Medicine - [facility] Jacobo hypertension I25.10 Athscl heart disease of [place] coronary artery w/o ang pctrs G47.30 Sleep apnea, unspecified E66.01 Morbid (severe) obesity due to excess calories Assessments Date Code Description Provider 01/13/2019 M54.5 Low back pain Carlin Chu M.D. 11/10/2018 R51 Headache Bo Loaiza M.D. 10/21/2018 I10 Essential (primary) hypertension Carlin Chu M.D. 10/21/2018 I25.10 Atherosclerotic heart disease of [place] Carlin Chu M.D. coronary artery with 10/21/2018 G47.30 Sleep apnea, unspecified Carlin Chu M.D. 10/21/2018 E66.01 Morbid (severe) obesity due to excess Carlin Chu M.D. calories Plan of Treatment Future Appointment(s):05/26/2019 10:15 am - Bo Loaiza M.D. at [facility]04/23/2019 10:20 am - Carlin Chu M.D. at [facility] Internal Medicine - [facility]01/13/2019 - Carlin Chu M.D.M54.5 Low back painNew Therapy:Physical TherapyComments:Chronic R low back pain with radiation down R leg. No focal neuromuscular deficits noted. CT scan in October noted multilevel spinal DDD changes. Back x-rays and PT eval suggested. Analgesic Rx limited with ongoing Xarelto Rx. Discussed possible Pain Clinic eval for back injection Rx Functional Status Description No Information Available Mental Status Description No Information Available Referrals Description No Information Available
--- OUTSIDE RECORDS SUMMARY | 2019-02-22 11:21 | XMS REPORT | Continuity of Care Document ---
:1965 External Reference #:[id number] Author Name Cezar Guerra MD Address [address] [place] [address] Care Team Providers Name Role Phone Carlin Chu MD Care Team Information Payroll And Benefits Manager [phone] Nguyễn Alcaraz M.D. - [employer], Care Team Information Payroll And Benefits Manager [phone] Cardiovascular Problems Active Problems Provider Date Acute pharyngitis Cezar Guerra MD Onset: 02/23/2011 Perforation of tympanic membrane Cezar Guerra MD Onset: 02/23/2011 Dysfunction of eustachian tube Cezar Guerra MD Onset: 02/23/2011 Middle ear conductive hearing loss Cezar Guerra MD Onset: 02/23/2011 Sensorineural hearing loss Cezar Guerra MD Onset: 02/23/2011 Disorder of nasal cavity Mikala Cordova [employer] Onset: 02/23/2011 Gastroesophageal reflux disease Mikala Cordova [employer] Onset: 02/23/2011 Allergic asthma without status asthmaticus Mikala Cordova [employer] Onset: 2010 Peptic reflux disease Mikala Cordova [employer] Onset: 02/23/2011 Allergic rhinitis Mikala Cordova [employer] Onset: 02/23/2011 Impacted cerumen Marguerite Muller PA-C Onset: 04/15/2018 Chronic tympanitis Marguerite Muller PA-C Onset: 04/15/2018 Social History Type Date Description Comments Sex Unknown Tobacco Use Start: Unknown End: Former Cigarette [...] a former smoker Allergies, Adverse Reactions, Alerts Active Allergies Reaction Severity Comments Date Augmentin XR 05/04/2008 Penicillins neck, tongue swells 07/23/2012 Inactive Allergies NKDA 09/13/2004 Medications Active Medications SIG Qnty Indications Ordering Date Provider Omeprazole 40mg po bid for 1 60caps 530.81 Julio Swift 11/03/2010 40mg month for Strominger, Capsules [facility] Advair Hfa 2 Puffs bid With 1units 478.19 Julio Swift 10/23/2007 115/21 Spacer Romi Arreola M.D. Please Provide Spacer Famotidine Carlin Chu 20mg Tablets Xarelto Carlin Chu 20mg Tablets Clopidogrel Bisulfate Carlin Chu 75mg Tablets Atorvastatin Calcium Nguyễn Alcaraz MSandieDSandie 20mg Tablets Proair HFA Carlin Chu 108(90Base) mcg/Act Aerosol Advair Diskus Carlin Chu 250-50mcg/Dose Aerosol Triamterene/Hydrochlo Carlin Chu rothiazide 37.5-25mg Capsules Metoprolol Succinate Unknown ER 50mg Tablets ER 24HR Klor-Con M20 Nguyễn Alcaraz 20Meq M.DSandie Tablets ER Atorvastatin Calcium 1 po qd Unknown 40mg Tablets Ranexa 1 po bid Unknown 500mg Tablets ER 12HR Nitroglycerin prn Only Carlin Chu ?mg Aspirin Unknown 81mg Tablets Bystuzair qd Unknown 5mg Albuterol Inhalation 2 Puffs Q4H prn 2units Cezar Morgan MD Mari 90mcg/Dose Aerosol Immunizations CPT Code Status Date Vaccine Lot # [id number] Ordered 02/17/2015 Influenza Virus Vaccine, 3 Years Of Age And Above, Intramuscular 30876 Given Unknown Influenza Virus Vaccine, 3 Years Of Age And Above, Intramuscular Vital Signs Date Vital Result Comment 02/05/2019 10:11am Weight 344.00 lb Weight 156.038 kg Height 69 inches 5'9" Height in cm's 175.3 cm BMI (Body Mass Index) 50.8 kg/m2 11/04/2018 10:07am Weight 347.00 lb Weight 157.399 kg Height 69 inches 5'9" Height in cm's 175.3 cm BMI (Body Mass Index) 51.2 kg/m2 Results Description No Information Available Procedures Description No Information Available Medical Devices Description No Information Available Encounters Type Date Location Provider Dx Diagnosis Office Visit 02/05/2019 [place],After Cezar Morgan H70.92 Unspecified 10:30a 05/20/07 MD Mari mastoiditis, left ear Office Visit 11/04/2018 [place] Cezar Morgan H70.92 Unspecified 10:30a 05/20/07 MD Mari mastoiditis, left ear Assessments Date Code Description Provider 02/05/2019 H70.92 Unspecified mastoiditis, left ear Cezar Guerra MD 11/04/2018 H70.92 Unspecified mastoiditis, left ear Cezar Guerra MD Plan of Treatment Future Appointment(s):06/09/2019 11:00 am - Cezar Guerra MD at [place], After 05/20/808 - Cezar Guerra MDH70.92 Unspecified mastoiditis, left ear Functional Status Description No Information Available Mental Status Description No Information Available Referrals Description No Information Available
--- NOTE | 2019-02-22 14:15 | ED ---
GI/ HPI - HPI Summary HPI Summary: 53 year old male presents to the ED with a painful lump the size of a golfball on near anus that developed several days ago. He gets sharp pain when coughing; worse when sitting down. Pain is rated a 9/10 in severity. No dysuria. History of CAD, [place] (2011), asthma. Does not drink alcohol, smoke tobacco, or do recreational drugs. Medications reviewed. Allergies noted. - History of Current Complaint Chief Complaint: EDExtremityLower Time Seen by Provider: 02/22/19 13:44 Stated Complaint: KNEE PAIN PER EMS Hx Obtained From: Patient Onset/Duration: Started Days Ago Timing: Constant, Lasting Days Severity: Severe Current Severity: Severe Pain Intensity: 6 Location of Pain: Rectal, Gluteum Associated Signs and Symptoms: Positive: External Hemorrhoid Aggravating Factor(s): Coughing, Sitting Alleviating Factor(s): Nothing - Additional Pertinent History Primary Care Physician: ZURI - Allergy/Home Medications Allergies/Adverse Reactions: Allergies Allergy/AdvReac Type Severity Reaction Status Date / Time amoxicillin [From Augmentin] Allergy Swelling Verified 02/22/19 11:07 clavulanic acid Allergy Swelling Verified 02/22/19 11:07 [From Augmentin] mushroom Allergy Rash Verified 02/22/19 11:07 Penicillins Allergy Anaphylatic Verified 02/22/19 11:07 Shock VINEGAR Allergy Intermediate Hives Uncoded 02/22/19 11:07 PMH/Surg Hx/FS Hx/Imm Hx Endocrine/Hematology History: Reports: Hx Anticoagulant Therapy - xarelto Denies: Hx Diabetes, Hx Sickle Cell Disease, Hx Thyroid Disease Cardiovascular History: Reports: Hx Angina, Hx Cardiac Arrest, Hx Coronary Artery Disease, Hx Hypercholesterolemia, Hx Hypertension, Hx Myocardial Infarction, Other Cardiovascular Problems/Disorders - HEART DISEASE, CARDIAC EVENT MONITOR IMPLANTED Denies: Hx Congestive Heart Failure, Hx Pacemaker/ICD, Hx Valvular Heart Disease Respiratory History: Reports: Hx Asthma, Hx Sleep Apnea Denies: Hx Chronic Obstructive Pulmonary Disease (COPD) GI History: Reports: Hx Gastroesophageal Reflux Disease Denies: Hx Ulcer History: Reports: Hx Renal Disease - cysts bilateral kidneys , Other Problems/Disorders - bilat cyst on kidneys Musculoskeletal History: Reports: Hx Arthritis, Hx Back Problems, Other Musculoskeletal History - RANDEE Denies: Hx Scoliosis Sensory History: Reports: Hx Cataracts - right eye, Hx Contacts or Glasses, Hx Hearing Aid, Hx Hearing Problem Opthamlomology History: Reports: Hx Cataracts - right eye, Hx Contacts or Glasses Neurological History: Reports: Hx Seizures, Hx Transient Ischemic Attacks (TIA) Denies: Hx Dementia, Hx Headaches, Other Neuro Impairments/Disorders Psychiatric History: Reports: Hx Depression Denies: Hx Panic Disorder - Cancer History Hx Chemotherapy: No - Surgical History Surgery Procedure, Year, and Place: APR 2004 sinus [facility] [place] ;. 2007 left knee arthroscopy [facility] [place] ;. 2012 left tympanoplasty WITH STAPES IMPLANT ([employer] MALLEOUS HEAD SERIAL # [id number] - PER [employer] INFORMATION SENT TO MRI ON ; IMPLANT IS STAINLESS STEEL STATES SOME DEGREE OF MAGNETISM TESTED MRI SAFE AT 1.5T ONLY - DR ANAYA APPROVED THIS INFORMATION FOR 1.5T ONLY). [facility] [place] ;. 2014 LEFT REVISION TYMPANOPLASTY/ MASTOIDECTOMY [facility] [place] ;. 2011 HEART CATH - NO STENTS ;. 2010 HEART CATH WITH cardiac stents x 4 (PROMUS DRUG-ELUTING STENT OKAY IN NORMAL MODE ONLY, MAX 720 GAUSS/CM @ 1.5T) [facility] [place] ;. REVEAL LINQ EVENT MONITOR PLACED- 12/15/15- ED CAME OVER W/ [employer] MACHINE & DID A DOWNLOAD SO THAT NOTHING WOULD BE ERASED Hx Anesthesia Reactions: Yes - SEIZURE LIKE ACTIVITY; REINTUBATION AFTER LEFT EAR 2012 - Immunization History Date of Tetanus Vaccine: UTD Date of Influenza Vaccine: 03/05 Infectious Disease History: No Infectious Disease History: Denies: Hx Clostridium Difficile, Hx Hepatitis, Hx Human Immunodeficiency Virus (HIV), Hx of Known/Suspected MRSA, Hx Shingles, Hx Tuberculosis, Hx Known/ Suspected VRE, Hx Known/Suspected VRSA, History Other Infectious Disease, Traveled Outside the [place] in Last 30 Days - Family History Known Family History: Positive: Cardiac Disease, Hypertension, Diabetes - Social History Alcohol Use: None Hx Substance Use: No Substance Use Type: Reports: None Hx Tobacco Use: Yes Smoking Status (MU): Former Smoker Type: Cigarettes Length of Time of Smoking/Using Tobacco: 10-12 YRS Have You Smoked in the Last Year: No Review of Systems Positive: Cough Positive: pain - by anus. Negative: dysuria Positive: Other - bulge by anus. All Other Systems Reviewed And Are Negative: Yes Physical Exam - Summary Physical Exam Summary: Constitutional: Well-developed, Well-nourished, Alert. (-) Distressed Skin: Warm, Dry HENT: Normocephalic; Atraumatic Eyes: Conjunctiva normal Neck: Musculoskeletal ROM normal neck. (-) JVD, (-) Stridor, (-) Tracheal deviation Cardio: Rhythm regular, rate normal, Heart sounds normal; Intact distal pulses; Radial pulses are 2+ and symmetric. (-) Murmur Pulmonary/Chest wall: Effort normal. (-) Respiratory distress, (-) Wheezes, (-) Rales Abd: Soft, (-) tenderness, (-) Distension, (-) Guarding, (-) Rebound Musculoskeletal: (-) Edema Lymph: (-) Cervical adenopathy Neuro: Alert, Oriented x3 Psych: Mood and affect Normal Triage Information Reviewed: Yes Vital Signs On Initial Exam: Initial Vitals Temp Pulse Resp BP Pulse Ox 96.9 F 60 12 180/120 96 02/22/19 11:03 02/22/19 11:03 02/22/19 11:03 02/22/19 11:03 02/22/19 11:03 Vital Signs Reviewed: Yes Procedures - Sedation Patient Received Moderate/Deep Sedation with Procedure: No Diagnostics - Vital Signs Vital Signs Temp Pulse Resp BP Pulse Ox 02/22/19 13:09 97.6 F 58 18 145/84 97 02/22/19 11:03 96.9 F 60 12 180/120 96 - Laboratory Lab Statement: Any lab studies that have been ordered have been reviewed, and results considered in the medical decision making process. GIGU Course/Dx - Course Course Of Treatment: Patient came in complaining of a lump near his anus. Patient had no abnormalities on his physical exam consistent with his history. Patient potentially could be having hemorrhoid or partial rectal prolapse that resolved spontaneously. Patient was started on hemorrhoid management given surgery clinic follow-up in case that is the issue. - Diagnoses Provider Diagnoses: Hemorrhoid Discharge ED - Sign-Out/Discharge Documenting (check all that apply): Patient Departure - discharge - Discharge Plan Condition: Stable Disposition: HOME Prescriptions: Hydrocortisone SUPP* [Anusol HC Supp*] 25 mg CA QAM 7 Days #7 supp Patient Education Materials: Hemorrhoids (ED) Referrals: Carlin Chu MD [Primary Care Provider] - Additional Instructions: Follow up in clinic. Keep doing Sitz baths. Use your medicine as prescribed. Return to the emergency room for new or worsening symptoms. - Billing Disposition and Condition Condition: STABLE Disposition: Home - Attestation Statements Document Initiated by Katelynn: Yes Documenting Scribe: Fredy Byrd Provider For Whom Katelynn is Documenting (Include Credential): Beto Cagle MD. Scribe Attestation: Fredy Kim, scribed for Beto Cagle MD. on 02/22/19 at 2114. Scribe Documentation Reviewed: Yes Provider Attestation: The documentation as recorded by the cliftonibeFredy accurately reflects the service I personally performed and the decisions made by , Beto Cagle MD. Status of Scribe Document: Viewed
[2019-02-22 14:26] VITALS: BP 125/71
== END 2019-02-22 14:24 | disposition home or self-care (01) ==
LOC: ED 11:02
DX: K64.9 Unspecified hemorrhoids (principal); Z87.891 Personal history of nicotine dependence; R05 Cough; Z79.01 Long term (current) use of anticoagulants; I25.2 Old myocardial infarction; I25.10 Atherosclerotic heart disease of native coronary artery without angina pectoris; I10 Essential (primary) hypertension; E78.00 Pure hypercholesterolemia, unspecified; K21.9 Gastro-esophageal reflux disease without esophagitis; F32.9 Major depressive disorder, single episode, unspecified
CPT/HCPCS: 99282

== ENCOUNTER 2019-07-13 18:39 | Observation (INO) | payer MEDICARE, MEDICAID ==
--- NOTE | 2019-07-13 19:20 | ED ---
HPI Chest Pain - HPI Summary HPI Summary: The patient is a 53-year-old male arriving via ambulance to [facility] emergency department with a chief complaint of diffuse chest pain onset this morning which resolved and then returned. He reports that he did not wake up with the pain but had been sitting down and noticed fluttering palpitations in the chest accompanied by mild pain. Once the symptoms subsided, he went downstairs to work at the [employer], and while he did experience intermittent episodes of the symptoms he was previously having. He then went back upstairs and sat down but fell asleep. When he woke up, the pain returned and has been constant and worsening since. The sharp pain is currently rated 10/10 in severity. He also became diaphoretic and then dizzy. He denies any shortness of breath or abdominal pain. He endorses mild bilateral lower extremity edema. He did not take any medications for treatment prior to arrival. He is medication-compliant for his daily medicines. Past medical history significant for angina, cardiac arrest, CAD, hyperlipidemia, hypertension, SD, asthma, sleep apnea, GERD, renal cysts, arthritis, seizures, TIA. Former smoker, no alcohol use, no substance use. Medications reviewed. Allergies noted. Home Medications Medication Instructions Recorded Confirmed Type Nebivolol TAB (NF) [Bystolic TAB 10 mg PO DAILY 09/20/16 07/13/19 History (NF)] Nitroglycerin TAB 0.4 MG* 0.4 mg SL Q5M PRN 06/06/17 07/13/19 History Famotidine TAB* [Pepcid 20 MG TAB*] 20 mg PO BID 10/20/17 07/13/19 History Atorvastatin* [Lipitor 20 MG*] 20 mg PO DAILY 02/02/18 07/13/19 History Fluticasone-Salmeterol 250-50* 1 dose INH BID 02/02/18 07/13/19 History [Advair Diskus 250-50*] Aspirin 81 mg CHEW TAB* 81 mg PO DAILY #30 tab.chew 02/04/18 07/13/19 Rx Potassium Chlor TAB* [Klor Con ER 20 meq PO DAILY 03/21/18 07/13/19 History TAB*] Rivaroxaban TAB(*) [Xarelto 20 mg] 20 mg PO DAILY 03/21/18 07/13/19 History Spironolactone TAB* [Aldactone 25 mg PO DAILY 03/21/18 07/13/19 History TAB*] traMADol TAB* [Ultram*] 50 mg PO Q6HR PRN #20 tab MDD 4 10/26/18 07/13/19 Rx Hydrocortisone SUPP* [Anusol HC 25 mg SD QAM 7 Days #7 supp 02/22/19 07/13/19 Rx Supp*] - History of Current Complaint Chief Complaint: EDChestPainROMI Time Seen by Provider: 07/13/19 19:07 Hx Obtained From: Patient Onset/Duration: Started Hours Ago, Still Present Timing: Intermittent, Lasting Hours Initial Severity: Mild Current Severity: Severe Pain Intensity: 10 Pain Scale Used: 0-10 Numeric Chest Pain Location: Diffuse Chest Pain Radiates: No Character: Sharp/Stabbing Aggravating Factor(s): Nothing Alleviating Factor(s): Nothing Associated Signs and Symptoms: Positive: Chest Pain, Diaphoresis, Palpitations, Edema. Negative: Shortness of Breath, Abdominal Pain - Additional Pertinent History Primary Care Physician: ZURI - Allergy/Home Medications Allergies/Adverse Reactions: Allergies Allergy/AdvReac Type Severity Reaction Status Date / Time amoxicillin [From Augmentin] Allergy Swelling Verified 02/22/19 11:07 clavulanic acid Allergy Swelling Verified 02/22/19 11:07 [From Augmentin] mushroom Allergy Rash Verified 02/22/19 11:07 Penicillins Allergy Anaphylatic Verified 02/22/19 11:07 Shock VINEGAR Allergy Intermediate Hives Uncoded 02/22/19 11:07 Home Medications: Home Medications Nebivolol TAB (NF) [Bystolic TAB (NF)] 10 mg PO DAILY 09/20/16 [History Confirmed 07/13/19] Nitroglycerin TAB 0.4 MG* 0.4 mg SL Q5M PRN 06/06/17 [History Confirmed 07/13/19 ] Famotidine TAB* [Pepcid 20 MG TAB*] 20 mg PO BID 10/20/17 [History Confirmed ] Atorvastatin* [Lipitor 20 MG*] 20 mg PO DAILY 02/02/18 [History Confirmed ] Fluticasone-Salmeterol 250-50* [Advair Diskus 250-50*] 1 dose INH BID 02/02/18 [ History Confirmed 07/13/19] Aspirin 81 mg CHEW TAB* 81 mg PO DAILY #30 tab.chew 02/04/18 [Rx Confirmed 07/13] Potassium Chlor TAB* [Klor Con ER TAB*] 20 meq PO DAILY 03/21/18 [History Confirmed 07/13/19] Rivaroxaban TAB(*) [Xarelto 20 mg] 20 mg PO DAILY 03/21/18 [History Confirmed ] Spironolactone TAB* [Aldactone TAB*] 25 mg PO DAILY 03/21/18 [History Confirmed 07/13/19] traMADol TAB* [Ultram*] 50 mg PO Q6HR PRN #20 tab MDD 4 10/26/18 [Rx Confirmed 07/13/19] Hydrocortisone SUPP* [Anusol HC Supp*] 25 mg SD QAM 7 Days #7 supp 02/22/19 [Rx Confirmed 07/13/19] PMH/Surg Hx/FS Hx/Imm Hx Endocrine/Hematology History: Reports: Hx Anticoagulant Therapy - xarelto Denies: Hx Diabetes, Hx Sickle Cell Disease, Hx Thyroid Disease Cardiovascular History: Reports: Hx Angina, Hx Cardiac Arrest, Hx Coronary Artery Disease, Hx Hypercholesterolemia, Hx Hypertension, Hx Myocardial Infarction, Other Cardiovascular Problems/Disorders - HEART DISEASE, CARDIAC EVENT MONITOR IMPLANTED Denies: Hx Congestive Heart Failure, Hx Pacemaker/ICD, Hx Valvular Heart Disease Respiratory History: Reports: Hx Asthma, Hx Sleep Apnea Denies: Hx Chronic Obstructive Pulmonary Disease (COPD) GI History: Reports: Hx Gastroesophageal Reflux Disease Denies: Hx Ulcer History: Reports: Hx Renal Disease - cysts bilateral kidneys , Other Problems/Disorders - bilat cyst on kidneys Musculoskeletal History: Reports: Hx Arthritis, Hx Back Problems, Other Musculoskeletal History - RANDEE Denies: Hx Scoliosis Sensory History: Reports: Hx Cataracts - right eye, Hx Contacts or Glasses, Hx Hearing Aid, Hx Hearing Problem Opthamlomology History: Reports: Hx Cataracts - right eye, Hx Contacts or Glasses Neurological History: Reports: Hx Seizures, Hx Transient Ischemic Attacks (TIA) Denies: Hx Dementia, Hx Headaches, Other Neuro Impairments/Disorders Psychiatric History: Reports: Hx Depression Denies: Hx Panic Disorder - Cancer History Hx Chemotherapy: No - Surgical History Surgical History: Yes Surgery Procedure, Year, and Place: APR 2004 sinus [facility] ;. 2007 left knee arthroscopy [facility] ;. 2012 left tympanoplasty WITH STAPES IMPLANT ([employer] MALLEOUS HEAD SERIAL # [id number] - PER [employer] INFORMATION SENT TO MRI ON ; IMPLANT IS STAINLESS STEEL STATES SOME DEGREE OF MAGNETISM TESTED MRI SAFE AT 1.5T ONLY - DR ANAYA APPROVED THIS INFORMATION FOR 1.5T ONLY). [facility] [place] ;. 2014 LEFT REVISION TYMPANOPLASTY/ MASTOIDECTOMY [facility] ;. 2011 HEART CATH - NO STENTS ;. 2010 HEART CATH WITH cardiac stents x 4 (PROMUS DRUG-ELUTING STENT OKAY IN NORMAL MODE ONLY, MAX 720 GAUSS/CM @ 1.5T) [facility] ;. REVEAL LINQ EVENT MONITOR PLACED- 12/15/15- ED CAME OVER W/ [employer] MACHINE & DID A DOWNLOAD SO THAT NOTHING WOULD BE ERASED Hx Anesthesia Reactions: Yes - SEIZURE LIKE ACTIVITY; REINTUBATION AFTER LEFT EAR 2012 - Immunization History Date of Tetanus Vaccine: UTD Date of Influenza Vaccine: 03/05 Infectious Disease History: No Infectious Disease History: Denies: Hx Clostridium Difficile, Hx Hepatitis, Hx Human Immunodeficiency Virus (HIV), Hx of Known/Suspected MRSA, Hx Shingles, Hx Tuberculosis, Hx Known/ Suspected VRE, Hx Known/Suspected VRSA, History Other Infectious Disease, Traveled Outside the [place] in Last 30 Days - Family History Known Family History: Positive: Cardiac Disease, Hypertension, Diabetes - Social History Alcohol Use: None Hx Substance Use: No Substance Use Type: Reports: None Hx Tobacco Use: Yes Smoking Status (MU): Former Smoker Type: Cigarettes Length of Time of Smoking/Using Tobacco: 10-12 YRS Have You Smoked in the Last Year: No Review of Systems Positive: Skin Diaphoresis Positive: Palpitations, Chest Pain Negative: Shortness Of Breath Negative: Abdominal Pain Positive: Edema - BLE Neurological/Mental Status: Other - dizziness All Other Systems Reviewed And Are Negative: Yes Physical Exam - Summary Physical Exam Summary: Appearance: The patient is morbidly obese in no acute distress and in no acute pain. Skin: The skin is warm and dry, and skin color reflects adequate perfusion. HEENT: The head is normocephalic and atraumatic. The pupils are equal and reactive. The conjunctivae are clear and without drainage. Nares are patent and without drainage. Mouth reveals moist mucous membranes, and the throat is without erythema and exudate. The external ears are intact. The ear canals are patent and without drainage. The tympanic membranes are intact. Neck: The neck is supple with full range of motion and non-tender. There are no carotid bruits. There is no neck vein distension. Respiratory: Chest is non-tender. Lungs are clear to auscultation and breath sounds are symmetrical and equal. Cardiovascular: Heart is regularly irregular rate and regular rhythm. There is no murmur or rub auscultated. There is no peripheral edema and pulses are symmetrical and equal. Abdomen: The abdomen is soft and non-tender. There are normal bowel sounds heard in all four quadrants and there is no organomegaly palpated. Musculoskeletal: There is no back tenderness noted. Extremities are non-tender with full range of motion. There is good capillary refill. There is no peripheral edema or calf tenderness elicited. Neurological: Patient is alert and oriented to person, place and time. The patient has symmetrical motor strength in all four extremities. Cranial nerves are grossly intact. Deep tendon reflexes are symmetrical and equal in all four extremities. Psychiatric: The patient has an appropriate affect and does not exhibit any anxiety or depression. Triage Information Reviewed: Yes Vital Signs On Initial Exam: Initial Vitals Temp Pulse Resp BP Pulse Ox 96.1 F 77 20 144/96 95 07/13/19 18:48 07/13/19 18:48 07/13/19 18:48 07/13/19 18:48 07/13/19 18:48 Vital Signs Reviewed: Yes Procedures - Sedation Patient Received Moderate/Deep Sedation with Procedure: No Diagnostics - Vital Signs Vital Signs Temp Pulse Resp BP Pulse Ox 07/13/19 18:50 58 144/96 95 07/13/19 18:48 96.1 F 77 20 144/96 95 - Laboratory Result Diagrams: 07/13/19 19:27 07/13/19 19:27 Lab Statement: Any lab studies that have been ordered have been reviewed, and results considered in the medical decision making process. - Radiology Chest XR Radiology Interpretation Completed By: ED Physician Summary of Radiographic Findings: No acute process. This imaging scan was reviewed and interpreted by Dr. Cadet. Pending official report. - EKG 1853 Cardiac Rate: NL - 67 BPM EKG Rhythm: Sinus Rhythm Summary of EKG Findings: Ventricular bigeminy with underlying normal sinus rhythm, no STEMI. This EKG was reviewed and interpreted by Dr. Cadet. 2000 Cardiac Rate: NL - 69 BPM EKG Rhythm: Sinus Rhythm Ectopy: PVCs Summary of EKG Findings: Normal sinus rhythm, PVCs, no STEMI. This EKG was reviewed and interpreted by Dr. Cadet. Chest Pain Course/Dx - Course Course Of Treatment: Mr. Glaser presented complaining of chest pain essentially all day long. He is well-known to me and reports a similar history 2 previous evaluations. He does have an extensive cardiac history and his heart score is 3 given that the story is consistent with previous stories that were noncardiac. His initial EKG is unchanged from previous EKGs although he had frequent PVCs. His chest x-rays are unremarkable as are his labs including an initial troponin. At this time we are waiting for repeat troponin. - Diagnoses Provider Diagnoses: Chest pain Discharge ED - Sign-Out/Discharge Documenting (check all that apply): Sign-Out Patient Signing out patient TO: Nasim Theodore - Patient is a sign-out to Dr. Nasim Theodore MD, at 2200 on 07/13/2019, pending second troponin and disposition. - Discharge Plan Condition: Stable Patient Education Materials: Chest Pain (DC) Referrals: Carlin Chu MD [Primary Care Provider] - 3 Days Additional Instructions: Follow up with your primary care provider in 2-3 days. Return to the emergency department for any new or worsening symptoms. - Billing Disposition and Condition Condition: STABLE - Attestation Statements Document Initiated by Katelynn: Yes Documenting Scribe: Carleen Mireles Provider For Whom Katelynn is Documenting (Include Credential): Dr. Zhao Cadet MD Scribe Attestation: Carleen Kim scribed for Dr. Zhao Cadet MD on 07/13/19 at 2145. Scribe Documentation Reviewed: Yes Provider Attestation: The documentation as recorded by the Carleen brown accurately reflects the service I personally performed and the decisions made by me, Dr. Zhao Cadet MD Status of Scribpatricia Document: Viewed
[2019-07-13 19:36] LABS: ABS Eosinophils 0.1 10^3/ul (0-0.6); ABS Lymphocytes 1.4 10^3/ul (1.0-4.8); ABS Monocytes 0.5 10^3/ul (0-0.8); Eosinophil % 2.1 %; Hematocrit 43 % (42-52); Hemoglobin 14.6 g/dL (14.0-18.0); Lymphocyte % 22.8 %; Mean Corpuscular HGB Conc 34 g/dL (31-36); Mean Corpuscular Hemoglobin 29 pg (27-31); Mean Corpuscular Volume 85 fL (80-94); Nucleated Red Blood Cells % 0.1; Platelet Count 229 10^3/uL (150-450); Red Blood Count 5.09 10^6 /uL (4.18-5.48); Red Cell Distribution Width 15 % (10-15); White Blood Count 6.1 10^3/uL (3.5-10.8)
--- OUTSIDE RECORDS SUMMARY | 2019-07-13 19:37 | XMS REPORT | Summary of Care ---
:1965 Author Organization [facility] Address [address] [address] Care Team Providers Name Role Phone Carlin Chu MD Primary Care Provider Encounter Details Date Type Department Care Team Description 06/29/2019 Hospital Encounter [facility] Cardiac Metal Pattern Maker Trevor Nixon, Short Procedure [address] [place] [address] [address] [phone] [place] [address] [phone] Allergies Active Allergy Reactions Severity Noted Date Comments Amoxicillin Swelling 11/27/2016 Mushrooms Swelling 02/05/2013 Penicillins Swelling 02/05/2013 documented as of this encounter (statuses as of 06/30/2019) Medications Medication Sig Dispensed Refills Start Date End Date Status ALBUTEROL IN Take by 0 Active inhalation. Fluticasone Take by 0 Active Propionate, Inhal, inhalation. (FLOVENT IN) famotidine (PEPCID) 20 Take 20 mg by 0 Active MG Oral Tab mouth TWICE DAILY. fluticasone-salmeterol Take 1 INHL by 0 Active diskus (ADVAIR DISKUS) inhalation TWICE 250-50 MCG/DOSE DAILY. Inhalation AEROSOL POWDER, BREATH ACTIVATED rivaroxaban (XARELTO) Take 20 mg by 0 Active 20 MG Oral mouth DAILY. TabIndications: Pulmonary Embolism Aspirin 81 MG Oral Tab Take 81 mg by 0 Active mouth DAILY. atorvastatin (LIPITOR) Take 1 Tab by 90 Tab 3 06/16/2018 Active 40 MG Oral mouth DAILY. TabIndications: ASHD (arteriosclerotic heart disease) BYSTOLIC 10 MG Oral TAKE 1 TABLET BY 180 Tab 3 02/23/2019 Active Tab MOUTH TWICE DAILY spironolactone TAKE 1 TABLET BY 90 Tab 3 04/09/2019 Active (ALDACTONE) 25 MG Oral MOUTH ONCE DAILY TabIndications: Essential hypertension documented as of this encounter (statuses as of 06/30/2019) Active Problems Problem Noted Date Encounter for loop recorder at end of battery life 06/15/2019 Overview: Added automatically from request for surgery [id number] Palpitations 06/26/2018 Cerebrovascular accident (CVA) 06/26/2018 Dyslipidemia 06/26/2018 care home current use of anticoagulant therapy 06/26/2018 Morbid obesity 06/26/2018 Obstructive sleep apnea syndrome 06/26/2018 Pulmonary embolism 06/26/2018 Hypertension 06/26/2018 ASHD (arteriosclerotic heart disease) 12/23/2017 Peripheral artery disease 03/01/2017 Primary osteoarthritis of left knee 06/15/2016 Pain of right thumb 02/21/2016 Syncope 12/08/2015 PVC (premature ventricular contraction) 10/10/2015 History of surgical procedure 05/11/2015 BMI 45.0-49.9, adult 04/24/2013 DJD (degenerative joint disease) of knee 02/20/2013 documented as of this encounter (statuses as of 06/30/2019) Social History Tobacco Use Types Packs/Day Years Used Date Former Smoker Smokeless Tobacco: Never Used Alcohol Use Drinks/Week oz/Week Comments No Sex Assigned at Date Recorded Not on file Job Start Date Occupation Industry Not on file Not on file Not on file Travel History Travel Start Travel End No recent travel history available. documented as of this encounter Last Filed Vital Signs Vital Sign Reading Time Taken Comments Blood Pressure 172/92 06/29/2019 11:45 AM EST Pulse 55 06/29/2019 11:45 AM EST Temperature 36.3 06/29/2019 9:15 AM C (97.3 EST F) Respiratory Rate 14 06/29/2019 11:45 AM EST Oxygen Saturation 98% 06/29/2019 11:45 AM EST Inhaled Oxygen Concentration - - Weight 157.2 kg (346 lb 9.6 oz) 06/29/2019 9:15 AM EST Height 175.3 cm (5' 9") 06/29/2019 9:15 AM EST Body Mass Index 51.18 06/29/2019 9:15 AM EST documented in this encounter Discharge Summaries Nasim Chapa NP - 06/29/2019 10:50 AM EST [id number] [facility] [address] [address] Discharge Summary Patient ID: Cas Glaser [id number]. 1965 Admission date: 06/29/19 Discharge date: 06/29/2019 Admitting Physician: Trevor Nixon MD Primary Care Provider: Carlin Chu III, MD Discharge Physician: Dr. Trevor Nixon Reason for Admission: Loop removal Encounter for loop recorder at end of battery life Principal Diagnosis: Palpitations Syncope Contributory Past Medical History: Hypertension Cardiovascular disease ASHD Discharged Condition: Stable Hospital Course: Mr. Glaser presented to the hospital for Loop recorder removal related to his history of palpitations and syncope. The procedure was completed without difficulty and was tolerated well. He was monitored post procedure then discharged later the same day. Procedures: 06/29/2019 loop removal Complications: None Medications: Current Discharge Medication List CONTINUE these medications which have NOT CHANGED ADVAIR DISKUS 250-50 MCG/DOSE Aepb Generic drug: fluticasone-salmeterol diskus Dose: 1 INHL Refills: 0 Take 1 INHL by inhalation TWICE DAILY. ALBUTEROL IN Refills: 0 Take by inhalation. Aspirin 81 MG Tabs Dose: 81 mg Refills: 0 Take 81 mg by mouth DAILY. atorvastatin 40 MG Tabs Commonly known as: LIPITOR Dose: 40 mg Quantity: 90 Tab Refills: 3 Take 1 Tab by mouth DAILY. BYSTOLIC 10 MG Tabs Generic drug: Nebivolol HCl Doctor's comments: Please consider 90 day supplies to promote better adherence Quantity: 180 Tab Refills: 3 TAKE 1 TABLET BY MOUTH TWICE DAILY famotidine 20 MG Tabs Commonly known as: PEPCID Dose: 20 mg Refills: 0 Take 20 mg by mouth TWICE DAILY. FLOVENT IN Refills: 0 Take by inhalation. rivaroxaban 20 MG Tabs Commonly known as: XARELTO Dose: 20 mg For: Blockage of Blood Vessel to Lung by a Particle Refills: 0 Take 20 mg by mouth DAILY. spironolactone 25 MG Tabs Commonly known as: ALDACTONE Quantity: 90 Tab Refills: 3 TAKE 1 TABLET BY MOUTH ONCE DAILY Patient Instructions: Activity/Restrictions: No heavy lifting or strenuous exercise for 2 days[address] No [address] for two days Skin/Wound Care: Remove bandage tomorrow. Keep area clean and dry. Inspect daily. If redness, edema,or drainage, or if fever, please notify our service at [phone]. Discharge Diet: Heart healthy Diet Special Instructions: Please keep previously arranged appointments. Follow up with arrhythmia center per protocol. Provider Signature: CRISTOBAL Gutiérrez documented in this encounter Discharge Instructions Radha Umana RN - 06/29/2019Provider's Instructions Activity/Restrictions: No heavy lifting or strenuous exercise for 2 days. No driving for two days Skin/Wound Care: Remove bandage tomorrow. Keep area clean and dry. Inspect daily. If redness, edema,or drainage, or if fever, please notify our service at [phone]. Discharge Diet: Heart healthy Diet Special Instructions: Please keep previously arranged appointments. Follow up with arrhythmia center per protocol. Discharge Provider: Nasim Chapa NP Attending: Trevor Nixon MD Time: 10:49 Moderate Sedation WHAT YOU NEED TO KNOW: Moderate sedation, or conscious sedation, is medicine used during procedures to help you feel relaxed and calm. You will be awake and able to follow directions without anxiety or pain. You will remember little to none of the procedure. Moderate sedation can be used for procedures such as a colonoscopy, wound repair , cataract removal, or dental work. The medicine is given as a pill, shot, inhaled solution, or injection through an IV. DISCHARGE INSTRUCTIONS: Self-care: Ask when you can drive a car or use heavy equipment. An adult should drive you home and stay with you. You may feel sleepy and need help doing things at home. Follow your healthcare provider's directions about eating, activity, and medicines. Do not makeimportant decisions for 24 hours. Follow up with your healthcare provider as directed: Write down your questions so you remember to ask them during your visits. Contact your healthcare provider if: You have a fever. You have a cough or headache. You have an upset stomach or feel like vomiting. You have questions or concerns about your condition or care. Seek care immediately or call 911 if: You have sudden trouble breathing. You have a severe headache. 2016 [employer]. Information is for End User's use only and may not be sold, redistributed or otherwise used for commercial purposes. All illustrations and images included in CareNotes are the copyrighted property of [employer] or [employer]. The above information is an social worker aide only. It is not intended as medical advice for individual conditions or treatments. Talk to your doctor, nurse or pharmacist before following any medical regimen to see if it is safe and effective for you. Cardiac Loop Recorder Insertion WHAT YOU NEED TO KNOW: A cardiac loop recorder is a device used to diagnose heart rhythm problems, such as a fast or irregular heartbeat. It is implanted in your left chest or armpit, just under the skin. The device records a pattern of your heart's rhythm , called an EKG. Your device records automatic EKGs, depending on howyour healthcare provider programs it. You may also receive a handheld controller. You press a buttonon the controller when you have symptoms, such as dizziness or lightheadedness. The device will record an EKG at that moment. The recording can help your healthcare provider see if your symptoms may becaused by heart rhythm problems. Your healthcare provider will remove the device after it has collected enough data. You may need the device for up to 3 years. The procedure to remove the device is similar to the procedure used to implant it. DISCHARGE INSTRUCTIONS: Wound care: Remove dressing in 3 days. Continue to keep site clean and dry. Do not expose to direct water for an additional 4 days. Return to activity: Most people can return to normal activities soon after the procedure. Your diamond cutter may want to know if your work involves electrical current or high-voltage equipment. Ask about other electrical items that could interfere with your cardiac loop recorder. Contact your diamond cutter if: You have a fever or chills. Your wound is red, swollen, or draining pus. You have questions or concerns about your condition or care. Seek care immediately or call 911 if: You feel weak, dizzy, or faint. You lose consciousness. 2015 [employer]. Information is for End User's use only and may not be sold, redistributed or otherwise used for commercial purposes. All illustrations and images included in CareNotes are the copyrighted property of [employer] or [employer]. The above information is an social worker aide only. It is not intended as medical advice for individual conditions or treatments. Talk to your doctor, nurse or pharmacist before following any medical regimen to see if it is safe and effective for you. For questions or concerns regarding your discharge instructions, you may call the Metal Pattern Maker at [phone] Mon-Fri 7a-5p to speak with a RN. If you have any questions or concerns about your loop recorder, please contact the [facility]hythm[facility] Centerat [phone]. documented in this encounter Plan of Treatment Name Type Priority Associated Date/Time Diagnoses ELECTROPHYSIOLOGY Electrophysiology Routine Encounter for 06/29/2019 10:34 PROCEDURE loop recorder at AM EST end of battery life Health Maintenance Due Date Last Done Comments MEDICARE ANNUAL WELLNESS VISIT 1965 PNEUMOCOCCAL 0-64 YRS (1 of 1 09/22/1969 - PPSV23) DTaP/Tdap/Td Vaccines (1 - 09/22/1974 Tdap) HIV SCREENING 09/22/1978 HEPATITIS C SCREENING 2003 Colonoscopy 09/22/2013 ZOSTER IMMUNIZATION SERIES (1 09/22/2013 of 2) LIPID DISORDER SCREENING 12/23/2018 12/23/2017 INFLUENZA VACCINE (#1) 2019 DIABETES SCREENING 03/06/2019 03/06/2018, 12/23/2017, 11/27/2016 DEPRESSION SCREENING 01/01/2020 12/31/2018 HEPATITIS A IMMUNIZATION Aged Out No longer eligible based SERIES on patient's age to complete this topic HPV IMMUNIZATION SERIES Aged Out No longer eligible based on patient's age to complete this topic MENINGOCOCCAL VACCINE IMM Aged Out No longer eligible based on patient's age to complete this topic documented as of this encounter Implants Explanted Type Area Material Lister Device Identifier Shelf Expiration Model / Date Serial / Lot Linq - Loop Recorder [employer] / Explanted: Qty: 1 on 06/29/2019 by Trevor Nixon MD at [facility] [id number] / documented as of this encounter Procedures Procedure Name Priority Date/Time Associated Diagnosis Comments SIGN PERMIT 06/29/2019 12:00 PM EST documented in this encounter Results Not on filedocumented in this encounter Visit Diagnoses Diagnosis Encounter for loop recorder at end of battery life documented in this encounter Administered Medications Medication Order MAR Action Action Date Dose Rate Site acetaminophen (TYLENOL) tablet 650 mg 650 mg, Oral, Q4 HRS PRN, Starting Sat06/29/19 at 0922, Until Sat06/29/19 at 1419, headache aluminum & magnesium hydroxide-simethicone II (MYLANTA II) oral suspension 400-400-40 MG/5ML 30 mL, Oral, Q4 HRS PRN, Starting Sat06/29/19 at 0922, Until Sat06/29/19 at 1419, Heartburn - 1st line FentaNYL (PF) (SUBLIMAZE) injection (PF) Given 06/29/2019 10:22 AM EST 100 mcg INTRAOP, Starting Sat06/29/19 at 1022, Until Sat06/29/19 at 1419, 3 Intra-Operative flumazenil (ROMAZICON) injection 0.2 mg 0.2 mg, Intravenous, PRN, Starting Sat06/29/19 at 0922, Until Sat06/29/19 at 1419, Respiratory rate < ___, Administer for reversal of Benzodiazepines when RR < 10 and patient somnolent/difficult to arouse, Administer for reversal of Benzodiazepines when RR < 10 and patient somnolent/difficult to arouse. Give Flumazenil 0.2 mg IV (drawn up with a TB syringe) over 30 seconds in a rapid infusion IV line. May repeat every 1 minute as needed, up to a maximum dose of 1 mg, until a change in alertness or RR is observed. Notify physician if NO response is observed. VS and oxygenation must be monitored and documented every 10 minutes for at least 90 minutes, and then until stable, when Flumazenil is administered for benzodiazepine reversal., lidocaine (XYLOCAINE) injection 2 Given 06/29/2019 10:23 AM EST 40 mL Chest - Left % INTRAOP, Starting Sat06/29/19 at 1023, Until Sat06/29/19 at 1419, 3 Intra-Operative midazolam (VERSED) injection Given 06/29/2019 10:22 AM EST 0.5 mg INTRAOP, Starting Sat06/29/19 at 1017, Until Sat06/29/19 at 1419, 3 Intra-Operative Given 06/29/2019 10:17 AM EST 2 mg naloxone (NARCAN) injection 0.2 mg 0.2 mg, Intravenous, PRN, Starting Sat06/29/19 at 0922, Until Sat06/29/19 at 1419, Respiratory rate < ___, Administer for reversal of Opioids when RR < 10 and patient somnolent/difficult to arouse, Administer for reversal of Opioids when RR < 10 and patient somnolent/difficult to arouse. Give Narcan 0.2 mg IV (drawn up with a TB syringe) over 30 seconds in a rapid infusion IV line. May repeat every 2 minutes as needed, until a change in alertness or RR is observed. Notify physician if no response after 3 doses. VS and oxygenation must be monitored and documented every 10 minutes for at least 90 minutes, and then until stable, when Narcan is administered for opioid reversal., normal saline IV Intravenous, at 30 mL/hr, CONTINUOUS, Starting Sat06/29/19 at 0930, Until Sat06/29/19 at 1419, 2 Day of Surgery Pre Procedure, Normal Saline at 30 mL via pump with extension tubing in Left arm at 6 am, documented in this encounter Insurance Payer Benefit Plan / Subscriber ID Effective Dates Phone Address Type Group MEDICARE MEDICARE PART A xxxxxxxxxxx 1997-Present Medicare & B MEDICAID [facility] xxxxxxxx 2018-Present Medicaid [place] MEDICAID documented as of this encounter Advance Directives Code Status Date Activated Date Inactivated Comments Full Code 06/29/2019 9:22 AM Does the patient have decision making Yes capacity? Order was discussed with: Unable to determine at this time I discussed all options and Unable to determine at this time (full patient/surrogate requested and agreed to: code until choice is made and new order placed)
--- OUTSIDE RECORDS SUMMARY | 2019-07-13 19:37 | XMS REPORT | Summary of Care ---
:1965 Author Organization [facility] Address [address] [place] [address] Care Team Providers Name Role Phone Carlin Chu MD Primary Care Provider Reason for Visit Reason Comments Follow Up Encounter Details Date Type Department Care Team Description 05/26/2019 Office Visit [facility] Lorna Ceci Encounter for loop [address] CRISTOBAL Luque recorder at end of [place] [id number] [address] battery life (Primary [phone] [place] [address] Dx) [phone] Allergies Active Allergy Reactions Severity Noted Date Comments Amoxicillin Swelling 11/27/2016 Mushrooms Swelling 02/05/2013 Penicillins Swelling 02/05/2013 documented as of this encounter (statuses as of 05/26/2019) Medications Medication Sig Dispensed Refills Start Date [...] as of this encounter (statuses as of 05/26/2019) Active Problems Problem Noted Date Palpitations 06/26/2018 Cerebrovascular accident (CVA) 06/26/2018 Dyslipidemia 06/26/2018 snf current use of anticoagulant therapy 06/26/2018 Morbid [...] as of this encounter (statuses as of 05/26/2019) Social History Tobacco Use Types Packs/Day Years [...] Sign Reading Time Taken Comments Blood Pressure 134/72 05/26/2019 8:19 AM EST Pulse 61 05/26/2019 8:19 AM EST Temperature - - Respiratory Rate - - Oxygen Saturation - - Inhaled Oxygen Concentration - - Weight 156 kg (344 lb) 05/26/2019 8:19 AM EST Height 175.3 cm (5' 9") 05/26/2019 8:19 AM EST Body Mass Index 50.8 05/26/2019 8:19 AM EST documented in this encounter Plan of Treatment Date Type Specialty Care Team Description 06/30/2019 Office Visit Cardiology Christie Tai PA [address] [place] [address] [phone] Health Maintenance Due Date Last Done Comments MEDICARE ANNUAL WELLNESS VISIT 1965 PNEUMOCOCCAL 0-64 YRS (1 of 1 09/22/1969 - PPSV23) DTaP/Tdap/Td Vaccines (1 - 09/22/1974 Tdap) HIV SCREENING 09/22/1978 HEPATITIS C SCREENING 2003 Colonoscopy 09/22/2013 ZOSTER IMMUNIZATION SERIES (1 09/22/2013 of 2) INFLUENZA VACCINE (#1) 2019 DIABETES SCREENING 03/06/2019 03/06/2018, 12/23/2017, 11/27/2016 LIPID DISORDER SCREENING 06/16/2019 06/16/2018, 12/23/2017 DEPRESSION SCREENING 01/01/2020 12/31/2018 HEPATITIS A IMMUNIZATION Aged Out No longer eligible based SERIES on patient's age to complete this topic HPV IMMUNIZATION SERIES Aged Out No longer eligible based on patient's age to complete this topic MENINGOCOCCAL VACCINE IMM Aged Out No longer eligible based on patient's age to complete this topic documented as of this encounter Results Not on filedocumented in this encounter Visit Diagnoses Diagnosis Encounter for loop recorder at end of battery life documented in this encounter Insurance Payer Benefit Plan / Subscriber ID Effective Dates Phone Address Type Group MEDICARE MEDICARE PART A xxxxxxxxxxx 1997-Present Medicare & B MEDICAID [facility] xxxxxxxx 2018-Present [place] documented as of this encounter
--- OUTSIDE RECORDS SUMMARY | 2019-07-13 19:37 | XMS REPORT | Continuity of Care Document ---
:1965 External Reference #:[id number] Author Name Bo Loaiza M.D. 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 Onset: 07/16/2012 Palpitations Nguyễn Alcaraz M.D., [facility] Onset: 02/24/2013 Chronic ischemic heart disease Nguyễn Alcaraz M.D., [facility] Onset: 2012 Obstructive sleep apnea syndrome Carlin Chu M.D. Onset: 06/18/2013 Morbid obesity Carlin Chu M.D. Onset: 06/18/2013 Obesity Nguyễn Alcaraz M.D., [facility] Onset: 12/22/2013 Myalgia & Myositis Unspecified Nguyễn Alcaraz M.D., [facility] Onset: 2013 Premature beats Nguyễn Alcaraz M.D., [facility] Onset: 11/14/2015 Transient cerebral ischemia Nguyễn Alcaraz M.D., [facility] Onset: 11/14/2015 Cerebral artery occlusion Nguyễn Alcaraz M.D., [facility] Onset: 11/14/2015 Localized, primary osteoarthritis Charlene Fernandes M.D. Onset: 06/18/2016 Impaired fasting glycaemia Carlin Chu M.D. Onset: 07/26/2016 Chest pain Nguyễn Alcaraz M.D., [facility] Onset: 11/19/2016 Mild intermittent asthma Carlin Chu M.D. Onset: 01/29/2017 Seizure Bo Loaiza M.D. Onset: 07/05/2017 Altered mental status Bo Loaiza M.D. Onset: 09/19/2017 Pulmonary embolism Maria G Schultz, [facility] Onset: 02/04/2018 Sleep apnea Bo Loaiza M.D. Onset: 05/12/2018 Headache Bo Loaiza M.D. Onset: 05/28/2019 Social History Type Date Description Comments Sex Unknown Cigarette Use Quit - Age 25 ETOH Use Denies alcohol use Tobacco Use Start: Unknown Patient is a former quit smoking End: Unknown smoker cigarettes 1989; 1ppd max, began age 14 Recreational Drug Use Denies Drug Use Smoking Status Reviewed: 05/28/19 Patient is a former quit smoking smoker [...] every 30tabs Carlin Morgan 03/06/2018 20mg Tablets radha Chu M.D. Klor-Con M20 1 tablet PO daily 90tabs Nguyễn Corneliorichie, 12/31/2016 20Meq M.D., FACC, Tablets ER [facility] Bystolic 1 by mouth once a 90tabs Nguyễn Corneliorichie, 12/04/2016 10mg Tablets day M.D., FACC, FSCAI Cpap Mask And cpap supplies - 1un Carlin Morgan 05/15/2016 Supplies headKimberley bell M.D. Device cushion, tubing, filters, for sleep apnea dx g47.33 Metoprolol Succinate 1 by mouth every 90tabs Nguyễn Corneliorichie, 01/27/2016 ER day M.D., DONALDC, 50mg Tablets ER 24HR [facility] Proair HFA inhale two puffs 8.500gm Rica Lucy, 03/09/2015 108(90Base) by mouth 4 times M.DSandie mcg/Act Aerosol daily as needed Compression Stockings use on both legs 1Pair 782.3 Carlin Morgan 09/30/2014 for chronic edema Jacobo Chu Misc Triamterene/Hydrochlo Take 1 Capsule By 90caps Carlin Morgan 06/26/2013 rothiazide Mouth Once Daily Jacobo Chu 37.5-25mg Capsules Cpap Machine With 1un Carlin Morgan 02/13/2013 Setting 16 CM Water Jacobo Chu Nitrostat dissolve one 25tabs Carlin Morgan 07/11/2012 0.4mg Tablets tablet under the Jacobo Chu Sub tongue every 5 minutes as needed for chest pain. do not exceed a total of 3 doses in 15 minute Famotidine Take One Tablet 60tabs Carlin ESandie 20mg Tablets By Mouth Twice Jacobo Chu Daily Albuterol Sulfate 1 vial via Carlin E. nebulizer 4 times Jacobo Chu (2.5mg/3ML) 0.083% daily as needed Nebulizer Atorvastatin Calcium 1 by mouth every 90tabs Carlin E. day Jacobo Chu 20mg Tablets Advair Diskus inhale 1 dose by 60units Carlin ESandie mouth twice daily Jacobo Chu 250-50mcg/Dose Aerosol Aspirin 81 Low Dose 1 by mouth every Unknown day 81mg Chewtabs Immunizations CPT Code Status Date Vaccine Lot # [id number] Given 01/29/2017 Influenza Virus Vaccine, Quadrivalent, Split, [id number] Preservative Free [id number] Given 05/15/2016 Influ Virus Vaccine, Quadrivalent, Split Virus, [id number] [address] Given 03/31/2015 Influenza Virus Vaccine, Quadrivalent, Split, [id number] Preservative Free 12952 Given 09/30/2014 Tdap - Tetanus/Diptheria/Acellular Pertussis [id number] 51305 Given 02/05/2014 Influenza Virus Vaccine, Quadrivalent, Split, [id number] Preservative Free [id number] Given 06/18/2013 Fluvirin Im 3Yrs And Older [id number] Q2038 Given 02/07/2012 Fluzone Vaccine [id number] 26719 Given 12/13/2011 Pneumonia Vaccine [id number] 77363 Given 03/07/2010 Influenza Virus 3Yrs & Over [id number] 79294 Given 04/22/2009 Influenza Virus Vaccine, Pandemic Formulation 87056 Given 04/22/2009 Administration Swine Flu Shot 27610 Given Unknown Tetanus And Diptheria (Td) For Adult Use Preservative Free Vital Signs Date Vital Result Comment 05/28/2019 2:03pm Height 69 inches 5'9" Weight 340.25 lb Heart Rate 72 /min BP Systolic Sitting 102 mmHg BP Diastolic Sitting 76 mmHg Respiratory Rate 20 /min BMI (Body Mass Index) 50.2 kg/m2 01/13/2019 1:05pm Height 69 inches 5'9" Weight 345.00 lb Heart Rate 63 /min BP Systolic Sitting 138 mmHg BP Diastolic Sitting 75 mmHg O2 % BldC Oximetry 97 % BMI (Body Mass Index) 50.9 kg/m2 Results Test Acquired Date Facility Test Result H/L Range Note Laboratory test 01/10/2019 [facility] Troponin-I 0.00 ng/mL < 0.04 [address] (TnI) [place] [address] [phone] CBC Auto Diff 01/10/2019 [facility] White 5.2 10^3/uL Normal 3.5-10.[address] [place] [address] Count [phone] Red Blood Count 5.26 10^6/uL Normal 4.18-5.48 [...] Blood Cells % 0.0 Laboratory test 01/10/2019 [facility] Partial 55.0 High 26.0- 38.[address] Th[place] [address] PTT [phone] Lactic Acid 1.3 mmol/L Normal 0.5-2.0 2 B-Type Natriuretic Peptide BNP 95 pg/mL <=100 Comp Metabolic 01/10/2019 [facility] Sodium 139 mmol/L Normal 135-[address] [place] [address] [phone] Potassium 3.9 mmol/L Normal 3.5-5.0 Chloride 107 [...] Egfr 79.1 >60 3 Laboratory test 01/10/2019 [facility] Magnesium 2.0 mg/dL Normal 1.9-2.[address] [place] [address] [phone] Creatine Kinase(CK) 335 U/L High 10-223 Troponin-I (TnI) 0.01 ng/mL <0.04 4 CKMB 01/10/2019 [facility] CKMB 3.1 ng/mL Normal 0.6-6.[address] ng/[place] [address] [phone] Laboratory test 01/10/2019 [facility] TSH 3.10 Normal 0.34- 5.[address] (Thyroid mcIU/[place] [address] Stim Horm) [phone] Urinalysis 01/10/2019 [facility] Urine Yellow Profile [address] [place] [address] [phone] Urine Appearance Clear Urine Specific [place] 1.012 Normal 1.010-1.030 Urine pH 6.0 Normal 5-9 Urine Urobilinogen Negative Negative Urine Ketones Negative Negative Urine Protein Negative Negative Urine Leukocytes Negative Negative Urine Blood 2+ Abnormal Negative Urine Nitrite Negative Negative Urine Bilirubin Negative Negative Urine Glucose Negative Negative Urine White Blood Cell Absent Absent Urine Red Blood Cell 2+(6-10/hpf) Abnormal Absent Urine Bacteria Absent Absent 1 Troponin-I testing on Plasma Separator Tubes (PST) has a known false positive rate of 0.20-0.40%. All positive troponins reflex immediately to secondary confirmatory testing. Using the MyDROBE DxI 800 Access Immunoassay systems, the 99th percentile upper reference limit was demonstrated to be < 0.03 ng/mL. 2 [facility] Severe Sepsis and Septic Shock Management [...] immediately to secondary confirmatory testing. Using the Grata Access Immunoassay systems, the 99th percentile upper reference limit was demonstrated to be < 0.03 ng/mL. Procedures Date Code Description Status 10/05/2015 [id number] Diabetic Retinal Eye Exam Completed 02/08/2015 [id number] Colonoscopy Completed Medical Devices Description No Information Available Encounters Type Date Location Provider Dx Diagnosis Office Visit 01/13/2019 [facility] Internal Carlin Chu, M54.5 Low back pain 1:00p Medicine - [facility] Assessments Date Code Description Provider 05/28/2019 G47.30 Sleep apnea, unspecified Bo Loaiza M.D. 05/28/2019 E66.01 Morbid (severe) obesity due to excess Bo Loaiza M.D. calories 05/28/2019 R07.9 Chest pain, unspecified Bo Loaiza M.D. 05/28/2019 R51 Headache Bo Loaiza M.D. 01/13/2019 M54.5 Low back pain Carlin Chu M.D. Plan of Treatment Future Appointment(s):11/26/2019 10:15 am - Bo Loaiza M.D. at [facility]05/28/2019 - Bo Loaiza M.D.G47.30 Sleep apnea , unspecifiedFollow up:Follow up in 6 bvyezcJ51.01 Morbid (severe) obesity due to excess [id number] Chest pain, [id number] Headache Functional Status Description No Information Available Mental Status Description No Information Available Referrals Description No Information Available
[2019-07-13 19:43] LABS: INR 1.49 (0.82-1.09)
[2019-07-13 19:53] LABS: Albumin 4.4 g/dL (3.2-5.2); Albumin/Globulin Ratio 1.5 (1-3); BUN/Creatinine Ratio 12.8 (8-20); Calcium 9.8 mg/dL (8.6-10.3); EGFR African American 67.5 (>60); EGFR Non-African American 55.8 (>60); Globulin 2.9 g/dL (2-4); Potassium 3.7 mmol/L (3.5-5.0); Total Bilirubin 0.5 mg/dL (0.2-1.0); Total Protein 7.3 g/dL (6.4-8.9)
[2019-07-13 19:54] LABS: Troponin I 0.01 ng/mL (<0.03)
--- NOTE | 2019-07-13 22:36 | ED ---
Progress - Progress Note Progress Note: This pt is a sign out to Dr. Nasim Theodore from Dr. Zhao Cadet at shift change 2200 07/13/2019 pending admission to [facility] for further treatment. His heart score is currently a 5. He has non specific EKGs without change and still has mild chest discomfort. The pt states that he is not comfortable with a D/C home. Course/Dx - Course Course Of Treatment: This pt is a sign out to Dr. Nasim Theodore from Dr. Zhao Cadet at shift change 2200 07/13/2019 pending admission to [facility] for further treatment. His heart score is currently a 5. He has non specific EKGs without change and still has mild chest discomfort. The pt states that he is not comfortable with a D/C home. He will be admitted to [facility] for further cardiac work up by Dr. Collado, Hospitalist with a Dx of CP. - Diagnoses Provider Diagnoses: Chest pain Discharge ED - Sign-Out/Discharge Documenting (check all that apply): Patient Departure - admitted, Receiving Sign -Out Receiving patient FROM: Zhao Cadet - Discharge Plan Condition: Stable Disposition: ADMITTED TO [facility] - Billing Disposition and Condition Condition: STABLE Disposition: Admitted to [facility] - Attestation Statements Document Initiated by Katelynn: Yes Documenting Scribe: Vahe Ingram Provider For Whom Katelynn is Documenting (Include Credential): Nasim Theodore MD Scribpatricia Attestation: Vahe Kim, scribed for Nasim Theodore MD on 07/14/19 at 0440. Scribe Documentation Reviewed: Yes Provider Attestation: The documentation as recorded by the Vahe brown accurately reflects the service I personally performed and the decisions made by me, Nasim Theodore MD Status of Scribe Document: Viewed
[2019-07-14] MEDS ORDERED: hydrALAZINE IV* 20 MG/ML VIAL IV SLOW PU PRN (00:01)
[2019-07-14] MEDS ORDERED: Acetaminophen TAB* 325 MG PO PRN (00:01)
[2019-07-14] MEDS ORDERED: Ondansetron INJ* 2 MG/ML VIAL IV PRN (00:01)
[2019-07-14] MEDS ORDERED: Albuterol/Ipratropium NEB.SOL* Albuterol 2.5 MG/Ipratropium 0.5 MG 3 ML INH PRN (00:05)
[2019-07-14] MEDS ORDERED: Nebivolol TAB (NF) 5 MG TAB PO SCH (01:00)
[2019-07-14] MEDS ORDERED: Morphine 10 MG/ML VIAL (1 ml) IV ONE (01:08)
--- NOTE | 2019-07-14 01:57 | HP ---
CC: Dr. Chu * HISTORY AND PHYSICAL: DATE OF ADMISSION: 07/13/19 PRIMARY CARE PROVIDER: Dr. Chu. MY ATTENDING PHYSICIAN WHILE IN THE HOSPITAL: Dr. Collado * (report dictated by Justin Bains NP). CHIEF COMPLAINT: 1. Chest pain. 2. Palpitations. HISTORY OF PRESENT ILLNESS: Mr. 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 He noticed while doing this, he was having frequent palpitations that were coming and going. As he sat down and rested, the palpitations would go away. They were not bothersome. He went back up to his apartment after he finished doing what he was doing and he noted that at that point that palpitations were worse. He sat down, rested for 10 minutes, it did not get better, he got up, he went and had something to eat. He unfortunately states that this did not help. He went and sat down on his computer and the next thing he knew he started becoming sweaty, he became lightheaded, he felt like he was going to faint. He started having chest discomfort and pain, described as a squeezing sensation that did go up into the right side of his jaw. He notes that he did fall asleep at the computer. When he woke up, the pain returned. It was 10/10. He was concerned because he felt like he was going to pass out, he did not though. He states that he has not had any shortness of breath. No recent cough, fever, or chills. No recent URI-type symptoms. He states that he has not taken his Bystolic for approximately 3 to 4 days now as he ran out. He has been taking his other medications. He was concerned because of the lightheadedness, the chest discomfort and we were asked to evaluate for admission given his risk factors of coronary artery disease and the fact that he was having significant chest discomfort. We were asked to evaluate for admission. PAST MEDICAL HISTORY: Significant for: 1. CAD. 2. SD. 3. RANDEE. 4. Hypertension. 5. Hyperlipidemia. 6. Asthma. 7. Seizure disorders, questionable per the patient. 8. PVD. 9. Mobitz type 1. 10. Chronic chest pain. 11. History of CVA, which is cryptogenic in nature. 12. PE. PAST SURGICAL HISTORY: 1. He has had heart catheterization with 3 stents. 2. Sinus surgery. 3. Knee arthroscopy. 4. Inner ear surgery. MEDICATIONS: Home meds according to the list that he provided includes: 1. Tramadol 50 mg every 6 hours as needed. 2. Aldactone 25 mg daily. 3. Xarelto 20 mg daily. 4. Potassium 20 mEq daily. 5. Nitro 0.4 mg sublingual q.5 minutes x3 p.r.n. chest pain. 6. Bystolic 10 mg daily. 7. Hydrocortisone suppository 25 mg WI daily. 8. Advair 1 dose inhaled b.i.d. 9. Famotidine 20 mg p.o. b.i.d. 10. Lipitor 20 mg daily. 11. Aspirin 81 mg daily. ALLERGIES TO MEDICATIONS: Include PENICILLIN. He is allergic to VINEGAR and MUSHROOMS as well. FAMILY HISTORY: His mother had CHF. His father's history is unknown. SOCIAL HISTORY: He is a former smoker, quit over 10 years ago. Does not drink alcohol. Surrogate decision maker is his sister. REVIEW OF SYSTEMS: There is no documented fever. He denied having any significant weight change. There is no double vision. He denies having any ear discharge. There is no rhinorrhea. No sore throat. No thyroid enlargement. There was chest pain from HPI. There was no shortness of breath. No abdominal pain. No nausea, no vomiting. No dysuria, no frequency. No seizure, no loss of consciousness reported. Review of 14 systems completed, all others negative. PHYSICAL EXAMINATION GENERAL: At this time, Mr. Glaser is a 53-year-old male patient, he is sitting in the ED stretcher, he does not appear to be in any acute distress, he appears to be well nourished and well developed. VITAL SIGNS: Blood pressure 156/98, pulse 64, respirations 18, O2 sat 99%, temperature 96.1. HEENT: Head: Atraumatic and normocephalic. Eyes: EOMs are intact. Sclerae anicteric and not pale. Throat: Oral mucosa appears to be moist. No oropharyngeal erythema. NECK: Supple. LUNGS: Clear to auscultation bilaterally. There were no rales or rhonchi. He did have wheezing, expiratory bilaterally in the lower lobes. HEART: Heart sounds S1, S2. Regular rate and rhythm. No murmurs, rubs, or gallops. ABDOMEN: Soft. It was flat. It was nontender. Bowel sounds were present. EXTREMITIES: Pulses were 2+ throughout. He has some mild peripheral edema. He is moving all 4 extremities with 5/5 strength. NEUROLOGICAL: He is awake. He is alert. He is oriented x3. Speech is clear. Tongue midline. He has no gross focal deficits. SKIN: Intact. DIAGNOSTIC STUDIES/LAB DATA: WBC of 6.1, RBC of 5.09, hemoglobin 14.6, hematocrit of 43, platelet count 229. INR 1.49. His sodium was 142, potassium 3.7, chloride of 107, bicarb 29, BUN 17, creatinine 1.33, glucose 99. Lactate 1.2. Calcium 9.8. Total bili 0.5, AST 17, ALT 27, alk phos 107. Troponin 0.01. Albumin 4.4. He did have an EKG obtained today. EKG at 1999 shows normal sinus rhythm with PVC and no ST elevation. He did have elevated T-wave inversion in V6, biphasic in V5. If you review that to the EKG from earlier, his T wave changes are similar. He was in trigeminy on the previous EKG, but no ST elevations or T wave inversions were noted. Old medical records were reviewed. ASSESSMENT AND PLAN: Mr. Glaser is a 53-year-old male patient coming in to the ED today with complaints of chest discomfort and palpitations. We were asked to evaluate for admission. He will be admitted under observation status for: 1. Chest pain. Again, he does have significant risk factors for coronary artery disease. He did describe the pain as consistent with his previous MIs and because of this, I do think he is warranted to undergo a stress test, which I have ordered. His last stress test that I have here was in 2017, so at this point I will repeat. He is on aspirin already. Currently, he states his chest pain is better. He is on a beta-angelo, which he has not taken in 3 days, I am going to restart that tonight. Continue his statin therapy. 2. Coronary artery disease with a history of SD. Again, we will continue his aspirin, beta-angelo, and statin therapy. 3. History of pulmonary embolism. Continue his Xarelto. 4. Hypertension. Continue meds as prescribed. We will restart the medication , his Bystolic. 5. Hyperlipidemia. Continue statin therapy. 6. Asthma. We will continue his inhalers. He did have wheezing on exam. I have ordered p.r.n. DuoNebs. 7. History of possible seizure disorder. We will continue to monitor. There has been no report of seizure-like activity. 8. Peripheral vascular disease. Continue his aspirin and statin therapy. 9. Mobitz type 1. He will be placed on telemetry. 10. History of cerebrovascular accident. Continue aspirin, statin therapy and secondary prevention. 11. DVT prophylaxis: Xarelto is ordered. He is high risk. 12. Code status: Full code. 13. Fluids, electrolytes, and nutrition: He is n.p.o. after midnight. TIME SPENT: Time spent on admission was 60 minutes; greater than half time spent [id number] with the patient, obtaining my history and physical and the other half time was spent going over the plan of care with the patient and implementing the plan of care. I did discuss the plan of care with my attending, Dr. Collado. JUSTIN BAINS NP [id number]/[facility] #: [id number] MEDHAT
[2019-07-14 03:02] LABS: ABS Eosinophils 0.2 10^3/ul (0-0.6); ABS Lymphocytes 1.7 10^3/ul (1.0-4.8); ABS Monocytes 0.5 10^3/ul (0-0.8); ABS Neutrophils 3.4 10^3/ul (1.5-7.7); Eosinophil % 2.8 %; Hematocrit 42 % (42-52); Hemoglobin 14.2 g/dL (14.0-18.0); Mean Corpuscular HGB Conc 34 g/dL (31-36); Mean Corpuscular Hemoglobin 29 pg (27-31); Mean Corpuscular Volume 85 fL (80-94); Mean Platelet Volume 8.5 fL (7.4-10.4); Platelet Count 198 10^3/uL (150-450); Red Blood Count 4.97 10^6 /uL (4.18-5.48); Red Cell Distribution Width 14 % (10-15); White Blood Count 5.9 10^3/uL (3.5-10.8)
[2019-07-14] MEDS: Nebivolol TAB (NF) 2.5 MG TAB PO SCH ×2 (03:39→08:44)
[2019-07-14 04:08] LABS: Calcium 9.5 mg/dL (8.6-10.3); Potassium 3.7 mmol/L (3.5-5.0)
[2019-07-14 04:14] LABS: BUN/Creatinine Ratio 15.6 (8-20); EGFR Non-African American 70.2 (>60); HDL Cholesterol 33.6 mg/dL
[2019-07-14] MEDS: Mometasone/Formoter 200/5 MDI INH SCH ×2 (07:56→19:36)
[2019-07-14] MEDS: Famotidine TAB* 20 MG PO SCH ×2 (08:43→21:24)
[2019-07-14] MEDS: Atorvastatin* 20 MG TAB PO SCH (08:43)
[2019-07-14] MEDS: Aspirin 81 mg CHEW TAB* 81 MG TAB.CHEW PO SCH (08:43)
[2019-07-14] MEDS: Spironolactone TAB* 25 MG PO SCH (08:44)
[2019-07-14] MEDS ORDERED: Influenza VAC *QUAD* 2019-20* 0.5 ML SYRINGE IM ONE (09:00)
[2019-07-14] MEDS ORDERED: Rivaroxaban TAB(*) 20 MG TAB PO SCH ×2 (09:00→18:00)
--- NOTE | 2019-07-14 09:22 | PN ---
Subjective Date of Service: 07/14/19 Interval History: Mr. Glaser is feeling okay this morning. He is still having occasional palpitations, but not as severe or frequent as yesterday. Very short episodes ( seconds) of mild chest pain. Minimal SOB, but improved after inhaler this morning. No concerns from nursing. Family History: Unchanged from Admission Social History: Unchanged from Admission Past Medical History: Unchanged from Admission Objective Active Medications: Acetaminophen (Tylenol Tab*) 650 mg PO Q4H PRN PAIN - MILD Albuterol/Ipratropium (Duoneb (Albuterol 2.5 Mg/Ipratropium 0.5 Mg)) 1 neb INH Q4H PRN SOB/WHEEZING Aspirin (Aspirin 81 Mg Chew Tab*) 81 mg PO DAILY ARIEL Atorvastatin Calcium (Lipitor*) 20 mg PO DAILY ARIEL Famotidine (Pepcid Tab*) 20 mg PO BID ARIEL Hydralazine HCl (Apresoline Iv*) 5 mg IV SLOW PU Q6H PRN BLOOD PRESSURE Mometasone Furoate/Formoterol Fumar (Dulera 200/5 Mdi*) 2 puff INH BID ARIEL Nebivolol (Bystolic Tab (Nf)) 10 mg PO DAILY ARIEL Ondansetron HCl (Zofran Inj*) 4 mg IV Q6H PRN NAUSEA Rivaroxaban (Xarelto(*)) 20 mg PO QPM ARIEL Spironolactone (Aldactone Tab*) 25 mg PO DAILY ARIEL Tramadol HCl (Ultram*) 50 mg PO Q6HR PRN PAIN Vital Signs - 8 hr 07/14/19 07/14/19 07/14/19 01:29 02:40 04:00 Temperature 97.8 F Pulse Rate 61 Respiratory 18 18 18 Rate Blood Pressure 129/68 (mmHg) O2 Sat by Pulse 100 Oximetry 07/14/19 07/14/19 07/14/19 07:15 07:58 08:01 Temperature 97.7 F Pulse Rate 54 54 54 Respiratory 16 14 14 Rate Blood Pressure 138/65 (mmHg) O2 Sat by Pulse 96 96 96 Oximetry Oxygen Devices in Use Now: None Appearance: Middle-aged obese male lying in bed in NAD Ears/Nose/Mouth/Throat: Mucous Membranes Moist Neck: NL Appearance and Movements; NL JVP, Trachea Midline Respiratory: Symmetrical Chest Expansion and Respiratory Effort, - - Minimal wheezing Cardiovascular: NL Sounds; No Murmurs; No JVD, RRR Abdominal: NL Sounds; No Tenderness; No Distention Extremities: No Edema Neurological: Alert and Oriented x 3 Lines/Tubes/Other Access: Clean, Dry and Intact Peripheral IV Result Diagrams: 07/14/19 02:48 07/14/19 02:48 Assess/Plan/Problems-Billing Assessment: Mr. Glaser is a 53 yo M with PMH of CAD, RANDEE, HTN, HLD, asthma, PVD, Mobitz type 1, crytogenic CVA, chronic chest pain, PE; who presented to the ED with c/o CP and palpitations and was admitted for inpatient stress. - Patient Problems (1) Chest pain Code(s): R07.9 - CHEST PAIN, UNSPECIFIED Comment: - Presented with CP and palpitations - Known history of CAD with [place] - EKG without changes from baseline - Negative trop x3 - 2 day stress test d/t weight (2) PVCs (premature ventricular contractions) Code(s): I49.3 - VENTRICULAR PREMATURE DEPOLARIZATION Comment: - Presented with palpitations - Noted to have occasional PVCs on tele, no other abnormalities - May benefit from changing from nebivolol to metoprolol if he continues to have symptomatic PVCs (3) CAD (coronary artery disease) Code(s): I25.10 - ATHSCL HEART DISEASE OF [place] CORONARY ARTERY W/O ANG PCTRS Comment: - [place] and 3 stents in 2010 - Continue aspirin, atorvastatin (4) History of pulmonary embolism Code(s): Z86.711 - PERSONAL HISTORY OF PULMONARY EMBOLISM Comment: - Continue Xarelto (5) HTN (hypertension) Code(s): I10 - ESSENTIAL (PRIMARY) HYPERTENSION Comment: - Normotensive - Continue nebivolol, spironolactone (6) Asthma Code(s): J45.909 - UNSPECIFIED ASTHMA, UNCOMPLICATED Comment: - Faint wheezing on exam - Regis Rivera PRN (7) Dyslipidemia Code(s): E78.5 - HYPERLIPIDEMIA, UNSPECIFIED Comment: - Continue atorvastatin (8) PVD (peripheral vascular disease) Code(s): I73.9 - PERIPHERAL VASCULAR DISEASE, UNSPECIFIED Comment: - Continue aspirin, atorvastatin (9) Morbid obesity Code(s): E66.01 - MORBID (SEVERE) OBESITY DUE TO EXCESS CALORIES Comment: - BMI 50 (10) DVT prophylaxis Comment: - Xarelto (11) Full code status Code(s): Z78.9 - OTHER SPECIFIED HEALTH STATUS Comment: Status and Disposition: Observation for 2 day stress test. Anticipate d/c home tomorrow if stress test is negative. Attending: Jus De La Fuente
[2019-07-14] MEDS ORDERED: Regadenoson* 0.4 MG/5 ML SYRINGE ONE (12:55)
[2019-07-14] MEDS ORDERED: Morphine INJ* 4 MG/ML 1 ML SYRINGE (NEW SYRINGE VERSION) IV ONE (19:43)
[2019-07-14] MEDS: traMADol TAB* 50 MG PO PRN (22:46)
[2019-07-15] MEDS: Famotidine TAB* 20 MG PO SCH (10:03)
[2019-07-15] MEDS: Aspirin 81 mg CHEW TAB* 81 MG TAB.CHEW PO SCH (10:03)
[2019-07-15] MEDS: Atorvastatin* 20 MG TAB PO SCH (10:03)
[2019-07-15] MEDS: Spironolactone TAB* 25 MG PO SCH (10:04)
[2019-07-15] MEDS: traMADol TAB* 50 MG PO PRN (10:04)
[2019-07-15] MEDS: Mometasone/Formoter 200/5 MDI INH SCH (10:07)
[2019-07-15] MEDS: Nebivolol TAB (NF) 2.5 MG TAB PO SCH ×2 (10:42→10:44)
[2019-07-15] MEDS ORDERED: CMCS: Nebivolol TAB (NF) 2.5 MG TAB PO ONE (10:42)
[2019-07-15 19:58] VITALS: BP 151/86
--- NOTE | 2019-07-16 02:22 | DS ---
CC: Dr. Carlin Chu; Dr. Conor Flores * DISCHARGE SUMMARY: DATE OF ADMISSION: 07/13/19 DATE OF DISCHARGE: 07/15/19 PRIMARY CARE PROVIDER: Dr. Carlin Chu. OUTPATIENT CREMATORY ATTENDANT: Dr. Conor Flores. MY ATTENDING WHILE IN THE HOSPITAL: Dr. Jus De La Fuente.* (DICTATED BY HELEN NAJERA) PRIMARY DISCHARGE DIAGNOSES: Chest pain, shoulder pain, likely musculoskeletal in origin. Diabetes mellitus type 2. SECONDARY DISCHARGE DIAGNOSES: 1. History of myocardial infarction in 2010, status post 3 stents. 2. History of unprovoked pulmonary embolus, on chronic anticoagulation. 3. Hypertension. 4. Hyperlipidemia. 5. Chronic intermittent chest pain. 6. Obstructive sleep apnea. 7. Asthma. 8. Questionable seizure disorder. 9. Peripheral vascular disease. 10. Heart block, type 1. 11. History of cryptogenic cerebrovascular accident. STUDIES DONE WHILE IN THE HOSPITAL: Chest x-ray from 07/13/19 read as no evidence of acute cardiopulmonary disease. The patient's 2 EKGs are nonischemic. Nuclear medicine scan from 07/15/19 read as high risk patient on the nuclear portion given large perfusion defect consistent with infarct and LV dilatation. These are consistent with 3 previous stress tests. Shoulder x-ray read as negative for fracture. Glenohumeral and AC joints are unremarkable. MEDICATIONS AT DISCHARGE: 1. Nebivolol 10 mg p.o. daily. 2. Nitroglycerin 0.4 mg sublingually q.5 minutes as needed. 3. Famotidine 20 mg p.o. b.i.d. 4. Advair Diskus 250/50 one dose inhalation b.i.d. 5. Lipitor 20 mg p.o. daily. 6. Aspirin 81 mg p.o. daily. 7. Spironolactone 25 mg p.o. daily. 8. Xarelto 20 mg p.o. daily. 9. Potassium chloride 20 mEq p.o. daily. 10. Tramadol 50 mg p.o. q.6 hours as needed. 11. Hydrocortisone suppository 25 mg MA daily as needed. 12. Tylenol 650 mg p.o. q.4 hours as needed. New medication at discharge: None. Medications discontinued at discharge: None. HOSPITAL COURSE: This is a brief summary of the patient's presentation. For more details, please see the history and physical from Justin Bains NP on . 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 The patient missed no other doses of his medications. The patient in the emergency department continued to have chest pain, felt uncomfortable going home. The patient was admitted to the hospital. The patient had 3 negative troponins. The patient's hemoglobin A1c was 6.6. The patient continued to have on and off palpitations and chest pain, though this decreased in frequency over the course of the hospitalization; however, on the night of 07/14/19, the patient had shoulder pain in his left shoulder, which then radiated back into his chest. He does not remember any trauma to the shoulder. The pain was reproduced with palpation and not associated with any symptoms and worst he got was 7/10 and did respond to the medications. The patient had a 2-day nuclear medicine stress test, which was read as high risk as above, but consistent with his previous studies. The patient's case and report were discussed with Dr. Vianey Abdi of Cardiology, who recommended no further workup while inpatient, but follow up with Cardiology as outpatient. The patient had shoulder x-ray as above due to the character of the patient's chest pain. The patient was stable and amenable for discharge on 07/15/19. PHYSICAL EXAMINATION ON DAY OF DISCHARGE: General: The patient is an 53-year- old male who appears older than stated age and sitting comfortably in bed, in no acute distress. Vital Signs: Temperature 97.5, pulse rate 58, respiratory rate 16, oxygen saturation 96% on room air, blood pressure 143/84. HEENT: Normocephalic, atraumatic. Sclerae anicteric. No conjunctival injection. Nasal mucosa moist. Oral mucosa moist. No oropharyngeal erythema, discharge, or exudate. Neck: Supple, nontender. No lymphadenopathy. No carotid bruits auscultated. No JVDs. Cardiac: Regular rate and rhythm. No clicks, murmurs, gallops, or rubs. Pulses 2+ in bilateral dorsalis pedis, posterior tibialis, and radial areas. Respiratory: Clear to auscultation bilaterally. No wheezes, rales, or rhonchi. Good air exchange bilaterally. Abdomen: Soft, nontender, and nondistended. Bowel sounds present, normoactive in all 4 quadrants. No hepatosplenomegaly. No abdominal bruits auscultated. No hepatojugular reflux. Genitourinary: No suprapubic or CVA tenderness. Skin: Clean, dry, and intact. No rashes. Neuro: Cranial nerves II through XII intact. Alert and oriented x3. Musculoskeletal: Tenderness to palpation with movement and palpation of the left shoulder. No other crepitus or abnormalities. DISCHARGE PLAN BY PROBLEM: 1. Chest pain, shoulder pain. The patient's pain sounds musculoskeletal. It is unclear why it got worse during his hospitalization. He may have re- aggravated something. However, the patient's pain was controllable with tramadol and Tylenol. The patient has been instructed to rest his arms, use ice and heat, avoid NSAIDs. The patient's stress test showed no reversible infarct and the patient had negative troponins and nonischemic EKGs. The patient is on the same dose of Xarelto as this is unlikely to be a pulmonary embolism. The patient's chest pain was not found to be gastrointestinal in origin. The patient to follow up with his primary care provider within 1 week for monitoring of his chest and shoulder pain and follow up with electrification adviser for continued secondary prevention of myocardial infarction. Continue the patient's aspirin and statin. 2. History of pulmonary embolism. As above, the patient is on the same dose of Xarelto. Continue indefinite anticoagulation due to unprovoked pulmonary embolism. 3. Hypertension. The patient is generally normotensive. Continue the patient' s nebivolol and spironolactone. 4. History of myocardial infarction. Continue secondary prevention as above. Stress test without new perfusion defect or significantly decreased ejection fraction. 5. Obstructive sleep apnea. Continue the patient's home CPAP. 6. Asthma. Continue the patient's Advair. 7. Disposition: Home. 8. Condition: Stable. TIME SPENT: Approximately 60 minutes was spent on this patient's discharge, 30 of which was spent [id number] with the patient obtaining history and physical and discussing treatment plan. HELEN NAJERA [id number]/[facility] #: [id number] MEDHAT
[2019-07-16] MEDS ORDERED: Nebivolol (NF) 10 MG TAB PO SCH (09:00)
== END 2019-07-15 18:19 | disposition home or self-care (01) ==
LOC: ED 18:39 → MEDTELE 23:58 → ED 07-14 00:33 → MEDTELE 07-14 08:32
PROVIDERS: ADMIT Nurse Practitioner Family; ATTEND Internal Medicine
DX: R07.9 Chest pain, unspecified (principal); M25.519 Pain in unspecified shoulder; E11.9 Type 2 diabetes mellitus without complications; I25.2 Old myocardial infarction; Z95.9 Presence of cardiac and vascular implant and graft, unspecified; I10 Essential (primary) hypertension; E78.5 Hyperlipidemia, unspecified; G47.33 Obstructive sleep apnea (adult) (pediatric); J45.909 Unspecified asthma, uncomplicated; I73.9 Peripheral vascular disease, unspecified; R00.2 Palpitations; I25.10 Atherosclerotic heart disease of native coronary artery without angina pectoris; I44.0 Atrioventricular block, first degree; Z86.73 Personal history of transient ischemic attack (TIA), and cerebral infarction without residual deficits; Z86.711 Personal history of pulmonary embolism; Z79.01 Long term (current) use of anticoagulants; Z79.899 Other long term (current) drug therapy; Z88.0 Allergy status to penicillin; Z23 Encounter for immunization
CPT/HCPCS: 36415; 71045; 78452; 80048; 80053; 80061; 83036; 83605; 83880; 84484; 85025; 85610; 90471; 90686; 93005; 93017; 94640; 94660; 96374; 96375; 99285; A9270-GY; A9502; G0008; G0378; J2270; J2785

== ENCOUNTER 2020-06-14 10:43 | Observation (INO) ==
[2020-06-14 11:14] LABS: ABS Eosinophils 0.2 10^3/ul (0-0.6); ABS Lymphocytes 1.7 10^3/ul (1.0-4.8); ABS Monocytes 0.6 10^3/ul (0-0.8); ABS Neutrophils 3.4 10^3/ul (1.5-7.7); Eosinophil % 3.8 %; Hematocrit 43 % (42-52); Hemoglobin 14.5 g/dL (14.0-18.0); Lymphocyte % 28.8 %; Mean Corpuscular HGB Conc 34 g/dL (31-36); Mean Corpuscular Hemoglobin 29 pg (27-31); Mean Corpuscular Volume 86 fL (80-94); Mean Platelet Volume 7.9 fL (7.4-10.4); Nucleated Red Blood Cells % 0.1; Platelet Count 198 10^3/uL (150-450); Red Blood Count 5.03 10^6 /uL (4.18-5.48); Red Cell Distribution Width 15 % (10-15)
[2020-06-14 11:32] LABS: INR 1.63 (0.82-1.09)
[2020-06-14 11:35] LABS: Troponin I 0.01 ng/mL (<0.03)
[2020-06-14 11:58] LABS: ALT 27 U/L (7-52); Albumin 4.3 g/dL (3.2-5.2); Albumin/Globulin Ratio 1.3 (1-3); Alkaline Phosphatase 115 U/L (34-104); BUN/Creatinine Ratio 14.3 (8-20); Blood Urea Nitrogen 14 mg/dL (6-24); CO2 Carbon Dioxide 26 mmol/L (22-32); Chloride 105 mmol/L (101-111); EGFR African American 95.7 (>60); EGFR Non-African American 79.1 (>60); Globulin 3.2 g/dL (2-4); Glucose 107 mg/dL (70-100); Sodium 139 mmol/L (135-145); Total Protein 7.5 g/dL (6.4-8.9)
[2020-06-14 12:05] LABS: Anion Gap 8 mmol/L (2-11)
[2020-06-14] MEDS ORDERED: Morphine 4 MG/ML VIAL (1 ml) IV ONE (12:08)
[2020-06-14] MEDS ORDERED: Iohexol 350 (CONTRAST) 500 ML MDV IV ONE (14:00)
[2020-06-14 14:43] LABS: Troponin I 0.01 ng/mL (<0.03)
[2020-06-14] MEDS ORDERED: Al Hydrox/Mg Hydrox/Simet LIQ 30 ML UDC PO PRN (15:11)
[2020-06-14] MEDS ORDERED: Albuterol HFA INHALER 8 gm MDI INH PRN ×2 (16:01→19:28)
[2020-06-14] MEDS ORDERED: Albuterol/Ipratropium NEB.SOL (2.5/0.5 MG) 3 ML NEB.SOLN INH SCH (18:00)
[2020-06-14] MEDS: methylPREDNISolone SOD 40 mg/ml 1 ml VIAL IV SCH (19:08)
[2020-06-14] MEDS: Mometasone/Formoter 200/5 MDI INH SCH (20:08)
[2020-06-15] MEDS: methylPREDNISolone SOD 40 mg/ml 1 ml VIAL IV SCH ×2 (01:55→09:59)
[2020-06-15] MEDS: Mometasone/Formoter 200/5 MDI INH SCH (07:35)
[2020-06-15] MEDS ORDERED: Perflutren Lipid Microsphere 3 ML VIAL ONE (08:41)
[2020-06-15] MEDS ORDERED: CMC:Nebivolol 2.5 mg TAB (NF) PO SCH (09:00)
[2020-06-15] MEDS ORDERED: Fluticasone/Vilanterol MDI(NF) 200/25 MDI INH SCH (09:00)
[2020-06-15 11:43] LABS: Troponin I 0.01 ng/mL (<0.03)
[2020-06-15 16:26] LABS: C Reactive Protein 5.76 mg/L (<8.01)
[2020-06-15 16:29] VITALS: BP 156/89
[2020-06-15 17:16] LABS: Potassium Redraw 4.1 mmol/L (3.5-5.0)
[2020-06-15 17:19] LABS: Troponin I 0.01 ng/mL (<0.03)
== END 2020-06-15 19:00 | disposition home or self-care (01) ==
LOC: MEDTELE 10:43 → ED 10:43 → MEDTELE 18:03
PROVIDERS: ADMIT Internal Medicine; ATTEND Internal Medicine

== ENCOUNTER 2021-02-10 14:58 | Inpatient (IN) ==
[2021-02-10] MEDS ORDERED: Albuterol HFA INHALER 8 gm MDI INH ONE (15:10)
[2021-02-10 16:15] LABS: ABS Eosinophils 0.1 10^3/ul (0-0.6); ABS Lymphocytes 1.4 10^3/ul (1.0-4.8); ABS Monocytes 0.6 10^3/ul (0-0.8); Hematocrit 41 % (42-52); Hemoglobin 13.4 g/dL (14.0-18.0); Lymphocyte % 22.7 %; Mean Corpuscular HGB Conc 33 g/dL (31-36); Mean Corpuscular Hemoglobin 28 pg (27-31); Mean Corpuscular Volume 87 fL (80-94); Mean Platelet Volume 8.1 fL (7.4-10.4); Nucleated Red Blood Cells % 0.1; Platelet Count 216 10^3/uL (150-450); Red Cell Distribution Width 15 % (10-15); White Blood Count 6.1 10^3/uL (3.5-10.8)
[2021-02-10 16:33] LABS: Albumin 4.1 g/dL (3.2-5.2); Albumin/Globulin Ratio 1.5 (1-3); Calcium 9.4 mg/dL (8.6-10.3); EGFR African American 89.1 (>60); EGFR Non-African American 73.6 (>60); Globulin 2.8 g/dL (2-4); Potassium 4.1 mmol/L (3.5-5.0); Total Bilirubin 0.5 mg/dL (0.2-1.0); Total Protein 6.9 g/dL (6.4-8.9); Troponin I 0.01 ng/mL (<0.03)
[2021-02-10] MEDS ORDERED: Nitro 2% OINT (Nitroglycerin) 1 INCH/PAK TOPICAL ONE (19:21)
[2021-02-10 20:51] LABS: Rapid COVID-19 Molecular Undetected (Undetected)
[2021-02-10] MEDS ORDERED: Iohexol 350 (CONTRAST) 500 ML MDV IV ONE (22:19)
[2021-02-10 23:40] LABS: C Reactive Protein 10.06 mg/L (<8.01)
[2021-02-11] MEDS ORDERED: Albuterol HFA INHALER 8 gm MDI INH PRN ×3 (00:04→15:03)
[2021-02-11] MEDS ORDERED: Albuterol/Ipratropium NEB.SOL (2.5/0.5 MG) 3 ML NEB.SOLN INH PRN (00:13)
[2021-02-11] MEDS ORDERED: Albuterol/Ipratropium NEB.SOL (2.5/0.5 MG) 3 ML NEB.SOLN INH SCH (01:00)
[2021-02-11 01:19] LABS: Magnesium 1.9 mg/dL (1.9-2.7)
[2021-02-11] MEDS: Albuterol HFA INHALER 8 gm MDI INH SCH ×2 (07:52→14:14)
[2021-02-11] MEDS: Mometasone/Formoter 200/5 MDI INH SCH ×2 (07:53→20:21)
[2021-02-11] MEDS: CMCS:Nebivolol 2.5 mg TAB (NF) PO SCH (08:16)
[2021-02-11] MEDS: Enoxaparin 40 MG/0.4 ML SYR SUBCUT SCH (16:52)
[2021-02-12] MEDS ORDERED: Perflutren Lipid Microsphere 3 ML VIAL ONE (07:47)
[2021-02-12] MEDS: Mometasone/Formoter 200/5 MDI INH SCH ×2 (08:06→20:25)
[2021-02-12] MEDS: CMCS:Nebivolol 2.5 mg TAB (NF) PO SCH (08:29)
[2021-02-12] MEDS: Enoxaparin 40 MG/0.4 ML SYR SUBCUT SCH (18:49)
[2021-02-12] MEDS: Heparin 5000 UNITS/ML 1 mL VIAL SUBCUT SCH (21:44)
[2021-02-13] MEDS: Heparin 5000 UNITS/ML 1 mL VIAL SUBCUT SCH ×2 (05:49→16:42)
[2021-02-13] MEDS: Mometasone/Formoter 200/5 MDI INH SCH ×2 (07:35→19:27)
[2021-02-13] MEDS: CMCS:Nebivolol 2.5 mg TAB (NF) PO SCH (10:56)
[2021-02-13] MEDS ORDERED: Regadenoson 0.4 MG/5 ML SYRINGE ONE (14:30)
[2021-02-13] MEDS ORDERED: Enoxaparin 100 MG/ML SYR SUBCUT SCH (19:00)
[2021-02-14] MEDS: Mometasone/Formoter 200/5 MDI INH SCH (07:21)
[2021-02-14 11:29] VITALS: BP 148/94
[2021-02-14] MEDS: CMCS:Nebivolol 2.5 mg TAB (NF) PO SCH (14:36)
== END 2021-02-14 15:51 | disposition home or self-care (01) | DRG 202 ==
LOC: ED 14:58 → MEDTELE 14:58 → SUATTDRO 02-11 01:18
PROVIDERS: ADMIT Internal Medicine; ATTEND Internal Medicine

== ENCOUNTER 2024-03-06 10:08 | Observation (INO) ==
[2024-03-06 10:29] LABS: ABS Basophils 0.1 10^3/uL (0.0-0.1); ABS Eosinophils 0.1 10^3/uL (0.0-0.5); ABS Lymphocytes 2.4 10^3/uL (1.0-4.8); ABS Monocytes 0.9 10^3/uL (0.0-1.1); ABS Neutrophils 6.6 10^3/uL (1.5-7.6); ABS Nucleated RBC 0.01 10^3/ul; Eosinophil % 0.9 %; Hematocrit 43.4 % (38-53); Hemoglobin 14.3 g/dL (13.2-16.3); Lymphocyte % 23.5 %; Mean Corpuscular Hemoglobin 28.3 pg (27-33); Mean Corpuscular Hgb Conc 32.9 g/dL (31-36); Mean Corpuscular Volume 85.8 fL (80-97); Mean Platelet Volume 7.7 fL (7.5-11.2); Platelet Count 250 10^3/uL (150-450); Red Blood Count 5.06 10^6/uL (4.06-5.63); Red Cell Distribution Width 15.4 % (12-17); White Blood Count 10.1 10^3/uL (3.6-10.2)
[2024-03-06 10:41] LABS: INR 1.16 (0.85-1.14)
[2024-03-06 10:58] LABS: High Sens Troponin Baseline 8 pg/mL (<20)
[2024-03-06 11:02] LABS: PCO2 Arterial 40 mmHg (35-45); PO2 Arterial 102 mmHg (80-100)
[2024-03-06 11:15] LABS: ALT 42 U/L (7-52); Albumin 4.3 g/dL (3.2-5.2); Albumin/Globulin Ratio 1.7 (1-3); Alkaline Phosphatase 97 U/L (35-149); Anion Gap 8 mmol/L (2-16); Blood Urea Nitrogen 18 mg/dL (6-24); CO2 Carbon Dioxide 28 mmol/L (22-32); Calcium 9.9 mg/dL (8.6-10.3); Chloride 102 mmol/L (101-111); Creatinine, Serum 1.11 mg/dL (0.67-1.17); Globulin 2.5 g/dL (2-4); Glucose 154 mg/dL (70-100); Sodium 138 mmol/L (135-145); Total Bilirubin 0.6 mg/dL (0.2-1.0); Total Protein 6.8 g/dL (6.4-8.9)
[2024-03-06 12:10] LABS: Potassium Redraw 4.1 mmol/L (3.5-5.0)
[2024-03-06] MEDS ORDERED: Dextrose 50% Syringe 50 ml 25 GM/50 ML SYRINGE IV PUSH PRN (12:19)
[2024-03-06 12:35] LABS: C Reactive Protein 2.51 mg/L (<8.01)
[2024-03-06] MEDS: Enalaprilat IV 1.25 mg/ml 2 ml VIAL (2.5 MG) IV ONE (14:17)
[2024-03-06 14:51] LABS: Erythrocyte Sed Rate 5 mm/Hr (0-19)
[2024-03-06] MEDS: Sulfur Hexaflouride MICROSPHR 25 MG VIAL IV PRN (15:18)
[2024-03-06 16:58] LABS: High Sensitivity Troponin 1 Hr 8 pg/mL (<20)
[2024-03-06] MEDS: Iodixanol 320 (CONTRAST) 100 ML SDV IV ONE (17:31)
[2024-03-06] MEDS: Mometasone/Formoter 100/5 MDI INH SCH (20:40)
[2024-03-06] MEDS: NF:ICOSAPENT ETHYL 1 GM CAPSULE (NF) PO SCH (21:10)
[2024-03-07 06:44] LABS: ABS Eosinophils 0.1 10^3/uL (0.0-0.5); ABS Lymphocytes 1.7 10^3/uL (1.0-4.8); ABS Monocytes 0.6 10^3/uL (0.0-1.1); ABS Neutrophils 4.6 10^3/uL (1.5-7.6); Eosinophil % 1.2 %; Hematocrit 41.2 % (38-53); Hemoglobin 13.7 g/dL (13.2-16.3); Lymphocyte % 24.7 %; Mean Corpuscular Hemoglobin 28.4 pg (27-33); Mean Corpuscular Hgb Conc 33.3 g/dL (31-36); Mean Corpuscular Volume 85.4 fL (80-97); Mean Platelet Volume 7.9 fL (7.5-11.2); Nucleated Red Blood Cells % 0.1 %/100WBC (0.0-0.8); Platelet Count 221 10^3/uL (150-450); Red Blood Count 4.82 10^6/uL (4.06-5.63); Red Cell Distribution Width 15.2 % (12-17); White Blood Count 7.1 10^3/uL (3.6-10.2)
[2024-03-07 07:00] LABS: Calcium 9.3 mg/dL (8.6-10.3); Creatinine, Serum 0.89 mg/dL (0.67-1.17); Magnesium 1.6 mg/dL (1.9-2.7); Potassium 4.1 mmol/L (3.5-5.0); eGFR CKD-EPI 98.1 (>60)
[2024-03-07] MEDS: Aspirin EC 81 mg TAB.EC (enteric coated) PO SCH (08:01)
[2024-03-07] MEDS: Nitroglycerin 0.6 mg TAB SL PRN (09:40)
[2024-03-08] MEDS: Albuterol HFA INHALER 8 gm MDI INH PRN (09:06)
[2024-03-08 11:29] LABS: Albumin 4.2 g/dL (3.2-5.2); Albumin/Globulin Ratio 1.8 (1-3); Calcium 9.6 mg/dL (8.6-10.3); Creatinine, Serum 0.99 mg/dL (0.67-1.17); Globulin 2.4 g/dL (2-4); Magnesium 1.8 mg/dL (1.9-2.7); Potassium 3.8 mmol/L (3.5-5.0); Total Bilirubin 0.7 mg/dL (0.2-1.0); Total Protein 6.6 g/dL (6.4-8.9); eGFR CKD-EPI 87.2 (>60)
[2024-03-08 13:56] VITALS: BP 111/94
== END 2024-03-08 16:12 | disposition home or self-care (01) ==
LOC: EDHOLD 10:08 → ED 10:08 → MEDTELE 13:21
PROVIDERS: ADMIT Student in an Organized Health Care Education/Training Program; ATTEND Internal Medicine Hematology & Oncology